=== PATIENT | female | born 1950 | race Caucasian/White ===

== ENCOUNTER → 2017-10-14 | Outpatient (CLI) | payer BC, MEDICARE ==
[~2017-10-14] MED LIST: COPAXONE20 MG SQ; FENTANYL; FLUTICASONE; GADOBENATE DIMEGLUMINE 1 ML IV ONE; LORTAB 10-5001 EACH PO; RAMIPRIL; Z.0.AMBIEN CR12.5 MG PO; Z.0.ARAVA10 MG PO; Z.0.CARVEDILOL6.25 M PO; Z.0.CYMBALTA60 MG PO; Z.0.LEVOTHYROXINE50 PO; Z.0.MELOXICAM7.5 MG PO; Z.0.OMEPRAZOLE40 MG PO; Z.0.ORENCIA 250 MG25 IV; Z.0.PREDNISONE10 M1 PO; Z.0.PREDNISONE10 MG PO; Z.0.ZYRTEC5 MG PO; [UNRECOGNIZED DRUG - OTHER] PO
[2017-10-14 08:15] LABS: CREATININE, SERUM 0.99 mg/dL (0.57-1.11)
--- NOTE | 2017-10-15 07:21 | Diagnostic Imaging Report ---
EXAMINATION: MRI of the cervical spine HISTORY: Multiple sclerosis COMPARISON: Cervical spine MRI and 12/18/2016 TECHNIQUE: Pre-contrast sagittal T1, T2, STIR; axial T1, T2.. Post contrast axial and sagittal T1. Intravenous Contrast: 10 mL Gadavist. FINDINGS: Spinal Cord: Spinal cord size: Normal T1 lesions: None Enhancing lesions: None T2 lesions: None Others: Vertebrae: Again noted status post ACDF with solid interbody fusion from C4 to C7 Discs: Stable mild degenerative changes without significant spinal canal or foraminal stenoses. Craniocervical junction: Normal. Incidental findings: Partially visualized persistent opacification of the tip of the left mastoid air cells. IMPRESSION: 1. No interval change compared to MRI on 12/10/2016. Particularly no cervical spinal cord demyelinating lesions are seen. 2. Stable postoperative and degenerative changes as detailed above. Signed by: Dr. Yulisa Bonilla M.D. on 10/15/2017 7:18 AM
--- NOTE | 2017-10-15 07:31 | Diagnostic Imaging Report ---
EXAMINATION: MRI of the brain with and without contrast . HISTORY:Multiple sclerosis, weakness. COMPARISON:Brain MRI and 12/18/2016 TECHNIQUE: Axial precontrast T1. Postcontrast axial and sagittal FLAIR, axial DWI, T2, and high axial and coronal fat sat T1. Intravenous contrast: 10 mL Gadavist FINDINGS: T2 lesions: Too numerous and too confluent to count callosal, callosal septal interface, periventricular, castellano radiata, centrum semiovale, cortical subcortical and pontine T2 lesions. T1 lesions: None Enhancing lesions: None Corpus callosum volume: Mild volume loss Brain volume: Mild generalized volume loss Other: No mass, hydrocephalus, hemorrhage, acute or chronic infarcts. Unchanged chronic lacunar infarcts in the bilateral basal ganglia. Persistent partial opacification of the left greater than right mastoid air cells, perhaps effusion. IMPRESSION: 1. Unchanged innumerable confluent mostly supratentorial white matter demyelinating T2 lesions. No discrete new MS lesions. 2. Stable mild callosal and brain volume loss. 3. Unchanged small chronic lacunar infarcts. Signed by: Dr. Yulisa Bonilla M.D. on 10/15/2017 7:28 AM
== END ==
LOC: MRI 06:48
PROVIDERS: ATTEND Psychiatry & Neurology Neurology
DX: G35 Multiple sclerosis (principal)
CPT/HCPCS: 36415; 70553; 72156; 82565; 84520

== ENCOUNTER → 2017-11-11 | Outpatient (CLI) | payer BC, MEDICARE ==
[~2017-11-11] MED LIST changes: +GADOBUTROL 10 MMOL/10 ML VIAL IV ONE
[2017-11-11 09:10] LABS: BLOOD UREA NITROGEN 35 mg/dL (7-26); BUN/CREATININE RATIO 43 (6-25); CREATININE, SERUM 0.82 mg/dL (0.57-1.11); EST GLOMERULAR FILTRATION RATE > 60 ML/MIN (60-)
--- NOTE | 2017-11-13 16:10 | Diagnostic Imaging Report ---
Examination: MRI of the lumbar spine without and with contrast History: Low back pain. Paresthesias right upper leg. History of L4-5 laminectomy, L3-4 fusion 2008. Also history of MS. Comparison: MRI lumbar spine reports 07/18/2013 and 01/17/2012 Technique: Sagittal T1 pre- and post-contrast, T2, STIR; axial T1 pre- and post-contrast, T2; axial proton density angled for the discs. Intravenous contrast: 10 cc of MultiHance FINDINGS: It is assumed that there are 5 lumbar vertebrae. Surgical changes: laminectomy at L3-L4. L3-L4 decompression. Posterior fusion procedure with bilateral pedicle screws and intervertebral spacer at L3-L4. Curvature: Grade 1 anterolisthesis of L2 over L3, L3 over L4 and L4 over L5. Grade 1 mild retrolisthesis of L5 over S1. Levoscoliosis centered at L2-L3. Vertebrae: No acute fracture or aggressive lesion stable endplate irregularities from L2 through L5 without Modic type I changes Conus: Normal, terminating at L1. No T2 or enhancing lesions from T10 to S1. Cauda equina: Unremarkable. Lower thoracic:Grossly patent canal and foramina Paraspinal muscles:Bilateral severe atrophy at the sacral level. Degenerative changes: Disc degeneration with loss of T2 signal from L2 through S1. Decreased intervertebral space at L4-L5. Stable mild depression of the L3 and L4 superior endplates. L1-L2: Unremarkable. L2-L3:Diffuse disc bulge with superimposed right foraminal disc protrusion and mild facet hypertrophy results in mild canal stenosis, severe right and mild left foraminal narrowing, mildly progressed L3-L4: Surgical level. Grade 1 anterolisthesis. No canal stenosis. Mild bilateral foraminal narrowing. L4-L5: Mild diffuse disc bulge and mild facet hypertrophy without significant canal stenosis and mild right foraminal narrowing. Nonvisualization of the ligamentum flavum secondary to previous intervention. L5-S1: Mild diffuse disc bulge with superimposed left subarticular disc protrusion results in no significant canal stenosis, narrowing of the left subarticular recess and severe left foraminal narrowing, mildly progressed. Incidentally noted 2 cm cyst at the right internal pole region. IMPRESSION: Surgical changes at L3-4 and L4-5 without evidence of complication. Severe right foraminal narrowing at L2-L3 secondary to degenerative changes. Severe left foraminal narrowing at L5-S1 secondary to degenerative changes. Other degenerative changes as described above. Mild canal stenosis Signed by: DR Collin Vazquez M.D. on 11/13/2017 4:07 PM
== END ==
LOC: MRI 07:25
PROVIDERS: ATTEND Physical Medicine & Rehabilitation
DX: M54.16 Radiculopathy, lumbar region (principal)
CPT/HCPCS: 36415; 72158; 82565; 84520; A9585

== ENCOUNTER → 2020-01-29 | Outpatient (CLI) | payer BC, MEDICARE ==
[~2020-01-29] MED LIST changes: -GADOBENATE DIMEGLUMINE 1 ML IV ONE; -GADOBUTROL 10 MMOL/10 ML VIAL IV ONE
[2020-01-29 11:07] LABS: CREATININE, SERUM 1.29 mg/dL (0.57-1.11)
--- NOTE | 2020-01-29 14:48 | Diagnostic Imaging Report ---
Exam: Brain MRI without IV contrast History: Multiple sclerosis, radiculopathy Comparison studies: Brain MRI with IV contrast on 10/14/2017. Technique: Sagittal and axial T2 FLAIR, axial T2, axial DWI and axial and coronal T1. IV contrast: None. Findings: T2 lesion load: Number: Too numerous and too confluent count or measure white matter lesions Location: Juxtacortical, subcortical, deep supratentorial and periventricular, callosal septal interface and odell. No gross new lesions. Moreover, degree of lesion confluency somewhat limits evaluation for new lesion. T1 hypointense demyelinating lesions. None of CSF signal intensity. Corpus callosum volume: Mild volume loss. Brain volume: Mild generalized volume loss. Other: Chronic cortical/subcortical right parietal insult along the right superior parietal lobule and pars marginalis with encephalomalacia and gliosis is unchanged. Small chronic lacunar infarcts present within the basal ganglia and in the left thalamus. No mass, hemorrhage, acute ischemia, hydrocephalus or extra axial fluid collection. Incidental findings: Unchanged chronic T2 hyperintense inflammatory mucosal thickening or effusions in the bilateral mastoids. IMPRESSION: 1. No changes from the prior brain MRI of 10/14/2017. 2. Too numerous and too confluent to count white matter lesions which can be seen with the clinical diagnosis of multiple sclerosis or severe chronic microvascular ischemic changes are unchanged. No gross new lesion. 3. Unchanged chronic right superior parietal infarct and small chronic lacunar infarcts. 4. Unchanged mild generalized parenchymal volume loss. Exam was performed without IV contrast which does limit evaluation for potential new active demyelinating lesions. Signed by: Dr. Joaquim Lopez M.D. on 01/29/2020 2:45 PM
--- NOTE | 2020-01-29 15:06 | Diagnostic Imaging Report ---
History: Multiple sclerosis, lumbar radiculopathy. Comparison studies: Cervical spine MRI 10/14/2017. Technique: Sagittal T1, T2 and IR, axial T2 and axial gradient echo Intravenous contrast: None Findings: Alignment: Normal lordosis. No scoliosis. Cervicomedullary junction: No abnormalities. Patent foramen magnum. Soft tissues: No T2 hyperintense inflammatory changes. Spinal cord: No gross cord signal abnormality from the foramen magnum through T1. Vertebrae: Changes of prior anterior cervical discectomy and fusion from C4 to C7. Hardware remains in place at C4-C5 and has been removed at C6-C7. Solid interbody fusion present at C4-C5 and at C6-C7. Degenerative changes: C2-C3: Mildly degenerated disc. Small disc osteophyte complex does not result in significant canal stenosis. Patent neural foramina. C3-C4: Mildly degenerated disc. Small asymmetric right disc osteophyte complex does not result significant canal stenosis. No significant foraminal stenosis. C4-C5: Fused level. No significant canal or foraminal stenosis. C5-C6: Small residual disc space seen on the sagittal T2. Mild bilateral foraminal stenosis due to uncovertebral arthrosis. No significant canal stenosis. C6-C7: Fused level. Mild bilateral foraminal stenosis due to uncovertebral arthrosis. No significant canal stenosis C7-T1: Mildly degenerated disc. Small disc bulge and thickened ligamentum flavum result in mild canal stenosis. Patent neural foramina. IMPRESSION: 1. No changes from the prior cervical spine MRI of 10/14/2017. 2. No evidence of demyelinating disease in the cervical spinal cord. 3. Stable postoperative and degenerative changes with multilevel disc degeneration and mild multilevel foraminal stenosis without significant canal stenosis. Signed by: Dr. Joaquim Lopez M.D. on 01/29/2020 3:02 PM
--- NOTE | 2020-01-29 15:21 | Diagnostic Imaging Report ---
Thoracic spine MRI without IV contrast History: MS, lumbar radiculopathy Comparison studies: Thoracic spine MRI of 01/02/2014 Technique: Sagittal T1, T2 and STIR without contrast; axial and coronal T2. Findings: Several pulse sequences are somewhat limited artifacts related to patient motion. Spinal limitations: Curvature: Mild increased kyphosis at T9 secondary to chronic compression fracture. Paraspinal soft tissues: No T2 hyperintense inflammatory changes. Spinal cord: The spinal cord is normal in size and grossly normal in signal intensity through the tip of the conus at L1. Vertebrae: Chronic T9 compression fracture with approximate 70% height loss with minimal retropulsion which results in mild canal stenosis, unchanged. No acute compression fracture, infection, neoplasm or marrow edema. Degenerative changes: Mild multilevel disc degeneration. Small paracentral disc protrusion at T2-T3 and small disc bulges at T5-T6, T6-T7 and T7-T8 do not result significant canal stenosis. Retropulsed T8 vertebral body with disc osteophyte complex results in mild canal stenosis at T7-T8. Mild foraminal stenosis on the left T8-T9 due to disc ossify complex and facet arthrosis. Mild foraminal stenosis bilaterally at T9-T10 and on the left at T10-T11 due to facet arthrosis. IMPRESSION: 1. No significant changes from the prior lumbar spine MRI of 01/02/2014. 2. No gross cord signal abnormalities to indicate demyelinating disease. 3. Unchanged chronic T9 vertebral body compression fracture with 70% height loss and minimal retropulsion which results in mild canal stenosis. No new compression fracture. 4. Mild multilevel degenerative changes as described. Signed by: Dr. Joaquim Lopez M.D. on 01/29/2020 3:18 PM
--- NOTE | 2020-01-29 16:04 | Diagnostic Imaging Report ---
Exam: Lumbar spine MRI without IV contrast History: MS, lumbar radiculopathy Comparison studies: Lumbar spine MRI 11/11/2017. Technique: Sagittal and axial T2, sagittal T1 and sagittal STIR. Intravenous contrast: None Findings: Number of lumbar vertebral bodies: 5. Alignment: Lumbar levocurvature centered at L3-L4, reversal the usual lumbar lordosis at L4-L5. Minimal grade 1 anterolisthesis of L2 on L3 and L4 and L5 are unchanged. Soft tissues: Chronic postsurgical changes in the dorsal lumbar soft tissues. Paraspinal muscles: Symmetric fatty-replaced atrophy atrophic changes near the lumbosacral junction. Lower thoracic cord: Normal in signal and morphology. The tip of the conus is at L1. Cauda equina: No masses. No arachnoiditis. Vertebrae: Postsurgical changes of prior posterior instrumented fusion and discectomy with disc spacer in place at L3-L4 as well as laminectomies at L3-L4 and L4-L5. A chronic superior endplate depression deformity with mild height loss is unchanged. No acute compression fracture. No infection or neoplasm. Degenerative changes: L1-L2: Patent canal and foramina. No disc herniation. L2-L3: Moderately degenerated disc with degenerative endplate changes without endplate edema.. Grade 1 anterolisthesis of L2 on L3 with associated uncovered disc/disc bulge, thickened ligamentum flavum and facet arthrosis with mild to moderate canal stenosis, bilateral subarticular recess stenosis with potential impingement on the bilateral L3 subarticular nerve roots and severe right and mild left foraminal stenosis. L3-L4: Surgical level. No significant canal or foraminal stenosis. L4-L5: Severely degenerated disc with near complete loss of disc height as well as degenerative endplate changes without endplate edema. Minimal anterolisthesis of L4 on L5 with associated disc/disc bulge asymmetric to the right with new superimposed 12 mm x 8 mm x 13 mm (SI x AP x TV) central disc extrusion result in moderate canal stenosis despite prior laminectomies. Disc herniation impinges on the left L5 nerve root and abuts the descending right S1 nerve root. Disc bulge and thickened ligamentum flavum on the right above the right L5 nerve root. Disc bulge and facet arthrosis result in mild right foraminal stenosis. Patent left foramen. L5-S1: Moderately degenerated disc asymmetrically greater on the left where there are degenerative endplate changes without endplate edema. Asymmetric left disc osteophyte complex and facet arthrosis result in severe left foraminal stenosis. Additional findings: A T2 hyperintense right inferior pole renal lesion is most likely a cyst. IMPRESSION: 1. New L4-L5 disc extrusion impinges on the left L5 nerve root and contributes to moderate canal stenosis despite prior laminectomies at this level. Right L4-L5 subarticular recess also narrowed and disc abuts the right L5 and S1 nerve roots. 2. No other significant changes from the prior lumbar spine MRI of 11/11/2017. 3. Prior posterior L3-L4 fusion and discectomy and laminectomies at L3-L4 and at L4-L5. 4. Degenerative changes with unchanged multilevel disc degeneration, mild to moderate canal stenosis and bilateral subarticular recess stenosis at L2-L3 and severe foraminal stenosis on the right at L2-L3 and on the left at L5-S1. Signed by: Dr. Joaquim Lopez M.D. on 01/29/2020 4:01 PM
== END ==
LOC: MRI 10:00
PROVIDERS: ATTEND Physician Assistant
DX: G35 Multiple sclerosis (principal); R41.3 Other amnesia; M54.16 Radiculopathy, lumbar region
CPT/HCPCS: 36415; 70551; 72141; 72146; 72148; 82565; 84520

== ENCOUNTER 2020-08-02 20:48 | Inpatient (IN) | payer BC, MEDICARE ==
[~2020-08-02] VITALS: Ht 162.6 cm; Wt 59.9 kg
--- OUTSIDE RECORDS SUMMARY | 2020-08-02 21:50 | XMS REPORT | Clinical Summary ---
Author Author [facility] Address Unknown Phone Unavailable Care Team Providers Care Operational Communication Chief Name Role Phone Joseph Ornelas MD PCP Allergies Comments Active Allergy Reactions Severity Noted Date Sulfa (Sulfonamide Rash Low 02/21/2017 Antibiotics) Cimetidine Diarrhea 02/21/2017 Medications End Date Status Medication Sig Dispensed Refills Start Date Active mirtazapine (REMERON Take 30 mg by 0 KAREN-TAB) 30 MG mouth disintegrating tablet nightly. Active omeprazole (PriLOSEC) 40 Take 40 mg by 0 MG capsule mouth daily. Active carvedilol (COREG) 12.5 Take 12.5 mg 0 MG tablet by mouth 2 (two) times a day with meals. Active valACYclovir (VALTREX) Take 500 mg 0 500 MG tablet by mouth 2 (two) times a day. Active LORAZepam (ATIVAN) 0.5 MG Take 0.5 mg 0 tablet by mouth every 6 (six) hours as needed for anxiety. Active levothyroxine (SYNTHROID, Take 88 mcg 0 LEVOXYL) 88 mcg tablet by mouth every morning. Active ergocalciferol (VITAMIN Take 50,000 0 D2) 50,000 unit capsule Units by mouth once a week. Active aspirin (ECOTRIN) 81 MG Take 81 mg by 0 enteric coated tablet mouth daily. Active traMADol (ULTRAM) 50 mg Take 50 mg by 0 tablet mouth every 6 (six) hours as needed for moderate pain. Active predniSONE (DELTASONE) 10 Take 10 mg by 0 mg tablet mouth daily. Active fentaNYL (DURAGESIC) 75 Place 1 patch 0 mcg/hr on the skin every third day. Active fluticasone (FLONASE) 50 2 sprays by 0 mcg/actuation nasal spray Each Nare route daily. Active dimethyl fumarate 240 mg 0 capsule,delayed 7 release(DR/EC) Active baclofen (LIORESAL) 10 MG Take 10 mg by 0 tablet mouth 3 (three) times a day. Active temazepam (RESTORIL) 7.5 Take 7.5 mg 0 MG capsule by mouth nightly as needed for sleep. Active metoprolol succinate XL Take 50 mg by 0 (TOPROL-XL) 50 mg 24 hr mouth daily. tablet Active apixaban (ELIQUIS) 2.5 mg Take by mouth 0 tablet 2 (two) times a day. Active furosemide (LASIX) 20 mg Take 20 mg by 0 tablet mouth 2 (two) times a day. Active Problems Problem Noted Date Closed displaced fracture of proximal phalanx of righ t little finger 03/07/2020 Rotator cuff arthropathy of right shoulder 0 Closed fracture of multiple pubic rami 02/21/2017 Encounters Care Team Description Date Type Specialty Stan Spencer MD Right shoulder pain, unspecified chronic ity (Primary Dx); Rotator cuff arthropathy of right shoulder 03/03/2020 Office Visit Orthopedic Surgery Keyana Max MD 03/02/2020 Hospital Radiology Encounter Keyana Max MD 03/02/2020 Hospital Radiology Encounter Keyana Max MD 03/02/2020 Hospital Radiology Encounter Keyana Max MD Closed displaced fracture of proximal ph alanx of right little finger, initial encounter (Primary Dx); Finger pain, right 03/02/2020 Office Visit Orthopedic Surgery 03/02/2020 Travel 02/29/2020 Travel after 08/02/2019 Surgical History Surgery Date Site/Laterality Comments FOOT SURGERY 09/23/1996 - 09/22/1997 KNEE SURGERY 1992, 1997 BACK SURGERY 09/23/2008 - 09/22/2009 LAMINECTOMY 09/23/2008 - 09/22/2009 CARPAL TUNNEL RELEASE 09/23/2000 - 09/22/2001 SHOULDER SURGERY 09/23/2007 - 09/22/2008 SPINAL FUSION KNEE ARTHROSCOPY 09/23/1993 - 09/22/1994 ORTHOPEDIC SURGERY willa knee, right carpal tunn el, willa shoulder, left foot HYSTERECTOMY APPENDECTOMY TONSILLECTOMY Medical History Medical History Date Comments CTS (carpal tunnel syndrome) Arthritis 1993 Hypertension Disease of thyroid gland Depression Stroke (HCC) GERD (gastroesophageal reflux disease) Closed fracture of multiple pubic rami 02/21/2017 (HCC) Family History Medical History Relation Name Comments Diabetes Mother Relation Name Status Comments Mother Social History Date Tobacco Use Types Packs/Day Years Used Never Smoker Smokeless Tobacco: Never Used Drinks/Week oz/Week Comments Alcohol Use No Sex Assigned at Date Recorded Not on file Last Filed Vital Signs Reading Time Taken Comments Vital Sign - - Blood Pressure - - Pulse - - Temperature - - Respiratory Rate - - Oxygen Saturation - - Inhaled Oxygen Concentration 49 kg (108 lb) 03/03/2020 8:47 AM CDT Weight 162.6 cm (5' 4") 03/03/2020 8:47 AM CDT Height 18.54 03/03/2020 8:47 AM CDT Body Mass Index Plan of Treatment Health Maintenance Due Date Last Done Comments COLONOSCOPY SCREENING 1999 SHINGLES VACCINES (#1) 1999 65+ PNEUMOCOCCAL VACCINE 2014 (1 of 1 - PPSV23) INFLUENZA VACCINE 04/23/2020 BREAST CANCER SCREENING 06/06/2021 06/06/2019, 05/28/2018 Procedures Comments Procedure Name Priority Date/Time Associated Diag nosis XR SHOULDER 2+ VW RIGHT Routine 03/03/2020 Right shoulder pain, 9:25 AM CDT unspecified chronicity [place] ARTHROCENTESIS Routine 03/03/2020 Rotator cuff arthropathy ASPIR&/INJ MAJOR JT/BURSA 9:00 AM CDT of right sh oulder W/O US XR FINGER 2+ VW RIGHT Routine 03/02/2020 Finger p ain, right 3:39 PM CDT XR UPPER EXTREMITY Routine 02/27/2020 EXTERNAL STUDY 3:27 PM CDT XR UPPER EXTREMITY Routine 02/27/2020 EXTERNAL STUDY 3:27 PM CDT XR UPPER EXTREMITY Routine 02/27/2020 EXTERNAL STUDY 3:26 PM CDT after 08/02/2019 Results * XR Shoulder 2+ Vw Right (03/03/2020 9:25 AM CDT) Specimen Narrative Performed At [facility] Three-view x-rays of the right shoulder : There is evidence of advanced rotator cuff arthropathy with a pulled posterior glenoid wear pattern. She has severe proximal migration of th e humerus with obviously a chronically deficient rotator cuff Performing Organization Address [facility] Code P lori Number [facility] [id number] [place] [address] * Large Joint Arthrocentesis: shoulder, R glenohumeral (03/03/2020 9:00 AM CDT) Narrative Performed At Stan Spencer MD 03/03/2020 9:46 AM Large Joint Arthrocentesis: shoulder, R glenohumeral Consent given by: patient Supporting Documentation Indications: pain Procedure Details Location: shoulder - R glenohumeral Right side: Approach: posterior Right shoulder medications administered : 80 mg methylPREDNISolone acetate 40 mg/mL; 3 mL lidocaine 10 mg/mL (1 %) * XR Finger 2+ Vw Right (03/02/2020 3:39 PM CDT) Specimen Narrative Performed At [facility] There is a small finger proximal phalan x base fracture with some dorsal angulation. Coronal alignment is good . Performing Organization Address [facility] Code P lori Number [facility] [id number] [place] [address] * XR Upper Extremity External Study (02/27/2020 3:27 PM CDT) Only the most recent of 3 results within the time period is included. Specimen Narrative Performed At This exam was not acquired at a [facility] facility an d has not been [facility] interpreted by a [facility] Provider. The exam was imported into our imaging system. Performing Organization Address [facility] Code P lori Number [facility] [id number] [place] [address] after 08/02/2019 Insurance Type Payer Benefit Subscriber ID Effective Phone Address Plan / Dates Group [facility] [id number] 2017-P [facility] [place] [facility] Medicare MEDICARE MEDICARE [id number] [id number] [place], PART A AND [facility] B [address] [facility] (Home) PATSY SOLORZANO [id number] Advance Directives For more information, please contact: [phone] Patient Residential Living Assistant Explanation Type Date Recorded Advance Directives, Living Will and Medical Power of Club Director
--- OUTSIDE RECORDS SUMMARY | 2020-08-02 21:51 | XMS REPORT | Continuity of Care Document ---
Author Author [email or web address] [employer] Address Unknown Phone Unavailable Care Team Providers Care [place] [employer] Person Name Role Phone [employer] Unavailable Un available Problems Problem Status Onset Date Classification Date Reported Comments Source Rheumatoid arthritis Active Problem 05/20/2018 Sivakumar Gómez Multiple sclerosis Active Problem 05/20/2018 Sivakumar Gómez Left knee pain Active Problem 05/20/2018 Sivakumar Gómez Primary osteoarthritis of left knee Active Problem Sivakumar Gómez senior living (current) use of opiate analgesic Active Problem 05/20/2018 Sivakumar Gómez Chronic pain syndrome Active Problem 05/20/2018 Sivakumar Gómez Insomnia, unspecified type Act abhishek Diagnosis 1 10/07/2016 Sivakumar Gómez Pain in joint involving left lower leg Active Diagnosis 08/07/2017 Sivakumar Gómez Complete tear of right rotator cuff Active Diagnosis 1 10/07/2016 Sivakumar Gómez Muscle spasm Active Diagnosis 08/07/2017 Sivakumar Gómez Lumbar radiculopathy Active Diagnosis 11/01/2017 Sivakumar Gómez Osteoporosis without pathological fracture Active Problem 01/07/2020 Sivakumar Gómez Knee pain, left Active Problem 06/30/2020 Sivakumar Gómez Vitamin D deficiency Active Problem 06/30/2020 Sivakumar Gómez Rheumatoid arthritis with unknown rheuma toid factor status Active Diag nosis 06/30/2020 Sivakumar Gómez Encounter for long-term (current) use of other high-risk medications Active Prob jone 06/30/2020 Sivakumar Gómez Age-related osteoporosis without current pathological fracture Active Prob jone 01/07/2020 Sivakumar Gómez Abnormal CBC Active Diagnosis 07/29/2018 Sivakumar Gómez Long-term (current) use of other medicat ions - High Risk Active Prob jone 06/21/2016 Sivakumar Gómez Rheumatoid arthritis Active Problem 06/21/2016 Sivakumar Gómez Hypertension Active Problem 06/21/2016 Sivakumar Gómez Osteoporosis, postmenopausal A ctive Problem Sivakumar Gómez Unspecified vitamin D deficiency Active Diagnosis 0 01/20/2014 Sivakumar Gómez Unspecified drug dependence Ac tive Diagnosis 0 04/07/2015 Sivakumar Gómez Insomnia Active Problem 06/30/2020 Sivakumar Gómez Osteoporosis Active Diagnosis 06/30/2020 Sivakumar Rico Encounter for screening for other infect ious and parasitic diseases Active Diag nosis 02/05/2020 Sivakumar Gómez Encounter for screening for other viral diseases Active Diagnosis 02/05/2020 Sivakumar Gómez Encounter for screening for other bacterial diseases Active Diagnosis 02/05/2020 Sivakumar Gómez Encounter for screening for infectious a nd parasitic diseases, unspecified Active Diagnosis 02/05/2020 Sivakumar Gómez Encounter for screening for respiratory tuberculosis Active Diagnosis 02/05/2020 Sivakumar Gómez Solitary pulmonary nodule Acti ve Problem [facility] 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 03/05/2020 [facility] Pain in unspecified hip Active Problem 03/05/2020 [facility] Pneumonia due to other specified bacteria Active Problem 03/05/2020 [facility] Rheumatoid arthritis with rheumatoid fac tor of unspecified site without organ or systems involvement Active Problem 03/05/2020 [facility] Immunocompromised Active Problem 06/30/2020 Sivakumar Gómez Olecranon bursitis of left elbow Active Diagnosis 1 Sivakumar Gómez Medications Medication Details Route Status Patient Instructions Ordering Provider Order Date Source Voltaren Gel apply 3grams to a ffected area Transdermal Active 1% Transdermal Four times a day [place] 06/29/2020 Sivakumar Gómez Prolia as directed Subcutaneous Active 60 MG/ML Subcutaneous q 6 months [place] 05/03/2020 Sivakumar Gómez PredniSONE 4 tablets with food or milk Orally Active 1 MG Orally Once a day [place] 03/31/2020 Sivakumar Gómez Orencia 500mg Intravenous Active 250 MG Intravenous at w eyak 0 2 4 and then q4wks [place] 02/04/2020 Sivakumar Gómez PredniSONE 2 tablets Orally Active 5 MG Orally Once a day [place] 10/14/2019 Sivakumar Gómez Hydroxychloroquine Sulfate 1 t ablet with food or milk Orally Active 200 MG Orally Once a day [place] sandhu 10/14/2019 Sivakumar Gómez Ambien 1 tablet at bedtime Orally Active 5 MG Orally Once a day prn [place] 09/30/2019 Sivakumar Gómez Leflunomide 1 tablet Orally Active 10 MG Orally Once a day [place] 09/10/2019 Sivakumar Gómez Ambien 1 tablet at bedtime Orally Active 5 MG Orally Once a day [place] 08/25/2019 Sivakumar óGmez Prolia as directed Subcutaneous Active 60 MG/ML Subcutaneous q 6 months [place] 08/14/2019 Sivakumar Gómez Voltaren Gel apply 3grams to a ffected area Transdermal Active 1% Transdermal Four times a day [place] 07/30/2019 Sivakumar Gómez PredniSONE 1 tablet Orally Active 5 MG Orally Once a day [place] 04/28/2018 Sivakumar Gómez Leflunomide 1 tablet Orally Active 20 MG Orally Once a day [facility] 04/15/2018 Sivakumar Gómez Leflunomide take 1 tablet by m out once daily Orally Active 20 MG Orally Once a day [facility] 01/18/2018 Sivakumar Gómez PredniSONE 2 tablets Orally Active 5 MG Orally Once a day [facility] 01/01/2018 Sivakumar Gómez Leflunomide take 1 tablet by m outh once daily Orally Active 20 MG Orally Once a day [facility] 12/18/2017 Sivakumar Gómez Tramadol HCl as directed Orally Active 50 MG Orally every 6 ho urs [facility] 11/03/2017 Sivakumar Gómez Rituxan 1000 mg Intravenous Active 100 MG/10ML Intravenous [facility] 09/20/2017 Sivakumar Gómez [place] 1 tablet as needed Orally Active 10-325 MG Orally BID [facility] 09/04/2017 Sivakumar Gómez Tramadol HCl as directed Orally Active 50 MG Orally every 6 ho urs [facility] 08/29/2017 Sivakumar Gómez Baclofen 1 tablet with food or milk Orally Active 10 MG Orally daily [facility] 08/05/2017 Sivakumar Gómez Arava 1 tablet Orally Active 20 MG Orally Once a day [facility] 05/02/2017 Sivakumar Gómez Arava 1 tablet Orally Active 20 MG Orally Once a day [facility] 05/02/2017 Sivakumar Gómez [place] 1 tablet as needed Orally Active 10-325 MG Orally daily [facility] 02/22/2017 Sivakumar Gómez Fentanyl 1 patch to skin Transdermal Active 75 MCG/HR Transdermal q72 [facility] 01/25/2017 Sivakumar Gómez Hydroxychloroquine Sulfate 1 t ablet with food or milk Orally Active 200 MG Orally Once a day [facility] 11/30/2016 Sivakumar Gómez Fentanyl 1 patch to skin Transdermal Active 75 MCG/HR Transdermal q72 [place] 11/28/2016 Sivakumar Gómez [place] 1 tablet as needed Orally Active 10-325 MG Orally daily [facility] 11/28/2016 Sivakumar Gómez PredniSONE 1 tablet Orally Active 1 MG Orally Four times a day [place] 09/14/2016 Sivakumar Gómez Ridaura 1 capsule Orally Active 3 MG Orally Once a day [facility] 05/17/2016 Sivakumar Gómez Fentanyl 1 patch to the skin Transdermal Active 75 MCG/HR Transdermal Q72 hrs [place] 02/28/2016 Sivakumar Gómez Gel One 1 injection Intra- articular Active 10 mg/ml Intra- articular Every 6 mths [facility] 10/17/2015 Sivakumar Gómez Cholecalciferol 1 capsule once a week Orally Active [id number] UNIT Orally [place] 03/14/2015 Sivakumar Gómez Cholecalciferol 1 capsule once a week Orally Active [id number] UNIT Orally [place] 03/14/2015 Sivakumar Gómez Leflunomide 1 tablet Orally Active 20 MG Orally Once a day [facility] 12/03/2014 Sivakumar Gómez Leflunomide take 1 tablet by m out once daily Orally Active 20 MG Orally [facility]2014 Sivakumar Gómez Boniva 1 tablet Orally Active 150 MG Orally once a mo [facility] 01/19/2014 Sivakumar Gómez Ambien 1 tablet at bedtime Orally Active 5 MG Orally Bedtime [facility] Sivakumar Gómez Carvedilol as directed Orally Active 6.25 MG Orally [facility] Benson Gómez Omeprazole 2 capsules Orally Active 20 MG Orally Once a day [place] Sivakumar Gómez Tramadol HCl TAKE 1 TABLET BY MOUTH EVERY 4 TO 6 HOURS NEEDED FOR PAIN NA Active 50 MG [place] Sivakumar Gómez Fentanyl 1 patch to skin Transdermal Active 75 MCG/HR Transdermal q72 [facility] Sivakumar Gómez [place] 1 tablet as needed Orally Active 10-325 MG Orally daily [place]isa Sivakumar Gómez PrednisoLONE as directed Orally Active 10 MG Orally [place] Gómez Zolpidem Tartrate TAKE 1 TABLE T BY MOUTH DAILY AT BEDTIME NA Active 5 MG [facility] Sivakumar Gómez Zyrtec Allergy 1 tablet Orally Active 10 MG Orally Once a day [place]isa Sivakumar Gómez Mirtazapine 1 tablet on the to ngue and allow to dissolve before bedtime in the evening Orally Active 15 MG Orally Once a day Denisa Benson Gómez Mirtazapine 1 tablet on the to ngue and allow to dissolve before bedtime in the evening Orally Active 15 MG Orally Once a day Denisa Benson Gómez Fentanyl 1 patch to the skin Transdermal Active 75 MCG/HR Transdermal Q72 hrs [place] Sivakumar Gómez Ambien 1 tablet at bedtime Orally Active 5 MG Orally Bedtime [facility] Sivakumar Gómez [place] 1 tablet as needed Orally Active 10-325 MG Orally daily [facility] Sivakumar Gómez Omeprazole 2 capsules Orally Active 20 MG Orally Once a day [facility] Sivakumar Gómez PrednisoLONE as directed Orally Active 10 MG Orally [facility] Benson Gómez Zyrtec Allergy 1 tablet Orally Active 10 MG Orally Once a day [facility] Sivakumar Gómez Carvedilol 1 tablet with food Orally Active 6.25 MG Orally Twice a day [place] Sivakumar Gómez Tramadol HCl as directed Orally Active 50 MG Orally every 6 ho urs [facility] Sivakumar Gómez Tecfidera 1 capsule Orally Active 240 MG Orally Twice a d ay [facility] Sivakumar Gómez Tramadol HCl as directed Orally Active 50 MG Orally every 6 ho urs [facility] Sivakumar Gómez Baclofen 1 tablet with food or milk Orally Active 10 MG Orally qhs Regino Gómez Reclast 5MG IV Intravenous Active 5 MG/100ML Intravenous Q YEAR Regino Gómez Lorazepam 1 tablet at bedtime as needed Orally Active 0.5 MG Orally Once a day [place] Sivakumar Gómez Zyrtec Allergy not defined NA Active qd [place] Sivakumar Gómez Tylenol 1 tablet as needed Orally Active 325 MG Orally prn [place] Sivakumar Gómez Reclast 5MG IV Intravenous Active 5 MG/100ML Intravenous Q YEAR [place] Sivakumar Gómez Omeprazole 1 capsule Orally Active 40 MG Orally Once a day [place] Benson Gómez Acyclovir 1 capsule orally Active 1000 mg orally once a d ay Regino Gómez Synthroid 1 tablet every morni ng on an empty stomach Orally Active 100 mcg Orally QD [place] Sivakumar Gómez Mirtazapine 1 tablet before be dtime in the evening Orally Active 30 MG Orally Once a day [facility] Sivakumar Gómez Intravenous Immunogobin as dir ected NA Active [place] Benson Gómez PredniSONE TAKE 2 TABLETS BY M OUTH ONCE DAILY NA Active 5 MG [place] Sivakumar Gómez Multivitamins as directed Orally Active Orally QD [place] Benson Gómez Tylenol 1 tablet as needed Orally Active 325 MG Orally prn [place] Sivakumar Gómez Multivitamins as directed Orally Active Orally QD Regino Gómez Synthroid 1 tablet every morni ng on an empty stomach Orally Active 100 mcg Orally QD Regino Gómez Rituxan 1000 mg Intravenous Active 100 MG/10ML Intravenous Fakoya Benson Gómez Omeprazole 1 capsule Orally Active 40 MG Orally Once a day Antwan Gómez Mirtazapine 1 tablet before be dtime in the evening Orally Active 30 MG Orally Once a day [place] Sivakumar Gómez Lorazepam 1 tablet at bedtime as needed Orally Active 0.5 MG Orally Once a day Regino Gómez PredniSONE 1 tablet Four times a day Orally 30 days NA Active 1 MG [place] Sivakumar Gómez Leflunomide 1 tablet Orally Active 20 MG Orally Once a day Regino Gómez Fentanyl 1 patch to the skin Transdermal Active 75 MCG/HR Transdermal Q72 hrs [place] Sivakumar Gómez Altace 1 tablet Orally Active 5 MG Orally once a day [place] Benson Gómez Zolpidem Tartrate TAKE 1 TABLE T BY MOUTH DAILY AT BEDTIME NEEDED Orally Active 12.5 MG Orally prn [place] Sivakumar Gómez Tramadol take 1 tablet by mout h every 4 to 6 hours as needed orally Active 50 mg orally every 4-6 hours prn pain [place] Sivakumar Gómez Meloxicam TAKE 1 TABLET BY AMY TH TWICE DAILY NA Active 7. 5 MG Ambreen Gómez Zolpidem Tartrate ER TAKE 1 TA BLET BY MOUTH DAILY AT BEDTIME NEEDED FOR SLEEP NA Active 12.5 MG Ambreen Gómez Lidocaine APPLY SPARINGLY TO A FFECTED AREA FOUR TIMES DAILY NEEDED NA Active 5 % Ambreen Gómez Copaxone 1 injection Subcutaneous Active 20 MG/ML Subcutaneous Once a day Brian Gómez Vitamin B-12 1 injection NA Active 1cc stopped Guillermo Benson Gómez PredniSONE 2 tablets Orally Active 5 MG Orally Once a day Arvind Gómez Cymbalta 1 capsule Orally Active 60 MG Orally once a day Benson Gómez Leflunomide take 1 tablet by m outh once daily Orally Active 20 MG Orally Once a day Ambreen Gómez Rituxan 1000MG IV QQ4-6MONTHS Intravenous Active 1000MG Intravenous Sivakumar Gómez PredniSONE 1 tablets NA Active 10 mg once a day Benson Gómez PredniSONE TAKE 3 TABLETS BY M OUTH ONCE DAILY NA Active 1 MG Sivakumar Gómez Meloxicam TAKE 1 TABLET BY AMY TH TWICE DAILY NA Active 7. 5 MG Sivakumar Gómez Acyclovir 1 application to aff ected area Externally Active 5 % Externally every 3 hrs Sivakumar Gómez PredniSONE 1 tablet Orally Active 1 MG Orally Once a day Benson Gómez Doxycycline 1 capsule on an em pty stomach in the morning Orally Active 40 MG Orally Once a day Sivakumar Gómez Eliquis 1 tablet Orally Active 2.5 MG Orally twice a d ay Regino Gómez Amlodipine Besylate 1 tablet Orally Active 5 MG Orally Once a day Regino Gómez Metoprolol Succinate 1 capsule Orally Active 50 MG Orally Twice a day Regino Gómez Plaquenil 1 tablet Orally Active 200 MG Orally BID Regino Gómez Amiodarone HCl 1 tablet Orally Active 200 MG Orally Once a da y Regino Gómez Calcium 1 tablet with meals Orally Active 600 MG Orally Twice a day Regino Gómez Vitamin D 1 capsule Orally Active 50 MCG (2000 UT) Orally Once a day Regino Gómez Hydroxychloroquine Sulfate 1 t ablet with food or milk Orally Active 200 MG Orally Once a day [place] s Sivakumar Gómez Hydroxychloroquine Sulfate 1 t ablet with food or milk Orally Active 200 MG Orally Once a day [place] Sivakumar Gómez Allergies, Adverse Reactions, Alerts Substance Category Reaction Severity Reaction type Status Date Reported Comments Source SULFA Adverse Reaction rash Adverse Reaction Active 10/03/2017 Sivakumar Gómez TAGAMET Adverse Reaction diarrhea Adverse Reaction Active 10/03/2017 Sivakumar Gómez Tagamet HB Adverse Reaction diarrhea Adverse Reaction Active 06/28/2020 Sivakumar Góemz Methotrexate Adverse Reaction elevated liver enzymes Adverse Reaction Active 06/28/2020 Sivakumar Gómez Actemra Adverse Reaction Info Not Available Adverse Reaction Active 06/28/2020 Sivakumar Gómez Orencia Adverse Reaction Info Not Available Adverse Reaction Active 06/28/2020 Sivakumar Gómez Xeljanz Adverse Reaction Info Not Available Adverse Reaction Active 06/28/2020 Sivakumar Gómez Remicade Adverse Reaction Multiple sclerosis Adverse Reaction Active 06/28/2020 Sivakumar Gómez Hemocyte Adverse Reaction no longer needed Adverse Reaction Active 06/28/2020 Sivakumar Gómez Sulfa Adverse Reaction Rash Adverse Reaction Active 06/28/2020 Sivakumar Gómez Plaquenil Adverse Reaction dizziness Adverse Reaction Active 06/28/2020 Sivakumar Gómez Rituxan Adverse Reaction Info Not Available Adverse Reaction Active 06/28/2020 Sivakumar Gómez Immunizations No Data Provided for This Section Results No Data Provided for This Section Pathology Reports No Data Provided for This Section Diagnostic Reports No Data Provided for This Section Consultation Notes No Data Provided for This Section Discharge Summaries No Data Provided for This Section History and Physicals No Data Provided for This Section Vital Signs Vital Sign Value Date Comments Source Weight 107.9 06/28/2020 Sivakumar Gómez Height 63 1 Sivakumar Gómez Temperature Oral (F) 98.0 F 06/28/2020 Sivakumar Gómez Heart Rate 67 06/28/2020 Sivakumar Gómez Diastolic (mm Hg) 76 06/28/2020 Sivakumar Gómez Systolic (mm Hg) 142 06/28/2020 Sivakumar Gómez Weight 111.2 05/03/2020 Sivakumar Gómez Height 63 0 05/03/2020 Sivakumar Gómez Temperature Oral (F) 97.9 F 05/03/2020 Sivakumar Gómez Heart Rate 64 05/03/2020 Sivakumar Gómez Diastolic (mm Hg) 71 05/03/2020 Sivakumar Gómez Systolic (mm Hg) 141 05/03/2020 Sivakumar Gómez Weight 110.4 03/31/2020 Sivakumar Gómez Height 63.0 03/31/2020 Sivakumar Gómez Temperature Oral (F) 97.3 F 03/31/2020 Sivkaumar Gómez Heart Rate 73 03/31/2020 Sivakumar Gómez Diastolic (mm Hg) 69 03/31/2020 Sivakumar Gómez Systolic (mm Hg) 134 03/31/2020 Sivakumar Gómez Heart Rate 80 02/03/2020 Sivakumar Gómez Diastolic (mm Hg) 60 02/03/2020 Sivakumar Gómez Systolic (mm Hg) 158 02/03/2020 Sivakumar Gómez Weight 106.7 08/25/2019 Sivakumar Gómez Height 63.5 08/25/2019 Sivakumar Gómez Temperature Oral (F) 97.0 F 08/25/2019 Sivakumar Gómez Heart Rate 64 08/25/2019 Sivakumar Gómez Diastolic (mm Hg) 52 08/25/2019 Sivakumar Gómez Systolic (mm Hg) 106 08/25/2019 Sivakumar Gómez Weight 109 07/28/2019 Sivakumar Gómez Height 64 1 09/27/2018 Sivakumar Gómez Temperature Oral (F) 100.2 F 07/28/2019 Sivakumar Gómez Heart Rate 88 07/28/2019 Sivakumar Gómez Diastolic (mm Hg) 68 07/28/2019 Sivakumar Gómez Systolic (mm Hg) 112 07/28/2019 Sivakumar Gómez Weight 110.4 07/21/2018 Sivakumar Gómez Height 64 1 Sivakumar Gómez Temperature Oral (F) 98.6 F 07/21/2018 Sivakumar Gómez Heart Rate 76 07/21/2018 Sivakumar Gómez Diastolic (mm Hg) 72 07/21/2018 Sivakumar Gómez Systolic (mm Hg) 116 07/21/2018 Sivakumar Gómez Weight 111.6 04/15/2018 Sivakumar Gómez Height 64 0 04/15/2018 Sivakumar Gómez Temperature Oral (F) 98.1 F 04/15/2018 Sivakuamr Gómez Heart Rate 78 04/15/2018 Sivakumar Gómez Diastolic (mm Hg) 72 04/15/2018 Sivakumar Gómez Systolic (mm Hg) 130 04/15/2018 Sivakumar Gómez Weight 112.4 12/18/2017 Sivakumar Gómez Height 64 0 12/18/2017 Sivakumar Gómez Temperature Oral (F) 97.2 F 12/18/2017 Sivakumar Gómez Heart Rate 80 12/18/2017 Sivakumar Gómez Diastolic (mm Hg) 72 12/18/2017 Sivakumar Gómez Systolic (mm Hg) 126 12/18/2017 Sivakumar Gómez Weight 112 10/03/2017 Sivakumar Gómez Height 64 0 10/03/2017 Sivakumar Gómze Temperature Oral (F) 98.7 F 10/03/2017 Sivakumar Gómez Heart Rate 108 10/03/2017 Sivakumar Gómez Diastolic (mm Hg) 80 10/03/2017 Sivakumar Gómez Systolic (mm Hg) 142 10/03/2017 Sivakumra Gómez Weight 111 09/20/2017 Sivakumar Gómez Height 64 1 Sivakumar Gómez Temperature Oral (F) 97.0 F 09/20/2017 Sivakumar Gómez Heart Rate 80 09/20/2017 Sivakumar Gómez Diastolic (mm Hg) 72 09/20/2017 Sivakumar Gómez Systolic (mm Hg) 146 09/20/2017 Sivakumar Gómez Weight 111 08/05/2017 Sivakumar Gómez Height 64 1 10/05/2016 Sivakumar Gómez Temperature Oral (F) 97.2 F 08/05/2017 Sivakumar Gómez Heart Rate 68 08/05/2017 Sivakumar Gómez Diastolic (mm Hg) 64 08/05/2017 Sivakumar Gómez Systolic (mm Hg) 132 08/05/2017 Sivakumar Gómez Weight 107 07/30/2017 Sivakumar Gómez Height 64 1 09/29/2016 Sivakumar Gómez Temperature Oral (F) 96.9 F 07/30/2017 Sivakumar Gómez Heart Rate 84 07/30/2017 Sivakumra Gómez Diastolic (mm Hg) 82 07/30/2017 Sivakumar Gómez Systolic (mm Hg) 135 07/30/2017 Sivakumar Gómez Weight 112.5 05/31/2017 Sivakumar Gómez Height 64 0 05/31/2017 Isvakumar Gómez Temperature Oral (F) 97.9 F 05/31/2017 Sivakumar Gómez Heart Rate 80 05/31/2017 Sivakumar Gómez Diastolic (mm Hg) 62 05/31/2017 Sivakumar Gómez Systolic (mm Hg) 124 05/31/2017 Sivakumar Gómez Weight 112 05/02/2017 Sivakumar Gómez Height 64 0 05/02/2017 Sivakumar Gómez Temperature Oral (F) 98.3 F 05/02/2017 Sivakumar Gómez Heart Rate 96 05/02/2017 Sivakumar Gómez Diastolic (mm Hg) 88 05/02/2017 Sivakumar Gómez Systolic (mm Hg) 130 05/02/2017 Sivakumar Gómez Weight 111.6 02/27/2017 Sivakumar Gómez Height 64 0 02/27/2017 Sivakumar Gómez Temperature Oral (F) 97.8 F 02/27/2017 Sivakumar Gómez Heart Rate 80 02/27/2017 Sivakumar Gómez Diastolic (mm Hg) 62 02/27/2017 Sivakumar Gómez Systolic (mm Hg) 128 02/27/2017 Sivakumar Gómez Weight 113.3 01/23/2017 Sivakumar Gómez Height 64 0 01/23/2017 Sivakumar Gómez Temperature Oral (F) 98.7 F 01/23/2017 Sivakumar Gómez Heart Rate 96 01/23/2017 Sivakumar Gómez Diastolic (mm Hg) 76 01/23/2017 Sivakumar Gómez Systolic (mm Hg) 132 01/23/2017 Sivakumar Gómez Weight 110.8 12/26/2016 Sivakumar Gómez Height 64 0 12/26/2016 Sivakumar Gómez Temperature Oral (F) 99.5 F 12/26/2016 Sivakumar Gómez Diastolic (mm Hg) 62 12/26/2016 Sivakumar Gómez Systolic (mm Hg) 120 12/26/2016 Sivakumar Gómez Weight 111 11/30/2016 Sivakumar Gómez Height 64 0 11/30/2016 Sivakumar Gómez Temperature Oral (F) 97.8 F 11/30/2016 Sivakumar Gómez Heart Rate 86 11/30/2016 Sivakumar Gómez Diastolic (mm Hg) 62 11/30/2016 Sivakumar Gómez Systolic (mm Hg) 98 11/30/2016 Sivakumar Gómez Weight 110.0 11/28/2016 Sivakumar Gómez Height 64 0 11/28/2016 Sivakumar Gómez Temperature Oral (F) 98.6 F 11/28/2016 Sivakumar Gómez Diastolic (mm Hg) 70 11/28/2016 Sivakumar Gómez Systolic (mm Hg) 122 11/28/2016 Sivakumar Gómez Weight 117 05/17/2016 Sivakumar Gómez Height 64 0 05/17/2016 Sivakumar Gómez Temperature Oral (F) 99.3 F 05/17/2016 Sivakumar Gómez Heart Rate 88 05/17/2016 Sivakumar Gómez Diastolic (mm Hg) 70 05/17/2016 Sivakumar Gmóez Systolic (mm Hg) 120 05/17/2016 Sivakumar Gómez Weight 111 02/06/2016 Sivakumar Gómez Height 64 0 02/06/2016 Sivakumar Gómez Temperature Oral (F) 98.6 F 02/06/2016 Sivakumar Gómez Heart Rate 80 02/06/2016 Sivakumar Gómez Diastolic (mm Hg) 72 02/06/2016 Sivakumar Gómez Systolic (mm Hg) 118 02/06/2016 Sivakumar Gómez Weight 114 10/31/2015 Sivakumar Gómez Height 64 0 10/31/2015 Sivakumar Gómez Temperature Oral (F) 98.6 F 10/31/2015 Sivakumar Gómez Heart Rate 96 10/31/2015 Sivakumar Gómez Diastolic (mm Hg) 60 10/31/2015 Sivakumar Gómez Systolic (mm Hg) 122 10/31/2015 Sivakumar Gómez Weight 116 09/26/2015 Sivakumar Gómez Height 64 0 09/26/2015 Sivakumar Gómez Temperature Oral (F) 98.2 F 09/26/2015 Sivakumar Gómez Heart Rate 79 09/26/2015 Sivakumar Gómez Diastolic (mm Hg) 70 09/26/2015 Sivakumar Gómez Systolic (mm Hg) 110 09/26/2015 Sivakumar Gómez Weight 115 07/27/2015 Sivakumar Gómez Height 64 1 09/26/2014 Sivakumar Gómez Temperature Oral (F) 97.9 F 07/27/2015 Sivakumar Gómez Heart Rate 88 07/27/2015 Sivakumar Gómez Diastolic (mm Hg) 60 07/27/2015 Sivakumar Gómez Systolic (mm Hg) 112 07/27/2015 Sivakumar Gómez Weight 120 03/14/2015 Sivakumar Gómez Height 64.5 03/14/2015 Sivakumar Gómez Temperature Oral (F) 97.7 F 03/14/2015 Sivakumar Gómez Heart Rate 95 03/14/2015 Sivakumar Gómez Diastolic (mm Hg) 72 03/14/2015 Sivakumar Gómez Systolic (mm Hg) 127 03/14/2015 Sivakumar Gómez Weight 128 10/08/2014 Sivakumar Gómez Height 64 0 10/08/2014 Sivakumar Gómez Temperature Oral (F) 98.3 F 10/08/2014 Sivakumar Gómez Heart Rate 84 10/08/2014 Sivakumar Gómez Diastolic (mm Hg) 78 10/08/2014 Sivakumar Gómez Systolic (mm Hg) 138 10/08/2014 Sivakumar Gómez Weight 127 09/08/2014 Sivakumar Gómez Height 64.5 09/08/2014 Sivakumar Gómez Temperature Oral (F) 97.4 F 09/08/2014 Sivakumar Gómez Heart Rate 92 09/08/2014 Sivakumar Gómez Diastolic (mm Hg) 90 09/08/2014 Sivakumar Gómez Systolic (mm Hg) 132 09/08/2014 Sivakumar Gómez Weight 129 03/03/2014 Sivakumar Gómez Height 65 0 03/03/2014 Sivakumar Gómez Temperature Oral (F) 97.1 F 03/03/2014 Sivakumar Gómez Heart Rate 84 03/03/2014 Sivakumar Gómez Diastolic (mm Hg) 62 03/03/2014 Sivakumar Gómez Systolic (mm Hg) 114 03/03/2014 Sivakumar Gómez Weight 127 02/02/2014 Sivakumar Gómez Height 65 0 02/02/2014 Sivakumar Gómez Temperature Oral (F) 98.4 F 02/02/2014 Sivakumar Gómez Heart Rate 80 02/02/2014 Sivakumar Gómez Diastolic (mm Hg) 72 02/02/2014 Sviakumar Gómez Systolic (mm Hg) 118 02/02/2014 Sivakumar Gómez Weight 130 01/01/2014 Sivakumar Gómez Height 65 0 01/01/2014 Sivakumar Gómez Temperature Oral (F) 97.5 F 01/01/2014 Sivakumar Gómez Heart Rate 72 01/01/2014 Sivakumar Gómez Diastolic (mm Hg) 82 01/01/2014 Sivakumar Gómez Systolic (mm Hg) 152 01/01/2014 Sivakumar Gómez Weight 130 12/03/2013 Sivakumar Gómez Height 65 0 12/03/2013 Sivakumar Gómez Temperature Oral (F) 97.3 F 12/03/2013 Sivakumar Gómez Heart Rate 84 12/03/2013 Sivakumar Gómez Diastolic (mm Hg) 70 12/03/2013 Sivakumar Gómez Systolic (mm Hg) 124 12/03/2013 Sivakumar Gómez Encounters Location Location Details Encounter Type Encounter Number Reason For Visit Attending Provider ADM Date DC Date Status Source MD Andie Raymondien Clarification [id number] 01/02/20 14 01/01/2014 MD Andie Perezien Clarification [id number] 01/02/20 14 01/01/2014 MD Andie Perezien Clarification [id number] 01/02/20 14 01/01/2014 MD Andie Perezien Clarification [id number] 01/02/20 14 01/01/2014 Sivakumar Gómez MD Ambien Clarification [id number]-[id number] 01/02/20 14 01/01/2014 Sivakumar Gómez MD Ambien Clarification [id number] 01/02/20 14 01/01/2014 MD Andie Perezien Clarification [id number]-h5kfgq36g5j8 01/02/20 14 01/01/2014 Sivakumar Gómez MD Ambien Clarification [id number] 01/02/20 14 01/01/2014 Sivakumar Gómez MD Ambien Clarification [id number] 01/02/20 14 01/01/2014 Sivakumar Gómez MD Ambien Clarification [id number]-a823-93gr203twc9f 01/02/20 14 01/01/2014 Sivakumar Gómez MD Ambien Clarification [id number]-[id number] 01/02/20 14 01/01/2014 Sivakumar Gómez MD Ambien Clarification [id number]-yy13-h85dgjf10656 01/02/20 14 01/01/2014 Sivakumar Gómez MD Ambien Clarification [id number] 01/02/20 14 01/01/2014 Sivakumar Gómez MD Ambien Clarification [id number]-p1t2p579k4y1 01/02/20 14 01/01/2014 MD Andie Perezien Clarification [id number]-5mj3-2ys4-pt4g1b1qyj8o 01/02/20 14 01/01/2014 MD Andie Perezien Clarification [id number]-870p-x3n9-6081c0808767 01/02/20 14 01/01/2014 MD Andie Perezien Clarification [id number]-4180-yr94-94a176780iai 01/02/20 14 01/01/2014 MD Andie Perezien Clarification [id number]-mee6-2vr9-yd77-0l9kx851w33m 01/02/20 14 01/01/2014 MD Andie Perezien Clarification [id number]b6j 01/02/20 14 01/01/2014 MD Andie Perezien Clarification [id number]-963t-m26b-198o887eb9i1 01/02/20 14 01/01/2014 MD Andie Perezien Clarification [id number]-s0j0-63g5hkl07099 01/02/20 14 01/01/2014 MD Andie Perezien Clarification [id number]-7172-s2qi4422b364 01/02/20 14 01/01/2014 MD Andie Perezien Clarification 82m31r40-0fqk-5ea6-p370-f76w2nyy1090 01/02/20 14 01/01/2014 MD Andie Perezien Clarification [id number] 01/02/20 14 01/01/2014 Sivakumar Gómez MD Ambien Clarification 3957s97u-6e3q-8s87-0f99-fz379ghmv5e2 01/02/20 14 01/01/2014 MD Andie Perezien Clarification [id number]-[id number] 01/02/20 14 01/01/2014 MD Andie Perezien Clarification [id number]-ur4u-t4a0617g9009 01/02/20 14 01/01/2014 MD nAdie Perezien Clarification [id number]-hfy6-90w5-9178-82bq76oq4w6p 01/02/20 14 01/01/2014 MD Andie Perezien Clarification q2aj9yr1-8r0c-1ny9-6w6s-y988448ij228 01/02/20 14 01/01/2014 Sivakumar Gómez MD Ambien Clarification [id number]-r66d-[id number] 01/02/20 14 01/01/2014 MD Andie Perezien Clarification 2vf1o963-xy9f-785o-298l-20h1503587k2 01/02/20 14 01/01/2014 Sivakumar Gómez MD Ambien Clarification 4pznngq7-o50g-78f5-5r62-e2fkv7s764k5 01/02/20 14 01/01/2014 Sivakumar Gómez MD Ambien Clarification 54skge99-5wc9-79r5-yy73-824a7883mn0i 01/02/20 14 01/01/2014 MD Andie Perezien Clarification [id number]-628u-2639-154vsh2h3x57 01/02/20 14 01/01/2014 Sivakumar Gómez MD Ambien Clarification [id number]-1eo1-15i8-1r2tyzm49947 01/02/20 14 01/01/2014 MD Andie Perezien Clarification [id number]-s883-0q6q372501x8 01/02/20 14 01/01/2014 MD Andie Perezien Clarification [id number]-2xa3-34ya-4ice-8y6xgin3i187 01/02/20 14 01/01/2014 MD Andie Perezien Clarification 1v67n55y-f23p-6165-6a6v-k66a62l325hq 01/02/20 14 01/01/2014 MD Andie Perezien Clarification [id number]-u8jm-e923qj3789i0 01/02/20 14 01/01/2014 MD Andie Perezien Clarification [id number]-h697-794e-6t3k-761837fwlg41 01/02/20 14 01/01/2014 MD Andie Perezien Clarification 1eu266rb-pz59-8z74-qcrj-017w6w092f8t 01/02/20 14 01/01/2014 MD Andie Perezien Clarification i1608d5f-00iv-5nb7-x054-9ut3s11em86v 01/02/20 14 01/01/2014 MD Andie Perezien Clarification 2490m173-vzhw-08d4-7661-m9ozp8z910ym 01/02/20 14 01/01/2014 Sivakumar Gómez MD discuss treatment [id number]-8076-62fy-tp748902emn9 01/02/20 14 01/01/2014 Sivakumar Gómez MD discuss treatment 0a45y986-4jb4-5862-n8k5-vo598cl90o1m 01/02/20 14 01/01/2014 Sivakumar Gómez MD discuss treatment p7050h43-8m4j-4623-exmn-30mq6p345241 01/02/20 14 01/01/2014 Sivakumar Gómez MD discuss treatment 77j1j0d5-4l1n-5o83-0903-78vn43x02w92 01/02/20 14 01/01/2014 Sivakumar Gómez MD discuss treatment 5332msw9-pr79-647q-r697-3p0x4968bqzp 01/02/20 14 01/01/2014 Sivakumar Gómez MD discuss treatment g90we351-68mp-48q4-82x5-1a4157927g30 01/02/20 14 01/01/2014 Sivakumar Gómez MD discuss treatment a946rwyv-lah8-3j1z-gn86-z44jy5793gqt 01/02/20 14 01/01/2014 Sivakumar Gómez MD discuss treatment 7oke02n0-8wt0-0x1o-qy5w-a1i488y03xk0 01/02/20 14 01/01/2014 Sivakumar Gómez MD discuss treatment yt04j904-3e34-2w46-z74m-64989516o8o5 01/02/20 14 01/01/2014 Sivakumar Gómez MD discuss treatment kq72e834-eu44-5n78-2748-qu286nm17p69 01/02/20 14 01/01/2014 Sivakumar Gómez MD discuss treatment dh15o32j-2d9d-9bc1-t12x-1857yl10g49j 01/02/20 14 01/01/2014 Sivakumar Gómez MD discuss treatment 14n9t640-cyh1-1k03-uc11-wk2ibyx2bs07 01/02/20 14 01/01/2014 Sivakumar Gómez MD discuss treatment 9a500g6d-x6wi-0o6z-ai15-278n5z58p727 01/02/20 14 01/01/2014 Sivakumar Gómez MD discuss treatment 64sp1gv7-5xd9-7370-70jq-v3704a664425 01/02/20 14 01/01/2014 Sivakumar Gómez MD discuss treatment t9s36db8-k715-8515-a8ci-6y3i7q702t83 01/02/20 14 01/01/2014 Sivakumar Gómez MD discuss treatment 9am601y6-2918-3s69-81z4-dcj1243oq07t 01/02/20 14 01/01/2014 Sivakumar Gómez MD discuss treatment 7c32v7g7-6c5n-2z14-u8p5-u8xje93k7823 01/02/20 14 01/01/2014 Sivakumar Gómez MD discuss treatment 59340c70-45pp-76h0-0373-7a509t2v612f 01/02/20 14 01/01/2014 Sivakumar Gómez MD discuss treatment o34q9885-9w20-9580-gv0q-zwx93b50407m 01/02/20 14 01/01/2014 Sivakumar Gómez MD discuss treatment 497097l3-h277-1340-0v45-98td1av3ju32 01/02/20 14 01/01/2014 Sivakumar Gómez MD discuss treatment 91369054-0sg5-945c-8b20-p52z98z6kl3m 01/02/20 14 01/01/2014 Sivakumar Gómez MD discuss treatment 8968fo8b-28he-7237-0184-m1w00326689b 01/02/20 14 01/01/2014 Sivakumar Gómez MD discuss treatment 0x94409m-n312-46p4-pwtt-y796cu5ohj35 01/02/20 14 01/01/2014 Sivakumar Gómez MD discuss treatment md40u257-6223-7c70-0j2p-mx86643w847a 01/02/20 14 01/01/2014 Sivakumar Gómez MD discuss treatment 19efub32-4s5g-7j14-8452-9tc8f43hi626 01/02/20 14 01/01/2014 Sivakumar Gómez MD discuss treatment 86057928-9443-6v2q-022p-813k4r32vefs 01/02/20 14 01/01/2014 Sivakumar Gómez MD discuss treatment l0713as4-ma5p-71x8-j67x-67c79a34pfs1 01/02/20 14 01/01/2014 Sivakumar Gómez MD discuss treatment 28444u4x-i5e4-02u4-87f0-j01r8y3he2p8 01/02/20 14 01/01/2014 Sivakumar Gómez MD discuss treatment c667hxyq-c2d6-39u5-g70o-63ou8hd6669y 01/02/20 14 01/01/2014 Sivakumar Gómez MD discuss treatment e9r9v875-627b-6g95-61b5-lx07f58544f6 01/02/20 14 01/01/2014 Sivakumar Gómez MD discuss treatment 6w0z5097-1s8x-12d2-8c10-ci2237852133 01/02/20 14 01/01/2014 Sivakumar Gómez MD discuss treatment 42d44b19-0790-63n1-m214-14001f502043 01/02/20 14 01/01/2014 Sivakumar Gómez MD discuss treatment 46hn4qw9-ju54-04mx-6c59-41z8056a476i 01/02/20 14 01/01/2014 Sivakumar Gómez MD discuss treatment 95qf07n6-vkf1-0fp3-ak45-4z87j0l94vxl 01/02/20 14 01/01/2014 Sivakumar Gómez MD discuss treatment t772179y-v188-4267-0tx3-79n686169e6r 01/02/20 14 01/01/2014 Sivakumar Gómez MD discuss treatment 11j36g48-7709-225k-w1qi-zw4p5ow42q9n 01/02/20 14 01/01/2014 Sivakumar Gómez MD discuss treatment r3gn9529-311t-161u-lrr3-672v5sbd5rhs 01/02/20 14 01/01/2014 Sivakumar Gómez MD discuss treatment 7tk18133-z13n-14b9-l1z8-538o9q9410z9 01/02/20 14 01/01/2014 Sivakumar Gómez MD discuss treatment 85ud7v54-52og-4241-363l-123wi96oc0wq 01/02/20 14 01/01/2014 Sivakumar Gómez MD rituxan denied 16456vf8-34ho-4992-p0l6-8227800f8452 01/05/20 14 01/04/2014 Sivakumar Gómez MD rituxan denied 8fxma577-419i-0si8-1f2q-92159m5715c7 01/05/20 14 01/04/2014 Sivakumar Gómez MD rituxan denied 5390i269-yp44-1e03-07o8-b6515b677l5a 01/05/20 14 01/04/2014 Sivakumar Gómez MD rituxan denied 6734014b-4hhu-82h1-v90b-74c437guj1nz 01/05/20 14 01/04/2014 Sivakumar Gómez MD rituxan denied z3az91pp-4tu9-91k0-zp93-e77z6s38e935 01/05/20 14 01/04/2014 MD simone ePrezxan denied 0q0042t5-6l78-5f01-z83l-p47s8h105294 01/05/20 14 01/04/2014 MD simone Perezxan denied 055vf97r-z241-7226-4o89-2d959rbf1338 01/05/20 14 01/04/2014 Sivakumar Gómez MD rituxan denied 7y6j6511-t9ri-6655-18xi-gpy07640w5w6 01/05/20 14 01/04/2014 MD simone Perezxan denied 8238897t-12ks-3384-qub2-4t94s50oo009 01/05/20 14 01/04/2014 Sivakumar Gómez MD rituxan denied bv3ye8d5-3m57-11v3-ovr0-w9zf0b6cxf98 01/05/20 14 01/04/2014 Sivakumar Gómez MD rituxan denied 10fr9758-9161-8bi7-v115-9q1k9wc36056 01/05/20 14 01/04/2014 Sivakumar Gómez MD rituxan denied i77y2o2w-6l08-35wm-x526-890js163888c 01/05/20 14 01/04/2014 Sivakumar Gómez MD rituxan denied 73358obn-s95a-04e9-h528-4040j30b834b 01/05/20 14 01/04/2014 MD simone Perezxan denied 87214n63-8502-72f0-uk96-k470rcx97y1h 01/05/20 14 01/04/2014 Sivakumar Gómez MD rituxan denied 88760286-6rfg-647m-68xg-7o5g5ya2k444 01/05/20 14 01/04/2014 Sivakumar Gómez MD rituxan denied p8p3x94s-eh05-7cma-2a78-10psq846461a 01/05/20 14 01/04/2014 MD simone Perezxan denied edh8306d-5154-41a0-4733-1302f134027s 01/05/20 14 01/04/2014 MD simone Perezxan denied pkn9h65u-0480-1568-8r0t-0yi3h289o026 01/05/20 14 01/04/2014 MD simone Perezxan denied 39i53417-4cj1-9ly6-5015-s8t96j28cfhb 01/05/20 14 01/04/2014 MD simone Perezxan denied 53770m72-68q1-6p83-fls4-95qv38s903f5 01/05/20 14 01/04/2014 Sivakumar Gómez MD rituxan denied 9533x4zc-g16r-955z-ax3t-54582533s8ms 01/05/20 14 01/04/2014 MD simone Perezxan denied nbh26rya-ca0e-0409-a5l9-mg3p66562354 01/05/20 14 01/04/2014 Sivakumar Gómez MD rituxan denied t6240608-j6j6-0p73-4gl0-6811z234k575 01/05/20 14 01/04/2014 MD simone Perezxan denied 71m35821-iq4c-94yv-6501-8g3o367fi4if 01/05/20 14 01/04/2014 MD simone Perezxan denied 64f779ra-9v87-708l-2o88-9e2m50419938 01/05/20 14 01/04/2014 Sivakumar Gómez MD rituxaarpan denied m008l36p-1uz3-1257-w606-2wz81m3n729x 01/05/20 14 01/04/2014 MD simone Perezxaarpan denied rzi32jh7-87y6-4wcr-m6ow-371bhe3j2291 01/05/20 14 01/04/2014 MD simone Perzexan denied o0070948-i152-5780-90en-5r76op75c70p 01/05/20 14 01/04/2014 MD simone Perezxan denied r2x0f6y3-vqqj-586c-v185-g1q00ke3f220 01/05/20 14 01/04/2014 MD simone Perezxan denied t961038d-38b2-92z0-45pm-3f48l453612n 01/05/20 14 01/04/2014 MD simone Perezxan denied 1684e2b8-2941-9100-rb85-kp3ts686gx8d 01/05/20 14 01/04/2014 MD simone Perezxaarpan denied 72761dq1-bc7e-812g-55r1-50594012s537 01/05/20 14 01/04/2014 Sivakumar Gómez MD rituxaarpan denied t082h811-n062-7r1h-k1h5-27uikuwwhr85 01/05/20 14 01/04/2014 Sivakumar Gómez MD rituxaarpan denied ay664v89-y318-1g9c-j8ms-0h817wsm7843 01/05/20 14 01/04/2014 MD simone Perezxaarpan denied 347s875v-4159-6d0p-7944-93y4n456m1o8 01/05/20 14 01/04/2014 MD simone Perezxan denied ix126q96-0422-005b-3q2n-a3gv19m89h9f 01/05/20 14 01/04/2014 Sivakumar Gómez MD rituxan denied 2936zw24-sth0-6i96-6t51-46r740z95y5r 01/05/20 14 01/04/2014 Sivakumar Gómez MD rituxan denied 85ym3c40-5i02-77wy-9056-uu36l1h0421v 01/05/20 14 01/04/2014 Sivakumar Gómez MD rituxan denied 2j183m93-331c-7079-045s-7r137fylx497 01/05/20 14 01/04/2014 Sivakumar Gómez MD rituxan denied uw5d7w0l-8c44-04ls-j519-s09179v534e7 01/05/20 14 01/04/2014 Sivakumar Gómez MD rituxan denied fdve1iu1-1n3c-568d-d1o9-8099s126y3l4 01/05/20 14 01/04/2014 Sivakumar Gómez MD rituxan denied 27phi798-4rg0-5k5d-a3il-h99298w4b963 01/05/20 14 01/04/2014 Sivakumar Gómez MD VIt D orders and Boniva 661gn0oy-3x80-1900-321p-e0q8gy969vvq 01/19/2014 01/19/2014 Sivakumar Gómez MD VIt D orders and Boniva 671vj1ow-o10m-47a4-5j35-u8a17aa9uov7 01/19/2014 01/19/2014 Sivakumar Gómez MD VIt D orders and Boniva 769vo174-9387-9a98-49e6-3kq66j2y5c26 01/19/2014 01/19/2014 Sivakumar Gómez MD VIt D orders and Boniva 70pcj15f-fvc3-9g75-7404-1oe68666mo60 01/19/2014 01/19/2014 Sivakumar Gómez MD VIt D orders and Boniva 389679b1-vx07-6029-y816-4q529282e6h5 01/19/2014 01/19/2014 Sivakumar Gómez MD VIt D orders and Boniva z793899a-60c6-5r26-s90e-31p0b442012o 01/19/2014 01/19/2014 Sivakumar Gómez MD VIt D orders and Boniva 456027lc-w5t1-87xd-3z8i-8683uu5d352j 01/19/2014 01/19/2014 Sivakumar Gómez MD VIt D orders and Boniva w0s069ru-e486-9l9v-8p01-85j6521i172v 01/19/2014 01/19/2014 Sivakumar Gómez MD VIt D orders and Boniva 235r5i67-4w30-0y97-52hx-b7m475wx16f0 01/19/2014 01/19/2014 Sivakumar Gómez MD VIt D orders and Boniva 1vy78076-569b-0b38-407k-yp82600311oe 01/19/2014 01/19/2014 Sivakumar Gómez MD VIt D orders and Boniva 2859ce34-ow02-4r40-16r2-37372cd773jq 01/19/2014 01/19/2014 Sivakumar Gómez MD VIt D orders and Boniva 5p04sp4a-0129-623a-9740-910m567c4s61 01/19/2014 01/19/2014 Sivakumar Gómez MD VIt D orders and Boniva 556x9i4j-c596-2799-5icb-6an8w7o1es43 01/19/2014 01/19/2014 Sivakumar Gómez MD VIt D orders and Boniva g8d7jdm0-26gx-8851-hk40-2o3p35hn7064 01/19/2014 01/19/2014 Sivakumar Gómez MD VIt D orders and Boniva hq843sp9-63mm-3vef-82q0-n722z404r881 01/19/2014 01/19/2014 Sivakumar Gómez MD VIt D orders and Boniva 4uo9e5i1-2q20-2788-nm47-xr8jh3b1452t 01/19/2014 01/19/2014 Sivakumar Gómez MD VIt D orders and Boniva 5h1l3o3g-9jex-4z2h-3001-f6d6d92b3s93 01/19/2014 01/19/2014 iSvakumar Gómez MD VIt D orders and Boniva 9a0384ls-66z1-8h1b-f53f-659b2576n5wf 01/19/2014 01/19/2014 Sivakumar Gómez MD VIt D orders and Boniva 4077m335-4221-5675-og65-38q7w1y61z45 01/19/2014 01/19/2014 Sivakumar Gómez MD VIt D orders and Boniva 6n79h176-vb67-8q5g-j27g-0k89h1669443 01/19/2014 01/19/2014 Sivakumar Gómez MD VIt D orders and Boniva no9j1615-9d70-8h44-g054-z277ztswx732 01/19/2014 01/19/2014 Sivakumar Gómez MD VIt D orders and Boniva 0h4p4zu6-zo32-532t-er16-m2fwwdj1022e 01/19/2014 01/19/2014 Sivakumar Gómez MD VIt D orders and Boniva gs9qb984-e5aa-2132-pn21-7351003zp9tr 01/19/2014 01/19/2014 Sivakumar Gómez MD VIt D orders and Boniva bguy87xe-93gh-1u48-h055-f57895063513 01/19/2014 01/19/2014 Sivakumar Gómez MD VIt D orders and Boniva 03ma619s-yq6n-3k53-b038-7726x5rex39w 01/19/2014 01/19/2014 Sivakumar Gómez MD VIt D orders and Boniva 146u57pn-pzw3-0305-3f56-321loq1i9754 01/19/2014 01/19/2014 Sivakumar Gómez MD VIt D orders and Boniva 689s47qg-c8og-945c-78z5-4mk2sucplc8c 01/19/2014 01/19/2014 Sivakumar Gómez MD VIt D orders and Boniva 2sd1r4x2-868x-25n9-24f5-42w2v1w0245b 01/19/2014 01/19/2014 Sivakumar Gómez MD VIt D orders and Boniva hx88pufq-1682-5wx1-632g-3777448360du 01/19/2014 01/19/2014 Sivakumar Gómez MD VIt D orders and Boniva g2lio703-lj7v-7420-1k61-y130888h9528 01/19/2014 01/19/2014 Sivakumar Gómez MD VIt D orders and Boniva 079k1u37-3s6p-36z5-8pap-0740kou2g451 01/19/2014 01/19/2014 Sivakumar Gómez MD VIt D orders and Boniva lyf124f6-h5gv-803z-4p77-k296237lyk26 01/19/2014 01/19/2014 Sivakumar Gómez MD VIt D orders and Boniva xcj26d03-560w-6sc5-85f5-k446r4o9o794 01/19/2014 01/19/2014 Sivakumar Gómez MD VIt D orders and Boniva 3095ikn1-a7x5-9l23-50f3-6xx86ue5n024 01/19/2014 01/19/2014 Sivakumar Gómez MD VIt D orders and Boniva 3v910r6e-5275-1m64-1x4c-9j1i28f15s36 01/19/2014 01/19/2014 Sivakumar Gómez MD VIt D orders and Boniva 9141972p-o717-4xq1-8911-56955944m8nq 01/19/2014 01/19/2014 Sivakumar Gómez MD VIt D orders and Boniva 766z26d5-3714-249t-5092-v6592g9n736b 01/19/2014 01/19/2014 Sivakumar Gómez MD VIt D orders and Boniva o0481419-9ila-56s8-2654-z92842crj45s 01/19/2014 01/19/2014 Sivakumar Gómez MD VIt D orders and Boniva 145w5370-96t6-3u61-m4y7-00892ftu9bb5 01/19/2014 01/19/2014 Sivakumar Gómez MD VIt D orders and Boniva 82l489tj-d607-8f81-d541-[id number] 01/19/2014 01/19/2014 Sivakumar Gómez MD VIt D orders and Boniva [id number] 01/19/2014 01/19/2014 Sivakumar Gmóez MD fentanyl patch/synovial fluid [id number] 01/25/2014 01/25/2014 Sivakumar Gómez MD fentanyl patch/synovial fluid [id number] 01/25/2014 01/25/2014 Sivakmuar Gómez MD fentanyl patch/synovial fluid [id number]-[id number] 01/25/2014 01/25/2014 Sivakumar Gómez MD fentanyl patch/synovial fluid [id number] 01/25/2014 01/25/2014 Sivakumar Gómez MD fentanyl patch/synovial fluid [id number] 01/25/2014 01/25/2014 Sivakumar Gómez MD fentanyl patch/synovial fluid [id number] 01/25/2014 01/25/2014 Sivakumar Gómez MD fentanyl patch/synovial fluid [id number]-[id number]-i3wb0sk9l93m 01/25/2014 01/25/2014 Sivakumar Gómez MD fentanyl patch/synovial fluid [id number]-[id number] 01/25/2014 01/25/2014 Sivakumar Gómez MD fentanyl patch/synovial fluid [id number]-770p-1s21-tg7j-22069xk21bsr 01/25/2014 01/25/2014 Sivakumar Gómez MD fentanyl patch/synovial fluid [id number] 01/25/2014 01/25/2014 Sivakumar Gómez MD fentanyl patch/synovial fluid 63vy924j-m52x-1i59-dw79-0y9k107g9t94 01/25/2014 01/25/2014 Sivakumar Gómez MD fentanyl patch/synovial fluid [id number] 01/25/2014 01/25/2014 Sivakumar Gómez MD fentanyl patch/synovial fluid [id number] 01/25/2014 01/25/2014 Sivakumar Gómez MD fentanyl patch/synovial fluid [id number] 01/25/2014 01/25/2014 Sivakumar Gómez MD fentanyl patch/synovial fluid [id number] 01/25/2014 01/25/2014 Sivakumar Gómez MD fentanyl patch/synovial fluid [id number]-[id number] 01/25/2014 01/25/2014 Sivakumar Gómez MD fentanyl patch/synovial fluid [id number] 01/25/2014 01/25/2014 Sivakumar Gómez MD fentanyl patch/synovial fluid [id number] 01/25/2014 01/25/2014 Sivakumar Gómez MD fentanyl patch/synovial fluid [id number] 01/25/2014 01/25/2014 Sivakumar Gómez MD fentanyl patch/synovial fluid [id number]-lr8cbs33d8xw 01/25/2014 01/25/2014 Sivakumar Gómez MD fentanyl patch/synovial fluid [id number]-h7t3-eb8pb21oqj89 01/25/2014 01/25/2014 Sivakumar Gómez MD fentanyl patch/synovial fluid 243g6964-m2ik-471f-d846-hj5iihbqp39v 01/25/2014 01/25/2014 Sivakumar Gómez MD fentanyl patch/synovial fluid [id number]-[id number] 01/25/2014 01/25/2014 Sivakumar Gómez MD fentanyl patch/synovial fluid [id number] 01/25/2014 01/25/2014 Sivakumar Gómez MD fentanyl patch/synovial fluid [id number] 01/25/2014 01/25/2014 Sivakumar Gómez MD fentanyl patch/synovial fluid [id number] 01/25/2014 01/25/2014 Sivakumar Gómez MD fentanyl patch/synovial fluid [id number]-[id number] 01/25/2014 01/25/2014 Sivakumar Gómez MD fentanyl patch/synovial fluid [id number] 01/25/2014 01/25/2014 Sivakumar Gómez MD fentanyl patch/synovial fluid [id number]-[id number] 01/25/2014 01/25/2014 Sivakumar Gómez MD fentanyl patch/synovial fluid [id number]-[id number] 01/25/2014 01/25/2014 Sivakumar Gómez MD fentanyl patch/synovial fluid [id number]-b00u-[id number]-[id number] 01/25/2014 01/25/2014 Sivakumar Gómez MD fentanyl patch/synovial fluid [id number] 01/25/2014 01/25/2014 Sivakumar Gómez MD fentanyl patch/synovial fluid [id number]-[id number] 01/25/2014 01/25/2014 Sivakumar Gómez MD fentanyl patch/synovial fluid [id number] 01/25/2014 01/25/2014 Sivakumar Gómez MD fentanyl patch/synovial fluid [id number] 01/25/2014 01/25/2014 Sivakumar Gómez MD fentanyl patch/synovial fluid [id number] 01/25/2014 01/25/2014 Sivakumar Gómez MD fentanyl patch/synovial fluid [id number] 01/25/2014 01/25/2014 Sivakumar Gómez MD fentanyl patch/synovial fluid [id number] 01/25/2014 01/25/2014 Sivakumar Gómez MD fentanyl patch/synovial fluid [id number] 01/25/2014 01/25/2014 Sivakumar Gómez MD fentanyl patch/synovial fluid [id number]-[id number] 01/25/2014 01/25/2014 Sivakumar Gómez MD synovial fluid leaking from left elbow [id number] 02/02/2014 02/02/2014 Sivakumar Gómez MD synovial fluid leaking from left elbow [id number] 02/02/2014 02/02/2014 Sivakumar Gómez MD synovial fluid leaking from left elbow 9fp50h7e-w4qn-0e8y-rq3p-1k68d968x0f6 02/02/2014 02/02/2014 Sivakumar Gómez MD synovial fluid leaking from left elbow [id number]-mz2h2ic7tp7t 02/02/2014 02/02/2014 Sivakumar Gómez MD synovial fluid leaking from left elbow [id number] 02/02/2014 02/02/2014 Sivakumar Gómez MD synovial fluid leaking from left elbow [id number] 02/02/2014 02/02/2014 Sivakumar Gómez MD synovial fluid leaking from left elbow 40g0e9te-407i-773g-6971-40ws867oaf8e 02/02/2014 02/02/2014 Sivakumar Gómez MD synovial fluid leaking from left elbow [id number] 02/02/2014 02/02/2014 Sivakumar Gómez MD synovial fluid leaking from left elbow [id number]-r4ux-[id number] 02/02/2014 02/02/2014 Sivakumar Gómez MD synovial fluid leaking from left elbow [id number]-cvz69x04c0cy 02/02/2014 02/02/2014 Sivakumar Gómez MD synovial fluid leaking from left elbow [id number] 02/02/2014 02/02/2014 Sivakumar Gómez MD synovial fluid leaking from left elbow [id number]-9ytn-575w-0j47-84x138sx56f7 02/02/2014 02/02/2014 Sivakumar Gómez MD synovial fluid leaking from left elbow [id number] 02/02/2014 02/02/2014 Sivakumar Gómez MD synovial fluid leaking from left elbow [id number]-hrb6n72625u6 02/02/2014 02/02/2014 Sivakumar Gómez MD synovial fluid leaking from left elbow [id number] 02/02/2014 02/02/2014 Sivakumar Gómez MD synovial fluid leaking from left elbow [id number]-mcng-j22s3d6bwj24 02/02/2014 02/02/2014 Sivakumar Gómez MD synovial fluid leaking from left elbow [id number] 02/02/2014 02/02/2014 Sivakumar Gómez MD synovial fluid leaking from left elbow [id number] 02/02/2014 02/02/2014 Sivakumar Gómez MD synovial fluid leaking from left elbow [id number] 02/02/2014 02/02/2014 Sivakumar Gómez MD synovial fluid leaking from left elbow [id number] 02/02/2014 02/02/2014 Sivakumar Gómez MD synovial fluid leaking from left elbow [id number] 02/02/2014 02/02/2014 Sivakumar Gómez MD synovial fluid leaking from left elbow [id number]-[id number] 02/02/2014 02/02/2014 Sivakumar Gómez MD synovial fluid leaking from left elbow [id number]-[id number] 02/02/2014 02/02/2014 Sivakumar Gómez MD synovial fluid leaking from left elbow [id number] 02/02/2014 02/02/2014 Sivakumar Gómez MD synovial fluid leaking from left elbow [id number]-233y-1v901x69m6k1 02/02/2014 02/02/2014 Sivakumar Gómez MD synovial fluid leaking from left elbow z91642g7-70ex-4978-825c-103770vg00r2 02/02/2014 02/02/2014 Sivakumar Gómez MD synovial fluid leaking from left elbow zml6g93r-jc7t-0i6f-17bx-69o369o70agu 02/02/2014 02/02/2014 Sivakumar Gómez MD synovial fluid leaking from left elbow y2811772-fljf-4o13-4w00-s9856fjp63h7 02/02/2014 02/02/2014 Sivakumar Gómez MD synovial fluid leaking from left elbow kc4ox399-2004-5j04-2w65-pe51485w205d 02/02/2014 02/02/2014 Sivakumar Gómez MD synovial fluid leaking from left elbow ssj81qi4-om1m-1r68-318m-6o04xq9v8nw9 02/02/2014 02/02/2014 Sivakumar Gómez MD synovial fluid leaking from left elbow 33h4ssw7-0vjo-3504-pd92-0334a29b8j62 02/02/2014 02/02/2014 Sivakumar Gómez MD synovial fluid leaking from left elbow w8spo408-2xf5-2u62-32en-ur0nr4048s76 02/02/2014 02/02/2014 Sivakumar Gómez MD synovial fluid leaking from left elbow 340ldepm-549a-1e137o18-p3c6-x87p4m1442gh 02/02/2014 02/02/2014 Sivakumar Gómez MD synovial fluid leaking from left elbow 6ic1m39n-l567-036o-f0c7-128229x540a8 02/02/2014 02/02/2014 Sivakumar Gómez MD synovial fluid leaking from left elbow z1575537-32np-9kg9-z76h-e954317d7930 02/02/2014 02/02/2014 Sivakumar Gómez MD synovial fluid leaking from left elbow usb13720-7b11-7ni0-566y-zh3r80191t95 02/02/2014 02/02/2014 Sivakumar Gómez MD synovial fluid leaking from left elbow alq4m83d-zs17-6sm7-5dn8-3545y02170we 02/02/2014 02/02/2014 Sivakumar Gómez MD synovial fluid leaking from left elbow 0fft4v32-3711-98s7-9722-r017s47624r4 02/02/2014 02/02/2014 Sivakumar Gómez MD synovial fluid leaking from left elbow 22791341-3810-7581-3s22-b4469i72gg38 02/02/2014 02/02/2014 Sivakumar Gómez MD fentanyl patch u8rwpz99-k062-1428-q831-1463482a5148 02/27/20 14 02/26/2014 Sivakumar Gómez MD fentanyl patch nq0v448k-467g-17w1-yyz5-8h39h5580981 02/27/20 14 02/26/2014 Sivakumar Gómez MD fentanyl patch yh1ikc87-08l1-5yf0-n0da-04i380w0yv60 02/27/20 14 02/26/2014 Sivakumar Gómez MD fentanyl patch 8qfw76j8-01g4-499n-81v0-6u3975j4461u 02/27/20 14 02/26/2014 Sivakumar Gómez MD fentanyl patch 8nw7w13o-0c80-9907-g1k1-p627k3a7v885 02/27/20 14 02/26/2014 Sivakumar Gómez MD fentanyl patch 7312453d-8297-8377-r963-kz737h33c210 02/27/20 14 02/26/2014 Sivakumar Gómez MD fentanyl patch o367616m-k946-6l11-j5f9-z9g81v858u44 02/27/20 14 02/26/2014 Sivakumar Gómez MD fentanyl patch 1w1c569e-71r6-93b7-1827-3215l2xk47u5 02/27/20 14 02/26/2014 Sivakumar Gómez MD fentanyl patch 972sv776-0s2a-6sps-624n-16r5w4k8581w 02/27/20 14 02/26/2014 Sivakumar Gómez MD fentanyl patch 265y45mu-0v63-525h-a438-52j41w49x654 02/27/20 14 02/26/2014 Sivakumar Gómez MD fentanyl patch 31697976-02a2-9616-49hh-r416k4xdbr8s 02/27/20 14 02/26/2014 Sivakumar Gómez MD fentanyl patch y449216x-dt58-0e8y-f737-j7s7l7a12wy9 02/27/20 14 02/26/2014 Sivakumar Gómez MD fentanyl patch d77839he-g4x0-42z4-z439-1p493837vw18 02/27/20 14 02/26/2014 Sivakumar Gómez MD fentanyl patch 3sy8ldn7-826s-3451-c998-2992bz1xp43m 02/27/20 14 02/26/2014 Sivakumar Gómez MD fentanyl patch dfjosz2d-fktr-977q-8opj-j4r8g9e1ooy1 02/27/20 14 02/26/2014 Sivakumar Gómez MD fentanyl patch 42ld3n71-y6l8-73sn-m98k-6ukm73s3k963 02/27/20 14 02/26/2014 Sivakumar Gómez MD fentanyl patch 65861y3l-l733-257n-s180-0r475g93n4dd 02/27/20 14 02/26/2014 Sivakumar Gómez MD fentanyl patch 32jg6888-7f77-706j-49e2-74x02186l9z8 02/27/20 14 02/26/2014 Sivakumar Gómez MD fentanyl patch 89zd50az-rbm5-06w0-538f-807x2ra7u72i 02/27/20 14 02/26/2014 Sivakumar Gómez MD fentanyl patch ee011b93-9070-2487-fq13-1394r42a3982 02/27/20 14 02/26/2014 Sivakumar Gómez MD fentanyl patch d46004f4-2f66-15my-v654-287231y9x866 02/27/20 14 02/26/2014 Sivakumar Gómez MD fentanyl patch 33t92194-5k87-52v9-9f7h-of2214c20jl7 02/27/20 14 02/26/2014 Sivakumar Gómez MD fentanyl patch 06142028-o7hc-8234-67jv-966jad412h3l 02/27/20 14 02/26/2014 Sivakumar Gómez MD fentanyl patch v4k0snix-8u43-230d-hv67-5z8t8o3fj21u 02/27/20 14 02/26/2014 Sivakumar Gómez MD fentanyl patch sx3f2716-1fz0-3e25-68ow-unb5ts164273 02/27/20 14 02/26/2014 Sivakumar Gómez MD fentanyl patch v89s43t6-0142-81v4-hq91-65v8l69o1710 02/27/20 14 02/26/2014 Sivakumar Gómez MD fentanyl patch 6747442n-1n76-39pt-4u60-b12n134l5731 02/27/20 14 02/26/2014 Sivakumar Gómez MD fentanyl patch 8pb86g58-3306-8x7w-8av4-27lsu53hm804 02/27/20 14 02/26/2014 Sivakumar Gómez MD fentanyl patch bihk9454-3f95-9942-w52s-25ez5lh73r28 02/27/20 14 02/26/2014 Sivakumar Gómez MD fentanyl patch 3p4m05xk-1mfk-23l6-890o-7s6o8xf79344 02/27/20 14 02/26/2014 Sivakumar Gómez MD fentanyl patch rk29e95j-7fo7-07t8-9ls5-92s0pfo6c20q 02/27/20 14 02/26/2014 Sivakumar Gómez MD fentanyl patch 1187f0xp-e04f-3n1g-201j-1ls2bb6nk706 02/27/20 14 02/26/2014 Sivakumar Gómez MD fentanyl patch 9d37w475-946d-8mrj-b8ry-1060738j928l 02/27/20 14 02/26/2014 Sivakumar Gómez MD fentanyl patch 60s17h14-2436-7662-1237-j5099s4l0x14 02/27/20 14 02/26/2014 Sivakumar Gómez MD fentanyl patch 24893mi5-4q75-8297-06w8-407w2xql73bx 02/27/20 14 02/26/2014 Sivakumar Gómez MD fentanyl patch 925g6988-z84r-2568-m2u5-i5286301n386 02/27/20 14 02/26/2014 Sivakumar Gómez MD fentanyl patch 0zaxgm18-lx01-5zg1-2a58-e7276i534k9s 02/27/20 14 02/26/2014 Sivakumar Gómez MD fentanyl patch g96e1069-08q0-8c49-5850-jouv36505esw 02/27/20 14 02/26/2014 Sivakumar Gómez MD fentanyl patch 26942o12-u7k2-95vx-40g1-nv9pbq992if6 02/27/20 14 02/26/2014 Sivakumar Gómez MD 2 mth f/u 6763j06z-itdq-8n33-zl79-5x60m83j5uz7 03/03/20 14 03/03/2014 Sivakumar Gómez MD 2 mth f/u 870a9514-6u4r-655u-9i32-l2w02c312g81 03/03/20 14 03/03/2014 Sivakumar Gómez MD 2 mth f/u 29g9ksjv-p424-76r5-ka67-r0s097708d87 03/03/20 14 03/03/2014 Sivakumra Gómez MD 2 mth f/u oju033l9-g7cr-8628-kei1-1u30kjcb77hg 03/03/20 14 03/03/2014 Sivakumar Gómez MD 2 mth f/u 9hr61773-39kc-98dw-c423-94xh22235v24 03/03/20 14 03/03/2014 Sivakumar Gómez MD 2 mth f/u i36vl068-oyr6-55w4-rrl4-611xi37yt4x0 03/03/20 14 03/03/2014 Sivakumar Gómez MD 2 mth f/u ipa7nq0h-9m68-60h8-z471-y30w72r54104 03/03/20 14 03/03/2014 Sivakumar Gómez MD 2 mth f/u 1fb196ww-12z3-065f-76ad-936whf6v99ok 03/03/20 14 03/03/2014 Sivakumar Gómez MD 2 mth f/u 38h0io9c-20y5-937w-4hih-97or3l9b370p 03/03/20 14 03/03/2014 Sivakumar Gómez MD 2 mth f/u y62wx23r-6996-06t3-ipj3-m41998a400ju 03/03/20 14 03/03/2014 Sivakumar Gómez MD 2 mth f/u 491e83m5-6455-5496-521z-vag02wp27q4d 03/03/20 14 03/03/2014 Sivakumar Gómez MD 2 mth f/u 279m9z0g-80ma-5w5f-m0c6-a5qy289h6822 03/03/20 14 03/03/2014 Sivakumar Gómez MD 2 mth f/u 3u689v1c-6h61-03lk-0261-ylc882a08j6l 03/03/20 14 03/03/2014 Sivakumar Gómez MD 2 mth f/u sytsn044-n990-33oi-35g5-0x4vq935jedi 03/03/20 14 03/03/2014 Sivakumar Gómez MD 2 mth f/u s650anww-x7fb-0479-ar7t-h388718i95m3 03/03/20 14 03/03/2014 Sivakumar Gómez MD 2 mth f/u 3m23f034-ue8s-9616-612o-3d90h61kt3xe 03/03/20 14 03/03/2014 Sivakumar Gómez MD 2 mth f/u byz24d6h-0x3k-0y1i-9904-3jbz4s72v26x 03/03/20 14 03/03/2014 Sivakumar Gómez MD 2 mth f/u e84640y3-g735-3519-e623-q5x59m520z45 03/03/20 14 03/03/2014 Sivakumar Gómez MD 2 mth f/u 132av93r-4mt0-21a3-6i2c-m408g4f9ml8q 03/03/20 14 03/03/2014 Sivakumar Gómez MD 2 mth f/u 71wu8t74-29s2-8pcp-tp18-3780axo8419w 03/03/20 14 03/03/2014 Sivakumar Gómez MD 2 mth f/u 0aq790t4-j5l5-83f8-3cp0-9dn8lc2s0s89 03/03/20 14 03/03/2014 Sivakumar Gómez MD 2 mth f/u 11337sc2-c236-542p-62q5-5jj58o47qf00 03/03/20 14 03/03/2014 Sivakumar Gómez MD 2 mth f/u 1343ymh9-6983-3271-d7m5-95j07w3jnc20 03/03/20 14 03/03/2014 Sivakumar Gómez MD 2 mth f/u h02o6e17-e0q0-6th1-lan8-92r8799q45q7 03/03/20 14 03/03/2014 Sivakumar Gómez MD 2 mth f/u 5735i3wu-35p6-2657-0g3r-13e1h4i14107 03/03/20 14 03/03/2014 Sivakumar Gómez MD 2 mth f/u 23469xh3-4919-8jm7-cqz3-1551553mft1p 03/03/20 14 03/03/2014 Sivakumar Gómez MD 2 mth f/u 86724s8q-24v0-735i-i903-o060kv710992 03/03/20 14 03/03/2014 Sivakumar Gómez MD 2 mth f/u 2b09da96-get5-0h45-7p13-31skv9e7128s 03/03/20 14 03/03/2014 Sivakumar Gómez MD 2 mth f/u m30vwp24-vsmy-9664-l2e8-55p3lq10y273 03/03/20 14 03/03/2014 Sivakumar Gómez MD 2 mth f/u 431la9z8-b073-6531-01nw-6q17k6205vi1 03/03/20 14 03/03/2014 Sivakumar Gómez MD 2 mth f/u a3g72qry-020v-7o6m-tb33-285z2c73594p 03/03/20 14 03/03/2014 Sivakumar Gómez MD 2 mth f/u xfr97b64-8pt4-7mu5-uzi5-7q5m275kfrg1 03/03/20 14 03/03/2014 Sivakumar Gómez MD 2 mth f/u 085p80zr-s320-7xf5-4d5c-769a631k4840 03/03/20 14 03/03/2014 Sivakumar Gómez MD 2 mth f/u 19do01t1-h1u7-7bdx-ykx7-208rs758p286 03/03/20 14 03/03/2014 Sivakumar Gómez MD 2 mth f/u 2kt53zd4-8n95-489h-t191-63js068an622 03/03/20 14 03/03/2014 Sivakumar Gómez MD 2 mth f/u 62js1ab6-3492-172e-g461-i4095mqh1hb0 03/03/20 14 03/03/2014 Sivakumar Gómez MD 2 mth f/u p5c98e9c-85h1-15d2-ee83-62908557l9we 03/03/20 14 03/03/2014 Sivakumar Gómez MD 2 mth f/u 14427xve-e7xw-03j2-5nsb-fh24r7972q17 03/03/20 14 03/03/2014 Sivakumar Gómez MD 2 mth f/u 7r4m6481-c6n6-04h3-ympx-xe47792pjcu3 03/03/20 14 03/03/2014 Sivakumar Gómez MD REFILL FENTANYL l18o44w9-ofv4-7a4h-714k-p82z06g39x0l 03/30/20 14 03/30/2014 Sivakumar Gómez MD REFILL FENTANYL 3rpp52z7-1h84-1545-2105-t01dl2414e01 03/30/20 14 03/30/2014 Sivakumar Gómez MD REFILL FENTANYL 2nl092lc-9963-477w-s586-196ujq80y27w 03/30/20 14 03/30/2014 Sivakumar Gómez MD REFILL FENTANYL 5h7r45af-736y-50l0-o96z-53xse6o28hl5 03/30/20 14 03/30/2014 Sivakumar Gómez MD REFILL FENTANYL 47hy7042-69x9-25ef-518e-83y8ck1530s2 03/30/20 14 03/30/2014 Sivakumar Gómez MD REFILL FENTANYL 18ci3i45-8lt1-1u2p-4l23-0ti58mj85925 03/30/20 14 03/30/2014 Sivakumar Gómez MD REFILL FENTANYL u3s5j78w-064m-3aa3-b2a9-j8h74bg8r5d8 03/30/20 14 03/30/2014 Sivakumar Gómez MD REFILL FENTANYL v9vq397m-59ew-9z25-6pm4-15opg1259o2a 03/30/20 14 03/30/2014 Sivakumar Gómez MD REFILL FENTANYL bzwel470-118b-2513-5o22-6539865f4o9z 03/30/20 14 03/30/2014 Sivakumar Gómez MD REFILL FENTANYL r7u1z48s-ovcj-9dj4-0912-3n6s6ojjsj5r 03/30/20 14 03/30/2014 Sivakumar Gómez MD REFILL FENTANYL 18082520-1e53-0575-183j-7f1kkjo020oe 03/30/20 14 03/30/2014 Sivakumar Gómez MD REFILL FENTANYL n2tn8cs8-9873-9hk7-jy6z-75nx4n11y39s 03/30/20 14 03/30/2014 Sivakumar Gómez MD REFILL FENTANYL 1b2ser37-bm19-6as7-l23g-ql6w5f58d7uy 03/30/20 14 03/30/2014 Sivakumar Gómez MD REFILL FENTANYL 780p2ah8-r5r9-762l-3587-tj2064999o2r 03/30/20 14 03/30/2014 Sivakumar Gómez MD REFILL FENTANYL 8pd1o540-d887-047w-m844-4j6l16jm4u5n 03/30/20 14 03/30/2014 Sivakumar Gómez MD REFILL FENTANYL j7983175-fj07-74k7-1647-4h925kov2189 03/30/20 14 03/30/2014 Sivakumar Gómez MD REFILL FENTANYL 98930qea-3762-51o6-8ra6-z1kfa66943x1 03/30/20 14 03/30/2014 Sivakumar Gómez MD REFILL FENTANYL 1739z1t0-7088-72b4-lz00-l7958924f894 03/30/20 14 03/30/2014 Sivakumar Gómez MD REFILL FENTANYL 61864bt2-pi7b-6b99-9ma6-2533973y2714 03/30/20 14 03/30/2014 Sivakumar Gómez MD REFILL FENTANYL b993g976-3nov-8q20-912k-fy8ah2b8y01x 03/30/20 14 03/30/2014 Sivakumar Gómez MD REFILL FENTANYL 902yz639-3f47-92xq-rc3s-52m464055b85 03/30/20 14 03/30/2014 Sivakumar Gómez MD REFILL FENTANYL s2v088pq-g885-23l6-n5y4-7zpm62u7i6k7 03/30/20 14 03/30/2014 Sivakumar Gómez MD REFILL FENTANYL 258zv8o2-595k-46g6-mkd8-x560087532gz 03/30/20 14 03/30/2014 Sivakumar Gómez MD REFILL FENTANYL 829170i7-e3cm-6p74-658m-tvd48113yeh0 03/30/20 14 03/30/2014 Sivakumar Gómez MD REFILL FENTANYL 95l002u4-5y0m-3921-32k2-24467t655pv6 03/30/20 14 03/30/2014 Sivakumar Gómez MD REFILL FENTANYL uk0416da-ihzi-3c06-707b-910no9b1z4ro 03/30/20 14 03/30/2014 Sivakumar Gómez MD REFILL FENTANYL h3712e2g-391z-3n21-e2g7-583jt76t1505 03/30/20 14 03/30/2014 Sivakumar Gómez MD REFILL FENTANYL tjt787k7-p803-8q3z-4p00-i3tb0i7h8m01 03/30/20 14 03/30/2014 Sivakumar Gómez MD REFILL FENTANYL u6qe3616-no70-3bih-a2ee-qoh083r97814 03/30/20 14 03/30/2014 Sivakumar Gómez MD REFILL FENTANYL 97784ne0-30th-4d24-77er-78rq064941d9 03/30/20 14 03/30/2014 Sivakumar Gómez MD REFILL FENTANYL 595018wv-9l48-4129-hhrk-kmui03565875 03/30/20 14 03/30/2014 Sivakumar Gómez MD REFILL FENTANYL r234z426-627m-06ry-5v73-km34k95d08v2 03/30/20 14 03/30/2014 Sivakumar Gómez MD REFILL FENTANYL 79ui564q-l5z8-0846-00w2-52g079un042d 03/30/20 14 03/30/2014 Sivakumar Gómez MD REFILL FENTANYL 581i4wd8-696l-1dp4-m0a0-498426hk6079 03/30/20 14 03/30/2014 Sivakumar Gómez MD REFILL FENTANYL 29wkklu1-1aq5-8o5r-a4t8-33x50ab4470z 03/30/20 14 03/30/2014 Sivakumar Gómez MD REFILL FENTANYL 86t2qy4j-k88c-37jo-69v8-zhzx9071t7k5 03/30/20 14 03/30/2014 Sivakumar Gómez MD REFILL FENTANYL 0133on05-059b-3q12-xj35-86290a34zi77 03/30/20 14 03/30/2014 Sivakumar Gómez MD REFILL FENTANYL 9q148p88-3x9l-83w6-sghb-94g0784y7941 03/30/20 14 03/30/2014 Sivakumar Gómez MD REFILL FENTANYL 0338y5if-r048-63nd-58o2-13524782r0iv 03/30/20 14 03/30/2014 Sivakumar Gómez MD Abiluz refill n337wtcs-9yi8-0b4r-8n0f-7fo11q03fthi 04/24/20 14 04/24/2014 MD Leighton Perez refill s8c0f1dd-7bx7-3nws-80vr-p9fdlx9930a6 04/24/20 14 04/24/2014 Sivakumar Gómez MD Abiluz refill 58s57w60-8bc3-680q-p00r-2q2skr56e728 04/24/20 14 04/24/2014 MD Leighton Perez refill i7tz68w7-a58i-1h7t-8v64-6kqj606zy39j 04/24/20 14 04/24/2014 MD Leighton Perez refill xa7ugdfy-7fpo-1464-81o1-71237516120r 04/24/20 14 04/24/2014 MD Leighton Perez refill s402e1k3-061t-94q8-1w5x-23e3176p9470 04/24/20 14 04/24/2014 MD Leighton Perez refill 81aj0x9m-b7s7-2i24-m20x-8l5w8127lugq 04/24/20 14 04/24/2014 MD Leighton Perez refill blt908uu-vr5x-817e-t5r8-9cdq8o160i11 04/24/20 14 04/24/2014 MD Leighton Perez refill z451k815-7634-383d-3m1c-28e01905x80y 04/24/20 14 04/24/2014 MD Leighton Perez refill 603088b3-uc01-3q8f-y547-k8859u95s6lu 04/24/20 14 04/24/2014 Sivakumar Gómez MD Abiluz refill 2ux4680o-29ts-8l50-29dh-80791k374s10 04/24/20 14 04/24/2014 Sivakumar Gómez MD Abiluz refill x7wp7idr-m745-55x0-g7tf-x43822f3vacs 04/24/20 14 04/24/2014 Sivakumar Gómez MD Abiluz refill 463t00qf-7055-8bt1-p0ru-mz81x6614i41 04/24/20 14 04/24/2014 MD Leighton Perez refill m88kaa12-4n1a-78br-3367-a41gz30fw3a8 04/24/20 14 04/24/2014 MD Leighton Perez refill 9480h34b-45v8-6a6z-c2ra-k7f65176iey4 04/24/20 14 04/24/2014 MD Leighton Perez refill yo82wht2-t053-88l6-o917-9o9bw14u015d 04/24/20 14 04/24/2014 MD Leighton Perez refill 8178t065-h13z-66az-dssq-8q60v21238ds 04/24/20 14 04/24/2014 MD Leighton Perez refill 18r13w90-3w8m-1c30-2945-c28r73dg9n32 04/24/20 14 04/24/2014 MD Leighton Perez refill 671u6e0x-869p-7t13-i9vi-64t2g8554110 04/24/20 14 04/24/2014 MD Leighton Perez refill 4258i0rh-an6s-3z67-h93w-3h3hl2yw85t4 04/24/20 14 04/24/2014 MD Leighton Perez refill 9h494832-h3h6-5862-s53m-e823h7t81041 04/24/20 14 04/24/2014 MD Leighton Perez refill aw9276yk-o976-9680-a10b-thyd4q04z968 04/24/20 14 04/24/2014 MD Leighton Perez refill 11153zx2-q722-25st-648l-yvaznbsl9lu4 04/24/20 14 04/24/2014 MD Leighton Perez refill 01916z95-uf29-43e2-yc13-fic3j70fl07z 04/24/20 14 04/24/2014 MD Leighton Perez refill 9508oahy-706v-8q303s67-t78r-mx5ai4bc4r5q 04/24/20 14 04/24/2014 MD Leighton Perez refill 174z8135-tnrm-159w-lg67-a299f2120m4t 04/24/20 14 04/24/2014 MD Leighton Perez refill di93n95t-3a0b-43u5-r07s-9j503f4r9i50 04/24/20 14 04/24/2014 MD Leighton Perez refill 9e648a2y-5thn-7994-77gn-8856avl37958 04/24/20 14 04/24/2014 MD Leighton Perez refill 5u3035e2-l833-0902-x666-a660j44z1ts8 04/24/20 14 04/24/2014 MD Leighton Perez refill 0r81bjr6-pnn0-83n1-a55r-2kb3t6e65852 04/24/20 14 04/24/2014 Sivakumar Gómez MD Abien refill m77j1k99-6456-0d71-p578-i6s57555vm96 04/24/20 14 04/24/2014 Sivakumar Gómez MD Abien refill dp08u967-0p35-0270-549f-7d160b12946j 04/24/20 14 04/24/2014 Sivakumar Gómez MD [facility] refill [id number]-r21q-7340-hxdj-11870t7n8wna 04/24/20 14 04/24/2014 Sivakumar Gómez MD Abien refill [id number]-ev9d-6qr5c7416325 04/24/20 14 04/24/2014 Sivakumar Gómez MD fentanyl refill 28h5l0vw-w560-795q-cy99-b497h781hnh8 04/26/20 14 04/26/2014 Sivakumar Gómez MD fentanyl refill 8n6zq001-00ax-5489-pj0r-0me677o7e4iq 04/26/20 14 04/26/2014 Sivakumar Gómez MD fentanyl refill 4c4kd84v-u363-5y5w-19u4-08rn9ua8033x 04/26/20 14 04/26/2014 Sivakumar Gómez MD fentanyl refill lwp4j5c5-5q96-3v85-2z24-zc22n683kznw 04/26/20 14 04/26/2014 Sivakumar Gómez MD fentanyl refill [id number]-k4c2-6u9r4j537087 04/26/20 14 04/26/2014 Sivakumar Gómez MD fentanyl refill 39y93qdo-w635-1810-2ye2-25374z3u9s36 04/26/20 14 04/26/2014 Sivakumar Gómez MD fentanyl refill 8id147b7-49i3-63ds-z680-68f1uf866496 04/26/20 14 04/26/2014 Sivakumar Gómez MD fentanyl refill 96ez9916-p884-9gwz-y86g-10on0qz6t377 04/26/20 14 04/26/2014 Sivakumar Gómez MD fentanyl refill r7283zj0-843t-896f-s8h4-1d91s3m47534 04/26/20 14 04/26/2014 Sivakumar Gómez MD fentanyl refill 12n42q22-6u65-19h6-2s54-8i12k93f302y 04/26/20 14 04/26/2014 Sivakumar Gómez MD fentanyl refill 4l8656yx-uk9s-97p0-0566-763tz036708i 04/26/20 14 04/26/2014 Sivakumar Gómez MD fentanyl refill lb844vw5-jv27-80w7-ol30-s1a76pd542e6 04/26/20 14 04/26/2014 Sivakumar Gómez MD fentanyl refill bm094jpe-dc99-8552-0486-eq91203ee8f2 04/26/20 14 04/26/2014 Sivakumar Gómez MD fentanyl refill g3ta0o5j-0y2z-09uo-4uuh-707ttvt5etm4 04/26/20 14 04/26/2014 Sivakumar Gómez MD fentanyl refill bde51pl6-2tl3-6838-stf4-l2z0j7300737 04/26/20 14 04/26/2014 Sivakumar Gómez MD fentanyl refill 81wjobl9-2w90-1105-x1o6-13l3i6t22qs8 04/26/20 14 04/26/2014 Sivakumar Góemz MD fentanyl refill 7884l31x-y1v0-8122-76n8-h075348si90i 04/26/20 14 04/26/2014 Sivakumar Gómez MD fentanyl refill 22m67369-4473-52g8-1686-k2718cyjeko4 04/26/20 14 04/26/2014 Sivakumar Gómez MD fentanyl refill [id number]-d0pe-9zma-942r-yw573218u5t3 04/26/20 14 04/26/2014 Sivakumar Gómez MD fentanyl refill w22frd11-la5i-29v5-v77e-q60r0z2946u0 04/26/20 14 04/26/2014 Sivakumar Gómez MD fentanyl refill [id number]-g297-7w23-k266-7z99k7kvt621 04/26/20 14 04/26/2014 Sivakumar Gómez MD fentanyl refill s675c104-ryic-3390-t31f-k005fp2wdw1w 04/26/20 14 04/26/2014 Sivakumar Gómez MD fentanyl refill 8b941t1k-5g10-3t57-5065-s5420s277374 04/26/20 14 04/26/2014 Sivakumar Gómez MD fentanyl refill 1bwhb92i-tst6-2e28-as7d-4o87k89h91b5 04/26/20 14 04/26/2014 Sivakumar Gómez MD fentanyl refill b4y319op-0y18-297i-m9mo-98081b808k74 04/26/20 14 04/26/2014 Sivakumar Gómez MD fentanyl refill a1dzv9v3-1k1s-8x55-l451-a7464rh24t28 04/26/20 14 04/26/2014 Sivakumar Gómez MD fentanyl refill [id number]-k7u8-7753128x8744 04/26/20 14 04/26/2014 Sivakumar Gómez MD fentanyl refill 6883i707-00o0-48e8-95z6-50lho36e1va5 04/26/20 14 04/26/2014 Sivakumar Gómez MD fentanyl refill 2997kg59-91gr-7oh3-n673-c8k8a5g47fhl 04/26/20 14 04/26/2014 Sivakumar Gómez MD fentanyl refill r44w2p5z-6667-23b7-961u-5371mkp1441m 04/26/20 14 04/26/2014 Sivakumar Gómez MD fentanyl refill [id number]-7y32-20k347gy5ud0 04/26/20 14 04/26/2014 Sivakumar Gómez MD fentanyl refill j6ar22m8-v40x-2wz3-266i-u3gh3469j0c4 04/26/20 14 04/26/2014 Sivakumar Gómez MD fentanyl refill 3607hv1h-x0sx-29l8-ty62-u9d53209377b 04/26/20 14 04/26/2014 Sivakumar Gómez MD fentanyl refill [id number]-eitp-9254441y9q38 04/26/20 14 04/26/2014 Sivakumar Gómez MD REFILL 4t6tl855-4kga-3f24-p226-62824s0n7jpz 06/02/20 14 06/02/2014 Sivakumar Gómez MD REFILL 5y105889-b46x-5f5l-ie83-951lh2czt52k 06/02/20 14 06/02/2014 Sivakumar Gómez MD REFILL 25j2j0q3-7042-9w24-u0qn-39549ul1f9vl 06/02/20 14 06/02/2014 Sivakumar Gómez MD REFILL v9md876u-r915-4ywn-hpnd-y6ko7nuu0g0d 06/02/20 14 06/02/2014 Sivakumar Gómez MD REFILL l47ha4fp-9886-288j-o6g2-i4vy96c8v694 06/02/20 14 06/02/2014 Sivakumar Gómez MD REFILL 0q381m2o-q69d-565c-o040-71s8777cm20r 06/02/20 14 06/02/2014 Sivakumar Gómez MD REFILL rsmc89g5-t839-71t6-5ly1-m39g40mi17g2 06/02/20 14 06/02/2014 Sivakumar Gómez MD REFILL 5lz05yf5-4g63-85j2-hd52-92o74oy5b209 06/02/20 14 06/02/2014 Sivakumar Gómez MD REFILL 0g8i99zg-666j-5k54-35xb-075qoxh0s8q6 06/02/20 14 06/02/2014 Sivakumar Gómez MD REFILL j2y4354d-q67s-0528-5pyc-up09njtg20iw 06/02/20 14 06/02/2014 Sivakumar Gómez MD REFILL 8fl41tra-85e0-864y-q8je-j9w9j1gz4135 06/02/20 14 06/02/2014 Sivakumar Gómez MD REFILL 01a9gs6k-5e56-4l12-7296-4uv509c5126v 06/02/20 14 06/02/2014 Sivakumar Gómez MD REFILL 068i59i8-x1e8-884p-xzq6-hy3tyl9bja8q 06/02/20 14 06/02/2014 Sivakumar Gómez MD REFILL a30va2lp-2320-38n7-x9mc-68d50c46465w 06/02/20 14 06/02/2014 Sivakumar Gómez MD REFILL 08w882w5-z512-870e-pua3-kg19074f5995 06/02/20 14 06/02/2014 Sivakumar Gómez MD REFILL u1101czw-ui79-1061-b44b-e33cku72e5lf 06/02/20 14 06/02/2014 Sivakumar Gómez MD REFILL b7p727h5-69y2-1b39-x969-35fsm7g3g907 06/02/20 14 06/02/2014 Sivakumar Gómez MD REFILL 22v4r2b9-9ulf-3ubg-g07q-n616m3c25749 06/02/20 14 06/02/2014 Sivakumar Gómez MD REFILL 2047z702-55ag-95cu-9926-33o36sc76nth 06/02/20 14 06/02/2014 Sivakumar Gómez MD REFILL 92909l90-u347-4a36-35xk-8pc973520511 06/02/20 14 06/02/2014 Sivakumar Gómez MD REFILL kh89s459-370l-76p6-v591-90e873j07g34 06/02/20 14 06/02/2014 Sivakumar Gómez MD REFILL 02994n47-0v6f-9q37-201o-z98m2639yi8g 06/02/20 14 06/02/2014 Sivakumar Gómez MD REFILL 6w3s1t62-1550-110v-120r-7620564608jp 06/02/20 14 06/02/2014 Sivakumar Gómez MD REFILL gt7z41v4-0098-5926-2j31-nf49g754577e 06/02/20 14 06/02/2014 Sivakumar Gómez MD REFILL 7p7b67n9-a1p8-1mp2-c6q8-95fvf0384t6i 06/02/20 14 06/02/2014 Sivakumar Gómez MD REFILL cz3j2gh5-3n9a-81m4-o302-u3y25xg0n23k 06/02/20 14 06/02/2014 Sivakumar Gómez MD REFILL vz0594g4-8b41-9o25-j16m-u00s535g00es 06/02/20 14 06/02/2014 Sivakumar Gómez MD REFILL 8erz66wf-3518-52ex-n7u8-5r794194k3w9 06/02/20 14 06/02/2014 Sivakumar Gómez MD REFILL 8vlb998m-93gl-5t6x-0byr-poo61f05g992 06/02/20 14 06/02/2014 Sivakumar Gómez MD REFILL xa26o075-3og4-2rr6-3pn7-7g15p7v3f2n6 06/02/20 14 06/02/2014 Sivakumar Gómez MD REFILL 98k8bt58-vuao-2930-p827-fm485ei4rsxf 06/02/20 14 06/02/2014 Sivakumar Gómez MD REFILL 1a6qt471-6513-5xax-g56p-11a4a7ll2mxe 06/02/20 14 06/02/2014 Sivakumar Gómez MD patient update 11eg6239-6w0g-9kz6-3s41-k2fy44t676l7 06/09/20 14 06/09/2014 Sivakumar Gómez MD patient update i1i3851s-4361-211s-l87b-576m786o6n9r 06/09/20 14 06/09/2014 Sivakumar Gómez MD patient update 971tn6zx-w6xv-1q0n-3474-235es61jx09x 06/09/20 14 06/09/2014 Sivakumar Gómez MD patient update vv15v5o0-94n3-126y-bqt0-43vp2o8mh73w 06/09/20 14 06/09/2014 Sivakumar Gómez MD patient update 73d068r5-u170-6vv0-7t42-16b6p37gs64z 06/09/20 14 06/09/2014 Sivakumar Gómez MD patient update 8t7bwh25-20k0-7h7y-170h-63tq1x92991h 06/09/20 14 06/09/2014 Sivakumar Gómez MD patient update q6s43qho-im36-8sz1-y905-z979058c91m0 06/09/20 14 06/09/2014 Sivakumar Gómez MD patient update 1w9x0mr0-ycw6-5vp4-c5j7-mo96510x3797 06/09/20 14 06/09/2014 Sivakumar Gómez MD patient update 4u2557ob-j807-1q7y-h38t-78c6lo526994 06/09/20 14 06/09/2014 Sivakumar Gómez MD patient update 99246q4l-h9gg-9vg6-q58c-ze175ns9i66u 06/09/20 14 06/09/2014 Sivakumar Gómez MD patient update 4qa7r21t-q193-6403-ubt1-7x3tlu495m79 06/09/20 14 06/09/2014 Sivakumar Gómez MD patient update c1391bq1-553i-0v65-2m70-q1t4hjc2wk4a 06/09/20 14 06/09/2014 Sivakumar Gómez MD patient update wx72t6n3-93ro-6vu4-n641-0538654um372 06/09/20 14 06/09/2014 Sivakumar Gómez MD patient update 6g4j9a36-63c0-1028-x73l-17962r44375j 06/09/20 14 06/09/2014 Sivakumar Gómez MD patient update p3f89277-o6u0-0638-0gxl-081328r91762 06/09/20 14 06/09/2014 Sivakumar Gómez MD patient update 0j61w4hv-va15-89q7-xf6p-9kx604tv7dxp 06/09/20 14 06/09/2014 Sivakumar Gómez MD patient update [id number]-ut7x-8c65-714h-9o38j2n9wrf5 06/09/20 14 06/09/2014 Sivakumar Gómez MD patient update 5b8f9fu2-5a7t-0abr-5wmo-1773f14283p1 06/09/20 14 06/09/2014 Sivakumar Gómez MD patient update dk629009-6zk0-0933-t456-op7vqly48ll2 06/09/20 14 06/09/2014 Sivakumar Gómez MD patient update aj64p4ek-3677-6q07-imf9-8od2f681g7v3 06/09/20 14 06/09/2014 Sivakumar Gómez MD patient update dp6b7v0g-o2og-69n3-n8bf-503r9370294t 06/09/20 14 06/09/2014 Sivakumar Gómez MD patient update yq84bl84-s2a4-842q-kkmz-9r4r0y068g72 06/09/20 14 06/09/2014 Sivakumar Gómez MD patient update 00v31l34-x05u-0s8k-d90f-696143a9254w 06/09/20 14 06/09/2014 Sivakumar Gómez MD patient update 3aj5m58i-6619-188w-dj80-ded6m4125002 06/09/20 14 06/09/2014 Sivakumar Gómez MD patient update 2txyiud0-08e4-7y3u-kwn0-890hs994328o 06/09/20 14 06/09/2014 Sivakumar Gómez MD patient update 154bo487-0mr0-3m01-162x-8cv320v9031g 06/09/20 14 06/09/2014 Sivakumar Gómez MD patient update [id number]-22mo-128z-5r2px5j39y32 06/09/20 14 06/09/2014 Sivakumar Gómez MD patient update [id number] 06/09/20 14 06/09/2014 Sivakumar Gómez MD patient update [id number] 06/09/20 14 06/09/2014 Sivakumar Gómez MD patient update [id number]-[id number] 06/09/20 14 06/09/2014 Sivakumar Gómez MD patient update [id number]-3pwg-0rvp-3qw9cjv15z75 06/09/20 14 06/09/2014 Sivakumar Gómez MD patient update [id number] 06/09/20 14 06/09/2014 Sivakumar Gómez MD [facility] [id number] 08/17/20 14 08/17/2014 Sivakumar Gómez MD [facility] [id number] 08/17/20 14 08/17/2014 Sivakumar Gómez MD [facility] [id number] 08/17/20 14 08/17/2014 Sivakumar Gómez MD [facility] [id number] 08/17/20 14 08/17/2014 Sivakumar Gómez MD [facility] [id number] 08/17/20 14 08/17/2014 Sivakumar Gómez MD [facility] [id number] 08/17/20 14 08/17/2014 Sivakumar Gómez MD [facility] [id number] 08/17/20 14 08/17/2014 Sivakumar Gómez MD [facility] [id number] 08/17/20 14 08/17/2014 Sivakumar Gómez MD [facility] [id number] 08/17/20 14 08/17/2014 Sivakumar Gómez MD [facility] [id number] 08/17/20 14 08/17/2014 Sivakumar Gómez MD [facility] [id number] 08/17/20 14 08/17/2014 Sivakumar Gómez MD [facility] [id number] 08/17/20 14 08/17/2014 Sivakumar Gómez MD [facility] [id number] 08/17/20 14 08/17/2014 Sivakumar Gómez MD [facility] [id number] 08/17/20 14 08/17/2014 Sivakumar Gómez MD [facility] [id number] 08/17/20 14 08/17/2014 Sivakumar Gómez MD [facility] [id number]-[id number] 08/17/20 14 08/17/2014 Sivakumar Gómez MD [facility] [id number] 08/17/20 14 08/17/2014 Sivakumar Gómez MD [facility] [id number] 08/17/20 14 08/17/2014 Sivakumar Gómez MD [facility] [id number] 08/17/20 14 08/17/2014 Sivakumar Gómez MD [facility] [id number] 08/17/20 14 08/17/2014 Sivakumar Gómez MD [facility] [id number] 08/17/20 14 08/17/2014 Sivakumar Gómez MD [facility] [id number] 08/17/20 14 08/17/2014 Sivakumar Gómez MD [facility] [id number] 08/17/20 14 08/17/2014 Sivakumar Gómez MD [facility] [id number] 08/17/20 14 08/17/2014 Sivakumar Gómez MD [facility] [id number] 08/17/20 14 08/17/2014 Sivakumar Gómez MD [facility] [id number] 08/17/20 14 08/17/2014 Sivakumar Gómez MD [facility] [id number] 08/17/20 14 08/17/2014 Sivakumar Gómez MD [facility] [id number] 08/17/20 14 08/17/2014 Sivakumar Gómez MD [facility] [id number] 08/17/20 14 08/17/2014 Sivakumar Gómez MD [facility] [id number] 08/17/20 14 08/17/2014 Sivakumar Góemz MD Triplicate-- Fentanyl [id number]-n7ky-04tn-t924-27he2927b1n1 08/26/2014 08/26/2014 Sivakumar Gómez MD Triplicate-- Fentanyl 6rj6h7r6-sa25-131n-74gf-2lma4j3nz65z 08/26/2014 08/26/2014 Sivakumar Gómez MD Triplicate-- Fentanyl 8i492069-1914-2u17-smhd-3gd914426514 08/26/2014 08/26/2014 Sivakumar Gómez MD Triplicate-- Fentanyl 8q56r276-k2y4-5ka1-g751-l4jk008393m7 08/26/2014 08/26/2014 Sivakumar Gómez MD Triplicate-- Fentanyl 65lg8q31-593n-446n-44mo-0f9300m5pxg2 08/26/2014 08/26/2014 Sivakumar Gómez MD Triplicate-- Fentanyl 9t3k7j29-e6ag-4vz4-u686-otb5747h1j35 08/26/2014 08/26/2014 Sivakumar Gómez MD Triplicate-- Fentanyl tew3ts28-k080-0m22-7f44-s66d6zk53362 08/26/2014 08/26/2014 Sivakumar Gómez MD Triplicate-- Fentanyl 4s71lx5l-9r6e-07a8-82l2-jqi70b3o3205 08/26/2014 08/26/2014 Sivakumar Gómez MD Triplicate-- Fentanyl 27h0prlm-30x6-608s-ssd5-7ckj4j380nl9 08/26/2014 08/26/2014 Sivakumar Gómez MD Triplicate-- Fentanyl 89116kq5-33v1-2j65-dea5-h21424f598jf 08/26/2014 08/26/2014 Sivakumar Gómez MD Triplicate-- Fentanyl k972b17y-q247-80sd-o52g-0032a320131l 08/26/2014 08/26/2014 Sivakumar Gómez MD Triplicate-- Fentanyl 344x243n-6585-0295-zm93-80b4xpz83m7e 08/26/2014 08/26/2014 Sivakumar Gómez MD Triplicate-- Fentanyl 72fr8050-4088-0012-5lia-28w82h0l58m9 08/26/2014 08/26/2014 Sivakumar Gómez MD Triplicate-- Fentanyl 5y39lr4k-9fj4-0007-j65q-23840r9u8t78 08/26/2014 08/26/2014 Sivakumar Gómez MD Triplicate-- Fentanyl 1p3lz75a-1r55-6j3d-r899-38512w35o104 08/26/2014 08/26/2014 Sivakumar Gómez MD Triplicate-- Fentanyl kz41m41b-5496-7109-mm1l-7c01gh510eg2 08/26/2014 08/26/2014 Sivakumar Gómez MD Triplicate-- Fentanyl wj86j9w6-84jy-2jou-0n30-ii5f4r2q4861 08/26/2014 08/26/2014 Sivakumar Gómez MD Triplicate-- Fentanyl 62ugq14u-4u79-433w-9265-j26571w03q8i 08/26/2014 08/26/2014 Sivakumar Gómez MD Triplicate-- Fentanyl 7u8xth57-9j11-0p30-h550-wg24a6608123 08/26/2014 08/26/2014 Sivakumar Gómez MD Triplicate-- Fentanyl i67co3p9-1g69-4h3d-a636-982v4l2pw046 08/26/2014 08/26/2014 Sivakumar Gómez MD Triplicate-- Fentanyl d8h37j0l-491n-4a90-n9rv-62zrkgrxm352 08/26/2014 08/26/2014 Sivakumar Gómez MD Triplicate-- Fentanyl 8069383e-1wta-5wx2-5g39-81dc194i7n1o 08/26/2014 08/26/2014 Sivakumar Gómez MD Triplicate-- Fentanyl 858f427p-v97h-9ifh-12w0-680efni73vq0 08/26/2014 08/26/2014 Sivakumar Gómez MD Triplicate-- Fentanyl 070v305t-uz68-712t-nr39-t203s1mv5ywr 08/26/2014 08/26/2014 Sivakumar Gómez MD Triplicate-- Fentanyl 67a375iy-22r5-8pa5-1996-23240j1p68r9 08/26/2014 08/26/2014 Sivakumar Gómez MD Triplicate-- Fentanyl j2uhy5i9-a4p9-94h8-gta9-9587ltv928p3 08/26/2014 08/26/2014 Sivakumar Gómez MD Triplicate-- Fentanyl 62s865j2-50s6-66qd-56d7-qk24x80327s6 08/26/2014 08/26/2014 Sivakumar Gómez MD Triplicate-- [facility] [id number]-p3e5-sm3a0094886n 08/26/2014 08/26/2014 Sivakumar Gómez MD Triplicate-- [facility] c095160c-127c-1i4f-z792-026p72290645 08/26/2014 08/26/2014 Sivakumar Gómez MD f/u 2k68wsz1-58vt-9098-1n72-ot3we6xxuke9 09/08/2014 09/08/2014 Sivakumar Gómez MD f/u 429d7805-1744-53cn-4t94-3c9745r15615 09/08/2014 09/08/2014 Sivakumar Gómez MD f/u 2m2dfv29-x019-9m91-4547-15e9j2p11315 09/08/2014 09/08/2014 Sivakumar Gómez MD f/u 59v42iwb-612y-4b17-6440-49240po1r51c 09/08/2014 09/08/2014 Sivakumar Gómez MD f/u 35636701-3748-0g4w-nq31-27ph9q50r772 09/08/2014 09/08/2014 Sivakumar Gómez MD f/u 083e4fss-l922-8791-x051-01244a1198ft 09/08/2014 09/08/2014 Sivakumar Gómez MD f/u n278361y-6685-0724-8w84-02g873hsa5j2 09/08/2014 09/08/2014 Sivakumar Gómez MD f/u k53db183-3pp0-7p2r-9e9k-lf836j075473 09/08/2014 09/08/2014 Sivakumar Gómez MD f/u ou3802r9-34f1-6qn9-s893-xp671rb2f473 09/08/2014 09/08/2014 Sivakumar Gómez MD f/u j7159qte-8br2-9ze7-f206-1341qoj7801m 09/08/2014 09/08/2014 Sivakumar Gómez MD f/u 712035sv-755v-22v2-u75g-1766582941fb 09/08/2014 09/08/2014 Sivakumar Gómez MD f/u 47682lh4-3ur7-2e3j-cg96-795140sjf084 09/08/2014 09/08/2014 Sivakumar Gómez MD f/u 71d5984k-l482-1yg5-6819-33i4bs23j4cw 09/08/2014 09/08/2014 Sivakumar Gómez MD f/u wv1vir0i-4o48-2064-2625-3r756874a5m9 09/08/2014 09/08/2014 Sivakumar Gómez MD f/u j5ek262z-5xyg-6o38-338a-9ic8535x7472 09/08/2014 09/08/2014 Sivakumar Gómez MD f/u vi8095b5-5neg-5784-0693-si6rdi357u63 09/08/2014 09/08/2014 Sivakumar Gómez MD f/u h5745f03-pse0-8126-4c3g-0lf450stdf03 09/08/2014 09/08/2014 Sivakumar Gómez MD f/u n57124u7-ez46-7y52-r329-d3s0r862xvof 09/08/2014 09/08/2014 Sivakumar Gómez MD f/u 3t244d6b-319u-5eyb-xwc2-45bwe0cr8949 09/08/2014 09/08/2014 Sivakumar Gómez MD f/u 3s4s8243-1q34-5gdc-q491-836n2910252z 09/08/2014 09/08/2014 Sivakumar Gómez MD f/u st6ai9iz-g560-05f1-0281-65n5349y9h81 09/08/2014 09/08/2014 Sivkaumar Gómez MD f/u 3on1i511-i195-4j7u-m5du-75d6159e4z1x 09/08/2014 09/08/2014 Sivakumar Gómez MD f/u 2zz08l81-m655-87n7-763u-q86108688v39 09/08/2014 09/08/2014 Sivakumar Gómez MD f/u 092j4y96-283j-1wmp-xr39-xc8xol43dh01 09/08/2014 09/08/2014 Sivakumar Gómez MD f/u f09b4606-55n4-8kv1-6a3o-83j68m35f7m6 09/08/2014 09/08/2014 Sivakumar Gómez MD f/u 4k3qb394-u84g-3y81-rerz-n779aye52636 09/08/2014 09/08/2014 Sivakumar Gómez MD f/u i57m8pwv-3334-004u-0fpo-aby718g9rt68 09/08/2014 09/08/2014 Sivakumar Gómez MD f/u 01ln3h5p-2w84-8538-h0a4-t91z41m1463g 09/08/2014 09/08/2014 Sivakumar Gómez MD Add on v7bnf191-i0ae-7z06-8lii-xj1s26d82473 10/01/19 15 10/01/2014 Sivakumar Gómez MD Add on 45n1jd99-j42p-6da4-b71w-c44qhl60855b 10/01/19 15 10/01/2014 Sivakumar Gómez MD Add on 5bo98jfx-93r0-2s82-0ws0-44069uk23d1m 10/01/19 15 10/01/2014 Sivakumar Gómez MD Add on s5072g95-y751-4537-r6y1-56b5455du8k4 10/01/19 15 10/01/2014 Sivakumar Gómez MD Add on 968x5fy2-lg22-3648-m39u-j4w65785w264 10/01/19 15 10/01/2014 Sivakumar Gómez MD Add on 68242x4i-uj40-22x3-1602-qws911i58367 10/01/19 15 10/01/2014 Sivakumar Gómez MD Add on 873806aj-xol9-178h-m0q7-916v6v680a83 10/01/19 15 10/01/2014 Sivakumar Gómez MD Add on 9d55v3a0-cc75-6831-cs11-ow8424hx83te 10/01/19 15 10/01/2014 Sivakumar Gómez MD Add on 3l7om9q5-27h8-1717-52c5-29fa20024kz3 10/01/19 15 10/01/2014 Sivakumar Gómez MD Add on dc0g3o42-7dxh-664k-f056-96080xoy5ly8 10/01/19 15 10/01/2014 Sivakumar Gómez MD Add on 40u0lv8v-80p8-7w4s-j91j-563785584l73 10/01/19 15 10/01/2014 Sivakumar Gómez MD Add on ly56487g-5xh3-45r0-72a9-ouz66k07415t 10/01/19 15 10/01/2014 Sivakumar Gómez MD Add on 5ediu518-271f-2eo5-1d38-4kxw220m5192 10/01/19 15 10/01/2014 Sivakumar Gómez MD Add on 761184b0-113w-5ao7-a58q-521h1o8xzj4s 10/01/19 15 10/01/2014 Sivakumar Gómez MD Add on 4i1vi2v1-j76i-56h1-t76m-178u77136608 10/01/19 15 10/01/2014 Sivakumar Gómez MD Add on 89911v64-33s1-043h-s912-1fhr1u8d0m61 10/01/19 15 10/01/2014 Sivakumar Gómez MD Add on e1g05118-g89b-679e-7201-r0o6948es75e 10/01/19 15 10/01/2014 Sivakumar Gómez MD Add on 1cpbam65-v694-847j-1s8g-682c7k90j746 10/01/19 15 10/01/2014 Sivakumar Gómez MD Add on 1046lq8z-un82-16cn-3ef2-12a3s233hcu9 10/01/19 15 10/01/2014 Sivakumar Gómez MD Add on e4536bxm-2936-49o2-c728-1sf7q02bw13b 10/01/19 15 10/01/2014 Sivakumar Gómez MD Add on 9629658v-9r99-4167-d4t0-iodm383e8up0 10/01/19 15 10/01/2014 Sivakumar Gómez MD Add on 0xnp34v2-7nx7-5261-5lz1-75bk1h6e3r71 10/01/19 15 10/01/2014 Sivakumar Gómez MD Add on p76h1715-s8m5-4516-5i48-6449855q8735 10/01/19 15 10/01/2014 Sivakumar Gómez MD Add on 11m9ua5m-2t30-8652-k3cr-goj3c81123nd 10/01/19 15 10/01/2014 Sivakumar Gómez MD Add on 52f2476w-907r-89uo-w1tr-78w2c5284sa9 10/01/19 15 10/01/2014 Sivakumar Gómez MD Add on gy9107v0-174f-2196-748q-ycuomq4625o8 10/01/19 15 10/01/2014 Sivakumar Gómez MD Add on 941b2w1y-2jf0-935j-10oc-e7x425z8r5lz 10/01/19 15 10/01/2014 Sivakumar Gómez MD TRIPLICATE F/U 3z7z353u-if02-9au5-4di4-67381235c5am 10/08/19 15 10/08/2014 Sivakumar Gómez MD TRIPLICATE F/U 8jqu14f6-gh7i-2taf-7834-c90w7l740v14 10/08/19 15 10/08/2014 Sivakumar Gómez MD TRIPLICATE F/U 232f5355-5393-3g18-u37f-3yj417kde86n 10/08/19 15 10/08/2014 Sivakumar Gómez MD TRIPLICATE F/U 66n29834-9131-3ly2-03oy-17a5240nt7ov 10/08/19 15 10/08/2014 Sivakumar Gómez MD TRIPLICATE F/U 7d51z8xx-zzv6-7lbe-if71-opoo2k7307lq 10/08/19 15 10/08/2014 Sivakumar Gómez MD TRIPLICATE F/U 4r6i3hc8-99ww-76m0-4231-tg6m8ujn806w 10/08/19 15 10/08/2014 Sivakumar Gómez MD TRIPLICATE F/U i2ncud4s-73a8-224a-epn0-iw6ucwx2b315 10/08/19 15 10/08/2014 Sivakumar Gómez MD TRIPLICATE F/U 6w1etj19-1nh1-7sfm-3j38-8024141x8jom 10/08/19 15 10/08/2014 Sivakumar Gómez MD TRIPLICATE F/U j7jxp345-07hy-584u-5195-5e00u196pd2f 10/08/19 15 10/08/2014 Sivakumar Gómez MD TRIPLICATE F/U 052538h5-358j-5d7u-7272-41q96os360lt 10/08/19 15 10/08/2014 Sivakumar Gómez MD TRIPLICATE F/U s36q7030-x0rg-327x-86p2-y6664k017p57 10/08/19 15 10/08/2014 Sivakumar Gómez MD TRIPLICATE F/U 85y26l35-xlml-94b1-6220-7630lcr35h82 10/08/19 15 10/08/2014 Sivakumar Gómez MD TRIPLICATE F/U 0wj3oj1v-796t-607r-vb05-6w031848467l 10/08/19 15 10/08/2014 Sivakumar Gómez MD TRIPLICATE F/U 181l7j2f-335y-284e-b81e-41w005j455wl 10/08/19 15 10/08/2014 Sivakumar Gómez MD TRIPLICATE F/U 40na01h0-1y14-131s-ui76-6b9159s271a3 10/08/19 15 10/08/2014 Sivakumar Gómez MD TRIPLICATE F/U g4x37n51-0442-4b1r-u72r-41519nw45164 10/08/19 15 10/08/2014 Sivakumar Gómez MD TRIPLICATE F/U 81s0t96g-pg8m-4v89-078r-579n779r5807 10/08/19 15 10/08/2014 Sivakumar Gómez MD TRIPLICATE F/U 709mlp5j-5yux-3961-873z-74q13n5lwuuj 10/08/19 15 10/08/2014 Sivakumar Gómez MD TRIPLICATE F/U yf9j8275-63r9-8t91-9w50-800o1t2f7l91 10/08/19 15 10/08/2014 Sivakumar Gómez MD TRIPLICATE F/U 4u6b443p-e38p-9xz3-y418-38811yz1m5s7 10/08/19 15 10/08/2014 Sivakumar Gómez MD TRIPLICATE F/U 8579w3a2-8h32-1cv9-4133-9pl4acx47578 10/08/19 15 10/08/2014 Sivakumar Gómez MD TRIPLICATE F/U 8u06861u-67j3-73hc-o9tt-0189639b34z0 10/08/19 15 10/08/2014 Sivakumar Gómez MD TRIPLICATE F/U w55w3x31-z38e-1c31-077y-ia7y70yw2d1p 10/08/19 15 10/08/2014 Sivakumar Gómez MD TRIPLICATE F/U 94q44020-s42e-8v51-272o-y507j5047909 10/08/19 15 10/08/2014 Sivakumar Gómez MD tramadol rx t2hgd071-af15-9my5-foki-944ad50i8h27 10/11/19 15 10/11/2014 Sivakumar Gómez MD tramadol rx 703yjlvj-6147-69xs-9r01-2759csuoc4i5 10/11/19 15 10/11/2014 Sivakumar Gómez MD tramadol rx 3509y03y-t80f-81a4-1859-9yae21k5wf95 10/11/19 15 10/11/2014 Sivakumar Gómez MD tramadol rx 413jx509-c189-69a1-447r-i5j7c8dl5x8d 10/11/19 15 10/11/2014 Sivakumar Gómez MD tramadol rx 269o7hrg-a9qs-94y2-x4f4-t2e6u478110n 10/11/19 15 10/11/2014 Sivakumar Gómez MD tramadol rx h9198d72-vwkq-3t18-85ry-l6903h97583a 10/11/19 15 10/11/2014 Sivakumar Gómez MD tramadol rx qg56s653-9721-4244-0891-068wv0230887 10/11/19 15 10/11/2014 Sivakumar Gómez MD tramadol rx 1842u9ql-gy3b-2ctb-bne4-bb7hw08a5270 10/11/19 15 10/11/2014 Sivakumar Gómez MD tramadol rx aun9yy1b-w73d-17rs-08c7-0ye799b19zcy 10/11/19 15 10/11/2014 Sivakumar Gómez MD tramadol rx df1m718s-i1s3-3b4u-703o-kg9c960b8x01 10/11/19 15 10/11/2014 Sivakumar Gómez MD tramadol rx 1ji8y758-9o3u-75p5-vq34-m8ktvu17e703 10/11/19 15 10/11/2014 Sivakumar Gómez MD tramadol rx 155208yo-3058-34x6-umww-10q977k5yo4n 10/11/19 15 10/11/2014 Sivakumar Gómez MD tramadol rx 6mqimr98-75f0-686q-29mg-36lg3am9zj8n 10/11/19 15 10/11/2014 Sivakumar Gómez MD tramadol rx 0d65m98h-eh43-47m2-42x1-1p79070gn5l9 10/11/19 15 10/11/2014 Sivakumar Gómez MD tramadol rx w43r3f9e-6wnk-8xx0-1a82-34rk16xlv437 10/11/19 15 10/11/2014 Sivakumar Gómez MD tramadol rx 6p6755r6-69r7-771w-rp56-95ne5914pw3f 10/11/19 15 10/11/2014 Sivakumar Gómez MD tramadol rx 6x999m8a-189s-9y79-54s7-70nq186e9pn6 10/11/19 15 10/11/2014 Sivakumar Gómez MD tramadol rx l82n54l4-1mn3-3b0v-0ta4-8ilxzi460754 10/11/19 15 10/11/2014 Sivakumar Gómez MD tramadol rx 3h467e88-8o5l-63v8-6185-15b5645v8609 10/11/19 15 10/11/2014 Sivakumar Gómez MD tramadol rx x4z3w285-5563-7282-986b-n5q8de592t6y 10/11/19 15 10/11/2014 Sivakumar Gómez MD tramadol rx 85t51953-4hj5-58s0-a0s0-n95kh3e09ke1 10/11/19 15 10/11/2014 Sivakumar Gómez MD tramadol rx w2au76bb-bc53-53q5-2027-y75073924t1t 10/11/19 15 10/11/2014 Sivakumar Gómez MD tramadol rx 1780n4o1-v5n3-5127-7126-l718jjmk58dq 10/11/19 15 10/11/2014 MD ani Perezadol rx l9av8w38-s895-1vk0-n290-i982s5ui2a9v 10/11/19 15 10/11/2014 Sivakumar Gómez MD tramadol rx 18ty513u-2c2p-811o-6y3p-4orujt4tey8p 10/11/19 15 10/11/2014 Sivakumar Gómez MD tramadol rx 1o5p8k12-9511-842a-h59u-3b5s1688308j 10/11/19 15 10/11/2014 Sivakumar Gómez MD TRIPLICATE F/U 883sbn86-w0mz-862v-d35n-18b6j30c64o5 11/05/19 15 11/05/2014 Sivakumar Gómez MD TRIPLICATE F/U 532ub3f8-mz70-2561-818n-2r1q18np05ii 11/05/19 15 11/05/2014 Sivakumar Gómez MD TRIPLICATE F/U 7b1809j2-9x9y-5d6o-8w8x-6fx9k9s7579k 11/05/19 15 11/05/2014 Sivakumar Gómez MD TRIPLICATE F/U d9779496-28vi-33j7-m8u9-l7mi67635x07 11/05/19 15 11/05/2014 Sivakumar Gómez MD TRIPLICATE F/U 53q03013-nwo0-27v9-11jv-0704555j20s6 11/05/19 15 11/05/2014 Sivakumar Gómez MD TRIPLICATE F/U 7421m15w-2u3j-20v6-x27r-96417x4r5ap8 11/05/19 15 11/05/2014 Sivakumar Gómez MD TRIPLICATE F/U pprevhmk-4b3v-09bt3b9b-21yw-h7m9-v6i544knpv89 11/05/19 15 11/05/2014 Sivakumar Gómez MD TRIPLICATE F/U rxe5s316-ux5u-4x85-d357-420yv368hc0u 11/05/19 15 11/05/2014 Sivakumar Gómez MD TRIPLICATE F/U w201947w-c62i-0d40-d125-53y1qe37109k 11/05/19 15 11/05/2014 Sivakumar Gómez MD TRIPLICATE F/U 78lo9q7s-fi02-5o22-v08w-5n31957282k4 11/05/19 15 11/05/2014 Sivakumar Gómez MD TRIPLICATE F/U f5jagzg9-lu41-5s41-3tgc-86r4570d08ed 11/05/19 15 11/05/2014 Sivakumar Gómez MD TRIPLICATE F/U r38up7n2-d10j-495e-40b7-6i226z128b78 11/05/19 15 11/05/2014 Sivakumar Gómez MD TRIPLICATE F/U 76in4008-84b0-74g5-5042-9s3b1i35q545 11/05/19 15 11/05/2014 Sivakumar Gómez MD TRIPLICATE F/U 5s330ppp-gu49-9923-lj2a-91405524k525 11/05/19 15 11/05/2014 Sivakumar Gómez MD TRIPLICATE F/U 74582nq4-v0u6-34v3-703o-6380642dfu21 11/05/19 15 11/05/2014 Sivakumar Gómez MD TRIPLICATE F/U 7w849er6-91kg-6310-v560-4t60f81021a6 11/05/19 15 11/05/2014 Sivakumar Gómez MD TRIPLICATE F/U 8l9yr4oo-gg0o-3586-15gt-82645e6kmnf3 11/05/19 15 11/05/2014 Sivakumar Gómez MD TRIPLICATE F/U 0f8qgq22-j478-25f2-3s76-f31218033840 11/05/19 15 11/05/2014 Sivakumar Gómez MD TRIPLICATE F/U 4p510p93-p1en-0359-w273-832441c231oo 11/05/19 15 11/05/2014 Sivakumar Gómez MD TRIPLICATE F/U r571697d-9e21-5hg2-6oe7-92n92jvv543m 11/05/19 15 11/05/2014 Sivakumar Gómez MD TRIPLICATE F/U t718r4hd-0l94-0fz5-98h6-1q29g3a7251f 11/05/19 15 11/05/2014 Sivakumar Gómez MD TRIPLICATE F/U s9715yum-556m-339c-sf09-q46602yn842x 11/05/19 15 11/05/2014 Sivakumar Gómez MD 1 mo f/u 223ssc80-n00c-3qtu-j29r-97r298i3dvx5 12/04/19 15 12/03/2014 Sivakumar Gómez MD 1 mo f/u 6u6ffvc5-e893-176c-p243-11074ba595wt 12/04/19 15 12/03/2014 Sivakumar Gómez MD 1 mo f/u 858518d2-856t-86l2-dw28-d78351ta8825 12/04/19 15 12/03/2014 Sivakumar Gómez MD 1 mo f/u h4177s4w-ii3n-8lw8-t7jz-8345uv324g1z 12/04/19 15 12/03/2014 Sivakumar Gómez MD 1 mo f/u 2lo03341-8011-1jlj-oz5o-z68n1l9t2t23 12/04/19 15 12/03/2014 Sivkaumar Gómez MD 1 mo f/u 675a30en-u768-9435-sy35-866dh071l90v 12/04/19 15 12/03/2014 Sivakumar Gómez MD 1 mo f/u z203807w-1sj9-9g51-sal4-s83x1k12545w 12/04/19 15 12/03/2014 Sivakumar Gómez MD 1 mo f/u 4v959r32-552d-9q3t-971n-c4sf2mm9nz20 12/04/19 15 12/03/2014 Sivakumar Gómez MD 1 mo f/u 0k874144-76t7-3691-2p66-3u219194121x 12/04/19 15 12/03/2014 Sivakumar Gómez MD 1 mo f/u 580nt0g8-45q6-54p1-b6r3-f3e21g526i74 12/04/19 15 12/03/2014 Sivakumar Gómez MD 1 mo f/u 6117u7v1-c716-0u38-8589-5r8g26gww1y8 12/04/19 15 12/03/2014 Sivakumar Gómez MD 1 mo f/u 2n527956-7365-3n6a-ds82-q60e22yt78pn 12/04/19 15 12/03/2014 Sivakumar Gómez MD 1 mo f/u 680g34e3-o4w9-3zv7-s8q1-653zt00ft484 12/04/19 15 12/03/2014 Sivakumar Gómez MD 1 mo f/u 4f17xzr4-65ms-22na-a84v-w95x46803gfr 12/04/19 15 12/03/2014 Sivakumar Gómez MD 1 mo f/u p21i2004-x0k1-591a-gt6u-tg26fa3h960g 12/04/19 15 12/03/2014 Sivakumar Gómez MD 1 mo f/u 5n8un46e-4j47-51b4-i82q-e5o7j0g7v7lj 12/04/19 15 12/03/2014 Sivakumar Gómez MD 1 mo f/u 5l953286-3r4u-3413-w84m-3i8x4zvu2152 12/04/19 15 12/03/2014 Sivakumar Gómez MD 1 mo f/u b675r00l-3f54-4m35-a1q2-0814a0u591pe 12/04/19 15 12/03/2014 Sivakumar Gómez MD Reclast refill s8c7t6i0-65dc-8b5z-o5uu-5y518fy0u5ef 12/04/19 15 12/03/2014 Sivakumar Gómez MD Reclast refill tr4999mj-i770-6y08-1bz8-dkf164d742sx 12/04/19 15 12/03/2014 Sivakumar Gómez MD Reclast refill azux4w38-340i-9087-p96k-6p365280976t 12/04/19 15 12/03/2014 Sivakumar Gómez MD Reclast refill 4j86g2tj-n464-56l2-z424-642kwezje5r1 12/04/19 15 12/03/2014 Sivakumar Gómez MD Reclast refill 67c7y9w4-w0r5-9s77-dq25-om88grc86s7z 12/04/19 15 12/03/2014 Sivakumar Gómez MD Reclast refill 10o5179n-366u-4e40-4180-s5wn54t1382o 12/04/19 15 12/03/2014 Sivakumar Gómez MD Reclast refill 2w25je6z-30z2-96k0-y9jy-4391219t3ovq 12/04/19 15 12/03/2014 Sivakumar Gómez MD Reclast refill t1v35ut8-n288-9e05-3n2u-71190bdw47rx 12/04/19 15 12/03/2014 Sivakumar Gómez MD Reclast refill z2q400j6-z635-586b-66v1-6gm261j0e576 12/04/19 15 12/03/2014 Sivakumar Gómez MD Reclast refill 1fx9966v-fs9v-14a5-80tn-73y1d348q672 12/04/19 15 12/03/2014 Sivakumar Gómez MD Reclast refill xp13s13n-j751-049x-907r-t313x2911910 12/04/19 15 12/03/2014 Sivakumar Gómez MD Reclast refill 7s46d4d7-8cq4-40g8-3k16-s5i3w8804909 12/04/19 15 12/03/2014 Sivakumar Gómez MD Reclast refill t9hx5a68-8277-104t-77k2-052dw3654p89 12/04/19 15 12/03/2014 Sivakumar Gómez MD Reclast refill 2awi6635-3183-21jg-44k8-72q75as56249 12/04/19 15 12/03/2014 Sivakumar Gómez MD Reclast refill 9w7185l8-q817-4mcp-110x-q493cgr37r80 12/04/19 15 12/03/2014 Sivakumar Gómez MD Reclast refill 24o6w2t4-0c38-5ep9-k454-57o24505181q 12/04/19 15 12/03/2014 Sivakumar Gómez MD Reclast refill 92x66u34-n309-0f23-utya-g32p3u09avw4 12/04/19 15 12/03/2014 Sivakumar Gómez MD Reclast refill xwq0zr8w-f1u9-56b1-82ce-n57r911hj569 12/04/19 15 12/03/2014 Sivakumar Gómez MD 1 mo f/u m21d6243-1p95-19v3-3242-8e8855904fzx 12/04/19 15 12/03/2014 Sivakumar Gómez MD 1 mo f/u g98c9ftd-24e7-22va-4348-ia78160x0509 12/04/19 15 12/03/2014 Sivakumar Gómez MD 1 mo f/u 45y5f3m8-9184-980c-0419-j5b700604604 12/04/19 15 12/03/2014 Sivakumar Gómez MD 1 mo f/u 5j57d9ax-ev5i-151r-m0j5-741464511i31 12/04/19 15 12/03/2014 Sivakumar Gómez MD 1 mo f/u 359k771j-fd33-6239-s18f-gni3943wj2l8 12/04/19 15 12/03/2014 Sivakumar Gómez MD 1 mo f/u x57e6964-294z-80b0-36ff-nf4h918mz219 12/04/19 15 12/03/2014 Sivakumar Gómez MD 1 mo f/u 224ez091-0gq1-8318-1um1-f98z610x3373 12/04/19 15 12/03/2014 Sivakumar Gómez MD Reclast refill 21n95817-2r38-9x96-5x2s-44552h8vdutq 12/04/19 15 12/03/2014 Sivakumar Gómez MD Reclast refill 4l6g9220-ko4z-83x1-52q2-8771b124y9ob 12/04/19 15 12/03/2014 Sivakumar Gómez MD Reclast refill 21ol8yb9-e64g-9151-7bx8-z8f354x7729q 12/04/19 15 12/03/2014 Sivakumar Gómez MD Reclast refill d4365mw0-86k3-2686-16io-10y0e6kur5qr 12/04/19 15 12/03/2014 Sivakumar Gómez MD Reclast refill 496811p4-0h4j-6250-j070-9074803276xs 12/04/19 15 12/03/2014 Sivakumar Gómez MD Reclast refill 03x98xl5-vh2k-15u0-v219-1490pvqhzm60 12/04/19 15 12/03/2014 Sivakumar Gómez MD Reclast refill fbll05hx-x1y1-306r-5903-w99l2h7190u6 12/04/19 15 12/03/2014 Sivakumar Gómez MD 1 mo f/u 43e763r2-d22l-798j-2838-4x573l753833 01/15/20 15 01/14/2015 Sivakumar Gómez MD 1 mo f/u 41iumy80-82hs-55fb-c2ht-v62121a39x4f 01/15/20 15 01/14/2015 Sivakumar Gómez MD 1 mo f/u n936p408-9w16-3676-is38-3wgg4z50xj3t 01/15/20 15 01/14/2015 Sivakumar Gómez MD 1 mo f/u l2l0pz62-559p-5vfk-4147-3678zu7vw06j 01/15/20 15 01/14/2015 Sivakumar Gómez MD 1 mo f/u ts4ue825-0u52-866d-ch05-28ap90j9g966 01/15/20 15 01/14/2015 Sivakumar Gómez MD 1 mo f/u y5j04v55-492l-0p26-8s4g-2q26951k7fog 01/15/20 15 01/14/2015 Sivakumar Gómez MD 1 mo f/u 0i8103s6-93qp-585a-vd38-09625xr52n25 01/15/20 15 01/14/2015 Sivakumar Gómez MD 1 mo f/u 47i2e2s2-238v-5652-pbq8-c99hzs608444 01/15/20 15 01/14/2015 Sivakumar Gómez MD 1 mo f/u yjl3c173-ra3p-449p-5191-2fh1dz48bhe6 01/15/20 15 01/14/2015 Sivakumar Gómez MD 1 mo f/u xd3h0ni9-72v5-8717-vl7o-44k378nvt9yc 01/15/20 15 01/14/2015 Sivakumar Gómez MD 1 mo f/u 32n6z120-oh53-04o8-tx7h-shbo8s57t8hy 01/15/20 15 01/14/2015 Sivakumar Gómez MD 1 mo f/u o62k5278-qrg1-1ur4-c4az-r93d306k0fp2 01/15/20 15 01/14/2015 Sivakumar Gómez MD 1 mo f/u k15e2186-91p4-1274-ir29-0450626a7022 01/15/20 15 01/14/2015 Sivakumar Gómez MD 1 mo f/u w99p2p32-8663-2002-2978-8274p23a6vn0 01/15/20 15 01/14/2015 Sivakumar Gómez MD 1 mo f/u 3i647367-x087-7lbn-zff8-8z2579w9a403 01/15/20 15 01/14/2015 Sivakumar Gómez MD 1 mo f/u 725805qb-195s-8097-a749-176o4y3i3uoc 01/15/20 15 01/14/2015 Sivakumar Gómez MD 1 mo f/u o6r7on3c-4p6y-62w3-3u1h-3kz4uz0w9740 01/15/20 15 01/14/2015 Sivakumar Gómez MD 1 mo f/u 8u48r0r9-76qe-31xh-7xm4-w3n17x6v2jg5 01/15/20 15 01/14/2015 Sivakumar Gómez MD 1 mo f/u s5moi369-5nj7-9626-1xhv-d8vkk93yc2l6 01/15/20 15 01/14/2015 Sivakumar Gómez MD 1 mo f/u 26wy259r-jja9-3g47-f6am-jm36av9s365b 01/15/20 15 01/14/2015 Sivakumar Gómez MD 1 mo f/u rpa12vj0-p28f-0129-p627-27o98hkykuk8 01/15/20 15 01/14/2015 Sivakumar Gómez MD MRI w4901p79-n890-0jey-z967-8018mxcz0040 01/18/2015 01/18/2015 Sivakumar Gómez MD MRI 8iv13dxb-yh9r-50ru-74xu-7wpe60466grq 01/18/2015 01/18/2015 Sivakumar Gómez MD MRI 822z095l-0709-4yeo-h123-07899l128300 01/18/2015 01/18/2015 Sivakumar Gómez MD MRI a95ajvm7-2dkw-8g0f-4273-gi828815r05j 01/18/2015 01/18/2015 Sivakumar Gómez MD MRI 6i81kvum-u29n-9b74-w1i6-pe301nn757t9 01/18/2015 01/18/2015 Sivakumar Gómez MD MRI n0ccfzuw-q0g9-7b62-wz65-w5167600m5u7 01/18/2015 01/18/2015 Sivakumar Gómez MD MRI j705j2dz-1178-5231-2317-f8e5e74ey4c6 01/18/2015 01/18/2015 Sivakumar Gómez MD MRI a8g878o2-7942-8464-576z-enz29r2u8279 01/18/2015 01/18/2015 Sivakumar Gómez MD MRI 1r5twf81-1o0q-55i4-813q-8j36ki8767v1 01/18/2015 01/18/2015 Sivakumar Gómez MD MRI 127tv69x-1xj2-7u36-axbp-200mwg85c38e 01/18/2015 01/18/2015 Sivakumar Gómez MD MRI 7e78mu68-00n5-9926-kb0r-x8bcaz5l235u 01/18/2015 01/18/2015 Sivakumar Gómez MD MRI 179i00aj-3n6f-877a-98p1-071yu1n7q56b 01/18/2015 01/18/2015 Sivakumar Gómez MD MRI 619546yr-2390-80ks-ki23-75u68i8166oi 01/18/2015 01/18/2015 Sivakumar Gómez MD MRI 85j819s9-4tz7-5hq6-37ai-0911zw92837s 01/18/2015 01/18/2015 Sivakumar Gómez MD MRI 9v104n68-8348-9ph8-363p-59w2h13f6647 01/18/2015 01/18/2015 Sivakumar Gómez MD MRI 03j812h1-1387-92x1-u00p-6z6l58awf1t1 01/18/2015 01/18/2015 Sivakumar Gómez MD [facility] kk2drw98-p756-3s66-5999-sn328w8jn71w 01/18/2015 01/18/2015 Sivakumar Gómez MD DEXA a092s82o-38q1-3qj7-338w-9u330712c70j 01/18/2015 01/18/2015 Sivakumar Gómez MD DEXA 43a56098-b703-9u03-s650-789l15211307 01/18/2015 01/18/2015 Sivakumar Gómez MD DEXA 2wnfjo99-eiv3-518i-aps9-89u003579sg9 01/18/2015 01/18/2015 Sivakumar Gómez MD DEXA u5v1j72z-9521-4974-5h6p-20602j585280 01/18/2015 01/18/2015 Sivakumar Gómez MD DEXA l79x1ztc-9uf3-98n1-mfv3-1b5qwwpa5v47 01/18/2015 01/18/2015 Sivakumar Gómez MD DEXA 16q292uz-65yp-52n1-ukop-90bm6s8gz9v6 01/18/2015 01/18/2015 Sivakumar Gómez MD DEXA -o264-793t-90uy-g3m9g2gjy88r 01/18/2015 01/18/2015 Sivakumar Gómez MD DEXA 606b7dx6-i07c-1s74-p76n-9626d43r2975 01/18/2015 01/18/2015 Sivakumar Gómez MD DEXA e936ch08-6523-7kl1-8if7-41890r0297n6 01/18/2015 01/18/2015 Sivakumar Gómez MD DEXA 7jufn0x4-107j-85vs-405u-702xihg56y09 01/18/2015 01/18/2015 Sivakumar Gómez MD DEXA ea7z8v90-0k0p-6e92-39r3-27dis6215393 01/18/2015 01/18/2015 Sivkaumar Gómez MD DEXA ezni8952-804b-57vt-woy7-1773u98b3zbd 01/18/2015 01/18/2015 Sivakumar Gómez MD DEXA 88t2089h-tt71-4123-swif-439dd74520tl 01/18/2015 01/18/2015 Sivakumar Gómez MD DEXA k3k35t95-8166-62cc-4j36-db8f626w5ef1 01/18/2015 01/18/2015 Sivakumar Gómez MD DEXA tac0616q-c232-70j9-869t-6k419aw62sz3 01/18/2015 01/18/2015 Sivakumar Gómez MD DEXA 966r36nk-4710-8199-74s4-2463c0tah835 01/18/2015 01/18/2015 Sivakumar Gómez MD DEXA 44y7rmj0-39om-288r-j095-9p1x0h26um6g 01/18/2015 01/18/2015 Sivakumar Gómez MD DEXA c04sz49b-3739-8w92-k053-94924w5v6n9k 01/18/2015 01/18/2015 Sivakumar Gómez MD MRI 6rj7z3ba-1173-9945-35x4-953ii2h66mlx 01/18/2015 01/18/2015 Sivakumar Gómez MD MRI 05m1051f-606u-91dn-e286-4l3p3qa23p90 01/18/2015 01/18/2015 Sivakumar Gómez MD MRI 77m32vx2-3g55-18ek-47mz-54wj4d8153l2 01/18/2015 01/18/2015 Sivakumar Gómez MD MRI c48s38j2-3y87-7598-l10o-3u8432i4236r 01/18/2015 01/18/2015 Sivakumar Gómez MD MRI fm92362c-7923-75ig-lx43-9z99243yd1x9 01/18/2015 01/18/2015 Sivakumar Gómez MD MRI c1y8hh2d-874c-0083-3g08-738c5g42m902 01/18/2015 01/18/2015 Sivakumar Gómez MD MRI 7fq487r7-6u27-8220-dt4u-9cqcx3bq2754 01/18/2015 01/18/2015 Sivakumar Gómez MD DEXA xf8avi5f-715s-99h4-pd39-zj19vd533801 01/18/2015 01/18/2015 Sivakumar Gómez MD DEXA 8a72rkx8-7zc1-922o-f4x0-60l6cyde664g 01/18/2015 01/18/2015 Sivakumar Gómez MD DEXA 0c395l6z-171g-2254-ri56-6uf905y60r54 01/18/2015 01/18/2015 Sivakumar Gómez MD DEXA tu9u2210-1932-39e2-q41s-941cttv291o5 01/18/2015 01/18/2015 Sivakumar Gómez MD DEXA 83210m1w-7h75-4dc1-8i28-8677xp5e6b40 01/18/2015 01/18/2015 Sivakumar Gómez MD DEXA o6749i12-i6za-71c4-7rp2-i75c66t4d12a 01/18/2015 01/18/2015 Sivakumar Gómez MD DEXA tl4045ss-6m92-6y72-wqs1-4803k59906vh 01/18/2015 01/18/2015 Sivakumar Gómez MD RECLAST SPP 7b878fvb-91go-2737-7108-8868u55510w0 02/11/20 15 02/10/2015 Sivakumar Gómez MD RECLAST SPP 9i7k4j97-6617-555a-7b74-xc8rt71e4947 02/11/20 15 02/10/2015 Sivakumar Gómez MD RECLAST SPP 7236296p-2n4y-8v73-1ji0-60443g157j64 02/11/20 15 02/10/2015 Sivakumar Gómez MD RECLAST SPP 6czu2170-b915-36c2-k5x6-86u8003c9t8r 02/11/20 15 02/10/2015 Sivakumar Gómez MD RECLAST SPP g0853527-37t6-043p-3sxo-x89098i4n8kd 02/11/20 15 02/10/2015 Sivakumar Gómez MD RECLAST SPP q42sx9v9-449c-3467-4274-3a175tqcw121 02/11/20 15 02/10/2015 Sivakumar Gómez MD RECLAST SPP 700x7851-6h76-0an9-cfex-pn6heh2876hz 02/11/20 15 02/10/2015 Sivakumar Gómez MD RECLAST SPP 2lv3m734-i991-6382-726d-9wvv6e4k4207 02/11/20 15 02/10/2015 Sivakumar Gómez MD RECLAST SPP jy47j201-10z0-5f38-af0d-q1o7w55x9t77 02/11/20 15 02/10/2015 Sivakumar Gómez MD RECLAST SPP u1232qq3-k700-0io1-694d-bvqpztg7801n 02/11/20 15 02/10/2015 Sivakumar Gómez MD RECLAST SPP 3397x8d8-h358-0w40-j085-z4g0x37r69z8 02/11/20 15 02/10/2015 Sivakumar Gómez MD RECLAST SPP 972i45ei-mi93-0568-55zy-ea68720t137h 02/11/20 15 02/10/2015 Sivakumar Gómez MD RECLAST SPP 89r332dl-14y8-88i8-ba1l-dy2s62724183 02/11/20 15 02/10/2015 Sivakumar Gómez MD RECLAST SPP e254ptf7-x3wv-1fe1-n159-n725ko2i45s7 02/11/20 15 02/10/2015 Sivakumar Gómez MD RECLAST SPP 3t97ce5u-o6v8-63j8-9199-wh5vsy735649 02/11/20 15 02/10/2015 Sivakumar Gómez MD RECLAST SPP 655xo456-7w77-1w01-vl63-971t5188s320 02/11/20 15 02/10/2015 Sivakumar Gómez MD RECLAST SPP 8b98119a-9c61-13a6-c914-6303691l6vk6 02/11/20 15 02/10/2015 Sivakumar Gómez MD RECLAST SPP r25m2j6l-70ee-721c-5f10-72788sl71cg4 02/11/20 15 02/10/2015 Sivakumar Gómez MD RECLAST SPP xp915t17-2293-76c6-7251-5d5vv1572ik4 02/11/20 15 02/10/2015 Sivakumar Gómez MD RECLAST SPP as3u2m62-4487-1z94-8a61-013633gm813u 02/11/20 15 02/10/2015 Sivakumar Gómez MD RECLAST SPP 83u6a20g-r78b-8384-3559-b29632379ot7 02/11/20 15 02/10/2015 Sivakumar Gómez MD RECLAST SPP 72c9h049-qx81-67wq-d061-o593672fgtn9 02/11/20 15 02/10/2015 Sivakumar Gómez MD RECLAST SPP 4n436me3-6gge-668h-ixw0-dw078z5lk0fa 02/11/20 15 02/10/2015 Sivakumar Gómez MD RECLAST SPP 7s7179ho-14w4-5mk9-3xlo-r5z3j6k86p74 02/11/20 15 02/10/2015 Sivakumar Gómez MD 1 mo f/u t9jdt3i6-s606-42i2-e700-oys0r6eac726 02/12/20 15 02/11/2015 Sivakumar Gómez MD 1 mo f/u 6of9276m-pb6g-466o-dc6v-p514g47c043w 02/12/20 15 02/11/2015 Sivakumar Gómez MD 1 mo f/u 62o4q820-1q3a-0706-j9d2-1v3du2y3t041 02/12/20 15 02/11/2015 Sivakumar Gómez MD 1 mo f/u az5s751r-9966-2668-d91n-t421o54hlrl6 02/12/20 15 02/11/2015 Sivakumar Gómez MD 1 mo f/u b9qtm3qm-ylx0-2b84-085z-ji25zy446t8d 02/12/20 15 02/11/2015 Sivakumar Gómez MD 1 mo f/u k98jxla7-kc71-4bq5-nbjb-5692d84g2862 02/12/20 15 02/11/2015 Sivakumar Gómez MD 1 mo f/u 66gr3hx4-8595-99ol-chx4-i78twhgpb0j6 02/12/20 15 02/11/2015 Sivakumar Gómez MD 1 mo f/u 92457437-3t54-50au-7787-e136f6gm3p32 02/12/20 15 02/11/2015 Sivakumar Gómez MD 1 mo f/u u596535r-h4h5-1207-p33r-u16nx7ex73my 02/12/20 15 02/11/2015 Sivakumar Gómez MD 1 mo f/u 1ym25he8-555b-487g-7246-q567439l8858 02/12/20 15 02/11/2015 Sivakumar Gómez MD 1 mo f/u dup5ph90-1i56-7963-u87i-40445apxbw5b 02/12/20 15 02/11/2015 Sivakumar Gómez MD 1 mo f/u cc41ns05-76e3-91vi-m330-90917zhs5c36 02/12/20 15 02/11/2015 Sivakumar Gómez MD 1 mo f/u 72pv8234-46ol-7139-t160-wd148i0l250w 02/12/20 15 02/11/2015 Sivakumar Gómez MD 1 mo f/u v0h7179h-s887-85f1-07u2-15043r9a1g2h 02/12/20 15 02/11/2015 Sivakumar Gómez MD 1 mo f/u r8d9uyiv-q832-1chk-jhev-6r107pun46bo 02/12/20 15 02/11/2015 Sivakumar Gómez MD 1 mo f/u 6we40552-1877-2299-48jb-n57k9651i020 02/12/20 15 02/11/2015 Sivakumar Gómez MD 1 mo f/u 4i37g616-6ucj-2of7-9d58-83r696e7279w 02/12/20 15 02/11/2015 Sivakumar Gómez MD 1 mo f/u 5fm55757-v428-287v-2eq6-2q3e53x8g9ys 02/12/20 15 02/11/2015 Sivakumar Gómez MD 1 mo f/u vzmwfyhg-666y-7yx44tp1-mw9k-f89931372bu3 02/12/20 15 02/11/2015 Sivakumar Gómez MD 1 mo f/u e80w5076-5392-57h9-4j07-tlg05sq3637y 02/12/20 15 02/11/2015 Sivakumar Gómez MD 1 mo f/u f04187o8-r9u9-0x93-lth8-u2ic302j797d 02/12/20 15 02/11/2015 Sivakumar Gómez MD Reclast 7e138176-2075-0b74-p28b-8h054e3pnqbw 02/12/20 15 02/11/2015 Sivakumar Gómez MD Reclast 84a3kn53-8539-5h59-638j-t81z5m42a8m9 02/12/20 15 02/11/2015 Sivakumar Gómez MD Reclast 3g299i22-i7hf-3971-b625-eg175m4y919a 02/12/20 15 02/11/2015 Sivakumar Gómez MD Reclast sh82a9f7-259n-7bf7-r193-f759zw767963 02/12/20 15 02/11/2015 Sivakumar Gómez MD Reclast o21j730f-264j-6132-7iip-10y90pxa0g65 02/12/20 15 02/11/2015 Sivakumar Gómez MD Reclast ua51d73j-32tb-3y6e-xdw8-814y22rvm83e 02/12/20 15 02/11/2015 Sivakumar Gómez MD Reclast 97zf7865-ok8l-7cr4-4pb5-spn81586v53w 02/12/20 15 02/11/2015 Sivakumar Gómez MD Reclast 2c6211d2-9u67-39fk-8553-z9cn44jfr1ed 02/12/20 15 02/11/2015 Sivakumar Gómez MD Reclast k23c2710-vv4m-60j0-1d8z-27ou475d021o 02/12/20 15 02/11/2015 Sivakumar Gómez MD Reclast d5rqub55-7649-552z-5b98-z41c0bfks020 02/12/20 15 02/11/2015 Sivakumar Gómez MD Reclast 5w6w9197-1oi4-24b6-l405-l618ps83s2z1 02/12/20 15 02/11/2015 Sivakumar Gómez MD Reclast 82cj99ae-gj4a-1577-hl05-98s22i56ri34 02/12/20 15 02/11/2015 Sivakumar Gómez MD Reclast 78u206s6-vn19-2j1q-i707-7ni7ou2ul3g0 02/12/20 15 02/11/2015 Sivakumar Gómez MD Reclast ws9h220j-73ca-53s0-28f9-8sn4kmqytw91 02/12/20 15 02/11/2015 Sivakumar Gómez MD Reclast 0io29y61-agma-8o46-1475-5ph48f524822 02/12/20 15 02/11/2015 Sivakumar Gómez MD Reclast 17tgl37w-n2s2-2v83-9324-b44v9lltabqt 02/12/20 15 02/11/2015 Sivakumar Gómez MD Reclast vbun533t-1810-132q-4o7x-w8g1sm47pzdo 02/12/20 15 02/11/2015 Sivakumar Gómez MD Reclast 13yd7l54-g2h7-3583-cw6t-6199g2zjv037 02/13/20 15 02/12/2015 Sivakumar Gómez MD Reclast tic2u64d-4014-4480-ai20-5v3a4i4fh331 02/13/20 15 02/12/2015 Sivakumar Gómez MD Reclast 63q3lt12-0etd-1021-4f63-26746al0f61o 02/13/20 15 02/12/2015 Sivakumar Gómez MD Reclast 03ko184f-625v-86oj-5r0l-13hwezp9080t 02/13/20 15 02/12/2015 Sivakumar Gómez MD Reclast 9zrlg52g-gr84-2379-72y7-22383754kx60 02/13/20 15 02/12/2015 Sivakumar Gómez MD Reclast 00bv3kx3-653z-42x2-b61n-oj7b62y21y2g 02/13/20 15 02/12/2015 Sivakumar Gómez MD Reclast s53ww5s7-5744-990r-sufk-5m877b8q1iey 02/13/20 15 02/12/2015 Sivakumar Gómez MD labs a15kj787-527b-36pe-85d1-4714836lh7i8 03/07/2015 03/07/2015 Sivakumra Gómez MD labs v3041gt0-2u23-9i23-4jiw-q7971p3j95yv 03/07/2015 03/07/2015 Sivakumar Gómez MD labs 4m219wgw-8955-6197-195y-017h6m3j8pj0 03/07/2015 03/07/2015 Sivakumar Gómez MD labs nmz514j9-iqf6-1k95-2691-479ycu2h312s 03/07/2015 03/07/2015 Sivakumar Gómez MD labs fu1e0433-0298-1f8z-x789-1n6059d9yz83 03/07/2015 03/07/2015 Sivakumar Gómez MD labs 7f5585vz-f997-2hpd-ep19-f09hp6a46910 03/07/2015 03/07/2015 Sivakumar Gómez MD labs 3y3g3j45-010v-3009-v109-i7lt8j4n55e7 03/07/2015 03/07/2015 Sivakumar Gómez MD labs 6n2v2f0s-50q6-6ld7-h8f9-380312l299a7 03/07/2015 03/07/2015 Sivakumar Gómez MD labs 666oev19-zz65-2cas-s040-0153hymqn885 03/07/2015 03/07/2015 Sivakumar Gómez MD labs 9105772u-k360-3g5q-2z7b-d2396kde304u 03/07/2015 03/07/2015 Sivakumar Gómez MD labs x5qb2438-8681-3i1y-ym47-2814bq3693ek 03/07/2015 03/07/2015 Sivakumar Gómez MD labs ez8uw4t7-5hh2-6001-m3u8-26e037w9ecyl 03/07/2015 03/07/2015 Sivakumar Gómez MD labs 937p6gu0-09at-315s-n930-i69plxdmg21t 03/07/2015 03/07/2015 Sivakumar Gómez MD labs 28x6o08r-14vo-4mo7-1z7n-o1q474mfa389 03/07/2015 03/07/2015 Sivakumar Gómez MD labs 6137b6rg-vodx-2mkw-56x3-28znb6f4bo71 03/07/2015 03/07/2015 Sivakumar Gómez MD labs h056299z-evb3-0v8g-481p-4p690nqwj619 03/07/2015 03/07/2015 Sivakumar Gómez MD labs 39c00t39-5s52-6aqk-02i6-13o530dy0h44 03/07/2015 03/07/2015 Sivakumar Gómez MD labs 16x4c891-8k3q-3k7c-2187-820d295q2126 03/07/2015 03/07/2015 Sivaukmar Gómez MD labs zb08ghq4-7zo6-02f8-2567-jsk5229igl72 03/07/2015 03/07/2015 Sivakumar Gómez MD labs 8qlr8s53-6024-7588-7qq2-35g2np10e264 03/07/2015 03/07/2015 Sivakumar Gómez MD labs 2bz69i12-o577-5242-87ae-m055686370u5 03/07/2015 03/07/2015 Sivakumar Gómez MD labs 27743390-87zl-345c-y282-73a24h249tus 03/07/2015 03/07/2015 Sivakumar Gómez MD labs jeg6o136-24si-17m4-9hb2-0g5x07okr510 03/07/2015 03/07/2015 Sivakumar Gómez MD labs q85d64ew-etp1-10m6-20b4-y2gbt1303g38 03/07/2015 03/07/2015 Sivakumar Gómez MD Labs 7xk4dfrf-3031-53q2-89wv-477d1f674m08 03/08/2015 03/08/2015 Sivakumar Gómez MD Labs x4f8h7dw-0111-88ix-k938-817y224h1smq 03/08/2015 03/08/2015 Sivakumar Gómez MD Labs 0kb837al-3u45-050e-5g06-1l58ov7j04qp 03/08/2015 03/08/2015 Sivakumar Gómez MD Labs b1hyaf47-pc7f-562o-c689-see636v49f81 03/08/2015 03/08/2015 Sivakumar Gómez MD Labs d53p1598-dnqr-4s2a-n5ds-8jae854okqpt 03/08/2015 03/08/2015 Sivakumar Gómez MD Labs e1h5f8g1-x85f-75p7-i40e-7r402t53dt37 03/08/2015 03/08/2015 Sivakumar Gómez MD Labs 120w3708-e2bn-24a3-hu76-5o7n8l20xd27 03/08/2015 03/08/2015 Sivakumar Gómez MD Labs h92d2c37-d232-6ije-985k-kj654imd2w0q 03/08/2015 03/08/2015 Sivakumar Gómez MD Labs 6h6337fa-6l55-2td5-1172-73g41l24jr82 03/08/2015 03/08/2015 Sivakumar Gómez MD Labs 7z0u372p-52u5-93a7-mw19-4l72eqf7094y 03/08/2015 03/08/2015 Sivakumar Gómez MD Labs n365y431-7w5m-7d2n-9471-8q676505e8co 03/08/2015 03/08/2015 Sivakumar Gómez MD Labs 55d592sg-2izo-7559-e11l-424e17z06y9l 03/08/2015 03/08/2015 Sivakumar Gómez MD Labs 683pv071-668k-9785-i0wm-11450xk4yb4d 03/08/2015 03/08/2015 Sivakumar Gómez MD Labs 6w6xc995-5jy5-7ix1-y03q-b216980nj7x7 03/08/2015 03/08/2015 Sivakumar Gómez MD Labs pl2w3x2r-g2k2-1ms1-e559-j288k6483c1l 03/08/2015 03/08/2015 Sivakumar Gómez MD Labs 148fjvue-9a49-986p5j40-532b-0p29-868t97420690 03/08/2015 03/08/2015 Sivakumar Gómez MD Labs xkyw379z-5661-6141-3313-158aiw992rb6 03/08/2015 03/08/2015 Sivakumar Gómez MD Labs z40g37lf-n6i1-5xd3-6zrf-n62x20776b73 03/08/2015 03/08/2015 Sivakumar Gómez MD Labs 6fl19pd4-2366-4c4c-slq0-84cb7x4489mz 03/08/2015 03/08/2015 Sivakumar Gómez MD Labs s629tb40-7402-98u4-68il-09akp05e3jcn 03/08/2015 03/08/2015 Sivakumar Gómez MD Labs l2fen8tt-l894-9e23-i13b-saa8l0g6b4d9 03/08/2015 03/08/2015 Sivakumar Gómez MD Labs 86bs2ae1-sz4d-0437-2rej-o2fxe007ov42 03/08/2015 03/08/2015 Sivakumar Gómez MD Labs [id number]x71 03/08/2015 03/08/2015 Sivakumar Gómez MD Labs 9596n9j6-8933-4757-804v-y40f9462o612 03/08/2015 03/08/2015 Sivakumar Gómez MD 1 mo f/u 58s052i2-59qr-5gd2-o277-9tk56lz2x0bq 03/14/20 15 03/14/2015 Sivakumar Gómez MD 1 mo f/u q46m841f-0p5j-44i8-636r-104v106yc521 03/14/20 15 03/14/2015 Sivakumar Gómez MD 1 mo f/u 116xduk6-c906-176p-y970-832pik119cm7 03/14/20 15 03/14/2015 Sivakumar Gómez MD 1 mo f/u 07k08wna-hary-6tqu-x839-917x582o32mg 03/14/20 15 03/14/2015 Sivakumar Gómez MD 1 mo f/u 88ey6xj8-q44r-4852-9069-gu2102728mv4 03/14/20 15 03/14/2015 Sivakumar Gómez MD 1 mo f/u t2056998-66r9-647z-ntr3-oqr5348f0573 03/14/20 15 03/14/2015 Sivakumar Gómez MD 1 mo f/u iorhmoq5-jnod-9631-k70p-xnfq3r39u056 03/14/20 15 03/14/2015 Sivakumar Gómez MD 1 mo f/u 6ugvbs03-98m1-0303-gj7r-691yp8cib2t1 03/14/20 15 03/14/2015 Sivakumar Gómez MD 1 mo f/u o437p950-k570-502c-7tr1-j25805631v0f 03/14/20 15 03/14/2015 Sivakumar Gómez MD 1 mo f/u oozw2op1-f28i-97qy-bj3s-4246t888u1m1 03/14/20 15 03/14/2015 Sivakumar Gómez MD 1 mo f/u 89lrdl71-nsv9-39qd-8361-63n2x898527e 03/14/20 15 03/14/2015 Sivakumar Gómez MD 1 mo f/u 8055u712-m9op-7q08-imzj-d847229r9085 03/14/20 15 03/14/2015 Sivakumar Gómez MD 1 mo f/u 7nt6le72-834y-7n06-qd84-31z2a6j4c56e 03/14/20 15 03/14/2015 Sivakumar Gómez MD 1 mo f/u 97o71460-mp29-3964-uk0i-5m9mz6ze754f 03/14/20 15 03/14/2015 Sivakumar Gómez MD 1 mo f/u 9c7v7q9k-h12p-3m5m-do52-9960f8pg9276 03/14/20 15 03/14/2015 Sivakumar Gómez MD 1 mo f/u f1889tj9-0n53-2d16-29sv-729484364362 03/14/20 15 03/14/2015 Sivakumar Gómez MD PEER TO PEER 513hw159-s6y4-1d6b-m1z0-455161r60w1t 03/14/20 15 03/14/2015 Sivakumar Gómez MD PEER TO PEER cokg2549-ok25-2724-0qo2-g7841d104f6a 03/14/20 15 03/14/2015 Sivakumar Gómez MD PEER TO PEER q65l39g6-0h4a-8349-e2ae-1asf7zr455ku 03/14/20 15 03/14/2015 Sivakumar Gómez MD PEER TO PEER 77x7ah83-tix7-0ff9-248s-g0u5zbg28dd2 03/14/20 15 03/14/2015 Sivakumar Gómez MD PEER TO PEER xx49p3q6-1596-0e7y-jts7-0v1i0073w0e7 03/14/20 15 03/14/2015 Sivakumar Gómez MD PEER TO PEER 2j0b0bc8-w3v2-1987-k8i8-xx9h58m5v83n 03/14/20 15 03/14/2015 Sivakumar Gómez MD PEER TO PEER r932x826-6y1d-28im-o142-u43tb9ff5qj4 03/14/20 15 03/14/2015 Sivakumar Gómez MD PEER TO PEER 93j6092s-8182-706x-7w62-h17175771440 03/14/20 15 03/14/2015 Sivakumar Gómez MD PEER TO PEER na6s7740-783i-61o3-v920-o49343l95h0g 03/14/20 15 03/14/2015 Sivakumar Gómez MD PEER TO PEER q3s6071p-y521-96ku-jad1-1crra58l25pl 03/14/20 15 03/14/2015 Sivakumar Gómez MD PEER TO PEER 95k60054-38lt-8t5k-7u15-11v9h5rj8690 03/14/20 15 03/14/2015 Sivakumar Gómez MD PEER TO PEER 366cs650-x14n-61nn-pa49-2cf0eu2zs4r3 03/14/20 15 03/14/2015 Sivakumar Gómez MD PEER TO PEER 9933dkae-vwzb-4666-8dda-v00u4ck6f673 03/14/20 15 03/14/2015 Sivakumar Gómez MD PEER TO PEER zw6eiy24-8778-57c1-5rrh-39747685862m 03/14/20 15 03/14/2015 Sivakumar Gómez MD PEER TO PEER 0dm47ysj-y755-8u46-vbf8-12w46x3di433 03/14/20 15 03/14/2015 Sivakumar Gómez MD PEER TO PEER 2cu04566-2616-3e16-4v25-1m8964e7l5y6 03/14/20 15 03/14/2015 Sivakumar Gómez MD PEER TO PEER y41216p9-011f-19ll-xn46-797ou0g94280 03/14/20 15 03/14/2015 Sivakumar Gómez MD 1 mo f/u 5z202tos-85kb-9q49-w5zj-q3d10985t5r7 03/14/20 15 03/14/2015 Sivakumar Gómez MD 1 mo f/u jq1027xa-780a-0r77-7803-8896018d2668 03/14/20 15 03/14/2015 Sivakumar Gómez MD 1 mo f/u taye8897-0ek1-8fe5-1eda-219xc0i58434 03/14/20 15 03/14/2015 Sivakumar Gómez MD 1 mo f/u 074u172o-60h3-54i9-k2xb-199d6sid348w 03/14/20 15 03/14/2015 Sivakumar Gómez MD 1 mo f/u 19b379kt-9be7-659a-lrpq-l5suto25469r 03/14/20 15 03/14/2015 Sivakumar Gómez MD 1 mo f/u f08bo889-j1c1-9079-x06u-w9k6pjz80285 03/14/20 15 03/14/2015 Sivakumar Gómez MD 1 mo f/u c12xjfw1-9918-273r-895l-6kk616368106 03/14/20 15 03/14/2015 Sivakumar Gómez MD PEER TO PEER 136s4515-qf83-72dy-0s42-l7a66w452j77 03/14/20 15 03/14/2015 Sivakumar Gómez MD PEER TO PEER 55668c69-2645-0646-p156-md128m7pk233 03/14/20 15 03/14/2015 Sivakumar Gómez MD PEER TO PEER 03nd2376-e8l6-2e2i-cy30-05777f1650o5 03/14/20 15 03/14/2015 Sivakumar Gómez MD PEER TO PEER vv22019k-y6r3-72l9-y705-4705a422x207 03/14/20 15 03/14/2015 Sivakumar Gómez MD PEER TO PEER 32085133-c374-97ur-9qli-9860134g34x2 03/14/20 15 03/14/2015 Sivakumar Gómez MD PEER TO PEER 9f39g452-0fns-11p3-74b3-93fg63j0o948 03/14/20 15 03/14/2015 Sivakumar Gómez MD PEER TO PEER k81837nx-iqo0-9brg-8u8z-51yde3u924p9 03/14/20 15 03/14/2015 Sivakumar Gómez MD MRI 7648qbj2-2l78-2t68-n3s1-ysh48tt2lo62 04/07/2015 04/07/2015 Sivakumar Gómez MD MRI 9z70w8o8-kcf7-1265-e023-53xlx0924xz1 04/07/2015 04/07/2015 Sivakumar Gómez MD MRI i774d360-1255-1076-e83x-63g4vjec90k4 04/07/2015 04/07/2015 Sivakumar Gómez MD MRI yzwa357n-vr85-7r8a-3i4l-u265e03ek0g4 04/07/2015 04/07/2015 Sivakumar Gómez MD MRI 934709i0-i373-3696-rr2s-8mfw3195o249 04/07/2015 04/07/2015 Sivakumar Gómez MD MRI 4b5n2385-49s4-7j7w-83b5-7z4e832u083v 04/07/2015 04/07/2015 Sivakumar Gómez MD MRI 6k63ve45-v504-2k69-s5hn-zm7ant6319uz 04/07/2015 04/07/2015 Sivakumar Gómez MD MRI 679ru0ie-3xwe-7750-sz5n-5gf078zr28au 04/07/2015 04/07/2015 Sivakumar Gómez MD MRI 836638g1-9x5u-2066-i400-242s07613r41 04/07/2015 04/07/2015 Sivakumar Gómez MD MRI 7r7noyt6-bh4t-44d8-b950-s9t4376l9y70 04/07/2015 04/07/2015 Sivakumar Gómez MD MRI 2x09t423-1w80-3i86-c024-p0e1mv56v8m2 04/07/2015 04/07/2015 Sivakumar Gómez MD MRI c893mn11-jz99-08e1-9c19-j1sx19b69qr3 04/07/2015 04/07/2015 Sivakumar Gómez MD MRI 46i11193-9870-9340-m366-t6c9hn2toc9f 04/07/2015 04/07/2015 Sivakumar Gómez MD MRI d6j1602q-3j12-2ixf-uu43-twu0rl1829wb 04/07/2015 04/07/2015 Sivakumar Gómez MD MRI 0205k351-171p-54cu-32u0-6873vd21ro21 04/07/2015 04/07/2015 Sivakumar Gómez MD MRI jg0630f1-h4a8-973j-xkk3-177463722w8e 04/07/2015 04/07/2015 Sivakumar Gómez MD MRI kfg804x1-g473-0wji-u5yf-5d3st65bu2a1 04/07/2015 04/07/2015 Sivakumar Gómez MD MRI 2972838w-6azr-2vx1-e013-m2h9jhejs085 04/07/2015 04/07/2015 Sivakumar Gómez MD MRI y8p9y0an-8793-9z41-s00f-4567a08m4993 04/07/2015 04/07/2015 Sivakumar Gómez MD MRI 88d2uc46-d122-1684-1779-j92h6x430e12 04/07/2015 04/07/2015 Sivakumar Gómez MD MRI rf12z448-gv4s-48nt-r395-2wi5e4db379g 04/07/2015 04/07/2015 Sivakumar Gómez MD MRI kb5583rf-n561-740m-816c-ua33894n7fi9 04/07/2015 04/07/2015 Sivakumar Gómez MD MRI en048653-aizr-7knt-7y0c-557909v3351x 04/07/2015 04/07/2015 Sivakumar Gómez MD MRI 1780f357-5038-6591-us25-1sqi574cxp65 04/07/2015 04/07/2015 Sivakumar Gómez MD refill 4vz99ek2-hrx4-39g8-05z2-34g1987720co 05/06/20 15 05/06/2015 Sivakumar Gómez MD refill 0sasf2d6-7lp2-4398-9d28-cm78j6bc4cqs 05/06/20 15 05/06/2015 Sivakumar Gómez MD refill t9dfi422-h0y2-1xa6-8r5e-30so00qz86m2 05/06/20 15 05/06/2015 Sivakumar Gómez MD refill 3q88y468-y9j4-4r9t-auo5-1m9o2ek027h8 05/06/20 15 05/06/2015 Sivakumar Gómez MD refill ua3154e4-r8i8-0c6d-8758-9227j006ex92 05/06/20 15 05/06/2015 Sivakumar Gómez MD refill 89qe4441-0ulz-8934-ph7u-7o5z802wtu0g 05/06/20 15 05/06/2015 Sivakumar Gómez MD refill 8xk93u4q-7y0z-336a-k81j-58059z7471c0 05/06/20 15 05/06/2015 Sivakumar Gómez MD refill 7952w7hn-s9bh-3o5h-99f1-67c5kw7ts2us 05/06/20 15 05/06/2015 Sivakumar Gómez MD refill 3juf2z35-7x00-1w68-q297-i719ph5i66wo 05/06/20 15 05/06/2015 Sivakumar Gómez MD refill 3ys0t719-5033-77j3-08h0-96364123t4vx 05/06/20 15 05/06/2015 Sivakumar Gómez MD refill 8a723596-f801-1882-86ve-u3r9r144x176 05/06/20 15 05/06/2015 Sivakumar Gómez MD refill 790f8p9f-ke62-9965-m57q-858k2ch0dwma 05/06/20 15 05/06/2015 Sivakumar Gómez MD refill q1bl1088-4344-853c-ryq4-6g264903c8zb 05/06/20 15 05/06/2015 Sivakumar Gómez MD refill 63220751-e8mb-114n-f844-28211506h4l8 05/06/20 15 05/06/2015 Sivakumar Gómez MD refill 70oojw4f-pd73-4h75-6512-k5b13b8z681d 05/06/20 15 05/06/2015 Sivakumar Gómez MD refill 1m63kar5-1g1l-9nwp-8x22-ws7bjr4iy68x 05/06/20 15 05/06/2015 Sivakumar Gómez MD refill 7a1k1026-t5k3-4979-4024-ms18mqvd5707 05/06/20 15 05/06/2015 Sivakumar Gómez MD refill 3794p42r-g29z-7cak-2975-421k58t5lo52 05/06/20 15 05/06/2015 Sivakumar Gómez MD refill 39xmb910-i75z-4d51-k0k3-8d428c5u3d74 05/06/20 15 05/06/2015 Sivakumar Gómez MD refill 29987047-us8w-7003-h77c-609gr98y78q7 05/06/20 15 05/06/2015 Sivakumar Gómez MD refill 8o6gt2c3-11ka-443h-e0n1-u993567415us 05/06/20 15 05/06/2015 Sivakumar Gómez MD refill j126458w-674a-53qv-ivd9-56sp1j29br0c 05/06/20 15 05/06/2015 Sivakumar Gómez MD MRI 4229r7i1-3957-08aa-v83r-s71w405jp763 05/09/2015 05/09/2015 Sivakumar Gómez MD MRI l79xd7z6-088h-07m1-2304-9qy2o903h7b9 05/09/2015 05/09/2015 Sivakumar Gómez MD MRI 88l4l2y1-r10l-5yu8-58hr-011n0d9xw59a 05/09/2015 05/09/2015 Sivakumar Gómez MD MRI 406d5152-84wa-7j51-n470-z693p1za0824 05/09/2015 05/09/2015 Sivakumar Gómez MD MRI 67000370-1b51-09o5-rf86-y3929xq90985 05/09/2015 05/09/2015 Sivakumar Gómez MD MRI 9q5a0950-v599-32rp-q2s1-668z9mbbs088 05/09/2015 05/09/2015 Sivakumar Gómez MD MRI 98b6vh9e-5k29-76s0-hl25-074n5a232017 05/09/2015 05/09/2015 Sivakumar Gómez MD MRI k1j867hy-f0w2-403o-305k-864c0431a6en 05/09/2015 05/09/2015 Sivakumar Gómez MD MRI k2tjozvp-7p1j-6lm7-u85h-77335rvu469u 05/09/2015 05/09/2015 Sivakumar Gómez MD MRI 94v39420-iunl-06y2-a8xl-8976n440f8hh 05/09/2015 05/09/2015 Sivakumar Gómez MD MRI 7918003b-62cy-9z18-7jd7-1vw0iyum1ua4 05/09/2015 05/09/2015 Sivakumar Gómez MD MRI vzc483r0-fm82-0zax-d89l-1we386x21vi7 05/09/2015 05/09/2015 Sivakumar Gómez MD MRI 33947q54-uxgg-2011-iw98-727934ly7c37 05/09/2015 05/09/2015 Sivakumar Gómez MD MRI 1jk08r2z-4256-4es0-c372-61z7p20w499b 05/09/2015 05/09/2015 Sivakumar Gómez MD MRI tzb36535-j5c8-054v-fh94-243589b58231 05/09/2015 05/09/2015 Sivakumar Gómez MD MRI 94irfy64-4d1g-9v41-h029-78v26rb171x3 05/09/2015 05/09/2015 Sivakumar Gómez MD MRI x366km1y-731e-209u-22k4-863nji1967b2 05/09/2015 05/09/2015 Sivakumar Gómez MD MRI iv842v99-1t4n-6hi6-j667-m2rtr365p8oy 05/09/2015 05/09/2015 Sivakumar Gómez MD MRI d6s165m5-9172-2982-0045-2mji84550005 05/09/2015 05/09/2015 Sivakumar Gómez MD MRI 59u8678u-07sh-3i9b-0z26-193vgre7972j 05/09/2015 05/09/2015 Sivakumar Gómez MD MRI 19i944k7-697z-5594-e42r-4q4791ms6j5c 05/09/2015 05/09/2015 Sivakumar Gómez MD MRI 146ww7i5-4902-915t-ec0u-fv9247i0d933 05/09/2015 05/09/2015 Sivakumar Gómez MD Add on 05/12 e23xd089-phyx-6194-swm9-h9tp53u9f5t0 05/09/2005/09/2015 Sivakumar Gómez MD Add on 05/12 233f4ohl-18z7-6m06-c4d6-96c77md3i7j2 05/09/20 15 05/09/2015 Sivakumar Gómez MD Add on 05/12 gj5ds9m6-6g4n-8165-y2e3-54r17emc0ao7 05/09/20 15 05/09/2015 Sivakumar Gómez MD Add on 05/12 3437r967-p4b9-1cm6-z002-b416v6c1266g 05/09/20 15 05/09/2015 Sivakumar Gómez MD Add on 05/12 96r24ot2-x77s-3z73-j02b-751i0cg29264 05/09/20 15 05/09/2015 Sivakumar Gómez MD Add on 05/12 rj693zr3-qg00-8d38-7c19-k17255he3a7u 05/09/20 15 05/09/2015 Sivakumar Gómez MD Add on 05/12 fz4pb1z9-h6u0-1c3n-o9p9-69i23eh4b5u6 05/09/20 15 05/09/2015 Sivakumar Gómez MD Add on 05/12 0h7f439p-g008-3283-fwr1-mj978p35u3w8 05/09/20 15 05/09/2015 Sivakumar Gómez MD Add on 05/12 q7fe8bz9-t218-1nn9-30ah-4k50nrt43x87 05/09/20 15 05/09/2015 Sivakumar Gómez MD Add on 05/12 b4jl34az-o457-8tyb-x89a-b03m199a525p 05/09/20 15 05/09/2015 Sivakumar Gómez MD Add on 05/12 15be45x8-9l18-7898-lx6r-ks351m66o631 05/09/20 15 05/09/2015 Sivakumar Gómez MD Add on 05/12 21936638-4677-2v50-rs49-3v2h7k30hvi3 05/09/20 15 05/09/2015 Sivakumar Gómez MD Add on 05/12 9u98mvm3-w698-361h-401f-9r67601vsr02 05/09/20 15 05/09/2015 Sivakumar Gómez MD Add on 05/12 2005s267-9y0z-6hl3-k49i-y41g89x72z2w 05/09/20 15 05/09/2015 Sivakumar Gómez MD Add on 05/12 90144o34-j0rz-2066-qg96-itf3873830cc 05/09/20 15 05/09/2015 Sivakumar Gómez MD Add on 05/12 88v052r9-xzq0-036h-v4u4-3x85v2ma5var 05/09/20 15 05/09/2015 Sivakumar Gómez MD Add on 05/12 19q0eel6-2646-16i7-03p1-4ke9m9vzq712 05/09/20 15 05/09/2015 Sivakumar Gómez MD Add on 05/12 y74b2u1l-6ez6-9801-5332-c7y8x8v00mvs 05/09/20 15 05/09/2015 Sivakumar Gómez MD Add on 05/12 v1289276-2obx-7jgd-64c0-011z141aqn9r 05/09/20 15 05/09/2015 Sivakumar Gómez MD Add on 05/12 o4653151-s0t2-2411-lhon-omyaqs5006rm 05/09/20 15 05/09/2015 Sivakumar Gómez MD Add on 05/12 12491827-1716-39ub-kdgj-n8l972097729 05/09/20 15 05/09/2015 Sivakumar Gómez MD Add on 05/12 7z1nsj9a-u361-9c9q-o3u5-83a3b23p9xb9 05/09/20 15 05/09/2015 Sivakumar Gómez MD PEER TO PEER 8ml38969-3o4l-4642-nn70-qzvw60660509 05/11/20 15 05/11/2015 Sivakumar Gómez MD PEER TO PEER 5s8n1m35-7474-0945-x80n-7yi5z03st8dt 05/11/20 15 05/11/2015 Sivakumar Gómez MD PEER TO PEER f2c15120-xp56-23e5-x0m4-s7843j03zi63 05/11/20 15 05/11/2015 Sivakumar Gómez MD PEER TO PEER 892n07b0-11b5-777n-ks0v-7578ru0x8g06 05/11/20 15 05/11/2015 Sivakumar Gómez MD PEER TO PEER to89jpq9-1355-3368-75xn-hnh950168gi9 05/11/20 15 05/11/2015 Sivakumar Gómez MD PEER TO PEER 1ta06s59-00m5-13x2-z022-y227o8k889g7 05/11/20 15 05/11/2015 Sivakumar Gómez MD PEER TO PEER 813813a1-2f0i-1ipq-u949-6390v4554p3g 05/11/20 15 05/11/2015 Sivakumar Gómez MD PEER TO PEER p16zf1sj-1q62-1i61-pz1s-nf1mie10491v 05/11/20 15 05/11/2015 Sivakumar Gómez MD PEER TO PEER 2f533270-j3lm-0529-4784-m82813693i07 05/11/20 15 05/11/2015 Sivakumar Gómez MD PEER TO PEER 0ce9d106-e55u-3w9g-m462-841s91650c8r 05/11/20 15 05/11/2015 Sivakumar Gómez MD PEER TO PEER lg9rs7d0-1952-8khv-7976-287p48c918uh 05/11/20 15 05/11/2015 Sivakumar Gómez MD PEER TO PEER 02ge71o5-o493-9238-96k0-5z174p771963 05/11/20 15 05/11/2015 Sivakumar Gómez MD PEER TO PEER 1274107p-8z1p-2jb4-y2ax-68f0we144do9 05/11/20 15 05/11/2015 Sivakumar Gómez MD PEER TO PEER 1i6n5n8h-r6v3-3696-o57o-507vhfadtar7 05/11/20 15 05/11/2015 Sivakumar Gómez MD PEER TO PEER qhs2sh31-ugg6-1114-cf3k-5o108a2y2h9e 05/11/20 15 05/11/2015 Sivakumar Gómez MD PEER TO PEER 43wv1154-u880-94r6-rbtj-u05wl1et18nd 05/11/20 15 05/11/2015 Sivakumar Gómez MD PEER TO PEER 4812x268-cc4v-14yk-8b63-7l07y474nr38 05/11/20 15 05/11/2015 Sivakumar Gómez MD PEER TO PEER dm7o37i4-589h-094q-4437-q0e16j22r79m 05/11/20 15 05/11/2015 Sivakumar Gómez MD PEER TO PEER 65ld4uz5-qdx9-8m67-s4a4-35svww8899k4 05/11/20 15 05/11/2015 Sivakumar Gómez MD PEER TO PEER t1b04689-4688-7gv3-g2g3-2pg9dep303w1 05/11/20 15 05/11/2015 Sivakumar Gómez MD PEER TO PEER 8899111a-7d39-5y53-d393-57353s252516 05/11/20 15 05/11/2015 Sivakumar Gómez MD PEER TO PEER 8a63mjb3-163k-8u12-ql3t-8827910697h7 05/11/20 15 05/11/2015 Sivakumar Gómez MD RX Request-- Tramadol 03kvn7k2-bf90-21j0-hji9-60b3q1n12955 05/16/2015 05/16/2015 Sivakumar Gómez MD RX Request-- Tramadol 1i27x6q8-zk7f-2y1x-n17v-634mk2rp20vi 05/16/2015 05/16/2015 Sivakumar Gómez MD RX Request-- Tramadol 6240j874-95t2-3vk0-kj41-45hfy04287s4 05/16/2015 05/16/2015 Sivakumar Gómez MD RX Request-- Tramadol 43r39662-8l7t-4h25-5n58-z33665w39145 05/16/2015 05/16/2015 Sivakumar Gómez MD RX Request-- Tramadol ma984n06-3ofk-1fvn-0k70-1c986d8vjec9 05/16/2015 05/16/2015 Sivakumar Gómez MD RX Request-- Tramadol 1lit36u7-v298-9f1h-9h81-6537085w035h 05/16/2015 05/16/2015 Sivakumar Gómez MD RX Request-- Tramadol kt0y97c2-85i0-1871-d805-5613mnd9l78d 05/16/2015 05/16/2015 Sivakumar Gómez MD RX Request-- Tramadol 7t31469f-7y8g-9w0x-59v5-gr0h381b837i 05/16/2015 05/16/2015 Sivakumar Gómez MD RX Request-- Tramadol co092mwy-548u-291a-95up-k83g0p697a98 05/16/2015 05/16/2015 Sivakumar Gómez MD RX Request-- Tramadol 594mghso-6cmw-85x415l7-78m4-628169tu4h8c 05/16/2015 05/16/2015 Sivakumar Gómez MD RX Request-- Tramadol e5yq2042-06f9-36op-ok72-01828h271775 05/16/2015 05/16/2015 Sivakumar Gómez MD RX Request-- Tramadol h2o452ln-9q43-2409-y009-663k4q95r0a1 05/16/2015 05/16/2015 Sivakumar Gómez MD RX Request-- Tramadol 0q6cs335-x895-5o3s-tx14-p017913uzsvr 05/16/2015 05/16/2015 Sivakumar Gómez MD RX Request-- Tramadol 11d85344-z487-0426-44i6-o6nk295h27e7 05/16/2015 05/16/2015 Sivakumar Gómez MD RX Request-- Tramadol 4j68uh8c-7385-67t3-952u-601248i7m889 05/16/2015 05/16/2015 Sivakumar Gómez MD RX Request-- Tramadol 19nb315v-3r2q-51jz-zuwa-2cx5v34758x7 05/16/2015 05/16/2015 Sivakumar Gómez MD RX Request-- Tramadol 00grgn2s-59c3-6902-080s-84q06z21qm29 05/16/2015 05/16/2015 Sivakumar Gómez MD RX Request-- Tramadol 6rb59h90-x6i7-124p-x6yc-29540c7z118q 05/16/2015 05/16/2015 Sivakumar Gómez MD RX Request-- Tramadol x2m71490-97w1-423i-tr3u-8jq3g45u609d 05/16/2015 05/16/2015 Sivakumar Gómez MD RX Request-- Tramadol ae6382x2-4764-0q4h-jlh9-67ghyk6il898 05/16/2015 05/16/2015 Sivakumar Gómez MD RX Request-- Tramadol 83u59u5x-57e0-3u30-9zrb-94p43f6e16w7 05/16/2015 05/16/2015 Sivakumar Gómez MD RX Request-- Tramadol o85j7ueo-t401-10pg-cu57-60p0j6ew2z2u 05/16/2015 05/16/2015 Sivakumar Gómez MD Balance 8728798q-6z94-6tw8-l12z-tlfx54t57rv9 05/18/20 15 05/18/2015 Sivakumar Gómez MD Balance 58iog9xl-350i-0652-050c-p434010q42r0 05/18/20 15 05/18/2015 Sivakumar Gómez MD Balance 1534ty18-65s1-7jmj-97o5-esmw10t75570 05/18/20 15 05/18/2015 Sivakumar Gómez MD Balance 08r64947-8429-83u1-j4qp-4tl4lb08r728 05/18/20 15 05/18/2015 Sivakumar Gómez MD Balance 6a6q9765-da15-5871-63wv-6s68m06sw8o6 05/18/20 15 05/18/2015 Sivakumar Gómez MD Balance 9h01289f-3261-179e-c73q-94gc9ndb22dr 05/18/20 15 05/18/2015 Sivakumar Gómez MD Balance 0hur97s6-3v63-08o3-8i7n-522g08728147 05/18/20 15 05/18/2015 Sivakumar Gómez MD Balance 9hg88mv7-41c1-80x1-z779-x1788b17xn97 05/18/20 15 05/18/2015 Sivakumar Gómez MD Balance 1l86826a-r358-7zzq-aq8s-l0ke44941d1m 05/18/20 15 05/18/2015 Sivakumar Gómez MD Balance u27315pv-512b-2004-0j88-fs73w233mja8 05/18/20 15 05/18/2015 Sivakumar Gómez MD Balance 57n6aj63-3519-4840-rk49-07s03tl896bc 05/18/20 15 05/18/2015 Sivakumar Gómez MD Balance fefo8048-j1hg-32rm-q302-l49r0j618q98 05/18/20 15 05/18/2015 Sivakumar Gómez MD Balance j6kyfa74-zq2a-8r57-t3t6-065d842mi007 05/18/20 15 05/18/2015 Sivakumar Gómez MD Balance s0929re8-0r4h-68vz-yr28-010d992hra9d 05/18/20 15 05/18/2015 Sivakumar Gómez MD 1 mo f/u 75l5569e-6n18-7lj2-0696-569c6u2551vr 05/18/20 15 05/18/2015 Sivakumar Gómez MD 1 mo f/u 3o85829w-9y29-153i-3129-3gly2b672h98 05/18/20 15 05/18/2015 Sivakumar Gómez MD 1 mo f/u x2849q37-12jt-5nz7-26g7-kc684476i2g5 05/18/20 15 05/18/2015 Sivakumar Gómez MD 1 mo f/u 8f4tze7q-z67o-7g38-z28a-bto473308d78 05/18/20 15 05/18/2015 Sivakumar Gómez MD 1 mo f/u 75197617-609m-8205-iw75-13092841919t 05/18/20 15 05/18/2015 Sivakumar Gómez MD 1 mo f/u 6h493s63-7hvu-8s02-x5zu-thkj914019o3 05/18/20 15 05/18/2015 Sivakumar Gómez MD 1 mo f/u b7kb32w3-fs51-820n-2ud3-m24008kyss1u 05/18/20 15 05/18/2015 Sivakumar Gómez MD 1 mo f/u b349747q-0571-2074-fl7z-h0s7iy545c9q 05/18/20 15 05/18/2015 Sivakumar Gómez MD 1 mo f/u 5v401510-k7ea-3jh8-fh2v-f3481o93x508 05/18/20 15 05/18/2015 Sivakumar Gómez MD 1 mo f/u 42c58f29-957u-91t7-5s1n-3082puu636hy 05/18/20 15 05/18/2015 Sivakumar Gómez MD 1 mo f/u 0ev217bu-4j3v-899p-w010-8td59y4n5114 05/18/20 15 05/18/2015 Sivakumar Gómez MD 1 mo f/u 3ptqo591-m3hl-5188-3h7p-0jfbjf699660 05/18/20 15 05/18/2015 Sivakumar Gómez MD Balance 97f5h31e-53i3-09ng-6387-0187pd180f3v 05/18/20 15 05/18/2015 Sivakumar Gómez MD Balance 63145x92-6356-848n-c8aw-j19ay2o05n88 05/18/20 15 05/18/2015 Sivakumar Gómez MD Balance wxu29676-w971-2ug3-7y75-0f486k36c03t 05/18/20 15 05/18/2015 Sivakumar Gómez MD Balance 6397671t-820u-80e6-e7f0-9278636hxv75 05/18/20 15 05/18/2015 Sivakumar Gómez MD Balance 2p8778e8-22h7-7547-0385-i8lx0z57i835 05/18/20 15 05/18/2015 Sivakumar Gómez MD Balance tv722ds6-t0c4-3v50-186y-1kjtt981751n 05/18/20 15 05/18/2015 Sivakumar Gómez MD Balance v2240977-0166-0ivs-8340-05m7318126kv 05/18/20 15 05/18/2015 Sivakumar Gómez MD 1 mo f/u 1095ya1z-2l69-2t2u-m2p0-741zzh45d71y 05/18/20 15 05/18/2015 Sivakumar Gómez MD 1 mo f/u m001747b-5z6y-2u12-a65l-5pq7n1i1689q 05/18/20 15 05/18/2015 Sivakumar Gómez MD 1 mo f/u 6j6dw3s4-7980-60a9-4ly9-d0708672o48p 05/18/20 15 05/18/2015 Sivakumar Gómez MD 1 mo f/u 65356004-4487-829d-7p48-39928tl71x4u 05/18/20 15 05/18/2015 Sivakumar Gómez MD 1 mo f/u dl951jnp-es0y-6sz2-o0n5-g67b62375f97 05/18/20 15 05/18/2015 Sivakumar Gómez MD 1 mo f/u 16b52875-l41c-8g4g-3329-3w19yj600423 05/18/20 15 05/18/2015 Sivakumar Gómez MD 1 mo f/u cdnb4186-j7ti-3135-50g1-l462835776k0 05/18/20 15 05/18/2015 Sivakumar Gómez MD FENTANYL REFILL 4a062lq0-0v81-35o5-dx9o-68l1r9s9gj13 06/17/20 15 06/17/2015 Sivakumar Gómez MD FENTANYL REFILL 7zd20d13-7s59-7t3w-x0r4-sb1m562w06j9 06/17/20 15 06/17/2015 Sivakumar Gómez MD FENTANYL REFILL 2v7whm55-8j37-9932-uakl-61l561e3um4z 06/17/20 15 06/17/2015 Sivakumar Gómez MD FENTANYL REFILL 7j00gux8-v112-477j-x339-146960s48108 06/17/20 15 06/17/2015 Sivakumar Gómez MD FENTANYL REFILL i8ty7g56-7yy0-724v-7292-0c143alg919x 06/17/20 15 06/17/2015 Sivakumar Gómez MD FENTANYL REFILL 12c13w4t-ula2-68ik-8359-3t433f7305hf 06/17/20 15 06/17/2015 Sivakumar Gómez MD FENTANYL REFILL 3k588y66-we5r-0d8j-q476-1ct18q06r590 06/17/20 15 06/17/2015 Sivakumar Gómez MD FENTANYL REFILL 09827i8t-ljk4-007e-wh77-61602o6vbzik 06/17/20 15 06/17/2015 Sivakumar Gómez MD FENTANYL REFILL 9y92348d-r137-89uf-60be-x7xp25t377s4 06/17/20 15 06/17/2015 Sivakumar Gómez MD FENTANYL REFILL 511d68hj-83j8-2i36-g6d5-1v2762mm8698 06/17/20 15 06/17/2015 Sivakumar Gómez MD FENTANYL REFILL 929c51x9-h799-89qv-42v9-2841y2179a43 06/17/20 15 06/17/2015 Sivakumar Gómez MD FENTANYL REFILL 92bax425-4a6k-34s6-0143-46n12k69p5i9 06/17/20 15 06/17/[address]'S # 26z46awl-o17u-7m26-84fd-3979l69312h1 06/17/20 15 06/17/[address]'S # 9el54o3t-a72v-5203-m206-q076q8kwx9ah 06/17/20 15 06/17/[address]'S # 19h4y76w-64d1-0b90-k486-54h14mx8x044 06/17/20 15 06/17/[address]'S # 51k0sh30-d756-1856-9279-98v43843ws32 06/17/20 15 06/17/[address]'S # r22s6e82-z6z3-3602-8028-0spv935p7572 06/17/20 15 06/17/[address]'S # add6g112-a043-85br-0n45-bf538is8teo6 06/17/20 15 06/17/[address]'S # 519a8011-es0s-4864-mf61-l9p438f157ip 06/17/20 15 06/17/[address]'S # 1422c891-280h-61r3-6229-z16c7315je0i 06/17/20 15 06/17/[address]'S # 2m52tnp5-j252-7679-at76-q09j2ds07t20 06/17/20 15 06/17/[address]'S # r3kw2y09-uv74-581s-gsu3-z05p0793l90c 06/17/20 15 06/17/[address]'S # 65342yl1-922o-3490-ne02-gx71g982nt0k 06/17/20 15 06/17/[address]'S # ux514d73-e432-1575-0m5l-k6619kjkn237 06/17/20 15 06/17/2015 Sivakumar Gómez MD FENTANYL REFILL i5q9qp08-992t-9y5g-239g-l46arp9f4326 06/17/20 15 06/17/2015 Sivakumar Gómez MD FENTANYL REFILL 0tj5f88m-7d0h-1592-8k1z-698e3k35po7s 06/17/20 15 06/17/2015 Sivakumar Gómez MD FENTANYL REFILL xr2i5fu4-o100-6c65-a062-442f526z4170 06/17/20 15 06/17/2015 Sivakumar Gómez MD FENTANYL REFILL 8b5hk522-244w-14k6-x4hg-p5797lj66u14 06/17/20 15 06/17/2015 Sivakumar Gómez MD FENTANYL REFILL c568pyx1-h118-0244-7q9q-x5v23kkx7z7h 06/17/20 15 06/17/2015 Sivakumar Gómez MD FENTANYL REFILL b3m84ic9-9h22-9735-2r8a-x54ki14885qv 06/17/20 15 06/17/2015 Sivakumar Gómez MD FENTANYL REFILL 8x822qq5-0v5j-266z-82aw-22id219g0wl2 06/17/20 15 06/17/[address]'S # 828bc95s-xe01-6z2k-8d33-bq370c12qlc8 06/17/20 15 06/17/[address]'S # y4z65483-77d0-705w-wm60-7003k9b01d99 06/17/20 15 06/17/[address]'S # 61i6a4xf-kc72-0u2t-plp0-k9j93q839525 06/17/20 15 06/17/[address]'S # c83gio2r-i1kg-1514-18v8-z9y868904pgm 06/17/20 15 06/17/[address]'S # 84h265fv-o5uu-842d-g0e0-3jss45b3ivs6 06/17/20 15 06/17/[address]'S # 66db536e-ggn3-3e68-w357-z7517r016470 06/17/20 15 06/17/[address]'S # 5xozu0q8-wo1a-89vn-v825-01ed4508l48z 06/17/20 15 06/17/2015 Sivakumar Gómez MD Unknown ln3973ic-857j-4v3r-01er-4928t9785952 07/27/20 15 07/27/2015 Sivakumar Gómez MD Unknown 29ul8468-9242-5121-d056-qow1szbtrh33 07/27/20 15 07/27/2015 Sivakumar Gómez MD Unknown [id number]-y30a-[id number] 07/27/20 15 07/27/2015 Sivakumar Gómez MD Unknown [id number]-45d2-2244-7965-2u2z9u137026 07/27/20 15 07/27/2015 Sivakumar Gómez MD Unknown pa4b93b8-36n3-690b-o0z2-0b9723snjy1p 07/27/20 15 07/27/2015 Sivakumar Gómez MD Unknown 79yj94di-s6a7-7nsg-6t21-q881g73lmq83 07/27/20 15 07/27/2015 Sivakumar Gómez MD Unknown k4yjwng6-43ga-64q6-f4k9-y19545g44lo8 07/27/20 15 07/27/2015 Sivakumar Gómez MD Unknown h0a778h1-gdc5-9zve-alh8-027vta7w3r67 07/27/20 15 07/27/2015 Sivakumar Gómez MD Unknown 6uve40e5-1q56-1677-k5b1-f1a3l99y0u30 07/27/20 15 07/27/2015 Sivakumar Gómez MD Unknown 6n33d1r9-08is-2126-r805-6v7571fy7u30 07/27/20 15 07/27/2015 Sivakumar Gómez MD Unknown tk2d10s8-3522-249t-ge1c-b688286x06l4 07/27/20 15 07/27/2015 Sivakumar Gómez MD Unknown [id number]-mg34-462q-r00w-316482985970 07/27/20 15 07/27/2015 Sivakumar Gómez MD Unknown [id number]-9101-18mk-e583-2pen74d6f4u1 07/27/20 15 07/27/2015 Sivakumar Gómez MD Unknown [id number]-n76k-8w5j-577e-3brx8246nh6i 07/27/20 15 07/27/2015 Sivakumar Gómez MD Unknown [id number]-414o-a76i-93njey77q6w8 07/27/20 15 07/27/2015 Sivakumar Gómez MD Unknown [id number] 07/27/20 15 07/27/2015 Sivakumar Gómez MD Unknown [id number] 07/27/20 15 07/27/2015 Sivakumar Gómez MD Unknown [id number] 07/27/20 15 07/27/2015 Sivakumar Gómez MD Unknown [id number] 07/27/20 15 07/27/2015 Sivakumar Gómez MD Unknown [id number] 07/27/20 15 07/27/2015 Sivakumar Gómez MD Unknown [id number] 07/27/20 15 07/27/2015 Sivakumar Gómez MD Unknown [id number] 07/27/20 15 07/27/2015 Sivakumar Gómez MD Unknown [id number] 07/27/20 15 07/27/2015 Sivakumar Gómez MD Unknown [id number] 07/27/20 15 07/27/2015 Sivakumar Gómez MD Unknown [id number] 07/27/20 15 07/27/2015 Sivakumar Gómez MD Unknown [id number] 07/27/20 15 07/27/2015 Sivakumar Gómez MD Unknown [id number] 07/27/20 15 07/27/2015 Sivakumar Gómez MD Unknown [id number] 07/27/20 15 07/27/2015 Sivakumar Gómez MD Unknown [id number] 07/27/20 15 07/27/2015 Sivakumar Gómez MD Unknown [id number] 07/27/20 15 07/27/2015 Sivakumar Gmóez MD Unknown [id number] 07/27/20 15 07/27/2015 Sivakumar Gómez MD Unknown [id number] 07/27/20 15 07/27/2015 Sivakumar Gómez MD Unknown [id number] 07/27/20 15 07/27/2015 Sivakumar Gómez MD Unknown [id number] 07/27/20 15 07/27/2015 Sivakumar Gómez MD Unknown [id number] 07/27/20 15 07/27/2015 Sivakumar Gómez MD Unknown [id number] 07/27/20 15 07/27/2015 Sivakumar Gómez MD Unknown [id number] 07/27/20 15 07/27/2015 Sivakumar Gómze MD Unknown [id number] 07/27/20 15 07/27/2015 Sivakumar Gómez MD Follow Up [id number] 08/24/20 15 08/24/2015 Sivakumar Gómez MD Follow Up [id number] 08/24/20 15 08/24/2015 Sivakumar Gómez MD Follow Up [id number] 08/24/20 15 08/24/2015 Sivakumar Gómez MD Follow Up [id number] 08/24/20 15 08/24/2015 Sivakumar Gómez MD Follow Up [id number] 08/24/20 15 08/24/2015 Sivakumar Gómez MD Follow Up [id number] 08/24/20 15 08/24/2015 Sivakumar Gómez MD Follow Up [id number] 08/24/20 15 08/24/2015 Sivakumar Gómez MD Follow Up [id number] 08/24/20 15 08/24/2015 Sivakumar Gómez MD Follow Up [id number] 08/24/20 15 08/24/2015 Sivakumar Gómez MD Follow Up [id number] 08/24/20 15 08/24/2015 Sivakumar Gómez MD Follow Up [id number] 08/24/20 15 08/24/2015 Sivakumar Gómez MD Follow Up [id number] 08/24/20 15 08/24/2015 Sivakumar Gómez MD Follow Up [id number] 08/24/20 15 08/24/2015 Sivakumar Gómez MD Follow Up [id number] 08/24/20 15 08/24/2015 Sivakumar Gómez MD Follow Up [id number] 08/24/20 15 08/24/2015 Sivakumar Gómez MD Follow Up [id number]-[id number] 08/24/20 15 08/24/2015 Sivakumar Gómez MD Follow Up [id number] 08/24/20 15 08/24/2015 Sivakumar Gómez MD Unknown [id number] 09/26/19 16 09/26/2015 Sivakumar Gómez MD Unknown [id number] 09/26/19 16 09/26/2015 Sivakumar Gómez MD Unknown [id number] 09/26/19 16 09/26/2015 Sivakumar Gómez MD Unknown [id number] 09/26/19 16 09/26/2015 Sivakumar Gómez MD Unknown [id number] 09/26/19 16 09/26/2015 Sivakumar Gómez MD Unknown [id number] 09/26/19 16 09/26/2015 Sivakumar Gómez MD Unknown [id number] 09/26/19 16 09/26/2015 Sivakumar Gómez MD Unknown [id number] 09/26/19 16 09/26/2015 Sivakumar Gómez MD Unknown [id number] 09/26/19 16 09/26/2015 Sivakumar Gómez MD Unknown [id number] 09/26/19 16 09/26/2015 Sivakumar Gómez MD Unknown [id number] 09/26/19 16 09/26/2015 Sivakumar Gómez MD Unknown [id number] 09/26/19 16 09/26/2015 Sivakumar Gómez MD Unknown [id number] 09/26/19 16 09/26/2015 Sivakumar Gómez MD Unknown [id number] 09/26/19 16 09/26/2015 Sivakumar Gómez MD Unknown [id number] 09/26/19 16 09/26/2015 Sivakumar Gómez MD Unknown [id number]-k7or-63a559a04l0m 09/26/19 16 09/26/2015 Sivakumar Gómez MD gel one [id number]-m9u4-319v81n7g5o2 10/17/19 16 10/17/2015 Sivakumar Gómez MD gel one [id number]-78u7-2657rji5913l 10/17/19 16 10/17/2015 Sivakumar Gómez MD gel one [id number]-[id number] 10/17/19 16 10/17/2015 Sivakumar Gómez MD gel one dn2p99jr-3667-6hdt-07uy-t53xgvnur5n3 10/17/19 16 10/17/2015 Sivakumar Gómez MD gel one smc987nh-6251-0q19-v783-qvtx07kp2n77 10/17/19 16 10/17/2015 Sivakumar Gómez MD gel one [id number]-4uj1-33q9-76816cr935m9 10/17/19 16 10/17/2015 Sivakumar Gómez MD gel one [id number]-7082-xb09-3lw811g71u22 10/17/19 16 10/17/2015 Sivakumar Gómez MD gel one [id number]-510b-2m52-zd05-r423ew5kb534 10/17/19 16 10/17/2015 Sivakumar Gómez MD gel one [id number]-2x88-sn6m-u9n817d2376y 10/17/19 16 10/17/2015 Sivakumar Gómez MD gel one 32yz7r45-04tx-73f9-uen1-wm071d5s98gs 10/17/19 16 10/17/2015 Sivakumar Gómez MD gel one [id number]-3087-44c2-r8ri-089cn3697pru 10/17/19 16 10/17/2015 Sivakumar Gómez MD gel one [id number]-8nw1-6340-5053-0fgw789gv2fn 10/17/19 16 10/17/2015 Sivakumar Gómez MD gel one [id number]-0k79-4286og349787 10/17/19 16 10/17/2015 Sivakumar Gómez MD gel one x64l09t0-t6ba-0910-k3d6-4c0506t86r52 10/17/19 16 10/17/2015 Sivakumar Gómez MD gel one qv066ay2-64l8-45r4-3b52-265ei1b98006 10/17/19 16 10/17/2015 Sivakumar Gómez MD Unknown [id number]-[id number] 10/31/19 16 10/31/2015 Sivakumar Gómez MD Unknown [id number]-dn30-386r-wg21-0c5ya4fy197n 10/31/19 16 10/31/2015 Sivakumar Gómez MD Unknown 05qjxl80-l708-02g1-2k42-45qcurt684q1 10/31/19 16 10/31/2015 Sivakumar Gómez MD Unknown [id number]-[id number] 10/31/19 16 10/31/2015 Sivakumar Gómez MD Unknown [id number]-65r4u33wt94b 10/31/19 16 10/31/2015 Sivakumar Gómez MD Unknown [id number] 10/31/19 16 10/31/2015 Sivakumar Gómez MD Unknown [id number]-dcjj-3fh8-539f-q2u927v7ou6d 10/31/19 16 10/31/2015 Sivakumar Gómez MD Unknown [id number] 10/31/19 16 10/31/2015 Sivakumar Gómez MD Unknown [id number]-[id number] 10/31/19 16 10/31/2015 Sivakumar Gómez MD Unknown [id number]-kaff-l92k48qky5to 10/31/19 16 10/31/2015 Sivakumar Gómez MD Unknown [id number] 10/31/19 16 10/31/2015 Sivakumar Gómez MD Unknown [id number] 10/31/19 16 10/31/2015 Sivakumar Gómez MD Unknown [id number]-l11svz9acv08 10/31/19 16 10/31/2015 Sivakumar Gómez MD Unknown [id number] 10/31/19 16 10/31/2015 Sivakumar Gómez MD 6wk follow up [id number] 02/06/20 16 02/06/2016 Sivakumar Gómez MD 6wk follow up [id number]-353cn76l78u9 02/06/20 16 02/06/2016 Sivakumar Gómez MD 6wk follow up [id number] 02/06/20 16 02/06/2016 Sivakumar Gómez MD 6wk follow up [id number]-0906-l64q0a8ira51 02/06/20 16 02/06/2016 Sivakumar Gómez MD 6wk follow up [id number] 02/06/20 16 02/06/2016 Sivakumar Gómez MD 6wk follow up [id number]-a978h2i20ye1 02/06/20 16 02/06/2016 Sivakumar Gómez MD 6wk follow up [id number] 02/06/20 16 02/06/2016 Sivakumar Gómez MD 6wk follow up [id number]-opk2-v30msy5a258m 02/06/20 16 02/06/2016 Sivakumar Gómez MD 6wk follow up [id number] 02/06/20 16 02/06/2016 Sivakumar Gómez MD 6wk follow up [id number]-w5az-5xe0-9g00-14w3v49m5gg1 02/06/20 16 02/06/2016 Sivakumar Gómez MD 6wk follow up [id number] 02/06/20 16 02/06/2016 Sivakumar Gómez MD 6wk follow up [id number]-[id number] 02/06/20 16 02/06/2016 Sivakumar Gómez MD Follow up [id number]-[id number] 02/06/20 16 02/06/2016 Sivakumar Gómez MD Follow up [id number] 02/06/20 16 02/06/2016 Sivakumar Gómez MD Follow up [id number]-1fyrtl4u3z08 02/06/20 16 02/06/2016 Sivakumar Gómez MD Follow up [id number] 02/06/20 16 02/06/2016 Sivakumar Gómez MD Follow up [id number]-2b96wxt9kg46 02/06/20 16 02/06/2016 Sivakumar Gómez MD Follow up [id number] 02/06/20 16 02/06/2016 Sivakumar Gómez MD Follow up [id number] 02/06/20 16 02/06/2016 Sivakumar Gómez MD Follow up [id number] 02/06/20 16 02/06/2016 Sivakumar Gómez MD Follow up [id number] 02/06/20 16 02/06/2016 Sivakumar Gómez MD Follow up [id number] 02/06/20 16 02/06/2016 Sivakumar Gómez MD Follow up [id number] 02/06/20 16 02/06/2016 Sivakumar Gómez MD Follow up [id number] 02/06/20 16 02/06/2016 Sivakumar Gómez MD Follow up [id number] 02/06/20 16 02/06/2016 Sivakumar Gómez MD Unknown [id number] 03/15/20 16 03/15/2016 Sivakumar Gómez MD Unknown [id number] 03/15/20 16 03/15/2016 Sivakumar Gómez MD Unknown [id number] 03/15/20 16 03/15/2016 Sivakumar Gómez MD Unknown [id number] 03/15/20 16 03/15/2016 Sivakumar Gómez MD Unknown [id number] 03/15/20 16 03/15/2016 Sivakumar Gmóez MD Unknown [id number] 03/15/20 16 03/15/2016 Sivakumar Gómez MD Unknown [id number] 03/15/20 16 03/15/2016 Sivakumar Gómez MD Unknown [id number] 03/15/20 16 03/15/2016 Sivakumar Gómez MD Unknown [id number] 03/15/20 16 03/15/2016 Sivakumar Gómez MD Unknown [id number] 03/15/20 16 03/15/2016 Sivakumar Gómez MD Unknown [id number] 03/15/20 16 03/15/2016 Sivakumar Gómez MD PREDNISONE REFILL [id number] 04/03/20 16 04/03/2016 Sivakumar Gómez MD PREDNISONE REFILL [id number] 04/03/20 16 04/03/2016 Sivakumar Gómez MD PREDNISONE REFILL [id number] 04/03/20 16 04/03/2016 Sivakumar Gómez MD PREDNISONE REFILL [id number] 04/03/20 16 04/03/2016 Sivakumar Gómez MD PREDNISONE REFILL [id number] 04/03/20 16 04/03/2016 Sivakumar Gómez MD PREDNISONE REFILL [id number] 04/03/20 16 04/03/2016 Sivakumar Gómez MD PREDNISONE REFILL [id number] 04/03/20 16 04/03/2016 Sivakumar Gómez MD PREDNISONE REFILL [id number] 04/03/20 16 04/03/2016 Sivakumar Gómez MD PREDNISONE REFILL [id number] 04/03/20 16 04/03/2016 Sivakumar Gómez MD LAB ORDER [id number] 04/03/20 16 04/03/2016 Sivakumar Gómez MD LAB ORDER [id number] 04/03/20 16 04/03/2016 Sivakumar Gómez MD LAB ORDER [id number] 04/03/20 16 04/03/2016 Sivakumar Gómez MD LAB ORDER [id number] 04/03/20 16 04/03/2016 Sivakumar Gómez MD LAB ORDER [id number] 04/03/20 16 04/03/2016 Sivakumar Gómez MD LAB ORDER [id number] 04/03/20 16 04/03/2016 Sivakumar Gómez MD LAB ORDER [id number] 04/03/20 16 04/03/2016 Sivakumar Gómez MD LAB ORDER [id number] 04/03/20 16 04/03/2016 Sivakumar Gómez MD PREDNISONE REFILL [id number] 04/03/20 16 04/03/2016 Sivakumar Gómez MD LAB ORDER [id number] 04/03/20 16 04/03/2016 Sivakumar Gómez MD Lab order [id number] 04/12/20 16 04/12/2016 Sivakumar Gómez MD Lab order [id number] 04/12/20 16 04/12/2016 Sivakumar Gómez MD Lab order [id number] 04/12/20 16 04/12/2016 Sivakumar Gómez MD Lab order [id number] 04/12/20 16 04/12/2016 Sivakumar Gómez MD Lab order [id number] 04/12/20 16 04/12/2016 Sivakumar Gómez MD Lab order [id number] 04/12/20 16 04/12/2016 Sivakumar Gómez MD Lab order [id number] 04/12/20 16 04/12/2016 Sivakumar Gómez MD Lab order [id number] 04/12/20 16 04/12/2016 Sivakumar Gómez MD Peer to Peer [id number] 04/30/20 16 04/30/2016 Sivakumar Gómez MD Peer to Peer [id number] 04/30/20 16 04/30/2016 Sivakumar Gómez MD Peer to Peer [id number] 04/30/20 16 04/30/2016 Sivakumar Gómez MD Peer to Peer [id number] 04/30/20 16 04/30/2016 Sivakumar Gómez MD Peer to Peer [id number] 04/30/20 16 04/30/2016 Sivakumar Gómez MD Peer to Peer [id number] 04/30/20 16 04/30/2016 Sivakumar Gómez MD Peer to Peer [id number] 04/30/20 16 04/30/2016 Sivakumar Gómez MD Unknown [id number] 05/07/20 16 05/07/2016 Sivakumar Gómez MD Unknown [id number] 05/07/20 16 05/07/2016 Sivakumar Gómez MD Unknown [id number] 05/07/20 16 05/07/2016 Sivakumar Gómez MD Unknown [id number] 05/07/20 16 05/07/2016 Sivakumar Gómez MD DEXA [id number] 05/11/2016 05/11/2016 Sivakumar Gómez MD DEXA [id number] 05/11/2016 05/11/2016 Sivakumar Gómez MD DEXA [id number] 05/11/2016 05/11/2016 Sivakumar Gómez MD DEXA [id number] 05/11/2016 05/11/2016 Sivakumar Gómez MD DEXA [id number] 05/11/2016 05/11/2016 Sivakumar Gómez MD DEXA [id number] 05/11/2016 05/11/2016 Sivakumar Gómez MD 3 mo f/u [id number] 05/17/20 16 05/17/2016 Sivakumar Gómez MD 3 mo f/u [id number] 05/17/20 16 05/17/2016 Sivakumar Gómez MD 3 mo f/u [id number] 05/17/20 16 05/17/2016 Sivakumar Gómez MD 3 mo f/u [id number] 05/17/20 16 05/17/2016 Sivakumar Gómez MD 3 mo f/u [id number] 05/17/20 16 05/17/2016 Sivakumar Gómez MD Infusions [id number] 06/20/20 16 06/20/2016 Sivakumar Gómez MD Infusions [id number] 06/20/20 16 06/20/2016 Sivakumar Gómez MD Infusions [id number] 06/20/20 16 06/20/2016 Sivakumar Gómez MD refills [id number] 11/04/19 17 11/04/2016 Sivakumar Gómez MD refills [id number] 11/04/19 17 11/04/2016 Sivakumar Gómez MD LEFT KNEE PAIN [id number] 11/29/19 17 11/28/2016 Sivakumar Gómez MD Unknown [id number] 12/01/19 17 11/30/2016 Sivakumar Gómez Procedures No Data Provided for This Section Assessment and Plan No Data Provided for This Section Plan of Care No Data Provided for This Section Social History Social History Date Source Social History ElementQualifiersDate Rep orted Illicit Drugs . none November 30, 2016 Diet: no. November 30, 2016 Tobacco Use: . Are you a:: never smoker November 30, 2016 Caffeine: yes. 1-5, cups/week November 30, 2016 Exercise: yes. walking November 30, 2016 Alcohol: no. 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
--- OUTSIDE RECORDS SUMMARY | 2020-08-02 21:53 | XMS REPORT | Continuity of Care Document ---
Author Author [facility] t Organization [facility] Address [address] [place] [address] Phone Unavailable Care Team Providers Care Body Engineer Name Role Phone Johnson MOORE, Joseph PCP Marco Antonio MOORE, Santhosh Attphys Tj MOORE, Suhail Pierce Attphys Mansoor MOORE, Ambika Ridley Attphys [phone] Jules ALTAMIRANO Attphys Unavailable AUDREY, FRANCISCA Attphys Unavailable AMBIKA VARGAS Attphys Unavailable Payers Payer Name Policy Type Policy Number Effective Date Expiration Date S karolyn [employer]/HMO BLUE [id number] 2017 00:00:00 Da Barrera MEDICAREMEDICARE PART A AND [id number]/09/2013-PresentISELA DOUGLASS [facility] [id number] 2014 00:00:00 Da Barrera Problems Condition Name Condition Details Condition Category Status Onset Date Resolution Date Last Treatment Date Treating Clinician Comments Source Closed displaced fracture of proximal phalanx of right little finger Closed displaced fracture of proximal phalanx of right little finger Disease Active 2020-03-07 00:00:00 Da Barrera Rotator cuff arthropathy of right shoulder Rotator cuf f arthropathy of right shoulder Disease Active 2020-03-03 00:00:00 Opal Barrera Closed fracture of multiple pubic rami Closed fracture of mu ltiple pubic rami Disease Active 2017-02-21 00:00:00 Da Barrera Allergies, Adverse Reactions, Alerts Allergy Name Allergy Type Status Severity Reaction(s) Onset Date Inacti ve Date Treating Clinician Comments Source Sulfa (Sulfonamide Antibiotics) DA Active MO 2019-10-21 00 :00:00 [facility] cimetidine DA Active SV 2019-10-21 00:00:00 [facility] Sulfa (Sulfonamide Antibiotics) DA Active MO 2019-05-04 00 :00:00 [facility] cimetidine DA Active SV 2019-05-04 00:00:00 [facility] Sulfa (Sulfonamide Antibiotics) Propensity to adverse reactions to drug Active Rash 2017-02-21 00:00:00 Shauna Barrera Cimetidine Propensity to adverse reactions to drug Active Diarrhea 2017-02-21 00:00:00 Da garcia Sulfa (Sulfonamide Antibiotics) DA Active U 2016-08-07 00 :00:00 [facility] cimetidine DA Active U 2016-08-07 00:00:00 [facility] Family History Family Member Diagnosis Comments Start Date Stop Date Source Natural mother Diabetes [facility] Social History Social Habit Start Date Stop Date Quantity Comments Source Sex Assigned At Opal hugginsarpan Barrera Tobacco use and exposure 2020-03-03 00:00:00 2020-03-03 00:00:00 Neal sandhu used Da Barrera Alcohol intake 2020-03-03 00:00:00 2020-03-03 00:00:00 Current non-drinker of alcohol (finding) Da Barrera Smoking Status Start Date Stop Date Source Never smoker Da garcia Medications Ordered Medication Name Filled Medication Name Start Date Stop Da te Current Medication? Ordering Clinician Indication Dosage Frequency Signature (SIG) Comments Components Source mirtazapine (REMERON KAREN-TAB) 30 MG disintegrating tablet 2020-03-03 08:56:02 Yes 30mg QD Take 30 mg by mouth nightly. Da Barrera omeprazole (PriLOSEC) 40 MG capsule 2020-03-03 08:56:02 Yes 40mg QD Take 40 mg by mouth daily. Da Barrera carvedilol (COREG) 12.5 MG tablet 2020-03-03 08:56:02 Yes 12.5mg Q.5D Take 12.5 mg by mouth 2 (two) times a day with meals. Da Barrera valACYclovir (VALTREX) 500 MG tablet 2020-03-03 08:56:02 Ye s 500mg Q.5D Take 500 mg by mouth 2 (two) times a day. Da Barrera LORAZepam (ATIVAN) 0.5 MG tablet 2020-03-03 08:56:02 Yes .5mg Q6H Take 0.5 mg by mouth every 6 (six) hours as needed for anxiety. Da Barrera ergocalciferol (VITAMIN D2) 50,000 unit capsule 2020-03-03 08:56 :02 Yes [id number] Q7D Take 50,000 Units by mouth once a week. Da Barrera aspirin (ECOTRIN) 81 MG enteric coated tablet 2020-03-03 08:56:0 2 Yes 81mg QD Take 81 mg by mouth daily. Shelli Barrera traMADol (ULTRAM) 50 mg tablet 2020-03-03 08:56:02 Yes 50mg Q6H Take 50 mg by mouth every 6 (six) hours as needed for moderate pain. Da Barrera fentaNYL (DURAGESIC) 75 mcg/hr 2020-03-03 08:56:02 Yes 1{patch} Q72H Place 1 patch on the skin every third day. Da Barrera fluticasone (FLONASE) 50 mcg/actuation nasal spray 2020-02 08:56:02 Yes 2{spray} QD 2 sprays by Each Nare route daily. Da Barrera baclofen (LIORESAL) 10 MG tablet 2020-03-03 08:56:02 Yes 10mg Q.[id number] Take 10 mg by mouth 3 (three) times a day. Da Barrera temazepam (RESTORIL) 7.5 MG capsule 2020-03-03 08:56:02 Yes 7.5mg QD Take 7.5 mg by mouth nightly as needed for sleep. Da Barrera metoprolol succinate XL (TOPROL-XL) 50 mg 24 hr tablet 2020-03-03 08:56:02 Yes 50mg QD Take 50 mg by mouth daily. Da Barrera apixaban (ELIQUIS) 2.5 mg tablet 2020-03-03 08:56:02 Yes Q.5D Take by mouth 2 (two) times a day. Da doyle furosemide (LASIX) 20 mg tablet 2020-03-03 08:56:02 Yes 20mg Q.5D Take 20 mg by mouth 2 (two) times a day. Isela Barrera levothyroxine (SYNTHROID, LEVOXYL) 88 mcg tablet 2020-03-03 08:47:21 Yes 88ug QD Take 88 mcg by mouth every morning. Da Barrera predniSONE (DELTASONE) 10 mg tablet 2020-03-03 08:47:21 Yes 10mg QD Take 10 mg by mouth daily. Da Barrera dimethyl fumarate 240 mg capsule,delayed release(/EC) 2017-01-02 00:00:00 Yes Da garcia Vital Signs Vital Name Observation Time Observation Value Comments Source Body height 2020-03-03 08:47:00 162.6 cm Da Barrera Body weight 2020-03-03 08:47:00 48.988 kg Da Barrera BMI 2020-03-03 08:47:00 18.54 kg/m2 Da Barrera Procedures Procedure Date / Time Performed Performing Clinician Sourc e XR SHOULDER 2+ VW RIGHT 2020-03-03 09:25:39 Stan Andrew [place] ARTHROCENTESIS ASPIR&/INJ MAJOR JT/BURSA W/O 2020-02-22 1 09:00:00 Stna Andrew XR FINGER 2+ VW RIGHT 2020-03-02 15:39:16 Keyana Palencia XR UPPER EXTREMITY EXTERNAL STUDY 2020-02-27 15:27:34 Angel Palencia XR UPPER EXTREMITY EXTERNAL STUDY 2020-02-27 15:27:04 Angel Palencia XR UPPER EXTREMITY EXTERNAL STUDY 2020-02-27 15:26:44 Angel Palencia Plan of Care Planned Activity Planned Date Details Comments Source Future Scheduled Test 2021-06-06 00:00:00 BREAST CANCER SCRE ENING [code = BREAST CANCER SCREENING] Da Barrera Future Scheduled Test 2020-04-23 00:00:00 INFLUENZA VACCINE [code = INFLUENZA VACCINE] Da Barrera Future Scheduled Test 2014 00:00:00 65+ PNEUMOCOCCAL V ACCINE (1 of 1 - PPSV23) [code = 65+ PNEUMOCOCCAL VACCINE (1 of - PPSV23)] Da Barrera Future Scheduled Test 1999 00:00:00 COLONOSCOPY SCREEN ING [code = COLONOSCOPY SCREENING] Da Barrera Future Scheduled Test 1999 00:00:00 SHINGLES VACCINES (#1) [code = SHINGLES VACCINES (#1)] Da Barrera Encounters Start Date/Time End Date/Time En[facility] Source 2020-06-02 00:00:00 2020-06-02 00:00:00 Telephone Josephine Bernard [facility] [id number] 2020-04-18 06:58:13 2020-04-18 07:13:13 Telemedicine Visit Santhosh Bernard [facility] [id number] 2020-03-03 00:00:00 2020-03-03 00:00:00 Outpatient BALJIT ANDREW [facility] [id number] [facility] 2020-03-03 00:00:00 2020-03-03 00:00:00 Outpatient BALJIT ANDREW [facility] [id number] [facility] 2020-03-02 00:00:00 2020-03-02 00:00:00 Outpatient SHELLI PALENCIA [facility] [id number] [facility] 2020-03-02 00:00:00 2020-03-02 00:00:00 Outpatient SHELLI PALENCIA [facility] [id number] [facility] 2020-03-02 00:00:00 2020-03-02 00:00:00 Outpatient SHELLI PALENCIA [facility] [id number] [facility] 2020-03-02 00:00:00 2020-03-02 00:00:00 Outpatient SHELLI PALENCIA [facility] [id number] [facility] 2020-03-02 00:00:00 2020-03-02 00:00:00 Outpatient SHELLI PALENCIA [facility] [id number] [facility] Results Test Description Test Time Test Comments Results Result Comments Source Large Joint Arthrocentesis: shoulder, R glenohumeral 2020-03-03 09:00:00 Stan Andrew MD 03/03/2020 9:46 AMLarge Joint Arthrocentesis: shoulder, R glenohumeralConsent given by: patientSupporting DocumentationIndications: pain Procedure DetailsLocation: shoulder - R glenohumeral Right side:Approach: posteriorRight shoulder medications administered: 80 mg methylPREDNISolone acetate 40 mg/mL; 3 mL lidocaine 10 mg/mL (1 %) [place] [facility] XR Upper Extremity External Study 2020-03-02 15:27:46 This exam was not acquired at a [facility] facility and has not been interpreted by a [facility] Provider. The exam was imported into our imaging system. [facility] - CT CHEST W/O CONTRAST 2020-02-12 09:51:00 FAX : Kofi Briones [phone] [place]: St: REG FAX: Joseph Ca MD [phone] Name: LEONOR VELIZ Jules [facility] : 1950 Age/S: 69/F [address] Unit: [id number] Loc: [place] [address] Phys: Kofi Bean MD Acct: [id number] Dis Date: Status: REG CLI PHONE #: [phone] Exam Date: 02/12/2020 1001 FAX #: [phone] Reason: SOLITARY PULMONARY NODULE EXAMS: CPT CODE: [id number] CT CHEST W/O CONTRAST 33938 EXAM: - CT CHEST W/O CONTRAST HISTORY: SOLITARY PULMONARY NODULE Location code:C3 TECHNIQUE: Axial tomograms through the chest were obtained without intravenous contrast. Coronal and sagittal reformatted images are provided. Automated exposure reduction (Auto mA/Smart mA) was utilized in compliance with ACR Image Wisely with DLP of 75 mGy-cm. COMPARISON: 10/22/2019 and 10/21/2019 FINDINGS: LUNGS: Noncalcified pulmonary nodule in the left upper lobe on series 3 image 26 measuring 10 mm in average dimension has not significantly changed. Dependent atelectasis is present without acute consolidation. PLEURA: No pleural effusion or pneumothorax. VASCULATURE: Vascular calcifications involve the aorta and coronary arteries without thoracic aortic aneurysm. TRACHEOBRONCHIAL TREE: The trachea and lobar bronchi are unremarkable. LYMPHATICS: There is no gross adenopathy accounting for lack of intravenous contrast. VISUALIZED ABDOMEN: Cholecystectomy clips are present. BONES: Compression fracture at T9 is unchanged. Sclerosis about the mid sternal body is unchanged since 2019. There are healing left left 3rd through 5th rib fractures. Advanced degenerative features involve the shoulders right greater than left. SOFT TISSUES: Unremarkable. OTHER: No significant additional findings. IMPRESSION: PAGE 1 Signed Report (CONTINUED) FAX: Kofi Briones [phone] [place]: St: REG FAX: Joseph Ca MD [phone] Name: LEONOR VELIZ [facility] : 1950 Age/S: 69/F [address] Unit: [id number] Loc: [place] [address] Phys: Kofi Bean MD Acct: [id number] Dis Date: Status: REG CLI PHONE #: [phone] Exam Date: 02/12/2020 1001 FAX #: [phone] Reason: SOLITARY PULMONARY NODULE EXAMS: CPT CODE: [id number] CT CHEST W/O CONTRAST 16257 <Continued> 1. Unchanged left upper lobe pulmonary nodule with 10 mm average dimension. 2. Healing left-sided rib fractures with other chronic findings as above. at 0951 Reported and signed by: Catrachito Liu MD CC: Kofi Bean MD; Joseph Ornelas MD Technologist: Melvina Rmaos Trnscrd Dt/Tm: 02/12/2020 (0951) [email or web address] Orig Print D/T: S: 02/12/2020 (1001 PAGE 2 Signed Report MRI SPINE LUMBAR WO 2020-01-29 15:18:00 [place] [address] Patient Name: LEONOR VELIZ MR #: [id number] : 1950 Age/Sex: 69/F Req #: [id number] Adm Physician: Ordered by: HELEN ALTAMIRANO Report #: [id number] Location: MRI Room/Bed: Procedure: [id number] MRI/MRI SPINE LUMBAR WO Exam Date: Exam Time: REPORT STATUS: Signed Exam: Lumbar spine MRI without IV contrast History: MS, lumbar radiculopathy Comparison studies: Lumbar spine MRI 11/11/2017. Technique: Sagittal and axial T2, sagittal T1 and sagittal STIR. Intravenous contrast: None Findings: Number of lumbar vertebr al bodies: 5. Alignment: Lumbar levocurvature centered at L3-L4, reversal the usual lumbar lordosis at L4-L5. Minimal grade 1 anterolisthesis of L2 on L3 and L4 and L5 are unchanged. Soft tissues: Chronic postsurgical changes in the dorsal lumbar soft tissues. Paraspinal muscles: Symmetric fatty-replaced atrophy atrophic changes near the lumbosacral junction. Lower thoracic cord: Normal in signal and morphology. The tip of the conus is at L1. Cauda equina: No masses. No arachnoiditis. Vertebrae: Postsurgical changes of prior posterior instrumented fusion and discectomy with disc spacer in place at L3-L4 as well as laminectomies at L3-L4 and L4-L5. A chronic superior endplate depression deformity with mild height loss is unchanged. No acute compression fracture. No infection or neoplasm. Degenerative changes: L1-L2: Patent canal and foramina. No disc herniation. L2-L3: Moderately degenerated disc with degenerative endplate changes without endplate edema.. Grade 1 anterolisthesis of L2 on L3 with associated uncovered disc/disc bulge, thickened ligamentum flavum and facet arthrosis with mild to moderate canal stenosis, bilateral subarticular recess stenosis with potential impingement on the bilateral L3 subarticular nerve roots and severe right and mild left foraminal stenosis. L3-L4: Surgical level. No significant canal or foraminal stenosis. L4-L5: Severely degenerated disc with near complete loss of disc height as well as degenerative endplate changes without endplate edema. Minimal anterolisthesis of L4 on L5 with associated disc/disc bulge asymmetric to the right with new superimposed 12 mm x 8 mm x 13 mm (SI x AP x TV) central disc extrusion result in moderate canal stenosis despite prior laminectomies. Disc herniation impinges on the left L5 nerve root and abuts the descending right S1 nerve root. Disc bulge and thickened ligamentum flavum on the right above the right L5 nerve root. Disc bulge and facet arthrosis result in mild right foraminal stenosis. Patent left foramen. L5-S1: Moderately degenerated disc asymmetrically greater on the left where there are degenerative endplate changes without endplate edema. Asymmetric left disc osteophyte complex and facet arthrosis result in severe left foraminal stenosis. Additional findings: A T2 hyperintense right inferior pole renal lesion is most likely a cyst. IMPRESSION: 1. New L4-L5 disc extrusion impinges on the left L5 nerve root and contributes to moderate canal stenosis despite prior l aminectomies at this level. Right L4-L5 subarticular recess also narrowed and disc abuts the right L5 and S1 nerve roots. 2. No other significant changes from the prior lumbar spine MRI of 11/11/2017. 3. Prior posterior L3-L4 fusion and discectomy and laminectomies at L3-L4 and at L4-L5. 4. Degenerative changes with unchanged multilevel disc degeneration, mild to moderate canal stenosis and bilateral subarticular recess stenosis at L2-L3 and severe foraminal stenosis on the right at L2-L3 and on the left at L5-S1. Signed by: Dr. Grzegorz Oneill M.D. on 01/29/2020 4:01 PM Dictated By: GRZEGORZ ONEILL MD 00 Transcribed By: TERESE on 01/29/201600 COPY TO: HELEN ALTAMIRANO MRI SPINE THORACIC WO 2020-01-29 15:03:00 [place] [address] Patient Name: LEONOR VELIZ MR #: [id number] : 1950 Age/Sex: 69/F Req #: [id number] Adm Physician: Ordered by: HELEN ALTAMIRANO Report #: [id number] Location: MRI Room/Bed: Procedure: [id number] MRI/MRI SPINE THORACIC WO Exam Date: Exam Time: REPORT STATUS: Signed Thoracic spine MRI without IV contrast History: MS, lumbar radiculopathy Comparison studies: Thoracic spine MRI of 01/02/2014 Technique: Sagittal T1, T2 and STIR without contrast; axial and coronal T2. Findings: Several pulse sequences are somewhat limited alfreda facts related to patient motion. Spinal limitations: Curvature: Mild increased kyphosis at T9 secondary to chronic compression fracture. Paraspinal soft tissues: No T2 hyperintense inflammatory changes. Spinal cord: The spinal cord is normal in size and grossly normal in signal intensity through the tip of the conus at L1. Vertebrae: Chronic T9 compression fracture with approximate 70% height loss with minimal retropulsion which results in mild canal stenosis, unchanged. No acute compression fracture, infection, neoplasm or marrow edema. Degenerative changes: Mild multilevel disc degeneration. Small paracentral disc protrusion at T2-T3 and small disc bulges at T5-T6, T6-T7 and T7-T8 do not result significant canal stenosis. Retropulsed T8 vertebral body with disc osteophyte complex results in mild canal stenosis at T7-T8. Mild foraminal stenosis on the left T8-T9 due to disc ossify complex and facet arthrosis. Mild foraminal stenosis bilaterally at T9-T10 and on the left at T10-T11 due to facet arthrosis. IMPRESSION: 1. No significant changes from the prior lumbar spine MRI of 01/02/2014. 2. No gross cord signal abnormalities to indicate demyelinating disease. 3. Unchanged chronic T9 vertebral body compression fracture with 70% height loss and minimal retropulsion which results in mild canal stenosis. No new compression fracture. 4. Mild multilevel degenerative changes as described. Signed by: Dr. Grzegorz Oneill M.D. on 01/29/2020 3:18 PM Dictated By: GRZEGORZ ONEILL MD 17 Transcribed By: TERESE on 01/29/201517 COPY TO: HELEN ALTAMIRANO MRI SPINE CERVICAL WO 2020-01-29 14:45:00 [place] [address] Patient Name: LEONOR VELIZ MR #: [id number] : 1950 Age/Sex: 69/F Req #: [id number] Adm Physician: Ordered by: HELEN ALTAMIRANO Report #: [id number] Location: MRI Room/Bed: Procedure: [id number] MRI/MRI SPINE CERVICAL WO Exam Date: Exam Time: REPORT STATUS: Signed History: Multiple sclerosis, lumbar radiculopathy. Comparison studies: Cervical spine MRI 10/14/2017. Technique: Sagittal T1, T2 and IR, axial T2 and axial gradient echo Intravenous contrast: None Findings: Alignment: Normal lordosis. No scoliosis. Cervicomedullary junction: No abnormalities. Patent foramen magnum. Soft tissues: No T2 hyperintense inflammatory changes. Spinal cord: No gross cord signal abnormality from the foramen magnum through T1. Vertebrae: Changes of prior anterior cervical discectomy and fusion from C4 to C7. Hardware remains in place at C4-C5 and has been removed at C6-C7. Solid interbody fusion present at C4-C5 and at C6-C7. Degenerative changes: C2-C3: Mildly degenerated disc. Small disc osteophyte complex does not result in significant canal stenosis. Patent neural foramina. C3-C4: Mildly degenerated disc. Small asymmetric right disc osteophyte complex does not result significant canal stenosis. No significant foraminal stenosis. C4-C5: Fused level. No significant canal or foraminal stenosis. C5-C6: Small residual disc space seen on the sagittal T2. Mild bilateral foraminal stenosis due to uncovertebral arthrosis. No significant canal stenosis. C6- C7: Fused level. Mild bilateral foraminal stenosis due to uncovertebral arthrosis. No significant canal stenosis C7-T1: Mildly degenerated disc. Small disc bulge and thickened ligamentum flavum result in mild canal stenosis. Patent neural foramina. IMPRESSION: 1. No changes from the prior cervical spine MRI of 10/14/2017. 2. No evidence of demyelinating disease in the cervical spinal cord. 3. Stable postoperative and degenerative changes with multilevel disc degeneration and mild multilevel foraminal stenosis without significant canal stenosis. Signed by: Dr. Grzegorz Oneill M.D. on 01/29/2020 3:02 PM Dictated By: GRZEGORZ ONEILL MD 1501 Transcribed By: TERESE on 01/29/20 1502 COPY TO: HELEN ALTAMIRANO MRI BRAIN WO 2020-01-29 14:29:00 [place] [address] Patient Name: LEONOR VELIZ MR #: [id number] : 1950 Age/Sex: 69/F Req #: [id number] Adm Physician: Ordered by: HELEN ALTAMIRANO Report #: [id number] Location: MRI Room/Bed: Procedure: [id number] MRI/MRI BRAIN WO Exam Date: Exam Time: REPORT STATUS: Signed Exam: Brain MRI without IV contrast History: Multiple sclerosis, radiculopathy Comparison studies: Brain MRI with IV contrast on 10/14/2017. Technique: Sagittal and axial T2 FLAIR, axial T2, axial DWI and axial and coronal T1. IV contrast: None. Findings: T2 lesion load: Number: Too numerous and too confluent count or measure white matter lesions Location: Juxtacortical, subcortical, deep supratentorial and periventricular, callosal septal interface and odell. No gross new lesions. Moreover, degree of lesion confluency somewhat limits evaluation for new lesion. T1 hypointense demyelinating lesions. None of CSF signal intensity. Corpus callosum volume: Mild volume loss. Brain volume: Mild generalized volume loss. Other: Chronic cortical/subcortical right parietal insult along the right superior parietal lobule and pars marginalis with encephalomalacia and gliosis is unchanged. Small chronic lacunar infarcts present within the basal ganglia and in the left thalamus. No mass, hemorrhage, acute ischemia, hydrocephalus or extra axial fluid collection. Incidental findings: Unchanged chronic T2 hyperintense inflammatory mucosal thickening or effusions in the bilateral mastoids. IMPRESSION: 1. No changes from the prior brain MRI of 10/14/2017. 2. Too numerous and too confluent to count white matter lesions which can be seen with the clinical diagnosis of multiple sclerosis or severe chronic microvascular ischemic changes are unchanged. No gross new lesion. 3. Unchanged chronic right superior parietal infarct and small chronic lacunar infarcts. 4. Unchanged mild generalized parenchymal volume loss. Exam was performed without IV contrast which does limit evaluation for potential new active demyelinating lesions. Signed by: Dr. Grzegorz Oneill M.D. on 01/29/2020 2:45 PM Dictated By: GRZEGORZ ONEILL MD 44 Transcribed By: TERESE on 01/29/201444 COPY TO: HELEN ALTAMIRANO CBC W/AUTO DIFF 2019-10-26 08:03:00 Test Item WHITE BLOOD CELL (test code = WBC) 2.70 x10 3/uL 4.5-11.0 L RED BLOOD CELL (test code = RBC) 3.22 x10 6/uL 3.54-5.02 L HEMOGLOBIN (test code = HGB) 10.1 g/dL 11.0-15.0 L HEMATOCRIT (test code = HCT) 32.7 % 33.0-45.0 L MEAN CELL VOLUME (test code = MCV) 101.6 fL 81.0-99.0 H MEAN CELL HGB (test code = MCH) 31.4 pg 27.0-33.0 N MEAN CELL HGB CONCETRATION (test code = MCHC) 30.9 g/dL 33.0-37. 0 L RED CELL DISTRIBUTION WIDTH CV (test code = RDW) 14.6 % 11.5- 14.5 H RED CELL DISTRIBUTION WIDTH SD (test code = RDW-SD) 54.7 fL 37 .0-54.0 H PLATELET COUNT (test code = PLT) 137 x10 3/uL 150-400 L MEAN PLATELET VOLUME (test code = MPV) 10.7 fL 7.0-9.0 H NEUTROPHIL % (test code = NT%) 54.9 % 56.0-77.0 L IMMATURE GRANULOCYTE % (test code = IG%) 0.7 % 0.0-2.0 N LYMPHOCYTE % (test code = LY%) 22.6 % 14.0-32.0 N MONOCYTE % (test code = MO%) 18.5 % 4.8-9.0 H EOSINOPHIL % (test code = EO%) 2.6 % 0.3-3.7 N BASOPHIL % (test code = BA%) 0.7 % 0.0-2.0 N NUCLEATED RBC % (test code = NRBC%) 0.0 % 0-0 N NEUTROPHIL # (test code = NT#) 1.48 x10 3/uL 2.0-7.6 L IMMATURE GRANULOCYTE # (test code = IG#) 0.02 x10 3/uL 0.00-0.03 N LYMPHOCYTE # (test code = LY#) 0.61 x10 3/uL 1.0-3.8 L MONOCYTE # (test code = MO#) 0.50 x10 3/uL 0.1-0.8 N EOSINOPHIL # (test code = EO#) 0.07 x10 3/uL 0.0-0.2 N BASOPHIL # (test code = BA#) 0.02 x10 3/uL 0.0-0.2 N NUCLEATED RBC # (test code = NRBC#) 0.00 x10 3/uL 0.0-0.1 N MANUAL DIFF REQUIRED (test code = MDIFF) NO RENAL FUNCTION [id number] 07:43:00* Test Item Value Reference Range Interpretation Comments SODIUM (test code = NA) 141 mEq/L 134-147 N POTASSIUM (test code = K) 4.2 mEq/L 3.4-5.0 N CHLORIDE (test code = CL) 109 mEq/L 100-108 H CARBON DIOXIDE (test code = CO2) 25 mEq/L 21-33 N ANION GAP (test code = GAP) 11 0-20 N GLUCOSE (test code = GLU) 77 mg/dL 70-110 N BLOOD UREA NITROGEN (test code = BUN) 22 mg/dL 7-18 H GLOMERULAR FILTRATION RATE (test code = GFR) 40.5 70-80 L Units of measure = ml/min/1.73 m2 CREATININE (test code = CREAT) 1.3 mg/dL 0.6-1.3 N ALBUMIN (test code = ALB) 2.60 g/dL 3.4-5.0 L CALCIUM (test code = CA) 8.6 mg/dL 8.0-10.5 N PHOSPHOROUS (test code = PHOS) 4.0 MG/DL 2.5-4.9 N [id number] 07:43:00* Test Item Value Reference Range Interpretation Comments MAGNESIUM (test code = MAG) 2.00 mg/dL 1.8-2.4 N RENAL FUNCTION [id number] 08:28:00* Test Item Value Reference Range Interpretation Comments SODIUM (test code = NA) 142 mEq/L 134-147 N POTASSIUM (test code = K) 4.3 mEq/L 3.4-5.0 N CHLORIDE (test code = CL) 111 mEq/L 100-108 H CARBON DIOXIDE (test code = CO2) 23 mEq/L 21-33 N ANION GAP (test code = GAP) 12 0-20 N GLUCOSE (test code = GLU) 73 mg/dL 70-110 N BLOOD UREA NITROGEN (test code = BUN) 18 mg/dL 7-18 GLOMERULAR FILTRATION RATE (test code = GFR) 44.4 70-80 L Units of measure = ml/min/1.73 m2 CREATININE (test code = CREAT) 1.2 mg/dL 0.6-1.3 N ALBUMIN (test code = ALB) 2.50 g/dL 3.4-5.0 L CALCIUM (test code = CA) 8.5 mg/dL 8.0-10.5 N PHOSPHOROUS (test code = PHOS) 4.1 MG/DL 2.5-4.9 [id number] 08:28:00* Test Item Value Reference Range Interpretation Comments MAGNESIUM (test code = MAG) 1.90 mg/dL 1.8-2.4 N CBC W/AUTO [id number] 07:36:00* Test Item Value Reference Range Interpretation Comments WHITE BLOOD CELL (test code = WBC) 2.73 x10 3/uL 4.5-11.0 L RED BLOOD CELL (test code = RBC) 2.98 x10 6/uL 3.54-5.02 L HEMOGLOBIN (test code = HGB) 10.0 g/dL 11.0-15.0 L HEMATOCRIT (test code = HCT) 30.9 % 33.0-45.0 L MEAN CELL VOLUME (test code = MCV) 103.7 fL 81.0-99.0 H MEAN CELL HGB (test code = MCH) 33.6 pg 27.0-33.0 H MEAN CELL HGB CONCETRATION (test code = MCHC) 32.4 g/dL 33.0-37. 0 L RED CELL DISTRIBUTION WIDTH CV (test code = RDW) 15.1 % 11.5- 14.5 H RED CELL DISTRIBUTION WIDTH SD (test code = RDW-SD) 55.8 fL 37 .0-54.0 H PLATELET COUNT (test code = PLT) 104 x10 3/uL 150-400 L MEAN PLATELET VOLUME (test code = MPV) 10.6 fL 7.0-9.0 H NEUTROPHIL % (test code = NT%) 59.8 % 56.0-77.0 N IMMATURE GRANULOCYTE % (test code = IG%) 1.1 % 0.0-2.0 N LYMPHOCYTE % (test code = LY%) 17.2 % 14.0-32.0 N MONOCYTE % (test code = MO%) 19.0 % 4.8-9.0 H EOSINOPHIL % (test code = EO%) 2.2 % 0.3-3.7 N BASOPHIL % (test code = BA%) 0.7 % 0.0-2.0 N NUCLEATED RBC % (test code = NRBC%) 0.0 % 0-0 N NEUTROPHIL # (test code = NT#) 1.63 x10 3/uL 2.0-7.6 L IMMATURE GRANULOCYTE # (test code = IG#) 0.03 x10 3/uL 0.00-0.03 N LYMPHOCYTE # (test code = LY#) 0.47 x10 3/uL 1.0-3.8 L MONOCYTE # (test code = MO#) 0.52 x10 3/uL 0.1-0.8 N EOSINOPHIL # (test code = EO#) 0.06 x10 3/uL 0.0-0.2 N BASOPHIL # (test code = BA#) 0.02 x10 3/uL 0.0-0.2 N NUCLEATED RBC # (test code = NRBC#) 0.00 x10 3/uL 0.0-0.1 N MANUAL DIFF REQUIRED (test code = MDIFF) NO - XR FOOT 3 + V [id number] 15:25:00 FAX: Yung Monahan MD [phone] [place]: St: ADM FAX: Claude Ruffin MD [phone] FAX: Joseph Ca MD [phone] Name: LEONOR VELIZ [facility] : 1950 Age/S: 69/F [address] [place] [address] Unit #: [id number] Loc: [place] [address] Phys: Yung Peres MD Acct: [id number] Dis Date: Status: ADM IN ONE #: [phone] Exam Date: 10/24/2019 1507 FAX #: [phone] Reason: right foot wound EXAMS: CPT CODE: [id number] XR FOOT 3 + [place] [address] Procedure: Rig ht Foot Radiographs. Clinical Indication: Right foot wound, status post fall. Comparison: MRI of the right foot 10/17/2019. FINDINGS: The 3 views of the right foot show a fracture of the base of the proximal phalanx of the right 3rd toe. Degenerative change involves the tarsal bones, metatarsophalangeal joints and interphalangeal joints including marginal osteophyte formation. Vascular calcifica tions are noted, suggesting diabetes. IMPRESSION: 1. De generative change with age-indeterminate fracture of the base of the pro ximal phalanx of the right 3rd toe. SL: OC O-H at 1525 Reported and signed by: Al Oliva M.D. C C: Yung Peres MD; Claude Chacon MD; Joseph Ornelas MD Technologist: Kristie Mcnally RT(R) Trnscrd Date/Time/By: 10/24/2019 (0245) : By: KatharineO Orig Print D/T: S: 10/24/2019 (7502) PAGE 1 Signed Report RENAL FUNCTION [id number] 04:57:00* Test Item Value Reference Range Interpretation Comments SODIUM (test code = NA) 142 mEq/L 134-147 N POTASSIUM (test code = K) 4.3 mEq/L 3.4-5.0 N CHLORIDE (test code = CL) 112 mEq/L 100-108 H CARBON DIOXIDE (test code = CO2) 22 mEq/L 21-33 N ANION GAP (test code = GAP) 12 0-20 N GLUCOSE (test code = GLU) 79 mg/dL 70-110 N BLOOD UREA NITROGEN (test code = BUN) 14 mg/dL 7-18 N GLOMERULAR FILTRATION RATE (test code = GFR) 49.1 70-80 L Units of measure = ml/min/1.73 m2 CREATININE (test code = CREAT) 1.1 mg/dL 0.6-1.3 N ALBUMIN (test code = ALB) 2.30 g/dL 3.4-5.0 L CALCIUM (test code = CA) 8.4 mg/dL 8.0-10.5 N PHOSPHOROUS (test code = PHOS) 3.1 MG/DL 2.5-4.9 N [id number] 04:57:00* Test Item Value Reference Range Interpretation Comments MAGNESIUM (test code = MAG) 1.80 mg/dL 1.8-2.4 N CBC W/AUTO [id number] 04:52:00* Test Item Value Reference Range Interpretation Comments WHITE BLOOD CELL (test code = WBC) 3.09 x10 3/uL 4.5-11.0 L RED BLOOD CELL (test code = RBC) 2.90 x10 6/uL 3.54-5.02 L HEMOGLOBIN (test code = HGB) 9.2 g/dL 11.0-15.0 L HEMATOCRIT (test code = HCT) 30.4 % 33.0-45.0 L MEAN CELL VOLUME (test code = MCV) 104.8 fL 81.0-99.0 H MEAN CELL HGB (test code = MCH) 31.7 pg 27.0-33.0 N MEAN CELL HGB CONCETRATION (test code = MCHC) 30.3 g/dL 33.0-37. 0 L RED CELL DISTRIBUTION WIDTH CV (test code = RDW) 14.5 % 11.5- 14.5 N RED CELL DISTRIBUTION WIDTH SD (test code = RDW-SD) 56.3 fL 37 .0-54.0 H PLATELET COUNT (test code = PLT) 100 x10 3/uL 150-400 L MEAN PLATELET VOLUME (test code = MPV) 10.2 fL 7.0-9.0 H NEUTROPHIL % (test code = NT%) 63.0 % 56.0-77.0 N IMMATURE GRANULOCYTE % (test code = IG%) 0.6 % 0.0-2.0 N LYMPHOCYTE % (test code = LY%) 15.5 % 14.0-32.0 N MONOCYTE % (test code = MO%) 18.4 % 4.8-9.0 H EOSINOPHIL % (test code = EO%) 1.9 % 0.3-3.7 N BASOPHIL % (test code = BA%) 0.6 % 0.0-2.0 N NUCLEATED RBC % (test code = NRBC%) 0.0 % 0-0 N NEUTROPHIL # (test code = NT#) 1.94 x10 3/uL 2.0-7.6 L IMMATURE GRANULOCYTE # (test code = IG#) 0.02 x10 3/uL 0.00-0.03 N LYMPHOCYTE # (test code = LY#) 0.48 x10 3/uL 1.0-3.8 L MONOCYTE # (test code = MO#) 0.57 x10 3/uL 0.1-0.8 N EOSINOPHIL # (test code = EO#) 0.06 x10 3/uL 0.0-0.2 N BASOPHIL # (test code = BA#) 0.02 x10 3/uL 0.0-0.2 N NUCLEATED RBC # (test code = NRBC#) 0.00 x10 3/uL 0.0-0.1 N MANUAL DIFF REQUIRED (test code = MDIFF) NO BASIC METABOLIC [id number] 09:13:00* Test Item Value Reference Range Interpretation Comments SODIUM (test code = NA) 144 mEq/L 134-147 N POTASSIUM (test code = K) 4.0 mEq/L 3.4-5.0 N CHLORIDE (test code = CL) 114 mEq/L 100-108 H CARBON DIOXIDE (test code = CO2) 24 mEq/L 21-33 N ANION GAP (test code = GAP) 10 0-20 N GLUCOSE (test code = GLU) 75 mg/dL 70-110 N BLOOD UREA NITROGEN (test code = BUN) 13 mg/dL 7-18 GLOMERULAR FILTRATION RATE (test code = GFR) 54.8 70-80 L Units of measure = ml/min/1.73 m2 CREATININE (test code = CREAT) 1.0 mg/dL 0.6-1.3 N CALCIUM (test code = CA) 7.9 mg/dL 8.0-10.5 L [id number] 09:13:00* Test Item Value Reference Range Interpretation Comments PHOSPHOROUS (test code = PHOS) 2.6 MG/DL 2.5-4.9 N [id number] 09:13:00* Test Item Value Reference Range Interpretation Comments MAGNESIUM (test code = MAG) 1.80 mg/dL 1.8-2.4 N CBC W/AUTO [id number] 08:19:00* Test Item Value Reference Range Interpretation Comments WHITE BLOOD CELL (test code = WBC) 3.50 x10 3/uL 4.5-11.0 L RED BLOOD CELL (test code = RBC) 2.80 x10 6/uL 3.54-5.02 L HEMOGLOBIN (test code = HGB) 8.7 g/dL 11.0-15.0 L HEMATOCRIT (test code = HCT) 29.3 % 33.0-45.0 L MEAN CELL VOLUME (test code = MCV) 104.6 fL 81.0-99.0 H MEAN CELL HGB (test code = MCH) 31.1 pg 27.0-33.0 N MEAN CELL HGB CONCETRATION (test code = MCHC) 29.7 g/dL 33.0-37. 0 L RED CELL DISTRIBUTION WIDTH CV (test code = RDW) 14.7 % 11.5- 14.5 H RED CELL DISTRIBUTION WIDTH SD (test code = RDW-SD) 56.3 fL 37 .0-54.0 H PLATELET COUNT (test code = PLT) 104 x10 3/uL 150-400 L MEAN PLATELET VOLUME (test code = MPV) 10.6 fL 7.0-9.0 H NEUTROPHIL % (test code = NT%) 68.2 % 56.0-77.0 N IMMATURE GRANULOCYTE % (test code = IG%) 0.6 % 0.0-2.0 N LYMPHOCYTE % (test code = LY%) 14.3 % 14.0-32.0 N MONOCYTE % (test code = MO%) 14.6 % 4.8-9.0 H EOSINOPHIL % (test code = EO%) 1.7 % 0.3-3.7 N BASOPHIL % (test code = BA%) 0.6 % 0.0-2.0 N NUCLEATED RBC % (test code = NRBC%) 0.0 % 0-0 N NEUTROPHIL # (test code = NT#) 2.39 x10 3/uL 2.0-7.6 N IMMATURE GRANULOCYTE # (test code = IG#) 0.02 x10 3/uL 0.00-0.03 N LYMPHOCYTE # (test code = LY#) 0.50 x10 3/uL 1.0-3.8 L MONOCYTE # (test code = MO#) 0.51 x10 3/uL 0.1-0.8 N EOSINOPHIL # (test code = EO#) 0.06 x10 3/uL 0.0-0.2 N BASOPHIL # (test code = BA#) 0.02 x10 3/uL 0.0-0.2 N NUCLEATED RBC # (test code = NRBC#) 0.00 x10 3/uL 0.0-0.1 N MANUAL DIFF REQUIRED (test code = MDIFF) NO URINALYSIS [id number] 21:42:00* Test Item Value Reference Range Interpretation Comments UA COLOR (test code = COLU) STRAW YEL/STRAW UA APPEARANCE (test code = APPU) CLEAR CLEAR UA GLUCOSE DIPSTICK (test code = DGLUU) NEGATIVE NEGATIVE UA BILIRUBIN DIPSTICK (test code = BILU) NEGATIVE NEGATIVE UA KETONE DIPSTICK (test code = KETU) NEGATIVE NEGATIVE UA SPECIFIC GRAVITY (test code = SGU) 1.004 1.005-1.030 L UA BLOOD DIPSTICK (test code = JULIANE) NEGATIVE NEGATIVE UA PH DIPSTICK (test code = DIGNA) 6.0 5.0-7.0 N UA PROTEIN DIPSTICK (test code = PROU) NEGATIVE NEGATIVE UA UROBILINIOGEN DIPSTICK (test code = URO) 0.2 mg/dL 0.2-1.0 UA NITRITE DIPSTICK (test code = CHILO) NEGATIVE NEGATIVE UA LEUKOCYTE ESTERASE DIPSTICK (test code = LEUU) NEGATIVE NEGA TIVE UA RBC (test code = RBCU) 0-3 RBC/HPF 0-3 UA WBC NO REFLEX (test code = WBCUCL) 0-3 WBC/HPF 0-3 UA BACTERIA (test code = BACU) NONE SEEN /HPF NONE SEEN UA SQUAMOUS CELLS (test code = SQU) 0-5 /HPF NONE SEEN UA MUCUS (test code = MUCU) TRACE /LPF NONE SEEN - XR CHEST 1 [id number] 10:34:00 FAX: Claude Ruffin MD [phone] [place]: St: ADM FAX: Joseph Ca MD [phone] Name: LEONOR VELIZ [facility] : 1950 Age/S: 69/F [address] [place] [address] Unit #: [id number] Loc: G.66[address] [place] [address] Phys: Claude Chacon MD Acct: [id number] Dis Date: Status: ADM IN PHONE #: [phone] Exam Date: 10/22/2019 1012 FAX #: [phone] Reason: TRAUMA EXAMS: CPT CODE: [id number] XR CHEST 1 V [id number] Portable chest performed October 22, 2019 0952 hours. COMPARISON: January 23, 2019 chest x-ray and CT chest October 21, 2019. CLINICAL HISTORY: TRAUMA. DISCUSSION: Single portable chest is submitted. Surgical hardware seen of the lower cervical spine. Partially visualized Uribe rods and IVC filter are present. Surgical clips are seen over the right upper quadrant. Linear atelectasis or scarring is present in the right lung base. Patchy nodular densities are seen in the right upper lobe, similar in appearance to recent CT. Heart size is normal. Degenerative changes are present in the osseous structures. Stable calcified density is present in the right axilla. IMPRESSION: 1. Atelectasis or scarring in the right lung base. 2. Nodular faint opacities are present in the right upper lobe, similar appearance prior CT. at 1034 Reported and signed by: Janie Carranza M.D. CC: Claude Chacon MD; Joseph Ornelas MD Technologist: Marissa Fiore RT(R), RTT Trnscrd Date/Time/By: 10/22/2019 (1034) : By: GeniaNMG Orig Print D/T: S: 10/22/2019 (1037) PAGE 1 Signed Report T4 [id number] 09:59:00* Test Item Value Reference Range Interpretation Comments T4 FREE (test code = T4F) 1.0 ng/dL 0.77-1.61 N THYROID STIMULATING [id number] 09:59:00* Test Item Value Reference Range Interpretation Comments THYROID STIMULATING HORMONE (test code = TSH) 2.27 0.42-5.4 7 N Results in sid- International Units/mL RENAL FUNCTION [id number] 08:23:00* Test Item Value Reference Range Interpretation Comments SODIUM (test code = NA) 145 mEq/L 134-147 N POTASSIUM (test code = K) 4.0 mEq/L 3.4-5.0 N CHLORIDE (test code = CL) 114 mEq/L 100-108 H CARBON DIOXIDE (test code = CO2) 23 mEq/L 21-33 N ANION GAP (test code = GAP) 12 0-20 N GLUCOSE (test code = GLU) 74 mg/dL 70-110 N BLOOD UREA NITROGEN (test code = BUN) 24 mg/dL 7-18 H GLOMERULAR FILTRATION RATE (test code = GFR) 44.4 70-80 L Units of measure = ml/min/1.73 m2 CREATININE (test code = CREAT) 1.2 mg/dL 0.6-1.3 N ALBUMIN (test code = ALB) 2.40 g/dL 3.4-5.0 L CALCIUM (test code = CA) 7.9 mg/dL 8.0-10.5 L PHOSPHOROUS (test code = PHOS) 3.2 MG/DL 2.5-4.9 N [id number] 08:23:00* Test Item Value Reference Range Interpretation Comments MAGNESIUM (test code = MAG) 1.90 mg/dL 1.8-2.4 N CBC W/AUTO [id number] 07:46:00* Test Item Value Reference Range Interpretation Comments WHITE BLOOD CELL (test code = WBC) 5.14 x10 3/uL 4.5-11.0 N RED BLOOD CELL (test code = RBC) 2.94 x10 6/uL 3.54-5.02 L HEMOGLOBIN (test code = HGB) 9.2 g/dL 11.0-15.0 L HEMATOCRIT (test code = HCT) 30.8 % 33.0-45.0 L MEAN CELL VOLUME (test code = MCV) 104.8 fL 81.0-99.0 H MEAN CELL HGB (test code = MCH) 31.3 pg 27.0-33.0 N MEAN CELL HGB CONCETRATION (test code = MCHC) 29.9 g/dL 33.0-37. 0 L RED CELL DISTRIBUTION WIDTH CV (test code = RDW) 14.7 % 11.5- 14.5 H RED CELL DISTRIBUTION WIDTH SD (test code = RDW-SD) 56.9 fL 37 .0-54.0 H PLATELET COUNT (test code = PLT) 101 x10 3/uL 150-400 L MEAN PLATELET VOLUME (test code = MPV) 10.8 fL 7.0-9.0 H NEUTROPHIL % (test code = NT%) 68.8 % 56.0-77.0 N IMMATURE GRANULOCYTE % (test code = IG%) 0.6 % 0.0-2.0 N LYMPHOCYTE % (test code = LY%) 12.5 % 14.0-32.0 L MONOCYTE % (test code = MO%) 15.2 % 4.8-9.0 H EOSINOPHIL % (test code = EO%) 2.3 % 0.3-3.7 N BASOPHIL % (test code = BA%) 0.6 % 0.0-2.0 N NUCLEATED RBC % (test code = NRBC%) 0.0 % 0-0 N NEUTROPHIL # (test code = NT#) 3.54 x10 3/uL 2.0-7.6 N IMMATURE GRANULOCYTE # (test code = IG#) 0.03 x10 3/uL 0.00-0.03 N LYMPHOCYTE # (test code = LY#) 0.64 x10 3/uL 1.0-3.8 L MONOCYTE # (test code = MO#) 0.78 x10 3/uL 0.1-0.8 N EOSINOPHIL # (test code = EO#) 0.12 x10 3/uL 0.0-0.2 N BASOPHIL # (test code = BA#) 0.03 x10 3/uL 0.0-0.2 N NUCLEATED RBC # (test code = NRBC#) 0.00 x10 3/uL 0.0-0.1 N MANUAL DIFF REQUIRED (test code = MDIFF) NO - CT UP EXTREM W/O CONT [id number] 19:59:00 Name: LEONOR VELIZ [facility] Kaya Waller : 1950 Age/S: 69 / F [address] [place] [address] Unit #: [id number] Loc: [place] [address] Phys: Claude Chacon MD Acct: [id number] Dis Date: Status: ADM IN PHONE #: [phone] Exam Date: 10/21/20191926 FAX #: [phone] Reason: ? distal ulnar fx seen on plain film EXAMS: CPT CODE: [id number] [place] UP EXTREM W/[place] [address] LEFT WRIST INDICATION: ? distal ulnar fx seen on plain film. TECHNIQUE: Unenhanced CT left wrist with multiplanar reconstructions. CT imaging performed at this location utilizes radiation dose optimization technique which includes one or more of the followin) Automated exposure control; 2) Adjustment of the mA and/or kV according to patient's size; 3) Use of iterative reconstruction techniques. DLP (mGy-cm): 148 COMPARISONS: Left hand radiographs 10/21/2019 FINDINGS: There are vascular calcifications in the soft tissues. There is no subcutaneous emphysema or retained radiodense foreign body. There is no acute osseous fracture. 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 There is chronic scapholunate separation. There are chronic changes of anterior dislocation of the ulnocarpal joint and anterior subluxation of the radiocarpal joint. There are advanced second domenico osteoarthritic degenerative changes and pseudoarthroses with the carpa ls that have impacted the distal radius and ulna. The triquetrum, pisifor m and lunate bones are 2.5 cm retracted in relation to the distal ulnar ar ticular margin. IMPRESSION: 1. There is no ac rashid osseous fracture. 2. There is chronic mid waist fracture nonunion o f the scaphoid bone. There is chronic scapholunate separation. There a re chronic changes of anterior dislocation of the ulnocarpal joint and a nterior subluxation of the radiocarpal joint. There are advanced second domenico osteoarthritic degenerative changes and pseudoarthroses of the carpa ls that have impacted the distal radius and ulna. The triquetrum, pisiform and lunate bones are 2.5 cm retracted in relation to the dis thee ulnar articular margin. 3. There are severe atherosclerotic vascula r calcifications. at 1958 Reported and signed by: Ty Guillory D.O. PAGE 1 Signed Report (CONTINUED) Name: LEONOR VELIZ [facility] : 1950 Age/S: 69 / F [address] [place] [address] Unit #: [id number] Loc: [place] [address] Phys: Claude Chacon MD Acct: [id number] Dis Date: Status: ADM IN PHONE #: [phone] Exam Date: 10/21/20191926 FAX #: [phone] Reason: ? distal u lnar fx seen on plain film EXAMS: CPT CODE: [id number] [place] UP EXTREM W/[place] [address] <Continued> CC: Alberto Davison MD; Claude Chacon MD; Joseph Ornelas MD Technologist:Bear Machado, RT(R)(CT) CTDI: DLP: Trnscb Date/Time: 10/21/2019 (1958) [id number] Orig Print D/T: S: 10/21/2019 (2001) PAGE 2 Signed Report - XR HAND 3 + V [id number] 15:17:00 FAX: Robert Lara [phone] [place]: B St: REG FAX: Joseph Ca MD [phone] Name: LEONOR VELIZ [facility] : 1950 Age/S: 69/F [address] Unit #: [id number] Loc: [place] [address] Phys: Robert Lara MD Acct: [id number] Dis Date: Status: REG ER PHONE #: [phone] Exam Date: 10/21/2019 1503 FAX #: [phone] Reason: pain s/p fall EXAMS: CPT CODE: [id number] XR HAND 3 + [place] [address] EXAM: Left hand, 3 views; INFORMATION: Status post fall, pain; FINDINGS: There is severe diffuse osteoporosis. Deformity of the distal portion of the ulna formation indicating status post old trauma. There is an irregular thin line which could represent superimposed impacted and nondisplaced acute fracture. There is soft tissue swelling near the ulnar/metacarpal joint. Advanced degenerative changes are seen involving the radiocarpal joint. The craniovertebral of carpal bones appears absent but is probably significantly diminished secondary to osteonecrosis. Individual proximal carpal bones cannot be identified on this plain x-ray series. Metacarpal bones and phalanges are intact. No radiopaque foreign bodies. Arterial calcifications. IMPRESSION: 1. Diffuse osteoporosis. 2. 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 3. Deformity of the distal portion of the ulna consistent with old trauma. Suspicion of additional nondisplaced impacted fracture of the distal ulna. 4. 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 I recommend CT scan of the wrist for further evaluation. Location code: [facility] at 1517 Reported and signed by: Abraham Armstrong M.D. CC: Robert Martinez MD; Joseph Ornelas MD Technologist: CATRACHITO LYN RT(R) Trnscrd Date/Time/By: 10/21/2019 (151 7) : By: Keisha Orig Print D/T: S: 10/21/2019 (1520) PAGE 1 Signed Report - CT CHEST W/O [id number] 14:30:00 Name: LEONOR VELIZ [facility] : 1950 Age/S: 69 / F [address] Unit #: [id number] Loc: [place] [address] Phys: Robert Lara MD Acct: [id number] Dis Date: Status: REG ER PHONE #: [phone] Exam Date: 10/21/2019 1352 FAX #: [phone] Reason: left lower rib pains sp fall EXAMS: CPT CODE: [id number] CT CHEST W/O CONTRAST 94283 REASON FOR EXAM: left lower rib pains sp fall EXAM ORDER DATE: 10/21/2019 1:32 PM Ordering M.D.: Robert Lara MD PROCEDURE: - CT CHEST W/O CONTRAST Comparison:CT chest June 20, [address] images of the chest were obtained without IV contrast. Reconstructed sagittal and coronal images of the chest were provided for interpretation. Dose reduction techniques were applied. FINDINGS: The absence of IV contrast limits the sensitivity of this exam for detecting soft tissue pathology and differentiating atelectasis from c onsolidations. Visualized neck: Thyroid gland is not clearly visua lized and may be severely atrophic or surgically absent Airw ays, Lungs and Pleura: There is a nodule in the left upper lobe (12/17 that measures 1.3 x 0.8 cm in size which is grossly unchanged from the previous exam. There are also a few groundglass opacities in the posterior segment of the right upper lobe and superior segment of the right lower lobe which may represent aspiration versus infection. Mild subsegmental atelectasis is present in the lower lobes. No pneumothorax or pleural effusion or pu lmonary contusion is seen. Heart, great vessels, pulmonary vessels , mediastinum: Mild calcifications are present in the coronary arteries an d thoracic aorta. Thoracic aorta and pulmonary trunk are normal in caliber . Cardiac chambers are grossly unremarkable Lymph nodes: No axillary, internal mammary, or mediastinal adenopathy. Hilar lymph nodes a re suboptimally evaluated due to the absence of IV contrast Musculoskeletal/chest wall: Height loss of the T9 vertebral body is unchan ged from the previous study. There are severe degenerative changes of the bilateral shoulders. Nondisplaced fractures involving the lateral aspects of the left third, fourth, and fifth rib as well PAGE 1 Signed Report (CONTINUED) Name: LEONOR VELIZ [facility] : 1950 Age/S: 69 / F [address] Unit #: [id number] Loc: [place] [address] Phys: Robert Lara MD Acct: [id number] Dis Date: Status: REG ER PHONE #: [phone] Exam Date: 10/21 1352 FAX #: [phone] Reason: left lower rib pains sp fall EXAMS: CPT CODE: [id number] CT CHEST W/O CONTRAST 71 250 <Continued> as the anterior aspect of the left second and fourth ribs. Posttraumatic changes involving the posterior aspect of the right 11th rib are likely chronic. Visualized upper abdomen: Prior cholecystectomy. There are calcified granulomas in the splenic parenchyma. Pancreas is atrophic. IMPRESSION: Nondisplaced left-sided rib fractures involving the second through fifth ribs as described above. There is also a chronic posterior body deformity of the right 11th rib. No contusion or pneumothorax of the underlying lung. Left upper lobe pulmonary nodule is unchanged from the previous examination and also appears stable since December 2018. Follow-up CT scan in approximately 15 months is recommended and if the lesion remains stable in size than it is likely benign. Patchy opacities in the right upper and right lower lobe as described above may represent superimposed aspiration versus infection. Location: [facility] at 1430 Reported and signed by: Martinez Alvarez MD CC: Robert Lara MD; Joseph Ornelas MD Technologist:Estefania Dolan,RT(R),CT CTDI: DLP: Trnscb Date/Time: 10/21/2019 (1430) [id number] Orig Print D/T: S: 10/21/2019 (6824) PAGE 2 Signed Report - CT MAXIFAC W/O [id number] 14:10:00 Name: DK VELIZBIE [facility] : 1950 Age/S: 69 / F [address] Unit #: [id number] Loc: [place] [address] Phys: Robert Lara MD Acct: [id number] Dis Date: Status: REG ER PHONE #: [phone] Exam Date: 10/21/2019 1348 FAX #: [phone] Reason: pain, trauma, fall EXAMS: CPT CODE: [id number] CT MAXIFAC [place] [id number] HISTORY: HEADACHE TECHNIQUE: Noncontrast 2.[address] of the head. Examination acquired within 24 hours of arrival. Automated exposure control for dose reduction. COMPARISON: None FINDINGS: No lacerations or contusions of the scalp or facial soft tissues. Calvarium and skull base are intact. There are acute fractures of the bilateral mandibular condyles. There is also a fracture in the body of the left mandible with gas in the adjacent soft tissues which is likely posttraumatic. Orbital and sinus lane are intact. No acute hemorrhage. No intracranial mass, mass effect, or midline shift. There is diffuse cortical atrophy. 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 Additionally lacunar infarcts are seen in the bilateral basal ganglia. Visualized paranasal sinuses are clear. Left mastoid air cells are opacified. Small amount of fluid is also present in the right mastoid air cells. External auditory canals and m iddle ear cavities are clear. Prior right-sided lens extraction. T he globes are normal in size, contour, and position. The course and calib er of the optic nerve sheath complex is within normal limits. The extraoc ular muscles, intraconal fat, and extraconal fat are within normal limits. The lacrimal glands appear normal. The orbital lane and optic canals a re normal. There has been prior fusion of C4-C5 with placeme nt of interbody bone graft. Diffuse portion of the spine is appropriately aligned. Remainder of the spine is also appropriately aligned. There is he ight loss of the C5-C6 disc space. There appears to been prior fusion of C6-C7 however the hardware appears to have been removed. There is mild left-sided foraminal narrowing at C3-C4. There is moderate bilateral for aminal narrowing at C4-C5. Moderate bilateral PAGE 1 Signed Report (CONTINUED) Name: LEONOR VELIZ [facility] : 1950 Age/S: 69 / F [address] [facility] Unit #: [id number] Loc: [place] [address] Phys: Robert Lara MD Acct: [id number] Dis Date: Status: REG ER PHONE #: [phone] Exam Date: 10/21/2019 1347 FAX #: [phone] Reason: pain, trauma, fall EXAMS: CPT CODE: [id number] [place] MAXIF[place] [address] <Continued> foraminal narrowing at C5-C6. Moderate bilateral foraminal narrowing at C6-C7. No prevertebral or paraspinal soft tissue abnormality. Lung apices are clear. IMPRESSION: Fractures involving the left mandibular body and bilateral mandibular condyles. Orbital lane and sinuses are intact. No evidence of acute intracranial injury. 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 No fracture or malalignment of the cervical spine. Fusion of C4-C5 with appropriate alignment and no hardware loosening. Location: [facility] at 1410 Reported and signed by: Martinez Alvarez MD CC: Robert Lara MD; Joseph Ornelas MD Technologist:Estefania Dolan,RT(R),CT CTDI: DLP: Trnscb Date/Time: 10/21/2019 (1410) [email or web address].RR31 Orig Print D/T: S: 10/21/2019 (1413) PAGE 2 Signed Report - CT C-SPINE W/O [id number] 14:10:00 Name: LEONOR VELIZ Jules [facility] : 1950 Age/S: 69 / F [address] [place] [address] Unit #: [id number] Loc: [place] [address] Phys: Robert Lara MD Acct: [id number] Dis Date: Status: REG ER PHONE #: [phone] Exam Date: 10/21/2019 3283 FAX #: [phone] Reason: Neck Pain EXAMS: CPT CODE: [id number] CT C-SPINE W/O CONTRAST 97693 HISTORY: HEADACHE TECHNIQUE: Noncontrast 2.[address] of the head. Examination acquired within 24 hours of arrival. Automated exposure control for dose reduction. COMPARISON: None FINDINGS: No lacerations or contusions of the scalp or facial soft tissues. Calvarium and skull base are intact. There are acute fractures of the bilateral mandibular condyles. There is also a fracture in the body of the left mandible with gas in the adjacent soft tissues which is likely posttraumatic. Orbital and sinus lane are intact. No acute hemorrhage. No intracranial mass, mass effect, or midline shift. There is diffuse cortical atrophy. 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 Additionally lacunar infarcts are seen in the bilateral basal ganglia. Visualized paranasal sinuses are clear. Left mastoid air cells are opacified. Small amount of fluid is also present in the right mastoid air cells. External auditory canals and middle ear cavities are clear. Prior right-sided lens extraction. The globes are normal in size, contour, and position. The course and caliber of the optic nerve sheath complex is within normal limits. The extraocular muscles, intraconal fat, and extraconal fat are within normal limits. The lacrimal glands appear normal. The orbital lane and optic canals are normal. There has been prior fusion of C4-C5 with placement of interbody bone graft. Diffuse portion of the spine is appropriately aligned. Remainder of the spine is also appropriately aligned. There is height loss of the C5-C6 disc space. There appears to been prior fusion of C6-C7 however the hardware appears to have been removed. There is mild left-sided foraminal narrowing at C3-C4. There is moderate bilateral foraminal narrowing at C4- C5. Moderate bilateral PAGE 1 Signed Report (CONTINUED) Name: LEONOR VELIZ [facility] : 1950 Age/S: 69 / F [address] [facility] Unit #: [id number] Loc: [place] [address] Phys: Robert Lara MD Acct: [id number] Dis Date: Status: REG ER PHONE #: [phone] Exam Date: 10/21/2019 1343 FAX #: [phone] Reason: Neck Pain EXAMS: CPT CODE: [id number] CT C-SPINE W/O CONTRAST 58156 < Continued> foraminal narrowing at C5-C6. Moderate bilateral foraminal narrowing at C6-C7. No prevertebral or paraspinal soft tissue abnormality. Lung apices are clear. IMPRESSION: Fractures involving the left mandibular body and bilateral mandibular condyles. Orbital lane and sinuses are intact. No evidence of acute intracranial injury. 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 No fracture or malalignment of the cervical spine. Fusion of C4-C5 with appropriate alignment and no hardware loosening. Location: [facility] at 1410 Reported and signed by: Martinez Alvarez MD CC: Robert Lara MD; Joseph Ornelas MD Technologist:Estefania Dolan,RT(R),CT CTDI: DLP: Trnscb Date/Time: 10/21/2019 (141) [email or web address] Orig Print D/T: S: 10/21/2019 (6133) PAGE 2 Signed Report - CT HEAD/BRAIN W/O [id number] 14:10:00 Name: LEONOR VELIZ [facility] : 1950 Age/S: 69 / F [address] [facility] Unit #: [id number] Loc: [place] [address] Phys: Robert Lara MD Acct: [id number] Dis Date: Status: REG ER PHONE #: [phone] Exam Date: 10/21/2019 1346 FAX #: [phone] Reason: HEADACHE EXAMS: CPT CODE: [id number] CT HEAD/BRAIN W/O CONT 69885 HISTORY: HEADACHE TECHNIQUE: Noncontrast 2.[address] of the head. Examination acquired within 24 hours of arrival. Automated exposure control for dose reduction. COMPARISON: None FINDINGS: No lacerations or contusions of the scalp or facial soft tissues. Calvarium and skull base are intact. There are acute fractures of the bilateral mandibular condyles. There is also a fracture in the body of the left mandible with gas in the adjacent soft tissues which is likely posttraumatic. Orbital and sinus lane are intact. No acute hemorrhage. No intracranial mass, mass effect, or midline shift. There is diffuse cortical atrophy. 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 Additionally lacunar infarcts are seen in the bilateral basal ganglia. Visualized paranasal sinuses are clear. Left mastoid air cells are opacified. Small amount of fluid is also present in the right mastoid air cells. External auditory canals and middle ear cavities are clear. Prior right-sided lens extraction. The globes are normal in size, contour, and position. The course and caliber of the optic nerve sheath complex is within normal limits. The extraocular muscles, intraconal fat, and extraconal fat are within normal limits. The lacrimal glands appear normal. The orbital lane and optic canals are normal. There has been prior fusion of C4-C5 with placement of interbody bone graft. Diffuse portion of the spine is appropriately aligned. Remainder of the spine is also appropriately aligned. There is height loss of the C5-C6 disc space. There appears to been prior fusion of C6-C7 however the hardware appears to have been removed. There is mild left-sided foraminal narrowing at C3-C4. There is moderate bilateral foraminal narrowing at C4- C5. Moderate bilateral PAGE 1 Signed Report (CONTINUED) Name: LEONOR VELIZ [facility] : 1950 Age/S: 69 / F [address] [facility] Unit #: [id number] Loc: [place] [address] Phys: Robert Lara MD Acct: [id number] Dis Date: Status: REG ER PHONE #: [phone] Exam Date: 10/21/2019 1346 FAX #: [phone] Reason: HEADACHE EXAMS: CPT CODE: [id number] CT HEAD/BRAIN W/O CONT 11487 < Continued> foraminal narrowing at C5-C6. Moderate bilateral foraminal narrowing at C6-C7. No prevertebral or paraspinal soft tissue abnormality. Lung apices are clear. IMPRESSION: Fractures involving the left mandibular body and bilateral mandibular condyles. Orbital lane and sinuses are intact. No evidence of acute intracranial injury. 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 No fracture or malalignment of the cervical spine. Fusion of C4-C5 with appropriate alignment and no hardware loosening. Location: [facility] at 1410 Reported and signed by: Martinez Alvarez MD CC: Robert Lara MD; Joseph Ornelas MD Technologist:Estefania Dolan,RT(R),CT CTDI: DLP: Trnscb Date/Time: 10/21/2019 (1409) [email or web address] Orig Print D/T: S: 10/21/2019 (9032) PAGE 2 Signed Report PROTHROMBIN [id number] 14:09:00* Test Item Value Reference Range Interpretation Comments PROTHROMBIN TIME PATIENT (test code = PTP) 11.4 seconds 9.0-14.0 N INTERNATIONAL NORMAL RATIO (test code = INR) 1.0 0.8-1.2 N The therapeutic range for oral anticoagulant therapy formost indications is an international normalized ratio (INR)of between 2.0 and 3.0. The recommended therapeutic INRrange for various clinical situations is listed below: Clinical Situation INR range Pulmonary e mbolism treatment (2.0-3.0)Venous thrombosis treatmentVenous thrombosis prophylaxis (high risk surgery)Prevention of systemic embolism from: Acute myocardial infarction Valvular heart disease Atrial fibrillation Mechanical prosthetic heart valves (2.5-3.5) IS PATIENT ON ANTICOAGULANTS? NTHROMBOPLASTIN TIME [id number] 14:09:00* Test Item Value Reference Range Interpretation Comments THROMBOPLASTIN TIME PARTIAL (test code = PTT) 29.2 seconds 25.0-36. 5 N IS PATIENT ON ANTICOAGULANTS? NCBC W/O [id number] 14:08:00* Test Item Value Reference Range Interpretation Comments WHITE BLOOD CELL (test code = WBC) 6.0 K/mm3 4.5-12.5 N RED BLOOD CELL (test code = RBC) 3.76 mill/mm3 3.7-5.2 N HEMOGLOBIN (test code = HGB) 11.6 gram/dL 11.5-15.5 N HEMATOCRIT (test code = HCT) 38.0 % 36.0-46.0 N MEAN CELL VOLUME (test code = MCV) 101.1 fL 80-98 H MEAN CELL HGB (test code = MCH) 30.9 picogram 27.0-33.0 N MEAN CELL HGB CONCETRATION (test code = MCHC) 30.5 gram/dL 33.0-36. 0 L RED CELL DISTRIBUTION WIDTH (test code = RDW) 14.8 % 11.6-16. 2 N PLATELET COUNT (test code = PLT) 149 K/mm3 150-450 L MEAN PLATELET VOLUME (test code = MPV) 10.5 fL 6.7-11.0 N BASIC METABOLIC [id number] 14:08:00* Test Item Value Reference Range Interpretation Comments SODIUM (test code = NA) 146 mmol/L 136-145 H POTASSIUM (test code = K) 4.4 mmol/L 3.5-5.1 N CHLORIDE (test code = CL) 116.0 mmol/L 98-107 H CARBON DIOXIDE (test code = CO2) 23.0 mmol/L 21-32 N ANION GAP (test code = GAP) 11.4 10-20 N GLUCOSE (test code = GLU) 138 mg/dL 74-106 H BLOOD UREA NITROGEN (test code = BUN) 35 mg/dL 7-18 H GLOMERULAR FILTRATION RATE (test code = GFR) 32 mL/min >=60 Estimated GFR by using Modified MDRD formula.Chronic kidney disease is defined as either kidney damageor GFR <60 mL/min/1.73 m2 for >3 months. CREATININE (test code = CREAT) 1.60 mg/dL 0.55-1.02 H Note change in reference range due to change in reagent. BUN/CREATININE RATIO (test code = BUN/CREA) 21.9 10-20 H CALCIUM (test code = CA) 8.7 mg/dL 8.5-10.1 N BASIC METABOLIC [id number] 14:01:00* Test Item Value Reference Range Interpretation Comments SODIUM (test code = NA) 146 mmol/L 136-145 H POTASSIUM (test code = K) 4.4 mmol/L 3.5-5.1 N CHLORIDE (test code = CL) 116.0 mmol/L 98-107 H CARBON DIOXIDE (test code = CO2) mmol/L 21-32 ANION GAP (test code = GAP) 10-20 GLUCOSE (test code = GLU) mg/dL 74-106 BLOOD UREA NITROGEN (test code = BUN) mg/dL 7-18 GLOMERULAR FILTRATION RATE (test code = GFR) mL/min >=60 CREATININE (test code = CREAT) mg/dL 0.55-1.02 BUN/CREATININE RATIO (test code = BUN/CREA) 10-20 CALCIUM (test code = CA) mg/dL 8.5-10.1 - MRI LOW EXT W/O CONT [id number] 17:09:00 FAX: Alexus Freire MD [phone] [place]: St: REG FAX: Joseph Ca MD [phone] Name: LEONOR VELIZ Jules [facility] : 1950 Age/S: 69/F [address] Unit #: [id number] Loc: [place] [address] Phys: Alexus Elliott MD Acct: [id number] Dis Date: Status: REG CLI PHONE #: [phone] Exam Date: 10/17/2019 1320 FAX #: [phone] Reason: OSTEOMYELITIS, UNSPEC IFIED EXAMS: CPT CODE: [id number] MRI LOW EXT W/[place] [address] Exam: MRI right foot without contrast Dictation l ocation: B2 INDICATION: Osteomyelitis 5th MTP joint. COMPARISON: None TECHNIQUE: Axial STIR and T1, coronal proton de nsity and T1, and sagittal PD fat-sat and T1-weighted sequences of the rig ht foot were obtained without IV contrast. DISCUSSION: Motio n artifact limits evaluation on the sagittal PD fat-sat and coronal PD seq uences. Muscles and tendons: No tendon tear or obvious tenosynovit is is seen. Ligaments and plantar plates: Lisfranc's ligament is i ntact. Plantar plates appear intact when accounting for motion artifact. Osseous structures: No cortical erosion or T1 marrow replacing abnormality is seen. There is an intermediate signal T1 line in the di stal 3rd of the proximal 5th phalanx on sagittal image 19, associated with adjacent edema. Valgus angulation of the 1st interphalangeal joint and v arus angulation of the 2nd and 3rd interphalangeal joints is noted. Soft tissues: Dorsal foot subcutaneous edema is noted. I MPRESSION: 1. Somewhat limited evaluation due to motion artifact as sukhjinder cribed. There is and intermediate T1 signal line in the distal third of the proximal 5th phalanx with mild adjacent bony edema. No obvious cortical erosion is seen. This could reflect a fracture. X-ray co rrelation may be beneficial. No specific evidence of osteomyelitis is s een. In particular, there is no evidence of osteomyelitis or septic art hritis involving the 5th MTP joint. 2. Dorsal foot subcutaneous edema i s nonspecific and could be seen with cellulitis or due to a vascular/car diogenic etiology. Electronically Signed by Garland Kc MD on 09/24 at 1709 Reported and signed by: Garland Kc MD PAGE 1 Signed Report (CONTINUED) FAX: Alexus Freire MD [phone] [place]: St: REG FAX: Joseph Ca MD [phone] Name: LEONOR VELIZ Jules [facility] : 1950 Age/S: 69/F [address] Unit #: [id number] Loc: [place] [address] Phys: Alexus Elliott MD Acct: [id number] Dis Date: Status: REG CLI PHONE #: [phone] Exam Date: 10/17/2019 1320 FAX #: [phone] Reason: OSTEOMYELITIS, UNSPE CIFIED EXAMS: CPT CODE: [id number] MRI LOW EXT W/[place] [address] <Continued> CC: Alexus Elliott MD; Joseph Ornelas MD Technologist: NATALYA Duarte Date/Time/By: 10/17/2019 (0622) : By: [email or web address] PAGE 2 Signed Report FAX: Alexus Freire MD [phone] [place]: [facility]: REG FAX: Joseph Ca MD [phone] Name: LEONOR VELIZ [facility] : 1950 Age/S: 69/F [address] Unit #: [id number] Loc: [place] [address] Phys: Alexus Elliott MD Acct: [id number] Dis Date: Status: REG CLI PHONE #: [phone] Exam Date: 10/17/2019 1320 FAX #: [phone] Reason: OSTEOMYELITIS, UNSPECIFIED EXAMS: CPT CODE: [id number] MRI LOW EXT W/[place] [address] <Continued> Orig Print D/T: S: 10/17/2019 (0627) PAGE 3 Signed Report - CT CHEST W/O [id number] 09:09:00 FAX: Kofi Briones [phone] [place]: [facility]: REG FAX: Joseph Ca MD [phone] [facility] 1950 Age/S: 69/F [address] Unit: [id number] Loc: [place] [address] Phys: Kofi Bean MD Acct: [id number] Dis Date: Status: REG CLI PHONE #: [phone] Exam Date: 06/20/2019 0806 FAX #: [phone] Reason: SOLITARY PULMONARY NODULE EXAMS: CPT CODE: [id number] CT CHEST W/O CONTRAST 49768 EXAM: - CT CHEST W/O CONTRAST HISTORY: SOLITARY PULMONARY NODULE Location code:C3 TECHNIQUE: Axial tomograms through the chest were obtained without intravenous contrast. Coronal and sagittal reformatted images are provided. Automated exposure reduction (Auto mA/Smart mA) was utilized in compliance with ACR Image Wisely with DLP of 82.57 mGy-cm. COMPARISON: 01/10/2019 and 03/16/2019. FINDINGS: LUNGS: Pulmonary nodule in the left upper lobe with average dimension of 11 mm is unchanged seen on series 3 image 23. Dependent atelectasis is present. There is no acute consolidation. PLEURA: No pleural effusion or pneumothorax. VASCULATURE: Vasc ular calcifications involve the aorta and coronary arteries without thorac ic aortic aneurysm. TRACHEOBRONCHIAL TREE: The trachea and loba r bronchi are unremarkable. LYMPHATICS: There is no gross adenopathy accounting for lack of intravenous contrast. SUALIZED ABDOMEN: Unremarkable. BONES: No acute osseous findings. SOFT TISSUES: Unremarkable. OTHER: No significant additional findings. IMPRESSION: 1. Left upper lobe pulmonary nodule with average dimension of 11 mm is unchanged prior exams dating back to 01/10/2019. PAGE 1 Signed R eport (CONTINUED) FAX: Kofi Briones [phone] [place]: St: REG FAX: Joseph Ca MD [phone] --- Na me: LEONOR VELIZ : Age/S: 69/F [address] Unit: [id number] Loc: [place] [address] Phys: Jj Bean MD Acct: [id number] Dis D ate: Status: REG CLI PHONE #: Exam Date: 06/20/2019 0806 FAX #: [phone] Reason: SOLITARY PULMONARY NODULE EXAMS: CPT CODE: [id number] CT CHEST W/O CO NTRAST 89279 <Continued> at 0909 Reported and signed by: Catrachito Liu MD CC: Kofi Bean MD; Joseph Ornelas MD Technologist: LAVERN CORRAL Trnnyrd Dt/Tm: 06/20/2019 (0909) [email or web address] Orig Print D/T: S: 06/20/2019 (0913 PAGE 2 Signed Report - XR HIP W/PEL UNI 2+V [id number] 15:35:00 FAX: Kofi Briones [phone] [place]: St: REG FAX: Joseph Ca MD [phone] Name: LEONOR VELIZ : 1950 Age/S: 68/F [address] Unit #: [id number] Loc: [place] [address] Phys: Kofi Bean MD Acct: [id number] Dis Date: Status: REG CLI PHONE #: [phone] Exam Date: 05/08/2019 1525 FAX #: [phone] Reason: PAIN IN UNSPCIFIED HIP EXAMS: CPT CODE: [id number] XR HIP W/PEL UNI 2+[place] [address] EXAM: - XR HIP W/PEL UNI 2+V RT HISTORY: PAIN IN UNSPECIFIED HIP Location code:C3 COMPARISON: CT abdo men and pelvis 03/01/2019. FINDINGS: AP view of the pelvis and frog-lateral views of the right hip provided. No acute fracture, di slocation, or other acute osseous abnormality is demonstrated. Chronic co rtical irregularity seen along the posterior inferior right ischium. Mild joint space narrowing of both hips. The femoral head is located in approp riate position within the acetabulum. Severe vascular atherosclerotic lacey cifications. Lower paraspinal rods with pedicle screws and IVC filter vi sualized. IMPRESSION: 1. No fracture or othe r acute osseous abnormality identified. at 1536 Reported and signed by: Kelli Gonzalez MD CC: Kofi Bean MD; Joseph Ornelas MD Technologist: Lori Liu PAGE 1 Signed Report FAX: Kofi Briones [phone] [place]: St: REG FAX: Joseph Ca MD [phone] Name: LEONOR EVLIZ [facility] Jaime trabuco canyon : 1950 Age/S: 68/F [address] Unit #: [id number] Loc: [place] [address] Phys: Kofi Bean MD Acct: [id number] Dis Date: Status: REG CLI PHONE #: [phone] Exam Date: 05/08/2019 1525 FAX #: [phone] Reason: PAIN IN UNSPCIFIED HIP EXAMS: CPT CODE: [id number] XR HIP W/PEL UNI 2+[place] [address] < Continued> [facility] Date/Time/By: 05/08/2019 (153) : By: [email or web address] PAGE 2 Signed Report - US CHST W/[id number] 13:18:00 FAX: Kofi Briones [phone] [place]: St: REG Name: LEONOR JOHNSON [facility] : [birth year] Age/S: 68/F [address] Unit #: [id number] Loc: [place] [address] Phys: Kofi Bean MD Acct: [id number] Dis Date: Status: REG [facility] PHONE #: [phone] Exam Date: 05/06/2019 1142 FAX #: [phone] Reason: LEFT UPPER LOBE MASS EXAMS: CPT CODE: [id number] US CHST W/MEDIASTINUM 17384 EXAM: Ultrasound screen for left lung biopsy INDICATION: LEFT UPPER LOBE MASS , LOCATION: [facility] - C3 COMPARISON: None TECHNIQUE: Sonographic evaluation of the left thorax performed with multiple static i mages obtained. DISCUSSION: Multiple attempt to vi sualize the pleural-based nodule measuring approximately 11 mm was seen on recent CT PET scan was unsuccessful. Therefore, further attempt to perfo rm ultrasound-guided lung biopsy was aborted. IMPRESSION: Left lung pleural-based nodule was not well seen therefore lung biopsy w as not done. This report was generated by using voice-recognition software. at 1318 Reported and signed by: Baljinder smith M.D. CC: Kofi Bean MD Technologist: Darci Ayoub RDMS [facility] Date/Time/By: 05/06/2019 (1677) : By: GeniaHPD PAGE 1 Signed Report FAX: Mansoor Briones [phone] [place]: St: REG Name: LEONOR VELIZ [facility] : 1950 Age/S: 68/F [address] Unit #: [id number] Loc: [place] [address] Phys: Kofi Bean MD Acct: [id number] Dis Date: Status: [facility] PHONE #: [phone] Exam Date: 2018 1142 FAX #: [phone] Reason: LEFT UPPER LOBE MASS EXAMS: CPT CODE: [id number] CHST W/MEDIASTINUM 89119 <Continued> Orig Print D/T: S: 05/06/2019 (2499) PAGE 2 Signed Report - CT CHEST W/O [id number] 13:10:00 FAX: Kofi Briones [phone] [place]: St: REG Name: LEONOR BARONE [facility] : Age/S: 68/F [address] Unit: [id number] Loc: [place] [address] Phys: Kofi Bean MD Acct: [id number] Dis Date: Status: [facility] PHONE #: [phone] Exam Date: 05/06/2019 1155 FAX #: [phone] Reason: LEFT LUNG NODULE EXAMS: CPT CODE: [id number] CT CHEST W/O CONTRAST 35937 EXAM: CT CHEST WITHOUT CON TRAST HISTORY: 68 years -old Female with LEFT LUNG NODULE LOCATION CODE: C3 COMPARISON: None TECH NIQUE: CT evaluation of the thorax performed with contiguous axial images obtained without IV contrast administration per department protocol. Med iastinal and pulmonary windows utilized with coronal reconstructions also reviewed. Study is limited without IV contrast. Automated exposure reduct ion (Auto mA / Smart mA) was utilized in compliance with ACR image wisely. Total Exam DLP : 289 mGy/cm CTDI vol: 7.5 m Gy FINDINGS: Lines and tubes: None. Previously noted 11 mm nodule noted on the recent PET CT scan dated 04/03/2019 is aga in seen. However the nodule appears to have decreased in size. There is less of a pleural-based footprint than prior study. The margin is more sm ooth and less spiculated. Hounsfield measurement is approximately -29 com patible with a groundglass nodule. No pneumothorax or pleural effu neris. No infiltrate. Heart is of normal size. Osseous structures unremarkable. Ascending and descending thoracic aorta reveal mild atherosclerotic calcification. IMPRESSION: Interval decrease in size and density of a left lo wer lobe subpleural PAGE 1 Signed Report (CONTINUED) FAX: Kofi Briones [phone] [place]: St: REG -------- Name: KERENLEONOR [facility] [place] : 1950 Age/S: 68/F [address] Uni t: [id number] Loc: [place] [address] Phys: Kofi Bean MD Acct: [id number] Dis Date: Status: REG [facility] P JOSÉ #: [phone] Exam Date: 05/06/2019 1153 FAX # : [phone] Reason: LEFT LUNG NODULE E XAMS: CPT CODE: [id number] CT CHEST W/O CONTRAST 26343 <Continued> nodule. We were unable to visualize the lesion under ultrasound. At this point we will hold off on performing CT-guided biopsy due to its improvement in characteristic. Recommend follow-up CT scan in 3 months. Finding were discussed with Dr. Bean immediately after the study was done on 05/06/2019. This report was generated with usage of voice recognition software. at 1310 Reported and signed by: Baljinder Pfeiffer M.D. CC: Kofi Bean MD Technologist: CARISSA VELIZ, RT(R,CT) Trnscrd Dt/Tm: 05/06/2019 (1310) t.ALISR.HPD Orig Print D/T: S: 05/06/2019 (2763 PAGE 2 Signed Report PROTHROMBIN [id number] 19:54:00* Test Item Value Reference Range Interpretation Comments PROTHROMBIN TIME PATIENT (test code = PTP) 10.3 SECONDS 9.2-12.1 N INTERNATIONAL NORMAL RATIO (test code = INR) 1.0 The INR is to be used only for monitoring ORAL ANTICOAGULANTTHERAPY. Indication INR Value1. Prophylaxis/treatment of: Venous Thrombosis, Pulmonary Embolism 2.0 - 3.02. Prevention of systemic embolism from: Tissue heart valves 2.0 - 3.0 Acute myocardial infarction (to present systemic embolism)* 2.0 - 3.0 Valvular heart disease 2.0 - 3.0 Atrial fibrillation 2.0 - 3.03. Mechanical prosthetic valves (high risk) 2.5 - 3.5 * If oral anticoagulant therapy is elected to preventrecurrent myocardial infarction, an INR of 2.5-3.5 isrecommended, consistent with Food and Drug Administrationrecommendations. IS PATIENT ON ANTICOAGULANTS ? YESLIST ANTICOAGULANT/ANTI PLT MEDICATION: Ot herTHROMBOPLASTIN TIME [id number] 19:54:00* Test Item Value Reference Range Interpretation Comments THROMBOPLASTIN TIME PARTIAL (test code = PTT) 26.1 SECONDS 23.4-37. 0 N Therapeutic Range for Heparin EFFECTIVE 7/10/13 Heparin IU/mL aPTT Seconds0.3 64.30.7 88.8 IS PATIENT ON ANTICOAGULANTS ? YESLIST ANTICOAGULANT/ANTI PLT MEDICATION: Ot herBASIC METABOLIC [id number] 17:40:00* Test Item Value Reference Range Interpretation Comments SODIUM (test code = NA) 142 mmol/L 137-145 N POTASSIUM (test code = K) 4.6 mmol/L 3.4-5.0 N CHLORIDE (test code = CL) 108 mmol/L 98-107 H CARBON DIOXIDE (test code = CO2) 24 mmol/L 22-30 N GLUCOSE (test code = GLU) 109 mg/dL 74-106 H BLOOD UREA NITROGEN (test code = BUN) 26 mg/dL 7-17 H GLOMERULAR FILTRATION RATE (test code = GFR) 34 >60 L The estimated glomerular filtration rate is computed usingpatient race, age (>18), sex, and serum creatinine. If anyof the needed data elements are missing the Laboratory cannot compute an estimation of the glomerular filtration rate. CREATININE (test code = CREAT) 1.6 mg/dL 0.5-1.0 H CALCIUM (test code = CA) 9.0 mg/dL 8.4-10.2 N CBC W/AUTO [id number] 17:07:00* Test Item Value Reference Range Interpretation Comments WHITE BLOOD CELL (test code = WBC) 6.9 x10 3/uL 5.0-12.0 N RED BLOOD CELL (test code = RBC) 4.17 x10 6/uL 4.20-5.40 L HEMOGLOBIN (test code = HGB) 12.5 g/dL 12.0-16.0 N HEMATOCRIT (test code = HCT) 40.2 % 36.0-46.0 N MEAN CELL VOLUME (test code = MCV) 96 fL 81-99 N MEAN CELL HGB (test code = MCH) 30.0 pg 27-31 N MEAN CELL HGB CONCENTRATION (test code = MCHC) 31.1 g/dL 33-37 L RED CELL DISTRIBUTION WIDTH (test code = RDW) 14.6 % 11.5-15. 5 N PLATELET COUNT (test code = PLT) 162 x10 3/uL 130-400 N MEAN PLATELET VOLUME (test code = MPV) 11.0 fL 9.4-16.4 N NEUTROPHIL % (test code = NT%) 76.9 % 43-65 H IMMATURE GRANULOCYTE % (test code = IG%) 0.6 % 0.0-2.0 N LYMPHOCYTE % (test code = LY%) 13.5 % 20.5-45.5 L MONOCYTE % (test code = MO%) 8.0 % 5.5-11.7 N EOSINOPHIL % (test code = EO%) 0.7 % 0.9-2.9 L BASOPHIL % (test code = BA%) 0.3 % 0.2-1.0 N NUCLEATED RBC % (test code = NRBC%) 0.0 % 0-1.0 N NEUTROPHIL # (test code = NT#) 5.32 x10 3/uL 2.2-4.8 H IMMATURE GRANULOCYTE # (test code = IG#) 0.04 x10 3/uL 0-0.03 H LYMPHOCYTE # (test code = LY#) 0.93 x10 3/uL 1.3-2.9 L MONOCYTE # (test code = MO#) 0.55 x10 3/uL 0.3-0.8 N EOSINOPHIL # (test code = EO#) 0.05 x10 3/uL 0.0-0.2 N BASOPHIL # (test code = BA#) 0.02 x10 3/uL 0.0-0.1 N - CT CHEST W/O [id number] 13:40:00 FAX: Kofi Briones [phone] [place]: St: REG Name: MARTA BARONEE SYLVESTER [facility] : 9 Age/S: 68/F [address] Unit: [id number] Loc: [place] [address] Phys: Kofi Bean MD Acct: [id number] Dis Date: Status: REG CLI PHONE #: [phone] Exam Date: 03/16/2019 1324 FAX #: [phone] Reason: SOLITARY PULMONARY NODULE EXAMS: CPT CODE: [id number] CT CHEST W/O CONTRAST 31991 EXAM: - CT CHEST W/O CONTRAST HISTORY: SOLITARY PULMONARY NODULE Location code:C3 TECHNIQUE: Axial tomograms through the chest were obtained without intravenous contrast. Coronal and sagittal reformatted images are pro vided. Automated exposure reduction (Auto mA/Smart mA) was utilized in co mpliance with ACR Image Wisely with DLP of 65.32 mGy-cm. COMPARISO N: 01/10/2019 FINDINGS: LUNGS: The average dimension 11 mm no dule in the left upper lobe on series 3 image 23 is unchanged. Patchy vimal undglass opacity in the right lower lobe persists but has diminished. The lungs are otherwise clear. PLEURA: No pleural effusion or pneumothorax. VASCULATURE: Vascular calcifications involve the ao rta and coronary arteries without thoracic aortic aneurysm. TRACHEOBRONCHIAL TREE: The trachea and lobar bronchi are unremarkable. LYMPHATICS: There is no gross adenopathy accounting for lack of intravenous contrast. VISUALIZED ABDOMEN: Cholecystectomy clips are seen. BONES: No acute osseous findings. Compression fra cture at T9 is unchanged. SOFT TISSUES: Unremarkable. OTHER: No significant additional findings. IMPRESSION: 1. The 11 mm pulmonary nodule in the left upper lobe is uncha nged with study dated 01/04/2019. Consider follow-up CT at 3 months, and /or PET-CT, and/or biopsy. PAGE 1 Signed Repo rt (CONTINUED) FAX: Kofi Briones [place]: St: REG Name: KERENLEONOR SYLVESTER [facility] : 1950 Age/S: 68/F [address] Unit: [id number] Loc: [place] [address] Phys: Kofi Baen MD Acct: [id number] Dis Date: Status: REG CLI PHONE #: [phone] Exam Date: 03/16/2019 1324 FAX #: [phone] Reason: SOLITARY PULMONARY NODULE EXAMS: CPT CODE: [id number] CT CHEST W/O CONTRAST 50582 < Continued> 2. Right lower lobe infiltrate/pneumonia has nearly resolved. at 1340 Reported and signed by: Catrachito Liu MD CC: Kofi Bean MD Technologist: Melvina Ramos Trnscrd Dt/Tm: 03/16/2019 (2252) t.ALISR.CB5 Orig Print D/T: S: 03/16/2019 (7533 PAGE 2 Signed Report - CT ABD PELVIS [id number] 17:07:00 [place]: St: REG Name: ERIKA NGUYENLEONOR STEEN SYLVESTER [facility] : 9 Age/S: 68/F [address] Unit: [id number] Loc: [place] [address] Phys: Ximena Prather RED CAP Acct: [id number] Dis Date: Status: REG ER PHONE #: [phone] Exam Date: 03/01/2019 1645 FAX #: [phone] Reason: bleeding through stoma, hx of bowel resection EXAMS: CPT CODE: [id number] CT ABD PELVIS W/CONT 84247 EXAM: - CT ABD PELVIS W/CONT Location code:C3 INDICATION: 68 years -old Female with b leeding through stoma, hx of bowel resection TECHNIQUE: Cont rast - IV contrast was given. No oral contrast was given Portal ve nous phase - abdomen and pelvis No delayed phase images were obtained. Reconstructions - coronal and sagittal planes Automated exposure reduction (Auto mA/Smart mA) was utilized in compliance with ACR Image W isely with DLP of 200.68 mGy-cm. COMPARISON: None FI NDINGS: Statements: None. Thoracic: Included images of the l ower chest demonstrate no abnormalities. Hepatobiliary: The liver is normal without focal lesion. Status post cholecystectomy. No bili domenico dilation. Pancreas: Normal. Spleen: Normal. Adrenals: Normal. Genitourinary: There is a 1.9 cm cyst extending off of the lower right kidney. Evaluation of the bladder is li mited, but no obvious bladder abnormality is present. The uterus is not vi sualized and is likely surgically absent. 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 The appendix is likely surgically absent. Vascular: No evidence of aneurysm or dissection. Atherosclerotic calcifications are seen within the aorta and branch vessels. There is P AGE 1 Signed Report (CONTINUED) [place]: St: REG Name: Isabel VELIZ [facility] : 1950 e/S: 68/F [address] Unit: [id number] Loc: [place] [address] Phys: Ximena Prather RED CAP Acct: [id number] Dis Date: Status: REG ER PHONE #: [phone] Exam Date: 03/01/2019 1645 FAX #: [phone] Reason : bleeding through stoma, hx of bowel resection EXAMS: CPT CODE: [id number] CT ABD PELVIS W/CONT 31439 <Continued> an IVC filter present. Lymphatics: No enlarged lymph nodes by CT size criteria. Bones/Soft Tissues: No acute osseous findings. 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 There is been prior posterior fusion with laminectomies within the mid lumbar spine. No ventral hernias. Peritoneum/Other: No extraluminal air. No extraluminal fluid. IMPRESSION: 1. 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 No abnormalities are seen at the ostomy site to explain the patient's symptoms. 2. Right renal cyst. at 1707 Reported and signed by: Zac Copeland M.D. CC: Technologist: TEJINDER MAIN Trnscrd Dt/Tm: 03/01/2019 (8289) [id number] Orig Print D/T: S: 03/01/2019 (8110 PAGE 2 Signed Report BASIC METABOLIC [id number] 16:27:00* Test Item Value Reference Range Interpretation Comments SODIUM (test code = NA) 141 mmol/L 137-145 N POTASSIUM (test code = K) 4.7 mmol/L 3.4-5.0 N CHLORIDE (test code = CL) 113 mmol/L 98-107 H CARBON DIOXIDE (test code = CO2) 24 mmol/L 22-30 N GLUCOSE (test code = GLU) 118 mg/dL 74-106 H BLOOD UREA NITROGEN (test code = BUN) 22 mg/dL 7-17 H GLOMERULAR FILTRATION RATE (test code = GFR) 43 >60 L The estimated glomerular filtration rate is computed usingpatient race, age (>18), sex, and serum creatinine. If anyof the needed data elements are missing the Laboratory cannot compute an estimation of the glomerular filtration rate. CREATININE (test code = CREAT) 1.3 mg/dL 0.5-1.0 H CALCIUM (test code = CA) 9.3 mg/dL 8.4-10.2 N LIVER FUNCTION [id number] 16:27:00* Test Item Value Reference Range Interpretation Comments TOTAL PROTEIN (test code = PROT) 6.1 g/dL 6.3-8.2 L ALBUMIN (test code = ALB) 3.7 g/dL 3.5-5.0 N BILIRUBIN TOTAL (test code = BILT) 0.3 mg/dL 0.2-1.3 N BILIRUBIN CONJUGATED (test code = BILCON) 0 mg/dL 0-0.3 N ~~~~~~~~~~~~~~~~~~~~~~~~~~~~~~~~~~~~~~~~~~~~~~~~~~~~~~~~~~~~CONJUGATED BILIRUBIN IS THE REPLACEMENT ASSAY FOR DIRECTBILIRUBIN.~~~~~~~~~~~~~~~~~~~~~~~~~~~~~~~~~~~~~~~~~~~~~~~~~~~~~~~~~~~~ BILIRUBIN UNCONJUGATED (test code = BILUNC) 0 mg/dL 0-1.1 N SGOT/AST (test code = AST) 40 U/L 15-46 N SGPT/ALT (test code = ALT) 37 U/L 13-69 N ALKALINE PHOSPHATASE (test code = ALKP) 139 U/L 38-126 H [id number] 16:27:00* Test Item Value Reference Range Interpretation Comments LIPASE (test code = LIP) 91 U/L 23-300 N PROTHROMBIN [id number] 16:26:00* Test Item Value Reference Range Interpretation Comments PROTHROMBIN TIME PATIENT (test code = PTP) 13.4 SECONDS 9.2-12.1 H INTERNATIONAL NORMAL RATIO (test code = INR) 1.2 The INR is to be used only for monitoring ORAL ANTICOAGULANTTHERAPY. Indication INR Value1. Prophylaxis/treatment of: Venous Thrombosis, Pulmonary Embolism 2.0 - 3.02. Prevention of systemic embolism from: Tissue heart valves 2.0 - 3.0 Acute myocardial infarction (to present systemic embolism)* 2.0 - 3.0 Valvular heart disease 2.0 - 3.0 Atrial fibrillation 2.0 - 3.03. Mechanical prosthetic valves (high risk) 2.5 - 3.5 * If oral anticoagulant therapy is elected to preventrecurrent myocardial infarction, an INR of 2.5-3.5 isrecommended, consistent with Food and Drug Administrationrecommendations. BASIC METABOLIC [id number] 16:23:00* Test Item Value Reference Range Interpretation Comments SODIUM (test code = NA) 141 mmol/L 137-145 N POTASSIUM (test code = K) 4.7 mmol/L 3.4-5.0 N CHLORIDE (test code = CL) 113 mmol/L 98-107 H CARBON DIOXIDE (test code = CO2) 24 mmol/L 22-30 N GLUCOSE (test code = GLU) 118 mg/dL 74-106 H BLOOD UREA NITROGEN (test code = BUN) 22 mg/dL 7-17 H GLOMERULAR FILTRATION RATE (test code = GFR) 43 >60 L The estimated glomerular filtration rate is computed usingpatient race, age (>18), sex, and serum creatinine. If anyof the needed data elements are missing the Laboratory cannot compute an estimation of the glomerular filtration rate. CREATININE (test code = CREAT) 1.3 mg/dL 0.5-1.0 H CALCIUM (test code = CA) 9.3 mg/dL 8.4-10.2 N LIVER FUNCTION [id number] 16:23:00* Test Item Value Reference Range Interpretation Comments TOTAL PROTEIN (test code = PROT) 6.1 g/dL 6.3-8.2 L ALBUMIN (test code = ALB) 3.7 g/dL 3.5-5.0 N BILIRUBIN TOTAL (test code = BILT) 0.3 mg/dL 0.2-1.3 N BILIRUBIN CONJUGATED (test code = BILCON) 0 mg/dL 0-0.3 N ~~~~~~~~~~~~~~~~~~~~~~~~~~~~~~~~~~~~~~~~~~~~~~~~~~~~~~~~~~~~CONJUGATED BILIRUBIN IS THE REPLACEMENT ASSAY FOR DIRECTBILIRUBIN.~~~~~~~~~~~~~~~~~~~~~~~~~~~~~~~~~~~~~~~~~~~~~~~~~~~~~~~~~~~~ BILIRUBIN UNCONJUGATED (test code = BILUNC) 0 mg/dL 0-1.1 N SGOT/AST (test code = AST) 40 U/L 15-46 N SGPT/ALT (test code = ALT) 37 U/L 13-69 N ALKALINE PHOSPHATASE (test code = ALKP) 139 U/L 38-126 H [id number] 16:23:00* Test Item Value Reference Range Interpretation Comments LIPASE (test code = LIP) U/L 23-300 CBC W/AUTO [id number] 16:16:00* Test Item Value Reference Range Interpretation Comments WHITE BLOOD CELL (test code = WBC) 5.2 x10 3/uL 5.0-12.0 N RED BLOOD CELL (test code = RBC) 3.71 x10 6/uL 4.20-5.40 L HEMOGLOBIN (test code = HGB) 11.5 g/dL 12.0-16.0 L HEMATOCRIT (test code = HCT) 38.1 % 36.0-46.0 N MEAN CELL VOLUME (test code = MCV) 103 fL 81-99 H MEAN CELL HGB (test code = MCH) 31.0 pg 27-31 N MEAN CELL HGB CONCENTRATION (test code = MCHC) 30.2 g/dL 33-37 L RED CELL DISTRIBUTION WIDTH (test code = RDW) 16.0 % 11.5-15. 5 H PLATELET COUNT (test code = PLT) 166 x10 3/uL 130-400 N MEAN PLATELET VOLUME (test code = MPV) 10.9 fL 9.4-16.4 N NEUTROPHIL % (test code = NT%) 75.9 % 43-65 H IMMATURE GRANULOCYTE % (test code = IG%) 0.6 % 0.0-2.0 N LYMPHOCYTE % (test code = LY%) 16.6 % 20.5-45.5 L MONOCYTE % (test code = MO%) 5.5 % 5.5-11.7 N EOSINOPHIL % (test code = EO%) 0.8 % 0.9-2.9 L BASOPHIL % (test code = BA%) 0.6 % 0.2-1.0 N NUCLEATED RBC % (test code = NRBC%) 0.0 % 0-1.0 N NEUTROPHIL # (test code = NT#) 3.98 x10 3/uL 2.2-4.8 N IMMATURE GRANULOCYTE # (test code = IG#) 0.03 x10 3/uL 0-0.03 N LYMPHOCYTE # (test code = LY#) 0.87 x10 3/uL 1.3-2.9 L MONOCYTE # (test code = MO#) 0.29 x10 3/uL 0.3-0.8 L EOSINOPHIL # (test code = EO#) 0.04 x10 3/uL 0.0-0.2 N BASOPHIL # (test code = BA#) 0.03 x10 3/uL 0.0-0.1 N - XR CHEST 2 [id number] 12:45:00 FAX: Alexus Freire MD [phone] [place]: St: ADM FAX: Carlito Foley [phone] Name: LEONOR VELIZ [facility] : 1950 Age/S: 68/F [address] Unit #: [id number] Loc: [address] [place] [address] Phys: Alexus Elliott MD Acct: [id number] Dis Date: Status: ADM IN PHONE #: [phone] Exam Date: 01/23/2019 1225 FAX #: [phone] Reason: RT LL PNA EXAMS: CPT CODE: [id number] XR CHEST 2 V 61509 Chest x-ray 2 views History: RT LL PNA Comparison: January 17, 2019 Location: R16 Number of images: 2 The heart appears unchanged in size. Pulmonary vasculature is unremarkable. There is linear atelectasis in the right lung base. There is a 12 mm nodule in the left lung. The bones appear unchanged. IMPRESSION: There is linear atelectasis in the right lung base. This appears slightly improved compared to the prior exam. There is a 12 mm nodule in the left lung. This was identified on the recent CT scan of the chest per formed January 10, 2019 and please refer to the recent CT scan report for additional information and recommendations. Electronically S igned by Flavio Antonio MD on 01/23/2019 at 7401 Reported and signed by: Flavio Antonio MD CC: Alexus Elliott MD; Carlito Cordero Technologist: SANTY GOFF Trnscrd Date/Time/By: 01/23 (2482) : By: GeniaPMT PAGE 1 Signed Rep ort FAX: Alexus Freire MD [place]: St: ADM FAX: Carlito Foley [phone] ----- Name : LEONOR VELIZ [facility] : Age/S: 68/F [address] Unit #: [id number] Loc: [address] [place] [address] Phys: Alexus Elliott MD Acct: [id number] Dis Date: Status: ADM IN PHONE #: Exam Date: 01/23/2019 1225 FAX #: Reason: RT LL PNA EXAMS: CPT CODE: [id number] XR CHEST 2 V 51356 <Continued> Orig Print D/T: S: 01/23/2019 (7890) PAGE 2 Signed Report BASIC METABOLIC [id number] 06:24:00* Test Item Value Reference Range Interpretation Comments SODIUM (test code = NA) 141 mmol/L 137-145 N POTASSIUM (test code = K) 4.7 mmol/L 3.4-5.0 N CHLORIDE (test code = CL) 109 mmol/L 98-107 H CARBON DIOXIDE (test code = CO2) 22 mmol/L 22-30 N GLUCOSE (test code = GLU) 86 mg/dL 74-106 N BLOOD UREA NITROGEN (test code = BUN) 24 mg/dL 7-17 H GLOMERULAR FILTRATION RATE (test code = GFR) 43 >60 L The estimated glomerular filtration rate is computed usingpatient race, age (>18), sex, and serum creatinine. If anyof the needed data elements are missing the Laboratory cannot compute an estimation of the glomerular filtration rate. CREATININE (test code = CREAT) 1.3 mg/dL 0.5-1.0 H CALCIUM (test code = CA) 9.4 mg/dL 8.4-10.2 N CBC W/AUTO [id number] 06:00:00* Test Item Value Reference Range Interpretation Comments WHITE BLOOD CELL (test code = WBC) 3.6 x10 3/uL 5.0-12.0 L RED BLOOD CELL (test code = RBC) 2.68 x10 6/uL 4.20-5.40 L HEMOGLOBIN (test code = HGB) 8.0 g/dL 12.0-16.0 L HEMATOCRIT (test code = HCT) 26.0 % 36.0-46.0 L MEAN CELL VOLUME (test code = MCV) 97 fL 81-99 N MEAN CELL HGB (test code = MCH) 29.9 pg 27-31 N MEAN CELL HGB CONCENTRATION (test code = MCHC) 30.8 g/dL 33-37 L RED CELL DISTRIBUTION WIDTH (test code = RDW) 17.8 % 11.5-15. 5 H PLATELET COUNT (test code = PLT) 115 x10 3/uL 130-400 L MEAN PLATELET VOLUME (test code = MPV) 10.9 fL 9.4-16.4 N NEUTROPHIL % (test code = NT%) 72.8 % 43-65 H IMMATURE GRANULOCYTE % (test code = IG%) 0.6 % 0.0-2.0 N LYMPHOCYTE % (test code = LY%) 17.9 % 20.5-45.5 L MONOCYTE % (test code = MO%) 7.0 % 5.5-11.7 N EOSINOPHIL % (test code = EO%) 1.4 % 0.9-2.9 N BASOPHIL % (test code = BA%) 0.3 % 0.2-1.0 N NUCLEATED RBC % (test code = NRBC%) 0.6 % 0-1.0 N NEUTROPHIL # (test code = NT#) 2.61 x10 3/uL 2.2-4.8 N IMMATURE GRANULOCYTE # (test code = IG#) 0.02 x10 3/uL 0-0.03 N LYMPHOCYTE # (test code = LY#) 0.64 x10 3/uL 1.3-2.9 L MONOCYTE # (test code = MO#) 0.25 x10 3/uL 0.3-0.8 L EOSINOPHIL # (test code = EO#) 0.05 x10 3/uL 0.0-0.2 N BASOPHIL # (test code = BA#) 0.01 x10 3/uL 0.0-0.1 N - XR CHEST 2 [id number] 11:56:00 FAX: Alexus Freire MD [phone] [place]: St: ADM FAX: Carlito Foley [phone] Name: LEONOR VELIZ [facility] : 1950 Age/S: 68/F [address] Unit #: [id number] Loc: [address] [place] [address] Phys: Alexus Elliott MD Acct: [id number] Dis Date: Status: ADM IN PHONE #: [phone] Exam Date: 01/17/2019 1151 FAX #: [phone] Reason: MRSA PNA. POSSIBLE RT LUNG ABSCESS EXAMS: CPT CODE: [id number] XR CHEST 2 V 36889 Chest Radiograph History: MRSA PNA. POSSIBLE RT LUNG ABSCESS Comparison: January 09, 2019 Location: R16 A single frontal view of the chest is submitted. The heart appears unchanged in size. Pulmonary vasculature is unremarkable. There is a patchy opacity in the right lung base. The bones appear unchanged. IMPRESSION: Patchy opacity right lung base. This could be due to atelectasis or pneumonia. Compared to the prior exam, there has been little change. at 9381 Reported and signed by: Flavio Antonio MD CC: Alexus Elliott MD; Carlito Cordero Technologist: JANET TERRAZAS RT (R); Adenike Andrade Trnscrd Date/Time/By: 01/17/2019 (2128) : By: GeniaPMT PAGE 1 Signed Report FAX: Alexus Freire MD [phone] [place]: St: ADM FAX: Yas Foley [phone] Name: LEONOR VELIZ [facility] : 1950 Age/S: 68/F [address] Unit #: [id number] Loc: [address] [place] [address] Phys: Alexus Elliott MD Acct: [id number] Dis Date: Status: ADM IN PHONE #: [phone] Exam Date: 01/17/2019 1151 FAX #: [phone] Reason: MRSA PNA. POSSIBLE RT LUNG ABSCESS EXAMS: CPT CODE: [id number] XR CHEST 2 V 67472 < Continued> Orig Print D/T: S: 01/17/2019 (8354) PAGE 2 Signed Report - XR ABDOMEN 1 [id number] 13:02:00 FAX: Carlito Foley [phone] [place]: St: ADM Name: LEONOR JOHNSON [facility] : [birth year] Age/S: 68/F [address] Unit #: [id number] Loc: [address] [place] [address] Phys: Carlito Cordero Acct: [id number] Dis Date: Status: ADM IN PHONE #: [phone] Exam Date: 01/15/2019 1240 FAX #: [phone] Reason: no colostomy output X 1 day EXAMS: CPT CODE: [id number] XR ABDOMEN 1 V 22967 EXAM: - XR ABDOMEN 1 V HISTORY: No colostomy output for one day Location code:C3 COMPARISON: 12/24/2018 FINDINGS: One view of the abdomen is provided. Lumbar hardware at L3-4, cholecystectomy clips, and IVC filter are unchanged. There is minimal amount of scattered retained fecal material throughout the colon. The bowel gas pattern is nonobstructive. No suspicious calcifications or acute osseous abnormalities are seen. IMPRESSION: 1. No acute findings. at 4702 Reported and signed by: Catrachito Liu MD CC: Carlito Cordero Technologist: Joselyn Adams Trnscrd Date/Time/By: 01/15/2019 (9791) : By: GeniaCB5 PAGE 1 Signed Report FAX: Carlito Foley [phone] [place]: St: ADM Name: LEONOR JOHNSON [facility] : [birth year] Age/S: 68/F [address] Unit #: [id number] Loc: [address] [place] [address] Phys: Carlito Cordero Acct: [id number] Dis Date: Status: ADM IN PHONE #: [phone] Exam Date: 01/15/2019 1240 FAX #: [phone] Reason: no colostomy output X 1 day EXAMS: CPT CODE: [id number] XR ABDOMEN 1 V 52849 <Continued> Orig Print D/T: S: 01/15/2019 (6414) PAGE 2 Signed Report BASIC METABOLIC [id number] 06:07:00* Test Item Value Reference Range Interpretation Comments SODIUM (test code = NA) 140 mmol/L 137-145 N POTASSIUM (test code = K) 4.3 mmol/L 3.4-5.0 N CHLORIDE (test code = CL) 104 mmol/L 98-107 N CARBON DIOXIDE (test code = CO2) 25 mmol/L 22-30 N GLUCOSE (test code = GLU) 84 mg/dL 74-106 N BLOOD UREA NITROGEN (test code = BUN) 42 mg/dL 7-17 H GLOMERULAR FILTRATION RATE (test code = GFR) 34 >60 L The estimated glomerular filtration rate is computed usingpatient race, age (>18), sex, and serum creatinine. If anyof the needed data elements are missing the Laboratory cannot compute an estimation of the glomerular filtration rate. CREATININE (test code = CREAT) 1.6 mg/dL 0.5-1.0 H CALCIUM (test code = CA) 8.6 mg/dL 8.4-10.2 N [id number] 06:07:00* Test Item Value Reference Range Interpretation Comments MAGNESIUM (test code = MAG) 2.2 mg/dL 1.6-2.3 N BASIC METABOLIC [id number] 06:06:00* Test Item Value Reference Range Interpretation Comments SODIUM (test code = NA) 140 mmol/L 137-145 N POTASSIUM (test code = K) 4.3 mmol/L 3.4-5.0 N CHLORIDE (test code = CL) 104 mmol/L 98-107 N CARBON DIOXIDE (test code = CO2) 25 mmol/L 22-30 N GLUCOSE (test code = GLU) 84 mg/dL 74-106 N BLOOD UREA NITROGEN (test code = BUN) 42 mg/dL 7-17 H GLOMERULAR FILTRATION RATE (test code = GFR) 34 >60 L The estimated glomerular filtration rate is computed usingpatient race, age (>18), sex, and serum creatinine. If anyof the needed data elements are missing the Laboratory cannot compute an estimation of the glomerular filtration rate. CREATININE (test code = CREAT) 1.6 mg/dL 0.5-1.0 H CALCIUM (test code = CA) 8.6 mg/dL 8.4-10.2 N [id number] 06:06:00* Test Item Value Reference Range Interpretation Comments MAGNESIUM (test code = MAG) mg/dL 1.6-2.3 CBC W/AUTO [id number] 05:58:00* Test Item Value Reference Range Interpretation Comments WHITE BLOOD CELL (test code = WBC) 5.0 x10 3/uL 5.0-12.0 N RED BLOOD CELL (test code = RBC) 2.65 x10 6/uL 4.20-5.40 L HEMOGLOBIN (test code = HGB) 8.0 g/dL 12.0-16.0 L HEMATOCRIT (test code = HCT) 25.8 % 36.0-46.0 L MEAN CELL VOLUME (test code = MCV) 97 fL 81-99 N MEAN CELL HGB (test code = MCH) 30.2 pg 27-31 N MEAN CELL HGB CONCENTRATION (test code = MCHC) 31.0 g/dL 33-37 L RED CELL DISTRIBUTION WIDTH (test code = RDW) 18.2 % 11.5-15. 5 H PLATELET COUNT (test code = PLT) 131 x10 3/uL 130-400 N MEAN PLATELET VOLUME (test code = MPV) 11.0 fL 9.4-16.4 N NEUTROPHIL % (test code = NT%) 78.4 % 43-65 H IMMATURE GRANULOCYTE % (test code = IG%) 1.0 % 0.0-2.0 N LYMPHOCYTE % (test code = LY%) 13.4 % 20.5-45.5 L MONOCYTE % (test code = MO%) 5.4 % 5.5-11.7 L EOSINOPHIL % (test code = EO%) 1.4 % 0.9-2.9 N BASOPHIL % (test code = BA%) 0.4 % 0.2-1.0 N NUCLEATED RBC % (test code = NRBC%) 0.8 % 0-1.0 N NEUTROPHIL # (test code = NT#) 3.92 x10 3/uL 2.2-4.8 N IMMATURE GRANULOCYTE # (test code = IG#) 0.05 x10 3/uL 0-0.03 H LYMPHOCYTE # (test code = LY#) 0.67 x10 3/uL 1.3-2.9 L MONOCYTE # (test code = MO#) 0.27 x10 3/uL 0.3-0.8 L EOSINOPHIL # (test code = EO#) 0.07 x10 3/uL 0.0-0.2 N BASOPHIL # (test code = BA#) 0.02 x10 3/uL 0.0-0.1 N COMPREHENSIVE METABOLIC [id number] 07:43:00* Test Item Value Reference Range Interpretation Comments SODIUM (test code = NA) 141 mmol/L 137-145 N POTASSIUM (test code = K) 4.1 mmol/L 3.4-5.0 N CHLORIDE (test code = CL) 102 mmol/L 98-107 N CARBON DIOXIDE (test code = CO2) 27 mmol/L 22-30 N GLUCOSE (test code = GLU) 75 mg/dL 74-106 N BLOOD UREA NITROGEN (test code = BUN) 45 mg/dL 7-17 H GLOMERULAR FILTRATION RATE (test code = GFR) 32 >60 L The estimated glomerular filtration rate is computed usingpatient race, age (>18), sex, and serum creatinine. If anyof the needed data elements are missing the Laboratory cannot compute an estimation of the glomerular filtration rate. CREATININE (test code = CREAT) 1.7 mg/dL 0.5-1.0 H TOTAL PROTEIN (test code = PROT) 6.2 g/dL 6.3-8.2 L ALBUMIN (test code = ALB) 3.4 g/dL 3.5-5.0 L CALCIUM (test code = CA) 8.9 mg/dL 8.4-10.2 N BILIRUBIN TOTAL (test code = BILT) 0.3 mg/dL 0.2-1.3 N BILIRUBIN CONJUGATED (test code = BILCON) 0 mg/dL 0-0.3 N ~~~~~~~~~~~~~~~~~~~~~~~~~~~~~~~~~~~~~~~~~~~~~~~~~~~~~~~~~~~~CONJUGATED BILIRUBIN IS THE REPLACEMENT ASSAY FOR DIRECTBILIRUBIN.~~~~~~~~~~~~~~~~~~~~~~~~~~~~~~~~~~~~~~~~~~~~~~~~~~~~~~~~~~~~ BILIRUBIN UNCONJUGATED (test code = BILUNC) 0 mg/dL 0-1.1 N SGOT/AST (test code = AST) 33 U/L 15-46 N SGPT/ALT (test code = ALT) 22 U/L 13-69 N ALKALINE PHOSPHATASE (test code = ALKP) 137 U/L 38-126 H [id number] 07:43:00* Test Item Value Reference Range Interpretation Comments PREALBUMIN (test code = PREALB) 49.99 mg/dL 17.6-36.0 H COMPREHENSIVE METABOLIC [id number] 07:00:00* Test Item Value Reference Range Interpretation Comments SODIUM (test code = NA) 141 mmol/L 137-145 N POTASSIUM (test code = K) 4.1 mmol/L 3.4-5.0 N CHLORIDE (test code = CL) 102 mmol/L 98-107 N CARBON DIOXIDE (test code = CO2) 27 mmol/L 22-30 N GLUCOSE (test code = GLU) 75 mg/dL 74-106 N BLOOD UREA NITROGEN (test code = BUN) 45 mg/dL 7-17 H GLOMERULAR FILTRATION RATE (test code = GFR) 32 >60 L The estimated glomerular filtration rate is computed usingpatient race, age (>18), sex, and serum creatinine. If anyof the needed data elements are missing the Laboratory cannot compute an estimation of the glomerular filtration rate. CREATININE (test code = CREAT) 1.7 mg/dL 0.5-1.0 H TOTAL PROTEIN (test code = PROT) 6.2 g/dL 6.3-8.2 L ALBUMIN (test code = ALB) 3.4 g/dL 3.5-5.0 L CALCIUM (test code = CA) 8.9 mg/dL 8.4-10.2 N BILIRUBIN TOTAL (test code = BILT) 0.3 mg/dL 0.2-1.3 N BILIRUBIN CONJUGATED (test code = BILCON) 0 mg/dL 0-0.3 N ~~~~~~~~~~~~~~~~~~~~~~~~~~~~~~~~~~~~~~~~~~~~~~~~~~~~~~~~~~~~CONJUGATED BILIRUBIN IS THE REPLACEMENT ASSAY FOR DIRECTBILIRUBIN.~~~~~~~~~~~~~~~~~~~~~~~~~~~~~~~~~~~~~~~~~~~~~~~~~~~~~~~~~~~~ BILIRUBIN UNCONJUGATED (test code = BILUNC) 0 mg/dL 0-1.1 N SGOT/AST (test code = AST) 33 U/L 15-46 N SGPT/ALT (test code = ALT) 22 U/L 13-69 N ALKALINE PHOSPHATASE (test code = ALKP) 137 U/L 38-126 H [id number] 07:00:00* Test Item Value Reference Range Interpretation Comments PREALBUMIN (test code = PREALB) mg/dL 17.6-36.0 PROTHROMBIN [id number] 06:51:00* Test Item Value Reference Range Interpretation Comments PROTHROMBIN TIME PATIENT (test code = PTP) 13.3 SECONDS 9.2-12.1 H INTERNATIONAL NORMAL RATIO (test code = INR) 1.2 The INR is to be used only for monitoring ORAL ANTICOAGULANTTHERAPY. Indication INR Value1. Prophylaxis/treatment of: Venous Thrombosis, Pulmonary Embolism 2.0 - 3.02. Prevention of systemic embolism from: Tissue heart valves 2.0 - 3.0 Acute myocardial infarction (to present systemic embolism)* 2.0 - 3.0 Valvular heart disease 2.0 - 3.0 Atrial fibrillation 2.0 - 3.03. Mechanical prosthetic valves (high risk) 2.5 - 3.5 * If oral anticoagulant therapy is elected to preventrecurrent myocardial infarction, an INR of 2.5-3.5 isrecommended, consistent with Food and Drug Administrationrecommendations. THROMBOPLASTIN TIME [id number] 06:51:00* Test Item Value Reference Range Interpretation Comments THROMBOPLASTIN TIME PARTIAL (test code = PTT) 25.5 SECONDS 23.4-37. 0 N Therapeutic Range for Heparin EFFECTIVE 04/01/13 Heparin IU/mL aPTT Seconds0.3 64.30.7 88.8 CBC W/AUTO [id number] 06:39:00* Test Item Value Reference Range Interpretation Comments WHITE BLOOD CELL (test code = WBC) 5.4 x10 3/uL 5.0-12.0 N RED BLOOD CELL (test code = RBC) 2.71 x10 6/uL 4.20-5.40 L HEMOGLOBIN (test code = HGB) 8.2 g/dL 12.0-16.0 L HEMATOCRIT (test code = HCT) 26.3 % 36.0-46.0 L MEAN CELL VOLUME (test code = MCV) 97 fL 81-99 N MEAN CELL HGB (test code = MCH) 30.3 pg 27-31 N MEAN CELL HGB CONCENTRATION (test code = MCHC) 31.2 g/dL 33-37 L RED CELL DISTRIBUTION WIDTH (test code = RDW) 18.4 % 11.5-15. 5 H PLATELET COUNT (test code = PLT) 139 x10 3/uL 130-400 N MEAN PLATELET VOLUME (test code = MPV) 11.4 fL 9.4-16.4 N NEUTROPHIL % (test code = NT%) 82.2 % 43-65 H IMMATURE GRANULOCYTE % (test code = IG%) 0.9 % 0.0-2.0 N LYMPHOCYTE % (test code = LY%) 10.2 % 20.5-45.5 L MONOCYTE % (test code = MO%) 5.4 % 5.5-11.7 L EOSINOPHIL % (test code = EO%) 0.7 % 0.9-2.9 L BASOPHIL % (test code = BA%) 0.6 % 0.2-1.0 N NUCLEATED RBC % (test code = NRBC%) 0.0 % 0-1.0 N NEUTROPHIL # (test code = NT#) 4.44 x10 3/uL 2.2-4.8 N IMMATURE GRANULOCYTE # (test code = IG#) 0.05 x10 3/uL 0-0.03 H LYMPHOCYTE # (test code = LY#) 0.55 x10 3/uL 1.3-2.9 L MONOCYTE # (test code = MO#) 0.29 x10 3/uL 0.3-0.8 L EOSINOPHIL # (test code = EO#) 0.04 x10 3/uL 0.0-0.2 N BASOPHIL # (test code = BA#) 0.03 x10 3/uL 0.0-0.1 N URINALYSIS [id number] 18:04:00* Test Item Value Reference Range Interpretation Comments UA COLOR (test code = COLU) Straw Yellow UA APPEARANCE (test code = APPU) Clear Clear UA GLUCOSE DIPSTICK (test code = DGLUU) Negative Negative UA BILIRUBIN DIPSTICK (test code = BILU) Negative Negative UA KETONE DIPSTICK (test code = KETU) Negative mg/dL Negative UA SPECIFIC GRAVITY (test code = SGU) 1.005 <1.030 UA BLOOD DIPSTICK (test code = JULIANE) Negative Negative UA PH DIPSTICK (test code = DIGNA) 7.0 5.0-8.0 UA PROTEIN DIPSTICK (test code = PROU) NEGATIVE mg/dL Negative UA UROBILINOGEN DIPSTICK (test code = URO) Negative mg/dL Negative UA NITRITE DIPSTICK (test code = CHILO) Negative Negative UA LEUKOCYTE ESTERASE DIPSTICK (test code = LEUU) NEGATIVE Nega tive UA WBC (test code = WBCU) 0-3 /HPF <4-5 UA RBC (test code = RBCU) 0-3 /HPF <4-5 UA BACTERIA (test code = BACU) Rare /HPF None-Rare UA MUCUS (test code = MUCU) Rare /LPF <Rare A [id number] 10:50:00* Test Item Value Reference Range Interpretation Comments GLUBED (test code = GLUBED) 124 MG/DL 74-106 H [id number] 06:36:00* Test Item Value Reference Range Interpretation Comments GLUBED (test code = GLUBED) 86 MG/DL 74-106 N [id number] 06:36:00* Test Item Value Reference Range Interpretation Comments GLUBED (test code = GLUBED) 116 MG/DL 74-106 H [id number] 16:45:00* Test Item Value Reference Range Interpretation Comments GLUBED (test code = GLUBED) 104 MG/DL 74-106 N [id number] 11:19:00* Test Item Value Reference Range Interpretation Comments GLUBED (test code = GLUBED) 90 MG/DL 74-106 N [id number] 10:47:00* Test Item Value Reference Range Interpretation Comments GLUBED (test code = GLUBED) 112 MG/DL 74-106 H [id number] 07:18:00* Test Item Value Reference Range Interpretation Comments GLUBED (test code = GLUBED) 72 MG/DL 74-106 L BASIC METABOLIC [id number] 05:45:00* Test Item Value Reference Range Interpretation Comments SODIUM (test code = NA) 140 mmol/L 137-145 N POTASSIUM (test code = K) 4.5 mmol/L 3.4-5.0 N CHLORIDE (test code = CL) 101 mmol/L 98-107 N CARBON DIOXIDE (test code = CO2) 26 mmol/L 22-30 N GLUCOSE (test code = GLU) 95 mg/dL 74-106 N BLOOD UREA NITROGEN (test code = BUN) 50 mg/dL 7-17 H GLOMERULAR FILTRATION RATE (test code = GFR) 37 >60 L The estimated glomerular filtration rate is computed usingpatient race, age (>18), sex, and serum creatinine. If anyof the needed data elements are missing the Laboratory cannot compute an estimation of the glomerular filtration rate. CREATININE (test code = CREAT) 1.5 mg/dL 0.5-1.0 H CALCIUM (test code = CA) 9.0 mg/dL 8.4-10.2 N CBC W/AUTO [id number] 05:29:00* Test Item Value Reference Range Interpretation Comments WHITE BLOOD CELL (test code = WBC) 10.6 x10 3/uL 5.0-12.0 N RED BLOOD CELL (test code = RBC) 2.82 x10 6/uL 4.20-5.40 L HEMOGLOBIN (test code = HGB) 8.3 g/dL 12.0-16.0 L HEMATOCRIT (test code = HCT) 27.2 % 36.0-46.0 L MEAN CELL VOLUME (test code = MCV) 97 fL 81-99 N MEAN CELL HGB (test code = MCH) 29.4 pg 27-31 N MEAN CELL HGB CONCENTRATION (test code = MCHC) 30.5 g/dL 33-37 L RED CELL DISTRIBUTION WIDTH (test code = RDW) 18.6 % 11.5-15. 5 H PLATELET COUNT (test code = PLT) 170 x10 3/uL 130-400 N MEAN PLATELET VOLUME (test code = MPV) 11.4 fL 9.4-16.4 N NEUTROPHIL % (test code = NT%) 90.1 % 43-65 H IMMATURE GRANULOCYTE % (test code = IG%) 0.9 % 0.0-2.0 N LYMPHOCYTE % (test code = LY%) 5.9 % 20.5-45.5 L MONOCYTE % (test code = MO%) 2.2 % 5.5-11.7 L EOSINOPHIL % (test code = EO%) 0.6 % 0.9-2.9 L BASOPHIL % (test code = BA%) 0.3 % 0.2-1.0 N NUCLEATED RBC % (test code = NRBC%) 0.0 % 0-1.0 N NEUTROPHIL # (test code = NT#) 9.51 x10 3/uL 2.2-4.8 H IMMATURE GRANULOCYTE # (test code = IG#) 0.10 x10 3/uL 0-0.03 H LYMPHOCYTE # (test code = LY#) 0.62 x10 3/uL 1.3-2.9 L MONOCYTE # (test code = MO#) 0.23 x10 3/uL 0.3-0.8 L EOSINOPHIL # (test code = EO#) 0.06 x10 3/uL 0.0-0.2 N BASOPHIL # (test code = BA#) 0.03 x10 3/uL 0.0-0.1 N - CT CHEST W/O [id number] 20:18:00 FAX: Leanna England [phone] [place]: St: [facility] FAX: Chemo Rivera MD [phone] Name: LEONOR VELIZN [facility] : 1950 Age/S: 68/F [address] Unit: [id number] Loc: [address] [place] [address] Phys: Leanna White MD Acct: [id number] Dis Date: Status: ADM IN PHONE #: [phone] Exam Date: 01/10/20192014 FAX #: [phone] Reason: pna EXAMS: CPT CODE: [id number] CT CHEST W/O CONTRAST 63507 EXAM: CHEST CT WITHOUT INTRAVENOUS CONTRAST CLINICAL INFORMATION: Pneumonia TECHNIQUE: A volumetric CT acquisition of the chest was obtained from the thoracic inlet to the upper abdomen, without the administration of intravenous contrast. One or more of the following dose reduction techniques were used: Automated expo sure control, adjustment of the mA and/or kV according to patient size, an d/or utilization of iterative reconstruction technique. Total DLP: 115.98 mGy-cm. Comparison: 01/03/2019 Location: R 16 FINDINGS: Lines and Tubes: None Mediastinum and Vasculature: There are no intrathoracic lymph nodes meeting CT criteri a for enlargement. The heart is not enlarged. There is no pericardial eff usion.. The thoracic aorta and pulmonary artery are normal in size. There are arterial atherosclerotic calcifications, including coronary artery dis ease as seen previously. Airways/Pleura/Lungs: The central airways are patent and without filling defects. There is no pleural effusion or p neumothorax. There is a stable 12 mm left upper lobe nodule. There is inc reased consolidation at the right lower lobe with air bronchograms and increased foci of air. There is left basilar atelectasis as seen previ ously. Bones: There is no acute osseous abnormality. Again seen i s a chronic compression fracture at T9. There are healed left 3rd and 4th rib fractures. 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 Abdomen: T he gallbladder is surgically absent. A too small to characterize 4 mm hep atic hypodensity is indeterminate, stable.. PAGE 1 Signed Report (CONTINUED) FAX: Leanna Elena [phone] [place]: St: ADM FAX: Chemo Rivera MD [phone] Name: LEONOR VELIZ [facility] : 1950 Age/S: 68/F [address] Unit: [id number] Loc: [address] [place] [address] Phys: Leanna White MD Acct: [id number] Dis Date: Status: ADM IN PHONE #: [phone] Exam Date: 01/10/20192014 FAX #: [phone] Reason: pna EXAMS: CPT CODE: [id number] CT CHEST W/O CONTRAST 83358 <Continued> IMPRESSION: Worsening right lower lobe consolidation with increased internal foci of air, this may reflect a developing abscess. Stable 12 mm left upper lobe nodule. A follow-up CT examination in 3 months is recommended. Chronic T9 vertebral body compression fracture. Healed left 3rd and 4th rib fractures. at 2018 Reported and s igned by: Storm Kaplan MD CC: Leanna Yusuf; Chemo Velazquez MD Technologist: James Unger EZ Trnscrd Dt/Tm: 01/10/2019 (2018) t.[id number] Orig Print D/T: S: 01/10/2019 (2020 PAGE 2 Signed Report GLUBED 2019-01-10 15:38:00* Test Item Value Reference Range Interpretation Comments GLUBED (test code = GLUBED) 87 MG/DL 74-106 N [id number] 11:36:00* Test Item Value Reference Range Interpretation Comments GLUBED (test code = GLUBED) 121 MG/DL 74-106 H [id number] 10:30:00* Test Item Value Reference Range Interpretation Comments GLUBED (test code = GLUBED) 84 MG/DL 74-106 N BASIC METABOLIC [id number] 06:44:00* Test Item Value Reference Range Interpretation Comments SODIUM (test code = NA) 139 mmol/L 137-145 N POTASSIUM (test code = K) 4.5 mmol/L 3.4-5.0 N CHLORIDE (test code = CL) 100 mmol/L 98-107 N CARBON DIOXIDE (test code = CO2) 26 mmol/L 22-30 N GLUCOSE (test code = GLU) 95 mg/dL 74-106 N BLOOD UREA NITROGEN (test code = BUN) 48 mg/dL 7-17 H GLOMERULAR FILTRATION RATE (test code = GFR) 40 >60 L The estimated glomerular filtration rate is computed usingpatient race, age (>18), sex, and serum creatinine. If anyof the needed data elements are missing the Laboratory cannot compute an estimation of the glomerular filtration rate. CREATININE (test code = CREAT) 1.4 mg/dL 0.5-1.0 H CALCIUM (test code = CA) 9.3 mg/dL 8.4-10.2 N [id number] 06:44:00* Test Item Value Reference Range Interpretation Comments MAGNESIUM (test code = MAG) 2.5 mg/dL 1.6-2.3 H CBC W/AUTO [id number] 06:28:00* Test Item Value Reference Range Interpretation Comments WHITE BLOOD CELL (test code = WBC) 9.8 x10 3/uL 5.0-12.0 N RED BLOOD CELL (test code = RBC) 3.00 x10 6/uL 4.20-5.40 L HEMOGLOBIN (test code = HGB) 9.0 g/dL 12.0-16.0 L HEMATOCRIT (test code = HCT) 29.3 % 36.0-46.0 L MEAN CELL VOLUME (test code = MCV) 98 fL 81-99 N MEAN CELL HGB (test code = MCH) 30.0 pg 27-31 N MEAN CELL HGB CONCENTRATION (test code = MCHC) 30.7 g/dL 33-37 L RED CELL DISTRIBUTION WIDTH (test code = RDW) 18.7 % 11.5-15. 5 H PLATELET COUNT (test code = PLT) 191 x10 3/uL 130-400 N MEAN PLATELET VOLUME (test code = MPV) 11.2 fL 9.4-16.4 N NEUTROPHIL % (test code = NT%) 85.9 % 43-65 H IMMATURE GRANULOCYTE % (test code = IG%) 0.7 % 0.0-2.0 N LYMPHOCYTE % (test code = LY%) 6.9 % 20.5-45.5 L MONOCYTE % (test code = MO%) 5.1 % 5.5-11.7 L EOSINOPHIL % (test code = EO%) 0.9 % 0.9-2.9 N BASOPHIL % (test code = BA%) 0.5 % 0.2-1.0 N NUCLEATED RBC % (test code = NRBC%) 0.0 % 0-1.0 N NEUTROPHIL # (test code = NT#) 8.44 x10 3/uL 2.2-4.8 H IMMATURE GRANULOCYTE # (test code = IG#) 0.07 x10 3/uL 0-0.03 H LYMPHOCYTE # (test code = LY#) 0.68 x10 3/uL 1.3-2.9 L MONOCYTE # (test code = MO#) 0.50 x10 3/uL 0.3-0.8 N EOSINOPHIL # (test code = EO#) 0.09 x10 3/uL 0.0-0.2 N BASOPHIL # (test code = BA#) 0.05 x10 3/uL 0.0-0.1 N [id number] 20:37:00* Test Item Value Reference Range Interpretation Comments GLUBED (test code = GLUBED) 109 MG/DL 74-106 H [id number] 19:49:00* Test Item Value Reference Range Interpretation Comments MAGNESIUM (test code = MAG) 2.2 mg/dL 1.6-2.3 N BASIC METABOLIC [id number] 19:05:00* Test Item Value Reference Range Interpretation Comments SODIUM (test code = NA) 136 mmol/L 137-145 L POTASSIUM (test code = K) 3.9 mmol/L 3.4-5.0 N CHLORIDE (test code = CL) 99 mmol/L 98-107 N CARBON DIOXIDE (test code = CO2) 24 mmol/L 22-30 N GLUCOSE (test code = GLU) 115 mg/dL 74-106 H BLOOD UREA NITROGEN (test code = BUN) 45 mg/dL 7-17 H GLOMERULAR FILTRATION RATE (test code = GFR) 37 >60 L The estimated glomerular filtration rate is computed usingpatient race, age (>18), sex, and serum creatinine. If anyof the needed data elements are missing the Laboratory cannot compute an estimation of the glomerular filtration rate. CREATININE (test code = CREAT) 1.5 mg/dL 0.5-1.0 H CALCIUM (test code = CA) 9.1 mg/dL 8.4-10.2 N [id number] 15:32:00* Test Item Value Reference Range Interpretation Comments GLUBED (test code = GLUBED) 118 MG/DL 74-106 H [id number] 10:32:00* Test Item Value Reference Range Interpretation Comments GLUBED (test code = GLUBED) 143 MG/DL 74-106 H - XR CHEST 1 [id number] 07:09:00 FAX: Chemo Rivera MD [phone] [place]: St: ADM FAX: Patricia Cadet [phone] Name: LEONOR VELIZ [facility] : 1950 Age/S: 68/F [address] Unit #: [id number] Loc: [address] [address] Phys: Patricia Bell RED [place] Acct: [id number] Dis Date: Status: ADM IN PHONE #: [phone] Exam Date: 01/09/2019 05 FAX #: [phone] Reason: pneumonia EXAMS: CPT CODE: [id number] XR CHEST 1 V 64553 EXAM: - XR CHEST 1 V LOCATION: C3 HISTORY: pneumonia COMPARISON: 01/07/2019 FINDINGS: Single view of the chest. No indwelling lines or tubes. No pneumothorax. Unchanged mild right basilar infiltrate. No pleural effusions are present. The mediastinal contours are unremarkable. No acute osseous findings are present. IM PRESSION: Unchanged mild right basilar infiltrate. Shaq avila Signed by Ignacio Nieves MD on 01/09/2019 at 0709 R eported and signed by: Ignacio Nieves MD CC: Chemo Yusuf; Patricia Bell RED CAP Technologist: VALENTINA JAQUEZ RT (R); Virgil Alas Trnscrd Date/Time/By: 01/09/2019 (0709) : By: Silvia V2 PAGE 1 Signed Report FAX: Chemo Rivera MD [phone] [place]: St: ADM FAX: aPtricia Cadet [phone] Name: LEONOR VELIZ [facility] : 1950 Age/S: 68/F [address] Unit #: [id number] Loc: [address] [address] Phys: Patricia Bell RED [place] Acct: [id number] Dis Date: Status: ADM IN PHONE #: [phone] Exam Date: 535 FAX #: [phone] Reason: pneumonia EXAMS: CPT CODE: [id number] XR CHEST 1 V 28448 <Continued> Orig Print D/T: S: 01/09/2019 (0712) PAGE 2 Signed Report [id number] 06:39:00* Test Item Value Reference Range Interpretation Comments GLUBED (test code = GLUBED) 100 MG/DL 74-106 N COMPREHENSIVE METABOLIC [id number] 05:17:00* Test Item Value Reference Range Interpretation Comments SODIUM (test code = NA) 138 mmol/L 137-145 N POTASSIUM (test code = K) 4.5 mmol/L 3.4-5.0 N CHLORIDE (test code = CL) 101 mmol/L 98-107 N CARBON DIOXIDE (test code = CO2) 21 mmol/L 22-30 L GLUCOSE (test code = GLU) 105 mg/dL 74-106 N BLOOD UREA NITROGEN (test code = BUN) 44 mg/dL 7-17 H GLOMERULAR FILTRATION RATE (test code = GFR) 40 >60 L The estimated glomerular filtration rate is computed usingpatient race, age (>18), sex, and serum creatinine. If anyof the needed data elements are missing the Laboratory cannot compute an estimation of the glomerular filtration rate. CREATININE (test code = CREAT) 1.4 mg/dL 0.5-1.0 H TOTAL PROTEIN (test code = PROT) 6.3 g/dL 6.3-8.2 N ALBUMIN (test code = ALB) 3.4 g/dL 3.5-5.0 L CALCIUM (test code = CA) 9.2 mg/dL 8.4-10.2 N BILIRUBIN TOTAL (test code = BILT) 0.2 mg/dL 0.2-1.3 N BILIRUBIN CONJUGATED (test code = BILCON) 0 mg/dL 0-0.3 N ~~~~~~~~~~~~~~~~~~~~~~~~~~~~~~~~~~~~~~~~~~~~~~~~~~~~~~~~~~~~CONJUGATED BILIRUBIN IS THE REPLACEMENT ASSAY FOR DIRECTBILIRUBIN.~~~~~~~~~~~~~~~~~~~~~~~~~~~~~~~~~~~~~~~~~~~~~~~~~~~~~~~~~~~~ BILIRUBIN UNCONJUGATED (test code = BILUNC) 0 mg/dL 0-1.1 N SGOT/AST (test code = AST) 18 U/L 15-46 N SGPT/ALT (test code = ALT) 21 U/L 13-69 N ALKALINE PHOSPHATASE (test code = ALKP) 156 U/L 38-126 H Last PROBNP result: 68815 g/dL on 01/05/19 - [id number] 05:17:00* Test Item Value Reference Range Interpretation Comments MAGNESIUM (test code = MAG) 1.8 mg/dL 1.6-2.3 N Last PROBNP result: 64175 g/dL on 01/05/19 - 0541NT PRO-BRAIN NATRIURETIC PEPTI 2019-01-09 05:17:00* Test Item Value Reference Range Interpretation Comments NT PRO-BRAIN NATRIURETIC PEPTI (test code = PROBNP) 918 pg/mL 0- 299 H ~~~~~~~~~~~~~~~~~~~~~~~~~~~~~~~~~~~~~~~~~~~~~~~~~~~~~~~~~~~~NT PRO-BNP IS THE REPLACEMENT ASSAY FOR BNP.~~~~~~~~~~~~~~~~~~~~~~~~~~~~~~~~~~~~~~~~~~~~~~~~~~~~~~~~~~~~RULE-IN CUT POINTS FOR PATIENTS WITH SUSPECTED ACUTECONGESTIVE HEART FAILURE:<50 yrs old: >450 pg/mL50-75 yrs old: >900 pg/mL>75 yrs old: >1800 pg/mLA positive bias may occur on patients taking BIOTINsupplements. Last PROBNP result: 90532 g/dL on 01/05/19 - 0541COMPREHENSIVE METABOLIC PANEL 2019-01-09 05:14:00* Test Item Value Reference Range Interpretation Comments SODIUM (test code = NA) 138 mmol/L 137-145 N POTASSIUM (test code = K) 4.5 mmol/L 3.4-5.0 N CHLORIDE (test code = CL) 101 mmol/L 98-107 N CARBON DIOXIDE (test code = CO2) 21 mmol/L 22-30 L GLUCOSE (test code = GLU) 105 mg/dL 74-106 N BLOOD UREA NITROGEN (test code = BUN) 44 mg/dL 7-17 H GLOMERULAR FILTRATION RATE (test code = GFR) 40 >60 L The estimated glomerular filtration rate is computed usingpatient race, age (>18), sex, and serum creatinine. If anyof the needed data elements are missing the Laboratory cannot compute an estimation of the glomerular filtration rate. CREATININE (test code = CREAT) 1.4 mg/dL 0.5-1.0 H TOTAL PROTEIN (test code = PROT) 6.3 g/dL 6.3-8.2 N ALBUMIN (test code = ALB) 3.4 g/dL 3.5-5.0 L CALCIUM (test code = CA) 9.2 mg/dL 8.4-10.2 N BILIRUBIN TOTAL (test code = BILT) 0.2 mg/dL 0.2-1.3 N BILIRUBIN CONJUGATED (test code = BILCON) 0 mg/dL 0-0.3 N ~~~~~~~~~~~~~~~~~~~~~~~~~~~~~~~~~~~~~~~~~~~~~~~~~~~~~~~~~~~~CONJUGATED BILIRUBIN IS THE REPLACEMENT ASSAY FOR DIRECTBILIRUBIN.~~~~~~~~~~~~~~~~~~~~~~~~~~~~~~~~~~~~~~~~~~~~~~~~~~~~~~~~~~~~ BILIRUBIN UNCONJUGATED (test code = BILUNC) 0 mg/dL 0-1.1 N SGOT/AST (test code = AST) 18 U/L 15-46 N SGPT/ALT (test code = ALT) 21 U/L 13-69 N ALKALINE PHOSPHATASE (test code = ALKP) 156 U/L 38-126 H Last PROBNP result: 19334 g/dL on 01/05/[id number] 05:14:00* Test Item Value Reference Range Interpretation Comments MAGNESIUM (test code = MAG) 1.8 mg/dL 1.6-2.3 N Last PROBNP result: 85708 g/dL on 01/05/19540NT PRO-BRAIN NATRIURETIC PEPTI 2019-01-09 05:14:00* Test Item Value Reference Range Interpretation Comments NT PRO-BRAIN NATRIURETIC PEPTI (test code = PROBNP) pg/mL 0- 299 Last PROBNP result: 51173 g/dL on 01/05/19540COMPREHENSIVE METABOLIC PANEL 2019-01-09 05:13:00* Test Item Value Reference Range Interpretation Comments SODIUM (test code = NA) 138 mmol/L 137-145 N POTASSIUM (test code = K) 4.5 mmol/L 3.4-5.0 N CHLORIDE (test code = CL) 101 mmol/L 98-107 N CARBON DIOXIDE (test code = CO2) 21 mmol/L 22-30 L GLUCOSE (test code = GLU) 105 mg/dL 74-106 N BLOOD UREA NITROGEN (test code = BUN) 44 mg/dL 7-17 H GLOMERULAR FILTRATION RATE (test code = GFR) 40 >60 L The estimated glomerular filtration rate is computed usingpatient race, age (>18), sex, and serum creatinine. If anyof the needed data elements are missing the Laboratory cannot compute an estimation of the glomerular filtration rate. CREATININE (test code = CREAT) 1.4 mg/dL 0.5-1.0 H TOTAL PROTEIN (test code = PROT) 6.3 g/dL 6.3-8.2 N ALBUMIN (test code = ALB) 3.4 g/dL 3.5-5.0 L CALCIUM (test code = CA) 9.2 mg/dL 8.4-10.2 N BILIRUBIN TOTAL (test code = BILT) 0.2 mg/dL 0.2-1.3 N BILIRUBIN CONJUGATED (test code = BILCON) 0 mg/dL 0-0.3 N ~~~~~~~~~~~~~~~~~~~~~~~~~~~~~~~~~~~~~~~~~~~~~~~~~~~~~~~~~~~~CONJUGATED BILIRUBIN IS THE REPLACEMENT ASSAY FOR DIRECTBILIRUBIN.~~~~~~~~~~~~~~~~~~~~~~~~~~~~~~~~~~~~~~~~~~~~~~~~~~~~~~~~~~~~ BILIRUBIN UNCONJUGATED (test code = BILUNC) 0 mg/dL 0-1.1 N SGOT/AST (test code = AST) 18 U/L 15-46 N SGPT/ALT (test code = ALT) 21 U/L 13-69 N ALKALINE PHOSPHATASE (test code = ALKP) 156 U/L 38-126 H Last PROBNP result: 72400 g/dL on 01/05/19 - [id number] 05:13:00* Test Item Value Reference Range Interpretation Comments MAGNESIUM (test code = MAG) mg/dL 1.6-2.3 Last PROBNP result: 37307 g/dL on 01/05/19 - 0541NT PRO-BRAIN NATRIURETIC PEPTI 2019-01-09 05:13:00* Test Item Value Reference Range Interpretation Comments NT PRO-BRAIN NATRIURETIC PEPTI (test code = PROBNP) pg/mL 0- 299 Last PROBNP result: 97915 g/dL on 01/05/19 - 0541CBC W/AUTO [id number] 04:49:00* Test Item Value Reference Range Interpretation Comments WHITE BLOOD CELL (test code = WBC) 10.9 x10 3/uL 5.0-12.0 N RED BLOOD CELL (test code = RBC) 2.87 x10 6/uL 4.20-5.40 L HEMOGLOBIN (test code = HGB) 8.6 g/dL 12.0-16.0 L HEMATOCRIT (test code = HCT) 27.7 % 36.0-46.0 L MEAN CELL VOLUME (test code = MCV) 97 fL 81-99 N MEAN CELL HGB (test code = MCH) 30.0 pg 27-31 N MEAN CELL HGB CONCENTRATION (test code = MCHC) 31.0 g/dL 33-37 L RED CELL DISTRIBUTION WIDTH (test code = RDW) 18.7 % 11.5-15. 5 H PLATELET COUNT (test code = PLT) 181 x10 3/uL 130-400 N MEAN PLATELET VOLUME (test code = MPV) 11.1 fL 9.4-16.4 N NEUTROPHIL % (test code = NT%) 86.8 % 43-65 H IMMATURE GRANULOCYTE % (test code = IG%) 1.4 % 0.0-2.0 N LYMPHOCYTE % (test code = LY%) 5.0 % 20.5-45.5 L MONOCYTE % (test code = MO%) 5.8 % 5.5-11.7 N EOSINOPHIL % (test code = EO%) 0.7 % 0.9-2.9 L BASOPHIL % (test code = BA%) 0.3 % 0.2-1.0 N NUCLEATED RBC % (test code = NRBC%) 0.0 % 0-1.0 N NEUTROPHIL # (test code = NT#) 9.44 x10 3/uL 2.2-4.8 H IMMATURE GRANULOCYTE # (test code = IG#) 0.15 x10 3/uL 0-0.03 H LYMPHOCYTE # (test code = LY#) 0.54 x10 3/uL 1.3-2.9 L MONOCYTE # (test code = MO#) 0.63 x10 3/uL 0.3-0.8 N EOSINOPHIL # (test code = EO#) 0.08 x10 3/uL 0.0-0.2 N BASOPHIL # (test code = BA#) 0.03 x10 3/uL 0.0-0.1 N [id number] 20:04:00* Test Item Value Reference Range Interpretation Comments GLUBED (test code = GLUBED) 85 MG/DL 74-106 N [id number] 17:01:00* Test Item Value Reference Range Interpretation Comments GLUBED (test code = GLUBED) 97 MG/DL 74-106 N [id number] 11:39:00* Test Item Value Reference Range Interpretation Comments GLUBED (test code = GLUBED) 113 MG/DL 74-106 H [id number] 07:14:00* Test Item Value Reference Range Interpretation Comments HAPTOGLOBIN (test code = HAPT) 461 mg/dL 34-200 A Performed At: [facility] [id number] Sanjai MD Ph:[phone] SENT 2 MLS SERUM REFRIGERTAED TO [facility] [id number] 06:10:00* Test Item Value Reference Range Interpretation Comments GLUBED (test code = GLUBED) 83 MG/DL 74-106 N BASIC METABOLIC [id number] 06:02:00* Test Item Value Reference Range Interpretation Comments SODIUM (test code = NA) 138 mmol/L 137-145 N POTASSIUM (test code = K) 4.0 mmol/L 3.4-5.0 N CHLORIDE (test code = CL) 104 mmol/L 98-107 N CARBON DIOXIDE (test code = CO2) 21 mmol/L 22-30 L GLUCOSE (test code = GLU) 132 mg/dL 74-106 H BLOOD UREA NITROGEN (test code = BUN) 29 mg/dL 7-17 H GLOMERULAR FILTRATION RATE (test code = GFR) 43 >60 L The estimated glomerular filtration rate is computed usingpatient race, age (>18), sex, and serum creatinine. If anyof the needed data elements are missing the Laboratory cannot compute an estimation of the glomerular filtration rate. CREATININE (test code = CREAT) 1.3 mg/dL 0.5-1.0 H CALCIUM (test code = CA) 9.0 mg/dL 8.4-10.2 N [id number] 06:02:00* Test Item Value Reference Range Interpretation Comments MAGNESIUM (test code = MAG) 2.0 mg/dL 1.6-2.3 N CBC W/MANUAL [id number] 05:06:00* Test Item Value Reference Range Interpretation Comments WHITE BLOOD CELL (test code = WBC) 11.9 x10 3/uL 5.0-12.0 N RED BLOOD CELL (test code = RBC) 2.41 x10 6/uL 4.20-5.40 L HEMOGLOBIN (test code = HGB) 7.4 g/dL 12.0-16.0 L HEMATOCRIT (test code = HCT) 23.7 % 36.0-46.0 L MEAN CELL VOLUME (test code = MCV) 98 fL 81-99 N MEAN CELL HGB (test code = MCH) 30.7 pg 27-31 N MEAN CELL HGB CONCENTRATION (test code = MCHC) 31.2 g/dL 33-37 L RED CELL DISTRIBUTION WIDTH (test code = RDW) 18.6 % 11.5-15. 5 H PLATELET COUNT (test code = PLT) 152 x10 3/uL 130-400 N MEAN PLATELET VOLUME (test code = MPV) 10.7 fL 9.4-16.4 N TOTAL CELLS COUNTED (test code = TCC) 100 #CELLS SEGMENTED NEUTROPHILS (test code = SEG) 93 % 43-65 H LYMPHOCYTE (test code = LYMPH) 2 % 20.5-45.5 L ATYPICAL LYMPH (test code = ALYMPH) 1 % 0-1 N MONOCYTE (test code = MON) 3 % 5.5-11.7 L EOSINOPHIL (test code = EOS) 1 % 0.9-2.9 N MYELOCYTE (test code = MYELO) 1 % 0-0 H HYPOCHROMIA (test code = HYPO) 1+ NONE SEEN A ANISOCYTOSIS (test code = ANISO) 1+ NONE SEEN A MICROCYTOSIS (test code = MICR) 1+ NONE SEEN A PLATELET ESTIMATE (test code = PLTEST) ADEQUATE ADEQUATE PLATELET MORPHOLOGY (test code = PLTMORPH) NORMAL NORMAL - XR CHEST 1 [id number] 04:42:00 FAX: Kofi Briones [phone] [place]: [facility]: ADM FAX: Patricia Moreno MD [phone] Name: LEONOR VELIZ [facility] : 1950 Age/S: 68/F [address] Unit #: [id number] Loc: C.ICU[address] [place] [address] Phys: Kofi Bean MD Acct: [id number] Dis Date: Status: ADM IN PHONE #: [phone] Exam Date: 01/07/2019416 FAX #: [phone] Reason: chf EXAMS: CPT CODE: [id number] XR CHEST 1 V 96805 Exam: Chest portable erect Location: F6 History: chf Comparison: 01/05/2019 Findings: No change has occurred in the aeration of the lungs. The heart size is unchanged. The mediastinal silhouette is unremarkable. The bony thorax is intact. Impression: Stable chest/no change. at 0442 Reported and signed by: Ismael Contreras CC: Kofi Bean MD; Patricia Hendrix MD Technologist: MONIQUE MCCLURE RT (R) Trnscrd Date/Time/By: 01/07/2019 (0442) : By: Genia PAGE 1 Signed Report FAX: Kofi Briones [phone] [place]: St: ADM FAX: Patricia Moreno MD [phone] Name: LEONOR BARONE [facility] : [birth year] Age/S: 68/F [address] Unit #: [id number] Loc: C.ICU0 [place] [address] Phys: Kofi Bean MD Acct: [id number] Dis Date: Status: ADM IN PHONE #: [phone] Exam Date: 01/07/2019416 FAX #: [phone] Reason: chf EXAMS: CPT CODE: [id number] XR CHEST 1 V 00576 <Continued> Orig Print D/T: S: 01/07/2019 (0445) PAGE 2 Signed Report CBC W/MANUAL [id number] 04:31:00* Test Item Value Reference Range Interpretation Comments WHITE BLOOD CELL (test code = WBC) 11.9 x10 3/uL 5.0-12.0 N RED BLOOD CELL (test code = RBC) 2.41 x10 6/uL 4.20-5.40 L HEMOGLOBIN (test code = HGB) 7.4 g/dL 12.0-16.0 L HEMATOCRIT (test code = HCT) 23.7 % 36.0-46.0 L MEAN CELL VOLUME (test code = MCV) 98 fL 81-99 N MEAN CELL HGB (test code = MCH) 30.7 pg 27-31 N MEAN CELL HGB CONCENTRATION (test code = MCHC) 31.2 g/dL 33-37 L RED CELL DISTRIBUTION WIDTH (test code = RDW) 18.6 % 11.5-15. 5 H PLATELET COUNT (test code = PLT) 152 x10 3/uL 130-400 N MEAN PLATELET VOLUME (test code = MPV) 10.7 fL 9.4-16.4 N TOTAL CELLS COUNTED (test code = TCC) #CELLS SEGMENTED NEUTROPHILS (test code = SEG) % 43-65 LYMPHOCYTE (test code = LYMPH) % 20.5-45.5 CBC W/MANUAL [id number] 04:31:00* Test Item Value Reference Range Interpretation Comments WHITE BLOOD CELL (test code = WBC) 11.9 x10 3/uL 5.0-12.0 N RED BLOOD CELL (test code = RBC) 2.41 x10 6/uL 4.20-5.40 L HEMOGLOBIN (test code = HGB) 7.4 g/dL 12.0-16.0 L HEMATOCRIT (test code = HCT) 23.7 % 36.0-46.0 L MEAN CELL VOLUME (test code = MCV) 98 fL 81-99 N MEAN CELL HGB (test code = MCH) 30.7 pg 27-31 N MEAN CELL HGB CONCENTRATION (test code = MCHC) 31.2 g/dL 33-37 L RED CELL DISTRIBUTION WIDTH (test code = RDW) 18.6 % 11.5-15. 5 H PLATELET COUNT (test code = PLT) 152 x10 3/uL 130-400 N MEAN PLATELET VOLUME (test code = MPV) 10.7 fL 9.4-16.4 N TOTAL CELLS COUNTED (test code = TCC) #CELLS SEGMENTED NEUTROPHILS (test code = SEG) % 43-65 LYMPHOCYTE (test code = LYMPH) % 20.5-45.5 BASIC METABOLIC [id number] 04:07:00* Test Item Value Reference Range Interpretation Comments SODIUM (test code = NA) 140 mmol/L 137-145 N POTASSIUM (test code = K) 4.1 mmol/L 3.4-5.0 N CHLORIDE (test code = CL) 110 mmol/L 98-107 H CARBON DIOXIDE (test code = CO2) 20 mmol/L 22-30 L GLUCOSE (test code = GLU) 87 mg/dL 74-106 N BLOOD UREA NITROGEN (test code = BUN) 26 mg/dL 7-17 H GLOMERULAR FILTRATION RATE (test code = GFR) 40 >60 L The estimated glomerular filtration rate is computed usingpatient race, age (>18), sex, and serum creatinine. If anyof the needed data elements are missing the Laboratory cannot compute an estimation of the glomerular filtration rate. CREATININE (test code = CREAT) 1.4 mg/dL 0.5-1.0 H CALCIUM (test code = CA) 9.0 mg/dL 8.4-10.2 N [id number] 04:07:00* Test Item Value Reference Range Interpretation Comments MAGNESIUM (test code = MAG) 1.7 mg/dL 1.6-2.3 N [id number] 22:51:00* Test Item Value Reference Range Interpretation Comments GLUBED (test code = GLUBED) 113 MG/DL 74-106 H [id number] 22:51:00* Test Item Value Reference Range Interpretation Comments GLUBED (test code = GLUBED) 101 MG/DL 74-106 N [id number] 22:51:00* Test Item Value Reference Range Interpretation Comments GLUBED (test code = GLUBED) 68 MG/DL 74-106 L [id number] 19:43:00* Test Item Value Reference Range Interpretation Comments GLUBED (test code = GLUBED) 81 MG/DL 74-106 N - XR SWLW FUNC W/C [id number] 12:31:00 FAX: Alfred Martinez [phone] [place]: St: ADM FAX: Patricia Moreno MD [phone] Name: LEONOR VELIZ [facility] : 1950 Age/S: 68/F [address] Unit #: [id number] Loc: C.ICU0 [place] [address] Phys: Alfred Ragsdale RED CAP Acct: [id number] Dis Date: Status: ADM IN PHONE #: [phone] Exam Date: 01/06/2019 1152 FAX #: [phone] Reason: SYMPTOMATIC AT BEDSIDE EXAMS: CPT CODE: [id number] XR SWLW FUNC W/C V 52647 EXAM: Modified barium swallow INDICATION: SYMPTOMATIC AT BEDSIDE LOCATION: [facility] - C3 COMPARISON: None TECHNIQUE: Triphasic barium was given to the patient orally in the upright position. Multiple images were obtained and submitted for evaluation. Study was evaluated at real-time. The study was performed with the presence of speech pathologist adm inistering the oral contrast. FLUOROSCOPIC TIME: 48 seconds NUMBER OF IMAGES OBTAINED, 1 FINDINGS: Anterior cervical spine fusion of C4-C5. The liquid barium phase demonstrate no pene tration. No evidence of aspiration seen. [place] barium phas e were administered via teaspoon and cup. No evidence of aspiration or pe netration. The pur?e and cracker laced with barium phase demonstra gilbert no evidence of penetration or aspiration. 13 mm barium p ill was able to traverse the pharynx without any difficulty. IMPRESSION: 1. No evidence of aspiration or penetration. at 1231 Reported and signed by: Baljinder Pfeiffer M.D. PAGE 1 Signed Report (CONTINUED) FAX: Alfred Martinez [phone] [place]: St: ADM FAX: Patricia Moreno MD [phone] Name: LEONOR VELIZ [facility] : 1950 Age/S: 68/F [address] Unit #: [id number] Loc: C.ICU0 [place] [address] Phys: Alfred Ragsdale NP Acct: [id number] Dis Date: Status: ADM IN PHONE #: [phone] Exam Date: 01/06/2019 1152 FAX #: [phone] Reason: SYMPTOMATIC AT BEDSIDE EXAMS: CPT CODE: [id number] XR SWLW FUNC W/C V 03792 <Continued> CC: Alfred Ragsdale RED CAP; Patricia Hendrix MD Technologist: Bennett Lopez [facility] Date/Time/By: 01/06/2019 (2642) : By: Vinny PAGE 2 Signed Report FAX: Alfred Martinez [phone] [place]: St: ADM FAX: Patricia Moreno MD [phone] Name: LEONOR VELIZ [facility] : 1950 Age/S: 68/F [address] Unit #: [id number] Loc: C.ICU0 [place] [address] Phys: Alfred Ragsdale RED CAP Acct: [id number] Dis Date: Status: ADM IN PHONE #: [phone] Exam Date: 01/06/2019 1152 FAX #: [phone] Reason: SYMPTOMATIC AT BEDSIDE EXAMS: CPT CODE: [id number] XR SWLW FUNC W/C V 16964 < Continued> Orig Print D/T: S: 01/06/2019 (7474) PAGE 3 Signed Report [id number] 09:23:00* Test Item Value Reference Range Interpretation Comments GLUBED (test code = GLUBED) 108 MG/DL 74-106 H [id number] 09:23:00* Test Item Value Reference Range Interpretation Comments GLUBED (test code = GLUBED) 84 MG/DL 74-106 N POC ARTERIAL BLOOD [id number] 09:07:00* Test Item Value Reference Range Interpretation Comments POC ARTERIAL BLOOD GAS PH (test code = POCPHA) 7.369 7.35-7. 45 N POC ARTERIAL BLOOD GAS PCO2 (test code = QKDLQF4W) 20.3 mmHg 35- 45 LL POC ARTERIAL BLOOD GAS PO2 (test code = PNJSS2U) 87 mmHg 80-90 N POC HCO3 ARTERIAL (test code = MWWAGJ9R) 11.7 mmol/L 22.0-24.0 L POC BASE EXCESS (test code = POCBEA) -14 mmol/L -2.0-2.0 L POC O2 SATURATION (test code = POCO2S) 97 % 95-98 N ABG DELIVERY (test code = KEVAN) Cannula DR NOTIFIED ABG SITE (test code = SITEA) L Miguel IBANEZ TEST (test code = ALLENS) Pass CBC W/MANUAL [id number] 23:53:00* Test Item Value Reference Range Interpretation Comments WHITE BLOOD CELL (test code = WBC) 14.0 x10 3/uL 5.0-12.0 H RED BLOOD CELL (test code = RBC) 2.37 x10 6/uL 4.20-5.40 L HEMOGLOBIN (test code = HGB) 7.3 g/dL 12.0-16.0 L HEMATOCRIT (test code = HCT) 23.7 % 36.0-46.0 L MEAN CELL VOLUME (test code = MCV) 100 fL 81-99 H MEAN CELL HGB (test code = MCH) 30.8 pg 27-31 N MEAN CELL HGB CONCENTRATION (test code = MCHC) 30.8 g/dL 33-37 L RED CELL DISTRIBUTION WIDTH (test code = RDW) 18.7 % 11.5-15. 5 H PLATELET COUNT (test code = PLT) 163 x10 3/uL 130-400 N MEAN PLATELET VOLUME (test code = MPV) 10.6 fL 9.4-16.4 N TOTAL CELLS COUNTED (test code = TCC) 100 #CELLS SEGMENTED NEUTROPHILS (test code = SEG) 92 % 43-65 H LYMPHOCYTE (test code = LYMPH) 2 % 20.5-45.5 L ATYPICAL LYMPH (test code = ALYMPH) 2 % 0-1 H MONOCYTE (test code = MON) 2 % 5.5-11.7 L EOSINOPHIL (test code = EOS) 2 % 0.9-2.9 N HYPOCHROMIA (test code = HYPO) 1+ NONE SEEN A ANISOCYTOSIS (test code = ANISO) 1+ NONE SEEN A MICROCYTOSIS (test code = MICR) 1+ NONE SEEN A MACROCYTOSIS (test code = MACR) 1+ NONE SEEN A PLATELET ESTIMATE (test code = PLTEST) ADEQUATE ADEQUATE PLATELET MORPHOLOGY (test code = PLTMORPH) LARGE PLATELETS SEEN NOR MAL LACTIC [id number] 23:45:00* Test Item Value Reference Range Interpretation Comments LACTIC ACID (test code = LACT) 1.5 mmol/L 0.7-2.0 N BASIC METABOLIC [id number] 23:45:00* Test Item Value Reference Range Interpretation Comments SODIUM (test code = NA) 140 mmol/L 137-145 N POTASSIUM (test code = K) 4.1 mmol/L 3.4-5.0 N CHLORIDE (test code = CL) 115 mmol/L 98-107 H CARBON DIOXIDE (test code = CO2) 16 mmol/L 22-30 L GLUCOSE (test code = GLU) 109 mg/dL 74-106 H BLOOD UREA NITROGEN (test code = BUN) 31 mg/dL 7-17 H GLOMERULAR FILTRATION RATE (test code = GFR) 30 >60 L The estimated glomerular filtration rate is computed usingpatient race, age (>18), sex, and serum creatinine. If anyof the needed data elements are missing the Laboratory cannot compute an estimation of the glomerular filtration rate. CREATININE (test code = CREAT) 1.8 mg/dL 0.5-1.0 H CALCIUM (test code = CA) 8.3 mg/dL 8.4-10.2 L LACTIC DEHYDROGENASE(LDH)2019-01-05 23:45:00* Test Item Value Reference Range Interpretation Comments LACTIC DEHYDROGENASE(LDH) (test code = LDH) 425 U/L 313-618 N Please be advised of the updated reference ranges for the new Chemistry instrumentation. [id number] 23:45:00* Test Item Value Reference Range Interpretation Comments MAGNESIUM (test code = MAG) 1.6 mg/dL 1.6-2.3 N BASIC METABOLIC [id number] 23:44:00* Test Item Value Reference Range Interpretation Comments SODIUM (test code = NA) 140 mmol/L 137-145 N POTASSIUM (test code = K) 4.1 mmol/L 3.4-5.0 N CHLORIDE (test code = CL) 115 mmol/L 98-107 H CARBON DIOXIDE (test code = CO2) 16 mmol/L 22-30 L GLUCOSE (test code = GLU) 109 mg/dL 74-106 H BLOOD UREA NITROGEN (test code = BUN) 31 mg/dL 7-17 H GLOMERULAR FILTRATION RATE (test code = GFR) 30 >60 L The estimated glomerular filtration rate is computed usingpatient race, age (>18), sex, and serum creatinine. If anyof the needed data elements are missing the Laboratory cannot compute an estimation of the glomerular filtration rate. CREATININE (test code = CREAT) 1.8 mg/dL 0.5-1.0 H CALCIUM (test code = CA) 8.3 mg/dL 8.4-10.2 L LACTIC DEHYDROGENASE(LDH)2019-01-05 23:44:00* Test Item Value Reference Range Interpretation Comments LACTIC DEHYDROGENASE(LDH) (test code = LDH) U/L 313-618 [id number] 23:44:00* Test Item Value Reference Range Interpretation Comments MAGNESIUM (test code = MAG) mg/dL 1.6-2.3 CBC W/MANUAL [id number] 23:35:00* Test Item Value Reference Range Interpretation Comments WHITE BLOOD CELL (test code = WBC) 14.0 x10 3/uL 5.0-12.0 H RED BLOOD CELL (test code = RBC) 2.37 x10 6/uL 4.20-5.40 L HEMOGLOBIN (test code = HGB) 7.3 g/dL 12.0-16.0 L HEMATOCRIT (test code = HCT) 23.7 % 36.0-46.0 L MEAN CELL VOLUME (test code = MCV) 100 fL 81-99 H MEAN CELL HGB (test code = MCH) 30.8 pg 27-31 N MEAN CELL HGB CONCENTRATION (test code = MCHC) 30.8 g/dL 33-37 L RED CELL DISTRIBUTION WIDTH (test code = RDW) 18.7 % 11.5-15. 5 H PLATELET COUNT (test code = PLT) 163 x10 3/uL 130-400 N MEAN PLATELET VOLUME (test code = MPV) 10.6 fL 9.4-16.4 N TOTAL CELLS COUNTED (test code = TCC) #CELLS SEGMENTED NEUTROPHILS (test code = SEG) % 43-65 LYMPHOCYTE (test code = LYMPH) % 20.5-45.5 CBC W/MANUAL [id number] 23:35:00* Test Item Value Reference Range Interpretation Comments WHITE BLOOD CELL (test code = WBC) 14.0 x10 3/uL 5.0-12.0 H RED BLOOD CELL (test code = RBC) 2.37 x10 6/uL 4.20-5.40 L HEMOGLOBIN (test code = HGB) 7.3 g/dL 12.0-16.0 L HEMATOCRIT (test code = HCT) 23.7 % 36.0-46.0 L MEAN CELL VOLUME (test code = MCV) 100 fL 81-99 H MEAN CELL HGB (test code = MCH) 30.8 pg 27-31 N MEAN CELL HGB CONCENTRATION (test code = MCHC) 30.8 g/dL 33-37 L RED CELL DISTRIBUTION WIDTH (test code = RDW) 18.7 % 11.5-15. 5 H PLATELET COUNT (test code = PLT) 163 x10 3/uL 130-400 N MEAN PLATELET VOLUME (test code = MPV) 10.6 fL 9.4-16.4 N TOTAL CELLS COUNTED (test code = TCC) #CELLS SEGMENTED NEUTROPHILS (test code = SEG) % 43-65 LYMPHOCYTE (test code = LYMPH) % 20.5-45.5 RETICULOCYTE [id number] 23:27:00* Test Item Value Reference Range Interpretation Comments RETICULOCYTE COUNT (test code = RETICA) 2.7 % 0.5-1.5 H - XR CHEST 1 [id number] 22:33:00 FAX: Carlito Foley [phone] [place]: St: DIS FAX: Michelle Oseguera NP [phone] FAX: Kofi Briones [phone] Name: LEONOR VELIZ [facility] : 1950 Age/S: 68/F [address] Unit #: [id number] Loc: C.ICU0 [place] [address] Phys: Michelle Bloom NP Acct: [id number] Dis Date: 20190105 Status: DIS IN PH ONE #: [phone] Exam Date: 01/05/2019 2220 FAX #: [phone] Reason: sob EXAMS: CPT CODE: [id number] XR CHEST 1 V 21238 HISTOR Y: Shortness of breath Location: C3 COMPARISON:01/03/2019 FINDINGS: Heart size and vascularity are within normal limits. Patchy right basilar opacity is demonstrated. There is no pneumothorax. No other changes. IMPRESSION: 1. Patchy right basilar opacity most compatible with pneumonia. Fo llow-up to resolution recommended. at 2233 Reported and signed by: Dk Galindo MD CC: Carlito Cordero; Michelle Bloom NP; Isabel Bean MD Technologist: RT Portillo (R) Trnscrd Date/Time/By: 01/05/2019 (7565) : By: [email or web address] PAGE 1 Signed Report FAX: Carlito Estrella [phone] [place]: St: DIS FAX: Criselda Oseguera NP [phone] FAX: Kofi Briones [phone] ------ Name: LEONOR VELIZ [facility] : [birth year] Age/S: 68/F [address] Unit #: [id number] Loc: C.ICU0 [place] [address] Phys: Michelle Bloom NP Acct: [id number] Dis Date: 20190105 Status: DIS IN PHONE #: [phone] Exam Date: 01/05/2019 2220 FAX #: [phone] Reason: sob EXAMS: CPT CODE: [id number] XR CHEST 1 V 62388 <Continued> Orig Print D/T: S: 01/05/2019 (0040) PAGE 2 Signed Report NT PRO-BRAIN NATRIURETIC [id number] 11:50:00* Test Item Value Reference Range Interpretation Comments NT PRO-BRAIN NATRIURETIC PEPTI (test code = PROBNP) 03878 pg/mL 0- 299 H ~~~~~~~~~~~~~~~~~~~~~~~~~~~~~~~~~~~~~~~~~~~~~~~~~~~~~~~~~~~~NT PRO-BNP IS THE REPLACEMENT ASSAY FOR BNP.~~~~~~~~~~~~~~~~~~~~~~~~~~~~~~~~~~~~~~~~~~~~~~~~~~~~~~~~~~~~RULE-IN CUT POINTS FOR PATIENTS WITH SUSPECTED ACUTECONGESTIVE HEART FAILURE:<50 yrs old: >450 pg/mL50-75 yrs old: >900 pg/mL>75 yrs old: >1800 pg/mLA positive bias may occur on patients taking BIOTINsupplements. Last PROBNP result: 95406 g/dL on 12/09/18 - 0543CBC W/MANUAL [id number] 07:11:00* Test Item Value Reference Range Interpretation Comments WHITE BLOOD CELL (test code = WBC) 15.0 x10 3/uL 5.0-12.0 H RED BLOOD CELL (test code = RBC) 2.42 x10 6/uL 4.20-5.40 L HEMOGLOBIN (test code = HGB) 7.5 g/dL 12.0-16.0 L HEMATOCRIT (test code = HCT) 24.1 % 36.0-46.0 L MEAN CELL VOLUME (test code = MCV) 100 fL 81-99 H MEAN CELL HGB (test code = MCH) 31.0 pg 27-31 N MEAN CELL HGB CONCENTRATION (test code = MCHC) 31.1 g/dL 33-37 L RED CELL DISTRIBUTION WIDTH (test code = RDW) 19.2 % 11.5-15. 5 H PLATELET COUNT (test code = PLT) 147 x10 3/uL 130-400 N MEAN PLATELET VOLUME (test code = MPV) 10.3 fL 9.4-16.4 N TOTAL CELLS COUNTED (test code = TCC) 100 #CELLS SEGMENTED NEUTROPHILS (test code = SEG) 76 % 43-65 H BAND NEUTROPHIL (test code = BAND) 16 % 0-1 H LYMPHOCYTE (test code = LYMPH) 3 % 20.5-45.5 L ATYPICAL LYMPH (test code = ALYMPH) 3 % 0-1 H MONOCYTE (test code = MON) 2 % 5.5-11.7 L NUCLEATED RED BLOOD CELL (test code = NRBC) 0.8 /100WBC 0-0 H POLYCHROMASIA (test code = POLC) 1+ NONE SEEN A ANISOCYTOSIS (test code = ANISO) 1+ NONE SEEN A MICROCYTOSIS (test code = MICR) 1+ NONE SEEN A OVALOCYTES (test code = OVAL) 1+ NONE SEEN A PLATELET ESTIMATE (test code = PLTEST) ADEQUATE ADEQUATE PLATELET MORPHOLOGY (test code = PLTMORPH) NORMAL NORMAL BASIC METABOLIC [id number] 06:19:00* Test Item Value Reference Range Interpretation Comments SODIUM (test code = NA) 143 mmol/L 137-145 N POTASSIUM (test code = K) 4.2 mmol/L 3.4-5.0 N CHLORIDE (test code = CL) 119 mmol/L 98-107 H CARBON DIOXIDE (test code = CO2) 14 mmol/L 22-30 L GLUCOSE (test code = GLU) 89 mg/dL 74-106 N BLOOD UREA NITROGEN (test code = BUN) 31 mg/dL 7-17 H GLOMERULAR FILTRATION RATE (test code = GFR) 32 >60 L The estimated glomerular filtration rate is computed usingpatient race, age (>18), sex, and serum creatinine. If anyof the needed data elements are missing the Laboratory cannot compute an estimation of the glomerular filtration rate. CREATININE (test code = CREAT) 1.7 mg/dL 0.5-1.0 H CALCIUM (test code = CA) 7.7 mg/dL 8.4-10.2 L CBC W/MANUAL [id number] 05:57:00* Test Item Value Reference Range Interpretation Comments WHITE BLOOD CELL (test code = WBC) 15.0 x10 3/uL 5.0-12.0 H RED BLOOD CELL (test code = RBC) 2.42 x10 6/uL 4.20-5.40 L HEMOGLOBIN (test code = HGB) 7.5 g/dL 12.0-16.0 L HEMATOCRIT (test code = HCT) 24.1 % 36.0-46.0 L MEAN CELL VOLUME (test code = MCV) 100 fL 81-99 H MEAN CELL HGB (test code = MCH) 31.0 pg 27-31 N MEAN CELL HGB CONCENTRATION (test code = MCHC) 31.1 g/dL 33-37 L RED CELL DISTRIBUTION WIDTH (test code = RDW) 19.2 % 11.5-15. 5 H PLATELET COUNT (test code = PLT) 147 x10 3/uL 130-400 N MEAN PLATELET VOLUME (test code = MPV) 10.3 fL 9.4-16.4 N TOTAL CELLS COUNTED (test code = TCC) #CELLS SEGMENTED NEUTROPHILS (test code = SEG) % 43-65 LYMPHOCYTE (test code = LYMPH) % 20.5-45.5 CBC W/MANUAL [id number] 05:57:00* Test Item Value Reference Range Interpretation Comments WHITE BLOOD CELL (test code = WBC) 15.0 x10 3/uL 5.0-12.0 H RED BLOOD CELL (test code = RBC) 2.42 x10 6/uL 4.20-5.40 L HEMOGLOBIN (test code = HGB) 7.5 g/dL 12.0-16.0 L HEMATOCRIT (test code = HCT) 24.1 % 36.0-46.0 L MEAN CELL VOLUME (test code = MCV) 100 fL 81-99 H MEAN CELL HGB (test code = MCH) 31.0 pg 27-31 N MEAN CELL HGB CONCENTRATION (test code = MCHC) 31.1 g/dL 33-37 L RED CELL DISTRIBUTION WIDTH (test code = RDW) 19.2 % 11.5-15. 5 H PLATELET COUNT (test code = PLT) 147 x10 3/uL 130-400 N MEAN PLATELET VOLUME (test code = MPV) 10.3 fL 9.4-16.4 N TOTAL CELLS COUNTED (test code = TCC) #CELLS SEGMENTED NEUTROPHILS (test code = SEG) % 43-65 LYMPHOCYTE (test code = LYMPH) % 20.5-45.5 - [place] ABDOMEN [id number] 20:09:00 FAX: Carlito Foley [phone] [place]: St: ADM FAX: Kofi Briones [phone] FAX: Marcie Kitchen [phone] Name: LEONOR VELIZ [facility] : 1950 Age/S: 68/F [id number] Unit #: [id number] Loc: [id number] [place] [address] Phys: Marcie Lentz RED CAP Acct: [id number] Dis Date: Status: ADM IN ONE #: [phone] Exam Date: 01/04/20191931 FAX #: [phone] Reason: distal incision site w/ redness and swelling r/ EXAMS: CPT CODE: [id number] US ABDOMEN LTD 12982 EXAM: - US AB DOMEN LTD INDICATION: 68 years -old Female with distal incision si te w/ redness and swelling r/o abscess COMPARISON: CT abdome n and pelvis 12/24/2018. TECHNIQUE: Focused sonogram of the midline abdomen at the surgical site. FINDINGS: No rupal inable fluid collection is identified. Mild edema does appear within the site. IMPRESSION: As above. Electronically S igned by Ignacio Nieves MD on 01/04/2019 at 2008 Reported and signed by: Ignacio Nieves MD CC: Carlito Cordero; Kofi Bean MD; Marcie Lentz NP Technologist: Neftaly Lott [facility] Trnscrd Date/Time/By: 01/04/2019 (2008) : By: [email or web address].[email or web address] PAGE 1 Signed Report FAX: Carlito Foley [phone] [place]: St: ADM FAX: Kofi Briones [phone] FAX: Marcie Kitchen [phone] Name: LEONOR VELIZ [facility] : 1950 Age/S: 68/F [address] Unit #: [id number] Loc: C.6609 [place] [address] Phys: Marcie Lentz NP Acct: [id number] Dis Date: Status: ADM IN PHONE #: [phone] Exam Date: 01/04/2019 193 FAX #: [phone] Reason: distal incision site w/ redness and swelling r/ EXAMS: CPT CODE: [id number] US ABDOMEN LTD 54406 <Continued> Orig Print D/T: S: 01/04/2019 (2011) PAGE 2 Signed Report BASIC METABOLIC [id number] 06:18:00* Test Item Value Reference Range Interpretation Comments SODIUM (test code = NA) 141 mmol/L 137-145 N POTASSIUM (test code = K) 3.6 mmol/L 3.4-5.0 N CHLORIDE (test code = CL) 112 mmol/L 98-107 H CARBON DIOXIDE (test code = CO2) 15 mmol/L 22-30 L GLUCOSE (test code = GLU) 83 mg/dL 74-106 N BLOOD UREA NITROGEN (test code = BUN) 26 mg/dL 7-17 H GLOMERULAR FILTRATION RATE (test code = GFR) 34 >60 L The estimated glomerular filtration rate is computed usingpatient race, age (>18), sex, and serum creatinine. If anyof the needed data elements are missing the Laboratory cannot compute an estimation of the glomerular filtration rate. CREATININE (test code = CREAT) 1.6 mg/dL 0.5-1.0 H CALCIUM (test code = CA) 8.6 mg/dL 8.4-10.2 N CBC W/AUTO [id number] 06:01:00* Test Item Value Reference Range Interpretation Comments WHITE BLOOD CELL (test code = WBC) 14.2 x10 3/uL 5.0-12.0 H RED BLOOD CELL (test code = RBC) 3.23 x10 6/uL 4.20-5.40 L HEMOGLOBIN (test code = HGB) 9.9 g/dL 12.0-16.0 L HEMATOCRIT (test code = HCT) 32.5 % 36.0-46.0 L MEAN CELL VOLUME (test code = MCV) 101 fL 81-99 H MEAN CELL HGB (test code = MCH) 30.7 pg 27-31 N MEAN CELL HGB CONCENTRATION (test code = MCHC) 30.5 g/dL 33-37 L RED CELL DISTRIBUTION WIDTH (test code = RDW) 19.3 % 11.5-15. 5 H PLATELET COUNT (test code = PLT) 205 x10 3/uL 130-400 N MEAN PLATELET VOLUME (test code = MPV) 10.4 fL 9.4-16.4 N NEUTROPHIL % (test code = NT%) 87.6 % 43-65 H IMMATURE GRANULOCYTE % (test code = IG%) 0.9 % 0.0-2.0 N LYMPHOCYTE % (test code = LY%) 6.6 % 20.5-45.5 L MONOCYTE % (test code = MO%) 4.5 % 5.5-11.7 L EOSINOPHIL % (test code = EO%) 0.1 % 0.9-2.9 L BASOPHIL % (test code = BA%) 0.3 % 0.2-1.0 N NUCLEATED RBC % (test code = NRBC%) 0.5 % 0-1.0 N NEUTROPHIL # (test code = NT#) 12.38 x10 3/uL 2.2-4.8 H IMMATURE GRANULOCYTE # (test code = IG#) 0.13 x10 3/uL 0-0.03 H LYMPHOCYTE # (test code = LY#) 0.94 x10 3/uL 1.3-2.9 L MONOCYTE # (test code = MO#) 0.64 x10 3/uL 0.3-0.8 N EOSINOPHIL # (test code = EO#) 0.02 x10 3/uL 0.0-0.2 N BASOPHIL # (test code = BA#) 0.04 x10 3/uL 0.0-0.1 N COMPREHENSIVE METABOLIC [id number] 01:22:00* Test Item Value Reference Range Interpretation Comments SODIUM (test code = NA) 141 mmol/L 137-145 N POTASSIUM (test code = K) 4.3 mmol/L 3.4-5.0 N CHLORIDE (test code = CL) 112 mmol/L 98-107 H CARBON DIOXIDE (test code = CO2) 16 mmol/L 22-30 L GLUCOSE (test code = GLU) 100 mg/dL 74-106 N BLOOD UREA NITROGEN (test code = BUN) 27 mg/dL 7-17 H GLOMERULAR FILTRATION RATE (test code = GFR) 30 >60 L The estimated glomerular filtration rate is computed usingpatient race, age (>18), sex, and serum creatinine. If anyof the needed data elements are missing the Laboratory cannot compute an estimation of the glomerular filtration rate. CREATININE (test code = CREAT) 1.8 mg/dL 0.5-1.0 H TOTAL PROTEIN (test code = PROT) 6.4 g/dL 6.3-8.2 N ALBUMIN (test code = ALB) 3.6 g/dL 3.5-5.0 N CALCIUM (test code = CA) 9.0 mg/dL 8.4-10.2 N BILIRUBIN TOTAL (test code = BILT) 0.3 mg/dL 0.2-1.3 N BILIRUBIN CONJUGATED (test code = BILCON) 0 mg/dL 0-0.3 N ~~~~~~~~~~~~~~~~~~~~~~~~~~~~~~~~~~~~~~~~~~~~~~~~~~~~~~~~~~~~CONJUGATED BILIRUBIN IS THE REPLACEMENT ASSAY FOR DIRECTBILIRUBIN.~~~~~~~~~~~~~~~~~~~~~~~~~~~~~~~~~~~~~~~~~~~~~~~~~~~~~~~~~~~~ BILIRUBIN UNCONJUGATED (test code = BILUNC) 0 mg/dL 0-1.1 N SGOT/AST (test code = AST) 28 U/L 15-46 N SGPT/ALT (test code = ALT) 22 U/L 13-69 N ALKALINE PHOSPHATASE (test code = ALKP) 171 U/L 38-126 H UA RFLX MICR CULT IF [id number] 00:49:00* Test Item Value Reference Range Interpretation Comments UA COLOR (test code = COLU) Straw Yellow UA APPEARANCE (test code = APPU) Clear Clear UA GLUCOSE DIPSTICK (test code = DGLUU) Negative Negative UA BILIRUBIN DIPSTICK (test code = BILU) Negative Negative UA KETONE DIPSTICK (test code = KETU) Negative mg/dL Negative UA SPECIFIC GRAVITY (test code = SGU) 1.010 <1.030 UA BLOOD DIPSTICK (test code = JULIANE) 1+ Negative A UA PH DIPSTICK (test code = DIGNA) 6.0 5.0-8.0 UA PROTEIN DIPSTICK (test code = PROU) 30 (1+) mg/dL Negative A UA UROBILINOGEN DIPSTICK (test code = URO) Negative mg/dL Negative UA NITRITE DIPSTICK (test code = CHILO) Negative Negative UA LEUKOCYTE ESTERASE DIPSTICK (test code = LEUU) NEGATIVE Nega tive UA WBC (test code = WBCUR) 0-3 /HPF <4-5 < 10 WBC/HPF = PYURIA ABSENT URINE CULTURE NOT INDICATED UA RBC (test code = RBCU) 0-3 /HPF <4-5 SOURCE OF URINE: CLEAN CATCHless than 18 yrs old, neutropenic, or urological humble malik? NOPrimary Indication for Culture: Temperature > 100.4F- CT CHEST W/O [id number] 00:43:00 FAX: Carlito Foley [phone] [place]: St: ADM FAX: Michael Kofi Bean [phone] FAX: Marcie Kitchen [phone] Name: LEONOR VELIZ [facility] : 1950 Age/S: 68/F [address] Unit: [id number] Loc: C.6609 [place] [address] Phys: Marcie Lentz RED CAP Acct: [id number] Dis Date: Status: ADM IN PHONE #: [phone] Exam Date: 01/03/2019 0015 FAX #: [phone] Reason: cough, febrile, leukocytosis EXAMS: CPT CODE: [id number] CT CHEST W/O CONTRAST 30288 HISTORY: Fem cristi, 68 years of age with cough, febrile, leukocytosis Location c ode: R16 EXAM: CT CHEST WITHOUT CONTRAST (ROUTINE). COMPARISON: Chest x-ray performed 9 hours prior; CT abdomen and pelvis per formed 12/24/2018 TECHNIQUE: 5.0 mm Helical axial images were obtain ed through the chest without IV contrast using the routine chest CT protoc ol. Coronal and sagittal reformats were performed. One or more of the foll owing dose reduction techniques were used: Automated exposure control; adj ustment of the mA and/or kV according to the patient size; and/or use of iterative reconstruction technique. FINDINGS: AORTA: C alcified plaque seen in the aorta. No focal aortic aneurysm. Dissection ca nnot be excluded without IV contrast. PULMONARY ARTERIES: Normal size. HEART: Coronary artery calcifications are noted. Heart size within n ormal limits. No significant pericardial effusion. LYMPH NODES: No enla rged lymph nodes by CT criteria. PLEURA: No pleural effusions. MEREDITH GS: Since CT abdomen 2 weeks ago the patient has developed patchy areas of alveolar interstitial opacity in both lower lobes (right greater than l eft) most consistent with pneumonia. There is an oval mildly lobulated 1.1 x 0.8 x 0.6 cm soft tissue density nodule in the lateral left upper lobe. No other discrete lung masses are seen. Right upper lobe and right middle lobe are clear. No significant emphysema. No tracheobronchial filling def ects. OTHER: Images through the upper abdomen are unremarkable. Old compression deformity again seen in one of the lower thoracic vertebrae. No acute osseous abnormalities. IMPRESSION: 1. New al veolar interstitial opacities in both lower lobes most likely representi ng pneumonia. 2. 1.1 x 0.8 x 0.6 cm soft tissue density nodule in the le ft upper lobe. The possibility of primary lung cancer or metastatic neop lasm should be considered. Short-term follow-up CT scan after treatment recommended. PAGE 1 Signed Report (CONTINUED) FAX: Carlito Foley [phone] [place]: St: ADM FAX: Kofi Briones [phone] FAX: Marcie Sanchez [phone] Name: LEONOR VELIZ [facility] [place]omas [place] : 1950 Age/S: 68/F [address] Unit: [id number] Loc: C.6[address] [place] [address] Phys: Marcie Lentz RED CAP Acct: [id number] Dis Date: Status: ADM IN PHONE #: [phone] Exam Date: 01/03/2019 0015 FAX #: [phone] Reason: cough, febrile, leukocytosis EXAMS: CPT CODE: [id number] CT CHEST W/O CONTRAST 08786 < Continued> at 0043 Reported and signed by: Karolyn Alicia MD CC: Carlito Cordero; Kofi Bean MD; Marcie Lentz NP Technologist: James Johnson; HELEN EHSS Trnnyrd Dt/Tm: 01/04/2019 (0043) [email or web address] Orig Print D/T: S: 01/04/2019 (0046 PAGE 2 Signed Report - CT CHEST W/O [id number] 00:43:00 FAX: Carlito Foley [phone] [place]: St: DIS FAX: Kofi Briones [phone] FAX: Marcie Kitchen [phone] Name: LEONOR VELIZ [facility] : 1950 Age/S: 68/F [address] Unit: [id number] Loc: C.ICU[address] [place] [address] Phys: Marcie Lentz RED CAP Acct: [id number] Dis Date: 01/05/2019 Status: DIS IN PHONE #: [phone] Exam Date: 01/03/2019 0015 FAX #: [phone] Reason: cough, febrile, leukocytosis EXAMS: CPT CODE: [id number] CT CHEST W/O CONTRAST 32020 HISTORY: Toy colin, 68 years of age with cough, febrile, leukocytosis Location c ode: R16 EXAM: CT CHEST WITHOUT CONTRAST (ROUTINE). COMPARISON: Chest x-ray performed 9 hours prior; CT abdomen and pelvis per formed 12/24/2018 TECHNIQUE: 5.0 mm Helical axial images were obtain ed through the chest without IV contrast using the routine chest CT protoc ol. Coronal and sagittal reformats were performed. One or more of the foll owing dose reduction techniques were used: Automated exposure control; adj ustment of the mA and/or kV according to the patient size; and/or use of iterative reconstruction technique. FINDINGS: AORTA: C alcified plaque seen in the aorta. No focal aortic aneurysm. Dissection ca nnot be excluded without IV contrast. PULMONARY ARTERIES: Normal size. HEART: Coronary artery calcifications are noted. Heart size within n ormal limits. No significant pericardial effusion. LYMPH NODES: No enla rged lymph nodes by CT criteria. PLEURA: No pleural effusions. MEREDITH GS: Since CT abdomen 2 weeks ago the patient has developed patchy areas of alveolar interstitial opacity in both lower lobes (right greater than l eft) most consistent with pneumonia. There is an oval mildly lobulated 1.1 x 0.8 x 0.6 cm soft tissue density nodule in the lateral left upper lobe. No other discrete lung masses are seen. Right upper lobe and right middle lobe are clear. No significant emphysema. No tracheobronchial filling def ects. OTHER: Images through the upper abdomen are unremarkable. Old compression deformity again seen in one of the lower thoracic vertebrae. No acute osseous abnormalities. IMPRESSION: 1. New al veolar interstitial opacities in both lower lobes most likely representi ng pneumonia. 2. 1.1 x 0.8 x 0.6 cm soft tissue density nodule in the le ft upper lobe. The possibility of primary lung cancer or metastatic neop lasm should be considered. Short-term follow-up CT scan after treatment recommended. PAGE 1 Signed Report (CONTINUED) FAX: Carlito Foley [phone] [place]: St: DIS FAX: Kofi Briones [phone] FAX: Marcie Sanchez [phone] Name: LEONOR VELIZ [facility] [place]omas [place] : 1950 Age/S: 68/F [address] Unit: [id number] Loc: [place] [address] Phys: Marcie Lentz NP Acct: [id number] Dis Date: 01/05/2019 Status: DIS IN PHONE #: [phone] Exam Date: 01/03/2019 0015 FAX #: [phone] Reason: cough, febrile, leukocytosis EXAMS: CPT CODE: [id number] CT CHEST W/O CONTRAST 74066 < Continued> at 0043 Reported and signed by: Karolyn Alicia MD CC: Carlito Cordero; Kofi Bean MD; Marcie Lentz NP Technologist: James Johnson; HELEN HESS Trnnyrd Dt/Tm: 01/04/2019 (0043) [email or web address] Orig Print D/T: S: 01/04/2019 (0046 PAGE 2 Signed Report LACTIC [id number] 23:14:00* Test Item Value Reference Range Interpretation Comments LACTIC ACID (test code = LACT) 2.0 mmol/L 0.7-2.0 N REPORTED TO [id number] 23:11:00* Test Item Value Reference Range Interpretation Comments CREATININE (test code = CREAT) 1.7 mg/dL 0.5-1.0 H BILIRUBIN [id number] 23:11:00* Test Item Value Reference Range Interpretation Comments BILIRUBIN TOTAL (test code = BILT) 0.2 mg/dL 0.2-1.3 N CBC W/AUTO [id number] 22:59:00* Test Item Value Reference Range Interpretation Comments WHITE BLOOD CELL (test code = WBC) 21.4 x10 3/uL 5.0-12.0 H RED BLOOD CELL (test code = RBC) 3.28 x10 6/uL 4.20-5.40 L HEMOGLOBIN (test code = HGB) 10.1 g/dL 12.0-16.0 L HEMATOCRIT (test code = HCT) 33.0 % 36.0-46.0 L MEAN CELL VOLUME (test code = MCV) 101 fL 81-99 H MEAN CELL HGB (test code = MCH) 30.8 pg 27-31 N MEAN CELL HGB CONCENTRATION (test code = MCHC) 30.6 g/dL 33-37 L RED CELL DISTRIBUTION WIDTH (test code = RDW) 18.7 % 11.5-15. 5 H PLATELET COUNT (test code = PLT) 231 x10 3/uL 130-400 N MEAN PLATELET VOLUME (test code = MPV) 9.9 fL 9.4-16.4 N NEUTROPHIL % (test code = NT%) 88.9 % 43-65 H IMMATURE GRANULOCYTE % (test code = IG%) 2.1 % 0.0-2.0 H LYMPHOCYTE % (test code = LY%) 2.9 % 20.5-45.5 L MONOCYTE % (test code = MO%) 5.7 % 5.5-11.7 N EOSINOPHIL % (test code = EO%) 0.1 % 0.9-2.9 L BASOPHIL % (test code = BA%) 0.3 % 0.2-1.0 N NUCLEATED RBC % (test code = NRBC%) 0.2 % 0-1.0 N NEUTROPHIL # (test code = NT#) 19.03 x10 3/uL 2.2-4.8 H IMMATURE GRANULOCYTE # (test code = IG#) 0.44 x10 3/uL 0-0.03 H LYMPHOCYTE # (test code = LY#) 0.63 x10 3/uL 1.3-2.9 L MONOCYTE # (test code = MO#) 1.21 x10 3/uL 0.3-0.8 H EOSINOPHIL # (test code = EO#) 0.03 x10 3/uL 0.0-0.2 N BASOPHIL # (test code = BA#) 0.07 x10 3/uL 0.0-0.1 N - XR CHEST 1 [id number] 15:36:00 FAX: Carlito Foley [phone] [place]: St: ADM FAX: Kofi Briones [phone] FAX: Marcie Kitchen [phone] Name: LEONOR VELIZ [facility] : 1950 Age/S: 68/F [address] Unit #: [id number] Loc: C.6[address] [place] [address] Phys: Marcie Lentz RED CAP Acct: [id number] Dis Date: Status: ADM IN ONE #: [phone] Exam Date: 01/03/2019 1455 FAX #: [phone] Reason: continuous cough EXAMS: CPT CODE: [id number] XR CHEST 1 V 94821 EXAM: CHEST ONE VIEW INDICATION: Cough COMPARISON: December 24, 2018 TECHNIQUE: AP view of the chest FINDINGS: The heart size is normal. The lungs are clear bilaterally. The pulmonary vas culature is normal. No pneumothorax or pleural effusion is identified. T he osseous structures are normal. IMPRESSION: No acute c ardiopulmonary process. [facility]: [facility] Signed by Barbi Guadarrama MD on 01/03/2019 at 1536 Repor gilbert and signed by: Barbi Guadarrama MD CC: Carlito jaramillo; Kofi Bean MD; Marcie Lentz NP Technologist: Alyce Huff [facility] Date/Time/By: 01/03/2019 (1536) : By: Cecy D16 PAGE 1 Signed Report FAX: Carlito Foley [phone] [place]: St: ADM FAX: Kofi Briones [phone] FAX: Paul Kitchen [phone] Name: LEONOR VELIZ [facility] [place] : 1950 Age/S: 68/F [address] Unit #: [id number] Loc: C.6[address] [place] [address] Phys: Marcie Lentz NP Acct: [id number] Dis Date: Status: ADM IN PHONE #: [phone] Exam Date: 01/03/2019 3887 FAX #: [phone] Reason: continuous cough EXAMS: CPT CODE: [id number] XR CHEST 1 V 46308 <Continued> Orig Print D/T: S: 01/03/2019 (7222) PAGE 2 Signed Report CBC W/MANUAL [id number] 06:58:00* Test Item Value Reference Range Interpretation Comments WHITE BLOOD CELL (test code = WBC) 7.7 x10 3/uL 5.0-12.0 N RED BLOOD CELL (test code = RBC) 2.94 x10 6/uL 4.20-5.40 L HEMOGLOBIN (test code = HGB) 8.8 g/dL 12.0-16.0 L HEMATOCRIT (test code = HCT) 29.0 % 36.0-46.0 L MEAN CELL VOLUME (test code = MCV) 99 fL 81-99 N MEAN CELL HGB (test code = MCH) 29.9 pg 27-31 N MEAN CELL HGB CONCENTRATION (test code = MCHC) 30.3 g/dL 33-37 L RED CELL DISTRIBUTION WIDTH (test code = RDW) 17.3 % 11.5-15. 5 H PLATELET COUNT (test code = PLT) 292 x10 3/uL 130-400 N MEAN PLATELET VOLUME (test code = MPV) 10.0 fL 9.4-16.4 N TOTAL CELLS COUNTED (test code = TCC) 100 #CELLS SEGMENTED NEUTROPHILS (test code = SEG) 80 % 43-65 H BAND NEUTROPHIL (test code = BAND) 4 % 0-1 H LYMPHOCYTE (test code = LYMPH) 6 % 20.5-45.5 L ATYPICAL LYMPH (test code = ALYMPH) 6 % 0-1 H MONOCYTE (test code = MON) 3 % 5.5-11.7 L BASOPHIL (test code = BASO) 1 % 0.2-1.0 N NUCLEATED RED BLOOD CELL (test code = NRBC) 1.5 /100WBC 0-0 H POLYCHROMASIA (test code = POLC) 1+ NONE SEEN A ANISOCYTOSIS (test code = ANISO) 1+ NONE SEEN A MICROCYTOSIS (test code = MICR) 1+ NONE SEEN A MACROCYTOSIS (test code = MACR) 1+ NONE SEEN A PLATELET ESTIMATE (test code = PLTEST) ADEQUATE ADEQUATE PLATELET MORPHOLOGY (test code = PLTMORPH) NORMAL NORMAL BASIC METABOLIC [id number] 06:44:00* Test Item Value Reference Range Interpretation Comments SODIUM (test code = NA) 144 mmol/L 137-145 N POTASSIUM (test code = K) 4.4 mmol/L 3.4-5.0 N CHLORIDE (test code = CL) 115 mmol/L 98-107 H CARBON DIOXIDE (test code = CO2) 20 mmol/L 22-30 L GLUCOSE (test code = GLU) 87 mg/dL 74-106 N BLOOD UREA NITROGEN (test code = BUN) 23 mg/dL 7-17 H GLOMERULAR FILTRATION RATE (test code = GFR) 40 >60 L The estimated glomerular filtration rate is computed usingpatient race, age (>18), sex, and serum creatinine. If anyof the needed data elements are missing the Laboratory cannot compute an estimation of the glomerular filtration rate. CREATININE (test code = CREAT) 1.4 mg/dL 0.5-1.0 H CALCIUM (test code = CA) 8.8 mg/dL 8.4-10.2 N CBC W/MANUAL [id number] 06:33:00* Test Item Value Reference Range Interpretation Comments WHITE BLOOD CELL (test code = WBC) 7.7 x10 3/uL 5.0-12.0 N RED BLOOD CELL (test code = RBC) 2.94 x10 6/uL 4.20-5.40 L HEMOGLOBIN (test code = HGB) 8.8 g/dL 12.0-16.0 L HEMATOCRIT (test code = HCT) 29.0 % 36.0-46.0 L MEAN CELL VOLUME (test code = MCV) 99 fL 81-99 N MEAN CELL HGB (test code = MCH) 29.9 pg 27-31 N MEAN CELL HGB CONCENTRATION (test code = MCHC) 30.3 g/dL 33-37 L RED CELL DISTRIBUTION WIDTH (test code = RDW) 17.3 % 11.5-15. 5 H PLATELET COUNT (test code = PLT) 292 x10 3/uL 130-400 N MEAN PLATELET VOLUME (test code = MPV) 10.0 fL 9.4-16.4 N TOTAL CELLS COUNTED (test code = TCC) #CELLS SEGMENTED NEUTROPHILS (test code = SEG) % 43-65 LYMPHOCYTE (test code = LYMPH) % 20.5-45.5 CBC W/MANUAL [id number] 06:33:00* Test Item Value Reference Range Interpretation Comments WHITE BLOOD CELL (test code = WBC) 7.7 x10 3/uL 5.0-12.0 N RED BLOOD CELL (test code = RBC) 2.94 x10 6/uL 4.20-5.40 L HEMOGLOBIN (test code = HGB) 8.8 g/dL 12.0-16.0 L HEMATOCRIT (test code = HCT) 29.0 % 36.0-46.0 L MEAN CELL VOLUME (test code = MCV) 99 fL 81-99 N MEAN CELL HGB (test code = MCH) 29.9 pg 27-31 N MEAN CELL HGB CONCENTRATION (test code = MCHC) 30.3 g/dL 33-37 L RED CELL DISTRIBUTION WIDTH (test code = RDW) 17.3 % 11.5-15. 5 H PLATELET COUNT (test code = PLT) 292 x10 3/uL 130-400 N MEAN PLATELET VOLUME (test code = MPV) 10.0 fL 9.4-16.4 N TOTAL CELLS COUNTED (test code = TCC) #CELLS SEGMENTED NEUTROPHILS (test code = SEG) % 43-65 LYMPHOCYTE (test code = LYMPH) % 20.5-45.5 HGB [id number] 04:41:00* Test Item Value Reference Range Interpretation Comments HEMOGLOBIN (test code = HGB) 8.1 g/dL 12.0-16.0 L HEMATOCRIT (test code = HCT) 26.3 % 36.0-46.0 L HGB [id number] 06:18:00* Test Item Value Reference Range Interpretation Comments HEMOGLOBIN (test code = HGB) 8.1 g/dL 12.0-16.0 L HEMATOCRIT (test code = HCT) 26.5 % 36.0-46.0 L [id number] 13:01:00* Test Item Value Reference Range Interpretation Comments GLOBULIN (test code = GLOB) 2.7 g/dL 2.2-3.9 ALBUMIN/GLOBULIN RATIO (test code = A/G) 1.0 0.7-1.7 TOTAL PROTEIN (test code = PROTE) 5.3 g/dL 6.0-8.5 L ALBUMIN (test code = ALBE) 2.6 g/dL 2.9-4.4 L [id number] (test code = A1G) 0.4 g/dL 0.0-0.4 UPRIW-4-FUYCYNTX (test code = A2G) 1.1 g/dL 0.4-1.0 A BETA GLOBULIN (test code = BG) 1.0 g/dL 0.7-1.3 GAMMA GLOBULIN (test code = GG) 0.2 g/dL 0.4-1.8 A M-SPIKE,SERUM (test code = MSPIKES) NOT OBSERVED PROT.ELECTROPH.INTERPRETATION (test code = ELEINT) Protein electrophoresis scan will follow via computer,mail, or animal nutrition consultant delivery.Performed At: [facility] [address] [id number] Gene Vicente MD Ph:[phone] At: DA [facility] [id number] [facility] [address] [place], [place] [id number] CN MD Ph:[phone] IMMUNOGLOBULIN A (test code = IMTIAZ) 24 mg/dL 87-352 A Result confirmed on concentration. IMMUNOGLOBULIN G (test code = IMMG) 87 mg/dL 700-1600 A Result confirmed on concentration. IMMUNOGLOBULIN M (test code = IMMM) 11 mg/dL 26-217 A Result confirmed on concentration. IEP INTERPRETATION (test code = IEPINT) All immunoglobulins appear decreased. Pattern suggestive ofhypogammaglobulinemia. VITAMIN [id number] 13:01:00* Test Item Value Reference Range Interpretation Comments VITAMIN B12 (test code = VITB12) 980 pg/mL 239-931 H FOLIC [id number] 13:01:00* Test Item Value Reference Range Interpretation Comments FOLIC ACID (test code = FOL) > 20.0 ng/mL REFERENCE RANGE:2.76 - >20 ng/mL A positive bias may occur on patients taking BIOTINsupplements. [id number] 13:01:00* Test Item Value Reference Range Interpretation Comments FERRITIN (test code = ERWIN) 359 ng/mL 11.1-264 H HGB [id number] 06:24:00* Test Item Value Reference Range Interpretation Comments HEMOGLOBIN (test code = HGB) 9.6 g/dL 12.0-16.0 L HEMATOCRIT (test code = HCT) 30.6 % 36.0-46.0 L [id number] 21:34:00* Test Item Value Reference Range Interpretation Comments GLOBULIN (test code = GLOB) 2.7 g/dL 2.2-3.9 ALBUMIN/GLOBULIN RATIO (test code = A/G) 1.0 0.7-1.7 TOTAL PROTEIN (test code = PROTE) 5.3 g/dL 6.0-8.5 L ALBUMIN (test code = ALBE) 2.6 g/dL 2.9-4.4 L [id number] (test code = A1G) 0.4 g/dL 0.0-0.4 [id number]-7-[id number] (test code = A2G) 1.1 g/dL 0.4-1.0 A BETA GLOBULIN (test code = BG) 1.0 g/dL 0.7-1.3 GAMMA GLOBULIN (test code = GG) 0.2 g/dL 0.4-1.8 A M-SPIKE,SERUM (test code = MSPIKES) PROT.ELECTROPH.INTERPRETATION (test code = ELEINT) Protein electrophoresis scan will follow via computer,mail, or animal nutrition consultant delivery.Performed At: [facility] [address] [id number] Gene Vicente MD Ph:[phone] At: [facility] [address] [place], [place] [id number] CN MD Ph:[phone] IMMUNOGLOBULIN A (test code = IMTIAZ) 24 mg/dL 87-352 A Result confirmed on concentration. IMMUNOGLOBULIN G (test code = IMMG) 87 mg/dL 700-1600 A Result confirmed on concentration. IMMUNOGLOBULIN M (test code = IMMM) 11 mg/dL 26-217 A Result confirmed on concentration. IEP INTERPRETATION (test code = IEPINT) All immunoglobulins appear decreased. Pattern suggestive ofhypogammaglobulinemia. VITAMIN [id number] 21:34:00* Test Item Value Reference Range Interpretation Comments VITAMIN B12 (test code = VITB12) 980 pg/mL 239-931 H FOLIC [id number] 21:34:00* Test Item Value Reference Range Interpretation Comments FOLIC ACID (test code = FOL) > 20.0 ng/mL REFERENCE RANGE:2.76 - >20 ng/mL A positive bias may occur on patients taking BIOTINsupplements. [id number] 21:34:00* Test Item Value Reference Range Interpretation Comments FERRITIN (test code = ERWIN) 359 ng/mL 11.1-264 H CBC W/MANUAL [id number] 06:31:00* Test Item Value Reference Range Interpretation Comments WHITE BLOOD CELL (test code = WBC) 8.8 x10 3/uL 5.0-12.0 N RED BLOOD CELL (test code = RBC) 3.20 x10 6/uL 4.20-5.40 L HEMOGLOBIN (test code = HGB) 9.6 g/dL 12.0-16.0 L HEMATOCRIT (test code = HCT) 31.0 % 36.0-46.0 L MEAN CELL VOLUME (test code = MCV) 97 fL 81-99 N MEAN CELL HGB (test code = MCH) 30.0 pg 27-31 N MEAN CELL HGB CONCENTRATION (test code = MCHC) 31.0 g/dL 33-37 L RED CELL DISTRIBUTION WIDTH (test code = RDW) 18.5 % 11.5-15. 5 H PLATELET COUNT (test code = PLT) 292 x10 3/uL 130-400 N MEAN PLATELET VOLUME (test code = MPV) 11.1 fL 9.4-16.4 N TOTAL CELLS COUNTED (test code = TCC) 100 #CELLS SEGMENTED NEUTROPHILS (test code = SEG) 77 % 43-65 H LYMPHOCYTE (test code = LYMPH) 11 % 20.5-45.5 L ATYPICAL LYMPH (test code = ALYMPH) 2 % 0-1 H MONOCYTE (test code = MON) 7 % 5.5-11.7 N EOSINOPHIL (test code = EOS) 1 % 0.9-2.9 N BASOPHIL (test code = BASO) 1 % 0.2-1.0 N MYELOCYTE (test code = MYELO) 1 % 0-0 H NUCLEATED RED BLOOD CELL (test code = NRBC) 3.1 /100WBC 0-0 H PLASMA CELL (test code = ANNETTE) 1 % <1 POLYCHROMASIA (test code = POLC) 1+ NONE SEEN A ANISOCYTOSIS (test code = ANISO) 1+ NONE SEEN A MICROCYTOSIS (test code = MICR) 1+ NONE SEEN A PLATELET ESTIMATE (test code = PLTEST) ADEQUATE ADEQUATE PLATELET MORPHOLOGY (test code = PLTMORPH) LARGE PLATELETS SEEN NOR MAL BASIC METABOLIC [id number] 06:21:00* Test Item Value Reference Range Interpretation Comments SODIUM (test code = NA) 139 mmol/L 137-145 N POTASSIUM (test code = K) 4.4 mmol/L 3.4-5.0 N CHLORIDE (test code = CL) 103 mmol/L 98-107 N CARBON DIOXIDE (test code = CO2) 25 mmol/L 22-30 N GLUCOSE (test code = GLU) 80 mg/dL 74-106 N BLOOD UREA NITROGEN (test code = BUN) 37 mg/dL 7-17 H GLOMERULAR FILTRATION RATE (test code = GFR) 40 >60 L The estimated glomerular filtration rate is computed usingpatient race, age (>18), sex, and serum creatinine. If anyof the needed data elements are missing the Laboratory cannot compute an estimation of the glomerular filtration rate. CREATININE (test code = CREAT) 1.4 mg/dL 0.5-1.0 H CALCIUM (test code = CA) 8.9 mg/dL 8.4-10.2 N CBC W/MANUAL [id number] 06:15:00* Test Item Value Reference Range Interpretation Comments WHITE BLOOD CELL (test code = WBC) 8.8 x10 3/uL 5.0-12.0 N RED BLOOD CELL (test code = RBC) 3.20 x10 6/uL 4.20-5.40 L HEMOGLOBIN (test code = HGB) 9.6 g/dL 12.0-16.0 L HEMATOCRIT (test code = HCT) 31.0 % 36.0-46.0 L MEAN CELL VOLUME (test code = MCV) 97 fL 81-99 N MEAN CELL HGB (test code = MCH) 30.0 pg 27-31 N MEAN CELL HGB CONCENTRATION (test code = MCHC) 31.0 g/dL 33-37 L RED CELL DISTRIBUTION WIDTH (test code = RDW) 18.5 % 11.5-15. 5 H PLATELET COUNT (test code = PLT) 292 x10 3/uL 130-400 N MEAN PLATELET VOLUME (test code = MPV) 11.1 fL 9.4-16.4 N TOTAL CELLS COUNTED (test code = TCC) #CELLS SEGMENTED NEUTROPHILS (test code = SEG) % 43-65 LYMPHOCYTE (test code = LYMPH) % 20.5-45.5 CBC W/MANUAL [id number] 06:15:00* Test Item Value Reference Range Interpretation Comments WHITE BLOOD CELL (test code = WBC) 8.8 x10 3/uL 5.0-12.0 N RED BLOOD CELL (test code = RBC) 3.20 x10 6/uL 4.20-5.40 L HEMOGLOBIN (test code = HGB) 9.6 g/dL 12.0-16.0 L HEMATOCRIT (test code = HCT) 31.0 % 36.0-46.0 L MEAN CELL VOLUME (test code = MCV) 97 fL 81-99 N MEAN CELL HGB (test code = MCH) 30.0 pg 27-31 N MEAN CELL HGB CONCENTRATION (test code = MCHC) 31.0 g/dL 33-37 L RED CELL DISTRIBUTION WIDTH (test code = RDW) 18.5 % 11.5-15. 5 H PLATELET COUNT (test code = PLT) 292 x10 3/uL 130-400 N MEAN PLATELET VOLUME (test code = MPV) 11.1 fL 9.4-16.4 N TOTAL CELLS COUNTED (test code = TCC) #CELLS SEGMENTED NEUTROPHILS (test code = SEG) % 43-65 LYMPHOCYTE (test code = LYMPH) % 20.5-45.5 [id number] 05:36:00* Test Item Value Reference Range Interpretation Comments GLUBED (test code = GLUBED) 81 MG/DL 74-106 N [id number] 20:59:00* Test Item Value Reference Range Interpretation Comments GLUBED (test code = GLUBED) 112 MG/DL 74-106 H - XR CHEST 1 [id number] 17:15:00 FAX: Carlito Foley [phone] [place]: St: ADM FAX: Michael JohnsonKofi pulliamleana [phone] FAX: Patricia Cadet [phone] Name: LEONOR VELIZ [facility] : 1950 Age/S: 68/F [address] Unit #: [id number] Loc: [address] [place] [address] Phys: Patricia Bell RED CAP Acct: [id number] Dis Date: Status: ADM IN ONE #: [phone] Exam Date: 12/24/2018 1636 FAX #: [phone] Reason: cough, r/o infection EXAMS: CPT CODE: [id number] XR CHEST 1 V 30443 EXAM: Portable chest x-ray, one view INDICATION: cough, r/o infection LOCATION CODE: C3 COMPARISON: 12/17/2018 TECHNIQUE: Single Portable AP upright view of the chest DISCUS NERIS: Previously noted right IJ central line have been removed. The lungs are clear. Heart is within normal limits. No pneumothorax or pleural effusion. Osseous structures are within normal limits. Degenerative changes of the shoulder bilaterally compatible with rotator cuff arthropathy. Metall ic plates and screw fixating the mid cervical spine. IMPRESSION: 1. Degenerative changes of shoulder, bilaterally. 2. No infiltrative process Electronically Signed by Bita Pfeiffer on 0 12/24/2018 at 1715 Reported and signed by: Baljinder Pfeiffer M.D. CC: Carlito Cordero; Kofi Bean MD; Patricia Bell NP Technologist: JOSUE PEREZ Date/Time/By: 11/2018 (5597) : By: Vinny PAGE 1 Signed R eport FAX: Carlito Foley [place]: St: ADM FAX: Kofi Briones [phone] FA X: Patricia Cadet [phone] Name: LEONOR VELIZ [facility] : 1950 Age/S: 68/F [address] Unit #: [id number] Loc: C.[address] [place] [address] Phys: Patricia Bell RED CAP Acct: [id number] Dis Date: Status: ADM IN PHONE #: [phone] Exam Date: 11/2018 1636 FAX #: [phone] Reason: cough, r/o inf ection EXAMS: CPT CODE: [id number] XR CHEST 1 V 71 045 <Continued> Orig Print D/T: S: 12/24/2018 (5395) PAGE 2 Signed Report - CT ABD PELVIS W/O [id number] 17:05:00 FAX: Alxeus Freire MD [phone] [place]: St: ADM FAX: Carlito Foley [phone] FAX: Kofi Briones [phone] Name: LEONOR VELIZ [facility] [place] : 1950 Age/S: 68/F [address] Unit: [id number] Loc: C.[address] [place] [address] Phys: Alexus Elliott MD Acct: [id number] Dis Date: Status: ADM IN PHONE #: [phone] Exam Date: 12/24/2018 1555 FAX #: [phone] Reason: BLOOD LOSS ANEMIA/RETROPERITONEAL BLEEDING EXAMS: CPT CODE: [id number] CT ABD PELVIS W/O CONT 73814 EXAM: CT pelvis without contrast HISTORY: 68 years -old Female with BLOOD LOSS A NEMIA/RETROPERITONEAL BLEEDING LOCATION CODE: C3 TECHNIQUE: Contrast - No IV contrast was given . Noncontrast phase - abdomen and pelvis Reconstructions - coronal and sagittal planes One or more of the following dose reduction techniques were used: Au tomated exposure control, adjustment of the mA and/or kV according to beverly ent size, and/or utilization of iterative reconstruction technique. Total Exam DLP : 325 mGy/cm CTDI vol: 6.32 mGy COMPARISON: 12/15/2018 FINDINGS: Statements: Lack of int ravenous contrast compromises evaluation of solid organs and vasculature. Thoracic: Previous study demonstrate mild to moderate bilateral pleural effusion with adjacent compressive atelectasis and or infiltr ate has demonstrate virtually complete resolution. Heart is of normal siz e. No pericardial effusion. Hepatobiliary: The liver is unremark able without focal lesion. The gallbladder surgically absent. Pancreas: No abnormality identified in the pancreas. Spleen: No abnormality identified in the spleen. Adrenals: No abnormality id entified in either adrenal gland. Genitourinary: Right kidney : P osterior cortex of the right kidney demonstrate presence of a 2.6 cm cyst reside at mid to lower pole. No PAGE 1 Signed Report (CONTINUED) FAX: Alexus Freire MD [phone] [place]: St: ADM FAX: Carlito Foley [phone] FAX: Kofi Briones [phone] Name: LEONOR VELIZ [facility] : 1950 Age/S: 68/F [address] Unit: [id number] Loc: C.[address] [place] [address] Phys: Alexus Elliott MD Acct: [id number] Dis Date: Status: ADM IN PHONE #: [phone] Exam Date: 12/24/2018 1555 FAX #: [phone] Reason: BLOOD LOSS ANEMIA/RE TROPERITONEAL BLEEDING EXAMS: CPT CODE: [id number] CT ABD PELVIS W/O CONT 13194 <Continued> hydronephrosis. no nephrolithiasis Left kidney: The kidneys are normal. No hydronephrosis no nephrolithiasis . Evaluation of the bladder is limited, but no obvious bladder abnormality is present. Organs of Reproduction: Not well assessed due to the lack of IV contrast, though no gross abnormalities are identified. Gastrointestinal: Small bowel is unremarkable. Large bowel reveal mild fecal retention within the ascending colon. There is presence of a right lower quadrant colostomy mild fatty stranding surrounding the colostomy is seen suggest edema and/or cellulitis. No abscess seen. The appendix is normal. Vascular: Abdominal aorta reveal severe atherosclerotic calcification at the origin of the celiac artery and superior mesenteric artery as well as the renal arteries. Stenosis cannot be excluded. There is presence of IVC filter in the infrarenal position. Lymph nodes: No enlarged lymph nodes by CT size criteria. Bones/Soft Tissues: Thoracolumbar spine reveal presence of status post posterior fusion involving L3-L4. Multilevel degenerative disc disease of the adjacent levels are seen. There is mild compression fracture involving T9. It appears to be chronic. No ventral hernias. Peritoneum/Other: No extraluminal air. No extraluminal fluid. Skin laura overlying the midline abdominal incision. Adjacent fatty stranding suggest postoperative changes. No a bscess is seen. No fluid collection. No evidence of retrope ritoneal hematoma. IMPRESSION: 1. No evidence of retroperitoneal hemorrhage. 2. Status post laparotomy with colosto my placement. 3. Status post cholecystectomy. PAGE 2 Signed Report (CONTINUED) FAX: Alexus Freire MD [phone] [place]: St: ADM FAX: Carlito Foley FAX: Kofi Briones [phone] Name: Isabel VELIZ [facility] : 1950 e/S: 68/F [address] Unit: [id number] Loc: C.[address] [place] [address] Phys: Alexus Elliott MD Acct: [id number] Dis Date: Status: ADM IN PHONE #: [phone] Exam Date: 12/24/2018 1555 FAX #: [phone] Reason : BLOOD LOSS ANEMIA/RETROPERITONEAL BLEEDING EXAMS: CPT CODE: [id number] CT ABD PELVIS W/O CONT 22807 <Continued> 4. Status post IVC filter placement. 5. Status post posterior spine fusion of the mid-lumbar spine. 6. Chronic T9 compression fx RECOMMENDATIONS: None. Internal Coding only:B3 at 3280 Reported and signed by: Baljinder Pfeiffer M.D. CC: Alexus Elliott MD; Carlito Cordero; Kofi Bean MD Technologist: Mirella Campos Trnscrd Dt/Tm: 12/24/2018 (6403) Vinny Orig Print D/T: S: 12/24/2018 (1708 PAGE 3 Signed Report COMPREHENSIVE METABOLIC [id number] 05:57:00* Test Item Value Reference Range Interpretation Comments SODIUM (test code = NA) 139 mmol/L 137-145 N POTASSIUM (test code = K) 4.3 mmol/L 3.4-5.0 N CHLORIDE (test code = CL) 100 mmol/L 98-107 N CARBON DIOXIDE (test code = CO2) 27 mmol/L 22-30 N GLUCOSE (test code = GLU) 97 mg/dL 74-106 N BLOOD UREA NITROGEN (test code = BUN) 47 mg/dL 7-17 H GLOMERULAR FILTRATION RATE (test code = GFR) 37 >60 L The estimated glomerular filtration rate is computed usingpatient race, age (>18), sex, and serum creatinine. If anyof the needed data elements are missing the Laboratory cannot compute an estimation of the glomerular filtration rate. CREATININE (test code = CREAT) 1.5 mg/dL 0.5-1.0 H TOTAL PROTEIN (test code = PROT) 5.8 g/dL 6.3-8.2 L ALBUMIN (test code = ALB) 3.2 g/dL 3.5-5.0 L CALCIUM (test code = CA) 9.3 mg/dL 8.4-10.2 N BILIRUBIN TOTAL (test code = BILT) 0.3 mg/dL 0.2-1.3 N BILIRUBIN CONJUGATED (test code = BILCON) 0 mg/dL 0-0.3 N ~~~~~~~~~~~~~~~~~~~~~~~~~~~~~~~~~~~~~~~~~~~~~~~~~~~~~~~~~~~~CONJUGATED BILIRUBIN IS THE REPLACEMENT ASSAY FOR DIRECTBILIRUBIN.~~~~~~~~~~~~~~~~~~~~~~~~~~~~~~~~~~~~~~~~~~~~~~~~~~~~~~~~~~~~ BILIRUBIN UNCONJUGATED (test code = BILUNC) 0 mg/dL 0-1.1 N SGOT/AST (test code = AST) 65 U/L 15-46 H SGPT/ALT (test code = ALT) 42 U/L 13-69 N ALKALINE PHOSPHATASE (test code = ALKP) 205 U/L 38-126 H [id number] 05:57:00* Test Item Value Reference Range Interpretation Comments PREALBUMIN (test code = PREALB) 32.29 mg/dL 17.6-36.0 N COMPREHENSIVE METABOLIC [id number] 05:49:00* Test Item Value Reference Range Interpretation Comments SODIUM (test code = NA) 139 mmol/L 137-145 N POTASSIUM (test code = K) 4.3 mmol/L 3.4-5.0 N CHLORIDE (test code = CL) 100 mmol/L 98-107 N CARBON DIOXIDE (test code = CO2) 27 mmol/L 22-30 N GLUCOSE (test code = GLU) 97 mg/dL 74-106 N BLOOD UREA NITROGEN (test code = BUN) 47 mg/dL 7-17 H GLOMERULAR FILTRATION RATE (test code = GFR) 37 >60 L The estimated glomerular filtration rate is computed usingpatient race, age (>18), sex, and serum creatinine. If anyof the needed data elements are missing the Laboratory cannot compute an estimation of the glomerular filtration rate. CREATININE (test code = CREAT) 1.5 mg/dL 0.5-1.0 H TOTAL PROTEIN (test code = PROT) 5.8 g/dL 6.3-8.2 L ALBUMIN (test code = ALB) 3.2 g/dL 3.5-5.0 L CALCIUM (test code = CA) 9.3 mg/dL 8.4-10.2 N BILIRUBIN TOTAL (test code = BILT) 0.3 mg/dL 0.2-1.3 N BILIRUBIN CONJUGATED (test code = BILCON) 0 mg/dL 0-0.3 N ~~~~~~~~~~~~~~~~~~~~~~~~~~~~~~~~~~~~~~~~~~~~~~~~~~~~~~~~~~~~CONJUGATED BILIRUBIN IS THE REPLACEMENT ASSAY FOR DIRECTBILIRUBIN.~~~~~~~~~~~~~~~~~~~~~~~~~~~~~~~~~~~~~~~~~~~~~~~~~~~~~~~~~~~~ BILIRUBIN UNCONJUGATED (test code = BILUNC) 0 mg/dL 0-1.1 N SGOT/AST (test code = AST) 65 U/L 15-46 H SGPT/ALT (test code = ALT) 42 U/L 13-69 N ALKALINE PHOSPHATASE (test code = ALKP) 205 U/L 38-126 H [id number] 05:49:00* Test Item Value Reference Range Interpretation Comments PREALBUMIN (test code = PREALB) mg/dL 17.6-36.0 PROTHROMBIN [id number] 05:43:00* Test Item Value Reference Range Interpretation Comments PROTHROMBIN TIME PATIENT (test code = PTP) 13.4 SECONDS 9.2-12.1 H INTERNATIONAL NORMAL RATIO (test code = INR) 1.2 The INR is to be used only for monitoring ORAL ANTICOAGULANTTHERAPY. Indication INR Value1. Prophylaxis/treatment of: Venous Thrombosis, Pulmonary Embolism 2.0 - 3.02. Prevention of systemic embolism from: Tissue heart valves 2.0 - 3.0 Acute myocardial infarction (to present systemic embolism)* 2.0 - 3.0 Valvular heart disease 2.0 - 3.0 Atrial fibrillation 2.0 - 3.03. Mechanical prosthetic valves (high risk) 2.5 - 3.5 * If oral anticoagulant therapy is elected to preventrecurrent myocardial infarction, an INR of 2.5-3.5 isrecommended, consistent with Food and Drug Administrationrecommendations. THROMBOPLASTIN TIME [id number] 05:43:00* Test Item Value Reference Range Interpretation Comments THROMBOPLASTIN TIME PARTIAL (test code = PTT) 26.4 SECONDS 23.4-37. 0 N Therapeutic Range for Heparin EFFECTIVE 04/01/13 Heparin IU/mL aPTT Seconds0.3 64.30.7 88.8 URINALYSIS [id number] 05:40:00* Test Item Value Reference Range Interpretation Comments UA COLOR (test code = COLU) Straw Yellow UA APPEARANCE (test code = APPU) Clear Clear UA GLUCOSE DIPSTICK (test code = DGLUU) Negative Negative UA BILIRUBIN DIPSTICK (test code = BILU) Negative Negative UA KETONE DIPSTICK (test code = KETU) Negative mg/dL Negative UA SPECIFIC GRAVITY (test code = SGU) 1.008 <1.030 UA BLOOD DIPSTICK (test code = JULIANE) 3+ Negative A UA PH DIPSTICK (test code = DIGNA) 8.0 5.0-8.0 UA PROTEIN DIPSTICK (test code = PROU) NEGATIVE mg/dL Negative UA UROBILINOGEN DIPSTICK (test code = URO) Negative mg/dL Negative UA NITRITE DIPSTICK (test code = CHILO) Negative Negative UA LEUKOCYTE ESTERASE DIPSTICK (test code = LEUU) TRACE Nega tive A UA WBC (test code = WBCU) 6-10 /HPF <4-5 A UA RBC (test code = RBCU) 11-20 /HPF <4-5 A UA SQUAMOUS CELLS (test code = SQU) 0-5 (RARE) /HPF 0-5 (RARE) CBC W/AUTO [id number] 05:38:00* Test Item Value Reference Range Interpretation Comments WHITE BLOOD CELL (test code = WBC) 9.1 x10 3/uL 5.0-12.0 N RED BLOOD CELL (test code = RBC) 2.17 x10 6/uL 4.20-5.40 L HEMOGLOBIN (test code = HGB) 6.8 g/dL 12.0-16.0 L HEMATOCRIT (test code = HCT) 21.8 % 36.0-46.0 L MEAN CELL VOLUME (test code = MCV) 101 fL 81-99 H MEAN CELL HGB (test code = MCH) 31.3 pg 27-31 H MEAN CELL HGB CONCENTRATION (test code = MCHC) 31.2 g/dL 33-37 L RED CELL DISTRIBUTION WIDTH (test code = RDW) 16.8 % 11.5-15. 5 H PLATELET COUNT (test code = PLT) 290 x10 3/uL 130-400 N MEAN PLATELET VOLUME (test code = MPV) 11.6 fL 9.4-16.4 N NEUTROPHIL % (test code = NT%) 79.3 % 43-65 H IMMATURE GRANULOCYTE % (test code = IG%) 4.3 % 0.0-2.0 H LYMPHOCYTE % (test code = LY%) 6.7 % 20.5-45.5 L MONOCYTE % (test code = MO%) 8.1 % 5.5-11.7 N EOSINOPHIL % (test code = EO%) 1.4 % 0.9-2.9 N BASOPHIL % (test code = BA%) 0.2 % 0.2-1.0 N NUCLEATED RBC % (test code = NRBC%) 1.0 % 0-1.0 N NEUTROPHIL # (test code = NT#) 7.24 x10 3/uL 2.2-4.8 H IMMATURE GRANULOCYTE # (test code = IG#) 0.39 x10 3/uL 0-0.03 H LYMPHOCYTE # (test code = LY#) 0.61 x10 3/uL 1.3-2.9 L MONOCYTE # (test code = MO#) 0.74 x10 3/uL 0.3-0.8 N EOSINOPHIL # (test code = EO#) 0.13 x10 3/uL 0.0-0.2 N BASOPHIL # (test code = BA#) 0.02 x10 3/uL 0.0-0.1 N URINALYSIS [id number] 05:35:00* Test Item Value Reference Range Interpretation Comments UA COLOR (test code = COLU) YELLOW UA APPEARANCE (test code = APPU) CLEAR UA GLUCOSE DIPSTICK (test code = DGLUU) MG/DL NEGATIVE UA BILIRUBIN DIPSTICK (test code = BILU) NEGATIVE UA KETONE DIPSTICK (test code = KETU) MG/DL NEGATIVE UA SPECIFIC GRAVITY (test code = SGU) 1.000-1.030 UA BLOOD DIPSTICK (test code = JULIANE) NEGATIVE UA PH DIPSTICK (test code = DIGNA) 4.5-8.5 UA PROTEIN DIPSTICK (test code = PROU) MG/DL NEGATIVE UA UROBILINOGEN DIPSTICK (test code = URO) EU/dL <=1.0 UA NITRITE DIPSTICK (test code = CHILO) NEGATIVE UA LEUKOCYTE ESTERASE DIPSTICK (test code = LEUU) NEGA TIVE UA WBC (test code = WBCU) 6-10 /HPF <4-5 A UA RBC (test code = RBCU) 11-20 /HPF <4-5 A UA SQUAMOUS CELLS (test code = SQU) 0-5 (RARE) /HPF 0-5 (RARE) [id number] 20:13:00* Test Item Value Reference Range Interpretation Comments GLUBED (test code = GLUBED) 124 MG/DL 74-106 H PROTEIN ELECTROPHORESIS [id number] 06:09:00* Test Item Value Reference Range Interpretation Comments TOTAL PROTEIN (test code = PROTE) gm/dl 6.0-8.5 ALBUMIN (test code = ALBE) g/dl 3.2-5.6 [id number]-0-[id number] (test code = A1G) g/dL [id number]-[id number] (test code = A2G) g/dL BETA GLOBULIN (test code = BG) g/dL GAMMA GLOBULIN (test code = GG) g/dL M-SPIKE,SERUM (test code = MSPIKES) GLOBULIN ELECT (test code = GLOBE) ALBUMIN/GLOBULIN RATIO (test code = AGE) PROT.ELECTROPH.INTERPRETATION (test code = ELEINT) [id number] 06:09:00* Test Item Value Reference Range Interpretation Comments GLOBULIN (test code = GLOB) g/dL ALBUMIN/GLOBULIN RATIO (test code = A/G) IMMUNOGLOBULIN A (test code = IMTIAZ) mg/dL IMMUNOGLOBULIN G (test code = IMMG) mg/dL IMMUNOGLOBULIN M (test code = IMMM) mg/dL IEP INTERPRETATION (test code = IEPINT) VITAMIN [id number] 06:09:00* Test Item Value Reference Range Interpretation Comments VITAMIN B12 (test code = VITB12) 980 pg/mL 239-931 H FOLIC [id number] 06:09:00* Test Item Value Reference Range Interpretation Comments FOLIC ACID (test code = FOL) > 20.0 ng/mL REFERENCE RANGE:2.76 - >20 ng/mL A positive bias may occur on patients taking BIOTINsupplements. [id number] 06:09:00* Test Item Value Reference Range Interpretation Comments FERRITIN (test code = ERWIN) 359 ng/mL 11.1-264 H PROTEIN ELECTROPHORESIS [id number] 05:37:00* Test Item Value Reference Range Interpretation Comments TOTAL PROTEIN (test code = PROTE) gm/dl 6.0-8.5 ALBUMIN (test code = ALBE) g/dl 3.2-5.6 [id number] (test code = A1G) g/dL HYWTZ-5-AOTDVNAW (test code = A2G) g/dL BETA GLOBULIN (test code = BG) g/dL GAMMA GLOBULIN (test code = GG) g/dL M-SPIKE,SERUM (test code = MSPIKES) GLOBULIN ELECT (test code = GLOBE) ALBUMIN/GLOBULIN RATIO (test code = AGE) PROT.ELECTROPH.INTERPRETATION (test code = ELEINT) [id number] 05:37:00* Test Item Value Reference Range Interpretation Comments GLOBULIN (test code = GLOB) g/dL ALBUMIN/GLOBULIN RATIO (test code = A/G) IMMUNOGLOBULIN A (test code = IMTIAZ) mg/dL IMMUNOGLOBULIN G (test code = IMMG) mg/dL IMMUNOGLOBULIN M (test code = IMMM) mg/dL IEP INTERPRETATION (test code = IEPINT) VITAMIN [id number] 05:37:00* Test Item Value Reference Range Interpretation Comments VITAMIN B12 (test code = VITB12) pg/mL 239-931 FOLIC [id number] 05:37:00* Test Item Value Reference Range Interpretation Comments FOLIC ACID (test code = FOL) ng/mL [id number] 05:37:00* Test Item Value Reference Range Interpretation Comments FERRITIN (test code = ERWIN) 359 ng/mL 11.1-264 H FE W/TOTAL IRON BINDING CAP.2018-12-23 05:18:00* Test Item Value Reference Range Interpretation Comments IRON (test code = IRON) 36 ug/dL 37-170 L TOTAL IRON BINDING CAPACITY (test code = TIBC) 291 ug/dL 265-497 N IRON SATURATION (test code = FESAT) 12 % 20-55 L BASIC METABOLIC [id number] 05:11:00* Test Item Value Reference Range Interpretation Comments SODIUM (test code = NA) 137 mmol/L 137-145 N POTASSIUM (test code = K) 5.1 mmol/L 3.4-5.0 H IS THE SAMPLE HEMOLYZED?:NOHEMOLYSIS GRADE:0 CHLORIDE (test code = CL) 98 mmol/L 98-107 N CARBON DIOXIDE (test code = CO2) 26 mmol/L 22-30 N GLUCOSE (test code = GLU) 98 mg/dL 74-106 N BLOOD UREA NITROGEN (test code = BUN) 44 mg/dL 7-17 H GLOMERULAR FILTRATION RATE (test code = GFR) 34 >60 L The estimated glomerular filtration rate is computed usingpatient race, age (>18), sex, and serum creatinine. If anyof the needed data elements are missing the Laboratory cannot compute an estimation of the glomerular filtration rate. CREATININE (test code = CREAT) 1.6 mg/dL 0.5-1.0 H CALCIUM (test code = CA) 10.0 mg/dL 8.4-10.2 N FE W/TOTAL IRON BINDING CAP.2018-12-23 05:08:00* Test Item Value Reference Range Interpretation Comments IRON (test code = IRON) 36 ug/dL 37-170 L TOTAL IRON BINDING CAPACITY (test code = TIBC) ug/dL 265-497 IRON SATURATION (test code = FESAT) % 20-55 RETICULOCYTE [id number] 05:02:00* Test Item Value Reference Range Interpretation Comments RETICULOCYTE COUNT (test code = RETICA) 7.1 % 0.5-1.5 H CBC W/AUTO [id number] 04:48:00* Test Item Value Reference Range Interpretation Comments WHITE BLOOD CELL (test code = WBC) 11.1 x10 3/uL 5.0-12.0 N RED BLOOD CELL (test code = RBC) 2.52 x10 6/uL 4.20-5.40 L HEMOGLOBIN (test code = HGB) 7.7 g/dL 12.0-16.0 L HEMATOCRIT (test code = HCT) 25.5 % 36.0-46.0 L MEAN CELL VOLUME (test code = MCV) 101 fL 81-99 H MEAN CELL HGB (test code = MCH) 30.6 pg 27-31 N MEAN CELL HGB CONCENTRATION (test code = MCHC) 30.2 g/dL 33-37 L RED CELL DISTRIBUTION WIDTH (test code = RDW) 16.7 % 11.5-15. 5 H PLATELET COUNT (test code = PLT) 326 x10 3/uL 130-400 N MEAN PLATELET VOLUME (test code = MPV) 11.9 fL 9.4-16.4 N NEUTROPHIL % (test code = NT%) 85.2 % 43-65 H IMMATURE GRANULOCYTE % (test code = IG%) 4.6 % 0.0-2.0 H LYMPHOCYTE % (test code = LY%) 4.3 % 20.5-45.5 L MONOCYTE % (test code = MO%) 4.9 % 5.5-11.7 L EOSINOPHIL % (test code = EO%) 0.5 % 0.9-2.9 L BASOPHIL % (test code = BA%) 0.5 % 0.2-1.0 N NUCLEATED RBC % (test code = NRBC%) 0.6 % 0-1.0 N NEUTROPHIL # (test code = NT#) 9.43 x10 3/uL 2.2-4.8 H IMMATURE GRANULOCYTE # (test code = IG#) 0.51 x10 3/uL 0-0.03 H LYMPHOCYTE # (test code = LY#) 0.48 x10 3/uL 1.3-2.9 L MONOCYTE # (test code = MO#) 0.54 x10 3/uL 0.3-0.8 N EOSINOPHIL # (test code = EO#) 0.06 x10 3/uL 0.0-0.2 N BASOPHIL # (test code = BA#) 0.05 x10 3/uL 0.0-0.1 N [id number] 04:36:00* Test Item Value Reference Range Interpretation Comments GLUBED (test code = GLUBED) 97 MG/DL 74-106 N [id number] 21:06:00* Test Item Value Reference Range Interpretation Comments GLUBED (test code = GLUBED) 137 MG/DL 74-106 H BASIC METABOLIC [id number] 05:34:00* Test Item Value Reference Range Interpretation Comments SODIUM (test code = NA) 138 mmol/L 137-145 N POTASSIUM (test code = K) 4.6 mmol/L 3.4-5.0 N CHLORIDE (test code = CL) 103 mmol/L 98-107 N CARBON DIOXIDE (test code = CO2) 22 mmol/L 22-30 N GLUCOSE (test code = GLU) 90 mg/dL 74-106 N BLOOD UREA NITROGEN (test code = BUN) 39 mg/dL 7-17 H GLOMERULAR FILTRATION RATE (test code = GFR) 40 >60 L The estimated glomerular filtration rate is computed usingpatient race, age (>18), sex, and serum creatinine. If anyof the needed data elements are missing the Laboratory cannot compute an estimation of the glomerular filtration rate. CREATININE (test code = CREAT) 1.4 mg/dL 0.5-1.0 H CALCIUM (test code = CA) 9.2 mg/dL 8.4-10.2 N [id number] 05:34:00* Test Item Value Reference Range Interpretation Comments MAGNESIUM (test code = MAG) 1.9 mg/dL 1.6-2.3 N BASIC METABOLIC [id number] 05:33:00* Test Item Value Reference Range Interpretation Comments SODIUM (test code = NA) 138 mmol/L 137-145 N POTASSIUM (test code = K) 4.6 mmol/L 3.4-5.0 N CHLORIDE (test code = CL) 103 mmol/L 98-107 N CARBON DIOXIDE (test code = CO2) 22 mmol/L 22-30 N GLUCOSE (test code = GLU) 90 mg/dL 74-106 N BLOOD UREA NITROGEN (test code = BUN) 39 mg/dL 7-17 H GLOMERULAR FILTRATION RATE (test code = GFR) 40 >60 L The estimated glomerular filtration rate is computed usingpatient race, age (>18), sex, and serum creatinine. If anyof the needed data elements are missing the Laboratory cannot compute an estimation of the glomerular filtration rate. CREATININE (test code = CREAT) 1.4 mg/dL 0.5-1.0 H CALCIUM (test code = CA) 9.2 mg/dL 8.4-10.2 N [id number] 05:33:00* Test Item Value Reference Range Interpretation Comments MAGNESIUM (test code = MAG) mg/dL 1.6-2.3 CBC W/AUTO [id number] 05:20:00* Test Item Value Reference Range Interpretation Comments WHITE BLOOD CELL (test code = WBC) 9.9 x10 3/uL 5.0-12.0 N RED BLOOD CELL (test code = RBC) 2.35 x10 6/uL 4.20-5.40 L HEMOGLOBIN (test code = HGB) 7.4 g/dL 12.0-16.0 L HEMATOCRIT (test code = HCT) 23.8 % 36.0-46.0 L MEAN CELL VOLUME (test code = MCV) 101 fL 81-99 H MEAN CELL HGB (test code = MCH) 31.5 pg 27-31 H MEAN CELL HGB CONCENTRATION (test code = MCHC) 31.1 g/dL 33-37 L RED CELL DISTRIBUTION WIDTH (test code = RDW) 17.3 % 11.5-15. 5 H PLATELET COUNT (test code = PLT) 233 x10 3/uL 130-400 N MEAN PLATELET VOLUME (test code = MPV) 12.1 fL 9.4-16.4 N NEUTROPHIL % (test code = NT%) 80.5 % 43-65 H IMMATURE GRANULOCYTE % (test code = IG%) 4.7 % 0.0-2.0 H LYMPHOCYTE % (test code = LY%) 5.2 % 20.5-45.5 L MONOCYTE % (test code = MO%) 8.3 % 5.5-11.7 N EOSINOPHIL % (test code = EO%) 0.9 % 0.9-2.9 N BASOPHIL % (test code = BA%) 0.4 % 0.2-1.0 N NUCLEATED RBC % (test code = NRBC%) 1.1 % 0-1.0 H NEUTROPHIL # (test code = NT#) 7.94 x10 3/uL 2.2-4.8 H IMMATURE GRANULOCYTE # (test code = IG#) 0.46 x10 3/uL 0-0.03 H LYMPHOCYTE # (test code = LY#) 0.51 x10 3/uL 1.3-2.9 L MONOCYTE # (test code = MO#) 0.82 x10 3/uL 0.3-0.8 H EOSINOPHIL # (test code = EO#) 0.09 x10 3/uL 0.0-0.2 N BASOPHIL # (test code = BA#) 0.04 x10 3/uL 0.0-0.1 N DIFFERENTIAL [id number] 05:20:00* Test Item Value Reference Range Interpretation Comments DIFFERENTIAL COMMENT (test code = DC) CBC W/AUTO [id number] 05:20:00* Test Item Value Reference Range Interpretation Comments WHITE BLOOD CELL (test code = WBC) 9.9 x10 3/uL 5.0-12.0 N RED BLOOD CELL (test code = RBC) 2.35 x10 6/uL 4.20-5.40 L HEMOGLOBIN (test code = HGB) 7.4 g/dL 12.0-16.0 L HEMATOCRIT (test code = HCT) 23.8 % 36.0-46.0 L MEAN CELL VOLUME (test code = MCV) 101 fL 81-99 H MEAN CELL HGB (test code = MCH) 31.5 pg 27-31 H MEAN CELL HGB CONCENTRATION (test code = MCHC) 31.1 g/dL 33-37 L RED CELL DISTRIBUTION WIDTH (test code = RDW) 17.3 % 11.5-15. 5 H PLATELET COUNT (test code = PLT) 233 x10 3/uL 130-400 N MEAN PLATELET VOLUME (test code = MPV) 12.1 fL 9.4-16.4 N NEUTROPHIL % (test code = NT%) 80.5 % 43-65 H IMMATURE GRANULOCYTE % (test code = IG%) 4.7 % 0.0-2.0 H LYMPHOCYTE % (test code = LY%) 5.2 % 20.5-45.5 L MONOCYTE % (test code = MO%) 8.3 % 5.5-11.7 N EOSINOPHIL % (test code = EO%) 0.9 % 0.9-2.9 N BASOPHIL % (test code = BA%) 0.4 % 0.2-1.0 N NUCLEATED RBC % (test code = NRBC%) 1.1 % 0-1.0 H NEUTROPHIL # (test code = NT#) 7.94 x10 3/uL 2.2-4.8 H IMMATURE GRANULOCYTE # (test code = IG#) 0.46 x10 3/uL 0-0.03 H LYMPHOCYTE # (test code = LY#) 0.51 x10 3/uL 1.3-2.9 L MONOCYTE # (test code = MO#) 0.82 x10 3/uL 0.3-0.8 H EOSINOPHIL # (test code = EO#) 0.09 x10 3/uL 0.0-0.2 N BASOPHIL # (test code = BA#) 0.04 x10 3/uL 0.0-0.1 N [id number] 21:18:00* Test Item Value Reference Range Interpretation Comments GLUBED (test code = GLUBED) 143 MG/DL 74-106 H BASIC METABOLIC [id number] 05:00:00* Test Item Value Reference Range Interpretation Comments SODIUM (test code = NA) 137 mmol/L 137-145 N POTASSIUM (test code = K) 4.9 mmol/L 3.4-5.0 N CHLORIDE (test code = CL) 105 mmol/L 98-107 N CARBON DIOXIDE (test code = CO2) 26 mmol/L 22-30 N GLUCOSE (test code = GLU) 92 mg/dL 74-106 N BLOOD UREA NITROGEN (test code = BUN) 41 mg/dL 7-17 H GLOMERULAR FILTRATION RATE (test code = GFR) 43 >60 L The estimated glomerular filtration rate is computed usingpatient race, age (>18), sex, and serum creatinine. If anyof the needed data elements are missing the Laboratory cannot compute an estimation of the glomerular filtration rate. CREATININE (test code = CREAT) 1.3 mg/dL 0.5-1.0 H CALCIUM (test code = CA) 9.2 mg/dL 8.4-10.2 N [id number] 05:00:00* Test Item Value Reference Range Interpretation Comments MAGNESIUM (test code = MAG) 2.1 mg/dL 1.6-2.3 N HGB [id number] 15:30:00* Test Item Value Reference Range Interpretation Comments HEMOGLOBIN (test code = HGB) 8.0 g/dL 12.0-16.0 L HEMATOCRIT (test code = HCT) 25.4 % 36.0-46.0 L CBC W/MANUAL [id number] 04:07:00* Test Item Value Reference Range Interpretation Comments WHITE BLOOD CELL (test code = WBC) 12.4 x10 3/uL 5.0-12.0 H RED BLOOD CELL (test code = RBC) 2.38 x10 6/uL 4.20-5.40 L HEMOGLOBIN (test code = HGB) 7.5 g/dL 12.0-16.0 L HEMATOCRIT (test code = HCT) 24.3 % 36.0-46.0 L MEAN CELL VOLUME (test code = MCV) 102 fL 81-99 H MEAN CELL HGB (test code = MCH) 31.5 pg 27-31 H MEAN CELL HGB CONCENTRATION (test code = MCHC) 30.9 g/dL 33-37 L RED CELL DISTRIBUTION WIDTH (test code = RDW) 18.2 % 11.5-15. 5 H PLATELET COUNT (test code = PLT) 227 x10 3/uL 130-400 N MEAN PLATELET VOLUME (test code = MPV) 12.5 fL 9.4-16.4 N TOTAL CELLS COUNTED (test code = TCC) 100 #CELLS SEGMENTED NEUTROPHILS (test code = SEG) 63 % 43-65 N BAND NEUTROPHIL (test code = BAND) 23 % 0-1 H LYMPHOCYTE (test code = LYMPH) 5 % 20.5-45.5 L ATYPICAL LYMPH (test code = ALYMPH) 1 % 0-1 N MONOCYTE (test code = MON) 6 % 5.5-11.7 N METAMYELOCYTE (test code = META) 1 % 0-0 H MYELOCYTE (test code = MYELO) 2 % 0-0 H POLYCHROMASIA (test code = POLC) 1+ NONE SEEN A ANISOCYTOSIS (test code = ANISO) 1+ NONE SEEN A MICROCYTOSIS (test code = MICR) 1+ NONE SEEN A TARGET CELLS (test code = TGT) 1+ NONE SEEN A TEAR DROP CELLS (test code = TEAR) 1+ NONE SEEN A SCHISTOCYTES (test code = DEDRA) 1+ NONE SEEN A STOMATOCYTES (test code = STO) 1+ NONE SEEN A PLATELET ESTIMATE (test code = PLTEST) ADEQUATE ADEQUATE PLATELET MORPHOLOGY (test code = PLTMORPH) NORMAL NORMAL Spec Comments: Order to be discontinued when PN is stoppedComments to Phleb: IF not already drawn todayBASI METABOLIC [id number] 03:53:00* Test Item Value Reference Range Interpretation Comments SODIUM (test code = NA) 139 mmol/L 137-145 N POTASSIUM (test code = K) 5.4 mmol/L 3.4-5.0 H IS THE SAMPLE HEMOLYZED?:NHEMOLYSIS GRADE:1 CHLORIDE (test code = CL) 108 mmol/L 98-107 H CARBON DIOXIDE (test code = CO2) 19 mmol/L 22-30 L GLUCOSE (test code = GLU) 102 mg/dL 74-106 N BLOOD UREA NITROGEN (test code = BUN) 40 mg/dL 7-17 H GLOMERULAR FILTRATION RATE (test code = GFR) 43 >60 L The estimated glomerular filtration rate is computed usingpatient race, age (>18), sex, and serum creatinine. If anyof the needed data elements are missing the Laboratory cannot compute an estimation of the glomerular filtration rate. CREATININE (test code = CREAT) 1.3 mg/dL 0.5-1.0 H CALCIUM (test code = CA) 9.2 mg/dL 8.4-10.2 N Spec Comments: Order to be discontinued when PN is stoppedComments to Phleb: IF not already drawn [id number] 03:53:00* Test Item Value Reference Range Interpretation Comments PHOSPHOROUS (test code = PHOS) 5.0 mg/dL 2.5-4.5 H Spec Comments: Order to be discontinued when PN is stoppedComments to Phleb: IF not already drawn [id number] 03:53:00* Test Item Value Reference Range Interpretation Comments MAGNESIUM (test code = MAG) 2.2 mg/dL 1.6-2.3 N Spec Comments: Order to be discontinued when PN is stoppedComments to Phleb: IF not already drawn todayCBC W/MANUAL [id number] 03:37:00* Test Item Value Reference Range Interpretation Comments WHITE BLOOD CELL (test code = WBC) 12.4 x10 3/uL 5.0-12.0 H RED BLOOD CELL (test code = RBC) 2.38 x10 6/uL 4.20-5.40 L HEMOGLOBIN (test code = HGB) 7.5 g/dL 12.0-16.0 L HEMATOCRIT (test code = HCT) 24.3 % 36.0-46.0 L MEAN CELL VOLUME (test code = MCV) 102 fL 81-99 H MEAN CELL HGB (test code = MCH) 31.5 pg 27-31 H MEAN CELL HGB CONCENTRATION (test code = MCHC) 30.9 g/dL 33-37 L RED CELL DISTRIBUTION WIDTH (test code = RDW) 18.2 % 11.5-15. 5 H PLATELET COUNT (test code = PLT) 227 x10 3/uL 130-400 N MEAN PLATELET VOLUME (test code = MPV) 12.5 fL 9.4-16.4 N TOTAL CELLS COUNTED (test code = TCC) #CELLS SEGMENTED NEUTROPHILS (test code = SEG) % 43-65 LYMPHOCYTE (test code = LYMPH) % 20.5-45.5 Spec Comments: Order to be discontinued when PN is stoppedComments to Phleb: IF not already drawn todayCBC W/MANUAL [id number] 03:37:00* Test Item Value Reference Range Interpretation Comments WHITE BLOOD CELL (test code = WBC) 12.4 x10 3/uL 5.0-12.0 H RED BLOOD CELL (test code = RBC) 2.38 x10 6/uL 4.20-5.40 L HEMOGLOBIN (test code = HGB) 7.5 g/dL 12.0-16.0 L HEMATOCRIT (test code = HCT) 24.3 % 36.0-46.0 L MEAN CELL VOLUME (test code = MCV) 102 fL 81-99 H MEAN CELL HGB (test code = MCH) 31.5 pg 27-31 H MEAN CELL HGB CONCENTRATION (test code = MCHC) 30.9 g/dL 33-37 L RED CELL DISTRIBUTION WIDTH (test code = RDW) 18.2 % 11.5-15. 5 H PLATELET COUNT (test code = PLT) 227 x10 3/uL 130-400 N MEAN PLATELET VOLUME (test code = MPV) 12.5 fL 9.4-16.4 N TOTAL CELLS COUNTED (test code = TCC) #CELLS SEGMENTED NEUTROPHILS (test code = SEG) % 43-65 LYMPHOCYTE (test code = LYMPH) % 20.5-45.5 Spec Comments: Order to be discontinued when PN is stoppedComments to Phleb: IF not already drawn [id number] 17:06:00* Test Item Value Reference Range Interpretation Comments GLUBED (test code = GLUBED) 93 MG/DL 74-106 N [id number] 05:51:00* Test Item Value Reference Range Interpretation Comments GLUBED (test code = GLUBED) 72 MG/DL 74-106 L CBC W/MANUAL [id number] 04:36:00* Test Item Value Reference Range Interpretation Comments WHITE BLOOD CELL (test code = WBC) 17.8 x10 3/uL 5.0-12.0 H RED BLOOD CELL (test code = RBC) 2.58 x10 6/uL 4.20-5.40 L HEMOGLOBIN (test code = HGB) 8.1 g/dL 12.0-16.0 L HEMATOCRIT (test code = HCT) 26.4 % 36.0-46.0 L MEAN CELL VOLUME (test code = MCV) 102 fL 81-99 H MEAN CELL HGB (test code = MCH) 31.4 pg 27-31 H MEAN CELL HGB CONCENTRATION (test code = MCHC) 30.7 g/dL 33-37 L RED CELL DISTRIBUTION WIDTH (test code = RDW) 18.6 % 11.5-15. 5 H PLATELET COUNT (test code = PLT) 220 x10 3/uL 130-400 N MEAN PLATELET VOLUME (test code = MPV) 12.9 fL 9.4-16.4 N TOTAL CELLS COUNTED (test code = TCC) 100 #CELLS SEGMENTED NEUTROPHILS (test code = SEG) 89 % 43-65 H LYMPHOCYTE (test code = LYMPH) 3 % 20.5-45.5 L ATYPICAL LYMPH (test code = ALYMPH) 1 % 0-1 N MONOCYTE (test code = MON) 1 % 5.5-11.7 L EOSINOPHIL (test code = EOS) 1 % 0.9-2.9 N METAMYELOCYTE (test code = META) 5 % 0-0 H NUCLEATED RED BLOOD CELL (test code = NRBC) 4.6 /100WBC 0-0 H POLYCHROMASIA (test code = POLC) 1+ NONE SEEN A ANISOCYTOSIS (test code = ANISO) 1+ NONE SEEN A MICROCYTOSIS (test code = MICR) 1+ NONE SEEN A PLATELET ESTIMATE (test code = PLTEST) ADEQUATE ADEQUATE PLATELET MORPHOLOGY (test code = PLTMORPH) LARGE PLATELETS SEEN NOR MAL Spec Comments: Order to be discontinued when PN is stoppedComments to Phleb: IF not already drawn todayBASI METABOLIC [id number] 04:29:00* Test Item Value Reference Range Interpretation Comments SODIUM (test code = NA) 138 mmol/L 137-145 N POTASSIUM (test code = K) 5.1 mmol/L 3.4-5.0 H IS THE SAMPLE HEMOLYZED?:NOHEMOLYSIS GRADE:0 CHLORIDE (test code = CL) 109 mmol/L 98-107 H CARBON DIOXIDE (test code = CO2) 19 mmol/L 22-30 L GLUCOSE (test code = GLU) 76 mg/dL 74-106 N BLOOD UREA NITROGEN (test code = BUN) 40 mg/dL 7-17 H GLOMERULAR FILTRATION RATE (test code = GFR) 52 >60 L The estimated glomerular filtration rate is computed usingpatient race, age (>18), sex, and serum creatinine. If anyof the needed data elements are missing the Laboratory cannot compute an estimation of the glomerular filtration rate. CREATININE (test code = CREAT) 1.1 mg/dL 0.5-1.0 H CALCIUM (test code = CA) 8.9 mg/dL 8.4-10.2 N Spec Comments: Order to be discontinued when PN is stoppedComments to Phleb: IF not already drawn todaySpec Comments: weeklyComments to Phleb: to be discontinue d when PN is [id number] 04:29:00* Test Item Value Reference Range Interpretation Comments PHOSPHOROUS (test code = PHOS) 4.1 mg/dL 2.5-4.5 N Spec Comments: Order to be discontinued when PN is stoppedComments to Phleb: IF not already drawn todaySpec Comments: weeklyComments to Phleb: to be discontinue d when PN is [id number] 04:29:00* Test Item Value Reference Range Interpretation Comments TRIGLYCERIDES (test code = TRIG) 285 mg/dL TRIGLYCERIDES REFERENCE RANGE:Normal: <150 mg/dLBorderline High: 150-199 mg/dLHigh: 200-499 mg/dLVery High: >=500 mg/dL Spec Comments: Order to be discontinued when PN is stoppedComments to Phleb: IF not already drawn todaySpec Comments: weeklyComments to Phleb: to be discontinue d when PN is [id number] 04:29:00* Test Item Value Reference Range Interpretation Comments MAGNESIUM (test code = MAG) 2.3 mg/dL 1.6-2.3 N Spec Comments: Order to be discontinued when PN is stoppedComments to Phleb: IF not already drawn todaySpec Comments: weeklyComments to Phleb: to be discontinue d when PN is [id number] 04:29:00* Test Item Value Reference Range Interpretation Comments PREALBUMIN (test code = PREALB) 43.14 mg/dL 17.6-36.0 H Spec Comments: Order to be discontinued when PN is stoppedComments to Phleb: IF not already drawn todaySpec Comments: weeklyComments to Phleb: to be discontinue d when PN is stoppedBASIC METABOLIC [id number] 04:20:00* Test Item Value Reference Range Interpretation Comments SODIUM (test code = NA) 138 mmol/L 137-145 N POTASSIUM (test code = K) 5.1 mmol/L 3.4-5.0 H IS THE SAMPLE HEMOLYZED?:NOHEMOLYSIS GRADE:0 CHLORIDE (test code = CL) 109 mmol/L 98-107 H CARBON DIOXIDE (test code = CO2) 19 mmol/L 22-30 L GLUCOSE (test code = GLU) 76 mg/dL 74-106 N BLOOD UREA NITROGEN (test code = BUN) 40 mg/dL 7-17 H GLOMERULAR FILTRATION RATE (test code = GFR) 52 >60 L The estimated glomerular filtration rate is computed usingpatient race, age (>18), sex, and serum creatinine. If anyof the needed data elements are missing the Laboratory cannot compute an estimation of the glomerular filtration rate. CREATININE (test code = CREAT) 1.1 mg/dL 0.5-1.0 H CALCIUM (test code = CA) 8.9 mg/dL 8.4-10.2 N Spec Comments: Order to be discontinued when PN is stoppedComments to Phleb: IF not already drawn todaySpec Comments: weeklyComments to Phleb: to be discontinue d when PN is [id number] 04:20:00* Test Item Value Reference Range Interpretation Comments PHOSPHOROUS (test code = PHOS) 4.1 mg/dL 2.5-4.5 N Spec Comments: Order to be discontinued when PN is stoppedComments to Phleb: IF not already drawn todaySpec Comments: weeklyComments to Phleb: to be discontinue d when PN is [id number] 04:20:00* Test Item Value Reference Range Interpretation Comments TRIGLYCERIDES (test code = TRIG) 285 mg/dL TRIGLYCERIDES REFERENCE RANGE:Normal: <150 mg/dLBorderline High: 150-199 mg/dLHigh: 200-499 mg/dLVery High: >=500 mg/dL Spec Comments: Order to be discontinued when PN is stoppedComments to Phleb: IF not already drawn todaySpec Comments: weeklyComments to Phleb: to be discontinue d when PN is [id number] 04:20:00* Test Item Value Reference Range Interpretation Comments MAGNESIUM (test code = MAG) 2.3 mg/dL 1.6-2.3 N Spec Comments: Order to be discontinued when PN is stoppedComments to Phleb: IF not already drawn todaySpec Comments: weeklyComments to Phleb: to be discontinue d when PN is [id number] 04:20:00* Test Item Value Reference Range Interpretation Comments PREALBUMIN (test code = PREALB) mg/dL 17.6-36.0 Spec Comments: Order to be discontinued when PN is stoppedComments to Phleb: IF not already drawn todaySpec Comments: weeklyComments to Phleb: to be discontinue d when PN is stoppedPROTHROMBIN [id number] 04:09:00* Test Item Value Reference Range Interpretation Comments PROTHROMBIN TIME PATIENT (test code = PTP) 13.2 SECONDS 9.2-12.1 H INTERNATIONAL NORMAL RATIO (test code = INR) 1.2 The INR is to be used only for monitoring ORAL ANTICOAGULANTTHERAPY. Indication INR Value1. Prophylaxis/treatment of: Venous Thrombosis, Pulmonary Embolism 2.0 - 3.02. Prevention of systemic embolism from: Tissue heart valves 2.0 - 3.0 Acute myocardial infarction (to present systemic embolism)* 2.0 - 3.0 Valvular heart disease 2.0 - 3.0 Atrial fibrillation 2.0 - 3.03. Mechanical prosthetic valves (high risk) 2.5 - 3.5 * If oral anticoagulant therapy is elected to preventrecurrent myocardial infarction, an INR of 2.5-3.5 isrecommended, consistent with Food and Drug Administrationrecommendations. IS PATIENT ON ANTICOAGULANTS ? NOSpec Comments: weeklyComments to Phleb: to be d iscontinued when PN is stoppedCBC W/MANUAL [id number] 04:03:00* Test Item Value Reference Range Interpretation Comments WHITE BLOOD CELL (test code = WBC) 17.8 x10 3/uL 5.0-12.0 H RED BLOOD CELL (test code = RBC) 2.58 x10 6/uL 4.20-5.40 L HEMOGLOBIN (test code = HGB) 8.1 g/dL 12.0-16.0 L HEMATOCRIT (test code = HCT) 26.4 % 36.0-46.0 L MEAN CELL VOLUME (test code = MCV) 102 fL 81-99 H MEAN CELL HGB (test code = MCH) 31.4 pg 27-31 H MEAN CELL HGB CONCENTRATION (test code = MCHC) 30.7 g/dL 33-37 L RED CELL DISTRIBUTION WIDTH (test code = RDW) 18.6 % 11.5-15. 5 H PLATELET COUNT (test code = PLT) 220 x10 3/uL 130-400 N MEAN PLATELET VOLUME (test code = MPV) 12.9 fL 9.4-16.4 N TOTAL CELLS COUNTED (test code = TCC) #CELLS SEGMENTED NEUTROPHILS (test code = SEG) % 43-65 LYMPHOCYTE (test code = LYMPH) % 20.5-45.5 Spec Comments: Order to be discontinued when PN is stoppedComments to Phleb: IF not already drawn todayCBC W/MANUAL [id number] 04:03:00* Test Item Value Reference Range Interpretation Comments WHITE BLOOD CELL (test code = WBC) 17.8 x10 3/uL 5.0-12.0 H RED BLOOD CELL (test code = RBC) 2.58 x10 6/uL 4.20-5.40 L HEMOGLOBIN (test code = HGB) 8.1 g/dL 12.0-16.0 L HEMATOCRIT (test code = HCT) 26.4 % 36.0-46.0 L MEAN CELL VOLUME (test code = MCV) 102 fL 81-99 H MEAN CELL HGB (test code = MCH) 31.4 pg 27-31 H MEAN CELL HGB CONCENTRATION (test code = MCHC) 30.7 g/dL 33-37 L RED CELL DISTRIBUTION WIDTH (test code = RDW) 18.6 % 11.5-15. 5 H PLATELET COUNT (test code = PLT) 220 x10 3/uL 130-400 N MEAN PLATELET VOLUME (test code = MPV) 12.9 fL 9.4-16.4 N TOTAL CELLS COUNTED (test code = TCC) #CELLS SEGMENTED NEUTROPHILS (test code = SEG) % 43-65 LYMPHOCYTE (test code = LYMPH) % 20.5-45.5 Spec Comments: Order to be discontinued when PN is stoppedComments to Phleb: IF not already drawn [id number] 02:06:00* Test Item Value Reference Range Interpretation Comments GLUBED (test code = GLUBED) 91 MG/DL 74-106 N [id number] 16:55:00* Test Item Value Reference Range Interpretation Comments GLUBED (test code = GLUBED) 91 MG/DL 74-106 N [id number] 12:42:00* Test Item Value Reference Range Interpretation Comments MAGNESIUM (test code = MAG) 2.7 mg/dL 1.6-2.3 H [id number] 11:58:00* Test Item Value Reference Range Interpretation Comments GLUBED (test code = GLUBED) 139 MG/DL 74-106 H [id number] 05:30:00* Test Item Value Reference Range Interpretation Comments GLUBED (test code = GLUBED) 116 MG/DL 74-106 H COMPREHENSIVE METABOLIC [id number] 03:56:00* Test Item Value Reference Range Interpretation Comments SODIUM (test code = NA) 135 mmol/L 137-145 L POTASSIUM (test code = K) 3.8 mmol/L 3.4-5.0 N CHLORIDE (test code = CL) 108 mmol/L 98-107 H CARBON DIOXIDE (test code = CO2) 18 mmol/L 22-30 L GLUCOSE (test code = GLU) 100 mg/dL 74-106 N BLOOD UREA NITROGEN (test code = BUN) 35 mg/dL 7-17 H GLOMERULAR FILTRATION RATE (test code = GFR) 58 >60 L The estimated glomerular filtration rate is computed usingpatient race, age (>18), sex, and serum creatinine. If anyof the needed data elements are missing the Laboratory cannot compute an estimation of the glomerular filtration rate. CREATININE (test code = CREAT) 1.0 mg/dL 0.5-1.0 N TOTAL PROTEIN (test code = PROT) 5.4 g/dL 6.3-8.2 L ALBUMIN (test code = ALB) 2.8 g/dL 3.5-5.0 L CALCIUM (test code = CA) 8.4 mg/dL 8.4-10.2 N BILIRUBIN TOTAL (test code = BILT) 0.2 mg/dL 0.2-1.3 N BILIRUBIN CONJUGATED (test code = BILCON) 0 mg/dL 0-0.3 N ~~~~~~~~~~~~~~~~~~~~~~~~~~~~~~~~~~~~~~~~~~~~~~~~~~~~~~~~~~~~CONJUGATED BILIRUBIN IS THE REPLACEMENT ASSAY FOR DIRECTBILIRUBIN.~~~~~~~~~~~~~~~~~~~~~~~~~~~~~~~~~~~~~~~~~~~~~~~~~~~~~~~~~~~~ BILIRUBIN UNCONJUGATED (test code = BILUNC) 0 mg/dL 0-1.1 N SGOT/AST (test code = AST) 97 U/L 15-46 H SGPT/ALT (test code = ALT) 68 U/L 13-69 N ALKALINE PHOSPHATASE (test code = ALKP) 231 U/L 38-126 H [id number] 03:56:00* Test Item Value Reference Range Interpretation Comments PHOSPHOROUS (test code = PHOS) 3.3 mg/dL 2.5-4.5 N [id number] 03:56:00* Test Item Value Reference Range Interpretation Comments LIPASE (test code = LIP) 2835 U/L 23-300 H [id number] 03:56:00* Test Item Value Reference Range Interpretation Comments MAGNESIUM (test code = MAG) 1.5 mg/dL 1.6-2.3 L CBC W/MANUAL [id number] 03:55:00* Test Item Value Reference Range Interpretation Comments WHITE BLOOD CELL (test code = WBC) 20.9 x10 3/uL 5.0-12.0 H RED BLOOD CELL (test code = RBC) 2.48 x10 6/uL 4.20-5.40 L HEMOGLOBIN (test code = HGB) 8.5 g/dL 12.0-16.0 L HEMATOCRIT (test code = HCT) 25.5 % 36.0-46.0 L MEAN CELL VOLUME (test code = MCV) 103 fL 81-99 H MEAN CELL HGB (test code = MCH) 34.3 pg 27-31 H MEAN CELL HGB CONCENTRATION (test code = MCHC) 33.3 g/dL 33-37 N RED CELL DISTRIBUTION WIDTH (test code = RDW) 18.3 % 11.5-15. 5 H PLATELET COUNT (test code = PLT) 195 x10 3/uL 130-400 N MEAN PLATELET VOLUME (test code = MPV) 13.0 fL 9.4-16.4 N TOTAL CELLS COUNTED (test code = TCC) 100 #CELLS SEGMENTED NEUTROPHILS (test code = SEG) 84 % 43-65 H BAND NEUTROPHIL (test code = BAND) 3 % 0-1 H LYMPHOCYTE (test code = LYMPH) 4 % 20.5-45.5 L MONOCYTE (test code = MON) 9 % 5.5-11.7 N EOSINOPHIL (test code = EOS) 1 % 0.9-2.9 N NUCLEATED RED BLOOD CELL (test code = NRBC) 4.4 /100WBC 0-0 H POLYCHROMASIA (test code = POLC) 1+ NONE SEEN A ANISOCYTOSIS (test code = ANISO) 1+ NONE SEEN A MICROCYTOSIS (test code = MICR) 2+ NONE SEEN A MACROCYTOSIS (test code = MACR) 1+ NONE SEEN A TARGET CELLS (test code = TGT) 1+ NONE SEEN A STOMATOCYTES (test code = STO) 1+ NONE SEEN A PLATELET ESTIMATE (test code = PLTEST) ADEQUATE ADEQUATE PLATELET MORPHOLOGY (test code = PLTMORPH) NORMAL NORMAL Spec Comments: Order to be discontinued when PN is stoppedComments to Phleb: IF not already drawn todayCOMPREHENSIVE METABOLIC [id number] 03:49:00* Test Item Value Reference Range Interpretation Comments SODIUM (test code = NA) 135 mmol/L 137-145 L POTASSIUM (test code = K) 3.8 mmol/L 3.4-5.0 N CHLORIDE (test code = CL) 108 mmol/L 98-107 H CARBON DIOXIDE (test code = CO2) 18 mmol/L 22-30 L GLUCOSE (test code = GLU) 100 mg/dL 74-106 N BLOOD UREA NITROGEN (test code = BUN) 35 mg/dL 7-17 H GLOMERULAR FILTRATION RATE (test code = GFR) 58 >60 L The estimated glomerular filtration rate is computed usingpatient race, age (>18), sex, and serum creatinine. If anyof the needed data elements are missing the Laboratory cannot compute an estimation of the glomerular filtration rate. CREATININE (test code = CREAT) 1.0 mg/dL 0.5-1.0 N TOTAL PROTEIN (test code = PROT) 5.4 g/dL 6.3-8.2 L ALBUMIN (test code = ALB) 2.8 g/dL 3.5-5.0 L CALCIUM (test code = CA) 8.4 mg/dL 8.4-10.2 N BILIRUBIN TOTAL (test code = BILT) 0.2 mg/dL 0.2-1.3 N BILIRUBIN CONJUGATED (test code = BILCON) 0 mg/dL 0-0.3 N ~~~~~~~~~~~~~~~~~~~~~~~~~~~~~~~~~~~~~~~~~~~~~~~~~~~~~~~~~~~~CONJUGATED BILIRUBIN IS THE REPLACEMENT ASSAY FOR DIRECTBILIRUBIN.~~~~~~~~~~~~~~~~~~~~~~~~~~~~~~~~~~~~~~~~~~~~~~~~~~~~~~~~~~~~ BILIRUBIN UNCONJUGATED (test code = BILUNC) 0 mg/dL 0-1.1 N SGOT/AST (test code = AST) 97 U/L 15-46 H SGPT/ALT (test code = ALT) 68 U/L 13-69 N ALKALINE PHOSPHATASE (test code = ALKP) 231 U/L 38-126 H [id number] 03:49:00* Test Item Value Reference Range Interpretation Comments PHOSPHOROUS (test code = PHOS) 3.3 mg/dL 2.5-4.5 N [id number] 03:49:00* Test Item Value Reference Range Interpretation Comments LIPASE (test code = LIP) U/L 23-300 [id number] 03:49:00* Test Item Value Reference Range Interpretation Comments MAGNESIUM (test code = MAG) 1.5 mg/dL 1.6-2.3 L THROMBOPLASTIN TIME [id number] 03:39:00* Test Item Value Reference Range Interpretation Comments THROMBOPLASTIN TIME PARTIAL (test code = PTT) 63.0 SECONDS 23.4-37. 0 H Therapeutic Range for Heparin EFFECTIVE 04/01/13 Heparin IU/mL aPTT Seconds0.3 64.30.7 88.8 IS PATIENT ON ANTICOAGULANTS ? YESLIST ANTICOAGULANT/ANTI PLT MEDICATION: Sukumar flood ProtocolCB W/MANUAL [id number] 03:29:00* Test Item Value Reference Range Interpretation Comments WHITE BLOOD CELL (test code = WBC) 20.9 x10 3/uL 5.0-12.0 H RED BLOOD CELL (test code = RBC) 2.48 x10 6/uL 4.20-5.40 L HEMOGLOBIN (test code = HGB) 8.5 g/dL 12.0-16.0 L HEMATOCRIT (test code = HCT) 25.5 % 36.0-46.0 L MEAN CELL VOLUME (test code = MCV) 103 fL 81-99 H MEAN CELL HGB (test code = MCH) 34.3 pg 27-31 H MEAN CELL HGB CONCENTRATION (test code = MCHC) 33.3 g/dL 33-37 N RED CELL DISTRIBUTION WIDTH (test code = RDW) 18.3 % 11.5-15. 5 H PLATELET COUNT (test code = PLT) 195 x10 3/uL 130-400 N MEAN PLATELET VOLUME (test code = MPV) 13.0 fL 9.4-16.4 N TOTAL CELLS COUNTED (test code = TCC) #CELLS SEGMENTED NEUTROPHILS (test code = SEG) % 43-65 LYMPHOCYTE (test code = LYMPH) % 20.5-45.5 Spec Comments: Order to be discontinued when PN is stoppedComments to Phleb: IF not already drawn todayROBERTS [place] W/MANUAL [id number] 03:29:00* Test Item Value Reference Range Interpretation Comments WHITE BLOOD CELL (test code = WBC) 20.9 x10 3/uL 5.0-12.0 H RED BLOOD CELL (test code = RBC) 2.48 x10 6/uL 4.20-5.40 L HEMOGLOBIN (test code = HGB) 8.5 g/dL 12.0-16.0 L HEMATOCRIT (test code = HCT) 25.5 % 36.0-46.0 L MEAN CELL VOLUME (test code = MCV) 103 fL 81-99 H MEAN CELL HGB (test code = MCH) 34.3 pg 27-31 H MEAN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 11:44:00* Test Item Value Reference Range Interpretation Comments THROMBOPLASTIN TIME PARTIAL (test code = PTT) 66.6 SECONDS 23.4-37. 0 H Therapeutic Range for Heparin EFFECTIVE 04/01/13 Heparin IU/mL aPTT Seconds0.3 64.30.7 88.8 IS PATIENT ON ANTICOAGULANTS ? YESLIST ANTICOAGULANT/ANTI PLT MEDICATION: Sukumar flood ProtocolComments to Phleb: THANK YOU!- XR CHEST 1 [id number] 11:42:00 FAX: Kofi Briones [phone] [place]: St: ADM Name: LEONOR JOHNSON [facility] : [birth year] Age/S: 68/F [address] Unit #: [id number] Loc: C.ICU0 [place] [address] Phys: Kofi Bean MD Acct: [id number] Dis Date: Status: ADM IN PHONE #: [phone] Exam Date: 12/14/2018 1126 FAX #: [phone] Reason: PNA EXAMS: CPT CODE: [id number] XR CHEST 1 V [id number] EXAM: - XR CHEST 1 V LOCATION: C3 HISTORY: PNA COMPARISON: 12/11/2018 FINDINGS: Single view of the chest. The nasogastric tube courses in the appropriate direction, but the distal aspe ct is outside the field of view. The right IJ CVC tip overlies the lower S VC. No pneumothorax. There is retrocardiac opacifica tion. Small left effusion is noted. Mediastinal contour is unremarkable. IMPRESSION: Small left effusion and retrocardiac opacit ies may represent singly or in combination atelectasis, effusion, or pne umonia. at 1 142 Reported and signed by: Ignacio Nieves MD CC: Kofi Bean MD Technologist: MISBAH TAPIA; Keyana Hancock [facility] Date/Time/By: ([id number]) : By: [email or web address] PAGE 1 Signed R eport FAX: Kofi Briones [place]: St: ADM Name: LEONOR VELIZ [facility] : 1950 Age/S: 68/F [address] Unit #: [id number] Loc: [address] [address] Phys: Kofi Bean MD Acct: [id number] Dis Date: Status: ADM IN PHONE #: [phone] Exam Date: 12/14/2018 1126 FAX #: [phone] Reason: PNA EXAMS: CPT CODE: [id number] XR CHEST 1 V [id number] < Continued> Orig Print D/T: S: 12/14/2018 (6681) PAGE 2 Signed Report [id number] 11:34:00* Test Item Value Reference Range Interpretation Comments GLUBED (test code = GLUBED) 105 MG/DL 74-106 N [id number] 11:34:00* Test Item Value Reference Range Interpretation Comments GLUBED (test code = GLUBED) 112 MG/DL 74-106 H THROMBOPLASTIN TIME [id number] 05:42:00* Test Item Value Reference Range Interpretation Comments THROMBOPLASTIN TIME PARTIAL (test code = PTT) 70.1 SECONDS 23.4-37. 0 H Therapeutic Range for Heparin EFFECTIVE 04/01/13 Heparin IU/mL aPTT Seconds0.3 64.30.7 88.8 IS PATIENT ON ANTICOAGULANTS ? YESLIST ANTICOAGULANT/ANTI PLT MEDICATION: Sukumar flood ProtocolBASIC METABOLIC [id number] 02:38:00* Test Item Value Reference Range Interpretation Comments SODIUM (test code = NA) 136 mmol/L 137-145 L POTASSIUM (test code = K) 4.7 mmol/L 3.4-5.0 N CHLORIDE (test code = CL) 112 mmol/L 98-107 H CARBON DIOXIDE (test code = CO2) 18 mmol/L 22-30 L GLUCOSE (test code = GLU) 133 mg/dL 74-106 H BLOOD UREA NITROGEN (test code = BUN) 31 mg/dL 7-17 H GLOMERULAR FILTRATION RATE (test code = GFR) >=60 max estimate >60 The estimated glomerular filtration rate is computed usingpatient race, age (>18), sex, and serum creatinine. If anyof the needed data elements are missing the Laboratory cannot compute an estimation of the glomerular filtration rate. CREATININE (test code = CREAT) 0.9 mg/dL 0.5-1.0 N CALCIUM (test code = CA) 7.2 mg/dL 8.4-10.2 L Spec Comments: Order to be discontinued when PN is stoppedComments to Phleb: IF not already drawn [id number] 02:38:00* Test Item Value Reference Range Interpretation Comments PHOSPHOROUS (test code = PHOS) 3.2 mg/dL 2.5-4.5 N Spec Comments: Order to be discontinued when PN is stoppedComments to Phleb: IF not already drawn [id number] 02:38:00* Test Item Value Reference Range Interpretation Comments MAGNESIUM (test code = MAG) 1.8 mg/dL 1.6-2.3 N Spec Comments: Order to be discontinued when PN is stoppedComments to Phleb: IF not already drawn todayCBC W/AUTO [id number] 02:26:00* Test Item Value Reference Range Interpretation Comments WHITE BLOOD CELL (test code = WBC) 16.6 x10 3/uL 5.0-12.0 H RED BLOOD CELL (test code = RBC) 2.74 x10 6/uL 4.20-5.40 L HEMOGLOBIN (test code = HGB) 9.1 g/dL 12.0-16.0 L HEMATOCRIT (test code = HCT) 28.3 % 36.0-46.0 L MEAN CELL VOLUME (test code = MCV) 103 fL 81-99 H MEAN CELL HGB (test code = MCH) 33.2 pg 27-31 H MEAN CELL HGB CONCENTRATION (test code = MCHC) 32.2 g/dL 33-37 L RED CELL DISTRIBUTION WIDTH (test code = RDW) 17.3 % 11.5-15. 5 H PLATELET COUNT (test code = PLT) 51 x10 3/uL 130-400 L MEAN PLATELET VOLUME (test code = MPV) 14.1 fL 9.4-16.4 N NEUTROPHIL % (test code = NT%) 90.4 % 43-65 H IMMATURE GRANULOCYTE % (test code = IG%) 4.9 % 0.0-2.0 H LYMPHOCYTE % (test code = LY%) 2.0 % 20.5-45.5 L MONOCYTE % (test code = MO%) 2.5 % 5.5-11.7 L EOSINOPHIL % (test code = EO%) 0.0 % 0.9-2.9 L BASOPHIL % (test code = BA%) 0.2 % 0.2-1.0 N NUCLEATED RBC % (test code = NRBC%) 0.3 % 0-1.0 N NEUTROPHIL # (test code = NT#) 14.97 x10 3/uL 2.2-4.8 H IMMATURE GRANULOCYTE # (test code = IG#) 0.81 x10 3/uL 0-0.03 H LYMPHOCYTE # (test code = LY#) 0.33 x10 3/uL 1.3-2.9 L MONOCYTE # (test code = MO#) 0.42 x10 3/uL 0.3-0.8 N EOSINOPHIL # (test code = EO#) 0.00 x10 3/uL 0.0-0.2 N BASOPHIL # (test code = BA#) 0.04 x10 3/uL 0.0-0.1 N Spec Comments: Order to be discontinued when PN is stoppedComments to Phleb: IF not already drawn [id number] 01:10:00* Test Item Value Reference Range Interpretation Comments GLUBED (test code = GLUBED) 140 MG/DL 74-106 H [id number] 00:05:00* Test Item Value Reference Range Interpretation Comments GLUBED (test code = GLUBED) 130 MG/DL 74-106 H PROTHROMBIN [id number] 23:34:00* Test Item Value Reference Range Interpretation Comments PROTHROMBIN TIME PATIENT (test code = PTP) 12.5 SECONDS 9.2-12.1 H INTERNATIONAL NORMAL RATIO (test code = INR) 1.1 The INR is to be used only for monitoring ORAL ANTICOAGULANTTHERAPY. Indication INR Value1. Prophylaxis/treatment of: Venous Thrombosis, Pulmonary Embolism 2.0 - 3.02. Prevention of systemic embolism from: Tissue heart valves 2.0 - 3.0 Acute myocardial infarction (to present systemic embolism)* 2.0 - 3.0 Valvular heart disease 2.0 - 3.0 Atrial fibrillation 2.0 - 3.03. Mechanical prosthetic valves (high risk) 2.5 - 3.5 * If oral anticoagulant therapy is elected to preventrecurrent myocardial infarction, an INR of 2.5-3.5 isrecommended, consistent with Food and Drug Administrationrecommendations. IS PATIENT ON ANTICOAGULANTS ? YESLIST ANTICOAGULANT/ANTI PLT MEDICATION: Sukumar remigio ProtocolTHROMBOPLASTIN TIME [id number] 23:34:00* Test Item Value Reference Range Interpretation Comments THROMBOPLASTIN TIME PARTIAL (test code = PTT) 73.5 SECONDS 23.4-37. 0 H Therapeutic Range for Heparin EFFECTIVE 04/01/13 Heparin IU/mL aPTT Seconds0.3 64.30.7 88.8 IS PATIENT ON ANTICOAGULANTS ? YESLIST ANTICOAGULANT/ANTI PLT MEDICATION: Sukumar remigio [id number] 21:34:00* Test Item Value Reference Range Interpretation Comments POTASSIUM (test code = K) 4.5 mmol/L 3.4-5.0 N THROMBOPLASTIN TIME [id number] 18:08:00* Test Item Value Reference Range Interpretation Comments THROMBOPLASTIN TIME PARTIAL (test code = PTT) 50.9 SECONDS 23.4-37. 0 H Therapeutic Range for Heparin EFFECTIVE 04/01/13 Heparin IU/mL aPTT Seconds0.3 64.30.7 88.8 IS PATIENT ON ANTICOAGULANTS ? YESLIST ANTICOAGULANT/ANTI PLT MEDICATION: Sukumar flood [id number] 12:02:00* Test Item Value Reference Range Interpretation Comments POTASSIUM (test code = K) 3.2 mmol/L 3.4-5.0 L [id number] 12:02:00* Test Item Value Reference Range Interpretation Comments MAGNESIUM (test code = MAG) 2.7 mg/dL 1.6-2.3 H [id number] 11:59:00* Test Item Value Reference Range Interpretation Comments POTASSIUM (test code = K) 3.2 mmol/L 3.4-5.0 L [id number] 11:59:00* Test Item Value Reference Range Interpretation Comments MAGNESIUM (test code = MAG) mg/dL 1.6-2.3 THROMBOPLASTIN TIME [id number] 11:54:00* Test Item Value Reference Range Interpretation Comments THROMBOPLASTIN TIME PARTIAL (test code = PTT) 56.5 SECONDS 23.4-37. 0 H Therapeutic Range for Heparin EFFECTIVE 04/01/13 Heparin IU/mL aPTT Seconds0.3 64.30.7 88.8 IS PATIENT ON ANTICOAGULANTS ? YESLIST ANTICOAGULANT/ANTI PLT MEDICATION: remigio [id number] 09:01:00* Test Item Value Reference Range Interpretation Comments GLUBED (test code = GLUBED) 129 MG/DL 74-106 H THROMBOPLASTIN TIME [id number] 05:20:00* Test Item Value Reference Range Interpretation Comments THROMBOPLASTIN TIME PARTIAL (test code = PTT) 45.3 SECONDS 23.4-37. 0 H Therapeutic Range for Heparin EFFECTIVE 04/01/13 Heparin IU/mL aPTT Seconds0.3 64.30.7 88.8 IS PATIENT ON ANTICOAGULANTS ? YESLIST ANTICOAGULANT/ANTI PLT MEDICATION: Sukumar cortezn ProtocolCBC W/MANUAL [id number] 04:22:00* Test Item Value Reference Range Interpretation Comments WHITE BLOOD CELL (test code = WBC) 12.6 x10 3/uL 5.0-12.0 H RED BLOOD CELL (test code = RBC) 3.35 x10 6/uL 4.20-5.40 L HEMOGLOBIN (test code = HGB) 10.9 g/dL 12.0-16.0 L HEMATOCRIT (test code = HCT) 34.0 % 36.0-46.0 L MEAN CELL VOLUME (test code = MCV) 102 fL 81-99 H MEAN CELL HGB (test code = MCH) 32.5 pg 27-31 H MEAN CELL HGB CONCENTRATION (test code = MCHC) 32.1 g/dL 33-37 L RED CELL DISTRIBUTION WIDTH (test code = RDW) 17.8 % 11.5-15. 5 H PLATELET COUNT (test code = PLT) 49 x10 3/uL 130-400 L MEAN PLATELET VOLUME (test code = MPV) 13.2 fL 9.4-16.4 N TOTAL CELLS COUNTED (test code = TCC) 100 #CELLS SEGMENTED NEUTROPHILS (test code = SEG) 80 % 43-65 H BAND NEUTROPHIL (test code = BAND) 5 % 0-1 H LYMPHOCYTE (test code = LYMPH) 4 % 20.5-45.5 L ATYPICAL LYMPH (test code = ALYMPH) 1 % 0-1 N MONOCYTE (test code = MON) 10 % 5.5-11.7 N EOSINOPHIL (test code = EOS) 1 % 0.9-2.9 N NUCLEATED RED BLOOD CELL (test code = NRBC) 0.8 /100WBC 0-0 H ANISOCYTOSIS (test code = ANISO) 1+ NONE SEEN A MACROCYTOSIS (test code = MACR) 1+ NONE SEEN A ACANTHOCYTES (test code = ACAN) 1+ NONE SEEN A PLATELET ESTIMATE (test code = PLTEST) SIGNIF DECREASED ADEQUATE PLATELET MORPHOLOGY (test code = PLTMORPH) LARGE PLATELETS SEEN NOR MAL Spec Comments: Order to be discontinued when PN is stoppedComments to Phleb: IF not [facility] [id number] 04:18:00* Test Item Value Reference Range Interpretation Comments SODIUM (test code = NA) 138 mmol/L 137-145 N POTASSIUM (test code = K) 3.3 mmol/L 3.4-5.0 L CHLORIDE (test code = CL) 114 mmol/L 98-107 H CARBON DIOXIDE (test code = CO2) 22 mmol/L 22-30 N GLUCOSE (test code = GLU) 106 mg/dL 74-106 N BLOOD UREA NITROGEN (test code = BUN) 30 mg/dL 7-17 H GLOMERULAR FILTRATION RATE (test code = GFR) >=60 max estimate >60 The estimated glomerular filtration rate is computed usingpatient race, age (>18), sex, and serum creatinine. If anyof the needed data elements are missing the Laboratory cannot compute an estimation of the glomerular filtration rate. CREATININE (test code = CREAT) 0.9 mg/dL 0.5-1.0 N CALCIUM (test code = CA) 7.5 mg/dL 8.4-10.2 L Spec Comments: Order to be discontinued when PN is stoppedComments to Phleb: IF not already drawn [id number] 04:18:00* Test Item Value Reference Range Interpretation Comments PHOSPHOROUS (test code = PHOS) 1.9 mg/dL 2.5-4.5 L Spec Comments: Order to be discontinued when PN is stoppedComments to Phleb: IF not already drawn [id number] 04:18:00* Test Item Value Reference Range Interpretation Comments MAGNESIUM (test code = MAG) 1.4 mg/dL 1.6-2.3 L Spec Comments: Order to be discontinued when PN is stoppedComments to Phleb: IF not already drawn todayBASIC METABOLIC [id number] 04:14:00* Test Item Value Reference Range Interpretation Comments SODIUM (test code = NA) mmol/L 137-145 POTASSIUM (test code = K) mmol/L 3.4-5.0 CHLORIDE (test code = CL) 114 mmol/L 98-107 H CARBON DIOXIDE (test code = CO2) mmol/L 22-30 GLUCOSE (test code = GLU) mg/dL 74-106 BLOOD UREA NITROGEN (test code = BUN) mg/dL 7-17 GLOMERULAR FILTRATION RATE (test code = GFR) >60 CREATININE (test code = CREAT) mg/dL 0.5-1.0 CALCIUM (test code = CA) mg/dL 8.4-10.2 Spec Comments: Order to be discontinued when PN is stoppedComments to Phleb: IF not already drawn [id number] 04:14:00* Test Item Value Reference Range Interpretation Comments PHOSPHOROUS (test code = PHOS) mg/dL 2.5-4.5 Spec Comments: Order to be discontinued when PN is stoppedComments to Phleb: IF not already drawn [id number] 04:14:00* Test Item Value Reference Range Interpretation Comments MAGNESIUM (test code = MAG) mg/dL 1.6-2.3 Spec Comments: Order to be discontinued when PN is stoppedComments to Phleb: IF not already drawn todayCB W/MANUAL [id number] 03:57:00* Test Item Value Reference Range Interpretation Comments WHITE BLOOD CELL (test code = WBC) 12.6 x10 3/uL 5.0-12.0 H RED BLOOD CELL (test code = RBC) 3.35 x10 6/uL 4.20-5.40 L HEMOGLOBIN (test code = HGB) 10.9 g/dL 12.0-16.0 L HEMATOCRIT (test code = HCT) 34.0 % 36.0-46.0 L MEAN CELL VOLUME (test code = MCV) 102 fL 81-99 H MEAN CELL HGB (test code = MCH) 32.5 pg 27-31 H MEAN CELL HGB CONCENTRATION (test code = MCHC) 32.1 g/dL 33-37 L RED CELL DISTRIBUTION WIDTH (test code = RDW) 17.8 % 11.5-15. 5 H PLATELET COUNT (test code = PLT) 49 x10 3/uL 130-400 L MEAN PLATELET VOLUME (test code = MPV) 13.2 fL 9.4-16.4 N TOTAL CELLS COUNTED (test code = TCC) #CELLS SEGMENTED NEUTROPHILS (test code = SEG) % 43-65 LYMPHOCYTE (test code = LYMPH) % 20.5-45.5 Spec Comments: Order to be discontinued when PN is stoppedComments to Phleb: IF not already drawn todayROBERTS CHAPEL W/MANUAL [id number] 03:57:00* Test Item Value Reference Range Interpretation Comments WHITE BLOOD CELL (test code = WBC) 12.6 x10 3/uL 5.0-12.0 H RED BLOOD CELL (test code = RBC) 3.35 x10 6/uL 4.20-5.40 L HEMOGLOBIN (test code = HGB) 10.9 g/dL 12.0-16.0 L HEMATOCRIT (test code = HCT) 34.0 % 36.0-46.0 L MEAN CELL VOLUME (test code = MCV) 102 fL 81-99 H MEAN CELL HGB (test code = MCH) 32.5 pg 27-31 H MEAN CELL HGB CONCENTRATION (test code = MCHC) 32.1 g/dL 33-37 L RED CELL DISTRIBUTION WIDTH (test code = RDW) 17.8 % 11.5-15. 5 H PLATELET COUNT (test code = PLT) 49 x10 3/uL 130-400 L MEAN PLATELET VOLUME (test code = MPV) 13.2 fL 9.4-16.4 N TOTAL CELLS COUNTED (test code = TCC) #CELLS SEGMENTED NEUTROPHILS (test code = SEG) % 43-65 LYMPHOCYTE (test code = LYMPH) % 20.5-45.5 Spec Comments: Order to be discontinued when PN is stoppedComments to Phleb: IF not already drawn todayCBC W/MANUAL [id number] 23:31:00* Test Item Value Reference Range Interpretation Comments WHITE BLOOD CELL (test code = WBC) 10.9 x10 3/uL 5.0-12.0 N RED BLOOD CELL (test code = RBC) 3.32 x10 6/uL 4.20-5.40 L HEMOGLOBIN (test code = HGB) 10.7 g/dL 12.0-16.0 L HEMATOCRIT (test code = HCT) 33.8 % 36.0-46.0 L MEAN CELL VOLUME (test code = MCV) 102 fL 81-99 H MEAN CELL HGB (test code = MCH) 32.2 pg 27-31 H MEAN CELL HGB CONCENTRATION (test code = MCHC) 31.7 g/dL 33-37 L RED CELL DISTRIBUTION WIDTH (test code = RDW) 17.6 % 11.5-15. 5 H PLATELET COUNT (test code = PLT) 47 x10 3/uL 130-400 L MEAN PLATELET VOLUME (test code = MPV) 12.9 fL 9.4-16.4 N TOTAL CELLS COUNTED (test code = TCC) 100 #CELLS SEGMENTED NEUTROPHILS (test code = SEG) 81 % 43-65 H BAND NEUTROPHIL (test code = BAND) 2 % 0-1 H LYMPHOCYTE (test code = LYMPH) 3 % 20.5-45.5 L ATYPICAL LYMPH (test code = ALYMPH) 4 % 0-1 H MONOCYTE (test code = MON) 6 % 5.5-11.7 N EOSINOPHIL (test code = EOS) 3 % 0.9-2.9 H METAMYELOCYTE (test code = META) 1 % 0-0 H MYELOCYTE (test code = MYELO) 1 % 0-0 H POLYCHROMASIA (test code = POLC) 1+ NONE SEEN A ANISOCYTOSIS (test code = ANISO) 1+ NONE SEEN A PLATELET ESTIMATE (test code = PLTEST) SIGNIF DECREASED ADEQUATE PLATELET MORPHOLOGY (test code = PLTMORPH) LARGE PLATELETS SEEN NOR MAL THROMBOPLASTIN TIME [id number] 23:16:00* Test Item Value Reference Range Interpretation Comments THROMBOPLASTIN TIME PARTIAL (test code = PTT) 47.4 SECONDS 23.4-37. 0 H Therapeutic Range for Heparin EFFECTIVE 04/01/13 Heparin IU/mL aPTT Seconds0.3 64.30.7 88.8 IS PATIENT ON ANTICOAGULANTS ? YESLIST ANTICOAGULANT/ANTI PLT MEDICATION: Sukumar flood ProtocolCBC W/MANUAL [id number] 23:10:00* Test Item Value Reference Range Interpretation Comments WHITE BLOOD CELL (test code = WBC) 10.9 x10 3/uL 5.0-12.0 N RED BLOOD CELL (test code = RBC) 3.32 x10 6/uL 4.20-5.40 L HEMOGLOBIN (test code = HGB) 10.7 g/dL 12.0-16.0 L HEMATOCRIT (test code = HCT) 33.8 % 36.0-46.0 L MEAN CELL VOLUME (test code = MCV) 102 fL 81-99 H MEAN CELL HGB (test code = MCH) 32.2 pg 27-31 H MEAN CELL HGB CONCENTRATION (test code = MCHC) 31.7 g/dL 33-37 L RED CELL DISTRIBUTION WIDTH (test code = RDW) 17.6 % 11.5-15. 5 H PLATELET COUNT (test code = PLT) 47 x10 3/uL 130-400 L MEAN PLATELET VOLUME (test code = MPV) 12.9 fL 9.4-16.4 N TOTAL CELLS COUNTED (test code = TCC) #CELLS SEGMENTED NEUTROPHILS (test code = SEG) % 43-65 LYMPHOCYTE (test code = LYMPH) % 20.5-45.5 CBC W/MANUAL [id number] 23:10:00* Test Item Value Reference Range Interpretation Comments WHITE BLOOD CELL (test code = WBC) 10.9 x10 3/uL 5.0-12.0 N RED BLOOD CELL (test code = RBC) 3.32 x10 6/uL 4.20-5.40 L HEMOGLOBIN (test code = HGB) 10.7 g/dL 12.0-16.0 L HEMATOCRIT (test code = HCT) 33.8 % 36.0-46.0 L MEAN CELL VOLUME (test code = MCV) 102 fL 81-99 H MEAN CELL HGB (test code = MCH) 32.2 pg 27-31 H MEAN CELL HGB CONCENTRATION (test code = MCHC) 31.7 g/dL 33-37 L RED CELL DISTRIBUTION WIDTH (test code = RDW) 17.6 % 11.5-15. 5 H PLATELET COUNT (test code = PLT) 47 x10 3/uL 130-400 L MEAN PLATELET VOLUME (test code = MPV) 12.9 fL 9.4-16.4 N TOTAL CELLS COUNTED (test code = TCC) #CELLS SEGMENTED NEUTROPHILS (test code = SEG) % 43-65 LYMPHOCYTE (test code = LYMPH) % 20.5-45.5 [id number] 20:19:00* Test Item Value Reference Range Interpretation Comments GLUBED (test code = GLUBED) 146 MG/DL 74-106 H THROMBOPLASTIN TIME [id number] 17:23:00* Test Item Value Reference Range Interpretation Comments THROMBOPLASTIN TIME PARTIAL (test code = PTT) 25.1 SECONDS 23.4-37. 0 N Therapeutic Range for Heparin EFFECTIVE 04/01/13 Heparin IU/mL aPTT Seconds0.3 64.30.7 88.8 IS PATIENT ON ANTICOAGULANTS ? YESLIST ANTICOAGULANT/ANTI PLT MEDICATION: Sukumar remigio ProtocolHEPARIN INDUCED [id number] 17:23:00* Test Item Value Reference Range Interpretation Comments HEPARIN INDUCED THROMBOCYTOPEN (test code = HIT (PF4 JAQUELINE)) NEGATIVE IS PATIENT ON ANTICOAGULANTS ? YESLIST ANTICOAGULANT/ANTI PLT MEDICATION: Sukumar remigio [id number] 17:14:00* Test Item Value Reference Range Interpretation Comments GLUBED (test code = GLUBED) 113 MG/DL 74-106 H COLON SEGMENT RESEC. NOT [id number] 17:10:00 RUN DATE: 12/12/18 [facility] PAGE 1 RUN TIME: 1710 Specimen Inqui ry RUN USER: INTERFACE PATIENT: LEONOR VELIZ ACCT #: C [id number] LOC: [facility] U #: [id number] AGE/SX: 68/F ROOM: [place] [id number] RE12/09/18REG DR: Kofi Bean Ba, MD : 49 BED: A DIS: STATUS: ADM IN TLOC: SPEC #: [id number] RECD: 12/10/18 STATUS: [facility] #: [id number] DOREEN: 12/09/18 [facility] DR: Don Molina MD ENTERED: 12/10/18 SP TYPE: COLON RES OTHR DR: Vani Reese Hai Phuc MD Garay, Alian Garay MDORDERED: PATHGM5, # OF BLOCKS/8, # OF SLIDES/8 TISSUES: A. COLON, NOS - LEFT COLON AND SPLENIC FLEXURE CLINICAL HISTORY Acute ischemic gangrenous colit is, severe sepsis, generalized peritonitis; open left hemicolectomy with skin- level transverse colostomy FINAL MICROSCOPIC DIAGNOSIS LEFT COLON, LEFT HEM ICOLECTOMY: MULTIFOCAL MUCOSAL INFARCT AND PSEUDOMEMBRANE CONSISTENT WITH ISCHEMIC COLITIS. FOCAL FULL THICKNESS GANGRENE OF THE INTESTINAL WALL. DISTAL RESECTION MARGIN INVOLVED BY MUCOSAL INFARCT. CPT 21867 GROSS DESCRIPTION Received fresh labeled with the patient's name, medical record number, and "left colon and splenic flexure" is a 38.0 cm in length seg ment of colon ranging in circumference from 4.0 cm to 8.0 cm. The serosal surf joaquin is purple-arboleda to yellow-green, dusky, focally ragged, exhibits fibrous adh esions and attached pericolonic adipose tissue measuring 5.5 cm in maximum thi ckness which is partially covered by yellow-green exudate. The colon is opened to reveal pink-arboleda to yellow-green, dusky, edematous mucosa throughout which is covered by yellow-green exudate. No discrete masses or perforations are el ntified. The wall is markedly thinned in some areas, measuring 0.2 cm in maxim um thickness. Also received in the specimen container is a 2.2 x 1.5 cm pa le arboleda, wrinkled circular portion of skin excised to a depth of 1.0 cm. Sectio neptali reveals no discrete masses. Section code: A1, parallel proximal re section margin; A2, parallel distal resection margin; A3-A7, financial foundations representative se ctions of colon; A8, financial foundations representative sections of skin. VT/DB/jv CONTINUED ON NEXT PAGE RUN DATE: [facility] PAGE 2 RUN TIME: 1710 Specimen Inquiry RUN US ER: INTERFACE -------- ----SPEC #: [id number] PATIENT: LEONOR VELIZ #[id number] (Continued) Signed SIGNATURE ON Rodolfo Ellison MD 12/12/18 1710 END OF REPORT [id number] 16:01:00* Test Item Value Reference Range Interpretation Comments POTASSIUM (test code = K) 3.8 mmol/L 3.4-5.0 N [id number] 12:14:00* Test Item Value Reference Range Interpretation Comments GLUBED (test code = GLUBED) 106 MG/DL 74-106 N [id number] 12:05:00* Test Item Value Reference Range Interpretation Comments PHOSPHOROUS (test code = PHOS) 3.2 mg/dL 2.5-4.5 N [id number] 10:15:00* Test Item Value Reference Range Interpretation Comments POTASSIUM (test code = K) 3.2 mmol/L 3.4-5.0 L [id number] 10:15:00* Test Item Value Reference Range Interpretation Comments MAGNESIUM (test code = MAG) mg/dL 1.6-2.3 [id number] 10:15:00* Test Item Value Reference Range Interpretation Comments POTASSIUM (test code = K) 3.2 mmol/L 3.4-5.0 L [id number] 10:15:00* Test Item Value Reference Range Interpretation Comments MAGNESIUM (test code = MAG) 2.1 mg/dL 1.6-2.3 N [id number] 09:29:00* Test Item Value Reference Range Interpretation Comments GLUBED (test code = GLUBED) 122 MG/DL 74-106 H CBC W/MANUAL [id number] 04:27:00* Test Item Value Reference Range Interpretation Comments WHITE BLOOD CELL (test code = WBC) 11.0 x10 3/uL 5.0-12.0 N RED BLOOD CELL (test code = RBC) 3.40 x10 6/uL 4.20-5.40 L HEMOGLOBIN (test code = HGB) 11.1 g/dL 12.0-16.0 L HEMATOCRIT (test code = HCT) 34.0 % 36.0-46.0 L MEAN CELL VOLUME (test code = MCV) 100 fL 81-99 H MEAN CELL HGB (test code = MCH) 32.6 pg 27-31 H MEAN CELL HGB CONCENTRATION (test code = MCHC) 32.6 g/dL 33-37 L RED CELL DISTRIBUTION WIDTH (test code = RDW) 17.5 % 11.5-15. 5 H PLATELET COUNT (test code = PLT) 48 x10 3/uL 130-400 L MEAN PLATELET VOLUME (test code = MPV) 10.2 fL 9.4-16.4 N TOTAL CELLS COUNTED (test code = TCC) 100 #CELLS SEGMENTED NEUTROPHILS (test code = SEG) 85 % 43-65 H BAND NEUTROPHIL (test code = BAND) 6 % 0-1 H LYMPHOCYTE (test code = LYMPH) 2 % 20.5-45.5 L ATYPICAL LYMPH (test code = ALYMPH) 2 % 0-1 H MONOCYTE (test code = MON) 5 % 5.5-11.7 L EOSINOPHIL (test code = EOS) 1 % 0.9-2.9 N NUCLEATED RED BLOOD CELL (test code = NRBC) 0.8 /100WBC 0-0 H ANISOCYTOSIS (test code = ANISO) 1+ NONE SEEN A TEAR DROP CELLS (test code = TEAR) 1+ NONE SEEN A PLATELET ESTIMATE (test code = PLTEST) SIGNIF DECREASED ADEQUATE PLATELET MORPHOLOGY (test code = PLTMORPH) NORMAL NORMAL Spec Comments: Order to be discontinued when PN is stoppedComments to Phleb: IF not already drawn todayBASE[facility] [id number] 04:23:00* Test Item Value Reference Range Interpretation Comments SODIUM (test code = NA) 140 mmol/L 137-145 N POTASSIUM (test code = K) 3.4 mmol/L 3.4-5.0 N CHLORIDE (test code = CL) 113 mmol/L 98-107 H CARBON DIOXIDE (test code = CO2) 23 mmol/L 22-30 N GLUCOSE (test code = GLU) 163 mg/dL 74-106 H BLOOD UREA NITROGEN (test code = BUN) 31 mg/dL 7-17 H GLOMERULAR FILTRATION RATE (test code = GFR) 58 >60 L The estimated glomerular filtration rate is computed usingpatient race, age (>18), sex, and serum creatinine. If anyof the needed data elements are missing the Laboratory cannot compute an estimation of the glomerular filtration rate. CREATININE (test code = CREAT) 1.0 mg/dL 0.5-1.0 N CALCIUM (test code = CA) 7.9 mg/dL 8.4-10.2 L Spec Comments: Order to be discontinued when PN is stoppedComments to Phleb: IF not already drawn todaySpec Comments: [id number] Comments: DAY 3PHOSPHOROUS 2018-12-12 04:23:00* Test Item Value Reference Range Interpretation Comments PHOSPHOROUS (test code = PHOS) <1.0 mg/dL 2.5-4.5 LL Critical Value reported [id number] READ BACK AND VERIFIEDby C.LAB.MI, on 12/12/18, @ 4775. Spec Comments: Order to be discontinued when PN is stoppedComments to Phleb: IF not already drawn todaySpec Comments: [id number] Comments: DAY 3TRIGLYCERIDES 2018-12-12 04:23:00* Test Item Value Reference Range Interpretation Comments TRIGLYCERIDES (test code = TRIG) 183 mg/dL TRIGLYCERIDES REFERENCE RANGE:Normal: <150 mg/dLBorderline High: 150-199 mg/dLHigh: 200-499 mg/dLVery High: >=500 mg/dL Spec Comments: Order to be discontinued when PN is stoppedComments to Phleb: IF not already drawn todaySpec Comments: [id number] Comments: DAY 3MAGNESIUM 2018-12-12 04:23:00* Test Item Value Reference Range Interpretation Comments MAGNESIUM (test code = MAG) 1.5 mg/dL 1.6-2.3 L Spec Comments: Order to be discontinued when PN is stoppedComments to Phleb: IF not already drawn todaySpec Comments: [id number] Comments: DAY 3PREALBUMIN 2018-12-12 04:23:00* Test Item Value Reference Range Interpretation Comments PREALBUMIN (test code = PREALB) 19.30 mg/dL 17.6-36.0 N Spec Comments: Order to be discontinued when PN is stoppedComments to Phleb: IF not already drawn todaySpec Comments: [id number] Comments: DAY 3PROTHROMBIN TIME 2018-12-12 04:19:00* Test Item Value Reference Range Interpretation Comments PROTHROMBIN TIME PATIENT (test code = PTP) 11.2 SECONDS 9.2-12.1 N INTERNATIONAL NORMAL RATIO (test code = INR) 1.0 The INR is to be used only for monitoring ORAL ANTICOAGULANTTHERAPY. Indication INR Value1. Prophylaxis/treatment of: Venous Thrombosis, Pulmonary Embolism 2.0 - 3.02. Prevention of systemic embolism from: Tissue heart valves 2.0 - 3.0 Acute myocardial infarction (to present systemic embolism)* 2.0 - 3.0 Valvular heart disease 2.0 - 3.0 Atrial fibrillation 2.0 - 3.03. Mechanical prosthetic valves (high risk) 2.5 - 3.5 * If oral anticoagulant therapy is elected to preventrecurrent myocardial infarction, an INR of 2.5-3.5 isrecommended, consistent with Food and Drug Administrationrecommendations. IS PATIENT ON ANTICOAGULANTS ? YESLIST ANTICOAGULANT/ANTI PLT MEDICATION: Sukumar flood ProtocolTHROMBOPLASTIN TIME [id number] 04:19:00* Test Item Value Reference Range Interpretation Comments THROMBOPLASTIN TIME PARTIAL (test code = PTT) 56.7 SECONDS 23.4-37. 0 H Therapeutic Range for Heparin EFFECTIVE 04/01/13 Heparin IU/mL aPTT Seconds0.3 64.30.7 88.8 IS PATIENT ON ANTICOAGULANTS ? YESLIST ANTICOAGULANT/ANTI PLT MEDICATION: Sukumar flood ProtocolBASIC METABOLIC [id number] 04:16:00* Test Item Value Reference Range Interpretation Comments SODIUM (test code = NA) 140 mmol/L 137-145 N POTASSIUM (test code = K) 3.4 mmol/L 3.4-5.0 N CHLORIDE (test code = CL) 113 mmol/L 98-107 H CARBON DIOXIDE (test code = CO2) 23 mmol/L 22-30 N GLUCOSE (test code = GLU) 163 mg/dL 74-106 H BLOOD UREA NITROGEN (test code = BUN) 31 mg/dL 7-17 H GLOMERULAR FILTRATION RATE (test code = GFR) 58 >60 L The estimated glomerular filtration rate is computed usingpatient race, age (>18), sex, and serum creatinine. If anyof the needed data elements are missing the Laboratory cannot compute an estimation of the glomerular filtration rate. CREATININE (test code = CREAT) 1.0 mg/dL 0.5-1.0 N CALCIUM (test code = CA) 7.9 mg/dL 8.4-10.2 L Spec Comments: Order to be discontinued when PN is stoppedComments to Phleb: IF not already drawn todaySpec Comments: [id number] Comments: DAY 3PHOSPHOROUS 2018-12-12 04:16:00* Test Item Value Reference Range Interpretation Comments PHOSPHOROUS (test code = PHOS) <1.0 mg/dL 2.5-4.5 LL Critical Value reported [id number] READ BACK AND VERIFIEDby [email or web address].MI, on 12/12/18, @ 8704. Spec Comments: Order to be discontinued when PN is stoppedComments to Phleb: IF not already drawn todaySpec Comments: [id number] Comments: DAY 3TRIGLYCERIDES 2018-12-12 04:16:00* Test Item Value Reference Range Interpretation Comments TRIGLYCERIDES (test code = TRIG) 183 mg/dL TRIGLYCERIDES REFERENCE RANGE:Normal: <150 mg/dLBorderline High: 150-199 mg/dLHigh: 200-499 mg/dLVery High: >=500 mg/dL Spec Comments: Order to be discontinued when PN is stoppedComments to Phleb: IF not already drawn todaySpec Comments: [id number] Comments: DAY 3MAGNESIUM 2018-12-12 04:16:00* Test Item Value Reference Range Interpretation Comments MAGNESIUM (test code = MAG) 1.5 mg/dL 1.6-2.3 L Spec Comments: Order to be discontinued when PN is stoppedComments to Phleb: IF not already drawn todaySpec Comments: [id number] Comments: DAY 3PREALBUMIN 2018-12-12 04:16:00* Test Item Value Reference Range Interpretation Comments PREALBUMIN (test code = PREALB) mg/dL 17.6-36.0 Spec Comments: Order to be discontinued when PN is stoppedComments to Phleb: IF not already drawn todaySpec Comments: [id number] Comments: DAY 3CBC W/MANUAL DIFF 2018-12-12 04:05:00* Test Item Value Reference Range Interpretation Comments WHITE BLOOD CELL (test code = WBC) 11.0 x10 3/uL 5.0-12.0 N RED BLOOD CELL (test code = RBC) 3.40 x10 6/uL 4.20-5.40 L HEMOGLOBIN (test code = HGB) 11.1 g/dL 12.0-16.0 L HEMATOCRIT (test code = HCT) 34.0 % 36.0-46.0 L MEAN CELL VOLUME (test code = MCV) 100 fL 81-99 H MEAN CELL HGB (test code = MCH) 32.6 pg 27-31 H MEAN CELL HGB CONCENTRATION (test code = MCHC) 32.6 g/dL 33-37 L RED CELL DISTRIBUTION WIDTH (test code = RDW) 17.5 % 11.5-15. 5 H PLATELET COUNT (test code = PLT) 48 x10 3/uL 130-400 L MEAN PLATELET VOLUME (test code = MPV) 10.2 fL 9.4-16.4 N TOTAL CELLS COUNTED (test code = TCC) #CELLS SEGMENTED NEUTROPHILS (test code = SEG) % 43-65 LYMPHOCYTE (test code = LYMPH) % 20.5-45.5 Spec Comments: Order to be discontinued when PN is stoppedComments to Phleb: IF not already drawn todayCBC W/MANUAL [id number] 04:05:00* Test Item Value Reference Range Interpretation Comments WHITE BLOOD CELL (test code = WBC) 11.0 x10 3/uL 5.0-12.0 N RED BLOOD CELL (test code = RBC) 3.40 x10 6/uL 4.20-5.40 L HEMOGLOBIN (test code = HGB) 11.1 g/dL 12.0-16.0 L HEMATOCRIT (test code = HCT) 34.0 % 36.0-46.0 L MEAN CELL VOLUME (test code = MCV) 100 fL 81-99 H MEAN CELL HGB (test code = MCH) 32.6 pg 27-31 H MEAN CELL HGB CONCENTRATION (test code = MCHC) 32.6 g/dL 33-37 L RED CELL DISTRIBUTION WIDTH (test code = RDW) 17.5 % 11.5-15. 5 H PLATELET COUNT (test code = PLT) 48 x10 3/uL 130-400 L MEAN PLATELET VOLUME (test code = MPV) 10.2 fL 9.4-16.4 N TOTAL CELLS COUNTED (test code = TCC) #CELLS SEGMENTED NEUTROPHILS (test code = SEG) % 43-65 LYMPHOCYTE (test code = LYMPH) % 20.5-45.5 Spec Comments: Order to be discontinued when PN is stoppedComments to Phleb: IF not already drawn todayTHROMBOPLASTIN TIME [id number] 23:49:00* Test Item Value Reference Range Interpretation Comments THROMBOPLASTIN TIME PARTIAL (test code = PTT) 55.9 SECONDS 23.4-37. 0 H Therapeutic Range for Heparin EFFECTIVE 04/01/13 Heparin IU/mL aPTT Seconds0.3 64.30.7 88.8 IS PATIENT ON ANTICOAGULANTS ? YESLIST ANTICOAGULANT/ANTI PLT MEDICATION: Sukumar cortezn [id number] 23:40:00* Test Item Value Reference Range Interpretation Comments GLUBED (test code = GLUBED) 138 MG/DL 74-106 H [id number] 21:37:00* Test Item Value Reference Range Interpretation Comments POTASSIUM (test code = K) 3.3 mmol/L 3.4-5.0 L THROMBOPLASTIN TIME [id number] 17:55:00* Test Item Value Reference Range Interpretation Comments THROMBOPLASTIN TIME PARTIAL (test code = PTT) 47.2 SECONDS 23.4-37. 0 H Therapeutic Range for Heparin EFFECTIVE 04/01/13 Heparin IU/mL aPTT Seconds0.3 64.30.7 88.8 IS PATIENT ON ANTICOAGULANTS ? YESLIST ANTICOAGULANT/ANTI PLT MEDICATION: Sukumar cortezn ProtocolUR SODIUM [id number] 16:16:00* Test Item Value Reference Range Interpretation Comments UR SODIUM RANDOM (test code = KEELY) 122 mmol/L 30-90 H 24hr: 40-220 mmol/dayRandom: 30-90 mmol/L SEND TO [facility] POTASSIUM [id number] 16:16:00* Test Item Value Reference Range Interpretation Comments UR POTASSIUM RANDOM (test code = KU) 7 mmol/L 24hr: 25.0-125 mmol/day SEND TO [facility] CHLORIDE [id number] 16:16:00* Test Item Value Reference Range Interpretation Comments UR CHLORIDE RANDOM (test code = CLU) 102 MMOL/L ~~~~~~~~~~~~~~~~~~~~~~~~~~~~~~~~~~~~~~~~~~~~~~~~~~~~~~~~~~~This test has been performed on a fluid type that has nopublished normal reference ranges. Please evaluate theseresults on an individual basis. ~~~~~~~~~~~~~~~~~~~~~~~~~~~~~~~~~~~~~~~~~~~~~~~~~~~~~~~~~~~ SEND TO [facility] MICROALBUMIN/CREAT [id number] 16:16:00* Test Item Value Reference Range Interpretation Comments MICROALBUMIN QUANT (test code = ALBU) 4.5 mg/dL 0-1.6 H UR CREATININE RANDOM (test code = CREATU) 12.2 mg/dL ~~~~~~~~~~~~~~~~~~~~~~~~~~~~~~~~~~~~~~~~~~~~~~~~~~~~~~~~~~~This test has been performed on a fluid type that has nopublished normal reference ranges. Please evaluate theseresults on an individual basis. ~~~~~~~~~~~~~~~~~~~~~~~~~~~~~~~~~~~~~~~~~~~~~~~~~~~~~~~~~~~ UR MICROALB/CREAT RATIO (test code = MICALB:CRE) 368.0 mg/g cre 0.0 -30.0 H [facility] OSMOLALITY [id number] 16:16:00* Test Item Value Reference Range Interpretation Comments UR OSMOLALITY RANDOM (test code = OSMOU) 320 mOsm/kg 300-1200 N SEND TO [id number] 14:33:00* Test Item Value Reference Range Interpretation Comments POTASSIUM (test code = K) 3.1 mmol/L 3.4-5.0 L [id number] 14:33:00* Test Item Value Reference Range Interpretation Comments MAGNESIUM (test code = MAG) mg/dL 1.6-2.3 [id number] 14:33:00* Test Item Value Reference Range Interpretation Comments POTASSIUM (test code = K) 3.1 mmol/L 3.4-5.0 L [id number] 14:33:00* Test Item Value Reference Range Interpretation Comments MAGNESIUM (test code = MAG) 2.0 mg/dL 1.6-2.3 N PROTHROMBIN [id number] 12:07:00* Test Item Value Reference Range Interpretation Comments PROTHROMBIN TIME PATIENT (test code = PTP) 9.9 SECONDS 9.2-12.1 N INTERNATIONAL NORMAL RATIO (test code = INR) 0.9 The INR is to be used only for monitoring ORAL ANTICOAGULANTTHERAPY. Indication INR Value1. Prophylaxis/treatment of: Venous Thrombosis, Pulmonary Embolism 2.0 - 3.02. Prevention of systemic embolism from: Tissue heart valves 2.0 - 3.0 Acute myocardial infarction (to present systemic embolism)* 2.0 - 3.0 Valvular heart disease 2.0 - 3.0 Atrial fibrillation 2.0 - 3.03. Mechanical prosthetic valves (high risk) 2.5 - 3.5 * If oral anticoagulant therapy is elected to preventrecurrent myocardial infarction, an INR of 2.5-3.5 isrecommended, consistent with Food and Drug Administrationrecommendations. IS PATIENT ON ANTICOAGULANTS ? YESLIST ANTICOAGULANT/ANTI PLT MEDICATION: ST ARTING HEPARIN PROTOCOLTHROMBOPLASTIN TIME [id number] 12:07:00* Test Item Value Reference Range Interpretation Comments THROMBOPLASTIN TIME PARTIAL (test code = PTT) 23.8 SECONDS 23.4-37. 0 N Therapeutic Range for Heparin EFFECTIVE 04/01/13 Heparin IU/mL aPTT Seconds0.3 64.30.7 88.8 IS PATIENT ON ANTICOAGULANTS ? YESLIST ANTICOAGULANT/ANTI PLT MEDICATION: THAOING HEPARIN [id number] 10:38:00* Test Item Value Reference Range Interpretation Comments GLUBED (test code = GLUBED) 152 MG/DL 74-106 H [id number] 10:38:00* Test Item Value Reference Range Interpretation Comments GLUBED (test code = GLUBED) 171 MG/DL 74-106 H POC ARTERIAL BLOOD [id number] 10:28:00* Test Item Value Reference Range Interpretation Comments POC ARTERIAL BLOOD GAS PH (test code = POCPHA) 7.482 7.35-7. 45 H POC ARTERIAL BLOOD GAS PCO2 (test code = FVGPGI1Q) 27.0 mmHg 35- 45 LL POC ARTERIAL BLOOD GAS PO2 (test code = JISJJ8P) 168 mmHg 80-90 H POC HCO3 ARTERIAL (test code = REOFRX7O) 20.2 mmol/L 22.0-24.0 L POC BASE EXCESS (test code = POCBEA) -3 mmol/L -2.0-2.0 L POC O2 SATURATION (test code = POCO2S) 100 % 95-98 H ARTERIAL FIO2 (test code = FIO2A) 40 % ABG DELIVERY (test code = KEVAN) Vent ABG VENT MODE (test code = MODEA) Cpap, ps ABG PATIENT RESP RATE (test code = RRPATA) 14 /MIN 12-20 N ABG PEEP (test code = PEEP) 5 cmH2O ABG PRESSURE SUPPORT (test code = PSABG) [address] NOTIFIED ABG SITE (test code = SITEA) Isabel IBANEZ TEST (test code = ALLENDonna) Pass - SP FLUORO [id number] 09:05:00 FAX: Kofi Briones [phone] [place]: ADAN St: ADM Name: LEONOR JOHNSON [facility] : [birth year] Age/S: 68/F [address] Unit #: [id number] Loc: C.ICU0 [place] [address] Phys: Baljinder Pfeiffer MD Acct: [id number] Dis Date: Status: ADM IN PHONE #: Exam Date: 12/10/2018 1259 FAX #: Reason: EXAMS: CPT CODE: [id number] SP FLUORO NDL [id number] PROCEDURE: - SP FLUORO NDL 1. Ultrasound guidance cannulation of the common femoral vein. Performance and interpretation. 2. Right ilio-cavogram. 3. IVC filter placement, Bard S[place], Retrieval time up to 67 days CPT code: 93582 INDICATION: DVT LOCATION CO DE: C3 COMPARISON: None TECHNIQUE: Risk, benefit s, procedure were thoroughly discussed with the patient and family. phone consent were obtained. Patient was transferred from room to the angiography suite where patient was placed in a supine positi on. Timeout for patient's safety was performed. The overlying skin of th e AV graft was prepped and draped with maximal sterile barrier technique. Under ultrasound guidance the common femoral vein was cannulated without placement of a 0.018 inch guidewire. The tract was further dilated follow ed by placement of a 0.035 guidewire. A 6-Syriac sheath was placed over t he guidewire and extending to the level of L4. Initial ileal cavogram was performed via hand injection using approximately 20 mL of full stre ngth contrast. The sheath was advanced to the infrarenal level. I VC filter was deployed uneventfully. The sheath was then advanced to the level of L4 and repeated inferior venacavogram was done. Vas cular sheath was removed and point pressure was applied to achieve hemosta sis. Fluoroscopic time: One minutes Total number im ages obtain, 4 Findings: PAGE 1 Signed Report (CONTINUED) FAX: Kofi Briones [phone] [place]: St: ADM Name: LEONOR VELIZ [facility] [place] : 1950 Age/S: 68/F [address] Unit #: [id number] Loc: C.ICU0 [place] [address] Phys: Baljinder Pfeiffer MD Acct: [id number] Dis Date: Status: ADM IN PHONE #: Exam Date: 12/10/2018 1253 FAX #: Reason: EXAMS: CPT CODE: [id number] SP FLUORO NDL [id number] <Continued> No evidence of filling defect within the confluence of the common iliac vein and inferior vena cava. Satisfactory placement of IVC filter. Impression: 1. Status post IVC filter placement. at 0905 Reported and signed by: Baljinder Pfeiffer M.D. CC: Kofi Bean MD Technologist: JANI HAWK Date/Time/By: 12/11/2018 (0905) : By: Vinny PAGE 2 Signed Report FAX: Kofi Briones [phone] [place]: St: ADM Name: LEONOR VELIZ Shelli [facility] [place] : 1950 Age/S: 68/F [address] Unit #: [id number] Loc: C.ICU0 [place] [address] Phys: Baljinder Pfeiffer MD Acct: [id number] Dis Date: Status: ADM IN PHONE #: Exam Date: 12/10/2018 1253 FAX #: Reason: EXAMS: CPT CODE: [id number] SP FLUORO NDL 98860 <Continued> Orig Print D/T: S: 12/11/2018 (0908) PAGE 3 Signed Report UR SODIUM [id number] 05:36:00* Test Item Value Reference Range Interpretation Comments UR SODIUM RANDOM (test code = KEELY) 122 mmol/L 30-90 H 24hr: 40-220 mmol/dayRandom: 30-90 mmol/L UR POTASSIUM [id number] 05:36:00* Test Item Value Reference Range Interpretation Comments UR POTASSIUM RANDOM (test code = KU) 7 mmol/L 24hr: 25.0-125 mmol/day UR CHLORIDE [id number] 05:36:00* Test Item Value Reference Range Interpretation Comments UR CHLORIDE RANDOM (test code = CLU) MMOL/L UR MICROALBUMIN/CREAT [id number] 05:36:00* Test Item Value Reference Range Interpretation Comments MICROALBUMIN QUANT (test code = ALBU) 4.5 mg/dL 0-1.6 H UR CREATININE RANDOM (test code = CREATU) 12.2 mg/dL ~~~~~~~~~~~~~~~~~~~~~~~~~~~~~~~~~~~~~~~~~~~~~~~~~~~~~~~~~~~This test has been performed on a fluid type that has nopublished normal reference ranges. Please evaluate theseresults on an individual basis. ~~~~~~~~~~~~~~~~~~~~~~~~~~~~~~~~~~~~~~~~~~~~~~~~~~~~~~~~~~~ UR MICROALB/CREAT RATIO (test code = MICALB:CRE) 368.0 mg/g cre 0.0 -30.0 H UR OSMOLALITY [id number] 05:36:00* Test Item Value Reference Range Interpretation Comments UR OSMOLALITY RANDOM (test code = OSMOU) 320 mOsm/kg 300-1200 N POC ARTERIAL BLOOD [id number] 05:08:00* Test Item Value Reference Range Interpretation Comments POC ARTERIAL BLOOD GAS PH (test code = POCPHA) 7.451 7.35-7. 45 H POC ARTERIAL BLOOD GAS PCO2 (test code = TVDRDX9L) 29.0 mmHg 35- 45 LL POC ARTERIAL BLOOD GAS PO2 (test code = WSTWE1X) 54 mmHg 80-90 L POC HCO3 ARTERIAL (test code = GTXYIF0C) 20.2 mmol/L 22.0-24.0 L POC BASE EXCESS (test code = POCBEA) -4 mmol/L -2.0-2.0 L POC O2 SATURATION (test code = POCO2S) 90 % 95-98 L ARTERIAL FIO2 (test code = FIO2A) 60 % ABG DELIVERY (test code = KEVAN) Vent ABG VENT MODE (test code = MODEA) AC Volume ABG PATIENT RESP RATE (test code = RRPATA) 22 /MIN 12-20 H ABG PEEP (test code = PEEP) 5 cmH2O ABG SITE (test code = SITEA) R Rad ALLENS TEST (test code = ALLENS) N/A UR SODIUM [id number] 04:54:00* Test Item Value Reference Range Interpretation Comments UR SODIUM RANDOM (test code = KEELY) 122 mmol/L 30-90 H 24hr: 40-220 mmol/dayRandom: 30-90 mmol/L UR POTASSIUM [id number] 04:54:00* Test Item Value Reference Range Interpretation Comments UR POTASSIUM RANDOM (test code = KU) 7 mmol/L 24hr: 25.0-125 mmol/day UR CHLORIDE [id number] 04:54:00* Test Item Value Reference Range Interpretation Comments UR CHLORIDE RANDOM (test code = CLU) MMOL/L UR MICROALBUMIN/CREAT [id number] 04:54:00* Test Item Value Reference Range Interpretation Comments MICROALBUMIN QUANT (test code = ALBU) 4.5 mg/dL 0-1.6 H UR CREATININE RANDOM (test code = CREATU) 12.2 mg/dL ~~~~~~~~~~~~~~~~~~~~~~~~~~~~~~~~~~~~~~~~~~~~~~~~~~~~~~~~~~~This test has been performed on a fluid type that has nopublished normal reference ranges. Please evaluate theseresults on an individual basis. ~~~~~~~~~~~~~~~~~~~~~~~~~~~~~~~~~~~~~~~~~~~~~~~~~~~~~~~~~~~ UR MICROALB/CREAT RATIO (test code = MICALB:CRE) 368.0 mg/g cre 0.0 -30.0 H UR OSMOLALITY [id number] 04:54:00* Test Item Value Reference Range Interpretation Comments UR OSMOLALITY RANDOM (test code = OSMOU) mOsm/kg 300-1200 - XR CHEST 1 [id number] 04:14:00 FAX: Alfred Martinez [phone] [place]: St: ADM FAX: Kofi Briones [phone] Name: LEONOR VELIZ [facility] : 1950 Age/S: 68/F [address] Unit #: [id number] Loc: C.ICU0 [place] [address] Phys: Alfred Ragsdale RED CAP Acct: [id number] Dis Date: Status: ADM IN PHONE #: [phone] Exam Date: 12/11/2018 0409 FAX #: [phone] Reason: vent EXAMS: CPT CODE: [id number] XR CHEST 1 V 68922 Exam: Chest portable erect Location: F6 History: vent Comparison: 12/10/2018 Findings: No change has occurred in the aeration of the lungs. The heart size is unchanged. The mediastinal silhouette is unremarkable. The bony thorax is intact. Lines and tubes remain in place. Impression: Stable chest/no change. at 0194 Reported and signed by: Ismael Contreras CC: Alfred Ragsdale RED CAP; Kofi Bean MD Technologist: RT Portillo (Isabel) Trnscrd Date/Time/By: 12/11/2018 (8483) : By: Genia PAGE 1 Signed Report FAX: Alfred Martinez [phone] [place]: St: ADM FAX: Kofi Briones [phone] Name: DK VELIZBIJosephine [facility] [place] : 1950 Age/S: 68/F [address] Unit #: [id number] Loc: C.ICU0 [place] [address] Phys: Alfred Ragsdale RED CAP Acct: [id number] Dis Date: Status: ADM IN PHONE #: [phone] Exam Date: 12/11/2018 0409 FAX #: [phone] Reason: vent EXAMS: CPT CODE: [id number] XR CHEST 1 V 52968 < Continued> Orig Print D/T: S: 12/11/2018 (0418) PAGE 2 Signed Report BASIC METABOLIC [id number] 04:02:00* Test Item Value Reference Range Interpretation Comments SODIUM (test code = NA) 143 mmol/L 137-145 N POTASSIUM (test code = K) 3.2 mmol/L 3.4-5.0 L CHLORIDE (test code = CL) 114 mmol/L 98-107 H CARBON DIOXIDE (test code = CO2) 23 mmol/L 22-30 N GLUCOSE (test code = GLU) 167 mg/dL 74-106 H BLOOD UREA NITROGEN (test code = BUN) 33 mg/dL 7-17 H GLOMERULAR FILTRATION RATE (test code = GFR) 40 >60 L The estimated glomerular filtration rate is computed usingpatient race, age (>18), sex, and serum creatinine. If anyof the needed data elements are missing the Laboratory cannot compute an estimation of the glomerular filtration rate. CREATININE (test code = CREAT) 1.4 mg/dL 0.5-1.0 H CALCIUM (test code = CA) 6.8 mg/dL 8.4-10.2 L Spec Comments: Order to be discontinued when PN is stoppedComments to Phleb: IF not already drawn [id number] 04:02:00* Test Item Value Reference Range Interpretation Comments PHOSPHOROUS (test code = PHOS) 3.4 mg/dL 2.5-4.5 N Spec Comments: Order to be discontinued when PN is stoppedComments to Phleb: IF not already drawn [id number] 04:02:00* Test Item Value Reference Range Interpretation Comments MAGNESIUM (test code = MAG) 1.8 mg/dL 1.6-2.3 N Spec Comments: Order to be discontinued when PN is stoppedComments to Phleb: IF not already drawn todayCBC W/AUTO [id number] 03:55:00* Test Item Value Reference Range Interpretation Comments WHITE BLOOD CELL (test code = WBC) 16.4 x10 3/uL 5.0-12.0 H RED BLOOD CELL (test code = RBC) 3.31 x10 6/uL 4.20-5.40 L HEMOGLOBIN (test code = HGB) 10.9 g/dL 12.0-16.0 L HEMATOCRIT (test code = HCT) 32.9 % 36.0-46.0 L MEAN CELL VOLUME (test code = MCV) 99 fL 81-99 N MEAN CELL HGB (test code = MCH) 32.9 pg 27-31 H MEAN CELL HGB CONCENTRATION (test code = MCHC) 33.1 g/dL 33-37 N RED CELL DISTRIBUTION WIDTH (test code = RDW) 17.8 % 11.5-15. 5 H PLATELET COUNT (test code = PLT) 84 x10 3/uL 130-400 L MEAN PLATELET VOLUME (test code = MPV) 10.4 fL 9.4-16.4 N NEUTROPHIL % (test code = NT%) 93.5 % 43-65 H IMMATURE GRANULOCYTE % (test code = IG%) 1.0 % 0.0-2.0 N LYMPHOCYTE % (test code = LY%) 1.6 % 20.5-45.5 L MONOCYTE % (test code = MO%) 3.5 % 5.5-11.7 L EOSINOPHIL % (test code = EO%) 0.0 % 0.9-2.9 L BASOPHIL % (test code = BA%) 0.4 % 0.2-1.0 N NUCLEATED RBC % (test code = NRBC%) 0.4 % 0-1.0 N NEUTROPHIL # (test code = NT#) 15.35 x10 3/uL 2.2-4.8 H IMMATURE GRANULOCYTE # (test code = IG#) 0.16 x10 3/uL 0-0.03 H LYMPHOCYTE # (test code = LY#) 0.26 x10 3/uL 1.3-2.9 L MONOCYTE # (test code = MO#) 0.57 x10 3/uL 0.3-0.8 N EOSINOPHIL # (test code = EO#) 0.00 x10 3/uL 0.0-0.2 N BASOPHIL # (test code = BA#) 0.06 x10 3/uL 0.0-0.1 N Spec Comments: Order to be discontinued when PN is stoppedComments to Phleb: IF not already drawn [id number] 00:15:00* Test Item Value Reference Range Interpretation Comments GLUBED (test code = GLUBED) 157 MG/DL 74-106 H [id number] 20:23:00* Test Item Value Reference Range Interpretation Comments GLUBED (test code = GLUBED) 106 MG/DL 74-106 N POC ARTERIAL BLOOD [id number] 16:14:00* Test Item Value Reference Range Interpretation Comments POC ARTERIAL BLOOD GAS PH (test code = POCPHA) 7.504 7.35-7. 45 HH POC ARTERIAL BLOOD GAS PCO2 (test code = FIOSIM6C) 25.8 mmHg 35- 45 LL POC ARTERIAL BLOOD GAS PO2 (test code = XQSGX2V) 74 mmHg 80-90 L POC HCO3 ARTERIAL (test code = ZCSLBH5X) 20.3 mmol/L 22.0-24.0 L POC BASE EXCESS (test code = POCBEA) -3 mmol/L -2.0-2.0 L POC O2 SATURATION (test code = POCO2S) 96 % 95-98 N ARTERIAL FIO2 (test code = FIO2A) 40 % ABG DELIVERY (test code = KEVAN) Vent ABG VENT MODE (test code = MODEA) Cpap, ps ABG PATIENT RESP RATE (test code = RRPATA) 16 /MIN 12-20 N ABG PEEP (test code = PEEP) 5 cmH2O ABG PRESSURE SUPPORT (test code = PSABG) 10 cmH2O ABG SITE (test code = SITEA) R Rad ALLENS TEST (test code = ALLENS) Pass [id number] 15:49:00* Test Item Value Reference Range Interpretation Comments GLUBED (test code = GLUBED) 110 MG/DL 74-106 H POC ARTERIAL BLOOD [id number] 15:34:00* Test Item Value Reference Range Interpretation Comments POC ARTERIAL BLOOD GAS PH (test code = POCPHA) 7.497 7.35-7. 45 H POC ARTERIAL BLOOD GAS PCO2 (test code = RZXKVN4F) 25.5 mmHg 35- 45 LL POC ARTERIAL BLOOD GAS PO2 (test code = ARZBK9J) 61 mmHg 80-90 L POC HCO3 ARTERIAL (test code = TTYLTK3N) 19.8 mmol/L 22.0-24.0 L POC BASE EXCESS (test code = POCBEA) -3 mmol/L -2.0-2.0 L POC O2 SATURATION (test code = POCO2S) 94 % 95-98 L ARTERIAL FIO2 (test code = FIO2A) 40 % ABG DELIVERY (test code = KEVAN) Vent ABG VENT MODE (test code = MODEA) AC Volume ABG PATIENT RESP RATE (test code = RRPATA) 16 /MIN 12-20 N ABG PEEP (test code = PEEP) 5 cmH2O ABG SITE (test code = SITEA) R Miguel ALLENS TEST (test code = ALLENS) Pass [id number] 07:56:00* Test Item Value Reference Range Interpretation Comments GLUBED (test code = GLUBED) 129 MG/DL 74-106 H POC ARTERIAL BLOOD [id number] 06:51:00* Test Item Value Reference Range Interpretation Comments POC ARTERIAL BLOOD GAS PH (test code = POCPHA) 7.488 7.35-7. 45 H POC ARTERIAL BLOOD GAS PCO2 (test code = JXJUAZ8X) 22.6 mmHg 35- 45 LL POC ARTERIAL BLOOD GAS PO2 (test code = WPAFY0K) 95 mmHg 80-90 H POC HCO3 ARTERIAL (test code = BOFRTS0N) 17.1 mmol/L 22.0-24.0 L POC BASE EXCESS (test code = POCBEA) -6 mmol/L -2.0-2.0 L POC O2 SATURATION (test code = POCO2S) 98 % 95-98 N ARTERIAL FIO2 (test code = FIO2A) 40 % ABG DELIVERY (test code = KEVAN) Vent ABG VENT MODE (test code = MODEA) AC Volume ABG PATIENT RESP RATE (test code = RRPATA) 20 /MIN 12-20 N ABG PEEP (test code = PEEP) 5 cmH2O ABG PRESSURE SUPPORT (test code = PSABG) 10 cmH2O ABG SITE (test code = SITEA) Art Line ALLENS TEST (test code = ALLENS) N/A CBC W/MANUAL [id number] 06:03:00* Test Item Value Reference Range Interpretation Comments WHITE BLOOD CELL (test code = WBC) 11.2 x10 3/uL 5.0-12.0 N RED BLOOD CELL (test code = RBC) 3.54 x10 6/uL 4.20-5.40 L HEMOGLOBIN (test code = HGB) 12.0 g/dL 12.0-16.0 HEMATOCRIT (test code = HCT) 37.2 % 36.0-46.0 MEAN CELL VOLUME (test code = MCV) 105 fL 81-99 H MEAN CELL HGB (test code = MCH) 33.9 pg 27-31 H MEAN CELL HGB CONCENTRATION (test code = MCHC) 32.3 g/dL 33-37 L RED CELL DISTRIBUTION WIDTH (test code = RDW) 18.0 % 11.5-15. 5 H PLATELET COUNT (test code = PLT) 122 x10 3/uL 130-400 L MEAN PLATELET VOLUME (test code = MPV) 10.9 fL 9.4-16.4 N TOTAL CELLS COUNTED (test code = TCC) 100 #CELLS SEGMENTED NEUTROPHILS (test code = SEG) 96 % 43-65 H LYMPHOCYTE (test code = LYMPH) 1 % 20.5-45.5 L MONOCYTE (test code = MON) 3 % 5.5-11.7 L POLYCHROMASIA (test code = POLC) 1+ NONE SEEN A POIKILOCYTOSIS (test code = POIK) 1+ NONE SEEN A ANISOCYTOSIS (test code = ANISO) 1+ NONE SEEN A MACROCYTOSIS (test code = MACR) 1+ NONE SEEN A CRENATED CELLS (test code = CREN) 1+ NONE SEEN A PLATELET ESTIMATE (test code = PLTEST) ADEQUATE ADEQUATE PLATELET MORPHOLOGY (test code = PLTMORPH) NORMAL NORMAL - XR CHEST 1 [id number] 04:39:00 FAX: Michael JnAlfred Vásquez N [phone] [place]: [facility]: ADM FAX: Michael BeanKofi Schwab [phone] Name: LEONOR VELIZ [facility] [place] : 1950 Age/S: 68/F [address] Unit #: [id number] Loc: C.ICU0 [place] [address] Phys: Alfred Ragsdale NP Acct: [id number] Dis Date: Status: ADM IN PHONE #: [phone] Exam Date: 12/10/2018 0432 FAX #: [phone] Reason: ventilator EXAMS: CPT CODE: [id number] XR CHEST 1 V [id number] EXAM: - XR CHEST 1 V HISTORY: Follow-up. COMPARISON: December 09, 2018. FINDINGS: Single AP view of the chest is provided. Support tubes and lines are unchanged. Bibasilar opacities may represent small pleural effusions and atelectasis. No evidence of pneumothorax. Shoulder degenerative changes are present. IMPRESSION: Stable support tubes and lines. Small bilateral pleural effusions and basilar atelectasis. at 0439 Reported and signed by: Marcelo Li MD CC: Alfred Ragsdale RED CAP; Kofi Bean MD Technologist: MONIQUE MCCLURE RT (R) Trnscrd Date/Time/By: 12/10/2018 (0439) : By: [email or web address] PAGE 1 Signed Report FAX: Michael Alfred Ragsdale [phone] [place]: [facility]: ADM FAX: Kofi Briones [phone] Name: LEONOR JOHNSON [facility] : [birth year] Age/S: 68/F [address] Unit #: [id number] Loc: C.ICU0 [place] [address] Phys: Alfred Ragsdale RED CAP Acct: [id number] Dis Date: Status: ADM IN PHONE #: [phone] Exam Date: 12/10/2018 0432 FAX #: [phone] Reason: ventilator EXAMS: CPT CODE: [id number] XR CHEST 1 V 20182 <Continued> Orig Print D/T: S: 12/10/2018 (0442) PAGE 2 Signed Report VANCOMYCIN 2018-12-10 04:28:00* Test Item Value Reference Range Interpretation Comments VANCOMYCIN (test code = VANCO) 12.72 ug/mL ~~~~~~~~~~~~~~~~~~~~~~~~~~~~~~~~~~~~~~~~~~~THERAPEUTIC REFERENCE RANGE NOT ESTABLISHEDWHEN NOT DRAWN PEAK OR TROUGH LEVEL.~~~~~~~~~~~~~~~~~~~~~~~~~~~~~~~~~~~~~~~~~~~ POC ARTERIAL BLOOD [id number] 04:25:00* Test Item Value Reference Range Interpretation Comments POC ARTERIAL BLOOD GAS PH (test code = POCPHA) 7.480 7.35-7. 45 H POC ARTERIAL BLOOD GAS PCO2 (test code = NXUDUT3E) 23.6 mmHg 35- 45 LL POC ARTERIAL BLOOD GAS PO2 (test code = QMWCF1T) 203 mmHg 80-90 H POC HCO3 ARTERIAL (test code = ZVFZFL9R) 17.6 mmol/L 22.0-24.0 L POC BASE EXCESS (test code = POCBEA) -6 mmol/L -2.0-2.0 L POC O2 SATURATION (test code = POCO2S) 100 % 95-98 H ARTERIAL FIO2 (test code = FIO2A) 60 % DR NOTIFIED ABG DELIVERY (test code = KEVAN) Vent ABG VENT MODE (test code = MODEA) AC Volume ABG PATIENT RESP RATE (test code = RRPATA) 18 /MIN 12-20 N ABG PEEP (test code = PEEP) 5 cmH2O ABG SITE (test code = SITEA) Art Line ALLENS TEST (test code = ALLENS) N/A BASIC METABOLIC [id number] 04:24:00* Test Item Value Reference Range Interpretation Comments SODIUM (test code = NA) 143 mmol/L 137-145 N POTASSIUM (test code = K) 3.8 mmol/L 3.4-5.0 N CHLORIDE (test code = CL) 117 mmol/L 98-107 H CARBON DIOXIDE (test code = CO2) 20 mmol/L 22-30 L GLUCOSE (test code = GLU) 114 mg/dL 74-106 H BLOOD UREA NITROGEN (test code = BUN) 40 mg/dL 7-17 H GLOMERULAR FILTRATION RATE (test code = GFR) 40 >60 L The estimated glomerular filtration rate is computed usingpatient race, age (>18), sex, and serum creatinine. If anyof the needed data elements are missing the Laboratory cannot compute an estimation of the glomerular filtration rate. CREATININE (test code = CREAT) 1.4 mg/dL 0.5-1.0 H CALCIUM (test code = CA) 7.6 mg/dL 8.4-10.2 L CBC W/MANUAL [id number] 04:08:00* Test Item Value Reference Range Interpretation Comments WHITE BLOOD CELL (test code = WBC) 11.2 x10 3/uL 5.0-12.0 N RED BLOOD CELL (test code = RBC) 3.54 x10 6/uL 4.20-5.40 L HEMOGLOBIN (test code = HGB) 12.0 g/dL 12.0-16.0 HEMATOCRIT (test code = HCT) 37.2 % 36.0-46.0 MEAN CELL VOLUME (test code = MCV) 105 fL 81-99 H MEAN CELL HGB (test code = MCH) 33.9 pg 27-31 H MEAN CELL HGB CONCENTRATION (test code = MCHC) 32.3 g/dL 33-37 L RED CELL DISTRIBUTION WIDTH (test code = RDW) 18.0 % 11.5-15. 5 H PLATELET COUNT (test code = PLT) 122 x10 3/uL 130-400 L MEAN PLATELET VOLUME (test code = MPV) 10.9 fL 9.4-16.4 N TOTAL CELLS COUNTED (test code = TCC) #CELLS SEGMENTED NEUTROPHILS (test code = SEG) % 43-65 LYMPHOCYTE (test code = LYMPH) % 20.5-45.5 CBC W/MANUAL [id number] 04:08:00* Test Item Value Reference Range Interpretation Comments WHITE BLOOD CELL (test code = WBC) 11.2 x10 3/uL 5.0-12.0 N RED BLOOD CELL (test code = RBC) 3.54 x10 6/uL 4.20-5.40 L HEMOGLOBIN (test code = HGB) 12.0 g/dL 12.0-16.0 HEMATOCRIT (test code = HCT) 37.2 % 36.0-46.0 MEAN CELL VOLUME (test code = MCV) 105 fL 81-99 H MEAN CELL HGB (test code = MCH) 33.9 pg 27-31 H MEAN CELL HGB CONCENTRATION (test code = MCHC) 32.3 g/dL 33-37 L RED CELL DISTRIBUTION WIDTH (test code = RDW) 18.0 % 11.5-15. 5 H PLATELET COUNT (test code = PLT) 122 x10 3/uL 130-400 L MEAN PLATELET VOLUME (test code = MPV) 10.9 fL 9.4-16.4 N TOTAL CELLS COUNTED (test code = TCC) #CELLS SEGMENTED NEUTROPHILS (test code = SEG) % 43-65 LYMPHOCYTE (test code = LYMPH) % 20.5-45.5 POC ARTERIAL BLOOD [id number] 22:41:00* Test Item Value Reference Range Interpretation Comments POC ARTERIAL BLOOD GAS PH (test code = POCPHA) 7.321 7.35-7. 45 L POC ARTERIAL BLOOD GAS PCO2 (test code = GHGMIJ7R) 20.7 mmHg 35- 45 LL POC ARTERIAL BLOOD GAS PO2 (test code = PAFLC3F) 96 mmHg 80-90 H POC HCO3 ARTERIAL (test code = OSSBPE8Q) 10.7 mmol/L 22.0-24.0 L POC BASE EXCESS (test code = POCBEA) -15 mmol/L -2.0-2.0 L POC O2 SATURATION (test code = POCO2S) 97 % 95-98 N ARTERIAL FIO2 (test code = FIO2A) 60 % ABG DELIVERY (test code = KEVAN) Vent ABG VENT MODE (test code = MODEA) AC Volume ABG PATIENT RESP RATE (test code = RRPATA) 21 /MIN 12-20 H ABG PEEP (test code = PEEP) 5 cmH2O ABG SITE (test code = SITEA) Art Line ALLENS TEST (test code = ALLENS) N/A [id number] 21:46:00* Test Item Value Reference Range Interpretation Comments GLUBED (test code = GLUBED) 240 MG/DL 74-106 H POC VENOUS BLOOD [id number] 20:45:00* Test Item Value Reference Range Interpretation Comments SODIUM (POC) (test code = NA/ABG) 141 mmol/L 137-145 N POTASSIUM (POC) (test code = K/ABG) 3.5 MMOL/L 3.4-5.0 N IONIZED CALCIUM (test code = CAIABG) 0.78 mmol/L 1.12-1.32 L POC VENOUS BLOOD GAS PH (test code = POCPHV) 7.137 7.35-7.45 LL POC VENOUS BLOOD GAS PCO2 (test code = PTPZII1B) 41.2 mmHg 35-45 N POC VENOUS BLOOD GAS PO2 (test code = KCWBZ7N) 258 mmHg 80-90 H POC TCO2 VENOUS (test code = KFUTDR7F) 15 MMOL/L 22-30 L POC HCO3 VENOUS (test code = NUZRVK7A) 13.9 mmol/L 22-24 L POC BASE EXCESS VENOUS (test code = POCBEV) -15 mmol/L -2-2 L POC O2 SATURATION VENOUS (test code = YINF1DB) 100 % 95-98 H [id number] 17:34:00* Test Item Value Reference Range Interpretation Comments GLUBED (test code = GLUBED) 80 MG/DL 74-106 N [id number] 17:26:00* Test Item Value Reference Range Interpretation Comments GLUBED (test code = GLUBED) 82 MG/DL 74-106 N [id number] 17:26:00* Test Item Value Reference Range Interpretation Comments GLUBED (test code = GLUBED) 61 MG/DL 74-106 L - CT ABD PELVIS [id number] 16:13:00 FAX: Don Burt [phone] [place]: St: ADM FAX: Kofi Briones [phone] Name: LEONOR VELIZ [facility] : 1950 Age/S: 68/F [address] Unit: [id number] Loc: C.ICU0 [place] [address] Phys: Don Molina MD Acct: [id number] Dis Date: Status: ADM IN PHONE #: [phone] Exam Date: 12/09/2018 1550 FAX #: [phone] Reason: colitis EXAMS: CPT CODE: [id number] CT ABD PELVIS W/CONT 42706 C3 TIME OF STUDY: 12/09/2018 1:04 PM REASON FOR EXAM: colitis COMPARISON: 12/09/2018. TECHNIQUE: Helical post contrast enhanced images were obtained through the abdomen and pelvis. Sagittal and coronal reformats were obtained and rev iewed. One or more of the following radiation dose reduction techn iques was used: automated exposure control, adjustment of mA and/or KV acc ording to patient size, and/or utilization of iterative reconstruction technique. FINDINGS: CT Abdomen: The included l diogo bases demonstrate small bilateral pleural effusions and associated ate lectasis. Incidentally noted there is a right lower lobe pulmonary emboli sm (image 4, series 2). There is small amount of perihepatic and p erisplenic ascites. There is circumferential thickening of small a nd large bowel with intraluminal fluid present throughout. There is a ying rt segment of circumferential nonenhancement in the stable transverse colo n with significant wall thickening and early pneumatosis. Remaining loops of small and large bowel demonstrate normal enhancement. Calcified and soft plaque at the origin of the celiac and SMA are present, but the degree of stenosis is difficult to evaluate due to the artifact from calci fied plaque. There is normal enhancement of the mesenteric arterial and v enous structures. There is a 2.8 cm right renal cortical cyst pres ent. The liver, pancreas, kidneys, adrenal glands and spleen all h ave normal appearance. There is no mesenteric or retroperitoneal ad enopathy. There is no free air. Osseous structures demonstrate postopera tive changes of posterior fusion at L3-L4. Advanced degenerative changes at L2-L3 and L4-L5. PAGE 1 Signed Report (CONTINUED) FAX: Don Burt [phone] [place]: St: ADM FAX: Kofi Briones [phone] Name: LEONOR LANCASTER [facility] : 1950 Age/S: 68/F [address] Unit: [id number] c: C.ICU[address] [place] [address] Phys: Don Molina MD Acct: [id number] Dis Date: Status: ADM IN PHONE #: [phone] Exam Date: 12/09/2018 1550 FAX #: [phone] Aditi son: colitis EXAMS: CPT CODE: [id number] CT ABD PELVIS W/CONT 33446 <Continued> CT Pelvis: The ureters and bladder are grossly normal. There is no free air, free fluid, loculated collection or adenopathy in the pelvis. A left superficial femoral vein filling defect representing thrombus is partially visualized. IMPRESSION: 1. Focal ischemic colitis involving the distal transverse colon likely representing a watershed infarct. 2. Incidentally noted and partially visualized right lower lobe pulmonary embolism, and left superficial femoral vein DVT. Findings were discussed with Don Molina MD and Dr. Andrzej Hendrix on 12/09/2018 4 PM approximately. FOR INTERNAL CODING PURPOSES ONLY RESULT CODE : CVR at 1613 * * Reported and signed by: Savage Rodriguez MD CC: Don Molina MD; Kofi Bean MD Technologist: Mirella Campos; MONIQUE CASTELLANOS Trnscrd Dt/Tm: 12/09/2018 (1613) [email or web address] Orig Print D/T: S: 12/09/2018 (1616 PAGE 2 Signed Report UA RFLX MICR CULT IF [id number] 14:58:00* Test Item Value Reference Range Interpretation Comments UA COLOR (test code = COLU) Yellow Yellow UA APPEARANCE (test code = APPU) Clear Clear UA GLUCOSE DIPSTICK (test code = DGLUU) Negative Negative UA BILIRUBIN DIPSTICK (test code = BILU) Negative Negative UA KETONE DIPSTICK (test code = KETU) Negative mg/dL Negative UA SPECIFIC GRAVITY (test code = SGU) 1.013 <1.030 UA BLOOD DIPSTICK (test code = JULIANE) 2+ Negative A UA PH DIPSTICK (test code = DIGNA) 5.0 5.0-8.0 UA PROTEIN DIPSTICK (test code = PROU) 30 (1+) mg/dL Negative A UA UROBILINOGEN DIPSTICK (test code = URO) Negative mg/dL Negative UA NITRITE DIPSTICK (test code = CHILO) Negative Negative UA LEUKOCYTE ESTERASE DIPSTICK (test code = LEUU) NEGATIVE Nega tive UA WBC (test code = WBCUR) 4-5 /HPF <4-5 A < 10 WBC/HPF = PYURIA ABSENT URINE CULTURE NOT INDICATED UA RBC (test code = RBCU) 4-5 /HPF <4-5 A UA BACTERIA (test code = BACU) Rare /HPF None-Rare UA SQUAMOUS CELLS (test code = SQU) 0-5 (RARE) /HPF 0-5 (RARE) UA MUCUS (test code = MUCU) Rare /LPF <Rare A less than 18 yrs old, neutropenic, or urological surgery? NOPrimary Indication f or Culture: Sev Sepsis No Oth SourceCBC W/MANUAL [id number] 14:07:00* Test Item Value Reference Range Interpretation Comments WHITE BLOOD CELL (test code = WBC) 10.5 x10 3/uL 5.0-12.0 N RED BLOOD CELL (test code = RBC) 2.42 x10 6/uL 4.20-5.40 L HEMOGLOBIN (test code = HGB) 8.3 g/dL 12.0-16.0 L HEMATOCRIT (test code = HCT) 26.4 % 36.0-46.0 L MEAN CELL VOLUME (test code = MCV) 109 fL 81-99 H MEAN CELL HGB (test code = MCH) 34.3 pg 27-31 H MEAN CELL HGB CONCENTRATION (test code = MCHC) 31.4 g/dL 33-37 L RED CELL DISTRIBUTION WIDTH (test code = RDW) 15.5 % 11.5-15. 5 N PLATELET COUNT (test code = PLT) 136 x10 3/uL 130-400 N MEAN PLATELET VOLUME (test code = MPV) 11.2 fL 9.4-16.4 N TOTAL CELLS COUNTED (test code = TCC) 100 #CELLS SEGMENTED NEUTROPHILS (test code = SEG) 57 % 43-65 N BAND NEUTROPHIL (test code = BAND) 19 % 0-1 H LYMPHOCYTE (test code = LYMPH) 4 % 20.5-45.5 L ATYPICAL LYMPH (test code = ALYMPH) 1 % 0-1 N MONOCYTE (test code = MON) 18 % 5.5-11.7 H METAMYELOCYTE (test code = META) 1 % 0-0 H NUCLEATED RED BLOOD CELL (test code = NRBC) 0.8 /100WBC 0-0 H POIKILOCYTOSIS (test code = POIK) 2+ NONE SEEN A ANISOCYTOSIS (test code = ANISO) 1+ NONE SEEN A ECHINOCYTES (test code = ECH) 1+ NONE SEEN A PLATELET ESTIMATE (test code = PLTEST) ADEQUATE ADEQUATE PLATELET MORPHOLOGY (test code = PLTMORPH) NORMAL NORMAL BASIC METABOLIC [id number] 13:25:00* Test Item Value Reference Range Interpretation Comments SODIUM (test code = NA) 142 mmol/L 137-145 N POTASSIUM (test code = K) 3.9 mmol/L 3.4-5.0 N CHLORIDE (test code = CL) 120 mmol/L 98-107 H CARBON DIOXIDE (test code = CO2) 13 mmol/L 22-30 L GLUCOSE (test code = GLU) 85 mg/dL 74-106 N BLOOD UREA NITROGEN (test code = BUN) 50 mg/dL 7-17 H GLOMERULAR FILTRATION RATE (test code = GFR) 28 >60 L The estimated glomerular filtration rate is computed usingpatient race, age (>18), sex, and serum creatinine. If anyof the needed data elements are missing the Laboratory cannot compute an estimation of the glomerular filtration rate. CREATININE (test code = CREAT) 1.9 mg/dL 0.5-1.0 H CALCIUM (test code = CA) 6.3 mg/dL 8.4-10.2 L CBC W/MANUAL [id number] 13:17:00* Test Item Value Reference Range Interpretation Comments WHITE BLOOD CELL (test code = WBC) 10.5 x10 3/uL 5.0-12.0 N RED BLOOD CELL (test code = RBC) 2.42 x10 6/uL 4.20-5.40 L HEMOGLOBIN (test code = HGB) 8.3 g/dL 12.0-16.0 L HEMATOCRIT (test code = HCT) 26.4 % 36.0-46.0 L MEAN CELL VOLUME (test code = MCV) 109 fL 81-99 H MEAN CELL HGB (test code = MCH) 34.3 pg 27-31 H MEAN CELL HGB CONCENTRATION (test code = MCHC) 31.4 g/dL 33-37 L RED CELL DISTRIBUTION WIDTH (test code = RDW) 15.5 % 11.5-15. 5 N PLATELET COUNT (test code = PLT) 136 x10 3/uL 130-400 N MEAN PLATELET VOLUME (test code = MPV) 11.2 fL 9.4-16.4 N TOTAL CELLS COUNTED (test code = TCC) #CELLS SEGMENTED NEUTROPHILS (test code = SEG) % 43-65 LYMPHOCYTE (test code = LYMPH) % 20.5-45.5 CBC W/MANUAL [id number] 13:17:00* Test Item Value Reference Range Interpretation Comments WHITE BLOOD CELL (test code = WBC) 10.5 x10 3/uL 5.0-12.0 N RED BLOOD CELL (test code = RBC) 2.42 x10 6/uL 4.20-5.40 L HEMOGLOBIN (test code = HGB) 8.3 g/dL 12.0-16.0 L HEMATOCRIT (test code = HCT) 26.4 % 36.0-46.0 L MEAN CELL VOLUME (test code = MCV) 109 fL 81-99 H MEAN CELL HGB (test code = MCH) 34.3 pg 27-31 H MEAN CELL HGB CONCENTRATION (test code = MCHC) 31.4 g/dL 33-37 L RED CELL DISTRIBUTION WIDTH (test code = RDW) 15.5 % 11.5-15. 5 N PLATELET COUNT (test code = PLT) 136 x10 3/uL 130-400 N MEAN PLATELET VOLUME (test code = MPV) 11.2 fL 9.4-16.4 N TOTAL CELLS COUNTED (test code = TCC) #CELLS SEGMENTED NEUTROPHILS (test code = SEG) % 43-65 LYMPHOCYTE (test code = LYMPH) % 20.5-45.5 [id number] 10:18:00* Test Item Value Reference Range Interpretation Comments GLUBED (test code = GLUBED) 116 MG/DL 74-106 H [id number] 10:18:00* Test Item Value Reference Range Interpretation Comments GLUBED (test code = GLUBED) 59 MG/DL 74-106 L - XR CHEST 1 [id number] 10:10:00 FAX: Kofi Briones [phone] [place]: St: ADM FAX: Mary Monsalve NP [phone] Name: LEONOR VELIZ [facility] : 1950 Age/S: 68/F [address] Unit #: [id number] Loc: C.ICU0 [place] [address] Phys: Mary Beltran NP Acct: [id number] Dis Date: Status: ADM IN PHONE #: [phone] Exam Date: 12/09/2018 0955 FAX #: [phone] Reason: right IJ central line placement confirmation EXAMS: CPT CODE: [id number] XR CHEST 1 V 54653 LOCATION: T18 EXAM: CHEST 1 VIEW INDICATION: right IJ central line placement confirmation COMPARISON: Chest x-ray December 09, 2018 TECHNIQUE: AP chest radiograph. FINDINGS: Right IJ catheter placed with tip at the cavoatrial junction. No pneumothorax is seen. Bilateral perihilar airspace opacity, left greater than right. Interval improvement from the previous exam. Heart and mediastinum are normal in size and contour. Bones and peripheral soft tissues are unchanged. IMPRESSION: Right IJ central venous catheter in satisfactory position. No pneumothorax. Bilateral perihilar opacity with interval improvement. at 1010 Reported and signed by: Gilmar Jim MD CC: Kofi Bean MD; Mary Beltran NP Technologist: SANTY Duarte Date/Time/By: 12/09/2018 (1010) : By: [email or web address] PAGE 1 Signed Report FAX: Kofi Briones [phone] [place]: St: ADM FAX: Mary Monsalve NP [phone] Name: LEONOR VELIZ [facility] [place] : 1950 Age/S: 68/F [address] Unit #: [id number] Loc: C.ICU0 [place] [address] Phys: Mary Beltran NP Acct: [id number] Dis Date: Status: ADM IN PHONE #: [phone] Exam Date: 12/09/2018954 FAX #: [phone] Reason: right IJ central line placement confirmation EXAMS: CPT COD E: [id number] XR CHEST 1 V 09653 <Continued> Orig Print D/T: S: 12/09/2018 (1013) PAGE 2 Signed Report LACTIC [id number] 09:24:00* Test Item Value Reference Range Interpretation Comments LACTIC ACID (test code = LACT) 1.4 mmol/L 0.7-2.0 N CBC W/MANUAL [id number] 07:59:00* Test Item Value Reference Range Interpretation Comments WHITE BLOOD CELL (test code = WBC) 10.1 x10 3/uL 5.0-12.0 N RED BLOOD CELL (test code = RBC) 2.49 x10 6/uL 4.20-5.40 L HEMOGLOBIN (test code = HGB) 8.6 g/dL 12.0-16.0 L HEMATOCRIT (test code = HCT) 27.3 % 36.0-46.0 L MEAN CELL VOLUME (test code = MCV) 110 fL 81-99 H MEAN CELL HGB (test code = MCH) 34.5 pg 27-31 H MEAN CELL HGB CONCENTRATION (test code = MCHC) 31.5 g/dL 33-37 L RED CELL DISTRIBUTION WIDTH (test code = RDW) 15.6 % 11.5-15. 5 H PLATELET COUNT (test code = PLT) 172 x10 3/uL 130-400 N MEAN PLATELET VOLUME (test code = MPV) 10.6 fL 9.4-16.4 N TOTAL CELLS COUNTED (test code = TCC) 100 #CELLS SEGMENTED NEUTROPHILS (test code = SEG) 73 % 43-65 H BAND NEUTROPHIL (test code = BAND) 19 % 0-1 H LYMPHOCYTE (test code = LYMPH) 4 % 20.5-45.5 L MONOCYTE (test code = MON) 3 % 5.5-11.7 L BASOPHIL (test code = BASO) 1 % 0.2-1.0 N POLYCHROMASIA (test code = POLC) 1+ NONE SEEN A ANISOCYTOSIS (test code = ANISO) 1+ NONE SEEN A MACROCYTOSIS (test code = MACR) 1+ NONE SEEN A ECHINOCYTES (test code = ECH) 1+ NONE SEEN A PLATELET ESTIMATE (test code = PLTEST) ADEQUATE ADEQUATE PLATELET MORPHOLOGY (test code = PLTMORPH) PLATELET CLUMPS SEEN NOR MAL - CT ABD PELVIS W/O [id number] 07:02:00 FAX: Alfred Martinez [phone] [place]: St: ADM FAX: Kofi Briones [phone] Name: LEONOR VELIZ [facility] : 1950 Age/S: 68/F [address] Unit: [id number] Loc: C.ICU0 [place] [address] Phys: Alfred Ragsdale RED CAP Acct: [id number] Dis Date: Status: ADM IN PHONE #: [phone] Exam Date: 12/09/2018 0645 FAX #: [phone] Reason: ABD PAIN, R/O PANCREATITIS EXAMS: CPT CODE: [id number] CT ABD PELVIS W/O CONT 14689 EXAM: - CT ABD PELVIS W/O CONT HISTORY: 68 years -old Female with abdominal pain Location code:C3 MAR HNIQUE: Contrast - No IV contrast was given. No oral contrast was given Noncontrast phase - abdomen and pelvis including all of kidneys Recon structions - coronal and sagittal planes Automated exposure reduct ion (Auto mA/Smart mA) was utilized in compliance with ACR Image Wisely wi th DLP of 593.93 mGy-cm. COMPARISON: None FINDINGS: Statements: Lack of intravenous contrast compromises evaluation of a bdominopelvic organs and vasculature. Lack of oral contrast compromises ev aluation of bowel. Thoracic: Coarse lower lobe opacities are seen with trace effusions. Hepatobiliary: The liver is normal without focal lesion. Status post cholecystectomy. No biliary dilation. Pancreas: Normal. Spleen: Normal. Adrenals: Nor mal. Genitourinary: Low-density right renal cyst is present. No u reteral calculi or obstructive uropathy is seen. Nicole catheter is present within the urinary bladder. Gastrointestinal: The colon is markedly distended with fluid which extends in the distal small bowel loop s. There is wall thickening and inflammatory change of the descending col on with fluid in the left paracolic gutter. This dilated loops of bowel e xtends to anastomosis site of the colon in the left lower quadrant. Small bowel loops are distended up to 3.5 cm. The appendix is not seen. PAGE 1 Signed Report (CONTINUED) FAX: Alfred Martinez [phone] [place]: St: ADM FAX: Kofi Briones [phone] Name: LEONOR VELIZ [facility] : 1950 Age/S: 68/F [address] Unit: [id number] Loc: C.ICU0 [place] [address] Phys: Alfred Ragsdale RED CAP Acct: [id number] Dis Date: Status: ADM IN PHONE #: [phone] Exam Date: 12/09/2018 06 FAX #: [phone] Reason: ABD PAIN, R/O PANCREA TITIS EXAMS: CPT CODE: [id number] CT ABD PELVIS W/O CONT 38465 <Continued> Vascular: Atherosclerotic calcifications are seen within the aorta and branch vessels. Lymphatics: No enlarged lymph nodes by CT size criteria. Bones/Soft Tissues: Posterior fixation at L3-4 is present with laminectomy defect at L3. Compression deformity at T9 remote nature is present. There is no acute osseous abnormality. IMPRESSION: 1. Diffuse distention of loops of large and small bowel with fluid may be secondary to colitis given inflammatory change and wall thickening in the descending colon. Obstruction at anastomotic site about the left lower abdomen and the colon is an additional consideration. 2. Coarse lower lobe opacities with trace effusions concerning for pneumonia. at 0702 Reported and signed by: Catrachito Liu MD CC: Alfred Ragsdale RED CAP; Kofi Bean MD Technologist: MISBAH TAPIA Dt/Tm: 12/09/2018 (0702) [email or web address] Orig Print D/T: S: 12/09/2018 (1516 PAGE 2 Signed Report - CT HEAD/BRAIN W/O [id number] 06:58:00 FAX: Alfred Martinez [phone] [place]: St: ADM FAX: Michael Kofi Bean [phone] Name: LEONOR VELIZ [facility] : 1950 Age/S: 68/F [address] Unit: [id number] Loc: C.ICU[address] [place] [address] Phys: Alfred Ragsdale RED CAP Acct: [id number] Dis Date: Status: ADM IN PHONE #: [phone] Exam Date: 12/09/2018 0645 FAX #: [phone] Reason: AMS EXAMS: CPT CODE: [id number] CT HEAD/BRAIN W/O CONT 62987 EXAM: - CT HEAD/BRAIN W/O CONT Location code:C3 HISTORY: 68 years -old Female with altered level of consciousness TECHNIQUE: Axial CT images from the skull base to the vertex without intravenous contrast. Coronal and sagittal reformatted images were created from the data set. One or more of the following dose reduction techniques were used: Automated exposure control, adjustment of the mA and/or kV according to patient size, and/or utilization of iterative reconstruction technique. DLP: 957.78 mGy-cm. COMPARISON: None FINDINGS: Intracranial: Diminished attenuation in the right parietal lobe indicative of remote infarction is seen. No evidence of acute infarction, intracranial hemorrhage, mass or mass effect, or a bnormal extra-axial fluid collection. The ventricular syst em and sulci are age appropriate. There is patchy diminished attenuation i nvolving the periventricular and subcortical white matter compatible with moderate microvascular chronic ischemic changes. The densit y in the larger dural sinuses is grossly normal. Bones: There is no evidence of acute displaced calvarial fracture. Sinuses: The vi sualized portions of the paranasal sinuses of significant opacification.Le ft mastoid effusion is seen. The right mastoid air cells are unremarkable . Orbits/Soft Tissues: The visualized orbits show no significant abnormalities. The visualized soft tissues are unremarkable. IMPRESSION: 1. No CT evidence of acute intracranial abnor mality. PAGE 1 Signed Report (CONT INUED) FAX: Alfred Martinez [phone] [place]: St: ADM FA X: Kofi Briones [phone] Name: LEONOR VELIZ [facility] : 1950 Age/S: 68/F [address] Unit: [id number] Loc: C.ICU0 [place] [address] Phys: Alfred Ragsdale NP Acct: [id number] Dis Date: Status: ADM IN PHONE #: [phone] Exam Date: 2018 0645 FAX #: [phone] Reason: AMS EXAMS: CPT CODE: [id number] CT HEAD/BRAIN W/O CONT 70 450 <Continued> 2. 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 3. Left mastoid effusion. at 0658 Reported and signed by: Catrachito Liu MD CC: Alfred Ragsdale RED CAP; Kofi Bean MD Technologist: MISBAH TAPIArd Dt/Tm: 12/09/2018 (0658) [email or web address] Orig Print D/T: S: 12/09/2018 (0701 PAGE 2 Signed Report COMPREHENSIVE METABOLIC [id number] 06:49:00* Test Item Value Reference Range Interpretation Comments SODIUM (test code = NA) 141 mmol/L 137-145 N POTASSIUM (test code = K) 4.2 mmol/L 3.4-5.0 N CHLORIDE (test code = CL) 116 mmol/L 98-107 H CARBON DIOXIDE (test code = CO2) 14 mmol/L 22-30 L GLUCOSE (test code = GLU) 76 mg/dL 74-106 N BLOOD UREA NITROGEN (test code = BUN) 55 mg/dL 7-17 H GLOMERULAR FILTRATION RATE (test code = GFR) 22 >60 L The estimated glomerular filtration rate is computed usingpatient race, age (>18), sex, and serum creatinine. If anyof the needed data elements are missing the Laboratory cannot compute an estimation of the glomerular filtration rate. CREATININE (test code = CREAT) 2.3 mg/dL 0.5-1.0 H TOTAL PROTEIN (test code = PROT) 4.8 g/dL 6.3-8.2 L ALBUMIN (test code = ALB) 2.5 g/dL 3.5-5.0 L CALCIUM (test code = CA) 7.3 mg/dL 8.4-10.2 L BILIRUBIN TOTAL (test code = BILT) 0.3 mg/dL 0.2-1.3 N BILIRUBIN CONJUGATED (test code = BILCON) 0 mg/dL 0-0.3 N ~~~~~~~~~~~~~~~~~~~~~~~~~~~~~~~~~~~~~~~~~~~~~~~~~~~~~~~~~~~~CONJUGATED BILIRUBIN IS THE REPLACEMENT ASSAY FOR DIRECTBILIRUBIN.~~~~~~~~~~~~~~~~~~~~~~~~~~~~~~~~~~~~~~~~~~~~~~~~~~~~~~~~~~~~ BILIRUBIN UNCONJUGATED (test code = BILUNC) 0 mg/dL 0-1.1 N SGOT/AST (test code = AST) 54 U/L 15-46 H SGPT/ALT (test code = ALT) 33 U/L 13-69 N ALKALINE PHOSPHATASE (test code = ALKP) 506 U/L 38-126 H LIPID PROFILE (CORONARY RISK)2018-12-09 06:49:00* Test Item Value Reference Range Interpretation Comments TRIGLYCERIDES (test code = TRIG) 247 mg/dL TRIGLYCERIDES REFERENCE RANGE:Normal: <150 mg/dLBorderline High: 150-199 mg/dLHigh: 200-499 mg/dLVery High: >=500 mg/dL CHOLESTEROL (test code = CHOL) 87 mg/dL CHOLESTEROL REFERENCE RANGE:DESIRABLE: < 200 mg/dLBORDERLINE: 200-239 mg/dLHIGH: >=240 mg/dL HDL CHOLESTEROL (test code = HDL) 27 mg/dL 40-59 L LIPOPROTEIN LDL (test code = LDLC) < 30.00 mg/dL 32-99 L CORONARY RISK FACTOR (test code = RISK) 3.22 CHOL/HDL RISK MALE: 1/2 AVG 3.43 FEMALE: 1/2 AVG 3.27 AVG 4.97 AVG 4.44 2X AVG 9.55 2X AVG 7.05 3X AVG 23.39 3X AVG 11.04~~~~~~~~~~~~~~~~~~~~~~~~~~~~~~~~~~~~~~~~~~~~~~~~~~~~~~~~~~~~National Cholesterol Education (NCEP) Guidelines:~~~~~~~~~~~~~~~~~~~~~~~~~~~~~~~~~~~~~~~~~~~~~~~~~~~~~~~~~~~~ HDL Cholesterol<40mg/dL: HDL Cholesterol (Major risk factor for CHD)>60mg/dL: HDL Cholesterol (Negative risk factor for CHD)40-59mg/dL: Borderline Risk LDL Cholesterol<100mg/dL: Desirable LDL-C qjnohtrecbibn592-374uj/dL: Borderline High Risk LDL-C rtqxmyifxaoof369-299md/dL: High risk LDL-C concentration HDL-LDL Cholesterol is affected by a number of factors suchas smoking, age and sex.~~~~~~~~~~~~~~~~~~~~~~~~~~~~~~~~~~~~~~~~~~~~~~~~~~~~~~~~~~~~ [id number] 06:49:00* Test Item Value Reference Range Interpretation Comments PHOSPHOROUS (test code = PHOS) 6.1 mg/dL 2.5-4.5 H LACTIC DEHYDROGENASE(LDH)2018-12-09 06:49:00* Test Item Value Reference Range Interpretation Comments LACTIC DEHYDROGENASE(LDH) (test code = LDH) 586 U/L 313-618 N Please be advised of the updated reference ranges for the new Chemistry instrumentation. [id number] 06:49:00* Test Item Value Reference Range Interpretation Comments AMYLASE (test code = MELVINA) 437 U/L 30-110 H [id number] 06:49:00* Test Item Value Reference Range Interpretation Comments LIPASE (test code = LIP) 35 U/L 23-300 N [id number] 06:49:00* Test Item Value Reference Range Interpretation Comments MAGNESIUM (test code = MAG) 2.3 mg/dL 1.6-2.3 N THYROID STIMULATING [id number] 06:49:00* Test Item Value Reference Range Interpretation Comments THYROID STIMULATING HORMONE (test code = TSH) 11.800 mIU/L 0.465-4. 68 H A positive bias may occur for patients taking BIOTINsupplements. NT PRO-BRAIN NATRIURETIC [id number] 06:49:00* Test Item Value Reference Range Interpretation Comments NT PRO-BRAIN NATRIURETIC PEPTI (test code = PROBNP) 43226 pg/mL 0- 299 H ~~~~~~~~~~~~~~~~~~~~~~~~~~~~~~~~~~~~~~~~~~~~~~~~~~~~~~~~~~~~NT PRO-BNP IS THE REPLACEMENT ASSAY FOR BNP.~~~~~~~~~~~~~~~~~~~~~~~~~~~~~~~~~~~~~~~~~~~~~~~~~~~~~~~~~~~~RULE-IN CUT POINTS FOR PATIENTS WITH SUSPECTED ACUTECONGESTIVE HEART FAILURE:<50 yrs old: >450 pg/mL50-75 yrs old: >900 pg/mL>75 yrs old: >1800 pg/mLA positive bias may occur on patients taking BIOTINsupplements. CARDIAC ENZYMES [id number] 06:49:00* Test Item Value Reference Range Interpretation Comments CREATINE KINASE (CK) (test code = CK) 182 U/L 30-135 H CKMB (test code = CKMBT) 3.17 ng/mL 0.5-5.0 N TROPONIN-I (test code = TROPI) 0.030 ng/mL 0.012-0.033 N Please be advised of the updated reference ranges for the new Chemistry instrumentation. VITROS TROPONIN I CRITERIANORMAL PATIENT W/O CIRCULATING TNI: 0.012-0.033 ng/mLCIRCULATING TNI PRESENT: 0.034-0.119 ng/mL(MAY BE AT RISK OF AMI)AMI DIAGNOSTIC CUTOFF: >/= 0.120 ng/mL~~~~~~~~~~~~~~~~~~~~~~~~~~~~~~~~~~~~~~~~~~~~~~~~~~~~~~~~~~~The use of serial sampling and testing protocol is arecommended practice.An elevated troponin level alone is often not sufficient fordiagnosis of myocardial infarction. Troponin results obtained by different assays may vary.Evaluation of the extent of myocardial damage based onincrease of troponin would be valid only if similarmethodology is used.~~~~~~~~~~~~~~~~~~~~~~~~~~~~~~~~~~~~~~~~~~~~~~~~~~~~~~~~~~~ PROCALCITONIN (PCT)2018-12-09 06:46:00* Test Item Value Reference Range Interpretation Comments PROCALCITONIN (PCT) (test code = PROCAL) 99.87 NG/ML HH Critical Value reported [facility] Name:[id number] Last Name:RESULTS READ BACK AND VERIFIEDby ROSI, on 12/09/18, @ 0646. Procalcitonin (PCT) Normal Value: <0.05 NG/ML <0.5 NG/ML - low risk of severe sepsis and/or septic shock>2.0 NG/ML - high risk of severe sepsis and/or septic shock PCT concentrations between 0.5 and 2.0 NG/ML should beinterpreted taking into account the patient's history.It is recommended to retest PCT within 6-24 hours if anyconcentrations between 0.5-2.0 NG/ML are obtained. COMPREHENSIVE METABOLIC [id number] 06:35:00* Test Item Value Reference Range Interpretation Comments SODIUM (test code = NA) 141 mmol/L 137-145 N POTASSIUM (test code = K) 4.2 mmol/L 3.4-5.0 N CHLORIDE (test code = CL) 116 mmol/L 98-107 H CARBON DIOXIDE (test code = CO2) 14 mmol/L 22-30 L GLUCOSE (test code = GLU) 76 mg/dL 74-106 N BLOOD UREA NITROGEN (test code = BUN) 55 mg/dL 7-17 H GLOMERULAR FILTRATION RATE (test code = GFR) 22 >60 L The estimated glomerular filtration rate is computed usingpatient race, age (>18), sex, and serum creatinine. If anyof the needed data elements are missing the Laboratory cannot compute an estimation of the glomerular filtration rate. CREATININE (test code = CREAT) 2.3 mg/dL 0.5-1.0 H TOTAL PROTEIN (test code = PROT) 4.8 g/dL 6.3-8.2 L ALBUMIN (test code = ALB) 2.5 g/dL 3.5-5.0 L CALCIUM (test code = CA) 7.3 mg/dL 8.4-10.2 L BILIRUBIN TOTAL (test code = BILT) 0.3 mg/dL 0.2-1.3 N BILIRUBIN CONJUGATED (test code = BILCON) 0 mg/dL 0-0.3 N ~~~~~~~~~~~~~~~~~~~~~~~~~~~~~~~~~~~~~~~~~~~~~~~~~~~~~~~~~~~~CONJUGATED BILIRUBIN IS THE REPLACEMENT ASSAY FOR DIRECTBILIRUBIN.~~~~~~~~~~~~~~~~~~~~~~~~~~~~~~~~~~~~~~~~~~~~~~~~~~~~~~~~~~~~ BILIRUBIN UNCONJUGATED (test code = BILUNC) 0 mg/dL 0-1.1 N SGOT/AST (test code = AST) 54 U/L 15-46 H SGPT/ALT (test code = ALT) 33 U/L 13-69 N ALKALINE PHOSPHATASE (test code = ALKP) 506 U/L 38-126 H LIPID PROFILE (CORONARY RISK)2018-12-09 06:35:00* Test Item Value Reference Range Interpretation Comments TRIGLYCERIDES (test code = TRIG) 247 mg/dL TRIGLYCERIDES REFERENCE RANGE:Normal: <150 mg/dLBorderline High: 150-199 mg/dLHigh: 200-499 mg/dLVery High: >=500 mg/dL CHOLESTEROL (test code = CHOL) 87 mg/dL CHOLESTEROL REFERENCE RANGE:DESIRABLE: < 200 mg/dLBORDERLINE: 200-239 mg/dLHIGH: >=240 mg/dL HDL CHOLESTEROL (test code = HDL) 27 mg/dL 40-59 L LIPOPROTEIN LDL (test code = LDLC) < 30.00 mg/dL 32-99 L CORONARY RISK FACTOR (test code = RISK) 3.22 CHOL/HDL RISK MALE: 1/2 AVG 3.43 FEMALE: 1/2 AVG 3.27 AVG 4.97 AVG 4.44 2X AVG 9.55 2X AVG 7.05 3X AVG 23.39 3X AVG 11.04~~~~~~~~~~~~~~~~~~~~~~~~~~~~~~~~~~~~~~~~~~~~~~~~~~~~~~~~~~~~National Cholesterol Education (NCEP) Guidelines:~~~~~~~~~~~~~~~~~~~~~~~~~~~~~~~~~~~~~~~~~~~~~~~~~~~~~~~~~~~~ HDL Cholesterol<40mg/dL: HDL Cholesterol (Major risk factor for CHD)>60mg/dL: HDL Cholesterol (Negative risk factor for CHD)40-59mg/dL: Borderline Risk LDL Cholesterol<100mg/dL: Desirable LDL-C uhmzqbhuajrgo019-622br/dL: Borderline High Risk LDL-C svwmupmxgdzwz791-025mt/dL: High risk LDL-C concentration HDL-LDL Cholesterol is affected by a number of factors suchas smoking, age and sex.~~~~~~~~~~~~~~~~~~~~~~~~~~~~~~~~~~~~~~~~~~~~~~~~~~~~~~~~~~~~ [id number] 06:35:00* Test Item Value Reference Range Interpretation Comments PHOSPHOROUS (test code = PHOS) 6.1 mg/dL 2.5-4.5 H LACTIC DEHYDROGENASE(LDH)2018-12-09 06:35:00* Test Item Value Reference Range Interpretation Comments LACTIC DEHYDROGENASE(LDH) (test code = LDH) 586 U/L 313-618 N Please be advised of the updated reference ranges for the new Chemistry instrumentation. [id number] 06:35:00* Test Item Value Reference Range Interpretation Comments AMYLASE (test code = MELVINA) 437 U/L 30-110 H [id number] 06:35:00* Test Item Value Reference Range Interpretation Comments LIPASE (test code = LIP) 35 U/L 23-300 N [id number]:35:00* Test Item Value Reference Range Interpretation Comments MAGNESIUM (test code = MAG) 2.3 mg/dL 1.6-2.3 N THYROID STIMULATING [id number]:35:00* Test Item Value Reference Range Interpretation Comments THYROID STIMULATING HORMONE (test code = TSH) mIU/L 0.465-4. 68 NT PRO-BRAIN NATRIURETIC [id number] 06:35:00* Test Item Value Reference Range Interpretation Comments NT PRO-BRAIN NATRIURETIC PEPTI (test code = PROBNP) 03942 pg/mL 0- 299 H ~~~~~~~~~~~~~~~~~~~~~~~~~~~~~~~~~~~~~~~~~~~~~~~~~~~~~~~~~~~~NT PRO-BNP IS THE REPLACEMENT ASSAY FOR BNP.~~~~~~~~~~~~~~~~~~~~~~~~~~~~~~~~~~~~~~~~~~~~~~~~~~~~~~~~~~~~RULE-IN CUT POINTS FOR PATIENTS WITH SUSPECTED ACUTECONGESTIVE HEART FAILURE:<50 yrs old: >450 pg/mL50-75 yrs old: >900 pg/mL>75 yrs old: >1800 pg/mLA positive bias may occur on patients taking BIOTINsupplements. CARDIAC ENZYMES [id number] 06:35:00* Test Item Value Reference Range Interpretation Comments CREATINE KINASE (CK) (test code = CK) 182 U/L 30-135 H CKMB (test code = CKMBT) 3.17 ng/mL 0.5-5.0 N TROPONIN-I (test code = TROPI) 0.030 ng/mL 0.012-0.033 N Please be advised of the updated reference ranges for the new Chemistry instrumentation. VITROS TROPONIN I CRITERIANORMAL PATIENT W/O CIRCULATING TNI: 0.012-0.033 ng/mLCIRCULATING TNI PRESENT: 0.034-0.119 ng/mL(MAY BE AT RISK OF AMI)AMI DIAGNOSTIC CUTOFF: >/= 0.120 ng/mL~~~~~~~~~~~~~~~~~~~~~~~~~~~~~~~~~~~~~~~~~~~~~~~~~~~~~~~~~~~The use of serial sampling and testing protocol is arecommended practice.An elevated troponin level alone is often not sufficient fordiagnosis of myocardial infarction. Troponin results obtained by different assays may vary.Evaluation of the extent of myocardial damage based onincrease of troponin would be valid only if similarmethodology is used.~~~~~~~~~~~~~~~~~~~~~~~~~~~~~~~~~~~~~~~~~~~~~~~~~~~~~~~~~~~ LACTIC [id number] 06:23:00* Test Item Value Reference Range Interpretation Comments LACTIC ACID (test code = LACT) 2.5 mmol/L 0.7-2.0 HH Critical Value reported toFirst Name:[id number] Last Name:RESULTS READ BACK AND VERIFIEDby ROSI, on 12/09/18, @ 0622. Spec Comments: Must be collected witin 3hrs of time zeroCOMPREHENSIVE METABOLIC [id number] 06:21:00* Test Item Value Reference Range Interpretation Comments SODIUM (test code = NA) 141 mmol/L 137-145 N POTASSIUM (test code = K) 4.2 mmol/L 3.4-5.0 N CHLORIDE (test code = CL) 116 mmol/L 98-107 H CARBON DIOXIDE (test code = CO2) 14 mmol/L 22-30 L GLUCOSE (test code = GLU) 76 mg/dL 74-106 N BLOOD UREA NITROGEN (test code = BUN) 55 mg/dL 7-17 H GLOMERULAR FILTRATION RATE (test code = GFR) 22 >60 L The estimated glomerular filtration rate is computed usingpatient race, age (>18), sex, and serum creatinine. If anyof the needed data elements are missing the Laboratory cannot compute an estimation of the glomerular filtration rate. CREATININE (test code = CREAT) 2.3 mg/dL 0.5-1.0 H TOTAL PROTEIN (test code = PROT) 4.8 g/dL 6.3-8.2 L ALBUMIN (test code = ALB) 2.5 g/dL 3.5-5.0 L CALCIUM (test code = CA) 7.3 mg/dL 8.4-10.2 L BILIRUBIN TOTAL (test code = BILT) 0.3 mg/dL 0.2-1.3 N BILIRUBIN CONJUGATED (test code = BILCON) 0 mg/dL 0-0.3 N ~~~~~~~~~~~~~~~~~~~~~~~~~~~~~~~~~~~~~~~~~~~~~~~~~~~~~~~~~~~~CONJUGATED BILIRUBIN IS THE REPLACEMENT ASSAY FOR DIRECTBILIRUBIN.~~~~~~~~~~~~~~~~~~~~~~~~~~~~~~~~~~~~~~~~~~~~~~~~~~~~~~~~~~~~ BILIRUBIN UNCONJUGATED (test code = BILUNC) 0 mg/dL 0-1.1 N SGOT/AST (test code = AST) 54 U/L 15-46 H SGPT/ALT (test code = ALT) 33 U/L 13-69 N ALKALINE PHOSPHATASE (test code = ALKP) 506 U/L 38-126 H LIPID PROFILE (CORONARY RISK)2018-12-09 06:21:00* Test Item Value Reference Range Interpretation Comments TRIGLYCERIDES (test code = TRIG) 247 mg/dL TRIGLYCERIDES REFERENCE RANGE:Normal: <150 mg/dLBorderline High: 150-199 mg/dLHigh: 200-499 mg/dLVery High: >=500 mg/dL CHOLESTEROL (test code = CHOL) 87 mg/dL CHOLESTEROL REFERENCE RANGE:DESIRABLE: < 200 mg/dLBORDERLINE: 200-239 mg/dLHIGH: >=240 mg/dL HDL CHOLESTEROL (test code = HDL) 27 mg/dL 40-59 L LIPOPROTEIN LDL (test code = LDLC) mg/dL 32-99 CORONARY RISK FACTOR (test code = RISK) 3.22 CHOL/HDL RISK MALE: 1/2 AVG 3.43 FEMALE: 1/2 AVG 3.27 AVG 4.97 AVG 4.44 2X AVG 9.55 2X AVG 7.05 3X AVG 23.39 3X AVG 11.04~~~~~~~~~~~~~~~~~~~~~~~~~~~~~~~~~~~~~~~~~~~~~~~~~~~~~~~~~~~~National Cholesterol Education (NCEP) Guidelines:~~~~~~~~~~~~~~~~~~~~~~~~~~~~~~~~~~~~~~~~~~~~~~~~~~~~~~~~~~~~ HDL Cholesterol<40mg/dL: HDL Cholesterol (Major risk factor for CHD)>60mg/dL: HDL Cholesterol (Negative risk factor for CHD)40-59mg/dL: Borderline Risk LDL Cholesterol<100mg/dL: Desirable LDL-C kkhinkoyeftgm489-188gg/dL: Borderline High Risk LDL-C cmneosvahnxjk019-894gw/dL: High risk LDL-C concentration HDL-LDL Cholesterol is affected by a number of factors suchas smoking, age and sex.~~~~~~~~~~~~~~~~~~~~~~~~~~~~~~~~~~~~~~~~~~~~~~~~~~~~~~~~~~~~ [id number] 06:21:00* Test Item Value Reference Range Interpretation Comments PHOSPHOROUS (test code = PHOS) 6.1 mg/dL 2.5-4.5 H LACTIC DEHYDROGENASE(LDH)2018-12-09 06:21:00* Test Item Value Reference Range Interpretation Comments LACTIC DEHYDROGENASE(LDH) (test code = LDH) 586 U/L 313-618 N Please be advised of the updated reference ranges for the new Chemistry instrumentation. [id number] 06:21:00* Test Item Value Reference Range Interpretation Comments AMYLASE (test code = MELVINA) 437 U/L 30-110 H [id number] 06:21:00* Test Item Value Reference Range Interpretation Comments LIPASE (test code = LIP) 35 U/L 23-300 N [id number] 06:21:00* Test Item Value Reference Range Interpretation Comments MAGNESIUM (test code = MAG) 2.3 mg/dL 1.6-2.3 N THYROID STIMULATING [id number] 06:21:00* Test Item Value Reference Range Interpretation Comments THYROID STIMULATING HORMONE (test code = TSH) mIU/L 0.465-4. 68 NT PRO-BRAIN NATRIURETIC [id number] 06:21:00* Test Item Value Reference Range Interpretation Comments NT PRO-BRAIN NATRIURETIC PEPTI (test code = PROBNP) pg/mL 0- 299 CARDIAC ENZYMES [id number] 06:21:00* Test Item Value Reference Range Interpretation Comments CREATINE KINASE (CK) (test code = CK) 182 U/L 30-135 H CKMB (test code = CKMBT) ng/mL 0.5-5.0 TROPONIN-I (test code = TROPI) ng/mL 0.012-0.033 [id number] 06:21:00* Test Item Value Reference Range Interpretation Comments AMMONIA (test code = AMM) 31 umol/L 9-30 H PROTHROMBIN [id number] 06:14:00* Test Item Value Reference Range Interpretation Comments PROTHROMBIN TIME PATIENT (test code = PTP) 13.0 SECONDS 9.2-12.1 H INTERNATIONAL NORMAL RATIO (test code = INR) 1.2 The INR is to be used only for monitoring ORAL ANTICOAGULANTTHERAPY. Indication INR Value1. Prophylaxis/treatment of: Venous Thrombosis, Pulmonary Embolism 2.0 - 3.02. Prevention of systemic embolism from: Tissue heart valves 2.0 - 3.0 Acute myocardial infarction (to present systemic embolism)* 2.0 - 3.0 Valvular heart disease 2.0 - 3.0 Atrial fibrillation 2.0 - 3.03. Mechanical prosthetic valves (high risk) 2.5 - 3.5 * If oral anticoagulant therapy is elected to preventrecurrent myocardial infarction, an INR of 2.5-3.5 isrecommended, consistent with Food and Drug Administrationrecommendations. THROMBOPLASTIN TIME [id number] 06:14:00* Test Item Value Reference Range Interpretation Comments THROMBOPLASTIN TIME PARTIAL (test code = PTT) 27.3 SECONDS 23.4-37. 0 N Therapeutic Range for Heparin EFFECTIVE 04/01/13 Heparin IU/mL aPTT Seconds0.3 64.30.7 88.8 POC ARTERIAL BLOOD [id number] 06:08:00* Test Item Value Reference Range Interpretation Comments POC ARTERIAL BLOOD GAS PH (test code = POCPHA) 7.365 7.35-7. 45 N POC ARTERIAL BLOOD GAS PCO2 (test code = [id number]) 18.8 mmHg 35- 45 LL POC ARTERIAL BLOOD GAS PO2 (test code = DYDLQ7L) 98 mmHg 80-90 H POC HCO3 ARTERIAL (test code = [id number]) 10.8 mmol/L 22.0-24.0 L POC BASE EXCESS (test code = POCBEA) -15 mmol/L -2.0-2.0 L POC O2 SATURATION (test code = POCO2S) 98 % 95-98 N ABG DELIVERY (test code = KEVAN) Cannula DR NOTIFIED ABG SITE (test code = SITEA) R Reggie IBANEZ TEST (test code = ALLENS) N/A CBC W/MANUAL [id number] 06:06:00* Test Item Value Reference Range Interpretation Comments WHITE BLOOD CELL (test code = WBC) 10.1 x10 3/uL 5.0-12.0 N RED BLOOD CELL (test code = RBC) 2.49 x10 6/uL 4.20-5.40 L HEMOGLOBIN (test code = HGB) 8.6 g/dL 12.0-16.0 L HEMATOCRIT (test code = HCT) 27.3 % 36.0-46.0 L MEAN CELL VOLUME (test code = MCV) 110 fL 81-99 H MEAN CELL HGB (test code = MCH) 34.5 pg 27-31 H MEAN CELL HGB CONCENTRATION (test code = MCHC) 31.5 g/dL 33-37 L RED CELL DISTRIBUTION WIDTH (test code = RDW) 15.6 % 11.5-15. 5 H PLATELET COUNT (test code = PLT) 172 x10 3/uL 130-400 N MEAN PLATELET VOLUME (test code = MPV) 10.6 fL 9.4-16.4 N TOTAL CELLS COUNTED (test code = TCC) #CELLS SEGMENTED NEUTROPHILS (test code = SEG) % 43-65 LYMPHOCYTE (test code = LYMPH) % 20.5-45.5 - XR CHEST 1 [id number] 05:38:00 FAX: Alfred Martinez [phone] [place]: St: [facility] FAX: Kofi Briones [phone] Name: VELIZLEONOR SYLVESTER [facility] : 1950 Age/S: 68/F [address] Unit #: [id number] Loc: [facility] [place] [address] Phys: Alfred Ragsdale RED CAP Acct: [id number] Dis Date: Status: ADM IN PHONE #: [phone] Exam Date: 12/09/2018529 FAX #: [phone] Reason: baseline, sepsis EXAMS: CPT CODE: [id number] XR CHEST 1 V 83596 EXAM: - XR CHEST 1 V HISTORY: Sepsis. COMPARISON: September 28, 2008. FINDINGS: Single AP view of the chest is provided. Heart size and vascularity are within normal limits. Hypoinflation of the lungs. Minimal dependent changes or trace atelectasis at lung bases. No effusion, pneumothorax, or acute osseous abnormality. Previous fusion metallic plate in lower cervical spine. Severe degenerative changes in both shoulder joints. IMPRESSION: Minimal basilar atelectasis. Hypoinflation of lungs. Bilateral shoulder degenerative changes. at 6781 Reported and signed by: Marcelo Li MD CC: Alfred Ragsdale RED CAP; Kofi Bean MD Technologist: RT Millie Nath) Trnscrd Date/Time/By: 12/09/2018 (0538) : By: [email or web address] PAGE 1 Signed Report FAX: Alfred Martinez [phone] [place]: St: ADM FAX: Kofi Urena [phone] Name: LEONOR VELIZ [facility] [place] [place] : 1950 Age/S: 68/F [address] Unit #: [id number] Loc: C.ICU0 [place] [address] Phys: Alfred Ragsdale RED CAP Acct: [id number] Dis Date: Status: ADM IN PHONE #: [phone] Exam Date: 12/09/2018529 FAX #: [phone] Reason: baseline, sepsis EXAMS: CPT CODE: [id number] XR CHEST 1 V 00162 < Continued> Orig Print D/T: S: 12/09/2018 (2915) PAGE 2 Signed Report MRI SPINE LUMBAR WOW [facility] [address] [address] Patient Name: LEONOR VELIZ MR #: [id number] : 1950 Age/Sex: 67/F Req #: [id number] Adm Physician: Ordered by: FRANCISCA VENTURA M.D. Report #: [id number] Location: MRI Room/Bed: Procedure: [id number] MRI/MRI SPINE LUMBAR WOW Exa m Date: Exam Time: REPORT STATUS: Signed E xamination: MRI of the lumbar spine without and with contrast History: Low back pain. Paresthesias right upper leg. History of L4-5 laminectomy, L 3-4 fusion 2008. Also history of MS. Comparison: MRI lumbar spine reports and 01/17/2012 Technique: Sagittal T1 pre- and post-contrast, T2, STIR ; axial T1 pre- and post-contrast, T2; axial proton density angled for the dis cs. Intravenous contrast: 10 cc of MultiHance FINDINGS: It is ass umed that there are 5 lumbar vertebrae. Surgical changes: laminectomy at L3-L4. L3-L4 decompression. Posterior fusion procedure with bilateral pedicle screws and intervertebral spacer at L3-L4. Curvature: Grade 1 lou listhesis of L2 over L3, L3 over L4 and L4 over L5. Grade 1 mild retrolisthesi s of L5 over S1. Levoscoliosis centered at L2-L3. Vertebrae: No acute fra cture or aggressive lesion stable endplate irregularities from L2 through L5 w ithout Modic type I changes Conus: Normal, terminating at L1. No T2 or e nhancing lesions from T10 to S1. Cauda equina: Unremarkable. Low er thoracic:Grossly patent canal and foramina Paraspinal muscles:Bilatera l severe atrophy at the sacral level. Degenerative changes: Disc deg eneration with loss of T2 signal from L2 through S1. Decreased intervertebral space at L4-L5. Stable mild depression of the L3 and L4 superior endplates. L1-L2: Unremarkable. L2-L3:Diffuse disc bulge with superimposed rig ht foraminal disc protrusion and mild facet hypertrophy results in mild canal stenosis, severe right and mild left foraminal narrowing, mildly progressed L3-L4: Surgical level. Grade 1 anterolisthesis. No canal stenosis. Mild bilateral foraminal narrowing. L4-L5: Mild diffuse disc bulge and mild f acet hypertrophy without significant canal stenosis and mild right foraminal n arrowing. Nonvisualization of the ligamentum flavum secondary to previous inte rvention. L5-S1: Mild diffuse disc bulge with superimposed left subarticu lar disc protrusion results in no significant canal stenosis, narrowing of the left subarticular recess and severe left foraminal narrowing, mildly progress ed. Incidentally noted 2 cm cyst at the right internal pole region. IMPRESSION: Surgical changes at L3-4 and L4-5 without evidence of compl ication. Severe right foraminal narrowing at L2-L3 secondary to degenerativ e changes. Severe left foraminal narrowing at L5-S1 secondary to degenerati ve changes. Other degenerative changes as described above. Mild canal noris nosis Signed by: DR Collin Vazquez M.D. on 11/13/2017 4:07 PM Dictated By: COLLIN STRICKLAND MD [id number] Transcribed By: TERESE on 11/13/17 160 COPY TO: FRANCISCA VENTURA M.D. MRI SPINE CERVICAL WOW [address] [address] Patient Name: LEONOR VELIZ MR #: [id number] : 1950 Age/Sex: 67/F Req #: [id number] Adm Physician: Ordered by: AMBIKA VARGAS MD Report #: [id number] Location: MRI Room/Bed: Procedure: [id number] MRI/MRI SPINE CERVICAL WOW Exam Date: Exam Time: REPORT STATUS: Signed EXAMINATION: MRI of the cervical spine HISTORY: Multiple sclerosis C OMPARISON: Cervical spine MRI and 12/18/2016 TECHNIQUE: Pre-contrast sagittal T 1, T2, STIR; axial T1, T2.. Post contrast axial and sagittal T1. Intraveno us Contrast: 10 mL Gadavist. FINDINGS: Spinal Cord: Spinal cor d size: Normal T1 lesions: None Enhancing lesions: None T2 lesions: None Others: Vertebrae: Again noted status post ACDF with s olid interbody fusion from C4 to C7 Discs: Stable mild degenerative jacoby nges without significant spinal canal or foraminal stenoses. Craniocerv ical junction: Normal. Incidental findings: Partially visualized persiste nt opacification of the tip of the left mastoid air cells. IMPRESSION: 1. No interval change compared to MRI on 12/10/2016. Particularly no cervical spinal cord demyelinating lesions are seen. 2. Stable postoperative and degenerative changes as detailed above. Signed by: Dr. Lucas Garcia M.D. on 10/15/2017 7:18 AM Dictated By: LUCAS GARCIA MD 7 Transcribed By: TERESE on 10/15/17717 COPY TO: AMBIKA VARGAS MD MRI BRAIN WOW [address] [address] Patient Name: LEONOR VELIZ MR #: [id number] : 1950 Age/Sex: 67/F Req #: [id number] Adm Physician: Ordered by: AMBIKA VARGAS MD Report #: [id number] Location: MRI Room/Bed: Procedure: [id number] MRI/MRI BRAIN WOW Exam Leighton e: Exam Time: REPORT STATUS: Signed EXAMIN ATION: MRI of the brain with and without contrast . HISTORY:Multiple sclero sis, weakness. COMPARISON:Brain MRI and 12/18/2016 TECHNIQUE: Axial precont rast T1. Postcontrast axial and sagittal FLAIR, axial DWI, T2, and high axial and coronal fat sat T1. Intravenous contrast: 10 mL Gadavist FINDING S: T2 lesions: Too numerous and too confluent to count callosal, callosal septal interface, periventricular, castellano radiata, centrum semiovale, cortical subcortical and pontine T2 lesions. T1 lesions: None Enh ancing lesions: None Corpus callosum volume: Mild volume loss Brain volume: Mild generalized volume loss Other: No mass, hydroceph alus, hemorrhage, acute or chronic infarcts. Unchanged chronic lacunar infarct s in the bilateral basal ganglia. Persistent partial opacification of the left greater than right mastoid air cells, perhaps effusion. IMPRESSION: 1. Unchanged innumerable confluent mostly supratentorial white matter dem yelinating T2 lesions. No discrete new MS lesions. 2. Stable mild callosal and brain volume loss. 3. Unchanged small chronic lacunar infarcts. Signed by: Dr. Lucas Garcia M.D. on 10/15/2017 7:28 AM Dictated By: LUCAS GARCIA MD 7 Trans cribed By: TERESE on 10/15/17727 COPY TO: AMBIKA VARGAS MD
--- NOTE | 2020-08-02 23:05 | Diagnostic Imaging Report ---
EXAMINATION: Head CT HISTORY: 70 year old female status post fall, eye laceration COMPARISON: Brain MRI 01/29/2020 TECHNIQUE: Helical axial images of the head were obtained. Reformatted coronal and sagittal images from the axial data. Dose modulation, iterative reconstruction, and/or weight based adjustment of the mA/kV was utilized to reduce the radiation dose to as low as reasonably achievable. FINDINGS: Parenchyma: 1. Chronic cortical/subcortical right parietal infarct along the right superior parietal lobule and pars marginalis with encephalomalacia and gliosis is unchanged. 2. Small chronic lacunar infarcts present within the basal ganglia and in the left thalamus. 3. Also unchanged severe confluent supratentorial white matter hypodensities, perhaps a combination of demyelinating disease and chronic microvascular ischemic changes.. 4. No mass or hemorrhage. No CT evidence of acute territorial vascular insult. Extra-axial spaces:No abnormal density. No extra-axial fluid collections Brain volume: Mild generalized parenchymal volume loss. Ventricles: No hydrocephalus or displacement. Arteries: No density suggestive of thrombus. Dural sinuses: No abnormal density. Foramen magnum: No mass, Chiari malformation, or basilar invagination. Sella: No obvious mass. Paranasal/mastoid sinuses: Imaged portions unremarkable. Skull/Scalp: No lytic or blastic lesions. No fractures. Incidental findings: Intramuscular calcifications in the partially visualized temporalis muscle bilaterally. IMPRESSION: 1. No acute post traumatic intracranial abnormalities, particularly no hemorrhage. 2. Chronic cortical infarct in the right superior parietal lobule and small chronic lacunar infarcts in the deep adams nuclei, unchanged compared to MRI of 01/29/2020. 3. Confluent white matter hypodensities as detailed above are unchanged compared to MRI of 01/29/2020. Signed by: Dr. Yulisa Bonilla M.D. on 08/02/2020 11:02 PM
--- NOTE | 2020-08-02 23:30 | Diagnostic Imaging Report ---
EXAMINATION: CT of the cervical spine without contrast HISTORY: 70 year old female status post fall, eye laceration, head and neck pain. COMPARISON: None available TECHNIQUE: Multidetector helical axial images were obtained without contrast from the foramen magnum to T1. Dose modulation, iterative reconstruction, and/or weight based adjustment of the mA/kV was utilized to reduce the radiation dose to as low as reasonably achievable. FINDINGS: Alignment: Straightening of the cervical lordosis. Soft tissues: The thyroid gland is notable visualize, correlate with possible prior surgical resection. Vertebrae: Status post ACDF with solid interbody fusion at C4-C5, bone density interbody graft is integrated. No hardware failure. Partial fusion of the posterior elements is also noted. Solid postsurgical interbody fusion at the C6-C7. Degenerative changes: C1-C2: Normal C2-C3: Mild facet arthrosis without stenosis. C3-C4: Minimal disc bulge, no canal or foraminal stenosis. C4-C5: Solid interbody and posterior fusion. No stenoses C5-C6: Disc osteophyte complex formation and uncovertebral arthrosis. Widening of the dorsal interspinous distance and minimal widening of the left C5-C6 facet joint, associated mild kyphotic malalignment. Mild bilateral foraminal stenoses. C6-C7: Solid interbody fusion, no stenoses C7-T1: Normal IMPRESSION: 1. No acute cervical spine postraumatic abnormalities. 2. Solid surgical interbody fusion at C4-C5 and C6-C7 as described. 3. Degenerative changes at C5-C6 with mild kyphotic malalignment as above. Note: Acute postraumatic spinal cord, vascular or ligamentous injuries cannot adequately be assessed by CT. Signed by: Dr. Yulisa Bonilla M.D. on 08/02/2020 11:27 PM
--- NOTE | 2020-08-02 23:54 | Diagnostic Imaging Report ---
X-ray pelvis 1 view HISTORY: Pain. COMPARISON: None available. FINDINGS: Some osseous structures are partially secured by bowel contents. Sutures in the left pelvis. Bones: Suspect a nondisplaced right ischial tuberosity fracture versus enthesopathic changes. Joints: The joint spaces are well-maintained. Fixation hardware in the lumbar spine. Degenerative changes in the lumbar spine, hips, and pelvis. Soft tissues: Vascular calcifications. IMPRESSION: Suspect a nondisplaced right ischial tuberosity fracture versus enthesopathic changes. Signed by: Ty Collazo DO on 08/02/2020 11:51 PM
--- NOTE | 2020-08-02 23:58 | Diagnostic Imaging Report ---
EXAMINATION: CHEST SINGLE (PORTABLE) INDICATION: ^Y ^FALL ^[id number] ^2229 COMPARISON: None FINDINGS: TUBES and LINES: None. LUNGS: Hyperexpanded lungs. Lungs are clear. No consolidations. PLEURA: No pleural effusion or pneumothorax. HEART AND MEDIASTINUM: The cardiomediastinal silhouette is unremarkable. Aortic calcifications. BONES AND SOFT TISSUES: Cervical and lumbar fixation hardware. [place] in the right humeral head. Superior translation of both shoulders. Bilateral acromial and humeral head remodeling. Degenerative changes. Suspect loose ossific body in the right subacromial recess. UPPER ABDOMEN: No free air under the diaphragm. Cholecystectomy clips. IMPRESSION: No acute radiographic traumatic thoracic abnormality. Bilateral shoulder deformities are likely chronic in light of acromial and humeral remodeling. Signed by: Ty Collazo DO on 08/02/2020 11:55 PM
--- NOTE | 2020-08-03 00:04 | Emergency Department Note ---
History of Present Illnes History of Present Illness Chief Complaint: Laceration History of Present Illness This is a 70 year old female arrived to the ED after sustai. Chief Complaint Comment 70 Y/O FEMALE PT AAOX3 PRESENTS TO ED WITH REPORT OF WEAKNESS TODAY, WAS UNABLE TO STAND WITHOUT ASSISTANCE FOR 2 HRS; PT HAD FALL YESTERDAY, WAS SEEN AT URGENT CARE OUT OF TOWN, SUTURES WERE PLACED TO RIGHT ADVENT, PT HAD CT BRAIN WITH XRAYS; PT ALSO REPORTS PAIN TO RIGHT KNEE; ER MD TO TRIAGE FOR INITIAL EVAL Historian: Patient, Family Member Arrival Mode: Car Onset (how long ago): week(s) Progression: worsening Past Medical/Family History Physician Review I have reviewed the patient's past medical and family history. Any updates have been documented here. Past Medical History Recent Fever: No Clinical Suspicion of Infectio: No New/Unexplained Change in Ment: No Other Medical History: LUPUS, M.S., RHEUMATOID ARTHRITIS Other Surgery: SPINAL FUSION L5-6, C SPINE LAMINECTOMY. Social History Smoking Cessation: Never Smoker Other Last Tetanus: 6 YRS AGO Review of Systems Review of Systems Constitutional: Reports no symptoms, Reports malaise EENTM: Reports no symptoms Cardiovascular: Reports no symptoms Respiratory: Reports no symptoms Gastrointestinal: Reports no symptoms Genitourinary: Reports no symptoms Musculoskeletal: Reports no symptoms Integumentary: Reports no symptoms Neurological: Reports no symptoms Psychological: Reports no symptoms Endocrine: Reports no symptoms Hematological/Lymphatic: Reports no symptoms Physical Exam Related Data Allergies: Coded Allergies: cimetidine (Verified Allergy, Mild, DIARRHEA, 02/13/12) cimetidine HCl (Verified Allergy, Mild, DIARRHEA, 02/13/12) Uncoded Allergies: SULFA (Allergy, Mild, RASH, 02/13/12) Triage Vital Signs Vital Signs Date Time Temp Pulse Resp B/P (MAP) Pulse Ox O2 Delivery O2 Flow Rate FiO2 08/02/20 21:00 98.1 92 18 114/78 98 Room Air Vital signs reviewed: Yes Physical Exam CONSTITUTIONAL Constitutional: Present well-developed, Present cachectic HENT HENT: Present normocephalic, Present atraumatic, Present oropharynx clear/moist, Present nose normal HENT L/R: Present left ext ear normal, Present right ext ear normal EYES Eyes: Reports PERRL, Reports conjunctivae normal NECK Neck: Present ROM normal PULMONARY Pulmonary: Present effort normal, Present breath sounds normal CARDIOVASCULAR Cardiovascular: Present regular rhythm, Present heart sounds normal, Present capillary refill normal, Present normal rate GASTROINTESTINAL Abdominal: Present soft, Present nontender, Present bowel sounds normal GENITOURINARY Genitourinary: Present exam deferred SKIN Skin: Present warm, Present dry MUSCULOSKELETAL Musculoskeletal: Present ROM normal NEUROLOGICAL Neurological: Present alert, Present no gross motor or sensory deficits, Present weakness PSYCHOLOGICAL Psychological: Present mood/affect normal, Present judgement normal Results Laboratory Lab results reviewed: Yes Laboratory comments Laboratory Tests Test 08/03/20 03:20 08/03/20 02:10 White Blood Count 8.21 x10e3/uL (4.8-10.8) Red Blood Count 3.10 x10e6/uL (3.6-5.1) Hemoglobin 9.2 g/dL (12.0-16.0) Hematocrit 30.3 % (34.2-44.1) Mean Corpuscular Volume 97.7 fL (81-99) Mean Corpuscular Hemoglobin 29.7 pg (28-32) Mean Corpuscular Hemoglobin Concent 30.4 g/dL (31-35) Red Cell Distribution Width 15.0 % (11.7-14.4) Platelet Count 201 x10e3/uL (140-360) Neutrophils (%) (Auto) 68.7 % (38.7-80.0) Lymphocytes (%) (Auto) 13.3 % (18.0-39.1) Monocytes (%) (Auto) 13.9 % (4.4-11.3) Eosinophils (%) (Auto) 3.0 % (0.0-6.0) Basophils (%) (Auto) 0.6 % (0.0-1.0) Neutrophils # (Auto) 5.6 (2.1-6.9) Lymphocytes # (Auto) 1.1 (1.0-3.2) Monocytes # (Auto) 1.1 (0.2-0.8) Eosinophils # (Auto) 0.3 (0.0-0.4) Basophils # (Auto) 0.1 (0.0-0.1) Absolute Immature Granulocyte (auto 0.04 x10e3/uL (0-0.1) Sodium Level 140 mmol/L (136-145) Potassium Level 4.7 mmol/L (3.5-5.1) Chloride Level 108 mmol/L (98-107) Carbon Dioxide Level 16 mmol/L (22-29) Anion Gap 20.7 mmol/L (8-16) Blood Urea Nitrogen 33 mg/dL (7-26) Creatinine 1.74 mg/dL (0.57-1.11) Estimat Glomerular Filtration Rate 29 ML/MIN (60-) BUN/Creatinine Ratio 19 (6-25) Glucose Level 59 mg/dL (74-118) Calcium Level 9.0 mg/dL (8.4-10.2) Total Bilirubin 0.2 mg/dL (0.2-1.2) Aspartate Amino Transf (AST/SGOT) 53 IU/L (5-34) Alanine Aminotransferase (ALT/SGPT) 30 IU/L (0-55) Alkaline Phosphatase 141 IU/L (40-150) Creatine Kinase 938 IU/L (29-168) Creatine Kinase MB 9.60 ng/mL (0-5.0) Troponin I 0.012 ng/mL (0-0.300) Total Protein 5.6 g/dL (6.5-8.1) Albumin 3.1 g/dL (3.5-5.0) Globulin 2.5 g/dL (2.3-3.5) Albumin/Globulin Ratio 1.2 (0.8-2.0) Imaging Imaging results reviewed: Yes Assessment & Plan Medical Decision Making MDM This 70 yo F patient presents with symptoms consistent with syncope, most likely due to UNSTEADY GAIT/ATAXOA. Differential diagnosis includes reflex syncope (i.e. vasovagal syncope). Low suspicion for orthostatic syncope given lack of dehydration, no evidence of acute life threatening hemorrhage. Presentation not consistent with seizures given short time course, no postictal state, no seizure activity. Low suspicion for acute neurologic catastrophes to include ICH given lack of trauma, risk factors for bleeding diatheses. Low suspicion for vascular catastrophes to include PE, thoracic aortic dissection, AAA rupture. Presentation not consistent with acute life threatening arrhythmia, structural heart disease, electrical conduction abnormalities, or ACS (HEART score: HIGH). However, given age, cardiovascular risk factors, history & physical, will workup and admit to telemetry. Assessment & Plan Final Impression: (1) Syncope Depart Disposition: ADMITTED Last Vital Signs Date Time Temp Pulse Resp B/P (MAP) Pulse Ox O2 Delivery O2 Flow Rate FiO2 08/02/20 21:00 98.1 92 18 114/78 98 Room Air Home Meds Reported Medications Hydrocodone Bit/Acetaminophen (LORTAB 10-500 TABLET) 1 Each Tablet, 10 - 500 MG PO Q6 PRN 06/12/13 [Xeljenz] No Conflict Check, PO DAILY 06/09/13 Fentanyl (DURAGESIC 75MCG/HR) 1 Ea Patch, Q 3 DAYS 02/13/12 [Fluticasone Qd] No Conflict Check 02/13/12 Cetirizine Hcl (Zyrtec) 5 Mg Tablet, 5 MG PO PRN 02/13/12 [Ramipril Qd] No Conflict Check 02/13/12 Meloxicam (Meloxicam) 7.5 Mg Tablet, 7.5 MG PO BID 02/13/12 Omeprazole (Omeprazole) 40 Mg Capsule.dr, 40 MG PO DAILY 02/13/12 Carvedilol (Carvedilol) 6.25 Mg Tablet, 6.25 MG PO BID 02/13/12 Levothyroxine Sodium (Levothyroxine Sodium) 50 Mcg Tablet, 50 MCG PO DAILY 02/13/12 Zolpidem Tartrate (Ambien Cr) 12.5 Mg Tab.mphase, 12.5 MG PO PRN 02/13/12 Leflunomide (Arava) 10 Mg Tablet, 10 MG PO DAILY 02/13/12 Prednisone (Prednisone) 10 Mg Tab.ds.pk, 10 MG PO 02/13/12 Duloxetine Hcl (Cymbalta) 60 Mg Capsule.dr, 60 MG PO DAILY 02/13/12 Glatiramer (Copolymer-1) (Copaxone) 20 Mg Kit, 20 MG SQ DAILY 02/13/12 TESSA SALAZAR DO Aug 03, 2020 00:03
[2020-08-03] MEDS ORDERED: ASPIRIN 81 MG CHEW TAB PO ONE (01:45)
--- OUTSIDE RECORDS SUMMARY | 2020-08-03 01:58 | XMS REPORT | Clinical Summary ---
Author Author [facility] Organization [facility] Address Unknown Phone Unavailable Care Team Providers Care Electrical/Instrument Technician Name Role Phone Joseph Ornelas MD PCP [...] Orthopedic Surgery 03/02/2020 Travel 02/29/2020 Travel after 08/03/2019 Surgical History Surgery Date Site/Laterality Comments FOOT [...] shoulder pain, 9:25 AM CDT unspecified chronicity [place] ARTHROCENTESIS Routine 03/03/2020 Rotator cuff arthropathy ASPIR&/INJ MAJOR JT/BURSA 9:00 AM CDT of right sh oulder W/O US XR FINGER 2+ VW RIGHT Routine 03/02/2020 Finger p ain, right 3:39 PM CDT XR UPPER EXTREMITY Routine 02/27/2020 EXTERNAL STUDY 3:27 PM CDT XR UPPER EXTREMITY Routine 02/27/2020 EXTERNAL STUDY 3:27 PM CDT XR UPPER EXTREMITY Routine 02/27/2020 EXTERNAL STUDY 3:26 PM CDT after 08/03/2019 Results * XR Shoulder 2+ Vw Right (03/03/2020 9:25 AM CDT) Specimen Narrative Performed At [facility] Three-view x-rays of the right shoulder : There is evidence of advanced rotator cuff arthropathy with a pulled posterior glenoid wear pattern. She has severe proximal migration of th e humerus with obviously a chronically deficient rotator cuff Performing Organization Address [facility] Code P lori Number [facility] [address] [place] [address] * Large Joint Arthrocentesis: shoulder, R glenohumeral [...] alignment is good . Performing Organization Address [facility] Code P lori Number [facility] [address] [place] [address] * XR Upper Extremity External Study (02/27/2020 3:27 PM CDT) Only the most recent of 3 results within the time period is included. Specimen Narrative Performed At This exam was not acquired at a [facility] facility an d has not been [facility] interpreted by a [facility] Provider. The exam was imported into our imaging system. Performing Organization Address [facility] Code P lori Number [facility] [address] [place] [address] after 08/03/2019 Insurance Type Payer Benefit Subscriber ID Effective Phone Address Plan / Dates Group O [facility] [id number] 2017-P [facility] [place] [facility] Medicare MEDICARE MEDICARE [id number] [id number] [place], PART A AND 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
--- OUTSIDE RECORDS SUMMARY | 2020-08-03 01:59 | XMS REPORT | Continuity of Care Document ---
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 Name Role Phone [employer] Unavailable Un available Problems Problem Status Onset Date Classification Date Reported Comments Source Rheumatoid arthritis Active Problem 05/20/2018 Sivakumar Gómez Multiple sclerosis Active Problem 05/20/2018 Sivakumar Gómez Left knee pain Active Problem 05/20/2018 Sivakumar Gómez Primary osteoarthritis of left knee Active Problem Sivakumar Gómez USP (current) use of opiate analgesic Active Problem 05/20/2018 Sivakumar Gómez Chronic pain syndrome Active Problem 05/20/2018 Sivakumar Gómez Insomnia, unspecified type Act abhisehk Diagnosis 1 10/07/2016 Sivakumar Gómez Pain in [...] Active 1% Transdermal Four times a day Louise 06/29/2020 Sivakumar Gómez Prolia as directed Subcutaneous Active 60 MG/ML Subcutaneous q 6 months Louise 05/03/2020 Sivakumar Gómez PredniSONE 4 tablets with food or milk Orally Active 1 MG Orally Once a day Louise 03/31/2020 Sivakumar Gómez Orencia 500mg Intravenous Active 250 MG Intravenous at w paimiut 0 2 4 and then q4wks Louise 02/04/2020 Sivakumar Gómez PredniSONE 2 tablets Orally Active 5 MG Orally Once a day Louise 10/14/2019 Sivakumar Gómez Hydroxychloroquine Sulfate 1 t ablet with food or milk Orally Active 200 MG Orally Once a day [place] sandhu 10/14/2019 Sivakumar Gómez Ambien 1 tablet at bedtime Orally Active 5 MG Orally Once a day prn Louise 09/30/2019 Sivakumar Gómez Leflunomide 1 tablet Orally Active 10 MG Orally Once a day Louise 09/10/2019 Sivakumar Gómez Ambien 1 tablet at bedtime Orally Active 5 MG Orally Once a day Louise 08/25/2019 Sivakumar Gómez Prolia as directed Subcutaneous Active 60 MG/ML Subcutaneous q 6 months [place] 08/14/2019 Sivakumar Gómez Voltaren Gel apply 3grams to a ffected area Transdermal Active 1% Transdermal Four times a day Louise 07/30/2019 Sivakumar Gómez PredniSONE 1 tablet Orally Active 5 MG Orally Once a day [place] 04/28/2018 Sivakumar Gómez Leflunomide 1 tablet Orally Active 20 MG Orally Once a day [facility] 04/15/2018 Sivakumar Gómez Leflunomide take 1 tablet by m out once daily Orally Active 20 MG Orally Once a day [facility] 01/18/2018 Sivakumar Gómez PredniSONE 2 tablets Orally Active 5 MG Orally Once a day [facility] 01/01/2018 Sivakumar Gómez Leflunomide take 1 tablet by m outh once daily Orally Active 20 MG Orally Once a day [facility] 12/18/2017 Sivakumar Gómez Tramadol HCl as directed Orally Active 50 MG Orally every 6 ho urs [facility] 11/03/2017 Sivakumar Gómez Rituxan 1000 mg Intravenous Active 100 MG/10ML Intravenous [facility] 09/20/2017 Sivakumar Gómez Chardon 1 tablet as needed Orally Active 10-325 MG Orally BID [facility] 09/04/2017 Sivakumar Gómez Tramadol HCl as directed Orally Active 50 MG Orally every 6 ho urs [facility] 08/29/2017 Sivakumar Gómez Baclofen 1 tablet with food or milk Orally Active 10 MG Orally daily [facility] 08/05/2017 Sivakumar Gómez Arava 1 tablet Orally Active 20 MG Orally Once a day [facility] 05/02/2017 Sivakumar Gómez Arava 1 tablet Orally Active 20 MG Orally Once a day [facility] 05/02/2017 Sivakumar Gómez Chardon 1 tablet as needed Orally Active 10-325 MG Orally daily [facility] 02/22/2017 Sivakumar Gómez Fentanyl 1 patch to skin Transdermal Active 75 MCG/HR Transdermal q72 [facility] 01/25/2017 Sivakumar Gómez Hydroxychloroquine Sulfate 1 t ablet with food or milk Orally Active 200 MG Orally Once a day [facility] 11/30/2016 Sivakumar Gómez Fentanyl 1 patch to skin Transdermal Active 75 MCG/HR Transdermal q72 [facility] 11/28/2016 Sivakumar Gómez Chardon 1 tablet as needed Orally Active 10-325 MG Orally daily [facility] 11/28/2016 Sivakumar Gómez PredniSONE 1 tablet Orally Active 1 MG Orally Four times a day [facility] 09/14/2016 Sivakumar Gómez Ridaura 1 capsule Orally Active 3 MG Orally Once a day [facility] 05/17/2016 Sivakumar Gómez Fentanyl 1 patch to the skin Transdermal Active 75 MCG/HR Transdermal Q72 hrs [place] 02/28/2016 Sivakumar Gómez Gel One 1 injection Intra- articular Active 10 mg/ml Intra- articular Every 6 mths [facility] 10/17/2015 Sivakumar Gómez Cholecalciferol 1 capsule once a week Orally Active 75013 UNIT Orally [place] 03/14/2015 Sivakumar Gómez Cholecalciferol 1 capsule once a week Orally Active 77236 UNIT Orally [place] 03/14/2015 Sivakumar Gómez Leflunomide 1 tablet Orally Active 20 MG Orally Once a day [facility] 12/03/2014 Sivakumar Gómez Leflunomide take 1 tablet by m out once daily Orally Active 20 MG Orally [facility] a day [facility] 05/03/2014 Sivakumar Gómez Boniva 1 tablet Orally Active 150 MG Orally once a mo [facility] 01/19/2014 Sivakumar Gómez Ambien 1 tablet at bedtime Orally Active 5 MG Orally Bedtime [facility] Sivakumar Gómez Carvedilol as directed Orally Active 6.25 MG Orally [facility] Benson Gómez Omeprazole 2 capsules Orally Active 20 MG Orally Once a day [place] Sivakumar Gómez Tramadol HCl TAKE 1 TABLET BY MOUTH EVERY 4 TO 6 HOURS NEEDED FOR PAIN NA Active 50 MG [place] Sivakumar Gómez Fentanyl 1 patch to skin Transdermal Active 75 MCG/HR Transdermal q72 [facility] Sivakumar Gómez Chardon 1 tablet as needed Orally Active 10-325 MG Orally daily [place] Sivakumar Gómez PrednisoLONE as directed Orally Active 10 MG Orally [place] Gómez Zolpidem Tartrate TAKE 1 TABLE T BY MOUTH DAILY AT BEDTIME NA Active 5 MG [facility] Sivakumar Gómez Zyrtec Allergy 1 tablet Orally [...] bedtime Orally Active 5 MG Orally Bedtime [facility] Sivakumar Gómez Chardon 1 tablet as needed Orally Active 10-325 MG Orally daily [facility] Sivakumar Gómez Omeprazole 2 capsules Orally Active 20 MG Orally Once a day [facility] Sivakumar Gómez PrednisoLONE as directed Orally Active 10 MG Orally [facility] [place] Gómez Zyrtec Allergy 1 tablet Orally Active 10 MG Orally Once a day [facility] Sivakumar Gómez Carvedilol 1 tablet with food Orally Active 6.25 MG Orally Twice a day [place] Sivakumar Gómez Tramadol HCl as directed Orally Active 50 MG Orally every 6 ho urs [facility] Sivakumar Gómez Tecfidera 1 capsule Orally Active 240 MG Orally Twice a d ay [facility] Sivakumar Gómez Tramadol HCl as directed Orally Active 50 MG Orally every 6 ho urs [facility] Sivakumar Gómez Baclofen 1 tablet with food [...] Active 30 MG Orally Once a day [facility] Sivakumar Gómez Intravenous Immunogobin as dir ected [...] Reaction diarrhea Adverse Reaction Active 06/28/2020 Sivakumar Gómez Methotrexate Adverse Reaction elevated liver enzymes Adverse [...] Gómez Temperature Oral (F) 97.3 F 03/31/2020 Sivakumar Gómez Heart Rate 73 03/31/2020 Sivakumar Gómez [...] Gómez Temperature Oral (F) 98.1 F 04/15/2018 Sivakumar Gómez Heart Rate 78 04/15/2018 Sivakumar Gómez [...] Sivakumar Gómez Height 64 0 10/03/2017 Sivakumar Gómez Temperature Oral (F) 98.7 F 10/03/2017 Sivakumar Gómez Heart Rate 108 10/03/2017 Sivakumar Gómez Diastolic (mm Hg) 80 10/03/2017 Sivakumar Gómez Systolic (mm Hg) 142 10/03/2017 Sivakumar Gómez Weight 111 09/20/2017 Sivakumar Gómez Height [...] 07/30/2017 Sivakumar Gómez Heart Rate 84 07/30/2017 Sivakumar Gómez Diastolic (mm Hg) 82 07/30/2017 Sivakumar Gómez Systolic (mm Hg) 135 07/30/2017 Sivakumar Gómez Weight 112.5 05/31/2017 Sivakumar Gómez Height 64 0 05/31/2017 Sivakumar Gómez Temperature Oral (F) 97.9 F 05/31/2017 [...] Gómez Temperature Oral (F) 97.8 F 02/27/2017 Sivkaumar Gómez Heart Rate 80 02/27/2017 Sivakumar Gómez [...] Gómez Diastolic (mm Hg) 70 05/17/2016 Sivakumar Gómez Systolic (mm Hg) 120 05/17/2016 Sivakumar Gómez [...] Sivakumar Gómez Heart Rate 84 10/08/2014 Sivakumar Gmóez Diastolic (mm Hg) 78 10/08/2014 Sivakumar Gómez [...] Sivakumar Gómez Diastolic (mm Hg) 72 02/02/2014 Sivakumar Gómez Systolic (mm Hg) 118 02/02/2014 Sivakumar [...] Date Status Source MD Andie Raymondien Clarification [id number] 01/02/20 14 01/01/2014 MD Andie Perezien Clarification [id number] 01/02/20 14 01/01/2014 MD Andie Perezien Clarification [id number] 01/02/20 14 01/01/2014 MD Andie Perezien Clarification [id number] 01/02/20 14 01/01/2014 Sivakumar Gómez MD Ambien Clarification [id number] 01/02/20 14 01/01/2014 Sivakumar Gómez MD Ambien Clarification [id number] 01/02/20 14 01/01/2014 MD Andie Perezien Clarification [id number] 01/02/20 14 01/01/2014 Sivakumar Gómez MD Ambien Clarification [id number] 01/02/20 14 01/01/2014 Sivakumar Gómez MD Ambien Clarification [id number] 01/02/20 14 01/01/2014 Sivakumar Gómez MD Ambien Clarification [id number] 01/02/20 14 01/01/2014 Sivakumar Gómez MD Ambien Clarification [id number] 01/02/20 14 01/01/2014 Sivakumar Gómez MD Ambien Clarification [id number] 01/02/20 14 01/01/2014 Sivakumar Gómez MD Ambien Clarification [id number] 01/02/20 14 01/01/2014 Sivakumar Gómez MD Ambien Clarification [id number] 01/02/20 14 01/01/2014 MD Andie Perezien Clarification [id number] 01/02/20 14 01/01/2014 MD Andie Perezien Clarification [id number] 01/02/20 14 01/01/2014 MD Andie Perezien Clarification [id number] 01/02/20 14 01/01/2014 MD Andie Perezien Clarification [id number] 01/02/20 14 01/01/2014 MD Andie Perezien Clarification [id number] 01/02/20 14 01/01/2014 MD Andie Perezien Clarification [id number] 01/02/20 14 01/01/2014 MD Andie Perezien Clarification [id number] 01/02/20 14 01/01/2014 MD Andie Perezien Clarification [id number] 01/02/20 14 01/01/2014 MD Andie Perezien Clarification [id number] 01/02/20 14 01/01/2014 MD Andie Perezien Clarification [id number] 01/02/20 14 01/01/2014 Sivakumar Gómez MD Ambien Clarification [id number] 01/02/20 14 01/01/2014 MD Andie Perezien Clarification [id number] 01/02/20 14 01/01/2014 MD Andie Perezien Clarification [id number] 01/02/20 14 01/01/2014 MD Andie Perezien Clarification [id number] 01/02/20 14 01/01/2014 MD Andie Perezien Clarification [id number] 01/02/20 14 01/01/2014 Sivakumar Gómez MD Ambien Clarification [id number] 01/02/20 14 01/01/2014 MD Andie Perezien Clarification [id number] 01/02/20 14 01/01/2014 Sivakumar Gómez MD Ambien Clarification [id number] 01/02/20 14 01/01/2014 Sivakumar Gómez MD Ambien Clarification [id number] 01/02/20 14 01/01/2014 MD Andie Perezien Clarification [id number] 01/02/20 14 01/01/2014 Sivakumar Gómez MD Ambien Clarification [id number] 01/02/20 14 01/01/2014 MD Andie Perezien Clarification [id number] 01/02/20 14 01/01/2014 MD Andie Perezien Clarification [id number] 01/02/20 14 01/01/2014 MD Andie Perezien Clarification [id number] 01/02/20 14 01/01/2014 MD Andie Perezien Clarification [id number] 01/02/20 14 01/01/2014 MD Andie Perezien Clarification [id number] 01/02/20 14 01/01/2014 MD Andie Perezien Clarification [id number] 01/02/20 14 01/01/2014 MD Andie Perezien Clarification [id number] 01/02/20 14 01/01/2014 MD Andie Perezien Clarification [id number] 01/02/20 14 01/01/2014 Sivakumar Gómez MD discuss treatment [id number] 01/02/20 14 01/01/2014 Sivakumar Gómez MD discuss treatment [id number] 01/02/20 14 01/01/2014 Sivakumar Gómez MD discuss treatment [id number] 01/02/20 14 01/01/2014 Sivakumar Gómez MD discuss treatment [id number] 01/02/20 14 01/01/2014 Sivakumar Gómez MD discuss treatment [id number] 01/02/20 14 01/01/2014 Sivakumar Gómez MD discuss treatment [id number] 01/02/20 14 01/01/2014 Sivakumar Gómez MD discuss treatment [id number] 01/02/20 14 01/01/2014 Sivakumar Gómez MD discuss treatment [id number] 01/02/20 14 01/01/2014 Sivakumar Gómez MD discuss treatment [id number] 01/02/20 14 01/01/2014 Sivakumar Gómez MD discuss treatment [id number] 01/02/20 14 01/01/2014 Sivakumar Gómez MD discuss treatment [id number] 01/02/20 14 01/01/2014 Sivakumar Gómez MD discuss treatment [id number] 01/02/20 14 01/01/2014 Sivakumar Gómez MD discuss treatment [id number] 01/02/20 14 01/01/2014 Sivakumar Gómez MD discuss treatment [id number] 01/02/20 14 01/01/2014 Sivakumar Gómez MD discuss treatment [id number] 01/02/20 14 01/01/2014 Sivakumar Gómez MD discuss treatment [id number] 01/02/20 14 01/01/2014 Sivakumar Gómez MD discuss treatment [id number] 01/02/20 14 01/01/2014 Sivakumar Gómez MD discuss treatment [id number] 01/02/20 14 01/01/2014 Sivakumar Gómez MD discuss treatment [id number] 01/02/20 14 01/01/2014 Sivakumar Gómez MD discuss treatment [id number] 01/02/20 14 01/01/2014 Sivakumar Gómez MD discuss treatment [id number] 01/02/20 14 01/01/2014 Sivakumar Gómez MD discuss treatment [id number] 01/02/20 14 01/01/2014 Sivakumar Gómez MD discuss treatment [id number] 01/02/20 14 01/01/2014 Sivakumar Gómez MD discuss treatment [id number] 01/02/20 14 01/01/2014 Sivakumar Gómez MD discuss treatment [id number] 01/02/20 14 01/01/2014 Sivakumar Gómez MD discuss treatment [id number] 01/02/20 14 01/01/2014 Sivakumar Gómez MD discuss treatment [id number] 01/02/20 14 01/01/2014 Sivakumar Gómez MD discuss treatment [id number] 01/02/20 14 01/01/2014 Sivakumar Gómez MD discuss treatment [id number] 01/02/20 14 01/01/2014 Sivakumar Gómez MD discuss treatment [id number] 01/02/20 14 01/01/2014 Sivakumar Gómez MD discuss treatment [id number] 01/02/20 14 01/01/2014 Sivakumar Gómez MD discuss treatment [id number] 01/02/20 14 01/01/2014 Sivakumar Gómez MD discuss treatment [id number] 01/02/20 14 01/01/2014 Sivakumar Gómez MD discuss treatment [id number] 01/02/20 14 01/01/2014 Sivakumar Gómez MD discuss treatment [id number] 01/02/20 14 01/01/2014 Sivakumar Gómez MD discuss treatment [id number] 01/02/20 14 01/01/2014 Sivakumar Gómez MD discuss treatment [id number] 01/02/20 14 01/01/2014 Sivakumar Gómez MD discuss treatment [id number] 01/02/20 14 01/01/2014 Sivakumar Gómez MD discuss treatment [id number] 01/02/20 14 01/01/2014 Sivakumar Gómez MD rituxan denied [id number] 01/05/20 14 01/04/2014 Sivakumar Gómez MD rituxan denied [id number] 01/05/20 14 01/04/2014 Sivakumar Gómez MD rituxan denied [id number] 01/05/20 14 01/04/2014 Sivakumar Gómez MD rituxan denied [id number] 01/05/20 14 01/04/2014 Sivakumar Gómez MD rituxan denied [id number] 01/05/20 14 01/04/2014 MD simone Perezxan denied [id number] 01/05/20 14 01/04/2014 MD simone Perezxan denied [id number] 01/05/20 14 01/04/2014 Sivakumar Gómez MD rituxan denied [id number] 01/05/20 14 01/04/2014 MD simone Perezxan denied [id number] 01/05/20 14 01/04/2014 Sivakumar Gómez MD rituxan denied [id number] 01/05/20 14 01/04/2014 Sivakumar Gómez MD rituxan denied [id number] 01/05/20 14 01/04/2014 Sivakumar Gómez MD rituxan denied [id number] 01/05/20 14 01/04/2014 Sivakumar Gómez MD rituxan denied [id number] 01/05/20 14 01/04/2014 MD simone Perezxan denied [id number] 01/05/20 14 01/04/2014 Sivakumar Gómez MD rituxan denied [id number] 01/05/20 14 01/04/2014 Sivakumar Gómez MD rituxan denied [id number] 01/05/20 14 01/04/2014 MD simone Perezxan denied [id number] 01/05/20 14 01/04/2014 MD simone Perezxan denied [id number] 01/05/20 14 01/04/2014 MD simone Perezxan denied [id number] 01/05/20 14 01/04/2014 MD simone Perezxan denied [id number] 01/05/20 14 01/04/2014 Sivakumar Gómez MD rituxan denied [id number] 01/05/20 14 01/04/2014 MD simone Perezxan denied [id number] 01/05/20 14 01/04/2014 Sivakumar Gómez MD rituxan denied [id number] 01/05/20 14 01/04/2014 MD simone Perezxan denied [id number] 01/05/20 14 01/04/2014 MD simone Perezxan denied [id number] 01/05/20 14 01/04/2014 Sivakumar Gómez MD rituxaarpan denied [id number] 01/05/20 14 01/04/2014 MD simone Perezxaarpan denied [id number] 01/05/20 14 01/04/2014 MD simone Perezxan denied [id number] 01/05/20 14 01/04/2014 MD simone Perezxan denied [id number] 01/05/20 14 01/04/2014 MD simone Perezxan denied [id number] 01/05/20 14 01/04/2014 MD simone Perezxan denied [id number] 01/05/20 14 01/04/2014 MD simone Perezxaarpan denied [id number] 01/05/20 14 01/04/2014 Sivakumar Gómez MD rituxaarpan denied [id number] 01/05/20 14 01/04/2014 Sivakumar Gómez MD rituxaarpan denied [id number] 01/05/20 14 01/04/2014 MD simone Perezxaarpan denied [id number] 01/05/20 14 01/04/2014 MD simone Perezxan denied [id number] 01/05/20 14 01/04/2014 Sivakumar Gómez MD rituxan denied [id number] 01/05/20 14 01/04/2014 Sivakumar Gómez MD rituxan denied [id number] 01/05/20 14 01/04/2014 Sivakumar Gómez MD rituxan denied [id number] 01/05/20 14 01/04/2014 Sivakumar Gómez MD rituxan denied [id number] 01/05/20 14 01/04/2014 Sivakumar Gómez MD rituxan denied [id number] 01/05/20 14 01/04/2014 Sivakumar Gómez MD rituxan denied [id number]-[id number] 01/05/20 14 01/04/2014 Sivakumar Gómez MD VIt D orders and [facility] [id number] 01/19/2014 01/19/2014 Sivakumar Gómez MD VIt D orders and [facility] [id number] 01/19/2014 01/19/2014 Sivakumar Gómez MD VIt D orders and [facility] [id number] 01/19/2014 01/19/2014 Sivakumar Gómez MD VIt D orders and [facility] [id number] 01/19/2014 01/19/2014 Sivakumar Gómez MD VIt D orders and [facility] [id number] 01/19/2014 01/19/2014 Sivakumar Gómez MD VIt D orders and [facility] [id number] 01/19/2014 01/19/2014 Sivakumar Gómez MD VIt D orders and [facility] [id number]-4181ub1v116s 01/19/2014 01/19/2014 Sivakumar Gómez MD VIt [facility] orders and [facility] [id number] 01/19/2014 01/19/2014 Sivakumar Gómez MD VIt D orders and [facility] [id number]-[id number] 01/19/2014 01/19/2014 Sivakumar Gómez MD VIt D orders and [facility] [id number] 01/19/2014 01/19/2014 Sivakumar Gómez MD VIt D orders and [facility] [id number] 01/19/2014 01/19/2014 Sivakumar Gómez MD VIt D orders and [facility] [id number] 01/19/2014 01/19/2014 Sivakumar Gómez MD VIt D orders and [facility] [id number] 01/19/2014 01/19/2014 Sivakumar Gómez MD VIt D orders and [facility] [id number] 01/19/2014 01/19/2014 Sivakumar Gómez MD VIt D orders and [facility] [id number] 01/19/2014 01/19/2014 Sivakumar Gómez MD VIt D orders and [facility] [id number]-[id number] 01/19/2014 01/19/2014 Sivakumar Gómez MD VIt D orders and [facility] [id number] 01/19/2014 01/19/2014 Sivakumar Gómez MD VIt D orders and [facility] [id number] 01/19/2014 01/19/2014 Sivkaumar Gómez MD VIt D orders and [facility] [id number] 01/19/2014 01/19/2014 Sivakumar Gómez MD VIt [facility] orders and [facility] [id number] 01/19/2014 01/19/2014 Sivakumar Gómez MD VIt D orders and [facility] [id number] 01/19/2014 01/19/2014 Sivakumar Gómez MD VIt [facility] orders and [facility] 3m2m6vz6-qw77-079t-bf30-z0jpngp0657g 01/19/2014 01/19/2014 Sivakumar Gómez MD VIt D orders and [facility] [id number] 01/19/2014 01/19/2014 Sivakumar Gómez MD VIt D orders and [facility] [id number] 01/19/2014 01/19/2014 Sivakumar Gómez MD VIt D orders and [facility] 50bo387u-uy9q-5c43-d807-2065w4mmb18z 01/19/2014 01/19/2014 Sivakumar Gómez MD VIt D orders and [facility] [id number] 01/19/2014 01/19/2014 Sivakumar Gómez MD VIt D orders and [facility] [id number] 01/19/2014 01/19/2014 Sivakumar Gómez MD VIt D orders and [facility] [id number] 01/19/2014 01/19/2014 Sivakumar Gómez MD VIt D orders and [facility] [id number] 01/19/2014 01/19/2014 Sivakumar Gómez MD VIt D orders and [facility] [id number] 01/19/2014 01/19/2014 Sivakumar Gómez MD VIt D orders and [facility] [id number] 01/19/2014 01/19/2014 Sivakumar Gómez MD VIt D orders and [facility] [id number] 01/19/2014 01/19/2014 Sivakumar Gómez MD VIt D orders and [facility] [id number] 01/19/2014 01/19/2014 Sivakumar Gómez MD VIt D orders and [facility] [id number] 01/19/2014 01/19/2014 Sivakumar Gómez MD VIt D orders and [facility] [id number] 01/19/2014 01/19/2014 Sivakumar Gómez MD VIt D orders and [facility] [id number] 01/19/2014 01/19/2014 Sivakumar Gómez MD VIt D orders and [facility] [id number]-5072-z0546d5a542a 01/19/2014 01/19/2014 Sivakumar Gómez MD [facility] orders and [facility] [id number]-59b4-9066-k12735hft59d 01/19/2014 01/19/2014 Sivakumar Gómez MD VIt [facility] orders and [facility] [id number]-n9b6-54623zmk0kr7 01/19/2014 01/19/2014 Sivakumar Gómez MD VIt D orders and [facility] 37e104ei-h722-3b92-d657-hx9r8u8j97u7 01/19/2014 01/19/2014 Sivakumar Gómez MD VIt [facility] orders and [facility] [id number]-6d4o-5vl5-vu10033yx177 01/19/2014 01/19/2014 Sivakumar Gómez MD fentanyl patch/synovial fluid 8m44z63m-4824-35uo-7h99-6560q63324s8 01/25/2014 01/25/2014 Sivakumar Gómez MD fentanyl patch/synovial fluid roo18iz2-v8c4-96ln-3787-1zn0226t105v 01/25/2014 01/25/2014 Sivakumar Gómez MD fentanyl patch/synovial fluid 583wz561-l5hc-0y0h-dm6b-ox37551i1i7q 01/25/2014 01/25/2014 Sivakumar Gómez MD fentanyl patch/synovial fluid 8370i8m2-923b-6t8d-9168-2cof0mb96470 01/25/2014 01/25/2014 Sivakumar Gómez MD fentanyl patch/synovial fluid 6r00wyl8-0311-93o0-28i2-817lli6751f1 01/25/2014 01/25/2014 Sivakumar Gómez MD fentanyl patch/synovial fluid 888c0g24-9709-53py-9zvf-67x67i16c613 01/25/2014 01/25/2014 Sivakumar Gmóez MD fentanyl patch/synovial fluid aji15yd8-yton-9rq9-637z-u8vu9id7n21v 01/25/2014 01/25/2014 Sivakumar Gómez MD fentanyl patch/synovial fluid 42us6424-5q24-688p-md76-72mh0890c0u9 01/25/2014 01/25/2014 Sivakumar Gómez MD fentanyl patch/synovial fluid 61kjgn6c-975a-3u29-tp4m-59462lp60yvb 01/25/2014 01/25/2014 Sivakumar Gómez MD fentanyl patch/synovial fluid 6cs49au7-9456-02b3-c323-4m318uxpyhu3 01/25/2014 01/25/2014 Sivakumar Gómez MD fentanyl patch/synovial fluid 91pf516o-b80e-8k97-eq32-9f3p024b6f84 01/25/2014 01/25/2014 Sivakumar Gómez MD fentanyl patch/synovial fluid 92574he9-4i22-7728-t896-c14k60959dw1 01/25/2014 01/25/2014 Sivakumar Gómez MD fentanyl patch/synovial fluid o78107q7-e6g1-6htv-15t3-c24325b6b520 01/25/2014 01/25/2014 Sivakumar Gómez MD fentanyl patch/synovial fluid p4fj07l2-8p61-1lx8-219t-r59nbf76y881 01/25/2014 01/25/2014 Sivakumar Gómez MD fentanyl patch/synovial fluid 48f14hc2-9zy0-8eye-0367-037l23nrl93s 01/25/2014 01/25/2014 Sivakumar Gómez MD fentanyl patch/synovial fluid r75i3o18-99pt-0mt3-wl16-0t3893x1p63j 01/25/2014 01/25/2014 Sivakumar Gómez MD fentanyl patch/synovial fluid 83te8g19-8352-5v91-y480-1276cmdm94jl 01/25/2014 01/25/2014 Sivakumar Gómez MD fentanyl patch/synovial fluid e228ps62-4376-76ak-o034-86ba948b5432 01/25/2014 01/25/2014 Sivakumar Gómez MD fentanyl patch/synovial fluid 5a4w428s-7t90-181z-2673-6k3r9d8v48wi 01/25/2014 01/25/2014 Sivakumar Gómez MD fentanyl patch/synovial fluid 7408k201-g7f5-12b8-un8g-if4dcp59l7my 01/25/2014 01/25/2014 Sivakumar Gómez MD fentanyl patch/synovial fluid 11e651w4-0503-872h-s8t2-ne2aw78muz22 01/25/2014 01/25/2014 Sivakumar Gómez MD fentanyl patch/synovial fluid 661x2460-v5hx-265p-z342-zv7uqleor68k 01/25/2014 01/25/2014 Sivakumar Gómez MD fentanyl patch/synovial fluid 13qe7d62-9260-5033-p05e-c404b12l085x 01/25/2014 01/25/2014 Sivakumar Gómez MD fentanyl patch/synovial fluid 264k0f0r-8364-6lxl-8no7-wr1352400075 01/25/2014 01/25/2014 Sivakumar Gómez MD fentanyl patch/synovial fluid 8bu07v26-k0od-32w0-940y-w8969080a5p8 01/25/2014 01/25/2014 Sivakumar Gómez MD fentanyl patch/synovial fluid l22jf92i-12n0-1299-j34m-pc4l52n4165d 01/25/2014 01/25/2014 Sivakumar Gómez MD fentanyl patch/synovial fluid 8751e046-90za-97z7-6i83-p2lc042ad688 01/25/2014 01/25/2014 Sivakumar Gómez MD fentanyl patch/synovial fluid 64633766-a154-3fh6-y460-3ag0fcx2353k 01/25/2014 01/25/2014 Sivakumar Gómez MD fentanyl patch/synovial fluid 74l8uhu5-921p-47c6-o706-vom12u747265 01/25/2014 01/25/2014 Sivakumar Gómez MD fentanyl patch/synovial fluid yk908g7b-5r6v-6715-639q-v2x448b82l18 01/25/2014 01/25/2014 Sivakumar Gómez MD fentanyl patch/synovial fluid 18jc97c6-b11f-26j7-9n25-q88e76n98r4z 01/25/2014 01/25/2014 Sivakumar Gómez MD fentanyl patch/synovial fluid 48j0836p-c293-3745-1ok8-4821z9i358y3 01/25/2014 01/25/2014 Sivakumar Gómez MD fentanyl patch/synovial fluid 96e73mtt-1o8p-3fj9-h865-600pg156504u 01/25/2014 01/25/2014 Sivakumar Gómez MD fentanyl patch/synovial fluid r2l20hlr-728t-1qd5-k290-2mces4t2f0b4 01/25/2014 01/25/2014 Sivakumar Gómez MD fentanyl patch/synovial fluid w44s3f24-9pyj-7r42-wr40-21n4myz3wni1 01/25/2014 01/25/2014 Sivakumar Gómez MD fentanyl patch/synovial fluid xk118383-kam6-73sm-0o1p-i29800wh08g3 01/25/2014 01/25/2014 Sivakumar Gómez MD fentanyl patch/synovial fluid d07447rf-2587-3rb5-na4s-3p39tq4l0113 01/25/2014 01/25/2014 Sivakumar Gómez MD fentanyl patch/synovial fluid 6t22d2sv-6919-8217-66ze-88508n2339up 01/25/2014 01/25/2014 Sivakumar Gómez MD fentanyl patch/synovial fluid 84le7446-020b-8834-n3u8-5tus6g73903g 01/25/2014 01/25/2014 Sivakumar Gómez MD fentanyl patch/synovial fluid 2y570n8i-75o1-8bt2-b58d-fsf05564u9p1 01/25/2014 01/25/2014 Sivakumar Gómez MD synovial fluid leaking from left elbow j8ido2w9-y197-3n14-k847-9h2061739859 02/02/2014 02/02/2014 Sivakumar Gómez MD synovial fluid leaking from left elbow 7e321239-p1lt-590q-r623-78yue717715n 02/02/2014 02/02/2014 Sivakumar Gómez MD synovial fluid leaking from left elbow 6pf24h9a-z1io-3x2z-en0c-2k37z097v5m5 02/02/2014 02/02/2014 Sivakumar Gómez MD synovial fluid leaking from left elbow 9558sdd7-u735-7e17-c6f0-qh5l9wn7um2r 02/02/2014 02/02/2014 Sivakumar Gómez MD synovial fluid leaking from left elbow j34c8ff1-83v2-4696-4j05-7228085a960c 02/02/2014 02/02/2014 Sivakumar Gómez MD synovial fluid leaking from left elbow 40031411-a226-3868-530o-f184c9b15163 02/02/2014 02/02/2014 Sivakumar Gómez MD synovial fluid leaking from left elbow 46d5r0wg-834v-496b-4183-01nq997gna0w 02/02/2014 02/02/2014 Sivakumar Gómez MD synovial fluid leaking from left elbow mwshn8g4-of15-8173-kb2p-0z716l562755 02/02/2014 02/02/2014 Sivakumar Gómez MD synovial fluid leaking from left elbow c9x39kf2-6w41-07d7-q7kc-q71262451s11 02/02/2014 02/02/2014 Sivakumar Gómez MD synovial fluid leaking from left elbow 0w4v565c-4z57-5f48-2v92-yhx26s08q3tw 02/02/2014 02/02/2014 Sivakumar Gómez MD synovial fluid leaking from left elbow 7n5289t4-j649-2474-z785-x28114r4663k 02/02/2014 02/02/2014 Sivakumar Gómez MD synovial fluid leaking from left elbow 86pxz92e-0hbh-534z-7v23-38p929ts87y6 02/02/2014 02/02/2014 Sivakumar Gómez MD synovial fluid leaking from left elbow kxfzqey3-84bs-0225-9371-4u1x10x370d3 02/02/2014 02/02/2014 Sivakumar Gómez MD synovial fluid leaking from left elbow 625602fp-p56y-31b7-816v-qsk1y75675r4 02/02/2014 02/02/2014 Sivakumar Gómez MD synovial fluid leaking from left elbow wgb85j8i-to7x-5b55-8194-5v9v6tz8716x 02/02/2014 02/02/2014 Sivakumar Gómez MD synovial fluid leaking from left elbow 67f10414-jv7d-33l1-qbad-i63p7o7sdt80 02/02/2014 02/02/2014 Sivakumar Gómez MD synovial fluid leaking from left elbow e634ou6t-lt5l-1h1f-0u20-o153287e3h7e 02/02/2014 02/02/2014 Sivakumar Gómez MD synovial fluid leaking from left elbow n5z3419q-i87x-190w-5m96-c3u12p7l4115 02/02/2014 02/02/2014 Sivakumar Gómez MD synovial fluid leaking from left elbow p19n94z1-xx21-08gc-2u72-m6sr57l1l985 02/02/2014 02/02/2014 Sivakumar Gómez MD synovial fluid leaking from left elbow z7u272jx-7s5y-9m3t-0800-7j3ro8n76796 02/02/2014 02/02/2014 Sivakumar Gómez MD synovial fluid leaking from left elbow se7b1c7a-98g4-0677-ri1r-940d07d5t157 02/02/2014 02/02/2014 Sivakumar Gómez MD synovial fluid leaking from left elbow 7kohen1k-0267-1q4z-m704-42kh9w92rt48 02/02/2014 02/02/2014 Sivakumar Gómez MD synovial fluid leaking from left elbow o194t7a9-w2k8-5qe2-860u-1385w08yo2gg 02/02/2014 02/02/2014 Sivakumar Gómez MD synovial fluid leaking from left elbow dv953quq-0y52-6qe5-2ch7-2p990w41g786 02/02/2014 02/02/2014 Sivakumar Gómez MD synovial fluid leaking from left elbow 66110u16-0m0h-79kj-040r-3o417j44j3f2 02/02/2014 02/02/2014 Sivakumar Gómez MD synovial fluid leaking from left elbow w47541n7-74hj-9629-017p-482129gk90f6 02/02/2014 02/02/2014 Sivakumar Gómez MD synovial fluid leaking from left elbow npr0n93s-oa6p-0r5d-60xp-67q788n54rze 02/02/2014 02/02/2014 Sivakumar Gómez MD synovial fluid leaking from left elbow y3900492-xfon-1t21-8x79-s4478bvy30x1 02/02/2014 02/02/2014 Sivakumar Gómez MD synovial fluid leaking from left elbow lo7fp744-7113-6y19-4s71-ud24165a821i 02/02/2014 02/02/2014 Sivakumar Gómez MD synovial fluid leaking from left elbow jlq07ea5-tg2j-3x60-871e-8i01of7w0hf1 02/02/2014 02/02/2014 Sivakumar Gómez MD synovial fluid leaking from left elbow 10i0eux2-3mst-3142-az45-6177d50n3i17 02/02/2014 02/02/2014 Sivakumar Gómez MD synovial fluid leaking from left elbow u5vrg609-9ad7-5d47-77sc-hs1if0724l30 02/02/2014 02/02/2014 Sivakumar Gómez MD synovial fluid leaking from left elbow 434gcepd-767f-3b258l53-n1u9-p04v2l4296sz 02/02/2014 02/02/2014 Sivakumar Gómez MD synovial fluid leaking from left elbow 3ip5h21y-j123-942d-h5l2-450878l611s7 02/02/2014 02/02/2014 Sivakumar Gómez MD synovial fluid leaking from left elbow t7603177-06jk-4eo4-x86n-u958064h2502 02/02/2014 02/02/2014 Sivakumar Gómez MD synovial fluid leaking from left elbow nis53004-1b41-4re9-328m-tj5n59281o48 02/02/2014 02/02/2014 Sivakumar Gómez MD synovial fluid leaking from left elbow lbg2y66h-pk53-6ca1-3ec2-3882f23044bo 02/02/2014 02/02/2014 Sivakumar Gómez MD synovial fluid leaking from left elbow 8kog6b69-1825-26x3-0982-x965x15869s0 02/02/2014 02/02/2014 Sivakumar Gómez MD synovial fluid leaking from left elbow 44484409-7655-8539-5i43-s9717c84eg03 02/02/2014 02/02/2014 Sivakumar Gómez MD fentanyl patch e0wesd43-n696-4331-s808-9746140t4362 02/27/20 14 02/26/2014 Sivakumar Gómez MD fentanyl patch jx6e318g-357f-45d1-yel1-0r02z6205622 02/27/20 14 02/26/2014 Sivakumar Gómez MD fentanyl patch ue7mez38-30d6-6sg9-d9et-58g990q3gq61 02/27/20 14 02/26/2014 Sivakumar Gómez MD fentanyl patch 0rfg68y9-38l6-043b-33l1-8c8438t4228z 02/27/20 14 02/26/2014 Sivakumar Gómez MD fentanyl patch 7bh0i82w-6d17-5922-n3g5-y167q8x5a166 02/27/20 14 02/26/2014 Sivakumar Gómez MD fentanyl patch 7040464h-5088-6211-t316-ll493n07o855 02/27/20 14 02/26/2014 Sivakumar Gómez MD fentanyl patch t484619j-j162-4c44-c1l9-b3j86q016c09 02/27/20 14 02/26/2014 Sivakumar Gómez MD fentanyl patch 2h9v134g-55j6-29z2-2779-1988h3pi91d3 02/27/20 14 02/26/2014 Sivakumar Gómez MD fentanyl patch 038he388-3v6k-5dvt-078h-93s5y4v7792m 02/27/20 14 02/26/2014 Sivakumar Gómez MD fentanyl patch 972x21uj-0e37-747c-w289-00p47n03k782 02/27/20 14 02/26/2014 Sivakumar Gómez MD fentanyl patch 89574831-91z0-1012-17id-c706x6igir8i 02/27/20 14 02/26/2014 Sivakumar Gómez MD fentanyl patch n024794q-eq85-0u9w-b678-b8x9a7d79us2 02/27/20 14 02/26/2014 Sivakumar Gómez MD fentanyl patch b59717wu-h4i3-94p4-u975-7d761869on00 02/27/20 14 02/26/2014 Sivakumar Gómez MD fentanyl patch 9kw5fye2-405m-7430-f934-7952hv9sh47h 02/27/20 14 02/26/2014 Sivakumar Gómez MD fentanyl patch cffsll5q-yptt-365p-0cqv-l8o3t0w9lzj1 02/27/20 14 02/26/2014 Sivakumar Gómez MD fentanyl patch 16wu0x03-y6n9-58us-n66a-0uzq95x7k624 02/27/20 14 02/26/2014 Sivakumar Gómez MD fentanyl patch 84320n8s-e899-187o-x248-1d898z64g2ek 02/27/20 14 02/26/2014 Sivakumar Gómez MD fentanyl patch 88fw4941-8e14-764w-89m3-61p08846s1d3 02/27/20 14 02/26/2014 Sivakumar Gómez MD fentanyl patch 25an12er-ndi7-23t8-006n-253n3pa4f82t 02/27/20 14 02/26/2014 Sivakumar Gómez MD fentanyl patch cs280c14-6650-1867-rx19-2561p10a2302 02/27/20 14 02/26/2014 Sivakumar Gómez MD fentanyl patch o19887o3-8a84-92kq-r731-183924p4g439 02/27/20 14 02/26/2014 Sivakumar Gómez MD fentanyl patch 13l11687-6p56-90d0-3n3i-tc7728r91pt4 02/27/20 14 02/26/2014 Sivakumar Gómez MD fentanyl patch 38183646-c8zv-8887-59tr-861mqe590p0k 02/27/20 14 02/26/2014 Sivakumar Gómez MD fentanyl patch r5m3jvwy-7u74-640v-yx46-0w6c1w1vk42n 02/27/20 14 02/26/2014 Sivakumar Gómez MD fentanyl patch ha0u7179-7sf1-3l83-66mn-fyw5am009685 02/27/20 14 02/26/2014 Sivakumar Gómez MD fentanyl patch v78d95a2-5396-32c1-ml13-32k1j19u6316 02/27/20 14 02/26/2014 Sivakumar Gómez MD fentanyl patch 4425088g-4d79-27zu-9n79-v56w864q9326 02/27/20 14 02/26/2014 Sivakumar Gómez MD fentanyl patch 5se88p72-1572-8g6z-3sp9-05jvf80io510 02/27/20 14 02/26/2014 Sivakumar Gómez MD fentanyl patch ujwd3627-9t44-8642-a02q-37nc6jm45u24 02/27/20 14 02/26/2014 Sivakumar Gómez MD fentanyl patch 8g7q48cb-6plp-00d7-710s-4m6a0ny02909 02/27/20 14 02/26/2014 Sivakumar Gómez MD fentanyl patch og27q22l-9us7-04r8-2gm2-77h5gip9z97a 02/27/20 14 02/26/2014 Sivakumar Gómez MD fentanyl patch 2196b0fc-r77j-8p2z-822e-9fe4fm0rk420 02/27/20 14 02/26/2014 Sivakumar Gómez MD fentanyl patch 7t26b700-166b-1zgn-p4uf-4854627o471e 02/27/20 14 02/26/2014 Sivakumar Gómez MD fentanyl patch 64y67j33-0679-7922-9581-j3175d1m0t39 02/27/20 14 02/26/2014 Sivakumar Gómez MD fentanyl patch 13793qv8-3k48-8167-82i2-389p7xyl41uh 02/27/20 14 02/26/2014 Sivakumar Gómez MD fentanyl patch 190v2143-c68g-9043-e3b9-k5154063l639 02/27/20 14 02/26/2014 Sivakumar Gómez MD fentanyl patch 8piyfl97-ys70-6ju0-8e28-s1697f584r0e 02/27/20 14 02/26/2014 Sivakumar Gómez MD fentanyl patch u48b7861-79l2-9s99-5686-nwpg59229amo 02/27/20 14 02/26/2014 Sivakumar Gómez MD fentanyl patch 49193g77-c7h8-21fh-14i3-jn2pzt686en6 02/27/20 14 02/26/2014 Sivakumar Gómez MD 2 mth f/u 1442k42p-fwun-3r51-rm03-3z55r42v8hm1 03/03/20 14 03/03/2014 Sivakumar Gómez MD 2 mth f/u 920d7698-1s8x-443k-8s82-s4a24j859v17 03/03/20 14 03/03/2014 Sivakumar Gómez MD 2 mth f/u 89e3iahu-c388-47h5-kv34-m6m755564y39 03/03/20 14 03/03/2014 Sivakumar Gómez MD 2 mth f/u iiz429j4-l7of-9049-xiv1-5k96qeeo22ao 03/03/20 14 03/03/2014 Sivakumar Gómez MD 2 mth f/u 8pp29600-12gf-36wr-g517-96da43300z28 03/03/20 14 03/03/2014 Sivakumar Gómez MD 2 mth f/u x86dq170-zxi4-40j5-edn1-011vn02si8e4 03/03/20 14 03/03/2014 Sivakumar Gómez MD 2 mth f/u eld3yz4s-2b79-75o4-p558-h57n13l88647 03/03/20 14 03/03/2014 Sivakumar Gómez MD 2 mth f/u 4kl672ai-68w9-865e-85wk-561kna9d04jh 03/03/20 14 03/03/2014 Sivakumar Gómez MD 2 mth f/u 99h4zm7p-49e3-780n-7stu-75li5j0d981z 03/03/20 14 03/03/2014 Sivakumar Gómez MD 2 mth f/u p17yn91p-8016-33r6-jls4-u35889e811cq 03/03/20 14 03/03/2014 Sivakumar Gómez MD 2 mth f/u 478o82x2-4423-8035-406w-aja58yr54s8p 03/03/20 14 03/03/2014 Sivakumar Gómez MD 2 mth f/u 698o7p3w-56nm-4d6q-a7w3-v2ze262d7473 03/03/20 14 03/03/2014 Sivakumar Gómez MD 2 mth f/u 4u234v5t-1y04-79lb-7743-mch344e53r6e 03/03/20 14 03/03/2014 Sivakumar Gómez MD 2 mth f/u mlocx876-u571-88wq-71s6-6m2cq928swcm 03/03/20 14 03/03/2014 Sivakumar Gómez MD 2 mth f/u t684nkrr-c3dc-1956-ot5x-q335501f04q7 03/03/20 14 03/03/2014 Sivakumar Gómez MD 2 mth f/u 6v32x227-zn3p-1924-295i-3e64e02cm4go 03/03/20 14 03/03/2014 Sivakumar Gómez MD 2 mth f/u anp39q4w-6i1b-5x4d-0802-4hkh5s12k44h 03/03/20 14 03/03/2014 Sivkaumar Gómez MD 2 mth f/u d59306g5-p890-4855-s288-t8a16b067p80 03/03/20 14 03/03/2014 Sivakumar Gómez MD 2 mth f/u 668rh10t-1ki4-54h4-8d2q-i399g1q2pp3m 03/03/20 14 03/03/2014 Sivakumar Gómez MD 2 mth f/u 48kq0d32-56w9-4wmt-mi95-3169dvc7328n 03/03/20 14 03/03/2014 Sivakumar Gómez MD 2 mth f/u 8rp038v4-n4y8-35j2-6fv4-1dd2rk0h7y05 03/03/20 14 03/03/2014 Sivakumar Gómez MD 2 mth f/u 62387kr4-c126-961h-36c0-4bl77h45pa34 03/03/20 14 03/03/2014 Sivakumar Gómez MD 2 mth f/u 9436cic5-1015-9783-x2u7-68d25q0kip12 03/03/20 14 03/03/2014 Sivakumar Gómez MD 2 mth f/u k51x5g98-b4y5-9am5-bpq2-17c2411r70t5 03/03/20 14 03/03/2014 Sivakumar Gómez MD 2 mth f/u 3100d3xo-44s9-5964-5x2d-19l0o5a15115 03/03/20 14 03/03/2014 Sivakumar Gómez MD 2 mth f/u 61777xm8-3499-7ri0-mcg4-4264997gka0y 03/03/20 14 03/03/2014 Sivakumar Gómez MD 2 mth f/u 05140h5l-25c1-534s-c388-v950ri875236 03/03/20 14 03/03/2014 Sivakumar Gómez MD 2 mth f/u 3q96ts64-xjt1-9l72-4b69-23awn2m3640b 03/03/20 14 03/03/2014 Sivakumar Gómez MD 2 mth f/u v48fnp98-dfer-3617-v4c3-41t9ph41g564 03/03/20 14 03/03/2014 Sivakumar Gómez MD 2 mth f/u 661kk9h1-e909-6503-36tp-3d90d3795mh8 03/03/20 14 03/03/2014 Sivakumar Gómez MD 2 mth f/u l4e37iec-673b-7n6a-pl51-380v5b75284n 03/03/20 14 03/03/2014 Sivakumar Gómez MD 2 mth f/u zfw82g48-0sc8-6gb9-dek1-4v8m416aazw2 03/03/20 14 03/03/2014 Sivakumar Gómez MD 2 mth f/u 239c38vg-w426-5yv8-4i4e-321u498f5793 03/03/20 14 03/03/2014 Sivakumar Gómez MD 2 mth f/u 71td10d7-z7r8-0dob-gpz9-040gw014w322 03/03/20 14 03/03/2014 Sivakumar Gómez MD 2 mth f/u 4kg52ou1-7f03-753d-t473-23yj900sx862 03/03/20 14 03/03/2014 Sivakumar Gómez MD 2 mth f/u 63va8ba5-3661-537l-g535-b6157ann7fq1 03/03/20 14 03/03/2014 Sivakumar Gómez MD 2 mth f/u k4s28c4z-54p6-93w3-lz09-57306929g1ls 03/03/20 14 03/03/2014 Sivakumar Gómez MD 2 mth f/u 66066ijr-o3wu-74b8-9bir-cc62h5214i40 03/03/20 14 03/03/2014 Sivakumar Gómez MD 2 mth f/u 9j7g0284-c7g3-66e4-eeim-qi76733mtie7 03/03/20 14 03/03/2014 Sivakumar Gómez MD REFILL FENTANYL t88a15n8-pmp0-5j3d-027a-e63d73x33d5z 03/30/20 14 03/30/2014 Sivakumar Gómez MD REFILL FENTANYL 6abs30j1-0c81-9499-2126-o08gc7744c45 03/30/20 14 03/30/2014 Sivakumar Gómez MD REFILL FENTANYL 2yn433uy-5258-933e-k907-729wlp45z87y 03/30/20 14 03/30/2014 Sivakumar Gómez MD REFILL FENTANYL 3s7b42mf-392x-12v0-f27u-16frc6j99wl5 03/30/20 14 03/30/2014 Sivakumar Gómez MD REFILL FENTANYL 80oi2332-95k3-05do-647u-37c7zo1100w7 03/30/20 14 03/30/2014 Sivakumar Gómez MD REFILL FENTANYL 39uw2s93-5bt5-2c2r-7l96-7jc68do87273 03/30/20 14 03/30/2014 Sivakumar Gómez MD REFILL FENTANYL d9d9t54r-317v-7ut6-p4c8-a6h07te2m4b4 03/30/20 14 03/30/2014 Sivakumar Gómez MD REFILL FENTANYL d4lz809p-10mw-7s25-8dz0-27zzs1469j3y 03/30/20 14 03/30/2014 Sivakumar Gómez MD REFILL FENTANYL -924c-4518-3i56-2253743j4w6f 03/30/20 14 03/30/2014 Sivakumar Gómez MD REFILL FENTANYL i0t1z35j-ymud-6te5-4276-3o5n8qqana3e 03/30/20 14 03/30/2014 Sivakumar Gómez MD REFILL FENTANYL [id number]-6t6vslp824zj 03/30/20 14 03/30/2014 iSvakumar Gómez MD REFILL FENTANYL w8hs2je8-5460-5fr8-ko4t-56bj5e83j04t 03/30/20 14 03/30/2014 Sivakumar Gómez MD REFILL FENTANYL 1i4rol57-oq21-9gu6-x95n-dz9p1f18q2fy 03/30/20 14 03/30/2014 Sivakumar Gómez MD REFILL FENTANYL 594p1ix7-d8b2-113u-7305-fa3798271a4q 03/30/20 14 03/30/2014 Sivakumar Gómez MD REFILL FENTANYL 1un7r813-p213-415e-h394-8e6a22kh6d0w 03/30/20 14 03/30/2014 Sivakumar Gómez MD REFILL FENTANYL [id number]697 03/30/20 14 03/30/2014 Sivakumar Gómez MD REFILL FENTANYL 16423hdj-5232-43w5-9qd2-w0vqb01185i2 03/30/20 14 03/30/2014 Sivakumar Gómez MD REFILL FENTANYL 4829r1k6-6126-17h5-oa68-s5776865i654 03/30/20 14 03/30/2014 Sivakumar Gómez MD REFILL FENTANYL 82955cg1-wu3l-2r73-8cq4-4600889z6901 03/30/20 14 03/30/2014 Sivakumar Gómez MD REFILL FENTANYL m844g448-0wrr-3o51-340g-nm4nd7w4k83d 03/30/20 14 03/30/2014 Sivakumar Gómez MD REFILL FENTANYL 207by765-7k59-06lx-ef7n-91a302923h46 03/30/20 14 03/30/2014 Sivakumar Gómez MD REFILL FENTANYL d2t238rx-s793-35h3-o3d2-4ecr39y2x0x5 03/30/20 14 03/30/2014 Sivakumar Gómez MD REFILL FENTANYL 723er6f8-222p-47q1-akt3-y000172759cd 03/30/20 14 03/30/2014 Sivakumar Gmóez MD REFILL FENTANYL 310128u5-e0nl-2k44-915j-hlz99877vyw4 03/30/20 14 03/30/2014 Sivakumar Gómez MD REFILL FENTANYL 68x817n3-2j5q-1029-63w0-02609t092au5 03/30/20 14 03/30/2014 Sivakumar Gómez MD REFILL FENTANYL dj4595ni-onez-0h07-874j-286jl5q5r1er 03/30/20 14 03/30/2014 Sivakumar Gómez MD REFILL FENTANYL c2069k9w-280v-8e59-q2j1-319vp65m1343 03/30/20 14 03/30/2014 Sivakumar Gómez MD REFILL FENTANYL wvb209y2-n024-3d5q-0h24-q1oq5t4w0f83 03/30/20 14 03/30/2014 Sivakumar Gómez MD REFILL FENTANYL l7ht7124-qe17-3lbj-k2ay-gvh031f48739 03/30/20 14 03/30/2014 Sivakumar Gómez MD REFILL FENTANYL 08040bv4-59vu-7n91-98xd-90qt438333m3 03/30/20 14 03/30/2014 Sivakumar Gómez MD REFILL FENTANYL [id number]-1a15-2596-lupi-luxt22125844 03/30/20 14 03/30/2014 Sivakumar Gómez MD REFILL FENTANYL s934o684-870k-89yi-6j51-hb98o57x72k5 03/30/20 14 03/30/2014 Sivakumar Gómez MD REFILL FENTANYL 31vi434b-n1b6-5609-41t5-65u982tx168d 03/30/20 14 03/30/2014 Sivakumar Gómez MD REFILL FENTANYL 574a9oj4-698q-7ab1-b2a8-713222vj0577 03/30/20 14 03/30/2014 Sivakumar Gómez MD REFILL FENTANYL 06tbalm6-5gp3-7f2k-x1d0-17y94qj0370k 03/30/20 14 03/30/2014 Sivakumar Gómez MD REFILL FENTANYL 40b3wy5i-z35j-93vy-61w5-ucel8774j7b7 03/30/20 14 03/30/2014 Sivakumar Gómez MD REFILL FENTANYL 8668wv13-450d-8z49-le58-89954f81dj94 03/30/20 14 03/30/2014 Sivakumar Gómez MD REFILL FENTANYL 2b425g40-7y3e-83w5-pish-79a2997t5521 03/30/20 14 03/30/2014 Sivakumar Gómez MD REFILL FENTANYL 6305k6kq-a534-41fu-90f8-21608903c7nv 03/30/20 14 03/30/2014 Sivakumar Gómez MD Abiluz refill g501hrel-5nq5-4d4y-5a1w-7db63i17azjh 04/24/20 14 04/24/2014 MD Leighton Perez refill a2d4r5yk-4by4-1csd-28yw-n6xpli5893g7 04/24/20 14 04/24/2014 Sivakumar Gómez MD Abiluz refill 21k83t31-7rf6-879q-h47i-4r7ilv71d077 04/24/20 14 04/24/2014 MD Leighton Perez refill [id number]-k86p-6i3c-9l89-9xqe110uk17f 04/24/20 14 04/24/2014 MD Leighton Perez refill bv5tuqmf-1ois-6779-45t7-34668159487l 04/24/20 14 04/24/2014 MD Leighton Perez refill q536w9k4-392n-49i5-6c4d-75t9273h5889 04/24/20 14 04/24/2014 MD Leighton Perez refill 56vm0m1z-a6z4-2p45-t82v-9q1q3926qllr 04/24/20 14 04/24/2014 MD Leighton Perez refill lfu336sy-ck5y-545e-m7b3-7lnq2b698h05 04/24/20 14 04/24/2014 MD Leighton Perez refill g137r572-1244-879w-2p0a-64y84774e85t 04/24/20 14 04/24/2014 MD Leighton Perez refill [id number]-df56-5h2w-q706-x6674d72e5kx 04/24/20 14 04/24/2014 Sivakumar Gómez MD Abiluz refill 0kk8390y-11py-3u26-46ok-08107x103i65 04/24/20 14 04/24/2014 Sivakumar Gómez MD Abiluz refill w2bi9nvp-d209-64a9-g9wg-e27638z0vwrh 04/24/20 14 04/24/2014 Sivakumar Gómez MD Abiluz refill [id number]-0053-1ps6-k5ht-dd52t8709g19 04/24/20 14 04/24/2014 MD Leighton Perez refill j04kfj16-4q0d-80bf-4374-a13dz89ad5o5 04/24/20 14 04/24/2014 MD Leighton Perez refill 5941i02g-10a1-3t8n-p3ei-s5l18910zka5 04/24/20 14 04/24/2014 MD Leighton Perez refill cq33lpk7-a485-81f0-q253-5i4hl07f901y 04/24/20 14 04/24/2014 MD Leighton Perez refill 5738f528-s60p-27sj-lxjj-0m65g12078qz 04/24/20 14 04/24/2014 MD Leighton Perez refill 90q38s63-9d0l-3i35-9023-y79y93ts1k98 04/24/20 14 04/24/2014 MD Leighton Perez refill 314o8o1z-400q-4w07-q8rc-73g6b8720245 04/24/20 14 04/24/2014 MD Leighton Perez refill 7013v8dy-wi9t-6d99-d16k-3m0ed4wt72t2 04/24/20 14 04/24/2014 MD Leighton Perez refill [id number]-a6o1-6384-n44l-n659p0t88657 04/24/20 14 04/24/2014 MD Leighton Perez refill nz2912id-g152-1161-t35m-idmi5d35c604 04/24/20 14 04/24/2014 MD Leighton Perez refill 93630zm1-e313-48zu-934u-jsofcssf9va5 04/24/20 14 04/24/2014 MD Leighton Perez refill [id number]-fo56-13q9-yv20-akc6d71bb93h 04/24/20 14 04/24/2014 MD Leighton Perez refill 7038fdif-019v-3q321s51-e76c-wm0ea5mg5e0i 04/24/20 14 04/24/2014 MD Leighton Perez refill 468n2438-cecl-513b-pj81-m617a3029w5x 04/24/20 14 04/24/2014 MD Leighton Perez refill ei22n32i-8f2c-69k9-a61h-6w474x5h2a67 04/24/20 14 04/24/2014 MD Leighton Perez refill 2z881i8a-3tfr-1151-61kg-1544qbl59908 04/24/20 14 04/24/2014 MD Leighton Perez refill 4r4125x7-g884-2474-i159-u157c52r0zc4 04/24/20 14 04/24/2014 MD Leighton Perez refill 1u00xrf9-obb9-32q8-a51j-4wv4o7r16733 04/24/20 14 04/24/2014 Sivakumar Gómez MD Abien refill [id number]-k416-r3p76104ob73 04/24/20 14 04/24/2014 Sivakumar Gómez MD Abien refill [id number]-4b626i20541f 04/24/20 14 04/24/2014 Sivakumar Gómez MD Abien refill [id number]-q84c-6513-kkzb-05654r9p4owe 04/24/20 14 04/24/2014 Sivakumar Gómez MD Abien refill [id number]-iz7a-[id number] 04/24/20 14 04/24/2014 Sivakumar Gómez MD fentanyl refill 17s8g8lp-y158-598y-hz07-u195e446dgf2 04/26/20 14 04/26/2014 Sivakumar Gómez MD fentanyl refill 4q9es645-92es-3624-xt7t-2bo308u8l7in 04/26/20 14 04/26/2014 Sivakumar Gómez MD fentanyl refill 5x5ws04p-m868-8g6w-82r2-44zl8zr2016r 04/26/20 14 04/26/2014 Sivakumar Gómez MD fentanyl refill ukd5t1q7-2y16-4z07-9a36-nf22s432rldq 04/26/20 14 04/26/2014 Sivakumar Gómez MD fentanyl refill [id number]-[id number] 04/26/20 14 04/26/2014 Sivakumar Gómez MD fentanyl refill 76s99yyc-o166-3258-4bo7-97716l0j6p14 04/26/20 14 04/26/2014 Sivakumar Gómez MD fentanyl refill 9um191x1-59j0-62iz-m536-55h3jv983834 04/26/20 14 04/26/2014 Sivakumar Gómez MD fentanyl refill 33ve7652-f537-2mqf-v46z-10cj9ih6r239 04/26/20 14 04/26/2014 Sivakumar Gómez MD fentanyl refill w6496ei4-549e-873w-x9u5-0e18p2r57231 04/26/20 14 04/26/2014 Sivakumar Gómez MD fentanyl refill 98h82m47-3g13-64y0-7p24-8l61u96p191u 04/26/20 14 04/26/2014 Sivakumar Gómez MD fentanyl refill 4t6405ln-bn7a-96d1-1431-632qu598704p 04/26/20 14 04/26/2014 Sivakumar Gómez MD fentanyl refill kp399hg5-mk62-62s8-op05-m5y13jq375d1 04/26/20 14 04/26/2014 Sivakumar Gómez MD fentanyl refill dv947lte-qx56-4476-9451-pv78604nl3m5 04/26/20 14 04/26/2014 Sivakumar Gómez MD fentanyl refill t3gm6h4y-8i4w-96sd-3gec-028esuc0fqa5 04/26/20 14 04/26/2014 Sivakumar Gómez MD fentanyl refill onz40qk0-7sj7-0423-hzt9-a2r0z3510503 04/26/20 14 04/26/2014 Sivakumar Gómez MD fentanyl refill 85ujqwc2-1h32-1409-t1x4-00f6w1q82zo6 04/26/20 14 04/26/2014 Sivakumar Gómez MD fentanyl refill 8433u24t-t3q5-0657-39i3-a854334ph27d 04/26/20 14 04/26/2014 Sivakumar Gómez MD fentanyl refill 20q69972-5248-12y7-2923-x2592vxkise0 04/26/20 14 04/26/2014 Sivakumar Gómez MD fentanyl refill 47227761-b7nw-5zyd-385o-mh433331c7z6 04/26/20 14 04/26/2014 Sivakumar Gómez MD fentanyl refill m17teo92-ns9f-72l6-p07l-j91n6s1564j2 04/26/20 14 04/26/2014 Sivakumar Gómez MD fentanyl refill 6h469084-y339-7n26-t494-2m06l7lzd484 04/26/20 14 04/26/2014 Sivakumar Gómez MD fentanyl refill x743i615-igfh-0358-b58g-r454pk0oli7f 04/26/20 14 04/26/2014 Sivakumar Gómez MD fentanyl refill 4b857f0o-7x13-7l81-0504-w6663e147738 04/26/20 14 04/26/2014 Sivakumar Gómez MD fentanyl refill 0chnu51w-jqe2-3d73-ez8f-4a43q22e91r2 04/26/20 14 04/26/2014 Sivakumar Gómez MD fentanyl refill n5n926hn-6l39-323i-f4xd-60328y786k26 04/26/20 14 04/26/2014 Sivakumar Gómez MD fentanyl refill s0kjk7m7-4v8u-8f72-o207-d9030vj27f08 04/26/20 14 04/26/2014 Sivakumar Gómez MD fentanyl refill mr655l13-5576-4agx-i4w3-9531796i4433 04/26/20 14 04/26/2014 Sivakumar Gómez MD fentanyl refill 6176d615-36q0-48m5-10w7-76nqz92j4sy7 04/26/20 14 04/26/2014 Sivakumar Gómez MD fentanyl refill 5204fm76-97sg-9ic6-z432-v3l9s3q99trr 04/26/20 14 04/26/2014 Sivakumar Gómez MD fentanyl refill q38w0c0k-8506-23h5-388b-6942bah5655v 04/26/20 14 04/26/2014 Sivakumar Gómez MD fentanyl refill l707427m-8u69-049o-9m96-98f919jx2jk6 04/26/20 14 04/26/2014 Sivakumar Gómez MD fentanyl refill h0mp87a9-e80k-6ug9-389g-m2tg8852h7j0 04/26/20 14 04/26/2014 Sivakumar Gómez MD fentanyl refill 9070vz6e-x4ww-23o6-aj70-d4y46540075g 04/26/20 14 04/26/2014 Sivakumar Gómez MD fentanyl refill 51129043-3s51-4u83-vtok-0794457f4z74 04/26/20 14 04/26/2014 Sivakumar Gómez MD REFILL 8q8vf832-2yjr-8q68-a621-30731h1n8uzu 06/02/20 14 06/02/2014 Sivakumar Gómez MD REFILL 1o399418-x77b-8o9i-ra91-733yn8yws59s 06/02/20 14 06/02/2014 Sivakumar Gómez MD REFILL 20v2a0e7-8294-9y80-i6qt-86740rf8q5vt 06/02/20 14 06/02/2014 Sivakumar Gómez MD REFILL q0ao101j-g076-6tnr-jpne-q7kb7vpo8s9s 06/02/20 14 06/02/2014 Sivakumar Gómez MD REFILL c11sv2al-4072-254l-h0v2-h4dq43y0r361 06/02/20 14 06/02/2014 Sivakumar Gómez MD REFILL 5j725x5d-w12b-638r-x728-15k9432kn08x 06/02/20 14 06/02/2014 Sivakumar Gómez MD REFILL ggtf61y6-u560-80u0-6cp0-w73i09jc31b2 06/02/20 14 06/02/2014 Sivakumar Gómez MD REFILL 2tq29qc3-3q43-57q5-qh78-63c43mg7c807 06/02/20 14 06/02/2014 Sivakumar Gómez MD REFILL 4g1o21oa-525i-0i94-43ve-791hecl7q5a2 06/02/20 14 06/02/2014 Sivakumar Gómez MD REFILL l5v4725x-z36f-8629-5evg-ry35sozp12nf 06/02/20 14 06/02/2014 Sivakumar Gómez MD REFILL 5de57bdc-58u1-891u-j0nf-e3b6p6xx9291 06/02/20 14 06/02/2014 Sivakumar Gómez MD REFILL 91r4nd3q-0x58-7s91-3895-4ux227x8118h 06/02/20 14 06/02/2014 Sivakumar Gómez MD REFILL 005q71a2-q6w3-983j-cfb4-nj2cly4vwd1b 06/02/20 14 06/02/2014 Sivakumar Gómez MD REFILL o30bp6uz-8775-46d3-x9yp-51f20u28765o 06/02/20 14 06/02/2014 Sivakumar Gómez MD REFILL 36p755g4-k245-398r-djp1-jz90674t9435 06/02/20 14 06/02/2014 Sivakumar Gómez MD REFILL j7164qvw-uz18-1551-m94z-a05rxh36s4ua 06/02/20 14 06/02/2014 Sivakumar Gómez MD REFILL n0y653y6-38j5-7v60-l547-09zsi8d8r371 06/02/20 14 06/02/2014 Sivakumar Gómez MD REFILL 66o8z6i1-4ebi-3dqv-s16x-s832k2s06432 06/02/20 14 06/02/2014 Sivakumar Gómez MD REFILL 1819k205-17jz-51tu-3638-08s86lw32ijj 06/02/20 14 06/02/2014 Sivakumar Gómez MD REFILL 49329m10-k923-2t42-99un-1wx136521405 06/02/20 14 06/02/2014 Sivakumar Gómez MD REFILL bd97n067-698j-71e7-m591-19n442t57j98 06/02/20 14 06/02/2014 Sivakumar Gómez MD REFILL 17249l48-5n8c-6z58-058i-d74o4822go6j 06/02/20 14 06/02/2014 Sivakumar Gómez MD REFILL 1k2p2v76-9000-039a-279i-3707517327fj 06/02/20 14 06/02/2014 Sivakumar Gómez MD REFILL mp5x78d9-7861-2550-3x96-rr34m608618e 06/02/20 14 06/02/2014 Sivakumar Gómez MD REFILL 5v2c37w1-l8o1-2cy1-o1j9-81jlx5070k8o 06/02/20 14 06/02/2014 Sivakumar Gómez MD REFILL yc7g1mr3-3r7t-70o3-u252-u6w98lg6e81y 06/02/20 14 06/02/2014 Sivakumar Gómez MD REFILL ty9326p4-0u44-0t51-b31s-b22h797n31gs 06/02/20 14 06/02/2014 Sivakumar Gómez MD REFILL 1mwm61wf-7557-20lz-i2q5-1p886478j9t4 06/02/20 14 06/02/2014 Sivakumar Gómez MD REFILL 7ndd254j-39et-9k5h-0nkh-ftg74t61w744 06/02/20 14 06/02/2014 Sivakumar Gómez MD REFILL na22m340-2xa8-8np3-8qb9-0i04w8c4a4v9 06/02/20 14 06/02/2014 Sivakumar Gómez MD REFILL 64r8ye21-ynau-6308-p299-qn874rm2khay 06/02/20 14 06/02/2014 Sivakumar Gómez MD REFILL 9s4ni431-1592-5zpk-h31b-35u1v8ze6ayy 06/02/20 14 06/02/2014 Sivakumar Gómez MD patient update 55zm2846-5m3s-6li1-0y35-b7ua06f073e9 06/09/20 14 06/09/2014 Sivakumar Gómez MD patient update z4t9629u-1732-171f-d02j-304h104b1u8n 06/09/20 14 06/09/2014 Sivakumar Gómez MD patient update 904ox5ro-m4mc-8e4i-5890-520wh85ur80j 06/09/20 14 06/09/2014 Sivakumar Gómez MD patient update qn21d3f7-82m4-334v-bof5-07ul2z7ws21h 06/09/20 14 06/09/2014 Sivakumar Gómez MD patient update 24a508k7-z050-0rf5-7x14-35p7g19vd03o 06/09/20 14 06/09/2014 Sivakumar Gómez MD patient update 3d3sdu51-29i9-6w5t-781r-00jj0d21165a 06/09/20 14 06/09/2014 Sivakumar Gómez MD patient update z3a55klr-ba99-0wi2-i173-d134501o40n2 06/09/20 14 06/09/2014 Sivakumar Gómez MD patient update 0h0n5ud9-spo8-7zt9-i7w8-ca40292n8182 06/09/20 14 06/09/2014 Sivakumar Gómez MD patient update 8n5366xe-k363-9f4w-b66u-75w2bx518497 06/09/20 14 06/09/2014 Sivakumar Gómez MD patient update 64772q7i-k7to-8nv7-k89h-af257qc3r68o 06/09/20 14 06/09/2014 Sivakumar Gómez MD patient update 5un2u72p-b885-1217-qfx0-3f9egn916m34 06/09/20 14 06/09/2014 Sivakumar Gómez MD patient update t0387dx9-156j-2e68-5d78-s0y8ecg5wl7q 06/09/20 14 06/09/2014 Sivakumar Gómez MD patient update cb75w5t3-57bq-4ry6-g393-2963426lm786 06/09/20 14 06/09/2014 Sivakumar Gómez MD patient update 8j1o7j92-74g4-2238-t63u-88817b04705y 06/09/20 14 06/09/2014 Sivakumar Gómez MD patient update p0g86273-v7a1-4297-5dxy-076807c76736 06/09/20 14 06/09/2014 Sivakumar Gómez MD patient update 3c35k4vz-ey58-04w1-ng9v-3zu705ke8eji 06/09/20 14 06/09/2014 Sivakumar Gómez MD patient update v522166i-jk7b-3d46-571q-2c06b9d4rjs7 06/09/20 14 06/09/2014 Sivakumar Gómez MD patient update 5k3n1bc9-5l9z-2xjv-0ype-2989s20905g9 06/09/20 14 06/09/2014 Sivakumar Gómez MD patient update rl957313-4ld1-9165-u138-ic8pdzd66op8 06/09/20 14 06/09/2014 Sivakumar Gómez MD patient update bv80r0wp-1716-8a51-jsu9-7zo8d351o1g1 06/09/20 14 06/09/2014 Sivakumar Gómez MD patient update se0i1p9g-u9yd-71f6-f5iq-818i8901472e 06/09/20 14 06/09/2014 Sivakumar Gómez MD patient update kf24oi36-y1s3-265m-adwt-8c7l4m186n57 06/09/20 14 06/09/2014 Sivakumar Gómez MD patient update 17h89z70-e30l-1c4s-f58m-514570i6773r 06/09/20 14 06/09/2014 Sivakumar Gómez MD patient update 9yh6t28v-4465-564g-cy33-sin1k7942672 06/09/20 14 06/09/2014 Sivakumar Gómez MD patient update 1lyghhf3-36w2-5v2s-sjy5-781yy750113o 06/09/20 14 06/09/2014 Sivakumar Gómez MD patient update 923qo972-3vm2-8v02-353n-0io200y7543b 06/09/20 14 06/09/2014 Sivakumar Gómez MD patient update 66e84634-085b-55qf-238k-5s5kf1j24k69 06/09/20 14 06/09/2014 Sivakumar Gómez MD patient update 015p6i12-268x-3se8-zr4v-t23ynr3r0s1n 06/09/20 14 06/09/2014 Sivakumar Gómez MD patient update 98i72431-5j54-5h2l-g063-op01za76760p 06/09/20 14 06/09/2014 Sivakumar Gómez MD patient update 1kg942c0-32s0-68k3-7389-z5ldyj55130f 06/09/20 14 06/09/2014 Sivakumar Gómez MD patient update u25a6k1c-zc6a-2hup-0cdh-5wn7bln93g79 06/09/20 14 06/09/2014 Sivakumar Gómez MD patient update 1c4127ma-lhj8-2778-1b47-s0gdqlz6062f 06/09/20 14 06/09/2014 Sivakumar Gómez MD [facility] 9mz8dlb9-3y10-9219-an06-77vj38kc0tzz 08/17/20 14 08/17/2014 Sivakumar Gómez MD [facility] vn8t9719-22u5-57a6-97i4-q9o68n7awj3g 08/17/20 14 08/17/2014 Sivakumar Gómez MD [facility] 4k929w6t-19nf-6010-e3f3-0czp75121400 08/17/20 14 08/17/2014 Sivakumar Gómez MD [facility] 6r1kn62j-4218-2jun-58x0-3m145139772j 08/17/20 14 08/17/2014 Sivakumar Gómez MD [facility] 6bqh5ac0-79t3-2wv8-9j09-bmqf51v78xf4 08/17/20 14 08/17/2014 Sivakumar Gómez MD [facility] 84092e67-66p3-8c4e-53p1-n83pz45zk793 08/17/20 14 08/17/2014 Sivakumar Gómez MD [facility] 897p1603-582b-0f8q-nkr0-86tlyo903b5z 08/17/20 14 08/17/2014 Sivakumar Gómez MD [facility] 4446kt04-4x43-815e-28q7-255p7635921z 08/17/20 14 08/17/2014 Sivakumar Gómez MD [facility] un0zy88f-pzt0-6c25-s18t-2u0w3307wf78 08/17/20 14 08/17/2014 Sivakumar Gómez MD [facility] 2811cc57-11v6-731s-305v-2087l6841tk9 08/17/20 14 08/17/2014 Sivakumar Gómez MD [facility] 17463ext-82p7-4u9b-s441-d71xkfk92691 08/17/20 14 08/17/2014 Sivakumar Gómez MD [facility] 30luu7o2-swb3-46x2-t865-9zc2919p6985 08/17/20 14 08/17/2014 Sivakumar Gómez MD [facility] o1xo0155-776e-332b-x16z-47870p793864 08/17/20 14 08/17/2014 Sivakumar Gómez MD [facility] 59o0n97x-vs8t-3800-6jh1-0v37p1da69ka 08/17/20 14 08/17/2014 Sivakumar Gómez MD [facility] 46o8tb83-4917-2679-33vq-63323a1te5bb 08/17/20 14 08/17/2014 Sivakumar Gómez MD [facility] 0k35v0lk-4t96-3p8e-6una-37h42i7jh20r 08/17/20 14 08/17/2014 Sivakumar Gómez MD [facility] o11mb88f-3753-445u-n771-z93916529w77 08/17/20 14 08/17/2014 Sivakumar Gómez MD [facility] 79041mp9-4f7s-5f10-n464-9fw9q6038h4g 08/17/20 14 08/17/2014 Sivakumar Gómez MD [facility] 1g7e69s7-po2z-3076-7o73-4azj9q43072m 08/17/20 14 08/17/2014 Sivakumar Gómez MD [facility] 3368b792-9g28-85n9-6019-8shb597970at 08/17/20 14 08/17/2014 Sivakumar Gómez MD [facility] yk4c0vpw-9em8-315w-3u1c-65820dmwhle7 08/17/20 14 08/17/2014 Sivakumar Gómez MD [facility] x260244r-oe2n-1l89-3s0e-5a33zd8z6e7x 08/17/20 14 08/17/2014 Sivakumar Gómez MD [facility] 26k2f288-1420-439s-8d92-o12o03h961ev 08/17/20 14 08/17/2014 Sivakumar Gómez MD [facility] 559f7914-7411-7pnm-m1f6-x6264111ef55 08/17/20 14 08/17/2014 Sivakumar Gómez MD [facility] 76l77d01-o202-7942-gy98-3831t52sb667 08/17/20 14 08/17/2014 Sivakumar Gómez MD [facility] 915v645s-9r38-2z4w-77g6-k3097c305846 08/17/20 14 08/17/2014 Sivakumar Gómez MD [facility] 36i98719-v7ma-240m-4596-90f3l3at33zs 08/17/20 14 08/17/2014 Sivakumar Gómez MD [facility] 22t68438-n704-4b96-j539-y87847966133 08/17/20 14 08/17/2014 Sivakumar Gómez MD [facility] 20m46oxu-805z-2461-9q98-v3zx02csop00 08/17/20 14 08/17/2014 Sivakumar Gómez MD [facility] ian5z4wg-2444-42if-4y30-2n6326093s49 08/17/20 14 08/17/2014 Sivakumar Gómez MD Triplicate-- Fentanyl r6mq7090-c0tl-09kk-q341-02ts9923j8a3 08/26/2014 08/26/2014 Sivakumar Gómez MD Triplicate-- Fentanyl 7rj9u7z4-ut36-103a-83ht-4fwb5e7at39t 08/26/2014 08/26/2014 Sivakumar Gómez MD Triplicate-- Fentanyl 3e524392-3619-3x12-eevm-7ib424832952 08/26/2014 08/26/2014 Sivakumar Gómez MD Triplicate-- Fentanyl 1y77q652-q7s7-1wt2-w605-l6nb279129v1 08/26/2014 08/26/2014 Sivakumar Gómez MD Triplicate-- Fentanyl 72ul2t76-766u-417i-56ax-8w9250f7pfx8 08/26/2014 08/26/2014 Sivakumar Gómez MD Triplicate-- Fentanyl 6r6t1k62-t5qh-9bs6-g698-rhy7227z4y32 08/26/2014 08/26/2014 Sivakumar Gómez MD Triplicate-- Fentanyl pki8oe31-w822-6o80-7z79-d62x3xp83681 08/26/2014 08/26/2014 Sivakumar Gómez MD Triplicate-- Fentanyl 7w69wu6u-2a8b-98z9-36s7-gaf80x4i6827 08/26/2014 08/26/2014 Sivakumar Gómez MD Triplicate-- Fentanyl 89p2ivbz-10e5-894l-hpp8-7kns9r922ku1 08/26/2014 08/26/2014 Sivakumar Gómez MD Triplicate-- Fentanyl 36557qs4-00a0-7w85-ukr2-u33265g874ah 08/26/2014 08/26/2014 Sivakumar Gómez MD Triplicate-- Fentanyl t906a00u-l369-27mc-h79y-3358d914814o 08/26/2014 08/26/2014 Sivakumar Gómez MD Triplicate-- Fentanyl 128r290i-5005-9739-du05-00k3jgz34f0m 08/26/2014 08/26/2014 Sivakumar Gómez MD Triplicate-- Fentanyl 28ki3705-7467-4893-6sdf-84x32i1l53o9 08/26/2014 08/26/2014 Sivakumar Gómez MD Triplicate-- Fentanyl 3k74ke0a-1am1-9581-e17b-00216b1y8e05 08/26/2014 08/26/2014 Sivakumar Gómez MD Triplicate-- Fentanyl 8z5ep93t-8k70-4e2u-e339-00878p61v410 08/26/2014 08/26/2014 Sivakumar Gómez MD Triplicate-- Fentanyl dz70j70p-7464-4519-rp3m-0j59zb101os4 08/26/2014 08/26/2014 Sivakumar Góemz MD Triplicate-- Fentanyl rf57g6p6-30zq-5tyq-5o93-rl0z6i1g2377 08/26/2014 08/26/2014 Sivakumar Gómez MD Triplicate-- Fentanyl 23vxs21s-0y74-304a-2470-x23421t09n3g 08/26/2014 08/26/2014 Sivakumar Gómez MD Triplicate-- Fentanyl 3q7kwv22-0z76-5m45-n980-uc11h8644431 08/26/2014 08/26/2014 Sivakumar Gómez MD Triplicate-- Fentanyl q41fs9l2-8x37-8t7v-h106-501u7u2ul835 08/26/2014 08/26/2014 Sivakumar Gómez MD Triplicate-- Fentanyl g8q01o6y-100s-9m95-u5ui-26kixcmsj320 08/26/2014 08/26/2014 Sivakumar Gómez MD Triplicate-- Fentanyl 1350230y-6yjf-4ms3-1y07-90jk324f8w8w 08/26/2014 08/26/2014 Sivakumar Gómez MD Triplicate-- Fentanyl 933b545w-x23x-1aql-30w8-760tqun43bj4 08/26/2014 08/26/2014 Sivakumar Gómez MD Triplicate-- Fentanyl 073x294u-eh36-420u-kf81-k641l1lk4kxj 08/26/2014 08/26/2014 Sivakumar Gómez MD Triplicate-- Fentanyl 86f287gj-57w2-2pm5-9424-44736a1m79b7 08/26/2014 08/26/2014 Sivakumar Gómez MD Triplicate-- Fentanyl e3mxm0q8-y3u6-82i7-zmm2-4667ldb023b8 08/26/2014 08/26/2014 Sivakumar Gómez MD Triplicate-- Fentanyl 46w812g4-63m4-46um-27x8-hu74s06620y1 08/26/2014 08/26/2014 Sivakumar Gómez MD Triplicate-- [facility] 1e785202-6m76-4466-q2f5-cl0e0612519f 08/26/2014 08/26/2014 Sivakumar Gómez MD Triplicate-- [facility] x706109b-554l-9n8w-e545-715t68989691 08/26/2014 08/26/2014 Sivakumar Gómez MD f/u 4g03mkd6-49rp-2369-9i26-zs3pv3tywhq1 09/08/2014 09/08/2014 Sivakumar Gómez MD f/u 734z2150-1073-17qq-0b77-8f5619m57595 09/08/2014 09/08/2014 Sivakumar Gómez MD f/u 7t8neu13-s163-2h34-6226-31c2o0p66234 09/08/2014 09/08/2014 Sivakumar Gómez MD f/u 98t68qzp-068u-2c65-2862-03254ey9t74p 09/08/2014 09/08/2014 Sivakumar Gómez MD f/u 42809589-4108-9s7s-hx41-93sz9o07q608 09/08/2014 09/08/2014 Sivakumar Gómez MD f/u 175t5qhl-a052-8706-b323-81361u2688mj 09/08/2014 09/08/2014 Sivakumar Gómez MD f/u n849629a-6147-2253-5l10-89z473qgc6j5 09/08/2014 09/08/2014 Sivakumar Gómez MD f/u d62hf627-9kz3-2h8i-8t7f-lq639z696614 09/08/2014 09/08/2014 Sivakumar Gómez MD f/u rd5120o9-67t9-7pm5-e639-gl351ob5p875 09/08/2014 09/08/2014 Sivakumar Gómez MD f/u o6426sdv-3oi0-9yo9-k074-4234jyw6188y 09/08/2014 09/08/2014 Sivakumar Gómez MD f/u 271148kf-645b-86p5-t66b-6620204301uv 09/08/2014 09/08/2014 Sivakumar Gómez MD f/u 99613pj1-4in5-1e9s-es41-118749grc777 09/08/2014 09/08/2014 Sivakumar Gómez MD f/u 07b0975e-n506-6nl1-8033-44n1mg39d5pn 09/08/2014 09/08/2014 Sivakumar Gómez MD f/u xb8wgi6d-4w83-9581-6448-7z969523h7n5 09/08/2014 09/08/2014 Sivakumar Gómez MD f/u s6ph801p-4qbu-6h23-272i-0bw7609g9768 09/08/2014 09/08/2014 Sivakumar Gómez MD f/u qw3411t3-8uln-5927-7408-sr7eed587p21 09/08/2014 09/08/2014 Sivakumar Gómez MD f/u w8266i35-uth0-1823-4c8s-9bd044iorb92 09/08/2014 09/08/2014 Sivakumar Gómez MD f/u l07673u9-re46-1k13-m532-n8k5q825jtmi 09/08/2014 09/08/2014 Sivakumar Gómez MD f/u 7b948h6t-279l-9bov-pyw8-02dnw1hm3635 09/08/2014 09/08/2014 Sivakumar Gómez MD f/u 9b4l3367-9t46-6xvq-o559-564n7438576u 09/08/2014 09/08/2014 Sivakumar Gómez MD f/u to7ef8oe-p335-52f4-5098-86h5335e1j16 09/08/2014 09/08/2014 Sivakumar Gómez MD f/u 0zw7j635-a146-0n1h-b3is-84e9573i8t3r 09/08/2014 09/08/2014 Sivakumar Gómez MD f/u 0vs31q30-p168-19m9-595z-o06085470r93 09/08/2014 09/08/2014 Sivakumar Gómez MD f/u 112t7e91-255a-5wqv-hp56-lt1nqw61cn96 09/08/2014 09/08/2014 Sivakumar Gómez MD f/u l85g3535-30o1-9zg8-7y1g-19a33l96y7z6 09/08/2014 09/08/2014 Sivakumar Gómez MD f/u 6i4fl074-v16d-8g59-adjo-l633stp00284 09/08/2014 09/08/2014 Sivakumar Gómez MD f/u b10v1fmh-7317-137f-4akx-xth820f3mr64 09/08/2014 09/08/2014 Sivakumar Gómez MD f/u 52st7j5r-6q80-3442-r0g6-k52t88z6537v 09/08/2014 09/08/2014 Sivakumar Gómez MD Add on o4sgn338-m5gq-5t24-0eqm-ol2u78l98307 10/01/19 15 10/01/2014 Sivakumar Gómez MD Add on 54f4sb04-m79m-2ad1-s27d-l89ths52165c 10/01/19 15 10/01/2014 Sivakumar Gómez MD Add on 0hi90deg-23o1-1r71-4cc1-37025qb08q0v 10/01/19 15 10/01/2014 Sivakumar Gómez MD Add on n8666h68-t843-4741-k0y2-77y9155rl9f9 10/01/19 15 10/01/2014 Sivakumar Gómez MD Add on 203b3tz6-lc39-4276-q05w-r5l87669t329 10/01/19 15 10/01/2014 Sivakumar Gómez MD Add on 37725n8j-ln52-25o6-7890-duz952g24268 10/01/19 15 10/01/2014 Sivakumar Gómez MD Add on 296519ux-lyt2-187b-x1t0-823l1b568u57 10/01/19 15 10/01/2014 Sivakumar Gómez MD Add on 2f11j0k9-ub30-0232-al67-bq6995oh68ul 10/01/19 15 10/01/2014 Sivakumar Gómez MD Add on 0r3jv2b3-60e6-6012-65a7-66kj86204qu1 10/01/19 15 10/01/2014 Sivakumar Gómez MD Add on bt7g0p94-7iid-938g-x663-63385zjg0qe4 10/01/19 15 10/01/2014 Sivakumar Gómez MD Add on 58q1ul8w-19c7-3h4c-e73a-047637076c47 10/01/19 15 10/01/2014 Sivakumar Gómez MD Add on hx45743p-9pn4-72a7-17o9-jyw77p73818g 10/01/19 15 10/01/2014 Sivakumar Gómez MD Add on 7hmte327-569n-1gy4-4r34-2ddu387u5179 10/01/19 15 10/01/2014 Sivakumar Gómez MD Add on 038056u0-098j-4rb9-b22u-521p3y4mvt6s 10/01/19 15 10/01/2014 Sivakumar Gómez MD Add on 6y5ee5l4-e64f-70i6-o63o-649v82772123 10/01/19 15 10/01/2014 Sivakumar Gómez MD Add on 37524k84-93g7-182y-w904-2ovm0b7m0m45 10/01/19 15 10/01/2014 Sivakumar Gómez MD Add on z0w03017-a45p-018n-5428-w9q4247mt64h 10/01/19 15 10/01/2014 Sivakumar Gómez MD Add on 9lwblf10-d694-485a-2a2q-484g5h35g633 10/01/19 15 10/01/2014 Sivakumar Gómez MD Add on 3976ds4e-yk79-70dy-5tj4-94g8z522wwm9 10/01/19 15 10/01/2014 Sivakumar Gómez MD Add on p7039oqu-4581-89r6-k722-3lo7p36mz61x 10/01/19 15 10/01/2014 Sivakumar Gómez MD Add on 4039348u-4p84-4073-r2z5-wmav412x2tw6 10/01/19 15 10/01/2014 Sivakumar Gómez MD Add on 1acy29p7-0rk1-5832-1oq4-29hu9u1a8u83 10/01/19 15 10/01/2014 Sivakumar Gómez MD Add on f18t5860-w7h2-6623-0c42-7905514d4167 10/01/19 15 10/01/2014 Sivakumar Gómez MD Add on 07j3nn4y-7f91-2698-l0pt-dtb0s58949ih 10/01/19 15 10/01/2014 Sivakumar Gómez MD Add on 43c7686h-753d-54sn-w7ua-74f1f9178hq4 10/01/19 15 10/01/2014 Sivakumar Gómez MD Add on pi3363e1-804a-6790-622z-tviqob4768h6 10/01/19 15 10/01/2014 Sivakumar Gómez MD Add on 056a2a0e-1pi5-266k-67qf-r8i020d5n7ia 10/01/19 15 10/01/2014 Sivakumar Gómez MD TRIPLICATE F/U 9f7y890i-eu87-8gn0-2lh5-93171687m9ug 10/08/19 15 10/08/2014 Sivakumar Gómez MD TRIPLICATE F/U 2fnk91f6-ex4b-6gtn-4074-f05w8p398h98 10/08/19 15 10/08/2014 Sivakumar Gómez MD TRIPLICATE F/U 537b9427-6853-9o89-q06f-0ek475foe02j 10/08/19 15 10/08/2014 Sivakumar Gómez MD TRIPLICATE F/U 02z77566-7518-7sb7-48pc-98a4883qf1ei 10/08/19 15 10/08/2014 Sivakumar Gómez MD TRIPLICATE F/U 5o78b9xk-sff4-2rfp-fo81-thiu1g4001ba 10/08/19 15 10/08/2014 Sivakumar Gómez MD TRIPLICATE F/U 5m7j1ie0-65oi-48p0-7792-ek8w3crs195r 10/08/19 15 10/08/2014 Sivakumar Gómez MD TRIPLICATE F/U a5ksds9j-82w2-580b-ykc2-mo8kmnh2y512 10/08/19 15 10/08/2014 Sivakumar Gómez MD TRIPLICATE F/U 2m3zhi34-6nc3-3pux-0h24-4049136t4yxw 10/08/19 15 10/08/2014 Sivakumar Gómez MD TRIPLICATE F/U d6avx243-44ld-808r-9696-2a91u929wu7j 10/08/19 15 10/08/2014 Sivakumar Gómez MD TRIPLICATE F/U 872594e3-931x-1k4w-8990-73b94ht960tr 10/08/19 15 10/08/2014 Sivakumar Gómez MD TRIPLICATE F/U r84o1213-z5nt-005z-75p9-f3144b023r66 10/08/19 15 10/08/2014 Sivakumar Gómez MD TRIPLICATE F/U 72t40e69-klpc-28z4-4011-6092wcw02h46 10/08/19 15 10/08/2014 Sivakumar Gómez MD TRIPLICATE F/U 9yc0rn9u-289b-942r-ap46-8y451692874k 10/08/19 15 10/08/2014 Sivakumar Gómez MD TRIPLICATE F/U 411h4c6h-529i-155e-p16f-66a195g483hj 10/08/19 15 10/08/2014 Sivakumar Gómez MD TRIPLICATE F/U 13ej74x0-5q66-104f-io45-6r4016n459k5 10/08/19 15 10/08/2014 Sivakumar Gómez MD TRIPLICATE F/U w6t84r48-3318-8n8m-x89f-54101lg07103 10/08/19 15 10/08/2014 Sivakumar Gómez MD TRIPLICATE F/U 97m8v75e-hn8l-7k92-337l-733h525q7410 10/08/19 15 10/08/2014 Sivakumar Gómez MD TRIPLICATE F/U 612xkv2y-9jfr-8901-277y-57p04z8dxwsa 10/08/19 15 10/08/2014 Sivakumar Gómez MD TRIPLICATE F/U gj8r6683-43b3-0o72-2s22-956z6k6v0u56 10/08/19 15 10/08/2014 Sivakumar Gómez MD TRIPLICATE F/U 5d8r944e-r03t-6mj6-d620-99282zt6k0l4 10/08/19 15 10/08/2014 Sivakumar Gómez MD TRIPLICATE F/U 7252a1v1-3q85-9uz8-7466-1ev4hoi85043 10/08/19 15 10/08/2014 Sivakumar Gómez MD TRIPLICATE F/U 3k34969t-96o2-73uf-l4nh-3609472z74q6 10/08/19 15 10/08/2014 Sivakumar Gómez MD TRIPLICATE F/U w31f8r41-s99l-7x19-983w-hy2l13ox7v4h 10/08/19 15 10/08/2014 Sivakumar Gómez MD TRIPLICATE F/U 24n87618-k43z-5h73-730p-x442i9451191 10/08/19 15 10/08/2014 Sivakuamr Gómez MD tramadol rx x7lbk967-zf77-3ox0-osqt-630cx63i8t58 10/11/19 15 10/11/2014 Sivakumar Gómez MD tramadol rx 072itslp-6614-35ut-8n53-3093avagp6f8 10/11/19 15 10/11/2014 Sivakumar Gómez MD tramadol rx 5156d20m-g68e-77a7-5369-7fvt78r8fi48 10/11/19 15 10/11/2014 Sivakumar Gómez MD tramadol rx 795pi979-f048-21s7-642i-a8f4e4vt6s8z 10/11/19 15 10/11/2014 Sivakumar Gómez MD tramadol rx 623v9npk-g4pu-37v7-q5o4-l8f3x041294b 10/11/19 15 10/11/2014 Sivakumar Gómez MD tramadol rx f4718v48-fpzu-6s91-31tn-f1311y23135k 10/11/19 15 10/11/2014 Sivakumar Gómez MD tramadol rx xf70y402-4577-2282-9304-126cz5850263 10/11/19 15 10/11/2014 Sivakumar Gómez MD tramadol rx 0532j3xa-ax3g-0ccd-igj7-kh1et65d6453 10/11/19 15 10/11/2014 Sivakumar Gómez MD tramadol rx qif4bt5u-a27b-45nd-91i3-9ae726f23zww 10/11/19 15 10/11/2014 Sivakumar Gómez MD tramadol rx hn3o182w-b6y2-4e3m-162a-wx9z658b2i33 10/11/19 15 10/11/2014 Sivakumar Gómez MD tramadol rx 4tm4x662-6d9j-03m6-jt96-q0getl74w419 10/11/19 15 10/11/2014 Sivakumar Gómez MD tramadol rx 409622ab-2539-83w6-olno-41o508h3zt4b 10/11/19 15 10/11/2014 Sivakumar Gómez MD tramadol rx 2egdcr37-57w0-453k-58hu-84tu8eh4za6m 10/11/19 15 10/11/2014 Sivakumar Gómez MD tramadol rx 6b90l61f-cx58-35r9-57v3-0p71313lk0h6 10/11/19 15 10/11/2014 Sivakumar Gómez MD tramadol rx h45l9i4q-7jxg-9kz7-7w70-40nn97jsc261 10/11/19 15 10/11/2014 Sivakumar Gómez MD tramadol rx 9y7820g8-88p2-438w-aa00-65ie7734gu3a 10/11/19 15 10/11/2014 Sivakumar Gómez MD tramadol rx 4y473d3c-909k-8u83-59q3-28nt558d2bc0 10/11/19 15 10/11/2014 Sviakumar Gómez MD tramadol rx c01u27f1-5kz9-2y7o-2uc9-5zrlxv969981 10/11/19 15 10/11/2014 Sivakumar Gómez MD tramadol rx 5n905c57-5l4e-45y6-3972-77z8837k3231 10/11/19 15 10/11/2014 Sivakumar Gómez MD tramadol rx h6g1k890-7173-3218-742x-d0h2bx267p7o 10/11/19 15 10/11/2014 Sivakumar Gómez MD tramadol rx 05f74238-8hd4-07y5-l8q0-n83rj9f51yv3 10/11/19 15 10/11/2014 Sivakumar Gómez MD tramadol rx i3jc21ej-kw37-70v7-7735-l58371116i1v 10/11/19 15 10/11/2014 Sivakumar Gómez MD tramadol rx 0203j4i1-j5x6-5790-7842-c189silq69gb 10/11/19 15 10/11/2014 MD ani Perezadol rx s5dm5h70-z630-5nq9-o505-y847e3en8d9o 10/11/19 15 10/11/2014 Sivakumar Gómez MD tramadol rx 91dw820k-7x9g-646e-4q7n-3rubgm7vmq5a 10/11/19 15 10/11/2014 Sivakumar Gómez MD tramadol rx 9d1s1o95-3094-937a-x63k-9c2j5595563p 10/11/19 15 10/11/2014 Sivakumar Gómez MD TRIPLICATE F/U 179jxl67-t5nt-911y-g44d-72l7w33n24r0 11/05/19 15 11/05/2014 Sivakumar Gómez MD TRIPLICATE F/U 894ct0y8-yw35-1730-709e-2b3y61an49bi 11/05/19 15 11/05/2014 Sivakumar Gómez MD TRIPLICATE F/U 1m7603z2-3c7d-3b2j-3q4e-6qq5m5l7079g 11/05/19 15 11/05/2014 Sivakumar Gómez MD TRIPLICATE F/U w3579973-94wk-48o5-h1g9-q1af91182d39 11/05/19 15 11/05/2014 Sivakumar Gómez MD TRIPLICATE F/U 76n85647-zdk1-52v1-43si-4848819v11f6 11/05/19 15 11/05/2014 Sivakumar Gómez MD TRIPLICATE F/U 2731h33g-7m5n-66o7-h34f-79834x4t3fb3 11/05/19 15 11/05/2014 Sivakumar Gómez MD TRIPLICATE F/U dcnqvwrx-3o3l-80bg9w3x-49wy-m5u1-b5t503jgij44 11/05/19 15 11/05/2014 Sivakumar Gómez MD TRIPLICATE F/U jtz9y170-pu8h-9y63-k409-082ad470pp7r 11/05/19 15 11/05/2014 Sivakumar Gómez MD TRIPLICATE F/U i302791z-o14v-7i47-g097-66e9of70938i 11/05/19 15 11/05/2014 Sivakumar Gómez MD TRIPLICATE F/U 45pu5i2y-hy41-7j91-u22e-0a37926786c5 11/05/19 15 11/05/2014 Sivakumar Gómez MD TRIPLICATE F/U f2mqdaz1-do13-9q39-5xxp-00l0750h10cp 11/05/19 15 11/05/2014 Sivakumar Gómez MD TRIPLICATE F/U r82fs6v4-h07x-851d-32o2-8n684c635u19 11/05/19 15 11/05/2014 Sivakumar Gómez MD TRIPLICATE F/U 75xq5546-35f8-42r0-1336-9g2t1a67b773 11/05/19 15 11/05/2014 Sivakumar Gómez MD TRIPLICATE F/U 5c280bdv-ep70-0489-jn9g-54953377g834 11/05/19 15 11/05/2014 Sivakumar Gómze MD TRIPLICATE F/U 72983ux0-o5q4-96p2-522t-6593862pii90 11/05/19 15 11/05/2014 Sivakumar Gómez MD TRIPLICATE F/U 7w095sl9-09fo-6433-w463-2r38t03953v4 11/05/19 15 11/05/2014 Sivakumar Gómez MD TRIPLICATE F/U 5v5zf4nb-rb6b-5341-40db-06795p8savo9 11/05/19 15 11/05/2014 Sivakumar Gómez MD TRIPLICATE F/U 2f2tok34-i502-46b2-2z65-g58465977095 11/05/19 15 11/05/2014 Sivakumar Gómez MD TRIPLICATE F/U 1x144u35-g9sg-4336-c453-654543x629ii 11/05/19 15 11/05/2014 Sivakumar Gómez MD TRIPLICATE F/U o078256h-8g46-6ua4-3hy9-80y80rte959g 11/05/19 15 11/05/2014 Sivakumar Gómez MD TRIPLICATE F/U z476f2dg-6p77-1ol3-63h2-2y73u3p5091a 11/05/19 15 11/05/2014 Sivakumar Gómez MD TRIPLICATE F/U c2437prm-866d-778w-my90-f98331oo871a 11/05/19 15 11/05/2014 Sivakumar Gómez MD 1 mo f/u 389xqe42-g29z-0uga-q24q-13g282s3fsv5 12/04/19 15 12/03/2014 Sivakumar Gómez MD 1 mo f/u 1u5yxtz4-j132-202r-a444-11566et425af 12/04/19 15 12/03/2014 Sivakumar Gómez MD 1 mo f/u 959033k1-284b-90t9-ws42-s03378xz4912 12/04/19 15 12/03/2014 Sivakumar Gómez MD 1 mo f/u a5433d5a-yy5l-1aj5-y7ht-9794uy300a7q 12/04/19 15 12/03/2014 Sivakumar Gómez MD 1 mo f/u 3qn94480-0666-3zgt-ha6y-b33d8h5t2y40 12/04/19 15 12/03/2014 Sivakumar Gómez MD 1 mo f/u 398b28rq-z929-0994-qu19-872ht494r77k 12/04/19 15 12/03/2014 Sivakumar Gómez MD 1 mo f/u u520469d-2fu8-3b51-ijn0-x47r3j93085y 12/04/19 15 12/03/2014 Sivakumar Gómez MD 1 mo f/u 6e539v63-582t-8l7j-731i-c1vy9cj4dz46 12/04/19 15 12/03/2014 Sivakumar Gómez MD 1 mo f/u 0c945092-87z7-2322-2r61-2q354357243y 12/04/19 15 12/03/2014 Sivakumar Gómez MD 1 mo f/u 109xm2x1-74m3-40f9-a9u7-t4l80k839k77 12/04/19 15 12/03/2014 Sivakumar Gómez MD 1 mo f/u 8718r7y7-a503-0p67-0121-6u5v93iji5y4 12/04/19 15 12/03/2014 Sivakumar Gómez MD 1 mo f/u 1a820223-7817-8e3t-ra64-b68l37ma55te 12/04/19 15 12/03/2014 Sivakumar Gómez MD 1 mo f/u 335o00x9-r9l2-1eb7-w3x6-192wg89bq603 12/04/19 15 12/03/2014 Sivakumar Gómez MD 1 mo f/u 7t50dre6-19rg-26mx-k68p-f22c23152gkm 12/04/19 15 12/03/2014 Sivakumar Gómez MD 1 mo f/u t48j3615-e5g1-128t-wr5s-iu47tc6w238u 12/04/19 15 12/03/2014 Sivakumar Gómez MD 1 mo f/u 4c1ih35o-3b96-16x8-c66k-e4n4l1b3r4wt 12/04/19 15 12/03/2014 Sivakumar Gómez MD 1 mo f/u 8x569090-2t9w-5051-c69t-4x8z2uyc8657 12/04/19 15 12/03/2014 Sivakumar Gómez MD 1 mo f/u j278k49s-5a62-4l67-i3n3-6653n1a555uc 12/04/19 15 12/03/2014 Sivakumar Gómez MD Reclast refill z1q4c4z3-85zv-7n7h-k9xt-4z449rd7o3rr 12/04/19 15 12/03/2014 Sivakumar Gómez MD Reclast refill vu2388dj-o890-1h48-7vk0-gqx197v017rj 12/04/19 15 12/03/2014 Sivakumar Gómez MD Reclast refill unja7i54-584f-4209-q00t-3q330764011d 12/04/19 15 12/03/2014 Sivakumar Gómez MD Reclast refill 5m66g9hu-i505-64g9-f730-464gpnlvn8b8 12/04/19 15 12/03/2014 Sivakumar Gómez MD Reclast refill 01u7a2h3-m5n3-7c37-kp72-ew54smy07p4j 12/04/19 15 12/03/2014 Sivakumar Gómez MD Reclast refill 36k2331y-846r-2f39-7909-z5fb22z7498z 12/04/19 15 12/03/2014 Sivakumar Gómez MD Reclast refill 6x39tt7l-05v9-35h6-w5ej-0440778h7ajf 12/04/19 15 12/03/2014 Sivakumar Gómez MD Reclast refill m2b69tx0-s648-0x92-5n5m-79437pjz78vm 12/04/19 15 12/03/2014 Sivakumar Gómez MD Reclast refill d2h717h0-g654-292s-42x4-2vi128h1n632 12/04/19 15 12/03/2014 Sivakumar Gómez MD Reclast refill 6xy7551w-mr4d-52n0-42mb-44c1p586m653 12/04/19 15 12/03/2014 Sivakumar Gómez MD Reclast refill qy76f72r-o164-814w-634z-t465t1929941 12/04/19 15 12/03/2014 Sivakumar Gómez MD Reclast refill 2d01g1v0-2ci4-37d5-8d14-t9o1u7138072 12/04/19 15 12/03/2014 Sivakumar Gómez MD Reclast refill z6vp0m68-5715-767q-52i8-975ch0813n35 12/04/19 15 12/03/2014 Sivakumar Gómez MD Reclast refill 3wdu7408-9181-59wk-95o5-16i84qs30482 12/04/19 15 12/03/2014 Sivakumar Gómez MD Reclast refill 5p5679h5-d976-1cnu-233w-b640zxd11t04 12/04/19 15 12/03/2014 Sivakumar Gómez MD Reclast refill 08n8w9c4-9m56-1na3-u002-75z12044640r 12/04/19 15 12/03/2014 Sivakumar Gómez MD Reclast refill 60l16o67-a061-3e50-bjbg-n08m0t55ggs5 12/04/19 15 12/03/2014 Sivakumar Gómez MD Reclast refill uwr3gz5k-t1i4-52a4-09ol-e75i438mm407 12/04/19 15 12/03/2014 Sivakumar Gómez MD 1 mo f/u k67s4118-2d88-55k5-1717-9b6036387ihp 12/04/19 15 12/03/2014 Sivakumar Gómez MD 1 mo f/u h94n4fdi-55m8-66fw-4582-tx48045d9415 12/04/19 15 12/03/2014 Sivakumar Gómez MD 1 mo f/u 79s3m5z3-0344-803q-2346-k2p492462550 12/04/19 15 12/03/2014 Sivakumar Gómez MD 1 mo f/u 4n20e4rh-jy0v-701q-o0x8-553298170n59 12/04/19 15 12/03/2014 Sivakumar Gómez MD 1 mo f/u 115o815u-ya33-0072-w64c-mgr9459hd7s9 12/04/19 15 12/03/2014 Sivakumar Gómez MD 1 mo f/u k18f8200-128w-89x4-55af-iu3w841nd561 12/04/19 15 12/03/2014 Sivakumar Gómez MD 1 mo f/u 839db694-0mk5-9724-0ws7-o13n644j6515 12/04/19 15 12/03/2014 Sivakumar Gómez MD Reclast refill 35t01432-5i28-6n69-7z8g-64191q0zcxtk 12/04/19 15 12/03/2014 Sivakumar Gómez MD Reclast refill 0d8o8994-jz2g-93z4-29m4-9370b460k9ok 12/04/19 15 12/03/2014 Sivakumar Gómez MD Reclast refill 25tc2ug5-d25x-5771-5fx3-q0x387d5597s 12/04/19 15 12/03/2014 Sivakumar Gómez MD Reclast refill p2843zd5-18k5-0147-59pp-27s1h4vch4fl 12/04/19 15 12/03/2014 Sivakumar Gómez MD Reclast refill 946457c2-4l7y-1833-j971-5810457575jm 12/04/19 15 12/03/2014 Sivakumar Gómez MD Reclast refill 16b29yl2-ow5c-12d2-b224-0411xqhdsn12 12/04/19 15 12/03/2014 Sivakumar Gómez MD Reclast refill jkux39uz-o6y2-074c-6445-u10y8t8931t7 12/04/19 15 12/03/2014 Sivakumar Gómez MD 1 mo f/u 45b718a6-t15d-543g-5957-6c415m246800 01/15/20 15 01/14/2015 Sivakumar Gómze MD 1 mo f/u 78slcm15-17zx-14kt-b8vk-p02227r58z6m 01/15/20 15 01/14/2015 Sivakumar Gómez MD 1 mo f/u j664l040-2s07-6719-ll88-7zjq7l82qf7a 01/15/20 15 01/14/2015 Sivakumar Gómez MD 1 mo f/u x0t6xq06-970q-9ifj-8811-0837ll1kr47v 01/15/20 15 01/14/2015 Sivakumar Gómez MD 1 mo f/u ar4wl174-3v81-367e-fd68-68aa11c0e831 01/15/20 15 01/14/2015 Sivakumar Gómez MD 1 mo f/u w5e60f66-663q-9r12-7i0y-8s38554u1gmm 01/15/20 15 01/14/2015 Sivakumar Gómez MD 1 mo f/u 5u7270q7-63xl-772w-br57-01582iw14o29 01/15/20 15 01/14/2015 Sivakumar Gómez MD 1 mo f/u 88t6l6f7-780o-8551-qgr5-z97wqs242918 01/15/20 15 01/14/2015 Sivakumar Gómez MD 1 mo f/u zzt6a388-hk7x-164c-9596-7ot1ne97qdu2 01/15/20 15 01/14/2015 Sivakumar Gómez MD 1 mo f/u ex8l5kx7-32l2-8397-gn3e-37x812qes1ty 01/15/20 15 01/14/2015 Sivakumar Gómez MD 1 mo f/u 27k6n627-ml25-96l2-vp5s-pfls0m14w4kd 01/15/20 15 01/14/2015 Sivakumar Gómez MD 1 mo f/u w99i9887-grz0-6ae4-s1kx-e94y358a4uc5 01/15/20 15 01/14/2015 Sivakumar Gómez MD 1 mo f/u h11z3630-67q0-1289-gv79-2537357o6913 01/15/20 15 01/14/2015 Sivakumar Gómez MD 1 mo f/u b88a4m41-6790-0117-2818-0299s04e8ro4 01/15/20 15 01/14/2015 Sivakumar Gómez MD 1 mo f/u 4e945366-t023-7upu-xzs3-0z4276l7s899 01/15/20 15 01/14/2015 Sivakumar Gómez MD 1 mo f/u 081635nm-468v-8093-u905-044t8n6s5uig 01/15/20 15 01/14/2015 Sivakumar Gómez MD 1 mo f/u j2a1fg3f-8v1j-34s5-9z8t-7ks3ue9l7642 01/15/20 15 01/14/2015 Sivakumar Gómez MD 1 mo f/u 9v90i0i6-81zd-71ms-9un8-h0v41a0j3qr6 01/15/20 15 01/14/2015 Sivakumar Gómez MD 1 mo f/u s5ppv319-6ne4-9803-9szt-z4ojv09ux0q3 01/15/20 15 01/14/2015 Sivakumar Gómez MD 1 mo f/u 78hi607g-msc5-9o03-u5ax-pa32wq2l464d 01/15/20 15 01/14/2015 Sivakumar Gómez MD 1 mo f/u rwd70yj8-r88u-0333-d975-99m81hyjgti8 01/15/20 15 01/14/2015 Sivakumar Gómez MD MRI a2086r21-p983-3mno-g910-3514zgpi1551 01/18/2015 01/18/2015 Sivakumar Gómez MD MRI 7wl22dfu-ps7c-50bo-24dc-4xgk91023bdt 01/18/2015 01/18/2015 Sivakumar Gómez MD MRI 094w856m-7411-4ute-w344-38485c144036 01/18/2015 01/18/2015 Sivakumar Gómez MD MRI n19gxul5-9zub-8l7r-5781-ge474247t29h 01/18/2015 01/18/2015 Sivakumar Gómez MD MRI 0x18yzxr-l16y-0a97-i2u5-db078yx371v5 01/18/2015 01/18/2015 Sivakumar Gómez MD MRI h9eqvhoq-v8f5-1q16-sz34-x7470398i9y7 01/18/2015 01/18/2015 Sivakumar Gómez MD MRI g786x2ux-3053-2597-2288-v9e4w19qx2t7 01/18/2015 01/18/2015 Sivakumar Gómez MD MRI d0e530f1-4397-7895-622d-hkv77m7v8715 01/18/2015 01/18/2015 Sivakumar Gómez MD MRI 3k0hgf79-4o3b-33a8-028s-7p26ku6503q6 01/18/2015 01/18/2015 Sivakumar Gómez MD MRI 983nz64l-6tg6-9b03-iqbb-461imu79t97y 01/18/2015 01/18/2015 Sivakumar Gómez MD MRI 0h26mf98-83o8-8175-at1i-g2cntu3t372f 01/18/2015 01/18/2015 Sivakumar Gómez MD MRI 631d58fv-2v3x-402n-36k3-225df2x0g57h 01/18/2015 01/18/2015 Sivakumar Gómez MD MRI 134427ca-5348-77zs-hc44-20x73y4929pz 01/18/2015 01/18/2015 Sivakumar Gómez MD MRI 70a501n2-2el5-3tr4-77df-9433eo28238k 01/18/2015 01/18/2015 Sivakumar Gómez MD MRI 4r539g53-2444-2jz9-424l-76m5d35j2840 01/18/2015 01/18/2015 Sivakumar Gómez MD MRI 30u007a6-8390-31s1-k05e-1j2e15tqk1k5 01/18/2015 01/18/2015 Sivakumar Gómez MD [facility] ns5zja90-w836-7l43-8082-fq378k6ff87n 01/18/2015 01/18/2015 Sivakumar Gómez MD DEXA e591i65s-56o3-5qo5-731q-4i958301l20w 01/18/2015 01/18/2015 Sivakumar Gómez MD DEXA 52w19963-n788-4h61-f167-352i13527222 01/18/2015 01/18/2015 Sivakumar Gómez MD DEXA 8ifzam28-kmf9-461h-fmh4-90v514344we8 01/18/2015 01/18/2015 Sivakumar Gómez MD DEXA i2m5v92g-1354-3910-6p1s-69549c182884 01/18/2015 01/18/2015 Sivakumar Gómez MD DEXA e28e4iuv-6pw7-80i4-acn5-0j4fybrz4h90 01/18/2015 01/18/2015 Sivakumar Gómez MD DEXA 39c099uv-44by-76s6-rown-18jv2f8nw0r8 01/18/2015 01/18/2015 Sivakumar Gómez MD DEXA pzeql970-w296-854n-74pd-e4r8z7euz11k 01/18/2015 01/18/2015 Sivakumar Gómez MD DEXA 187f8uf0-z69f-2i62-a26h-4028r94u1792 01/18/2015 01/18/2015 Sivakumar Gómez MD DEXA b474bo52-6791-3ag2-5uq8-21535d8395y8 01/18/2015 01/18/2015 Sivakumar Gómez MD DEXA 5wrpp5m4-475n-52ql-941t-283jqbs37j30 01/18/2015 01/18/2015 Sivakumar Gómez MD DEXA ye9x9w77-2a8m-0c53-49g5-69xxc3745144 01/18/2015 01/18/2015 Sivakumar Gómez MD DEXA ddoi2180-370p-48tn-hjc4-9513q02j5keg 01/18/2015 01/18/2015 Sivakumar Gómez MD DEXA 46g5828p-uo09-0843-joct-882jz49164gs 01/18/2015 01/18/2015 Sivakumar Gómez MD DEXA p3y93j23-6366-80gq-9n32-dp9v153i9lu0 01/18/2015 01/18/2015 Sivakumar Gómez MD DEXA qqe3789r-u558-96r8-423p-7y582kn77qs5 01/18/2015 01/18/2015 Sivakumar Gómez MD DEXA 038d34cd-8145-1886-05c5-9690d6wsy285 01/18/2015 01/18/2015 Sivakumar Gómez MD DEXA 46u0hop5-65rb-836f-b901-7w5z6c86dx6g 01/18/2015 01/18/2015 Sivakumar Gómez MD DEXA n37kr08f-6405-2c54-z811-23209v4a6w0y 01/18/2015 01/18/2015 Sivakumar Gómez MD MRI 8ab7v2ap-0079-2806-58j5-655oa6a52upj 01/18/2015 01/18/2015 Sivakumar Gómez MD MRI 88u9103r-817p-89sl-e537-7p4j3kv62q44 01/18/2015 01/18/2015 Sivakumar Gómez MD MRI 74d04jv9-2g74-08lq-54xt-35ny1a4059v2 01/18/2015 01/18/2015 Sivakumar Gómez MD MRI l72i51l2-2a15-4813-m10r-2g1520j5008d 01/18/2015 01/18/2015 Sivakumar Gómez MD MRI co69678g-6499-78uz-aj31-6j83086cj7c1 01/18/2015 01/18/2015 Sivakumar Gómez MD MRI j1k0dd5e-819x-4590-4a27-652j8z18k389 01/18/2015 01/18/2015 Sivakumar Gómez MD MRI 4wd988i2-2z52-0482-ii1g-0sabt6cz6853 01/18/2015 01/18/2015 Sivakumar Gómez MD DEXA lk8lew5d-341v-94a3-iy47-xw70my695546 01/18/2015 01/18/2015 Sivakumar Gómez MD DEXA 3y25lwj0-5as8-132w-v1e7-66y3zhyc126d 01/18/2015 01/18/2015 Sivakumar Gómez MD DEXA 2z870j8g-326b-1307-nu76-0uy893g21f14 01/18/2015 01/18/2015 Sivakumar Gómez MD DEXA nr1u5209-4452-18w9-j24m-519owxk421x1 01/18/2015 01/18/2015 Sivakumar Gómez MD DEXA 72746l2j-5j55-9vq5-4m80-5739nq5y5b95 01/18/2015 01/18/2015 Sivakumar Gómez MD DEXA l6932t56-p2hi-53j7-7bo6-q58p72u6j11c 01/18/2015 01/18/2015 Sivakumar Gómez MD DEXA wg3604ii-2w74-4i78-ige3-4106h11868mo 01/18/2015 01/18/2015 Sivakumar Gómez MD RECLAST SPP 2p722lxu-19iq-6629-4213-6748p03226t8 02/11/20 15 02/10/2015 Sivakumar Gómez MD RECLAST SPP 2y9l4u73-8265-805t-1w48-ol4bc35x5159 02/11/20 15 02/10/2015 Sivakumar Gómez MD RECLAST SPP 1558452b-1k2p-5z71-1oj2-67662g315v48 02/11/20 15 02/10/2015 Sivakumar Gómez MD RECLAST SPP 9xnd0070-o221-69x4-t6e0-80p7919b9g7o 02/11/20 15 02/10/2015 Sivakumar Gómez MD RECLAST SPP c1331296-74n7-156a-8syf-b05664w3t7dx 02/11/20 15 02/10/2015 Sivakumar Gómez MD RECLAST SPP w39un8v9-486a-7226-3150-9z447puyu816 02/11/20 15 02/10/2015 Sivakumar Gómez MD RECLAST SPP 692b3637-8f18-1wm8-yutp-or0ict8603ef 02/11/20 15 02/10/2015 Sivakumar Gómez MD RECLAST SPP 8cb3a254-y126-9316-706k-8vwx8v1w9159 02/11/20 15 02/10/2015 Sivakumar Gómez MD RECLAST SPP pa59h988-59t7-5j59-ob4f-c0a7w60j8n03 02/11/20 15 02/10/2015 Sivakumar Gómez MD RECLAST SPP s3837eu1-w149-9gp7-017b-cgdvjub8792j 02/11/20 15 02/10/2015 Sivakumar Gómez MD RECLAST SPP 3403g9a9-q054-8r87-m913-l1u1q29w42r2 02/11/20 15 02/10/2015 Sivakumar Gómez MD RECLAST SPP 496k54gk-hk07-1296-45ay-ye51008u385i 02/11/20 15 02/10/2015 Sivakumar Gómez MD RECLAST SPP 45b673cs-45e1-22z8-fd8u-nj4c94370671 02/11/20 15 02/10/2015 Sivakumar Gómez MD RECLAST SPP b488qiz3-u6gk-5ab5-o697-w905bi0r01d4 02/11/20 15 02/10/2015 Sivakumar Gómez MD RECLAST SPP 3q70zr3s-m6v7-77y2-2456-mn2udf219003 02/11/20 15 02/10/2015 Sivakumar Gómez MD RECLAST SPP 010tb267-8d50-2t76-iy47-063z6467z046 02/11/20 15 02/10/2015 Sivakumar Gómez MD RECLAST SPP 6s29327z-4t32-66c6-g877-8863623b7sc0 02/11/20 15 02/10/2015 Sivakumar Gómez MD RECLAST SPP p95h7s6a-70rg-003x-6c35-28185om19cm4 02/11/20 15 02/10/2015 Sivakumar Gómez MD RECLAST SPP zv828r58-1888-81i0-4144-6b5ot9127fy1 02/11/20 15 02/10/2015 Sivakumar Gómez MD RECLAST SPP dg6d3o75-6988-5d25-3c45-325180yb588a 02/11/20 15 02/10/2015 Sivakumar Gómez MD RECLAST SPP 64u3a54j-z44g-3958-3954-s32587262if1 02/11/20 15 02/10/2015 Sivakumar Gómez MD RECLAST SPP 73m3n617-fr20-04zo-u730-p581537ijnc2 02/11/20 15 02/10/2015 Sivakumar Gómez MD RECLAST SPP 7q290sv4-3elz-626r-svx0-sj742g1ax0pf 02/11/20 15 02/10/2015 Sivakumar Gómez MD RECLAST SPP 6j1945tm-46q0-8xd2-4yyz-j2r7e4s53h35 02/11/20 15 02/10/2015 Sivakumar Gómez MD 1 mo f/u w2ucb5q9-w673-61t4-p228-ent5o3mog045 02/12/20 15 02/11/2015 Sivakumar Gómez MD 1 mo f/u 0lx7508r-mz1z-899s-so8n-n485j59o647w 02/12/20 15 02/11/2015 Sivakumar Gómez MD 1 mo f/u 52o4f478-0n0q-7957-w7b7-9l7by0n0t044 02/12/20 15 02/11/2015 Sivakumar Gómez MD 1 mo f/u qg8q686z-9775-8073-t23g-t448d22tldn8 02/12/20 15 02/11/2015 Sivakumar Gómez MD 1 mo f/u z8zod3fm-mqh3-2h27-560b-am97fw054l8z 02/12/20 15 02/11/2015 Sivakumar Gómez MD 1 mo f/u r24oyfc1-hr99-8ew5-zysr-6465k73t5304 02/12/20 15 02/11/2015 Sivakumar Gómez MD 1 mo f/u 90rl0zc6-4390-39us-fte5-q44poiphe0l6 02/12/20 15 02/11/2015 Sivakumar Gómez MD 1 mo f/u 68591154-0t90-51aq-4912-u240m4vr8z85 02/12/20 15 02/11/2015 Sivakumar Gómez MD 1 mo f/u q097227l-b9x1-2841-t01p-x62vk3jm79xg 02/12/20 15 02/11/2015 Sivakumar Gómez MD 1 mo f/u 2bm15tr0-841t-904y-7942-j696843x2908 02/12/20 15 02/11/2015 Sivakumar Gómez MD 1 mo f/u vcs4hb53-1j88-4028-r92i-79999kmylj0z 02/12/20 15 02/11/2015 Sivakumar Gómez MD 1 mo f/u jf62jc46-56x8-89jx-i543-39042pfv1c55 02/12/20 15 02/11/2015 Sivakumar Gómez MD 1 mo f/u 40iw3708-66wu-9364-w588-gu188v8b382o 02/12/20 15 02/11/2015 Sivakumar Gómez MD 1 mo f/u v8n8235b-q291-60c8-74q1-81145f9h0t2s 02/12/20 15 02/11/2015 Sivakumar Gómez MD 1 mo f/u b8s8pqur-j513-1xys-dkwq-8t318drx50re 02/12/20 15 02/11/2015 Sivakumar Gómez MD 1 mo f/u 5jz67107-9749-4953-01aw-z45z7002v350 02/12/20 15 02/11/2015 Sivakumar Gómez MD 1 mo f/u 1w40e214-4pxb-9uj0-2d70-87n745v4278n 02/12/20 15 02/11/2015 Sivakumar Gómez MD 1 mo f/u 6af44929-a196-728x-5ra6-8m1c04x7h8wc 02/12/20 15 02/11/2015 Sivakumar Gómez MD 1 mo f/u tyfpyydy-528u-1xd81sw2-va4b-x23584750es5 02/12/20 15 02/11/2015 Sivakumar Gómez MD 1 mo f/u c04h9163-7738-83u7-7h34-wfx17bz8551y 02/12/20 15 02/11/2015 Sivakumar Gómez MD 1 mo f/u l84452j6-v3r2-8d39-zfc1-e4oe320p332w 02/12/20 15 02/11/2015 Sivakumar Gómez MD Reclast 1u881588-6426-6o34-l81i-6z322e0hpxiv 02/12/20 15 02/11/2015 Sivakumar Gómez MD Reclast 44t9oy13-0112-1z33-361p-v87c9s24v7u7 02/12/20 15 02/11/2015 Sivakumar Gómez MD Reclast 0o923q23-r6ex-0149-v677-nb957x2g642l 02/12/20 15 02/11/2015 Sivakumar Gómez MD Reclast wr73y1i9-799k-4oz9-a539-z979bn625028 02/12/20 15 02/11/2015 Sivakumar Gómez MD Reclast m15b572v-117n-9011-7ore-93c36phf9i93 02/12/20 15 02/11/2015 Sivakumar Gómez MD Reclast qn29j58m-64vi-6q7d-ssd3-120i82kty71r 02/12/20 15 02/11/2015 Sivakumar Gómez MD Reclast 29ab5096-nl6i-2om8-8bc6-ndo98494f01b 02/12/20 15 02/11/2015 Sivakumar Gómez MD Reclast 3a4160c5-1b28-18gh-4100-i0yk29pqj2ms 02/12/20 15 02/11/2015 Sivakumar Gómez MD Reclast d14m0789-lz6y-39p4-7n4z-52fm836h830y 02/12/20 15 02/11/2015 Sivakumar Gómez MD Reclast e5qmgy24-9919-446h-8k40-u94i9egrw469 02/12/20 15 02/11/2015 Sivakumar Gómez MD Reclast 7c6k8471-1ak2-93k3-g940-r505tk77j1w6 02/12/20 15 02/11/2015 Sivakumar Gómez MD Reclast 34cr95rf-uf8s-6110-ko96-50h45z48tt10 02/12/20 15 02/11/2015 Sivakumar Gómez MD Reclast 48y642r0-kf51-7l2n-p939-9aa6vb1cu3h8 02/12/20 15 02/11/2015 Sivakumar Gómez MD Reclast fp1r511b-37sk-24r3-23g3-8wn9gspael31 02/12/20 15 02/11/2015 Sivakumar Gómez MD Reclast 1ny76m07-dtzm-7f81-7544-9ki91p702132 02/12/20 15 02/11/2015 Sivakumar Gómez MD Reclast 24ifi45n-t3e5-3x15-9763-g28f9pizlbha 02/12/20 15 02/11/2015 Sivakumar Gómez MD Reclast oktg207m-9845-043e-2a0o-s3r3uj68mwlu 02/12/20 15 02/11/2015 Sivakumar Gómez MD Reclast 64hm6d88-z4m8-4416-ba0m-7088r6zac587 02/13/20 15 02/12/2015 Sivakumar Gómez MD Reclast npg3s78o-8515-6136-tm29-9l7n2k8le588 02/13/20 15 02/12/2015 Sivakumar Gómez MD Reclast 03u8zp68-6gal-2798-3i01-83048re1h92m 02/13/20 15 02/12/2015 Sivakumar Gómez MD Reclast 13ze854b-876k-50by-2m2k-83hgvne3079g 02/13/20 15 02/12/2015 Sivakumar Gómez MD Reclast 6asba71y-di41-6514-14z5-75674148fq45 02/13/20 15 02/12/2015 Sivakumar Gómez MD Reclast 33vj6xd1-525p-72g3-o78m-yu9d90s59i1r 02/13/20 15 02/12/2015 Sivakumar Gómez MD Reclast t68zv1p4-9164-785x-owtx-5x554y3o7hcu 02/13/20 15 02/12/2015 Sivakumar Gómez MD labs z22ok807-741a-75js-19c3-4229565mc2w5 03/07/2015 03/07/2015 Sivakumar Gómez MD labs q0406ta7-4g28-6v89-8vds-x6804c3f08am 03/07/2015 03/07/2015 Sivakumar Gómez MD labs 3q656djj-1802-5931-542x-352n5c0m7rq0 03/07/2015 03/07/2015 Sivakumar Gómez MD labs qiq452l2-ogc5-2s02-5668-871tqr8u582l 03/07/2015 03/07/2015 Sivakumar Gómez MD labs jk9b7099-2849-8h8e-z408-1l3316e6yy55 03/07/2015 03/07/2015 Sivakumar Gómez MD labs 6q0817xp-t187-8cwk-le06-e25qi1a44877 03/07/2015 03/07/2015 Sivakumar Gómez MD labs 0e8e0n26-265a-2994-q900-b3di5v1r19v3 03/07/2015 03/07/2015 Sivakumar Gómez MD labs 3h7a9v0s-85a4-3td1-o5v1-974722b478c5 03/07/2015 03/07/2015 Sivakumar Gómez MD labs 434scf52-jg74-5fmk-n509-4601gcpgh638 03/07/2015 03/07/2015 Sivakumar Gómez MD labs 2039722g-u929-0e1v-3h3v-l5817zpm631v 03/07/2015 03/07/2015 Sivakumar Gómez MD labs h3he6561-1504-2z4g-xo11-1020vn2731fh 03/07/2015 03/07/2015 Sivakumar Gómez MD labs ci0gn8q0-4cp9-9934-y9a5-53v124j4lnst 03/07/2015 03/07/2015 Sivakumar Gómez MD labs 675x6hy8-43tj-965m-b752-e66xyxbqa62g 03/07/2015 03/07/2015 Sivakumar Gómez MD labs 06c7x78y-37uk-7dv2-9f0r-n3l601qqr821 03/07/2015 03/07/2015 Sivakumar Gómez MD labs 5450j2cy-afuh-7cmr-65u0-04vlc4u6xj43 03/07/2015 03/07/2015 Sivakumar Gómez MD labs b636435j-uer3-5d9k-356l-4e621lezl738 03/07/2015 03/07/2015 Sivakumar Gómez MD labs 05u07j23-9n73-3ono-45u2-31j585yj8j09 03/07/2015 03/07/2015 Sivakumar Gómez MD labs 00o5y523-7z5x-1s8f-6108-893b924t3545 03/07/2015 03/07/2015 Sivakumar Gómez MD labs jr75oph6-2il0-47x3-7704-kht8911afe70 03/07/2015 03/07/2015 Sivakumar Gómez MD labs 3sfh7y14-5036-3167-0sk7-76a8td02w756 03/07/2015 03/07/2015 Sivakumar Gómez MD labs 8ld03a51-x233-4027-20yk-w707510437w3 03/07/2015 03/07/2015 Sivakumar Gómez MD labs 97167375-07ue-383c-y427-15i22x789oww 03/07/2015 03/07/2015 Sivakumar Gómez MD labs xji9z682-06mr-41c0-6dv2-8q2y20cyh640 03/07/2015 03/07/2015 Sivakumar Gómez MD labs s63p19ok-lml6-90t6-88x7-n4map8407f22 03/07/2015 03/07/2015 Sivakumar Gómez MD Labs 8iq6vlkr-7004-14b5-93ep-326h4a532t60 03/08/2015 03/08/2015 Sivakumar Gómez MD Labs k8o1m4ny-3398-91br-i532-843i151i5ypv 03/08/2015 03/08/2015 Sivakumar Gómez MD Labs 1um854sv-7w01-277h-8v03-9t84sk3u59kf 03/08/2015 03/08/2015 Sivakumar Gómez MD Labs n0xnzp29-rb5j-395x-j762-qyt526n14s10 03/08/2015 03/08/2015 Sivakumar Gómez MD Labs o80b7378-jqmg-5a3b-f7qo-5ipj519mmaen 03/08/2015 03/08/2015 Sivakumar Gómez MD Labs a5t5i1c2-i42d-43z3-m83r-7l140q81uc02 03/08/2015 03/08/2015 Sivakumar Gómez MD Labs 974l9281-g1pp-74w7-pg87-2o9b9x41ef64 03/08/2015 03/08/2015 Sivakumar Gómez MD Labs w24v7m98-u515-0hcz-095d-iy300eox4s6w 03/08/2015 03/08/2015 Sivakumar Gómez MD Labs 3l2169kw-0p01-5bb1-2675-25b09m81an66 03/08/2015 03/08/2015 Sivakumar Gómez MD Labs 4k6o538i-53y1-95h6-lc87-5r50pqy7054k 03/08/2015 03/08/2015 Sivakumar Gómez MD Labs y579z988-8p7e-3d2y-8824-4x458447d0wd 03/08/2015 03/08/2015 Sivakumar Gómez MD Labs 12y245iw-9ves-5448-h01n-075g70n45m2n 03/08/2015 03/08/2015 Sivakumar Gómez MD Labs 254oq948-506y-1644-c0td-90450nk2wm3w 03/08/2015 03/08/2015 Sivakumar Gómez MD Labs 7k6kq124-4sg5-4sk2-d30t-k500877qm2l8 03/08/2015 03/08/2015 Sivakumar Gómez MD Labs kz4n4g6p-f4w1-9ec3-q176-i612h3534u6n 03/08/2015 03/08/2015 Sivakumar Gómez MD Labs 013kjmau-3j20-066i3x22-002x-2f83-515c87926303 03/08/2015 03/08/2015 Sivakumar Gómez MD Labs jhbf049b-2949-4144-6767-221sea752ko1 03/08/2015 03/08/2015 Sivakumar Gómez MD Labs o78j41tm-j9y5-0sf5-6hty-x02j60488y89 03/08/2015 03/08/2015 Sivakumar Gómez MD Labs 6tu40ly8-4389-2j6r-okp8-10gd0u1066jt 03/08/2015 03/08/2015 Sivakumar Gómez MD Labs f875gw43-8429-88i4-97fx-40ete16p0bln 03/08/2015 03/08/2015 Sivakumar Gómez MD Labs h9udq5dk-m612-0r12-d24j-hcz9w6g9x6w8 03/08/2015 03/08/2015 Sivakumar Gómez MD Labs 87yi4bn0-fg8w-1421-4ajj-r1qky677fi55 03/08/2015 03/08/2015 Sivakumar Gómez MD Labs [id number]n13 03/08/2015 03/08/2015 Sivakumar Gómez MD Labs 9850p4b2-7699-7689-101p-e51m9968n418 03/08/2015 03/08/2015 Sivakumar Gómez MD 1 mo f/u 42w214x1-46mg-0fj5-h760-6nw23dl9q1vy 03/14/20 15 03/14/2015 Sivakumar Gómez MD 1 mo f/u v42d507g-6i0b-29s3-424o-896y303mm698 03/14/20 15 03/14/2015 Sivakumar Gómez MD 1 mo f/u 989eoop3-p720-127t-t871-090obc462ud7 03/14/20 15 03/14/2015 Sivakumar Gómez MD 1 mo f/u 26c13vwi-undu-6pfb-o899-521a522a32dl 03/14/20 15 03/14/2015 Sivakumar Gómez MD 1 mo f/u 11dy2tp3-v55f-7563-1543-ek8179929xi7 03/14/20 15 03/14/2015 Sivakumar Gómez MD 1 mo f/u j2611190-47c0-198g-ajk9-lvr2663c4300 03/14/20 15 03/14/2015 Sivakumar Gómez MD 1 mo f/u hjfntzu1-xpnw-9608-y47a-cjtz5c05b253 03/14/20 15 03/14/2015 Sivakumar Gómez MD 1 mo f/u 3efxzs19-71m6-3288-rn2o-584bx6nbr9j4 03/14/20 15 03/14/2015 Sivakumar Gómez MD 1 mo f/u v829l798-i885-514p-8jp0-t40477441h6q 03/14/20 15 03/14/2015 Sivakumar Gómez MD 1 mo f/u ygrk5vl7-o54q-84hc-wd3e-5907v649s0q7 03/14/20 15 03/14/2015 Sivakumar Gómez MD 1 mo f/u 00ucvf17-jhk6-67bc-8124-83a9c125486q 03/14/20 15 03/14/2015 Sivakumar Gómez MD 1 mo f/u 5512k887-w2dv-8x08-fwyd-r302770m6545 03/14/20 15 03/14/2015 Sivakumar Gómez MD 1 mo f/u 4yf8zg89-353i-1i16-zy19-20v9t0j9j70s 03/14/20 15 03/14/2015 Sivakumar Gómez MD 1 mo f/u 32y36187-dj36-7743-rx2v-6u8jz4nj475h 03/14/20 15 03/14/2015 Sivakumar Gómez MD 1 mo f/u 6b5i4u7x-x09p-1b7q-ux07-0991s1hb6322 03/14/20 15 03/14/2015 Sivakumar Gómez MD 1 mo f/u m5175yr3-2e56-6j15-58rh-640530262826 03/14/20 15 03/14/2015 Sivakumar Gómez MD PEER TO PEER 318tg902-b7d9-4b6b-h0p4-768876x33j7q 03/14/20 15 03/14/2015 Sivakumar Gómez MD PEER TO PEER pavc6978-vc35-2002-8yv7-o1310s452j5d 03/14/20 15 03/14/2015 Sivakumar Gómez MD PEER TO PEER o06e34y8-3v6q-0221-w5kz-4shn9mu121dh 03/14/20 15 03/14/2015 Sivakumar Gómez MD PEER TO PEER 33k1de47-tph9-3dx9-433s-y7x5bsh40wu7 03/14/20 15 03/14/2015 Sivakumar Gómez MD PEER TO PEER zu12a3x0-6447-8h3c-afo2-5p5m3213k5t8 03/14/20 15 03/14/2015 Sivakumar Gómez MD PEER TO PEER 6v6u4at7-n7c6-5417-q2f8-zd4y93n5d58u 03/14/20 15 03/14/2015 Sivakumar Gómez MD PEER TO PEER c464e962-5o9t-70up-w407-z51ts2th1yw1 03/14/20 15 03/14/2015 Sivakumar Gómez MD PEER TO PEER 45u8476k-6393-671a-5s36-s47058828743 03/14/20 15 03/14/2015 Sivakumar Gómez MD PEER TO PEER vl3j0143-844g-73p8-v677-x32097y59c7z 03/14/20 15 03/14/2015 Sivakumar Gómez MD PEER TO PEER y9i5623a-d220-79js-psl0-5jzps12y11xe 03/14/20 15 03/14/2015 Sivakumar Gómez MD PEER TO PEER 27k19705-74nj-9l4n-8c77-12o7h5wk0830 03/14/20 15 03/14/2015 Sivakumar Gómez MD PEER TO PEER 571xe448-k60l-35ce-ib23-9xk1pi0li3m1 03/14/20 15 03/14/2015 Sivakumar Gómez MD PEER TO PEER 7584fmli-qvnj-2722-8dda-f46a5yw1x229 03/14/20 15 03/14/2015 Sivakumar Gómez MD PEER TO PEER hr3tlq18-3165-66q3-3oij-51171506315h 03/14/20 15 03/14/2015 Sivakumar Gómez MD PEER TO PEER 5fy91gsz-d587-7k49-pmv3-90y79l8xq418 03/14/20 15 03/14/2015 Sivakumar Gómez MD PEER TO PEER 0uv76972-2068-9e05-0b45-5s6912y4z7m8 03/14/20 15 03/14/2015 Sivakumar Gómez MD PEER TO PEER i91204e8-287s-19he-wm53-043sx1r32608 03/14/20 15 03/14/2015 Sivakumar Gómez MD 1 mo f/u 3f877iul-14hw-9c25-n2po-v9s27555t4u3 03/14/20 15 03/14/2015 Sivakumar Gómez MD 1 mo f/u ha0042vn-191u-9c34-6789-7405955q5087 03/14/20 15 03/14/2015 Sivakumar Gómez MD 1 mo f/u nvha0221-4hd6-1tv5-2cws-235wo0f90121 03/14/20 15 03/14/2015 Sivakumar Gómez MD 1 mo f/u 398f195p-49h7-11p7-d0mr-047h5awa080u 03/14/20 15 03/14/2015 Sivakumar Gómez MD 1 mo f/u 81g340oo-6cw7-049h-auli-a6ascw88526u 03/14/20 15 03/14/2015 Sivakumar Gómez MD 1 mo f/u t65qj414-m5k4-6458-q88z-q3o8irf10091 03/14/20 15 03/14/2015 Sivakumar Gómez MD 1 mo f/u c39zmhb9-1948-829r-651o-3vc279305718 03/14/20 15 03/14/2015 Sivakumar Gómez MD PEER TO PEER 672t3894-yv22-71ng-9y07-u4h28p752p90 03/14/20 15 03/14/2015 Sivakumar Gómez MD PEER TO PEER 42940z29-5950-7602-t070-jc277s6aq600 03/14/20 15 03/14/2015 Sivakumar Gómez MD PEER TO PEER 74lf7575-j9n5-8b4t-ti71-69466j6716k0 03/14/20 15 03/14/2015 Sivakumar Gómez MD PEER TO PEER ez86874r-b9f6-95w3-a712-9549z476l401 03/14/20 15 03/14/2015 Sivakumar Gómez MD PEER TO PEER 87189992-t931-39hv-2tef-3723401u59e9 03/14/20 15 03/14/2015 Sivakumar Gómez MD PEER TO PEER 0x36x954-1fnf-79p2-05e7-73rr31w5f150 03/14/20 15 03/14/2015 Sivakumar Gómez MD PEER TO PEER p24333zw-wzg2-2bgd-3z4g-01ump1v394k1 03/14/20 15 03/14/2015 Sivakumar Gómez MD MRI 2330ygf3-8u69-6t03-m7t3-mvg92xq6nz41 04/07/2015 04/07/2015 Sivakumar Gómez MD MRI 0p46a7g9-akw2-7212-z242-09qwh9527ys2 04/07/2015 04/07/2015 Sivakumar Gómez MD MRI c561o352-7945-2950-d52c-94s2zwmy84h4 04/07/2015 04/07/2015 Sivakumar Gómez MD MRI pdbq260n-dg93-5j8e-7c4c-s603i57xu1s0 04/07/2015 04/07/2015 Sivakumar Gómez MD MRI 849878r7-w258-1497-pl5q-7dnh0736k873 04/07/2015 04/07/2015 Sivakumar Gómez MD MRI 2n9q5226-13r5-0i1z-50g2-3y8e139u357l 04/07/2015 04/07/2015 Sivakumar Gómez MD MRI 8z37ae50-j389-9k28-l8ey-mf7mxg0006ib 04/07/2015 04/07/2015 Sivakumar Gómez MD MRI 131jy4sa-4ezj-7276-ru4f-5rv569jz82om 04/07/2015 04/07/2015 Sivakumar Gómez MD MRI 837744x5-3q4c-7704-u501-312r87944j79 04/07/2015 04/07/2015 Sivakumar Gómez MD MRI 4s4rvsw7-qx3s-31v0-u844-f4u9504l9d12 04/07/2015 04/07/2015 Sivakumar Gómez MD MRI 4b17p963-6v81-8u63-b299-y3x5tx06a5x3 04/07/2015 04/07/2015 Sivakumar Gómez MD MRI n701xm45-hu04-22z0-9g16-s5zj56p81ju8 04/07/2015 04/07/2015 Sivakumar Gómez MD MRI 73q31726-0956-9131-f198-u3y8rx0yfz1q 04/07/2015 04/07/2015 Sivakumar Gómez MD MRI b9r4575a-9t98-5nvu-fg18-mhj0np4122pc 04/07/2015 04/07/2015 Sivakumar Gómez MD MRI 9290j636-774x-13hw-20h7-5943kl20fu20 04/07/2015 04/07/2015 Sivakumar Gómez MD MRI sm7007w6-y4y7-241m-coq9-785015057z0c 04/07/2015 04/07/2015 Sivakumar Gómez MD MRI bqh646s1-j369-6phe-z0ok-3z0cc05do0i6 04/07/2015 04/07/2015 Sivakumar Gómez MD MRI 8087439q-6oxc-9qg6-j500-g4s2mkvyh656 04/07/2015 04/07/2015 Sivakumar Gómez MD MRI y8f7s3bd-6738-7x47-w33a-3374n11o3448 04/07/2015 04/07/2015 Sivakumar Gómez MD MRI 82q0ug63-f264-0359-5843-g08c3f730p60 04/07/2015 04/07/2015 Sivakumar Gómez MD MRI kx62t459-kd6o-68zy-e769-0go6e8jx994g 04/07/2015 04/07/2015 Sivakumar Gómez MD MRI jw1810sw-y933-526j-258w-wt78131p0ch6 04/07/2015 04/07/2015 Sivakumar Gómez MD MRI sw012996-igdt-7dtn-8x9x-675408o7136h 04/07/2015 04/07/2015 Sivakumar Gómez MD MRI 6899a546-8856-5670-sn61-2nbc736xyh45 04/07/2015 04/07/2015 Sivakumar Gómez MD refill 0ki31jl2-gbl6-05y8-97w4-17h8198283sn 05/06/20 15 05/06/2015 Sivakumar Gómez MD refill 5bkdk6v6-6oc9-6273-1r78-cp12x2bw2uly 05/06/20 15 05/06/2015 Sivakumar Gómez MD refill f6tcg068-y6x2-6ro6-2s3y-91px58vz06o4 05/06/20 15 05/06/2015 Sivakumar Gómez MD refill 0i69q723-k2l5-4k5g-dtr9-0a3u8iz154p7 05/06/20 15 05/06/2015 Sivakumar Gómez MD refill rd4714a7-j9n7-1d3j-4273-8076c805lp75 05/06/20 15 05/06/2015 Sivakumar Gómez MD refill 87mk7509-4fkn-5904-ci7q-5d4x770lvf2w 05/06/20 15 05/06/2015 Sivakumar Gómez MD refill 1hi63j8r-3o2c-867h-p78p-44209s7166x6 05/06/20 15 05/06/2015 Sivakumar Gómez MD refill 9147m0wo-b7ae-7l3y-18b3-61f1er9ot1nh 05/06/20 15 05/06/2015 Sivakumar Gómez MD refill 7tpp4g01-4r99-6f57-e769-m822oi3u42oo 05/06/20 15 05/06/2015 Sivakumar Gómez MD refill 5nz1f983-5670-09h0-82l7-64097660s6de 05/06/20 15 05/06/2015 Sivakumar Gómez MD refill 6d712767-z848-0754-04nh-v9b0g248r642 05/06/20 15 05/06/2015 Sivakumar Gómez MD refill 230z4f7w-zv91-2334-v04j-481d8yv7ecit 05/06/20 15 05/06/2015 Sivakumar Gómez MD refill x7vb4177-6422-694b-wkr4-1n517612v3ti 05/06/20 15 05/06/2015 Sivakumar Gómez MD refill 88191632-h2ln-580a-m884-72660452o7z6 05/06/20 15 05/06/2015 Sivakumar Gómez MD refill 68kgit6a-ax76-7c25-0100-n0f27b8f402v 05/06/20 15 05/06/2015 Sivakumar Gómez MD refill 7z91puc7-3i5l-0bpx-0t83-zb5jxn3dq93c 05/06/20 15 05/06/2015 Sivakumar Gómez MD refill 9k0o1824-e6z4-4771-9667-gs32arwd9416 05/06/20 15 05/06/2015 Sivakumar Gómez MD refill 3567s79r-q24d-5roa-8696-432j58n3mc58 05/06/20 15 05/06/2015 Sivakumar Gómez MD refill 90eoj570-g74z-1p09-g6m3-0c636b3i3b57 05/06/20 15 05/06/2015 Sivakumar Gómez MD refill 67987302-kv2n-8201-x50w-330bl56l64j1 05/06/20 15 05/06/2015 Sivakumar Gómez MD refill 3a3bj1v2-87wa-883u-v2a3-v076170118tn 05/06/20 15 05/06/2015 Sivakumar Gómez MD refill w741525l-103k-19px-mzc7-10sc7i10ux5r 05/06/20 15 05/06/2015 Sivakumar Gómez MD MRI 4076n5j6-4344-09hr-i26q-p62k910de009 05/09/2015 05/09/2015 Sivakumar Gómez MD MRI j68hq9y1-396n-35a8-7605-2oh7a113r3s1 05/09/2015 05/09/2015 Sivakumar Gómez MD MRI 64w1e2d6-b82p-6fe5-15yj-210y0o6ha52r 05/09/2015 05/09/2015 Sivakumar Gómez MD MRI 519j6199-17ht-7f41-e631-z942w8jn6310 05/09/2015 05/09/2015 Sivakumar Gómez MD MRI 75545128-4x87-71w8-ut07-t0336pz22490 05/09/2015 05/09/2015 Sivakumar Gómez MD MRI 6q2i1993-d705-50xy-c8o9-202o4anzy903 05/09/2015 05/09/2015 Sivakumar Gómez MD MRI 84k8fv7l-5r71-27y0-gu04-983e1n998234 05/09/2015 05/09/2015 Sivakumar Gómez MD MRI o5n494js-e8u4-733w-313d-959c3912h9vx 05/09/2015 05/09/2015 Sivakumar Gómez MD MRI w7xrppic-6y4q-7id3-a29y-63011cvw480v 05/09/2015 05/09/2015 Sivakumar Gómez MD MRI 30u33832-wkkt-63g6-t8iv-5930i739s2eh 05/09/2015 05/09/2015 Sivakumar Gómez MD MRI 6450485y-07vm-1w31-0ls4-7ib7rhso5vf7 05/09/2015 05/09/2015 Sivakumar Gómez MD MRI msl428n8-qy59-7ueq-v67c-6hk726u59te0 05/09/2015 05/09/2015 Sivakumar Gómez MD MRI 19760s22-yzdh-5190-gj85-861992fy3o66 05/09/2015 05/09/2015 Sivakumar Gómez MD MRI 3du44g9d-5784-5de2-c569-53z8p89p199f 05/09/2015 05/09/2015 Sivakumar Gómez MD MRI mti76534-s4i5-087c-qp18-441315v85905 05/09/2015 05/09/2015 Sivakumar Gómez MD MRI 84rlbe11-8j4k-7m27-f056-11w58op804f9 05/09/2015 05/09/2015 Sivakumar Gómez MD MRI i576qw7o-339k-119p-02p1-994zhf3244x2 05/09/2015 05/09/2015 Sivakumar Gómez MD MRI ps691w66-0y5o-8vt0-r323-i4rsz317f8os 05/09/2015 05/09/2015 Sivakumar Gómez MD MRI r5u080w7-2213-8148-5885-0sfh83743801 05/09/2015 05/09/2015 Sivakumar Gómez MD MRI 32o1987d-02ry-9r0i-9o16-951wcbh6245v 05/09/2015 05/09/2015 Sivakumar Gómez MD MRI 47o042q2-916t-0902-m94a-1o1067uy4h4e 05/09/2015 05/09/2015 Sivakumar Gómez MD MRI 409pv6h3-5256-046x-gz1z-yd5624y4p771 05/09/2015 05/09/2015 Sivakumar Gómez MD Add on 05/12 c29zt712-qjjf-7449-hlf8-u0ka32a4n9b5 05/09/2005/09/2015 Sivakumar Gómez MD Add on 05/12 168a9xqv-27r9-1x77-s9x9-99b17fc8t9i3 05/09/20 15 05/09/2015 Sivakumar Gómez MD Add on 05/12 eg6cf9d8-6a7h-6008-s2w7-43v19syw5fx2 05/09/20 15 05/09/2015 Sivakumar Gómez MD Add on 05/12 0715u699-m9p8-1aw2-i000-h813e9r5756s 05/09/20 15 05/09/2015 Sivakumar Gómez MD Add on 05/12 16s30ta1-t00b-3m31-j98r-314u8mq25903 05/09/20 15 05/09/2015 Sivakumar Gómez MD Add on 05/12 mp464ad4-lr97-8g75-5b64-l78069ek6l5d 05/09/20 15 05/09/2015 Sivakumar Gómez MD Add on 05/12 ne6hm3y7-q3r6-2r2a-d3n1-58p38gf0q3t6 05/09/20 15 05/09/2015 Sivakumar Gómez MD Add on 05/12 9c9t406o-n698-4739-pos8-ix842i74n9v6 05/09/20 15 05/09/2015 Sivakumar Gómez MD Add on 05/12 g0es7hw2-p293-5jx6-30wj-0f47efq93j38 05/09/20 15 05/09/2015 Sivakumar Gómez MD Add on 05/12 x6ui05yk-g760-4cpz-n57x-p05d904d448d 05/09/20 15 05/09/2015 Sivakumar Gómez MD Add on 05/12 40ha07l8-5p00-4262-os9s-rd830z45m933 05/09/20 15 05/09/2015 Sivakumar Gómez MD Add on 05/12 74909591-7005-3q55-if62-9w2q6y21ggq7 05/09/20 15 05/09/2015 Sivakumar Gómez MD Add on 05/12 4s41fcw8-q931-204b-412d-5x63806ovy38 05/09/20 15 05/09/2015 Sivakumar Gómez MD Add on 05/12 7622m441-6d6x-8in4-u00m-z36j67a95b6c 05/09/20 15 05/09/2015 Sivakumar Gómez MD Add on 05/12 89070y33-w2sm-9272-gu33-fyx8902104ke 05/09/20 15 05/09/2015 Sivakumar Gómez MD Add on 05/12 99l288b4-tnn2-141f-k7e7-2n74p8zh2ehm 05/09/20 15 05/09/2015 Sivakumar Gómez MD Add on 05/12 68k1wkg8-1529-15d9-33b0-3vz8m8ror842 05/09/20 15 05/09/2015 Sivakumar Gómez MD Add on 05/12 g94x5k4a-4yo5-1561-4626-m8u2m4a06cjj 05/09/20 15 05/09/2015 Sivakumar Gómez MD Add on 05/12 m6639943-9xvc-8rfp-82u8-343n420cyv9o 05/09/20 15 05/09/2015 Sivakumar Gómez MD Add on 05/12 k5902690-y4k2-9708-lcgj-egizra6728cy 05/09/20 15 05/09/2015 Sivakumar Gómez MD Add on 05/12 84118725-9401-02kl-bpwe-r8u687843049 05/09/20 15 05/09/2015 Sivakumar Gómez MD Add on 05/12 4g3cep8f-b881-7p2c-g6k4-30s6g95e5kf1 05/09/20 15 05/09/2015 Sivakumar Gómez MD PEER TO PEER 4ic66565-4d6r-1325-fm27-pyyh84609211 05/11/20 15 05/11/2015 Sivakumar Gómez MD PEER TO PEER 4x0d2j10-2712-6646-l37z-5lp7f20xz8ru 05/11/20 15 05/11/2015 Sivakumar Gómez MD PEER TO PEER w4w29461-ia96-48f1-b7j5-p5724t13vm38 05/11/20 15 05/11/2015 Sivakumar Gómez MD PEER TO PEER 728n10a7-53c8-865x-hj2m-5028hv3w8c22 05/11/20 15 05/11/2015 Sivakumar Gómez MD PEER TO PEER xf63pxh0-1656-2488-59wv-ood133928iu0 05/11/20 15 05/11/2015 Sivakumar Gómez MD PEER TO PEER 2xj91o58-87t5-36c0-q791-l932p9w249z2 05/11/20 15 05/11/2015 Sivakumar Gómez MD PEER TO PEER 302599v1-3j1x-7rel-c123-8860n4923e5k 05/11/20 15 05/11/2015 Sivakumar Gómez MD PEER TO PEER l90pc1lj-0r67-0m61-wp3n-pe4iry32401i 05/11/20 15 05/11/2015 Sivakumar Gómez MD PEER TO PEER 3g923044-h2tc-8489-2893-o03018375o37 05/11/20 15 05/11/2015 Sivakumar Gómez MD PEER TO PEER 5yk8w823-g14g-0s4p-e525-040n73625s2r 05/11/20 15 05/11/2015 Sivakumar Gómez MD PEER TO PEER mf3tv9l3-2005-9hnj-0337-209l18h249tx 05/11/20 15 05/11/2015 Sivakumar Gómez MD PEER TO PEER 22we89s0-y544-0715-00w7-0q263w069022 05/11/20 15 05/11/2015 Sivakumar Gómez MD PEER TO PEER 3686249p-8j2p-7kf2-l1xu-93i8ei667rj3 05/11/20 15 05/11/2015 Sivakumar Gómez MD PEER TO PEER 6v4o1b2k-r8f8-3320-v95p-555yvawdtnu2 05/11/20 15 05/11/2015 Sivakumar Gómez MD PEER TO PEER nrl0xq83-aka1-6899-ar6g-7k885k6s1s1x 05/11/20 15 05/11/2015 Sivakumar Gómez MD PEER TO PEER 73lb4205-a325-72x3-timt-d86xh7vs09zn 05/11/20 15 05/11/2015 Sivakumar Gómez MD PEER TO PEER 9728f193-od1y-53dk-3e06-2m90k651il41 05/11/20 15 05/11/2015 Sivakumar Gómez MD PEER TO PEER gj3b74w2-262r-539c-2323-g2u06r23m98f 05/11/20 15 05/11/2015 Sivakumar Gómez MD PEER TO PEER 72br8fu3-gba5-0k22-o4d3-45qrbv3529w6 05/11/20 15 05/11/2015 Sivakumar Gómez MD PEER TO PEER t2a54685-3975-0to7-w5h6-2cg1mhe587g4 05/11/20 15 05/11/2015 Sivakumar Gómez MD PEER TO PEER 2420586e-2l18-5m18-j053-92543y479996 05/11/20 15 05/11/2015 Sivakumar Gómez MD PEER TO PEER 8r40ebd1-329k-9f19-za0s-3261561177l4 05/11/20 15 05/11/2015 Sivakumar Gómez MD RX Request-- Tramadol 11mvm3a7-dx96-27b0-tth1-51n5l3s52994 05/16/2015 05/16/2015 Sivakumar Gómez MD RX Request-- Tramadol 5i39a0a9-wx3b-1i9c-e36b-686ca0oq98wb 05/16/2015 05/16/2015 Sivakumar Gómez MD RX Request-- Tramadol 1733w886-73f7-6qw8-sm76-95ayj56412l8 05/16/2015 05/16/2015 Sivakumar Gómez MD RX Request-- Tramadol 52f63320-2r3l-3x04-9a96-y13573q64089 05/16/2015 05/16/2015 Sivakumar Gómez MD RX Request-- Tramadol yd672a51-4njr-8gbq-8m02-3m758c1fxym3 05/16/2015 05/16/2015 Sivakumar Gómez MD RX Request-- Tramadol 0wjz50z3-y393-9e7u-6f24-3844858p909c 05/16/2015 05/16/2015 Sivakumar Gómez MD RX Request-- Tramadol tc0i89x7-44r0-6560-o741-6125srd2k01v 05/16/2015 05/16/2015 Sivakumar Gómez MD RX Request-- Tramadol 7r33547u-9x5k-1o5d-99p5-ev2y051t052n 05/16/2015 05/16/2015 Sivakumar Gómez MD RX Request-- Tramadol iz157uzv-987r-710q-60ei-t36x7m491s16 05/16/2015 05/16/2015 Sivakumar Gómez MD RX Request-- Tramadol 052xvgmi-7hkr-63b595y4-71p0-072983lu6n3p 05/16/2015 05/16/2015 Sivakumar Gómez MD RX Request-- Tramadol x9an6434-83p5-35wu-in49-57998e993805 05/16/2015 05/16/2015 Sivakumar Gómez MD RX Request-- Tramadol y0k395jk-9y79-5303-a312-195o9h20u7r9 05/16/2015 05/16/2015 Sivakumar Gómez MD RX Request-- Tramadol 9u6ta591-g635-6d9z-df86-w262580fjmig 05/16/2015 05/16/2015 Sivakumar Gómez MD RX Request-- Tramadol 27z02083-t098-9890-99k8-p4ci457i09u4 05/16/2015 05/16/2015 Sivakumar Gómez MD RX Request-- Tramadol 9q00mg9d-1852-99b3-532v-828177r9t596 05/16/2015 05/16/2015 Sivakumar Gómez MD RX Request-- Tramadol 08ha144i-6z4x-98ye-sgra-8zo2r76817t7 05/16/2015 05/16/2015 Sivakumar Gómez MD RX Request-- Tramadol 39oroc3g-53q5-0052-812r-42x36g19ih61 05/16/2015 05/16/2015 Sivakumar Gómez MD RX Request-- Tramadol 1lw12z51-d0w5-795c-t2vf-31325k4e596o 05/16/2015 05/16/2015 Sivakumar Gómez MD RX Request-- Tramadol x1o83421-59e7-823n-tx6v-3fv6v04p062f 05/16/2015 05/16/2015 Sivakumar Gómez MD RX Request-- Tramadol pr4986f9-2410-6c5c-mji3-46uegd6ug351 05/16/2015 05/16/2015 Sivakumar Gómez MD RX Request-- Tramadol 06d79b8d-28c1-6a66-2bbd-31w11a4a55o4 05/16/2015 05/16/2015 Sivakumar Gómez MD RX Request-- Tramadol q54i8dmm-i716-63sy-xi28-08a3z4gr5t5t 05/16/2015 05/16/2015 Sivakumar Gómez MD Balance 3337889b-8m09-3ah7-z06r-icmx48f88ar3 05/18/20 15 05/18/2015 Sivakumar Gómez MD Balance 07sgg2jm-133i-0785-735t-u040693x56t3 05/18/20 15 05/18/2015 Sivakumar Gómez MD Balance 1413sf28-17s4-2zna-27k9-iyfz17k73028 05/18/20 15 05/18/2015 Sivakumar Gómez MD Balance 51s93782-3035-34c7-t6iw-6qm9fp62y631 05/18/20 15 05/18/2015 Sivakumar Gómez MD Balance 6b9y0444-oo55-0709-06jk-5g63d24mu0l8 05/18/20 15 05/18/2015 Sivakumar Gómez MD Balance 9p45463f-0472-750w-y54p-89lm6typ44gv 05/18/20 15 05/18/2015 Sivakumar Gómez MD Balance 2hir76g6-5o50-98o4-7d3u-671e60917290 05/18/20 15 05/18/2015 Sivakumar Gómez MD Balance 5qs12iw2-20n3-87k5-h505-k4849y02mv48 05/18/20 15 05/18/2015 Sivakumar Gómez MD Balance 7p76184i-t394-8bmc-gq8j-j4oa57949p7b 05/18/20 15 05/18/2015 Sivakumar Gómez MD Balance i10054fd-853f-2305-2i77-ol31f163lgi1 05/18/20 15 05/18/2015 Sivakumar Gómez MD Balance 85i2ga71-5799-6371-zy25-18f34de884ro 05/18/20 15 05/18/2015 Sivakumar Gómez MD Balance bicq2578-q6he-24bw-w026-b44m6q076m83 05/18/20 15 05/18/2015 Sivakumar Gómez MD Balance r3vgdg24-ht4p-8n03-s0u3-167i149zv822 05/18/20 15 05/18/2015 Sivakumar Gómez MD Balance g9262ro2-2h4j-86kc-pz63-299a055qhg1x 05/18/20 15 05/18/2015 Sivakumar Gómez MD 1 mo f/u 22y2338e-3o05-9hr7-6921-117j0j8189ih 05/18/20 15 05/18/2015 Sivakumar Gómez MD 1 mo f/u 5n19104g-2m97-481p-0812-7nnh4h851d54 05/18/20 15 05/18/2015 Sivakumar Gómez MD 1 mo f/u a3588d48-33eq-0xg5-86o0-is475797f5c1 05/18/20 15 05/18/2015 Sivakumar Gómez MD 1 mo f/u 7g5doj5x-i85v-4g88-d26i-ycl711237t87 05/18/20 15 05/18/2015 Sivakumar Gómez MD 1 mo f/u 39570966-955r-1572-ku84-41346325982g 05/18/20 15 05/18/2015 Sivakumar Gómez MD 1 mo f/u 8r176q66-7uxp-2m23-n7uk-zvep192623u2 05/18/20 15 05/18/2015 Sivakumar Gómez MD 1 mo f/u j7yb65g0-gf94-171i-1uq4-v12946igdg7z 05/18/20 15 05/18/2015 Sivakumar Gómez MD 1 mo f/u p968997g-6732-8444-kd6c-p6d7uh247b5u 05/18/20 15 05/18/2015 Sivakumar Gómez MD 1 mo f/u 7s129460-h5tw-1es8-nr5m-p4470h61m611 05/18/20 15 05/18/2015 Sivakumar Gómez MD 1 mo f/u 14j34y89-326e-55u5-6t0o-9266ret686za 05/18/20 15 05/18/2015 Sivakumar Gómez MD 1 mo f/u 6fy192lc-3y4s-655i-w749-1ai07e2o3048 05/18/20 15 05/18/2015 Sivakumar Gómez MD 1 mo f/u 7adzf964-o7na-4679-2k1u-1dtebk488453 05/18/20 15 05/18/2015 Sivakumar Gómez MD Balance 24i9d78w-77r5-45ly-3249-5180vb797o8v 05/18/20 15 05/18/2015 Sivakumar Gómez MD Balance 35391m32-8303-106e-h7to-d20pe0n69b74 05/18/20 15 05/18/2015 Sivakumar Gómez MD Balance yli03467-e671-5ff0-8s71-0v371v29c58u 05/18/20 15 05/18/2015 Sivakumar Gómez MD Balance 6064791p-282p-09y3-y1g3-6646219rni52 05/18/20 15 05/18/2015 Sivakumar Gómez MD Balance 4v1118c9-42e2-5495-7429-o2tw4l02w492 05/18/20 15 05/18/2015 Sivakumar Gómez MD Balance qy172ys4-f1s0-1j49-912a-8pxce433244w 05/18/20 15 05/18/2015 Sivakumar Gómez MD Balance x2105582-5411-2fbr-5942-28g4232055fr 05/18/20 15 05/18/2015 Sivakumar Gómez MD 1 mo f/u 0762hq2m-8v66-6o8s-c8d0-910glz32n61j 05/18/20 15 05/18/2015 Sivakumar Gómez MD 1 mo f/u n062343h-3p3u-3j45-t44j-4bo5p7s3340c 05/18/20 15 05/18/2015 Sivakumar Gómez MD 1 mo f/u 6q6mj6z1-3591-29r3-7kq9-a8253392t42x 05/18/20 15 05/18/2015 Sivakumar Gómez MD 1 mo f/u 40682816-6964-423x-7k71-08181vp40o9y 05/18/20 15 05/18/2015 Sivakumar Gómez MD 1 mo f/u oh979yzo-yw6x-9gz6-k8d6-q83u68085i45 05/18/20 15 05/18/2015 Sivakumar Gómez MD 1 mo f/u 79h53984-f47c-0q8h-0570-2q49sk691186 05/18/20 15 05/18/2015 Sivakumar Gómez MD 1 mo f/u pqqj6422-w2aw-5383-19g4-s799362052e8 05/18/20 15 05/18/2015 Sivakumar Gómez MD [employer] 6p705rm3-2s37-19z0-yh9o-82g0z3u4od61 06/17/20 15 06/17/2015 Sivakumar Gómez MD [employer] 3de22e11-5z04-8w9s-f8m5-wc4r194d45n1 06/17/20 15 06/17/2015 Sivakumar Gómez MD [employer] 0b3crp66-2o34-9377-ikgl-83j661t3un4f 06/17/20 15 06/17/2015 Sivakumar Gómez MD [employer] 9j62che8-d293-726r-m755-989995l61612 06/17/20 15 06/17/2015 Sivakumar Gómez MD [employer] m9sy6g76-4ju6-823h-3519-8k692bzf382r 06/17/20 15 06/17/2015 Sivakumar Gómez MD [employer] 30h11x9a-jtb0-94fs-8289-1m443v9634ru 06/17/20 15 06/17/2015 Sivakumar Gómez MD [employer] 0j106f91-iq0k-9o0o-u954-7nu11z65k006 06/17/20 15 06/17/2015 Sivakumar Gómez MD [employer] 77180x2e-fzv3-632p-nu68-88179o5psipl 06/17/20 15 06/17/2015 Sivakumar Gómez MD [employer] 0d13972i-b635-93lw-45nb-s7zv62k795b5 06/17/20 15 06/17/2015 Sivakumar Gómez MD [employer] 383d07ua-28z8-1y23-z6o0-7m8017sp5645 06/17/20 15 06/17/2015 Sivakumar Gómez MD [employer] 673p18n1-y515-94hi-96y3-2025k1162i37 06/17/20 15 06/17/2015 Sivakumar Gómez MD [employer] 68zlv845-9m9u-66m1-9145-64l27a41l8q3 06/17/20 15 06/17/[address]'S # 25j92ioy-l19y-6j67-54pi-2123f80845y6 06/17/20 15 06/17/[address]'S # 6jm39r1b-o35e-2735-b900-o390d6hko0ot 06/17/20 15 06/17/[address]'S # 29a1q96n-66y9-5q56-o533-43s91ep1c183 06/17/20 15 06/17/[address]'S # 36j7wp03-y956-9570-7298-10t91573sg56 06/17/20 15 06/17/[address]'S # e92z8t34-q5a7-7304-2878-9acu928f9865 06/17/20 15 06/17/[address]'S # qmv9o567-x131-08jx-1i31-yv829ke7fwr9 06/17/20 15 06/17/[address]'S # 261v2242-gf6s-8604-sb77-s6s628j980gd 06/17/20 15 06/17/[address]'S # 7677k622-010a-09g0-9024-t14g8235ev6b 06/17/20 15 06/17/[address]'S # 8m70kqx7-g068-9764-pa58-x75d4gq55d50 06/17/20 15 06/17/[address]'S # w6vu6b01-qv15-608i-jkm9-z51u7920e81i 06/17/20 15 06/17/[address]'S # 81753pk4-736i-6381-jo92-xj97b357sm6l 06/17/20 15 06/17/[address]'S # de650p44-w893-3580-2a9v-g4912ontv182 06/17/20 15 06/17/2015 Sivakumar Gómez MD [employer] v4o4mz13-407k-1s7u-053y-t72zhf4y5573 06/17/20 15 06/17/2015 iSvakumar Gómez MD [employer] 9hn8a82w-8k6v-8553-8k1d-853a0r80bc7y 06/17/20 15 06/17/2015 Sivakumar Gómez MD [employer] iv8r9fh1-f970-5f92-o154-646p521m1044 06/17/20 15 06/17/2015 Sivakumar Gómez MD [employer] 0p5ga866-087u-22w9-s9yi-x2593zs03q02 06/17/20 15 06/17/2015 Sivakumar Gómez MD [employer] y323gzr2-q294-3817-7j7v-p6z24kgd7f6n 06/17/20 15 06/17/2015 Sivakumar Gómez MD [employer] f4l43gu1-9n39-7649-6b2l-d92xr88637kd 06/17/20 15 06/17/2015 Sivakumar Gómez MD [employer] 0m634gr1-9i5t-005a-85rr-91bj846k7zf0 06/17/20 15 06/17/[address]'S # 484zm47m-mc93-9w0g-4q62-jx491d11xpf9 06/17/20 15 06/17/[address]'S # y5d82241-28h5-346s-mb70-9196x1q15h14 06/17/20 15 06/17/[address]'S # 80s7j2gu-qy57-8r6h-jxo6-r6d00w161731 06/17/20 15 06/17/[address]'S # y66bic8q-t5da-0792-97v8-w6y083715sgo 06/17/20 15 06/17/[address]'S # 12m228xr-p2mc-986x-s3s2-9uws27f7pck8 06/17/20 15 06/17/[address]'S # 10am315m-inv1-2c42-h282-c8013d529406 06/17/20 15 06/17/[address]'S # 0tqjm9p8-xb3f-46hu-n570-27af8562c87x 06/17/20 15 06/17/2015 Sivakumar Gómez MD Unknown hu1151fa-267z-3d1o-59lt-3758y9966160 07/27/20 15 07/27/2015 Sivakumar Gómez MD Unknown 97ug7931-8641-8577-y708-ryh5wipzbn95 07/27/20 15 07/27/2015 Sivakumar Gómez MD Unknown [id number]-p79y-q859321857a5 07/27/20 15 07/27/2015 Sivakumar Gómez MD Unknown 4282k6pi-63a3-0846-4573-1o1c4c668580 07/27/20 15 07/27/2015 Sivakumar Gómez MD Unknown un9r44g0-34j4-546w-u8e3-5v3684uine2m 07/27/20 15 07/27/2015 Sivakumar Gómez MD Unknown 63iy43no-r0t8-8gxf-2l14-t566c84caf06 07/27/20 15 07/27/2015 Sivakumar Gómez MD Unknown b6ljkvk3-44ue-66l5-d2t8-b73961y20rb0 07/27/20 15 07/27/2015 Sivakumar Gómez MD Unknown g5n358z4-mto0-3plb-kov4-253avc1l4z10 07/27/20 15 07/27/2015 Sivakumar Gómez MD Unknown 2mad16m1-8q92-9058-p6q2-m3i7x79y6w28 07/27/20 15 07/27/2015 Sivakumar Gómez MD Unknown 1t77q6d4-90mz-3053-i958-2f2775dx7b16 07/27/20 15 07/27/2015 Sivakumar Gómez MD Unknown qc3u47y3-7277-000m-lb0e-n674568v80s6 07/27/20 15 07/27/2015 Sivakumar Gómez MD Unknown 6haz962y-tc60-567f-k89k-673290867516 07/27/20 15 07/27/2015 Sivakumar Gómez MD Unknown 585d8zkj-7823-75yq-v332-4nlh74y4g4b0 07/27/20 15 07/27/2015 Sivakumar Gómez MD Unknown 3363kf4n-w80r-2d8a-510d-3plr4519mr3t 07/27/20 15 07/27/2015 Sivakumar Gómez MD Unknown [id number]-506r-d41k-15vcnt47s1n3 07/27/20 15 07/27/2015 Sivakumar Gómez MD Unknown [id number]-57m0-1764-0e0yyv9798s8 07/27/20 15 07/27/2015 Sivakumar Gómez MD Unknown c69u890k-2771-274g-cab0-6tj94f64w180 07/27/20 15 07/27/2015 Sivakumar Gómez MD Unknown m1522o52-z7n4-0231-gkvs-uv3r1u75oj30 07/27/20 15 07/27/2015 Sivakumar Gómez MD Unknown 0c04d13e-1h21-8143-h622-7545879gq0yd 07/27/20 15 07/27/2015 Sivakumar Gómez MD Unknown 3299nz0l-0627-4197-u0h1-s519p7b7521r 07/27/20 15 07/27/2015 Sivakumar Gómez MD Unknown 462s61y7-k8ji-6x0u-npby-uu3l66h8icod 07/27/20 15 07/27/2015 Sivakumar Gómez MD Unknown [id number]-k32n-5pf8-1i78-40d0gtg01618 07/27/20 15 07/27/2015 Sivakumar Gómez MD Unknown qkd3v615-f891-5ra4-e03t-565m210a7db8 07/27/20 15 07/27/2015 Sivakumar Gómez MD Unknown 127jvs88-2zpz-847x-d1ec-i239o79lf3iq 07/27/20 15 07/27/2015 Sivakumar Gómez MD Unknown [id number]-6t34nc4zu720 07/27/20 15 07/27/2015 Sivakumar Gómez MD Unknown [id number]-u56xzul33027 07/27/20 15 07/27/2015 Sivakumar Gómez MD Unknown c61giz28-y0yb-476a-3z90-4839j228z5q7 07/27/20 15 07/27/2015 Sivakumar Gómez MD Unknown ll41eoo5-9n2k-0t40-x116-7862g05t7988 07/27/20 15 07/27/2015 Sivakumar Gómez MD Unknown [id number]-3477-uo81-a953658w4pi3 07/27/20 15 07/27/2015 Sivakumar Gómez MD Unknown [id number]-d0c5-4v82-ina3-364b4dr85b40 07/27/20 15 07/27/2015 Sivakumar Gómez MD Unknown [id number] 07/27/20 15 07/27/2015 Sivakumar Gómez MD Unknown [id number] 07/27/20 15 07/27/2015 Sivakumar Gómez MD Unknown [id number] 07/27/20 15 07/27/2015 Sivakumar Gómez MD Unknown [id number] 07/27/20 15 07/27/2015 Sivakumar Gómez MD Unknown [id number] 07/27/20 15 07/27/2015 Sivakumar Gómez MD Unknown [id number] 07/27/20 15 07/27/2015 Sivakumar Gómez MD Unknown [id number] 07/27/20 15 07/27/2015 Sivakumar Gómez MD Unknown [id number] 07/27/20 15 07/27/2015 Sivakumar Gómez MD Follow Up [id number] 08/24/20 15 08/24/2015 Sivakumar Gómez MD Follow Up [id number] 08/24/20 15 08/24/2015 Sivakumar Gómez MD Follow Up [id number] 08/24/20 15 08/24/2015 Sivakumar Gómez MD Follow Up [id number] 08/24/20 15 08/24/2015 Sivakumar Gómez MD Follow Up [id number] 08/24/20 15 08/24/2015 Sivakumar Gómez MD Follow Up [id number] 08/24/20 15 08/24/2015 Sivakumar Gómez MD Follow Up [id number] 08/24/20 15 08/24/2015 Sivakumar Gómez MD Follow Up [id number]-h32s-g5h5u7x3806z 08/24/20 15 08/24/2015 Sivakumar Gómez MD Follow Up [id number] 08/24/20 15 08/24/2015 Sivakumar Gómez MD Follow Up [id number] 08/24/20 15 08/24/2015 Sivakumar Gómez MD Follow Up [id number]-p7tg459t6g02 08/24/20 15 08/24/2015 Sivakumar Gómez MD Follow Up [id number] 08/24/20 15 08/24/2015 Sivakumar Gómez MD Follow Up [id number] 08/24/20 15 08/24/2015 Sivakumar Gómez MD Follow Up [id number]-[id number] 08/24/20 15 08/24/2015 Sivakumar Gómez MD Follow Up [id number]-[id number] 08/24/20 15 08/24/2015 Sivakumar Gómez MD Follow Up [id number]-[id number] 08/24/20 15 08/24/2015 Sivakumar Gómez MD Follow Up [id number] 08/24/20 15 08/24/2015 Sivakumar Gómez MD Unknown [id number] 09/26/19 16 09/26/2015 Sivakumar Gómez MD Unknown [id number] 09/26/19 16 09/26/2015 Sivakumar Gómez MD Unknown [id number] 09/26/19 16 09/26/2015 Sivakumar Gómez MD Unknown [id number] 09/26/19 16 09/26/2015 Sivakumar Gómez MD Unknown [id number] 09/26/19 16 09/26/2015 Sivakumar Gómez MD Unknown [id number] 09/26/19 16 09/26/2015 Sivakumar Gómez MD Unknown [id number] 09/26/19 16 09/26/2015 Sivakumar Gómez MD Unknown [id number] 09/26/19 16 09/26/2015 Sivakumar Gómez MD Unknown [id number] 09/26/19 16 09/26/2015 Sivakumar Gómez MD Unknown [id number] 09/26/19 16 09/26/2015 Sivakumar Gómez MD Unknown [id number] 09/26/19 16 09/26/2015 Sivakumar Gómez MD Unknown [id number] 09/26/19 16 09/26/2015 Sivakumar Gómez MD Unknown [id number]-[id number] 09/26/19 16 09/26/2015 Sivakumar Gómez MD Unknown [id number]-[id number] 09/26/19 16 09/26/2015 Sivakumar Gómez MD Unknown [id number]-7554-[id number] 09/26/19 16 09/26/2015 Sivakumar Gómez MD Unknown [id number] 09/26/19 16 09/26/2015 Sivakumar Gómez MD gel one [id number]-28cw-p8u5-569c97i5z2o4 10/17/19 16 10/17/2015 Sivakumar Gómez MD gel one [id number]-27p9-9350wdk5584i 10/17/19 16 10/17/2015 Sivakumar Gómez MD gel one dn6cw035-no6j-2c95-q7m8-43u386528260 10/17/19 16 10/17/2015 Sivakumar Gómez MD gel one fn3i14qm-7430-0ioq-30wp-k67jddaku1q0 10/17/19 16 10/17/2015 Sivakumar Gómez MD gel one kvt915ek-2944-8a38-b128-yxba10my0c57 10/17/19 16 10/17/2015 Sivakumar Gómez MD gel one nd1x981b-a78d-1gd6-66z2-07863vr110x0 10/17/19 16 10/17/2015 Sivakumar Gómez MD gel one 96426cr0-553n-4144-gh40-7gj759g19n60 10/17/19 16 10/17/2015 Sivakumar Gómez MD gel one 7q98v2zq-962m-4g03-zc92-s167fi7iz842 10/17/19 16 10/17/2015 Sivakumar Gómez MD gel one 6p8830o2-960t-9d49-di6f-g4j201l8917m 10/17/19 16 10/17/2015 Sivakumar Gómez MD gel one 28bo0o55-27ta-75v1-lhj8-hb909d0e15ox 10/17/19 16 10/17/2015 Sivakumar Gómez MD gel one 53153mhc-3849-26c9-y9ko-773uy0638noq 10/17/19 16 10/17/2015 Sivakumar Gómez MD gel one [id number]-8gf7-3045-0560-0lga888so1cz 10/17/19 16 10/17/2015 Sivakumar Gómez MD gel one 2190z05d-io32-717j-3o80-6967bw279421 10/17/19 16 10/17/2015 Sivakumar Gómez MD gel one u18h54y6-s5oy-6582-u7a1-7n9279g67u62 10/17/19 16 10/17/2015 Sivakumar Gómez MD gel one bv471fx5-27a3-60m1-8o83-790vk3e83679 10/17/19 16 10/17/2015 Sivakumar Gómez MD Unknown [id number]-[id number] 10/31/19 16 10/31/2015 Sivakumar Gómez MD Unknown [id number]-tq96-503n-ih31-0f8vl0mb148a 10/31/19 16 10/31/2015 Sivakumar Gómez MD Unknown [id number]-i869-03w2-7a32-56jomcr611q3 10/31/19 16 10/31/2015 Sivakumar Gómez MD Unknown [id number]-471a-[id number] 10/31/19 16 10/31/2015 Sivakumar Gómez MD Unknown [id number]-86y6n25ab81s 10/31/19 16 10/31/2015 Sivakumar Gómez MD Unknown [id number] 10/31/19 16 10/31/2015 Sivakumar Gómez MD Unknown [id number]-pyyn-1hv5-140h-q6u969r9cz9u 10/31/19 16 10/31/2015 Sivakumar Gómez MD Unknown [id number] 10/31/19 16 10/31/2015 Sivakumar Gómez MD Unknown [id number]-w849-70e4-0xm8-z509y6o9809r 10/31/19 16 10/31/2015 Sivakumar Gómez MD Unknown [id number]-etxp-o59t22jyl2al 10/31/19 16 10/31/2015 Sivakumar Gómez MD Unknown [id number] 10/31/19 16 10/31/2015 Sivakumar Gómez MD Unknown [id number]-[id number] 10/31/19 16 10/31/2015 Sivakumar Gómez MD Unknown [id number]-576l-b9cs-r75ujt4xuo11 10/31/19 16 10/31/2015 Sivakumar Gómez MD Unknown [id number] 10/31/19 16 10/31/2015 Sivakumar Gómez MD 6wk follow up [id number]-[id number] 02/06/20 16 02/06/2016 Sivakumar Gómez MD 6wk follow up [id number]-e8jd-203ka80m90x1 02/06/20 16 02/06/2016 Sivaukmar Gómez MD 6wk follow up [id number]-mb9009om0gup 02/06/20 16 02/06/2016 Sivakumar Gómez MD 6wk follow up 37vw097g-0ry6-977r-5784-v40i1f4yjc71 02/06/20 16 02/06/2016 Sivakumar Gómez MD 6wk follow up [id number]-[id number] 02/06/20 16 02/06/2016 Sivakumar Gómez MD 6wk follow up [id number]-zbg3-7k3z-9r24-v450k9c82fn2 02/06/20 16 02/06/2016 Sivakumar Gómez MD 6wk follow up [id number]-[id number] 02/06/20 16 02/06/2016 Sivakumar Gómez MD 6wk follow up [id number]-5l2h-pes2-q14dlj5i813s 02/06/20 16 02/06/2016 Sivakumar Gómez MD 6wk follow up [id number]-s65s0y3d0880 02/06/20 16 02/06/2016 Sivakumar Gómez MD 6wk follow up 40v43j4j-v1qx-0rf9-6q59-74y0x59d2fl5 02/06/20 16 02/06/2016 Sivakumar Gómez MD 6wk follow up [id number]-88rj028d838e 02/06/20 16 02/06/2016 Sivakumar Gómez MD 6wk follow up [id number]-6rnc-bg62-6p85k4080c4i 02/06/20 16 02/06/2016 Sivakumar Gómez MD Follow up [id number] 02/06/20 16 02/06/2016 Sivakumar Gómez MD Follow up [id number]-[id number] 02/06/20 16 02/06/2016 Sivakumar Gómez MD Follow up [id number]-5o5w-8cwxgd8r8m50 02/06/20 16 02/06/2016 Sivakumar Gómez MD Follow up [id number]-sf92-y17wg0gclkm9 02/06/20 16 02/06/2016 Sivakumar Gómez MD Follow up [id number]-2m39-3vne-1m83kdm8lw93 02/06/20 16 02/06/2016 Sivakumar Gómez MD Follow up [id number]-8p2x-vf73b1902a87 02/06/20 16 02/06/2016 Sivakumar Gómez MD Follow up [id number]-e1z1-96i9-496q-478115x5b020 02/06/20 16 02/06/2016 Sivakumar Gómez MD Follow up [id number]-k36u-[id number] 02/06/20 16 02/06/2016 Sivakumar Gómez MD Follow up [id number] 02/06/20 16 02/06/2016 Sivakumar Gómez MD Follow up [id number]-6k0w-3518-540z591a15si 02/06/20 16 02/06/2016 Sivakumar Gómez MD Follow up [id number]-v1q1-3224-n630-1714u9v0q4vn 02/06/20 16 02/06/2016 Sivakumar Gómez MD Follow up [id number] 02/06/20 16 02/06/2016 Sivakumar Gómez MD Follow up 81ys9h8t-92s3-155v-z4rd-i4q460o3f618 02/06/20 16 02/06/2016 Sivakumar Gómez MD Unknown [id number]-twq1-6v4wk1seci13 03/15/20 16 03/15/2016 Sivakumar Gómez MD Unknown [id number]-o5jo-7r37235dpl6f 03/15/20 16 03/15/2016 Sivakumar Gómez MD Unknown [id number] 03/15/20 16 03/15/2016 Sivakumar Gómez MD Unknown [id number]-9gqj-7285-[id number] 03/15/20 16 03/15/2016 Sivakumar Gómez MD Unknown [id number]-063c-47qv-38r8-2c4yu0g2d19q 03/15/20 16 03/15/2016 Sivakumar Gómez MD Unknown [id number] 03/15/20 16 03/15/2016 Sivakumar Gómez MD Unknown [id number]-j443-k1f0768gy389 03/15/20 16 03/15/2016 Sivakumar Gómez MD Unknown [id number]-49q8-s6gg-v128466fm577 03/15/20 16 03/15/2016 Sivakumar Gómez MD Unknown [id number]-a4vl-[id number] 03/15/20 16 03/15/2016 Sivakumar Gómez MD Unknown [id number]-[id number] 03/15/20 16 03/15/2016 Sivakumar Gómez MD Unknown [id number]-tx0l-ty2if6ol5199 03/15/20 16 03/15/2016 Sivakumar Gómez MD PREDNISONE REFILL [id number]-3f84-e022925l0hva 04/03/20 16 04/03/2016 Sivakumar Gómez MD PREDNISONE REFILL 219sa7f1-5ml0-78w1-x892-28970f8589y3 04/03/20 16 04/03/2016 Sivakumar Gómez MD PREDNISONE REFILL [id number]-2538883l0zw2 04/03/20 16 04/03/2016 Sivakumar Gómez MD PREDNISONE REFILL [id number]-f8lk-9835n2zk0733 04/03/20 16 04/03/2016 Sivakumar Gómez MD PREDNISONE REFILL 113015k2-7839-929d-o30q-213w6b0qam87 04/03/20 16 04/03/2016 Sivakumar Gómez MD PREDNISONE REFILL 52641xm5-98z2-947i-fsm2-55n5927ff300 04/03/20 16 04/03/2016 Sivakumar Gómez MD PREDNISONE REFILL [id number]-p0tg-24a0-9ie7-96lkma88t162 04/03/20 16 04/03/2016 Sivakumar Gómez MD PREDNISONE REFILL [id number] 04/03/20 16 04/03/2016 Sivakumar Gómez MD PREDNISONE REFILL 2l1e3mx2-ggtd-078j-a392-s1k362483sz4 04/03/20 16 04/03/2016 Sivakumar Gómez MD LAB ORDER [id number] 04/03/20 16 04/03/2016 Sivakumar Gómez MD LAB ORDER [id number] 04/03/20 16 04/03/2016 Sivakumar Gómez MD LAB ORDER [id number]-s0gx2iy901sk 04/03/20 16 04/03/2016 Sivakumar Gómez MD LAB ORDER [id number]-3z3m-s0gl1752v4me 04/03/20 16 04/03/2016 Sivakumar Gómez MD LAB ORDER [id number]-s6fr4g4oc1o6 04/03/20 16 04/03/2016 Sivakumar Gómez MD LAB ORDER [id number] 04/03/20 16 04/03/2016 Sivakumar Gómez MD LAB ORDER [id number]-t77bt4enis41 04/03/20 16 04/03/2016 Sivakumar Gómez MD LAB ORDER [id number]-10x0-ln00-1lf4904fvg74 04/03/20 16 04/03/2016 Sivakumar Gómez MD PREDNISONE REFILL [id number]-hh20n23w050d 04/03/20 16 04/03/2016 Sivakumar Gómez MD LAB ORDER [id number] 04/03/20 16 04/03/2016 Sivakumar Gómez MD Lab order [id number] 04/12/20 16 04/12/2016 Sivakumar Gómez MD Lab order [id number] 04/12/20 16 04/12/2016 Sivakumar Gómez MD Lab order [id number] 04/12/20 16 04/12/2016 Sivakumar Gómez MD Lab order [id number] 04/12/20 16 04/12/2016 Sivakumar Gómez MD Lab order [id number] 04/12/20 16 04/12/2016 Sivakumar Gómez MD Lab order [id number] 04/12/20 16 04/12/2016 Sivakumar Gómez MD Lab order [id number] 04/12/20 16 04/12/2016 Sivakumar Gómez MD Lab order [id number] 04/12/20 16 04/12/2016 Sivakumar Gómez MD Peer to Peer [id number] 04/30/20 16 04/30/2016 Sivakumar Gómez MD Peer to Peer [id number] 04/30/20 16 04/30/2016 Sivakumar Gómez MD Peer to Peer [id number] 04/30/20 16 04/30/2016 Sivakumar Gómez MD Peer to Peer [id number] 04/30/20 16 04/30/2016 Sivakumar Gómez MD Peer to Peer [id number] 04/30/20 16 04/30/2016 Sivakumar Gómez MD Peer to Peer [id number] 04/30/20 16 04/30/2016 Sivakumar Gómez MD Peer to Peer [id number] 04/30/20 16 04/30/2016 Sivakumar Gómez MD Unknown [id number]-mn1kwa29x0f7 05/07/20 16 05/07/2016 Sivakumar Gómez MD Unknown [id number]-rys2-o07220i64216 05/07/20 16 05/07/2016 Sivakumar Gómez MD Unknown 7l47jtjc-27ue-3m6k-f705-9nsb892l9u52 05/07/20 16 05/07/2016 Sivakumar Gómez MD Unknown [id number] 05/07/20 16 05/07/2016 Sivakumar Gómez MD DEXA [id number] 05/11/2016 05/11/2016 Sivakumar Gómez MD DEXA [id number] 05/11/2016 05/11/2016 Sivakumar Gómez MD DEXA [id number] 05/11/2016 05/11/2016 Sivakumar Gómez MD DEXA [id number] 05/11/2016 05/11/2016 Sivakumar Gómez MD DEXA [id number]-d20g6fqq5xv2 05/11/2016 05/11/2016 Sivakumar Gómez MD DEXA [id number] 05/11/2016 05/11/2016 Sivakumar Gómez MD 3 mo f/u 4pg033k6-b66u-7v5n-1824-gh7urm1a58a6 05/17/20 16 05/17/2016 Sivakumar Gómez MD 3 mo f/u 76hs7c43-2xnv-88ge-vo5z-4a4t46361867 05/17/20 16 05/17/2016 Sivakumar Gómez MD 3 mo f/u 74dd276c-tde9-2352-s204-691605438do1 05/17/20 16 05/17/2016 Sivakumar Gómez MD 3 mo f/u d910p785-32h7-55e0-j531-6981n2rbs6c9 05/17/20 16 05/17/2016 Sivakumar Gómez MD 3 mo f/u od2t9y15-n9m4-8253-m52l-2l986z3l4d0k 05/17/20 16 05/17/2016 Sivakumar Gómez MD Infusions 6k96272c-8rl5-1717-6531-9521104555tv 06/20/20 16 06/20/2016 Sivakumar Gómez MD Infusions [id number]-f457-4h668r05a2hz 06/20/20 16 06/20/2016 Sivakumar Gómez MD Infusions [id number]-tm1s256r7e64 06/20/20 16 06/20/2016 Sivakumar Gómez MD refills ix0h0fm5-g568-6ryx-41k9-i45wo8t81819 11/04/19 17 11/04/2016 Sivakumar Gómez MD refills [id number]-c66r-060d623l5a7z 11/04/19 17 11/04/2016 Sivakumar Gómez MD LEFT KNEE PAIN 9r7p1r3x-o56r-8k9s-70e7-425y14n59e71 11/29/19 17 11/28/2016 Sivakumar Gómez MD Unknown [id number]-[id number] 12/01/19 17 11/30/2016 Sivakumar Gómez Procedures No [...] no. 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
--- OUTSIDE RECORDS SUMMARY | 2020-08-03 02:01 | XMS REPORT | Continuity of Care Document ---
Author Author [facility] t Organization [facility] Address [address] [place] [address] Phone Unavailable Care Team Providers Care Clinical Rn Liaison Name Role Phone Johnson MOORE, Joseph PCP Donna SALAZAR Attphys Unavailable Marco Antonio MOORE, Santhosh Attphys Tj MOORE, Suhail Pierce Attphys Mansoor MOORE, Ambika Ridley Attphys [phone] Jules ALTAMIRANO Attphys Unavailable FRANCISCA VENTURA Attphys Unavailable AMBIKA VARGAS Attphys Unavailable Payers Payer Name Policy Type Policy Number Effective Date Expiration Date S karolyn BCBSHEALTHSELECT IN AREA/HMO BLUE [id number]/2016-[facility] [place] [id number] 2017 00:00:00 Da Barrera MEDICAREMEDICARE PART A AND [id number] 2013-Present[facility] CTMedicare [id number] 2014 00:00:00 Da Barrera Problems Condition Name [...] Antibiotics) DA Active MO 2019-10-21 00 :00:00 [facility] cimetidine DA Active SV 2019-10-21 00:00:00 [facility] Sulfa (Sulfonamide Antibiotics) DA Active MO 2019-05-04 00 :00:00 [facility] cimetidine DA Active SV 2019-05-04 00:00:00 [facility] Sulfa (Sulfonamide Antibiotics) Propensity to adverse reactions to drug Active Rash 2017-02-21 00:00:00 Shauna Barrera Cimetidine Propensity to adverse reactions to drug Active Diarrhea 2017-02-21 00:00:00 Da garcia Sulfa (Sulfonamide Antibiotics) DA Active U 2016-08-07 00 :00:00 [facility] cimetidine DA Active U 2016-08-07 00:00:00 [facility] Family History Family Member Diagnosis Comments Start Date Stop Date Source Natural mother Diabetes Da Nm thodist Social History Social Habit Start Date Stop Date Quantity Comments Source Sex Assigned At Opal nii Barrera Tobacco use and exposure 2020-03-03 00:00:00 [...] 50,000 unit capsule 2020-03-03 08:56 :02 Yes [id number] Take 50,000 Units by mouth once [...] 10 MG tablet 2020-03-03 08:56:02 Yes 10mg [id number] Take 10 mg by mouth 3 (three) [...] by mouth 2 (two) times a day. Deloris Barrera levothyroxine (SYNTHROID, LEVOXYL) 88 mcg tablet [...] Da Barrera BMI 2020-03-03 08:47:00 18.54 kg/m2 aD Barrera Procedures Procedure Date / Time Performed Performing Clinician Sourelio e XR SHOULDER 2+ VW RIGHT 2020-03-03 09:25:39 Stan Andrew DC ARTHROCENTESIS ASPIR&/INJ MAJOR JT/BURSA W/O US 2020-02-22 1 09:00:00 Stan Andrew XR FINGER 2+ VW RIGHT 2020-03-02 [...] COLONOSCOPY SCREEN ING [code = COLONOSCOPY SCREENING] [facility] Future Scheduled Test 1999 00:00:00 SHINGLES VACCINES (#1) [code = SHINGLES VACCINES (#1)] Da Xieist Encounters Start Date/Time End Date/Time En[facility] ID Source 2020-06-02 00:00:00 2020-06-02 00:00:00 Telephone Josephine Bernard [facility] [id number] 2020-04-18 06:58:13 2020-04-18 07:13:13 Telemedicine Visit Santhosh Bernard [facility] [id number] 2020-03-03 00:00:00 2020-03-03 00:00:00 Outpatient [facility] [id number] [facility] 2020-03-03 00:00:00 2020-03-03 00:00:00 Outpatient [facility] [id number] [facility] 2020-03-02 00:00:00 2020-03-02 00:00:00 Outpatient SHELLI [facility] [id number] [facility] 2020-03-02 00:00:00 2020-03-02 00:00:00 Outpatient [facility]I [facility] [id number] [facility] 2020-03-02 00:00:00 2020-03-02 00:00:00 Outpatient SHELLI [facility] [id number] [facility] 2020-03-02 00:00:00 2020-03-02 00:00:00 Outpatient SHELLI [facility] [id number] [facility] 2020-03-02 00:00:00 2020-03-02 00:00:00 Outpatient SHELLI [facility] [id number] [facility] Results Test Description Test Time Test Comments Results Result Comments Source CHEST SINGLE (PORTABLE) 2020-08-02 23:51:00 [facility] : 1950 Sex: F [place] [address] Patient Name: LEONOR VELIZ MR #: [id number] : 1950 Age/Sex: 70/F Req #: [id number] Adm Physician: Ordered by: TESSA SALAZAR DO Report #: [id number] Location: ER Room/Bed: Procedure: [id number] DX/CHEST SINGLE (PORTABLE) Exam Date: 08/02/20 Exam Time: 2229 REPORT STATUS: Signed EXAMINATION: CHEST SINGLE (PORTABLE) INDICATION: Y FALL [id number] COMPARISON: None FINDINGS: TUBES and LINES: None. LUNGS: Hyperexpanded lungs. Lungs are clear. No consolidations. PLEURA: No pleural effusion or pneumothorax. HEART AND MEDIASTINUM: The cardiomediastinal silhouette is unremarkable. Aortic calcifications. BONES AND SOFT TISSUES: Cervical and lumbar fixation hardware. [place] in the right humeral head. Superior translation of both shoulders. Bilateral acromial and humeral head remodeling. Degenerative changes. Suspect loose ossi fic body in the right subacromial recess. UPPER ABDOMEN: No free air under the diaphragm. Cholecystectomy clips. IMPRESSION: No acute radiographic traumatic thoracic abnormality. Bilateral shoulder deformities are likely chronic in light of acromial and humeral remodeling. Signed by: Ty Weaver DO on 08/02/2020 11:55 PM Dictated By: TY WEAVER DO 54 Transcribed By: TERESE on 08/02/202354 COPY TO: TESSA SALAZAR DO PELVIS AP 1-2 VIEWS 2020-08-02 23:48:00 [facility] : 1950 Sex: F [facility] [address] [place] [address] Patient Name: LEONOR VELIZ MR #: [id number] : 1950 Age/Sex: 70/F Req #: [id number] Adm Physician: Ordered by: TESSA SALAZAR DO Report #: [id number] Location: ER Room/Bed: Procedure: [id number] DX/PELVIS AP 1-2 VIEWS Exam Date: 08/02/20 Exam Time: 2230 REPORT STATUS: Signed X-ray pelvis 1 view HISTORY: Pain. COMPARISON: None available. FINDINGS: Some osseous structures are partially secured by bowel contents. Sutures in the left pelvis. Bones: Suspect a nondisplaced right ischial tuberosity fracture versus enthesopathic changes. Joints: The joint spaces are well- maintained. Fixation hardware in the lumbar spine. Degenerative changes in the lumbar spine, hips, and pelvis. Soft tissues: Vascular calcifications. IMPRESSION: Suspect a nondisplaced right ischial tuberosity fracture versus enthesopathic changes. Signed by: Ty Weaver DO on 08/02/2020 11:51 PM Dictated By: TY WEAVER DO 50 Transcribed By: TERESE on 08/02/202350 COPY TO: TESSA SALAZAR DO CT CERVICAL SPINE WO 2020-08-02 23:03:00 [facility] : 1950 Sex: F [place] [address] Patient Name: LEONOR VELIZ MR #: [id number] : 1950 Age/Sex: 70/F Req #: [id number] Adm Physician: Ordered by: TESSA SALAZAR DO Report #: [id number] Location: ER Room/Bed: Procedure: [id number] CT/CT CERVICAL SPINE WO Exam Date: 08/02/20 Exam Time: 0 REPORT STATUS: Signed EXAMINATION: CT of the cervical spine without contrast HISTORY: 70 year old female status post fall, eye laceration, head and neck pain. COMPARISON: None available TECHNIQUE: Multidetector helical axial images were obtained without contrast from the foramen magnum to T1. Dose modulation, iterative reconstruction, and/or weight based adjustment of the mA/kV was utilized to reduce the radiation dose to as low as reasonably achievable. FINDINGS: Alignment: Straightening of the cervical lordosis. Soft tissues: The thyroid gland is notable visualize, correlate with possible prior surgical resection. Vertebrae: Status post ACDF with solid interbody fusion at C4-C5, bone density interbody graft is integrated. No hardware failure. Partial fusion of the posterior elements is also noted. Solid postsurgical interbody fusion at the C6-C7. Degenerative changes: C1-C2: Normal C2-C3: Mild facet arthrosis without stenosis. C3-C4: Minimal disc bulge, no canal or foraminal stenosis. C4-C5: Solid interbody and posterior fusion. No stenoses C5-C6: Disc osteophyte complex formation and uncovertebral arthrosis. Widening of the dorsal interspinous distance and minimal widening of the left C5-C6 facet joint, associated mild kyphotic malalignment. Mild bilateral foraminal stenoses. C6-C7: Solid interbody fusion, no stenoses C7-T1: Normal IMPRESSION: 1. No acute cervical spine postraumatic abnormalities. 2. Solid surgical interbody fusion at C4-C5 and C6-C7 as described. 3. Degenerative changes at C5-C6 with mild kyphotic malalignment as above. Note: Acute postraumatic spinal cord, vascular or ligamentous injuries cannot adequately be assessed by CT. Signed by: Dr. Lucas Garcia M.D. on 08/02/2020 11:27 PM Dictated By: LUCAS GARCIA MD 26 Transcribed By: TERESE on 08/02/202326 COPY TO: TESSA SALAZAR DO CT BRAIN WO 2020-08-02 22:52:00 [facility] : 1950 Sex: F [place] [address] Patient Name: LEONOR VELIZ MR #: [id number] : 1950 Age/Sex: 70/F Req #: [id number] [facility] Physician: Ordered by: TESSA SALAZAR DO Report #: [id number] Location: Room/Bed: Procedure: [id number] CT/CT BRAIN WO Exam Date: 08/02/20 Exam Time: 2229 REPORT STATUS: Signed EXAMINATION: Head CT HISTORY: 70 year old female status post fall, eye laceration COMPARISON: Brain MRI 01/29/2020 TECHNIQUE: Helical axial images of the head were obtained. Reformatted coronal and sagittal images from the axial data. Dose modulation, iterative reconstruction, and/or weight based adjustment of the mA/kV was utilized to reduce the radiation dose to as low as reasonably achievable. FINDINGS: Parenchyma: 1. Chronic cortical/subcortical right parietal infarct along the right superior parietal lobule and pars marginalis with encephalomalacia and gliosis is unchanged. 2. Small chronic lacunar infarcts present within the basal ganglia and in the left thalamus. 3. Also unchanged severe confluent supratentorial white matter hypodensities, perhaps a combination of demyelinating disease and chronic microvascular ischemic changes.. 4. No mass or hemorrhage. No CT evidence of acute territorial vascular insult. Extra-axial spaces:No abnormal density. No extra-axial fluid collections Brain volume: Mild generalized parenchymal volume loss. Ventricles: No hydrocephalus or displacement. Arteries: No density suggestive of thrombus. Dural sinuses: No abnormal density. Foramen magnum: No mass, Chiari malformation, or basilar invagination. Sella: No obvious mass. Paranasal/mastoid sinuses: Imaged portions unremarkable. Skull/Scalp: No lytic or blastic lesions. No fractures. Incidental findings: Intramuscular calcifications in the partially visualized temporalis muscle bilaterally. IMPRESSION: 1. No acute post traumatic intracranial abnormalities, particularly no hemorrhage. 2. Chronic cortical infarct in the right superior parietal lobule and small chronic lacunar infarcts in the deep adams nuclei, unchanged compared to MRI of 01/29/2020. 3. Confluent white matter hypodensities as detailed above are unchanged compared to MRI of 01/29/2020. Signed by: Dr. Lucas Garcia M.D. on 08/02/2020 11:02 PM Dictated By: LUCAS GARCIA MD 01 Transcribed By: TERESE on 08/02/202301 COPY TO: TESSA SALAZAR DO Large Joint Arthrocentesis: shoulder, R glenohumeral 2020-03-03 09:00:00 Stan Andrew MD 03/03/2020 9:46 AMLarge Joint Arthrocentesis: shoulder, R glenohumeralConsent given by: patientSupporting DocumentationIndications: pain Procedure DetailsLocation: shoulder - R glenohumeral Right side:Approach: posteriorRight shoulder medications administered: 80 mg methylPREDNISolone acetate 40 mg/mL; 3 mL lidocaine 10 mg/mL (1 %) Da Barrera XR Upper Extremity External Study 2020-03-02 15:27:46 This exam was not acquired at a [facility] facility and has not been interpreted by a [facility] Provider. The exam was imported into our imaging system. [facility] - CT CHEST W/O CONTRAST 2020-02-12 09:51:00 FAX : Kofi Briones [phone] [place]: St: REG FAX: Joseph Ca MD [phone] Name: LEONOR VELIZ Jules [facility] : 1950 Age/S: 69/F [address] Unit: [id number] Loc: [place] [address] Phys: Kofi Bean MD Acct: [id number] Dis Date: Status: REG CLI PHONE #: [phone] Exam Date: 02/12/2020 1001 FAX #: [phone] Reason: SOLITARY PULMONARY NODULE EXAMS: CPT CODE: [id number] CT CHEST W/O CONTRAST 49449 EXAM: - CT CHEST W/O CONTRAST HISTORY: [...] 1 Signed Report (CONTINUED) FAX: Kofi Briones [phone] [place]: St: REG FAX: Joseph Ca MD [phone] Name: LEONOR VELIZ [facility] : 1950 Age/S: 69/F [address] Unit: [id number] Loc: [place] [address] Phys: Kofi Bean MD Acct: [id number] Dis Date: Status: REG CLI PHONE #: [phone] Exam Date: 02/12/2020 1001 FAX #: [phone] Reason: SOLITARY PULMONARY NODULE EXAMS: CPT CODE: [id number] CT CHEST W/O CONTRAST 28739 <Continued> 1. Unchanged left upper lobe pulmonary nodule with 10 mm average dimension. 2. Healing left-sided rib fractures with other chronic findings as above. at 0951 Reported and signed by: Catrachito Liu MD CC: Kofi Bean MD; Joseph Ornelas MD Technologist: Melvina Ramos Trnscrd Dt/Tm: 02/12/2020 (0951) [email or web address] Orig Print D/T: S: 02/12/2020 (1001 PAGE 2 Signed Report MRI SPINE LUMBAR WO 2020-01-29 15:18:00 [place] [address] Patient Name: LEONOR VELIZ MR #: [id number] : 1950 Age/Sex: 69/F Req #: [id number] [facility] Physician: Ordered by: HELEN ALTAMIRANO Report #: [id number] Location: MRI Room/Bed: Procedure: [id number] MRI/MRI SPINE LUMBAR WO Exam Date: Exam [...] 4:01 PM Dictated By: GRZEGORZ ONEILL MD 1601 Transcribed By: TERESE on 01/29/20 1601 COPY TO: HELEN ALTAMIRANO MRI SPINE THORACIC WO 2020-01-29 15:03:00 [place] [address] Patient Name: LEONOR VELIZ MR #: [id number] : 1950 Age/Sex: 69/F [facility] #: [id number] [facility] Physician: Ordered by: HELEN ALTAMIRANO Report #: [id number] Location: MRI Room/Bed: Procedure: [id number] MRI/MRI SPINE THORACIC WO Exam Date: Exam [...] ALTAMIRANO MRI SPINE CERVICAL WO 2020-01-29 14:45:00 [place] [address] Patient Name: LEONOR VELIZ MR #: [id number] : 1950 Age/Sex: 69/F Req #: [id number] Adm Physician: Ordered by: HELEN ALTAMIRANO Report #: [id number] Location: MRI Room/Bed: Procedure: [id number] MRI/MRI SPINE CERVICAL WO Exam Date: Exam [...] M.D. on 01/29/2020 3:02 PM Dictated By: GRZEGROZ ONEILL MD 1502 Transcribed By: TERESE on 01/29/20 1502 COPY TO: HELEN ALTAMIRANO MRI BRAIN WO 2020-01-29 14:29:00 [place] [address] Patient Name: LEONOR VELIZ MR #: [id number] : 1950 Age/Sex: 69/F Req #: [id number] Adm Physician: Ordered by: HELEN ALTAMIRANO Report #: [id number] Location: MRI Room/Bed: Procedure: [id number] MRI/MRI BRAIN WO Exam Date: Exam Time: [...] 2:45 PM Dictated By: GRZEGORZ ONEILL MD 1442 Transcribed By: TERESE on 01/29/20 1440 COPY TO: HELEN ALTAMIRANO CBC W/AUTO DIFF [...] (test code = MDIFF) NO RENAL FUNCTION [id number] 07:43:00* Test Item Value Reference Range Interpretation [...] code = PHOS) 4.0 MG/DL 2.5-4.9 N [id number] 07:43:00* Test Item Value Reference Range Interpretation Comments MAGNESIUM (test code = MAG) 2.00 mg/dL 1.8-2.4 N RENAL FUNCTION [id number] 08:28:00* Test Item Value Reference Range Interpretation [...] (test code = PHOS) 4.1 MG/DL 2.5-4.9 [id number] 08:28:00* Test Item Value Reference Range Interpretation Comments MAGNESIUM (test code = MAG) 1.90 mg/dL 1.8-2.4 N CBC W/AUTO [id number] 07:36:00* Test Item Value Reference Range Interpretation [...] NO - XR FOOT 3 + V [id number] 15:25:00 FAX: Yung Monahan MD [phone] [place]: St: ADM FAX: Claude Ruffin MD [phone] FAX: Joseph Ca MD [phone] Name: LEONOR VELIZ [facility] : 1950 Age/S: 69/F [address] [place] [address] Unit #: [id number] Loc: [address] [address] Phys: Yung Peres MD Acct: [id number] Dis Date: Status: ADM IN PH ONE #: [phone] Exam Date: 10/24/2019 9943 FAX #: [phone] Reason: right foot wound EXAMS: CPT CODE: [id number] XR FOOT 3 + V RT [address]209 Procedure: Rig ht Foot Radiographs. Clinical Indication: [...] Technologist: Kristie Mcnally RT(R) Trnscrd Date/Time/By: 10/24/2019 (1525) : By: GeniaTDO Orig Print D/T: S: 10/24/2019 (1528) PAGE 1 Signed Report RENAL FUNCTION [id number] 04:57:00* Test Item Value Reference Range Interpretation [...] code = PHOS) 3.1 MG/DL 2.5-4.9 N [id number] 04:57:00* Test Item Value Reference Range Interpretation Comments MAGNESIUM (test code = MAG) 1.80 mg/dL 1.8-2.4 N CBC W/AUTO [id number] 04:52:00* Test Item Value Reference Range Interpretation [...] (test code = MDIFF) NO BASIC METABOLIC [id number] 09:13:00* Test Item Value Reference Range Interpretation [...] code = CA) 7.9 mg/dL 8.0-10.5 L [id number] 09:13:00* Test Item Value Reference Range Interpretation Comments PHOSPHOROUS (test code = PHOS) 2.6 MG/DL 2.5-4.9 N [id number] 09:13:00* Test Item Value Reference Range Interpretation Comments MAGNESIUM (test code = MAG) 1.80 mg/dL 1.8-2.4 N CBC W/AUTO [id number] 08:19:00* Test Item Value Reference Range Interpretation [...] REQUIRED (test code = MDIFF) NO URINALYSIS [id number] 21:42:00* Test Item Value Reference Range Interpretation [...] /LPF NONE SEEN - XR CHEST 1 [id number] 10:34:00 FAX: Claude Ruffin MD [phone] [place]: St: ADM FAX: Joseph Ca MD [phone] Name: LEONOR VELIZ [facility] [place] : 1950 Age/S: 69/F [address] [place] [address] Unit #: [id number] Loc: [address] [place] [address] Phys: Claude Chacon MD Acct: [id number] Dis Date: Status: ADM IN PHONE #: [phone] Exam Date: 10/22/2019 1012 FAX #: [phone] Reason: TRAUMA EXAMS: CPT CODE: [id number] XR CHEST 1 V 61593 Portable chest performed October 22, 2019 0952 [...] Chacon MD; Joseph Ornelas MD Technologist: Marissa Fiore, RT(R), RTT Trnscrd Date/Time/By: 10/22/2019 (1034) : By: PatyG Orig Print D/T: S: 10/22/2019 (1037) PAGE 1 Signed Report T4 [id number] 09:59:00* Test Item Value Reference Range Interpretation Comments T4 FREE (test code = T4F) 1.0 ng/dL 0.77-1.61 N THYROID STIMULATING [id number] 09:59:00* Test Item Value Reference Range Interpretation Comments THYROID STIMULATING HORMONE (test code = TSH) 2.27 0.42-5.4 7 N Results in sid- International Units/mL RENAL FUNCTION [id number] 08:23:00* Test Item Value Reference Range Interpretation [...] code = PHOS) 3.2 MG/DL 2.5-4.9 N [id number] 08:23:00* Test Item Value Reference Range Interpretation Comments MAGNESIUM (test code = MAG) 1.90 mg/dL 1.8-2.4 N CBC W/AUTO [id number] 07:46:00* Test Item Value Reference Range Interpretation [...] NO - CT UP EXTREM W/O CONT [id number] 19:59:00 Name: VELIZLEONOR Jules [facility] : 1950 Age/S: 69 / F [address] [place] [address] Unit #: [id number] Loc: [place] [address] Phys: Claude Chacon MD Acct: [id number] Dis Date: Status: ADM IN PHONE #: [phone] Exam Date: 10/21/20191926 FAX #: [phone] Reason: ? distal ulnar fx seen on plain film EXAMS: CPT CODE: [id number] [place] EXTREM W/[place] [address] LEFT WRIST INDICATION: ? distal [...] margin. IMPRESSION: 1. There is no ac eyak osseous fracture. 2. There is chronic mid [...] are severe atherosclerotic vascula r calcifications. at 1959 Reported and signed by: Ty Guillory D.O. PAGE 1 Signed Report (CONTINUED) Name: LEONOR VELIZ [facility] : 1950 Age/S: 69 / F [address] [place] [address] Unit #: [id number] Loc: [place] [address] Phys: Claude Chacon MD Acct: [id number] Dis Date: Status: ADM IN PHONE #: [phone] Exam Date: 10/21/20191926 FAX #: [phone] Reason: ? distal u lnar fx seen on plain film EXAMS: CPT CODE: [id number] [place] UP EXTREM W/[place] [address] <Continued> CC: Alberto Davison MD; Claude Chacon MD; Joseph Ornelas MD Technologist:Bear Machado, RT(R)(CT) CTDI: DLP: Trnscb Date/Time: 10/21/2019 (1958) t.ALISR.JB33 Orig Print D/T: S: 10/21/2019 (2001) PAGE 2 Signed Report - XR HAND 3 + V [id number] 15:17:00 FAX: Robert Lara [phone] [place]: B St: REG FAX: Joseph Ca MD [phone] Name: LEONOR VELIZ [facility] : 1950 Age/S: 69/F [address] [facility] Unit #: [id number] Loc: [place] [address] Phys: Robert Lara MD Acct: [id number] Dis Date: Status: REG ER PHONE #: [phone] Exam Date: 10/21/2019 1503 FAX #: [phone] Reason: pain s/p fall EXAMS: CPT CODE: [id number] XR HAND 3 + [place] [address] EXAM: Left hand, 3 views; INFORMATION: Status [...] the wrist for further evaluation. Location code: [facility] at 1517 Reported and signed by: Abraham Armstrong M.D. CC: Robert Martinez MD; Joseph Ornelas MD Technologist: CATRACHITO LYN RT(R) Trnscrd Date/Time/By: 10/21/2019 (151 7) : By: [facility] Print D/T: S: 10/21/2019 (1520) PAGE 1 Signed Report - CT CHEST W/O [id number] 14:30:00 Name: LEONOR VELIZ [facility] : 1950 Age/S: 69 / F [address] [facility] Unit #: [id number] Loc: [place] [address] Phys: Robert Lara MD Acct: [id number] Dis Date: Status: REG ER PHONE #: [phone] Exam Date: 10/21/2019 1352 FAX #: [phone] Reason: left lower rib pains sp fall EXAMS: CPT CODE: [id number] CT CHEST W/O CONTRAST 93296 REASON FOR EXAM: left lower rib pains sp fall EXAM ORDER DATE: 10/21/2019 1:32 PM Ordering M.Aaron: Robert Lara MD PROCEDURE: - CT CHEST [...] well PAGE 1 Signed Report (CONTINUED) Name: KERENLEONOR L [facility] : 1950 Age/S: 69 / F [address] [facility] Unit #: [id number] Loc: [place] [address] Phys: Robert Lara MD Acct: [id number] Dis Date: Status: REG ER PHONE #: [phone] Exam Date: 10/21 1351 FAX #: [phone] Reason: left lower rib pains sp fall EXAMS: CPT CODE: [id number] CT CHEST W/O CONTRAST 71 250 <Continued> [...] may represent superimposed aspiration versus infection. Location: [facility] at 1430 Reported and signed by: Martinez Alvarez MD CC: Robert Lara MD; Joseph Ornelas MD Technologist:Estefania DolanRT(R),CT CTDI: DLP: Trnscb Date/Time: 10/21/2019 (1430) t.SDR.RR31 Orig Print D/T: S: 10/21/2019 (1553) PAGE 2 Signed Report - CT MAXIFAC W/O [id number] 14:10:00 Name: LEONOR VELIZ [facility] : 1950 Age/S: 69 / F [address] [facility] Unit #: [id number] Loc: [place] [address] Phys: Robert Lara MD Acct: [id number] Dis Date: Status: REG ER PHONE #: [phone] Exam Date: 10/21/2019 1348 FAX #: [phone] Reason: pain, trauma, fall EXAMS: CPT CODE: [id number] [place]IFAC [place] [address] HISTORY: HEADACHE TECHNIQUE: Noncontrast 2.5 mm axial [...] 1 Signed Report (CONTINUED) Name: LEONOR VELIZ [facility] : 1950 Age/S: 69 / F [address] [facility] Unit #: [id number] Loc: [place] [address] Phys: Robert Lara MD Acct: [id number] Dis Date: Status: REG ER PHONE #: [phone] Exam Date: 10/21/2019 9822 FAX #: [phone] Reason: pain, trauma, fall EXAMS: CPT CODE: [id number] CT MAXIFAC W/[place] [address] <Continued> foraminal narrowing at C5-C6. Moderate bilateral [...] appropriate alignment and no hardware loosening. Location: [facility] at 1410 Reported and signed by: Martinez Alvarez MD CC: Robert Lara MD; Joseph Ornelas MD Technologist:Estefania Dolan,RT(R),CT CTDI: DLP: Trnscb Date/Time: 10/21/2019 (1410) t.SDR.RR31 Orig Print D/T: S: 10/21/2019 (7863) PAGE 2 Signed Report - CT C-SPINE W/O [id number] 14:10:00 Name: LEONOR VELIZ [facility] : 1950 Age/S: 69 / F [address] [facility] Unit #: [id number] Loc: [place] [address] Phys: Robert Lara MD Acct: [id number] Dis Date: Status: REG ER PHONE #: [phone] Exam Date: 10/21/2019 1346 FAX #: [phone] Reason: Neck Pain EXAMS: CPT CODE: [id number] CT C-SPINE W/O CONTRAST 28449 HISTORY: HEADACHE TECHNIQUE: Noncontrast 2.5 mm axial [...] 1 Signed Report (CONTINUED) Name: LEONOR VELIZ [facility] : 1950 Age/S: 69 / F [address] [facility] Unit #: [id number] Loc: [place] [address] Phys: Robert Lara MD Acct: [id number] Dis Date: Status: REG ER PHONE #: [phone] Exam Date: 10/21/2019 1346 FAX #: [phone] Reason: Neck Pain EXAMS: CPT CODE: [id number] CT C-SPINE W/O CONTRAST 37031 < Continued> foraminal narrowing at C5-C6. Moderate [...] appropriate alignment and no hardware loosening. Location: [facility] at 1410 Reported and signed by: Martinez Alvarez MD CC: Robert Lara MD; Joseph Ornelas MD Technologist:Estefania Dolan,RT(R),CT CTDI: DLP: Trnscb Date/Time: 10/21/2019 (1410) t.SDR.RR31 Orig Print D/T: S: 10/21/2019 (4589) PAGE 2 Signed Report - CT HEAD/BRAIN W/O [id number] 14:10:00 Name: LEONOR VELIZ [facility] : 1950 Age/S: 69 / F [address] [facility] Unit #: [id number] Loc: [place] [address] Phys: Robert Lara MD Acct: [id number] Dis Date: Status: REG ER PHONE #: [phone] Exam Date: 10/21/2019 1346 FAX #: [phone] Reason: HEADACHE EXAMS: CPT CODE: [id number] CT HEAD/BRAIN W/O CONT 73441 HISTORY: HEADACHE TECHNIQUE: Noncontrast 2.5 mm axial [...] 1 Signed Report (CONTINUED) Name: LEONOR VELIZ [facility] : 1950 Age/S: 69 / F [address] [facility] Unit #: [id number] Loc: [place] [address] Phys: Robert Lara MD Acct: [id number] Dis Date: Status: REG ER PHONE #: [phone] Exam Date: 10/21/2019 1346 FAX #: [phone] Reason: HEADACHE EXAMS: CPT CODE: [id number] CT HEAD/BRAIN W/O CONT 00507 < Continued> foraminal narrowing at C5-C6. Moderate [...] appropriate alignment and no hardware loosening. Location: [facility] at 1410 Reported and signed by: Martinez Alvarez MD CC: Robert Lara MD; Joseph Ornelas MD Technologist:Estefania Dolan,RT(R),CT CTDI: DLP: Trnscb Date/Time: 10/21/2019 (141) t.ALISR.RR31 Orig Print D/T: S: 10/21/2019 (1413) PAGE 2 Signed Report PROTHROMBIN [id number] 14:09:00* Test Item Value Reference Range Interpretation [...] (2.5-3.5) IS PATIENT ON ANTICOAGULANTS? NTHROMBOPLASTIN TIME [id number] 14:09:00* Test Item Value Reference Range Interpretation Comments THROMBOPLASTIN TIME PARTIAL (test code = PTT) 29.2 seconds 25.0-36. 5 N IS PATIENT ON ANTICOAGULANTS? NCBC W/O [id number] 14:08:00* Test Item Value Reference Range Interpretation [...] MPV) 10.5 fL 6.7-11.0 N BASIC METABOLIC [id number] 14:08:00* Test Item Value Reference Range Interpretation [...] CA) 8.7 mg/dL 8.5-10.1 N BASIC METABOLIC [id number] 14:01:00* Test Item Value Reference Range Interpretation [...] 8.5-10.1 - MRI LOW EXT W/O CONT [id number] 17:09:00 FAX: Alexus Freire MD [phone] [place]: St: REG FAX: Joseph Ca MD [phone] Name: LEONOR VELIZ [facility] : 1950 Age/S: 69/F [address] Unit #: [id number] Loc: [place] [address] Phys: Alexus Elliott MD Acct: [id number] Dis Date: Status: REG CLI PHONE #: [phone] Exam Date: 10/17/2019 1320 FAX #: [phone] Reason: OSTEOMYELITIS, UNSPEC IFIED EXAMS: CPT CODE: [id number] MRI LOW EXT W/[place] [address] Exam: MRI right foot without contrast Dictation [...] Signed Report (CONTINUED) FAX: Alexus Freire MD [phone] [place]: [facility]: REG FAX: Joseph Ca MD [phone] Name: LEONOR VELIZ [facility] : 1950 Age/S: 69/F [address] Unit #: [id number] Loc: [place] [address] Phys: Alexus Elliott MD Acct: [id number] Dis Date: Status: REG CLI PHONE #: [phone] Exam Date: 10/17/2019 1320 FAX #: [phone] Reason: OSTEOMYELITIS, UNSPE CIFIED EXAMS: CPT CODE: [id number] MRI LOW EXT W/[place] [address] <Continued> CC: Alexus Elliott MD; Joseph Ornelas MD Technologist: NATALYA GARCIA Trnscrd Date/Time/By: 10/17/2019 (5569) : By: GeniaBC0 PAGE 2 Signed Report FAX: Alexus Freire MD [phone] [place]: [facility]: REG FAX: Joseph Ca MD [phone] Name: MARTA VELIZJosephine Vicente [facility] : 1950 Age/S: 69/F [address] Unit #: [id number] Loc: [place] [address] Phys: Alexus Elliott MD Acct: [id number] Dis Date: Status: REG CLI PHONE #: [phone] Exam Date: 10/17/2019 1320 FAX #: [phone] Reason: OSTEOMYELITIS, UNSPECIFIED EXAMS: CPT CODE: [id number] MRI [place]OW EXT W/[place] [address] <Continued> Orig Print D/T: S: 10/17/2019 (2962) PAGE 3 Signed Report - CT CHEST W/O [id number] 09:09:00 FAX: Kofi Briones [phone] [place]: [facility]: REG FAX: Joseph Ca MD [phone] Name: LEONOR VELIZ [facility] : 1950 Age/S: 69/F [address] Unit: [id number] Loc: [place] [address] Phys: Kofi Bean MD Acct: [id number] Dis Date: Status: REG CLI PHONE #: [phone] Exam Date: 06/20/2019 0806 FAX #: [phone] Reason: SOLITARY PULMONARY NODULE EXAMS: CPT CODE: [id number] CT CHEST W/O CONTRAST 28317 EXAM: - CT CHEST W/O CONTRAST HISTORY: [...] Signed R eport (CONTINUED) FAX: Kofi Briones [place]: St: REG FAX: Joseph Ca MD [phone] --- Na me: LEONOR VELIZ [facility] : Age/S: 69/F [address] Unit: [id number] Loc: [place] [address] Phys: Jj Bean MD Acct: [id number] Dis D ate: Status: REG CLI PHONE #: Exam Date: 06/20/2019 08 FAX #: [phone] Reason: SOLITARY PULMONARY NODULE EXAMS: CPT CODE: [id number] CT CHEST W/O CO NTRAST 24830 <Continued> at 0909 Reported and signed by: Catrachito Liu MD CC: Kofi Bean MD; Joseph Ornelas MD Technologist: LAVERN CORRAL Trnscrd Dt/Tm: 06/20/2019 (0909) GeniaCB5 Orig Print D/T: S: 06/20/2019 (0913 PAGE 2 Signed Report - XR HIP W/PEL UNI 2+V [id number] 15:35:00 FAX: Kofi Briones [phone] [place]: St: REG FAX: Joseph Ca MD [phone] Name: LEONOR VELIZ [facility] : 1950 Age/S: 68/F [address] Unit #: [id number] Loc: [place] [address] Phys: Kofi Bean MD Acct: [id number] Dis Date: Status: REG CLI PHONE #: [phone] Exam Date: 05/08/2019 1525 FAX #: [phone] Reason: PAIN IN UNSPCIFIED HIP EXAMS: CPT CODE: [id number] XR HIP W/PEL UNI 2+[place] [address] EXAM: - XR HIP W/PEL UNI 2+V [...] othe r acute osseous abnormality identified. at 1535 Reported and signed by: Kelli Gonzalez MD CC: Kofi Bean MD; Joseph Ornelas MD Technologist: Lori Liu PAGE 1 Signed Report FAX: Kofi Briones [phone] [place]: St: REG FAX: Joseph Ca MD [phone] Name: LEONOR VELIZ [facility] : 1950 Age/S: 68/F [address] Unit #: [id number] Loc: [place] [address] Phys: Kofi Bean MD Acct: [id number] Dis Date: Status: REG CLI PHONE #: [phone] Exam Date: 05/08/2019 1525 FAX #: [phone] Reason: PAIN IN UNSPCIFIED HIP EXAMS: CPT CODE: [id number] XR HIP W/PEL UNI 2+[place] [address] < Continued> Trngard Date/Time/By: 05/08/2019 (7975) : By: GeniaKW9 PAGE 2 Signed Report - CHST W/[id number] 13:18:00 FAX: Kofi Briones [phone] [place]: St: REG Name: LEONOR JOHNSON [facility] [place] : [birth year] Age/S: 68/F [address] Unit #: [id number] Loc: [place] [address] Phys: Kofi Bean MD Acct: [id number] Dis Date: Status: REG [facility] PHONE #: [phone] Exam Date: 05/06/2019 1142 FAX #: [phone] Reason: LEFT UPPER LOBE MASS EXAMS: CPT CODE: [id number] US CHST W/MEDIASTINUM 22898 EXAM: Ultrasound screen for left lung biopsy [...] was generated by using voice-recognition software. at 7707 Reported and signed by: Baljinder smith M.D. CC: Kofi Bean MD Technologist: Darci Ayoub RDMS Trnscrd Date/Time/By: 05/06/2019 (6509) : By: GeniaHPD PAGE 1 Signed Report FAX: Mansoor Briones [phone] [place]: St: REG Name: LEONOR VELIZ [facility] : 1950 Age/S: 68/F [address] Unit #: [id number] Loc: [place] [address] Phys: Kofi Bean MD Acct: [id number] Dis Date: Status: REG [facility] PHONE #: [phone] Exam Date: 2018 1142 FAX #: [phone] Reason: LEFT UPPER LOBE MASS EXAMS: CPT CODE: [id number] [facility]MEDIASTINUM 60855 <Continued> Orig Print D/T: S: 05/06/2019 (7713) PAGE 2 Signed Report - CT CHEST W/O [id number] 13:10:00 FAX: Kofi Briones [phone] [place]: St: REG Name: LEONOR BARONE [facility] : Age/S: 68/F [address] Unit: [id number] Loc: [place] [address] Phys: Kofi Bean MD Acct: [id number] Dis Date: Status: REG [facility] PHONE #: [phone] Exam Date: 05/06/2019 1155 FAX #: [phone] Reason: LEFT LUNG NODULE EXAMS: CPT CODE: [id number] CT CHEST W/O CONTRAST 14276 EXAM: CT CHEST WITHOUT CON TRAST HISTORY: [...] 1 Signed Report (CONTINUED) FAX: Kofi Briones [phone] [place]: St: REG -------- Name: LEONOR VELIZ [facility] : 1950 Age/S: 68/F [address] Uni t: [id number] Loc: [place] [address] Phys: Kofi Bean MD Acct: [id number] Dis Date: Status: REG SD P JOSÉ #: [phone] Exam Date: 05/06/2019 1155 FAX # : [phone] Reason: LEFT LUNG NODULE E XAMS: CPT CODE: [id number] CT CHEST W/O CONTRAST 74965 <Continued> nodule. We were unable to visualize [...] CARISSA VELIZ, RT(R,CT) Trnscrd Dt/Tm: 05/06/2019 (1310) GeniaHPD Orig Print D/T: S: 05/06/2019 (6673 PAGE 2 Signed Report PROTHROMBIN [id number] 19:54:00* Test Item Value Reference Range Interpretation [...] YESLIST ANTICOAGULANT/ANTI PLT MEDICATION: Ot herTHROMBOPLASTIN TIME [id number] 19:54:00* Test Item Value Reference Range Interpretation Comments THROMBOPLASTIN TIME PARTIAL (test code = PTT) 26.1 SECONDS 23.4-37. 0 N Therapeutic Range for Heparin EFFECTIVE 04/01/13 Heparin IU/mL aPTT Seconds0.3 64.30.7 88.8 IS PATIENT ON ANTICOAGULANTS ? YESLIST ANTICOAGULANT/ANTI PLT MEDICATION: Ot herBASIC METABOLIC [id number] 17:40:00* Test Item Value Reference Range Interpretation [...] CA) 9.0 mg/dL 8.4-10.2 N CBC W/AUTO [id number] 17:07:00* Test Item Value Reference Range Interpretation [...] 3/uL 0.0-0.1 N - CT CHEST W/O [id number] 13:40:00 FAX: Kofi Briones [phone] [place]: St: REG Name: LEONOR BARONE [facility] : 9 Age/S: 68/F [address] Unit: [id number] Loc: [place] [address] Phys: Kofi Bean MD Acct: [id number] Dis Date: Status: REG CLI PHONE #: [phone] Exam Date: 03/16/2019 1324 FAX #: [phone] Reason: SOLITARY PULMONARY NODULE EXAMS: CPT CODE: [id number] CT CHEST W/O CONTRAST 47618 EXAM: - CT CHEST W/O CONTRAST HISTORY: [...] Signed Repo rt (CONTINUED) FAX: Kofi Briones [place]: St: REG Name: LEONOR VELIZ [facility] : 1950 Age/S: 68/F [address] Unit: [id number] Loc: [place] [address] Phys: Kofi Bean MD Acct: [id number] Dis Date: Status: REG CLI PHONE #: [phone] Exam Date: 03/16/2019 1324 FAX #: [phone] Reason: SOLITARY PULMONARY NODULE EXAMS: CPT CODE: [id number] CT CHEST W/O CONTRAST 50555 < Continued> 2. Right lower lobe infiltrate/pneumonia has nearly resolved. at 1340 Reported and signed by: Catrachito Liu MD CC: Kofi Bean MD Technologist: Melvina Ramos Trnscrd Dt/Tm: 03/16/2019 (6922) Yuri.CB5 Orig Print D/T: S: 03/16/2019 (3642 PAGE 2 Signed Report - CT ABD PELVIS W/[id number] 17:07:00 [place]: St: REG Name: LEONOR BARONE [facility] : 9 Age/S: 68/F [address] Unit: [id number] Loc: [place] [address] Phys: Ximena Prather DIRECTOR OF [employer] Acct: [id number] Dis Date: Status: REG ER PHONE #: [phone] Exam Date: 03/01/2019 1645 FAX #: [phone] Reason: bleeding through stoma, hx of bowel resection EXAMS: CPT CODE: [id number] CT ABD PELVIS W/CONT 62831 EXAM: - CT ABD PELVIS W/CONT Location [...] is P AGE 1 Signed Report (CONTINUED) [place]: St: REG Name: Isabel VELIZ [facility] : 1950 e/S: 68/F [address] Unit: [id number] Loc: [place] [address] Phys: Ximena Prather [employer] Acct: [id number] Dis Date: Status: REG ER PHONE #: [phone] Exam Date: 03/01/2019 1645 FAX #: [phone] Reason : bleeding through stoma, hx of bowel resection EXAMS: CPT CODE: [id number] CT ABD PELVIS W/CONT 66278 <Continued> an IVC filter present. Lymphatics: No [...] patient's symptoms. 2. Right renal cyst. at 2609 Reported and signed by: Zac Copeland M.D. CC: Technologist: TEJINDER MAIN Trnscrd Dt/Tm: 03/01/2019 (2617) GeniaCP11 Orig Print D/T: S: 03/01/2019 (1710 PAGE 2 Signed Report BASIC METABOLIC [id number] 16:27:00* Test Item Value Reference Range Interpretation [...] CA) 9.3 mg/dL 8.4-10.2 N LIVER FUNCTION [id number] 16:27:00* Test Item Value Reference Range Interpretation [...] code = ALKP) 139 U/L 38-126 H [id number] 16:27:00* Test Item Value Reference Range Interpretation Comments LIPASE (test code = LIP) 91 U/L 23-300 N PROTHROMBIN [id number] 16:26:00* Test Item Value Reference Range Interpretation [...] with Food and Drug Administrationrecommendations. BASIC METABOLIC [id number] 16:23:00* Test Item Value Reference Range Interpretation [...] CA) 9.3 mg/dL 8.4-10.2 N LIVER FUNCTION [id number] 16:23:00* Test Item Value Reference Range Interpretation [...] code = ALKP) 139 U/L 38-126 H [id number] 16:23:00* Test Item Value Reference Range Interpretation Comments LIPASE (test code = LIP) U/L 23-300 CBC W/AUTO [id number] 16:16:00* Test Item Value Reference Range Interpretation [...] 3/uL 0.0-0.1 N - XR CHEST 2 [id number] 12:45:00 FAX: Alexus Freire MD [phone] [place]: [facility]: [facility] FAX: Carlito Foley [phone] Name: KERENLEONOR LYNN [facility] [place] : 1950 Age/S: 68/F [address] Unit #: [id number] Loc: [address] [place] [address] Phys: Alexus Elliott MD Acct: [id number] Dis Date: Status: ADM IN PHONE #: [phone] Exam Date: 01/23/2019 1225 FAX #: [phone] Reason: RT LL PNA EXAMS: CPT CODE: [id number] XR CHEST 2 V 66139 Chest x-ray 2 views History: RT LL [...] by Flavio Antonio MD on 01/23/2019 at 9634 Reported and signed by: Flavio Antonio MD CC: Alexus Elliott MD; Carlito Cordero Technologist: SANTY GOFF Trnscrd Date/Time/By: 01/23 (2427) : By: GeniaPMT PAGE 1 Signed Rep ort FAX: Alexus Freire MD [phone] [place]: St: ADM FAX: Carlito Foley [phone] ----- [facility] : [facility] Age/S: 68/F [address] Unit #: [id number] Loc: [place]red6618 [place] [address] Phys: Alexus Elliott MD Acct: [id number] Dis Date: Status: ADM IN PHONE #: [phone] Exam Date: 01/23/2019 1225 FAX #: [phone] Reason: RT LL PNA EXAMS: CPT CODE: [id number] XR CHEST 2 V 84863 <Continued> Orig Print D/T: S: 01/23/2019 (7070) PAGE 2 Signed Report BASIC METABOLIC [id number] 06:24:00* Test Item Value Reference Range Interpretation [...] CA) 9.4 mg/dL 8.4-10.2 N CBC W/AUTO [id number] 06:00:00* Test Item Value Reference Range Interpretation [...] 3/uL 0.0-0.1 N - XR CHEST 2 [id number] 11:56:00 FAX: Alexus Freire MD [phone] [place]: St: [facility] FAX: Carlito Foley [phone] Name: KERENLEONOR LYNN [facility] [place] : 1950 Age/S: 68/F [address] Unit #: [id number] Loc: [address] [place] [address] Phys: Alexus Elliott MD Acct: [id number] Dis Date: Status: ADM IN PHONE #: [phone] Exam Date: 01/17/2019 1151 FAX #: [phone] Reason: MRSA PNA. POSSIBLE RT LUNG ABSCESS EXAMS: CPT CODE: [id number] XR CHEST 2 V 49643 Chest Radiograph History: MRSA PNA. POSSIBLE RT [...] exam, there has been little change. at 1156 Reported and signed by: Flavio Antonio MD CC: Alexus Elliott MD; Carlito Cordero Technologist: JANET TERRAZAS RT (R); Adenike Andrade [facility] Date/Time/By: 01/17/2019 (9711) : By: GeniaPMT PAGE 1 Signed Report FAX: Alexus Freire MD [phone] [place]: St: ADM FAX: Yas Foley [phone] Name: LEONOR VELIZ [facility] : 1950 Age/S: 68/F [address] Unit #: [id number] Loc: [address] [place] [address] Phys: Alexus Elliott MD Acct: [id number] Dis Date: Status: ADM IN PHONE #: [phone] Exam Date: 01/17/2019 1151 FAX #: [phone] Reason: MRSA PNA. POSSIBLE RT LUNG ABSCESS EXAMS: CPT CODE: [id number] XR CHEST 2 V 13694 < Continued> Orig Print D/T: S: 01/17/2019 (4962) PAGE 2 Signed Report - XR ABDOMEN 1 [id number] 13:02:00 FAX: Carlito Foley [phone] [place]: St: ADM Name: LEONOR JOHNSON [facility] : [birth year] Age/S: 68/F [address] Unit #: [id number] Loc: [address] [place] [address] Phys: Carlito Cordero Acct: [id number] Dis Date: Status: ADM IN PHONE #: [phone] Exam Date: 01/15/2019 1240 FAX #: [phone] Reason: no colostomy output X 1 day EXAMS: CPT CODE: [id number] XR ABDOMEN 1 V 46538 EXAM: - XR ABDOMEN 1 V HISTORY: [...] seen. IMPRESSION: 1. No acute findings. at 8771 Reported and signed by: Catrachito Liu MD CC: Carlito Cordero Technologist: Joselyn Adams Trnscrd Date/Time/By: 01/15/2019 (0281) : By: GeniaCB5 PAGE 1 Signed Report FAX: Carlito Foley [phone] [place]: St: ADM Name: LEONOR JOHNSON [facility] : [birth year] Age/S: 68/F [address] Unit #: [id number] Loc: [address] [place] [address] Phys: Carlito Cordero Acct: [id number] Dis Date: Status: ADM IN PHONE #: [phone] Exam Date: 01/15/2019 1240 FAX #: [phone] Reason: no colostomy output X 1 day EXAMS: CPT CODE: [id number] XR ABDOMEN 1 V 27339 <Continued> Orig Print D/T: S: 01/15/2019 (0378) PAGE 2 Signed Report BASIC METABOLIC [id number] 06:07:00* Test Item Value Reference Range Interpretation [...] code = CA) 8.6 mg/dL 8.4-10.2 N [id number] 06:07:00* Test Item Value Reference Range Interpretation Comments MAGNESIUM (test code = MAG) 2.2 mg/dL 1.6-2.3 N BASIC METABOLIC [id number] 06:06:00* Test Item Value Reference Range Interpretation [...] code = CA) 8.6 mg/dL 8.4-10.2 N [id number] 06:06:00* Test Item Value Reference Range Interpretation Comments MAGNESIUM (test code = MAG) mg/dL 1.6-2.3 CBC W/AUTO [id number] 05:58:00* Test Item Value Reference Range Interpretation [...] 0.02 x10 3/uL 0.0-0.1 N COMPREHENSIVE METABOLIC [id number] 07:43:00* Test Item Value Reference Range Interpretation [...] code = ALKP) 137 U/L 38-126 H [id number] 07:43:00* Test Item Value Reference Range Interpretation Comments PREALBUMIN (test code = PREALB) 49.99 mg/dL 17.6-36.0 H COMPREHENSIVE METABOLIC [id number] 07:00:00* Test Item Value Reference Range Interpretation [...] code = ALKP) 137 U/L 38-126 H [id number] 07:00:00* Test Item Value Reference Range Interpretation Comments PREALBUMIN (test code = PREALB) mg/dL 17.6-36.0 PROTHROMBIN [id number] 06:51:00* Test Item Value Reference Range Interpretation [...] with Food and Drug Administrationrecommendations. THROMBOPLASTIN TIME [id number] 06:51:00* Test Item Value Reference Range Interpretation Comments THROMBOPLASTIN TIME PARTIAL (test code = PTT) 25.5 SECONDS 23.4-37. 0 N Therapeutic Range for Heparin EFFECTIVE 04/01/13 Heparin IU/mL aPTT Seconds0.3 64.30.7 88.8 CBC W/AUTO [id number] 06:39:00* Test Item Value Reference Range Interpretation [...] BA#) 0.03 x10 3/uL 0.0-0.1 N URINALYSIS [id number] 18:04:00* Test Item Value Reference Range Interpretation [...] code = MUCU) Rare /LPF <Rare A [id number] 10:50:00* Test Item Value Reference Range Interpretation Comments GLUBED (test code = GLUBED) 124 MG/DL 74-106 H [id number] 06:36:00* Test Item Value Reference Range Interpretation Comments GLUBED (test code = GLUBED) 86 MG/DL 74-106 N [id number] 06:36:00* Test Item Value Reference Range Interpretation Comments GLUBED (test code = GLUBED) 116 MG/DL 74-106 H [id number] 16:45:00* Test Item Value Reference Range Interpretation Comments GLUBED (test code = GLUBED) 104 MG/DL 74-106 N [id number] 11:19:00* Test Item Value Reference Range Interpretation Comments GLUBED (test code = GLUBED) 90 MG/DL 74-106 N [id number] 10:47:00* Test Item Value Reference Range Interpretation Comments GLUBED (test code = GLUBED) 112 MG/DL 74-106 H [id number] 07:18:00* Test Item Value Reference Range Interpretation Comments GLUBED (test code = GLUBED) 72 MG/DL 74-106 L BASIC METABOLIC [id number] 05:45:00* Test Item Value Reference Range Interpretation [...] CA) 9.0 mg/dL 8.4-10.2 N CBC W/AUTO [id number] 05:29:00* Test Item Value Reference Range Interpretation [...] 3/uL 0.0-0.1 N - CT CHEST W/O [id number] 20:18:00 FAX: Leanna England [phone] [place]: St: ADM FAX: Chemo Rivera MD [phone] Name: VELIZLEONOR SYLVESTER [facility] : 1950 Age/S: 68/F [address] Unit: [id number] Loc: [address], [place] [address] Phys: Leanna White MD Acct: [id number] Dis Date: Status: ADM IN PHONE #: [phone] Exam Date: 01/10/20192014 FAX #: [phone] Reason: pna EXAMS: CPT CODE: [id number] CT CHEST W/O CONTRAST 56945 EXAM: CHEST CT WITHOUT INTRAVENOUS CONTRAST CLINICAL [...] 1 Signed Report (CONTINUED) FAX: Leanna Elena [phone] [place]: St: ADM FAX: Chemo Rivera MD [phone] Name: LEONOR VELIZ [facility] : 1950 Age/S: 68/F [address] Unit: [id number] Loc: [address] [place] [address] Phys: Leanna White MD Acct: [id number] Dis Date: Status: ADM IN PHONE #: [phone] Exam Date: 01/10/20192014 FAX #: [phone] Reason: pna EXAMS: CPT CODE: [id number] CT CHEST W/O CONTRAST 85585 <Continued> IMPRESSION: Worsening right lower lobe consolidation [...] James Unger EZ Trnscrd Dt/Tm: 01/10/2019 (2018) [email or web address] Orig Print D/T: S: 01/10/2019 (1 PAGE 2 Signed Report GLUBED 2019-01-10 15:38:00* Test Item Value Reference Range Interpretation Comments GLUBED (test code = GLUBED) 87 MG/DL 74-106 N [id number] 11:36:00* Test Item Value Reference Range Interpretation Comments GLUBED (test code = GLUBED) 121 MG/DL 74-106 H [id number] 10:30:00* Test Item Value Reference Range Interpretation Comments GLUBED (test code = GLUBED) 84 MG/DL 74-106 N BASIC METABOLIC [id number] 06:44:00* Test Item Value Reference Range Interpretation [...] code = CA) 9.3 mg/dL 8.4-10.2 N [id number] 06:44:00* Test Item Value Reference Range Interpretation Comments MAGNESIUM (test code = MAG) 2.5 mg/dL 1.6-2.3 H CBC W/AUTO [id number] 06:28:00* Test Item Value Reference Range Interpretation [...] = BA#) 0.05 x10 3/uL 0.0-0.1 N [id number] 20:37:00* Test Item Value Reference Range Interpretation Comments GLUBED (test code = GLUBED) 109 MG/DL 74-106 H [id number] 19:49:00* Test Item Value Reference Range Interpretation Comments MAGNESIUM (test code = MAG) 2.2 mg/dL 1.6-2.3 N BASIC METABOLIC [id number] 19:05:00* Test Item Value Reference Range Interpretation [...] code = CA) 9.1 mg/dL 8.4-10.2 N [id number] 15:32:00* Test Item Value Reference Range Interpretation Comments GLUBED (test code = GLUBED) 118 MG/DL 74-106 H [id number] 10:32:00* Test Item Value Reference Range Interpretation Comments GLUBED (test code = GLUBED) 143 MG/DL 74-106 H - XR CHEST 1 [id number] 07:09:00 FAX: Chemo Rivera MD [phone] [place]: St: ADM FAX: Patricia Cadet [phone] Name: LEONOR VELIZ [facility] : 1950 Age/S: 68/F [address] Unit #: [id number] Loc: [address] [place] [address] Phys: Patricia Bell [employer]OR [employer] Acct: [id number] Dis Date: Status: ADM IN PHONE #: [phone] Exam Date: 01/09/2019 05 FAX #: [phone] Reason: pneumonia EXAMS: CPT CODE: [id number] XR CHEST 1 V 76929 EXAM: - XR CHEST 1 V LOCATION: [...] Nieves MD CC: Chemo Yusuf; Patricia Bell NP Technologist: VALENTINA JAQUEZ RT (R); Virgil Alas Trnscrd Date/Time/By: 01/09/2019 (0709) : By: Silvia V2 PAGE 1 Signed Report FAX: Chemo Rivera MD [phone] [place]: St: ADM FAX: Patricia Cadet [phone] [facility] 1950 Age/S: 68[facility]F [address] Unit #: [id number] Loc: CFred314T [place] [address] Phys: Arabella,Patricia Pateca DIRECTOR OF [employer]ETING Acct: [id number] Dis Date: Status: ADM IN PHONE #: [phone] Exam Date: 05 FAX #: [phone] Reason: pneumonia EXAMS: CPT CODE: [id number] XR CHEST 1 V 08519 <Continued> Orig Print D/T: S: 01/09/2019 (0712) PAGE 2 Signed Report [id number] 06:39:00* Test Item Value Reference Range Interpretation Comments GLUBED (test code = GLUBED) 100 MG/DL 74-106 N COMPREHENSIVE METABOLIC [id number] 05:17:00* Test Item Value Reference Range Interpretation [...] 156 U/L 38-126 H Last PROBNP result: 68221 g/dL on 01/05/19 - [id number] 05:17:00* Test Item Value Reference Range Interpretation Comments MAGNESIUM (test code = MAG) 1.8 mg/dL 1.6-2.3 N Last PROBNP result: 16872 g/dL on 01/05/19 - 0541NT PRO-BRAIN NATRIURETIC [...] on patients taking BIOTINsupplements. Last PROBNP result: 68385 g/dL on 01/05/19 - 41COMPREHENSIVE METABOLIC PANEL 2019-01-09 05:14:00* Test Item Value [...] 156 U/L 38-126 H Last PROBNP result: 18123 g/dL on 01/05/19 - [id number] 05:14:00* Test Item Value Reference Range Interpretation Comments MAGNESIUM (test code = MAG) 1.8 mg/dL 1.6-2.3 N Last PROBNP result: 29598 g/dL on 01/05/19 - 540NT PRO-BRAIN NATRIURETIC PEPTI 2019-01-09 05:14:00* Test Item Value Reference Range Interpretation Comments NT PRO-BRAIN NATRIURETIC PEPTI (test code = PROBNP) pg/mL 0- 299 Last PROBNP result: 21846 g/dL on 01/05/19540COMPREHENSIVE METABOLIC PANEL 2019-01-09 05:13:00* [...] 156 U/L 38-126 H Last PROBNP result: 92792 g/dL on 01/05/19 - [id number] 05:13:00* Test Item Value Reference Range Interpretation Comments MAGNESIUM (test code = MAG) mg/dL 1.6-2.3 Last PROBNP result: 37847 g/dL on 01/05/19 - 540NT PRO-BRAIN NATRIURETIC PEPTI 2019-01-09 05:13:00* Test Item Value Reference Range Interpretation Comments NT PRO-BRAIN NATRIURETIC PEPTI (test code = PROBNP) pg/mL 0- 299 Last PROBNP result: 12352 g/dL on 01/05/19 - 540CBC W/AUTO [id number] 04:49:00* Test Item Value Reference Range Interpretation [...] = BA#) 0.03 x10 3/uL 0.0-0.1 N [id number] 20:04:00* Test Item Value Reference Range Interpretation Comments GLUBED (test code = GLUBED) 85 MG/DL 74-106 N [id number] 17:01:00* Test Item Value Reference Range Interpretation Comments GLUBED (test code = GLUBED) 97 MG/DL 74-106 N [id number] 11:39:00* Test Item Value Reference Range Interpretation Comments GLUBED (test code = GLUBED) 113 MG/DL 74-106 H [id number] 07:14:00* Test Item Value Reference Range Interpretation Comments HAPTOGLOBIN (test code = HAPT) 461 mg/dL 34-200 A Performed At: [facility] [id number] Sanjai MD Ph:[phone] SENT 2 MLS SERUM REFR[facility]ERTAED TO [facility] [id number] 06:10:00* Test Item Value Reference Range Interpretation Comments GLUBED (test code = GLUBED) 83 MG/DL 74-106 N BASIC METABOLIC [id number] 06:02:00* Test Item Value Reference Range Interpretation [...] code = CA) 9.0 mg/dL 8.4-10.2 N [id number] 06:02:00* Test Item Value Reference Range Interpretation Comments MAGNESIUM (test code = MAG) 2.0 mg/dL 1.6-2.3 N CBC W/MANUAL [id number] 05:06:00* Test Item Value Reference Range Interpretation [...] PLTMORPH) NORMAL NORMAL - XR CHEST 1 [id number] 04:42:00 FAX: Kofi Briones [phone] [place]: St: ADM FAX: Patricia Moreno MD [phone] Name: LEONOR VELIZ [facility] : 1950 Age/S: 68/F [address] Unit #: [id number] Loc: ICU[address] [place] [address] Phys: Kofi Bean MD Acct: [id number] Dis Date: Status: ADM IN PHONE #: [phone] Exam Date: 01/07/2019 0417 FAX #: [phone] Reason: chf EXAMS: CPT CODE: [id number] XR CHEST 1 V 31274 Exam: Chest portable erect Location: F6 History: chf Comparison: 01/05/2019 Findings: No change has occurred in the aeration of the lungs. The heart size is unchanged. The mediastinal silhouette is unremarkable. The bony thorax is intact. Impression: Stable chest/no change. at 3072 Reported and signed by: Ismael Contreras CC: Kofi Bean MD; Patricia Hendrix MD Technologist: MONIQUE MCCLURE RT (R) Trnscrd Date/Time/By: 01/07/2019 (0442) : By: GeniaFC PAGE 1 Signed Report FAX: Kofi Briones [phone] [place]: St: ADM FAX: Patricia Moreno MD [phone] Name: ERIKA CARABALLOLEONOR SYLVESTER [facility] : Age/S: 68/F [address] Unit #: [id number] Loc: C.ICU0 [place] [address] Phys: Kofi Bean MD Acct: [id number] Dis Date: Status: ADM IN PHONE #: [phone] Exam Date: 01/07/2019416 FAX #: [phone] Reason: chf EXAMS: CPT CODE: [id number] XR CHEST 1 V 86256 <Continued> Orig Print D/T: S: 01/07/2019 (1471) PAGE 2 Signed Report CBC W/MANUAL [id number] 04:31:00* Test Item Value Reference Range Interpretation [...] code = LYMPH) % 20.5-45.5 CBC W/MANUAL [id number] 04:31:00* Test Item Value Reference Range Interpretation [...] code = LYMPH) % 20.5-45.5 BASIC METABOLIC [id number] 04:07:00* Test Item Value Reference Range Interpretation [...] code = CA) 9.0 mg/dL 8.4-10.2 N [id number] 04:07:00* Test Item Value Reference Range Interpretation Comments MAGNESIUM (test code = MAG) 1.7 mg/dL 1.6-2.3 N [id number] 22:51:00* Test Item Value Reference Range Interpretation Comments GLUBED (test code = GLUBED) 113 MG/DL 74-106 H [id number] 22:51:00* Test Item Value Reference Range Interpretation Comments GLUBED (test code = GLUBED) 101 MG/DL 74-106 N [id number] 22:51:00* Test Item Value Reference Range Interpretation Comments GLUBED (test code = GLUBED) 68 MG/DL 74-106 L [id number] 19:43:00* Test Item Value Reference Range Interpretation Comments GLUBED (test code = GLUBED) 81 MG/DL 74-106 N - XR SWLW FUNC W/C [id number] 12:31:00 FAX: Alfred Martinez [phone] [place]: [facility]: ADM FAX: Patricia Moreno MD [phone] Name: LEONOR VELIZ [facility] : 1950 Age/S: 68/F [address] Unit #: [id number] Loc: C.ICU0 [place] [address] Phys: Alfred Ragsdale DIRECTOR OF [employer] Acct: [id number] Dis Date: Status: ADM IN PHONE #: [phone] Exam Date: 01/06/2019 1152 FAX #: [phone] Reason: SYMPTOMATIC AT BEDSIDE EXAMS: CPT CODE: [id number] XR SWLW FUNC W/C V 68597 EXAM: Modified barium swallow INDICATION: SYMPTOMATIC AT BEDSIDE LOCATION: [place] [address] COMPARISON: None TECHNIQUE: Triphasic barium was given [...] pene tration. No evidence of aspiration seen. Kenneth barium phas e were administered via teaspoon [...] 1 Signed Report (CONTINUED) FAX: Alfred Martinez [phone] [place]: [facility]: ADM FAX: Patricia Moreno MD [phone] Name: LEONOR VELIZ [facility] : 1950 Age/S: 68/F [address] Unit #: [id number] Loc: C.ICU0 [place] [address] Phys: Alfred Ragsdale NP Acct: [id number] Dis Date: Status: ADM IN PHONE #: [phone] Exam Date: 01/06/2019 1152 FAX #: [phone] Reason: SYMPTOMATIC AT BEDSIDE EXAMS: CPT CODE: [id number] XR SWLW FUNC W/C V 42609 <Continued> CC: Alfred Ragsdale DIRECTOR OF [employer]; Patricia Hendrix MD Technologist: Bennett Lopez Trnrosard Date/Time/By: 01/06/2019 (6161) : By: Vinny PAGE 2 Signed Report FAX: Alfred Martinez [phone] [place]: [facility]: ADM FAX: Patricia Moreno MD [phone] Name: LEONOR VELIZ [facility] Ki george : 1950 Age/S: 68/F [address] Unit #: [id number] Loc: C.ICU0 [place] [address] Phys: Alfred Ragsdale DIRECTOR OF [employer] Acct: [id number] Dis Date: Status: ADM IN PHONE #: [phone] Exam Date: 01/06/2019 1152 FAX #: [phone] Reason: SYMPTOMATIC AT BEDSIDE EXAMS: CPT CODE: [id number] XR SWLW FUNC W/C V 11775 < Continued> Orig Print D/T: S: 01/06/2019 (1813) PAGE 3 Signed Report [id number] 09:23:00* Test Item Value Reference Range Interpretation Comments GLUBED (test code = GLUBED) 108 MG/DL 74-106 H [id number] 09:23:00* Test Item Value Reference Range Interpretation Comments GLUBED (test code = GLUBED) 84 MG/DL 74-106 N POC ARTERIAL BLOOD [id number] 09:07:00* Test Item Value Reference Range Interpretation Comments POC ARTERIAL BLOOD GAS PH (test code = POCPHA) 7.369 7.35-7. 45 N POC ARTERIAL BLOOD GAS PCO2 (test code = HJLQDX2W) 20.3 mmHg 35- 45 LL POC ARTERIAL BLOOD GAS PO2 (test code = ABTGZ8S) 87 mmHg 80-90 N POC HCO3 ARTERIAL (test code = PIHCUA6I) 11.7 mmol/L 22.0-24.0 L POC BASE EXCESS (test code = POCBEA) -14 mmol/L -2.0-2.0 L POC O2 SATURATION (test code = POCO2S) 97 % 95-98 N ABG DELIVERY (test code = KEVAN) Cannula DR NOTIFIED ABG SITE (test code = SITEA) L Rad ALLENS TEST (test code = ALLENS) Pass CBC W/MANUAL [id number] 23:53:00* Test Item Value Reference Range Interpretation [...] PLTMORPH) LARGE PLATELETS SEEN NOR MAL LACTIC [id number] 23:45:00* Test Item Value Reference Range Interpretation Comments LACTIC ACID (test code = LACT) 1.5 mmol/L 0.7-2.0 N BASIC METABOLIC [id number] 23:45:00* Test Item Value Reference Range Interpretation [...] reference ranges for the new Chemistry instrumentation. [id number] 23:45:00* Test Item Value Reference Range Interpretation Comments MAGNESIUM (test code = MAG) 1.6 mg/dL 1.6-2.3 N BASIC METABOLIC [id number] 23:44:00* Test Item Value Reference Range Interpretation [...] DEHYDROGENASE(LDH) (test code = LDH) U/L 313-618 [id number] 23:44:00* Test Item Value Reference Range Interpretation Comments MAGNESIUM (test code = MAG) mg/dL 1.6-2.3 CBC W/MANUAL [id number] 23:35:00* Test Item Value Reference Range Interpretation [...] code = LYMPH) % 20.5-45.5 CBC W/MANUAL [id number] 23:35:00* Test Item Value Reference Range Interpretation [...] (test code = LYMPH) % 20.5-45.5 RETICULOCYTE [id number] 23:27:00* Test Item Value Reference Range Interpretation Comments RETICULOCYTE COUNT (test code = RETICA) 2.7 % 0.5-1.5 H - XR CHEST 1 [id number] 22:33:00 FAX: Carlito Foley [phone] [place]: St: DIS FAX: Michelle Oseguera NP [phone] FAX: Kofi Briones [phone] Name: LEONOR VELIZN [facility] : 1950 Age/S: 68/F [address] Unit #: [id number] Loc: C.ICU0 [place] [address] Phys: Michelle Bloom NP Acct: [id number] Dis Date: 20190105 Status: DIS IN PH ONE #: [phone] Exam Date: 01/05/20192219 FAX #: [phone] Reason: sob EXAMS: CPT CODE: [id number] XR CHEST 1 V 77419 HISTOR Y: Shortness of breath Location: C3 COMPARISON:01/03/2019 FINDINGS: Heart size and vascularity are within normal limits. Patchy right basilar opacity is demonstrated. There is no pneumothorax. No other changes. IMPRESSION: 1. Patchy right basilar opacity most compatible with pneumonia. Fo llow-up to resolution recommended. at 2233 Reported and signed by: Siddharth Galindo MD CC: Carlito Cordero; Michelle Bloom NP; Isabel Bean MD Technologist: RT Portillo (R) Trnscrd Date/Time/By: 01/05/2019 (8852) : By: GeniaRXC2 PAGE 1 Signed Report FAX: Carlito Estrella [phone] [place]: St: DIS FAX: Criselda Oseguera NP [phone] FAX: Kofi Briones [phone] ------ Name: LEONOR VELIZ [facility] : [birth year] Age/S: 68/F [address] Unit #: [id number] Loc: C.ICU0 [place] [address] Phys: Michelle Bloom NP Acct: [id number] Dis Date: 20190105 Status: DIS IN PHONE #: Exam Date: 01/05/20190 FAX #: [phone] Reason: sob EXAMS: CPT CODE: [id number] XR CHEST 1 V 54564 <Continued> Orig Print D/T: S: 01/05/2019 (0538) PAGE 2 Signed Report NT PRO-BRAIN NATRIURETIC [id number] 11:50:00* Test Item Value Reference Range Interpretation Comments NT PRO-BRAIN NATRIURETIC PEPTI (test code = PROBNP) 80291 pg/mL 0- 299 H ~~~~~~~~~~~~~~~~~~~~~~~~~~~~~~~~~~~~~~~~~~~~~~~~~~~~~~~~~~~~NT PRO-BNP IS THE REPLACEMENT ASSAY FOR BNP.~~~~~~~~~~~~~~~~~~~~~~~~~~~~~~~~~~~~~~~~~~~~~~~~~~~~~~~~~~~~RULE-IN CUT POINTS FOR PATIENTS WITH SUSPECTED ACUTECONGESTIVE HEART FAILURE:<50 yrs old: >450 pg/mL50-75 yrs old: >900 pg/mL>75 yrs old: >1800 pg/mLA positive bias may occur on patients taking BIOTINsupplements. Last PROBNP result: 40130 g/dL on 12/09/18 - 0543CB W/MANUAL [id number] 07:11:00* Test Item Value Reference Range Interpretation [...] code = PLTMORPH) NORMAL NORMAL BASIC METABOLIC [id number] 06:19:00* Test Item Value Reference Range Interpretation [...] CA) 7.7 mg/dL 8.4-10.2 L CBC W/MANUAL [id number] 05:57:00* Test Item Value Reference Range Interpretation [...] code = LYMPH) % 20.5-45.5 CBC W/MANUAL [id number] 05:57:00* Test Item Value Reference Range Interpretation [...] = LYMPH) % 20.5-45.5 - US ABDOMEN [id number] 20:09:00 FAX: Carlito Foley [phone] [place]: St: ADM FAX: Kofi Briones [phone] FAX: Marcie Kitchen [phone] Name: LEONOR VELIZ [facility] : 1950 Age/S: 68/F [address] Unit #: [id number] Loc: C.6609 [place] [address] Phys: Marcie Lentz NP Acct: [id number] Dis Date: Status: ADM IN ONE #: [phone] Exam Date: 01/04/20191931 FAX #: [phone] Reason: distal incision site w/ redness and swelling r/ EXAMS: CPT CODE: [id number] ABDOMEN LTD 10786 EXAM: - US AB DOMEN LTD INDICATION: [...] by Ignacio Nieves MD on 01/04/2019 at 2009 Reported and signed by: Lizbeth MOORE, Ignacio CC: Carlito Cordero; Kofi Bean MD; Marcie Lentz NP Technologist: Neftaly Lott [facility] Trnscrd Date/Time/By: 01/04/2019 (2008) : By: Yuri.HV2 PAGE 1 Signed Report FAX: Carlito Foley [phone] [place]: St: ADM FAX: Michael Kofi Bean Josselin [phone] FAX: Marcie Kitchen [phone] Name: KERENLEONORALESSANDRO PHAN [facility] : 1950 Age/S: 68/F [address] Unit #: [id number] Loc: C.6[address] [place] [address] Phys: Marcie Lentz DIRECTOR OF [employer] Acct: [id number] Dis Date: Status: ADM IN PHONE #: [phone] Exam Date: 01/04/2019 193 FAX #: [phone] Reason: distal incision site w/ redness and swelling r/ EXAMS: CPT CODE: [id number] ABDOMEN LTD 27679 <Continued> Orig Print D/T: S: 01/04/2019 (2011) PAGE 2 Signed Report BASIC METABOLIC [id number] 06:18:00* Test Item Value Reference Range Interpretation [...] CA) 8.6 mg/dL 8.4-10.2 N CBC W/AUTO [id number] 06:01:00* Test Item Value Reference Range Interpretation [...] 0.04 x10 3/uL 0.0-0.1 N COMPREHENSIVE METABOLIC [id number] 01:22:00* Test Item Value Reference Range Interpretation [...] 38-126 H UA RFLX MICR CULT IF [id number] 00:49:00* Test Item Value Reference Range Interpretation [...] Culture: Temperature > 100.4F- CT CHEST W/O [id number] 00:43:00 FAX: Carlito Foley [facility] [phone] [place]: St: ADM FAX: Kofi Briones [phone] FAX: Marcie Kitchen [phone] [facility] 1950 Age/S: 68/F [address] Unit: [id number] Loc: C.6[address] [place] [address] Phys: LachelleJosie xiongnda [employer]OR [employer] Acct: [id number] Dis Date: Status: ADM IN PHONE #: [phone] Exam Date: 01/03/2019 0015 FAX #: [phone] Reason: cough, febrile, leukocytosis EXAMS: CPT CODE: [id number] CT CHEST W/O CONTRAST 62054 HISTORY: Fem cristi, 68 years of age [...] 1 Signed Report (CONTINUED) FAX: Carlito Foley [phone] [place]: St: ADM FAX: Kofi Briones [phone] FAX: Marcie Sanchez [phone] Name: LEONOR VELIZ [facility] Tomas [place] : 1950 Age/S: 68/F [address] Unit: [id number] Loc: C.6[address] [place] [address] Phys: Marcie Lentz NP Acct: [id number] Dis Date: Status: ADM IN PHONE #: [phone] Exam Date: 01/03/2019 0015 FAX #: [phone] Reason: cough, febrile, leukocytosis EXAMS: CPT CODE: [id number] CT CHEST W/O CONTRAST 36619 < Continued> at 0043 Reported and signed by: Karolyn Alicia MD CC: Carlito Cordero; Kofi Bean MD; Marcie Lentz NP Technologist: James Hawk Trnscrd Dt/Tm: 01/04/2019 (0043) tHERNAN.CLW Orig Print D/T: S: 01/04/2019 (0046 PAGE 2 Signed Report - CT CHEST W/O [id number] 00:43:00 FAX: Carlito Foley [phone] [place]: St: DIS FAX: Michael Kofi Bean [phone] FAX: Marcie Kitchen [phone] Name: LEONOR VELIZ [facility] : 1950 Age/S: 68/F [address] Unit: [id number] Loc: C.ICU[address] [place] [address] Phys: Marcie Lentz [employer]OR [employer] Acct: [id number] Dis Date: 01/05/2019 Status: DIS IN PHONE #: [phone] Exam Date: 01/03/2019 0015 FAX #: [phone] Reason: cough, febrile, leukocytosis EXAMS: CPT CODE: [id number] CT CHEST W/O CONTRAST 88382 HISTORY: Fem cristi, 68 years of age [...] 1 Signed Report (CONTINUED) FAX: Carlito Foley [phone] [place]: St: DIS FAX: Kofi Briones [phone] FAX: Marcie Sanchez [phone] Name: KERENLEONOR GHOSHN [facility] [place] : 1950 Age/S: 68/F [address] Unit: [id number] Loc: .ICU0 [place] [address] Phys: Marcie Lentz [employer] Acct: [id number] Dis Date: 01/05/2019 Status: DIS IN PHONE #: [phone] Exam Date: 01/03/2019 0015 FAX #: [phone] Reason: cough, febrile, leukocytosis EXAMS: CPT CODE: [id number] CT CHEST W/O CONTRAST 94871 < Continued> at 0043 Reported and signed by: Karolyn Alicia MD CC: Carlito Cordero; Kofi Bean MD; Marcie Lentz NP Technologist: James Johnson; HELEN HESS Trnscrd Dt/Tm: 01/04/2019 (0043) t.SDR.CLW Orig Print D/T: S: 01/04/2019 (0046 PAGE 2 Signed Report LACTIC [id number] 23:14:00* Test Item Value Reference Range Interpretation Comments LACTIC ACID (test code = LACT) 2.0 mmol/L 0.7-2.0 N REPORTED TO CSH5231 [id number] 23:11:00* Test Item Value Reference Range Interpretation Comments CREATININE (test code = CREAT) 1.7 mg/dL 0.5-1.0 H BILIRUBIN [id number] 23:11:00* Test Item Value Reference Range Interpretation Comments BILIRUBIN TOTAL (test code = BILT) 0.2 mg/dL 0.2-1.3 N CBC W/AUTO [id number] 22:59:00* Test Item Value Reference Range Interpretation [...] 3/uL 0.0-0.1 N - XR CHEST 1 [id number] 15:36:00 FAX: Carlito Foley [phone] [place]: St: [facility] FAX: Kofi Briones [phone] FAX: Marcie Kitchen [phone] Name: LEONOR VELIZ [facility] : 1950 Age/S: 68/F [address] Unit #: [id number] Loc: C.6[address] [place] [address] Phys: Marcie Lentz DIRECTOR [employer] Acct: [id number] Dis Date: Status: ADM IN ONE #: [phone] Exam Date: 01/03/2019 1455 FAX #: [phone] Reason: continuous cough EXAMS: CPT CODE: [id number] XR CHEST 1 V 39169 EXAM: CHEST ONE VIEW INDICATION: Cough COMPARISON: December 24, 2018 TECHNIQUE: AP view of the chest FINDINGS: The heart size is normal. The lungs are clear bilaterally. The pulmonary vas culature is normal. No pneumothorax or pleural effusion is identified. T he osseous structures are normal. IMPRESSION: No acute c ardiopulmonary process. [facility] Signed by Barbi Guadarrama MD on 01/03/2019 at 1536 Repor gilbert and signed by: Barbi Guadarrama MD CC: Carlito jaramillo; Kofi Bean MD; Marcie Lentz NP Technologist: Alyce Huff Date/Time/By: 01/03/2019 (1536) : By: Cecy D16 PAGE 1 Signed Report FAX: Carlito Foley [phone] [place]: St: ADM FAX: Kofi Briones [phone] FAX: Paul Kitchen [phone] Name: LEONOR VELIZ [facility] : 1950 Age/S: 68/F [address] Unit #: [id number] Loc: C.6[address] [place] [address] Phys: Marcie Lentz DIRECTOR OF [employer] Acct: [id number] Dis Date: Status: ADM IN PHONE #: [phone] Exam Date: 01/03/2019 4602 FAX #: [phone] Reason: continuous cough EXAMS: CPT CODE: [id number] XR CHEST 1 V 38702 <Continued> Orig Print D/T: S: 01/03/2019 (9112) PAGE 2 Signed Report CBC W/MANUAL [id number] 06:58:00* Test Item Value Reference Range Interpretation [...] code = PLTMORPH) NORMAL NORMAL BASIC METABOLIC [id number] 06:44:00* Test Item Value Reference Range Interpretation [...] CA) 8.8 mg/dL 8.4-10.2 N CBC W/MANUAL [id number] 06:33:00* Test Item Value Reference Range Interpretation [...] code = LYMPH) % 20.5-45.5 CBC W/MANUAL [id number] 06:33:00* Test Item Value Reference Range Interpretation [...] (test code = LYMPH) % 20.5-45.5 HGB [id number] 04:41:00* Test Item Value Reference Range Interpretation Comments HEMOGLOBIN (test code = HGB) 8.1 g/dL 12.0-16.0 L HEMATOCRIT (test code = HCT) 26.3 % 36.0-46.0 L HGB [id number] 06:18:00* Test Item Value Reference Range Interpretation Comments HEMOGLOBIN (test code = HGB) 8.1 g/dL 12.0-16.0 L HEMATOCRIT (test code = HCT) 26.5 % 36.0-46.0 L [id number] 13:01:00* Test Item Value Reference Range Interpretation Comments GLOBULIN (test code = GLOB) 2.7 g/dL 2.2-3.9 ALBUMIN/GLOBULIN RATIO (test code = A/G) 1.0 0.7-1.7 TOTAL PROTEIN (test code = PROTE) 5.3 g/dL 6.0-8.5 L ALBUMIN (test code = ALBE) 2.6 g/dL 2.9-4.4 L YHDQC-7-HZFBFOYD (test code = A1G) 0.4 g/dL 0.0-0.4 NBJOT-3-DNAEAPWM (test code = A2G) 1.1 g/dL 0.4-1.0 A BETA GLOBULIN (test code = BG) 1.0 g/dL 0.7-1.3 GAMMA GLOBULIN (test code = GG) 0.2 g/dL 0.4-1.8 A M-SPIKE,SERUM (test code = MSPIKES) NOT OBSERVED PROT.ELECTROPH.INTERPRETATION (test code = ELEINT) Protein electrophoresis scan will follow via computer,mail, or pay station department manager delivery.Performed At: [facility] [address] [id number] Gene Vicente MD Ph:[phone] At: [facility] [address] [place], [place] [address]Lnaljgu CN MD Ph:[phone] IMMUNOGLOBULIN A (test code = IMTIAZ) 24 mg/dL 87-352 A Result confirmed on concentration. IMMUNOGLOBULIN G (test code = IMMG) 87 mg/dL 700-1600 A Result confirmed on concentration. IMMUNOGLOBULIN M (test code = IMMM) 11 mg/dL 26-217 A Result confirmed on concentration. IEP INTERPRETATION (test code = IEPINT) All immunoglobulins appear decreased. Pattern suggestive ofhypogammaglobulinemia. VITAMIN [id number] 13:01:00* Test Item Value Reference Range Interpretation Comments VITAMIN B12 (test code = VITB12) 980 pg/mL 239-931 H FOLIC [id number] 13:01:00* Test Item Value Reference Range Interpretation Comments FOLIC ACID (test code = FOL) > 20.0 ng/mL REFERENCE RANGE:2.76 - >20 ng/mL A positive bias may occur on patients taking BIOTINsupplements. [id number] 13:01:00* Test Item Value Reference Range Interpretation Comments FERRITIN (test code = ERWIN) 359 ng/mL 11.1-264 H HGB [id number] 06:24:00* Test Item Value Reference Range Interpretation Comments HEMOGLOBIN (test code = HGB) 9.6 g/dL 12.0-16.0 L HEMATOCRIT (test code = HCT) 30.6 % 36.0-46.0 L [id number] 21:34:00* Test Item Value Reference Range Interpretation Comments GLOBULIN (test code = GLOB) 2.7 g/dL 2.2-3.9 ALBUMIN/GLOBULIN RATIO (test code = A/G) 1.0 0.7-1.7 TOTAL PROTEIN (test code = PROTE) 5.3 g/dL 6.0-8.5 L ALBUMIN (test code = ALBE) 2.6 g/dL 2.9-4.4 L [id number] (test code = A1G) 0.4 g/dL 0.0-0.4 [id number] (test code = A2G) 1.1 g/dL 0.4-1.0 A BETA GLOBULIN (test code = BG) 1.0 g/dL 0.7-1.3 GAMMA GLOBULIN (test code = GG) 0.2 g/dL 0.4-1.8 A M-SPIKE,SERUM (test code = MSPIKES) PROT.ELECTROPH.INTERPRETATION (test code = ELEINT) Protein electrophoresis scan will follow via computer,mail, or pay station department manager delivery.Performed At: [facility] [id number] [place], [place] [id number] Gene Vicente MD Ph:[phone] At: [facility] [id number] [place], [place] [id number] CN MD Ph:[phone] IMMUNOGLOBULIN A (test code = IMTIAZ) 24 mg/dL 87-352 A Result confirmed on concentration. IMMUNOGLOBULIN G (test code = IMMG) 87 mg/dL 700-1600 A Result confirmed on concentration. IMMUNOGLOBULIN M (test code = IMMM) 11 mg/dL 26-217 A Result confirmed on concentration. IEP INTERPRETATION (test code = IEPINT) All immunoglobulins appear decreased. Pattern suggestive ofhypogammaglobulinemia. VITAMIN [id number] 21:34:00* Test Item Value Reference Range Interpretation Comments VITAMIN B12 (test code = VITB12) 980 pg/mL 239-931 H FOLIC [id number] 21:34:00* Test Item Value Reference Range Interpretation Comments FOLIC ACID (test code = FOL) > 20.0 ng/mL REFERENCE RANGE:2.76 - >20 ng/mL A positive bias may occur on patients taking BIOTINsupplements. [id number] 21:34:00* Test Item Value Reference Range Interpretation Comments FERRITIN (test code = ERWIN) 359 ng/mL 11.1-264 H CBC W/MANUAL [id number] 06:31:00* Test Item Value Reference Range Interpretation [...] LARGE PLATELETS SEEN NOR MAL BASIC METABOLIC [id number] 06:21:00* Test Item Value Reference Range Interpretation [...] CA) 8.9 mg/dL 8.4-10.2 N CBC W/MANUAL [id number] 06:15:00* Test Item Value Reference Range Interpretation [...] code = LYMPH) % 20.5-45.5 CBC W/MANUAL [id number] 06:15:00* Test Item Value Reference Range Interpretation [...] LYMPHOCYTE (test code = LYMPH) % 20.5-45.5 [id number] 05:36:00* Test Item Value Reference Range Interpretation Comments GLUBED (test code = GLUBED) 81 MG/DL 74-106 N [id number] 20:59:00* Test Item Value Reference Range Interpretation Comments GLUBED (test code = GLUBED) 112 MG/DL 74-106 H - XR CHEST 1 [id number] 17:15:00 FAX: Carlito Foley [phone] [place]: St: ADM FAX: Kofi Briones [phone] FAX: Patricia Cadet [phone] Name: LEONOR VELIZ [facility] [place] : 1950 Age/S: 68/F [address] Unit #: [id number] Loc: C.6609 [place] [address] Phys: Patricia Bell DIRECTOR [employer] Acct: [id number] Dis Date: Status: ADM IN ONE #: [phone] Exam Date: 12/24/2018 1636 FAX #: [phone] Reason: cough, r/o infection EXAMS: CPT CODE: [id number] XR CHEST 1 V 78186 EXAM: Portable chest x-ray, one view INDICATION: [...] Bell NP Technologist: JOSUE PEREZ Date/Time/By: 11/2018 (3876) : By: Vinny PAGE 1 Signed R eport FAX: Carlito Foley [place]: St: ADM FAX: Kofi Briones [phone] FA X: Patricia Cadet [phone] Name: KERENLEONOR SYLVESTER [facility] : 1950 Age/S: 68/F [address] Unit #: [id number] Loc: C.10[address] [place] [address] Phys: Patricia Bell NP Acct: [id number] Dis Date: Status: ADM IN PHONE #: [phone] Exam Date: 11/2018 1636 FAX #: [phone] Reason: cough, r/o inf ection EXAMS: CPT CODE: [id number] XR CHEST 1 V 71 045 <Continued> Orig Print D/T: S: 12/24/2018 (1718) PAGE 2 Signed Report - CT ABD PELVIS W/O [id number] 17:05:00 FAX: Alexus Freire MD [phone] [place]: [facility]: ADM FAX: Carlito Foley [phone] FAX: Kofi Briones [phone] Name: LEONOR VELIZ [facility] : 1950 Age/S: 68/F [address] Unit: [id number] Loc: C.1234 [place] [address] Phys: Alexus Elliott MD Acct: [id number] Dis Date: Status: ADM IN PHONE #: [phone] Exam Date: 12/24/2018 1555 FAX #: [phone] Reason: BLOOD LOSS ANEMIA/RETROPERITONEAL BLEEDING EXAMS: CPT CODE: [id number] CT ABD PELVIS W/O CONT 75331 EXAM: CT pelvis without contrast HISTORY: 68 [...] Signed Report (CONTINUED) FAX: Alexus Freire MD [phone] [place]: St: ADM FAX: Carlito Foley [phone] FAX: Kofi Briones [phone] Name: KERNELEONORALESSANDRO PHAN [facility] : 1950 Age/S: 68/F [address] Unit: [id number] Loc: C.6[address] [place] [id number] Phys: Alexus Elliott MD Acct: [id number] Dis Date: Status: ADM IN PHONE #: [phone] Exam Date: 12/24/2018 1555 FAX #: [phone] Reason: BLOOD LOSS ANEMIA/RE TROPERITONEAL BLEEDING EXAMS: CPT CODE: [id number] CT ABD PELVIS W/O CONT 76475 <Continued> hydronephrosis. no nephrolithiasis Left kidney: The [...] Signed Report (CONTINUED) FAX: Alexus Freire MD [phone] [place]: St: ADM FAX: Michael CorderoCarlito Arth FAX: Kofi Briones [phone] Name: Isabel VELIZ [facility] : 1950 Ag e/S: 68/F [address] Unit: [id number] Loc: C6609 [place] [address] Phys: Alexus Elliott MD Acct: [id number] Dis Date: Status: ADM IN PHONE #: [phone] Exam Date: 12/24/2018 1555 FAX #: [phone] Reason : BLOOD LOSS ANEMIA/RETROPERITONEAL BLEEDING EXAMS: CPT CODE: [id number] CT ABD PELVIS W/O CONT 61518 <Continued> 4. Status post IVC filter placement. 5. Status post posterior spine fusion of the mid-lumbar spine. 6. Chronic T9 compression fx RECOMMENDATIONS: None. Internal Coding only:B3 at 1705 Reported and signed by: Baljinder Pfeiffer M.D. CC: Alexus Elliott MD; Carlito Cordero; Kofi Bean MD Technologist: Mirella Campos Trnscrd Dt/Tm: 12/24/2018 (2770) Vinny Orig Print D/T: S: 12/24/2018 (8464 PAGE 3 Signed Report COMPREHENSIVE METABOLIC [id number] 05:57:00* Test Item Value Reference Range Interpretation [...] code = ALKP) 205 U/L 38-126 H [id number] 05:57:00* Test Item Value Reference Range Interpretation Comments PREALBUMIN (test code = PREALB) 32.29 mg/dL 17.6-36.0 N COMPREHENSIVE METABOLIC [id number] 05:49:00* Test Item Value Reference Range Interpretation [...] code = ALKP) 205 U/L 38-126 H [id number] 05:49:00* Test Item Value Reference Range Interpretation Comments PREALBUMIN (test code = PREALB) mg/dL 17.6-36.0 PROTHROMBIN [id number] 05:43:00* Test Item Value Reference Range Interpretation [...] with Food and Drug Administrationrecommendations. THROMBOPLASTIN TIME [id number] 05:43:00* Test Item Value Reference Range Interpretation Comments THROMBOPLASTIN TIME PARTIAL (test code = PTT) 26.4 SECONDS 23.4-37. 0 N Therapeutic Range for Heparin EFFECTIVE 04/01/13 Heparin IU/mL aPTT Seconds0.3 64.30.7 88.8 URINALYSIS [id number] 05:40:00* Test Item Value Reference Range Interpretation [...] 0-5 (RARE) /HPF 0-5 (RARE) CBC W/AUTO [id number] 05:38:00* Test Item Value Reference Range Interpretation [...] BA#) 0.02 x10 3/uL 0.0-0.1 N URINALYSIS [id number] 05:35:00* Test Item Value Reference Range Interpretation [...] = SQU) 0-5 (RARE) /HPF 0-5 (RARE) [id number] 20:13:00* Test Item Value Reference Range Interpretation Comments GLUBED (test code = GLUBED) 124 MG/DL 74-106 H PROTEIN ELECTROPHORESIS [id number] 06:09:00* Test Item Value Reference Range Interpretation Comments TOTAL PROTEIN (test code = PROTE) gm/dl 6.0-8.5 ALBUMIN (test code = ALBE) g/dl 3.2-5.6 PTHCI-9-ZAWGPNRB (test code = A1G) g/dL WGYIL-7-KPHYYNMD (test code = A2G) g/dL BETA GLOBULIN (test code = BG) g/dL GAMMA GLOBULIN (test code = GG) g/dL M-SPIKE,SERUM (test code = MSPIKES) GLOBULIN ELECT (test code = GLOBE) ALBUMIN/GLOBULIN RATIO (test code = AGE) PROT.ELECTROPH.INTERPRETATION (test code = ELEINT) [id number] 06:09:00* Test Item Value Reference Range Interpretation Comments GLOBULIN (test code = GLOB) g/dL ALBUMIN/GLOBULIN RATIO (test code = A/G) IMMUNOGLOBULIN A (test code = IMTIAZ) mg/dL IMMUNOGLOBULIN G (test code = IMMG) mg/dL IMMUNOGLOBULIN M (test code = IMMM) mg/dL IEP INTERPRETATION (test code = IEPINT) VITAMIN [id number] 06:09:00* Test Item Value Reference Range Interpretation Comments VITAMIN B12 (test code = VITB12) 980 pg/mL 239-931 H FOLIC [id number] 06:09:00* Test Item Value Reference Range Interpretation Comments FOLIC ACID (test code = FOL) > 20.0 ng/mL REFERENCE RANGE:2.76 - >20 ng/mL A positive bias may occur on patients taking BIOTINsupplements. [id number] 06:09:00* Test Item Value Reference Range Interpretation Comments FERRITIN (test code = ERWIN) 359 ng/mL 11.1-264 H PROTEIN ELECTROPHORESIS [id number] 05:37:00* Test Item Value Reference Range Interpretation Comments TOTAL PROTEIN (test code = PROTE) gm/dl 6.0-8.5 ALBUMIN (test code = ALBE) g/dl 3.2-5.6 VMWUW-6-TWMDLYJV (test code = A1G) g/dL NVOLP-8-PBOTGXRG (test code = A2G) g/dL BETA GLOBULIN (test code = BG) g/dL GAMMA GLOBULIN (test code = GG) g/dL M-SPIKE,SERUM (test code = MSPIKES) GLOBULIN ELECT (test code = GLOBE) ALBUMIN/GLOBULIN RATIO (test code = AGE) PROT.ELECTROPH.INTERPRETATION (test code = ELEINT) [id number] 05:37:00* Test Item Value Reference Range Interpretation Comments GLOBULIN (test code = GLOB) g/dL ALBUMIN/GLOBULIN RATIO (test code = A/G) IMMUNOGLOBULIN A (test code = IMTIAZ) mg/dL IMMUNOGLOBULIN G (test code = IMMG) mg/dL IMMUNOGLOBULIN M (test code = IMMM) mg/dL IEP INTERPRETATION (test code = IEPINT) VITAMIN [id number] 05:37:00* Test Item Value Reference Range Interpretation Comments VITAMIN B12 (test code = VITB12) pg/mL 239-931 FOLIC [id number] 05:37:00* Test Item Value Reference Range Interpretation Comments FOLIC ACID (test code = FOL) ng/mL [id number] 05:37:00* Test Item Value Reference Range Interpretation Comments FERRITIN (test code = ERWIN) 359 ng/mL 11.1-264 H FE W/TOTAL IRON BINDING CAP.2018-12-23 05:18:00* Test Item Value Reference Range Interpretation Comments IRON (test code = IRON) 36 ug/dL 37-170 L TOTAL IRON BINDING CAPACITY (test code = TIBC) 291 ug/dL 265-497 N IRON SATURATION (test code = FESAT) 12 % 20-55 L BASIC METABOLIC [id number] 05:11:00* Test Item Value Reference Range Interpretation [...] (test code = FESAT) % 20-55 RETICULOCYTE [id number] 05:02:00* Test Item Value Reference Range Interpretation Comments RETICULOCYTE COUNT (test code = RETICA) 7.1 % 0.5-1.5 H CBC W/AUTO [id number] 04:48:00* Test Item Value Reference Range Interpretation [...] = BA#) 0.05 x10 3/uL 0.0-0.1 N [id number] 04:36:00* Test Item Value Reference Range Interpretation Comments GLUBED (test code = GLUBED) 97 MG/DL 74-106 N [id number] 21:06:00* Test Item Value Reference Range Interpretation Comments GLUBED (test code = GLUBED) 137 MG/DL 74-106 H BASIC METABOLIC [id number] 05:34:00* Test Item Value Reference Range Interpretation [...] code = CA) 9.2 mg/dL 8.4-10.2 N [id number] 05:34:00* Test Item Value Reference Range Interpretation Comments MAGNESIUM (test code = MAG) 1.9 mg/dL 1.6-2.3 N BASIC METABOLIC [id number] 05:33:00* Test Item Value Reference Range Interpretation [...] code = CA) 9.2 mg/dL 8.4-10.2 N [id number] 05:33:00* Test Item Value Reference Range Interpretation Comments MAGNESIUM (test code = MAG) mg/dL 1.6-2.3 CBC W/AUTO [id number] 05:20:00* Test Item Value Reference Range Interpretation [...] BA#) 0.04 x10 3/uL 0.0-0.1 N DIFFERENTIAL [id number] 05:20:00* Test Item Value Reference Range Interpretation Comments DIFFERENTIAL COMMENT (test code = DC) CBC W/AUTO [id number] 05:20:00* Test Item Value Reference Range Interpretation [...] = BA#) 0.04 x10 3/uL 0.0-0.1 N [id number] 21:18:00* Test Item Value Reference Range Interpretation Comments GLUBED (test code = GLUBED) 143 MG/DL 74-106 H BASIC METABOLIC [id number] 05:00:00* Test Item Value Reference Range Interpretation [...] code = CA) 9.2 mg/dL 8.4-10.2 N [id number] 05:00:00* Test Item Value Reference Range Interpretation Comments MAGNESIUM (test code = MAG) 2.1 mg/dL 1.6-2.3 N HGB [id number] 15:30:00* Test Item Value Reference Range Interpretation Comments HEMOGLOBIN (test code = HGB) 8.0 g/dL 12.0-16.0 L HEMATOCRIT (test code = HCT) 25.4 % 36.0-46.0 L CBC W/MANUAL [id number] 04:07:00* Test Item Value Reference Range Interpretation [...] Phleb: IF not already drawn todayBASIC METABOLIC [id number] 03:53:00* Test Item Value Reference Range Interpretation [...] stoppedComments to Phleb: IF not already drawn [id number] 03:53:00* Test Item Value Reference Range Interpretation Comments PHOSPHOROUS (test code = PHOS) 5.0 mg/dL 2.5-4.5 H Spec Comments: Order to be discontinued when PN is stoppedComments to Phleb: IF not already drawn bdtrrQQXKEENEP8962-76-41 03:53:00* Test Item Value Reference Range Interpretation Comments MAGNESIUM (test code = MAG) 2.2 mg/dL 1.6-2.3 N Spec Comments: Order to be discontinued when PN is stoppedComments to Phleb: IF not already drawn todayCBC W/MANUAL [id number] 03:37:00* Test Item Value Reference Range Interpretation [...] Phleb: IF not already drawn todayCBC W/MANUAL [id number] 03:37:00* Test Item Value Reference Range Interpretation [...] stoppedComments to Phleb: IF not already drawn [id number] 17:06:00* Test Item Value Reference Range Interpretation Comments GLUBED (test code = GLUBED) 93 MG/DL 74-106 N [id number] 05:51:00* Test Item Value Reference Range Interpretation Comments GLUBED (test code = GLUBED) 72 MG/DL 74-106 L CBC W/MANUAL [id number] 04:36:00* Test Item Value Reference Range Interpretation [...] Phleb: IF not already drawn todayBASIC METABOLIC [id number] 04:29:00* Test Item Value Reference Range Interpretation [...] to be discontinue d when PN is gjhwdunZLGBAKPXNJO0346-05-63 04:29:00* Test Item Value Reference Range Interpretation Comments PHOSPHOROUS (test code = PHOS) 4.1 mg/dL 2.5-4.5 N Spec Comments: Order to be discontinued when PN is stoppedComments to Phleb: IF not already drawn todaySpec Comments: weeklyComments to Phleb: to be discontinue d when PN is vrcsrftFAFZUYSERJQVF0195-99-80 04:29:00* Test Item Value Reference Range Interpretation Comments TRIGLYCERIDES (test code = TRIG) 285 mg/dL TRIGLYCERIDES REFERENCE RANGE:Normal: <150 mg/dLBorderline High: 150-199 mg/dLHigh: 200-499 mg/dLVery High: >=500 mg/dL Spec Comments: Order to be discontinued when PN is stoppedComments to Phleb: IF not already drawn todaySpec Comments: weeklyComments to Phleb: to be discontinue d when PN is [id number] 04:29:00* Test Item Value Reference Range Interpretation Comments MAGNESIUM (test code = MAG) 2.3 mg/dL 1.6-2.3 N Spec Comments: Order to be discontinued when PN is stoppedComments to Phleb: IF not already drawn todaySpec Comments: weeklyComments to Phleb: to be discontinue d when PN is wbtjdkaHIGDSCFNWU1227-59-47 04:29:00* Test Item Value Reference Range Interpretation Comments PREALBUMIN (test code = PREALB) 43.14 mg/dL 17.6-36.0 H Spec Comments: Order to be discontinued when PN is stoppedComments to Phleb: IF not already drawn todaySpec Comments: weeklyComments to Phleb: to be discontinue d when PN is stoppedBASIC METABOLIC [id number] 04:20:00* Test Item Value Reference Range Interpretation [...] to be discontinue d when PN is [id number] 04:20:00* Test Item Value Reference Range Interpretation Comments PHOSPHOROUS (test code = PHOS) 4.1 mg/dL 2.5-4.5 N Spec Comments: Order to be discontinued when PN is stoppedComments to Phleb: IF not already drawn todaySpec Comments: weeklyComments to Phleb: to be discontinue d when PN is nlorznxSKPVMVIQNUJAK9642-55-29 04:20:00* Test Item Value Reference Range Interpretation Comments TRIGLYCERIDES (test code = TRIG) 285 mg/dL TRIGLYCERIDES REFERENCE RANGE:Normal: <150 mg/dLBorderline High: 150-199 mg/dLHigh: 200-499 mg/dLVery High: >=500 mg/dL Spec Comments: Order to be discontinued when PN is stoppedComments to Phleb: IF not already drawn todaySpec Comments: weeklyComments to Phleb: to be discontinue d when PN is kkqjdrsNZMTCPKWW1454-08-47 04:20:00* Test Item Value Reference Range Interpretation Comments MAGNESIUM (test code = MAG) 2.3 mg/dL 1.6-2.3 N Spec Comments: Order to be discontinued when PN is stoppedComments to Phleb: IF not already drawn todaySpec Comments: weeklyComments to Phleb: to be discontinue d when PN is suhwrlpNPOBMNMABM0798-50-55 04:20:00* Test Item Value Reference Range Interpretation Comments PREALBUMIN (test code = PREALB) mg/dL 17.6-36.0 Spec Comments: Order to be discontinued when PN is stoppedComments to Phleb: IF not already drawn todaySpec Comments: weeklyComments to Phleb: to be discontinue d when PN is stoppedPROTHROMBIN [id number] 04:09:00* Test Item Value Reference Range Interpretation [...] d iscontinued when PN is stoppedCBC W/MANUAL [id number] 04:03:00* Test Item Value Reference Range Interpretation [...] Phleb: IF not already drawn todayCBC W/MANUAL [id number] 04:03:00* Test Item Value Reference Range Interpretation [...] stoppedComments to Phleb: IF not already drawn zilzeWXIYRB3556-67-73 02:06:00* Test Item Value Reference Range Interpretation Comments GLUBED (test code = GLUBED) 91 MG/DL 74-106 N [id number] 16:55:00* Test Item Value Reference Range Interpretation Comments GLUBED (test code = GLUBED) 91 MG/DL 74-106 N [id number] 12:42:00* Test Item Value Reference Range Interpretation Comments MAGNESIUM (test code = MAG) 2.7 mg/dL 1.6-2.3 H [id number] 11:58:00* Test Item Value Reference Range Interpretation Comments GLUBED (test code = GLUBED) 139 MG/DL 74-106 H [id number] 05:30:00* Test Item Value Reference Range Interpretation Comments GLUBED (test code = GLUBED) 116 MG/DL 74-106 H COMPREHENSIVE METABOLIC [id number] 03:56:00* Test Item Value Reference Range Interpretation [...] code = ALKP) 231 U/L 38-126 H [id number] 03:56:00* Test Item Value Reference Range Interpretation Comments PHOSPHOROUS (test code = PHOS) 3.3 mg/dL 2.5-4.5 N [id number] 03:56:00* Test Item Value Reference Range Interpretation Comments LIPASE (test code = LIP) 2835 U/L 23-300 H SVZGFDHCN4457-26-08 03:56:00* Test Item Value Reference Range Interpretation Comments MAGNESIUM (test code = MAG) 1.5 mg/dL 1.6-2.3 L CBC W/MANUAL [id number] 03:55:00* Test Item Value Reference Range Interpretation [...] Phleb: IF not already drawn todayCOMPREHENSIVE METABOLIC [id number] 03:49:00* Test Item Value Reference Range Interpretation [...] code = ALKP) 231 U/L 38-126 H DJZIYFAMNTQ5679-58-26 03:49:00* Test Item Value Reference Range Interpretation Comments PHOSPHOROUS (test code = PHOS) 3.3 mg/dL 2.5-4.5 N [id number] 03:49:00* Test Item Value Reference Range Interpretation Comments LIPASE (test code = LIP) U/L 23-300 [id number] 03:49:00* Test Item Value Reference Range Interpretation Comments MAGNESIUM (test code = MAG) 1.5 mg/dL 1.6-2.3 L THROMBOPLASTIN TIME [id number] 03:39:00* Test Item Value Reference Range Interpretation Comments THROMBOPLASTIN TIME PARTIAL (test code = PTT) 63.0 SECONDS 23.4-37. 0 H Therapeutic Range for Heparin EFFECTIVE 04/01/13 Heparin IU/mL aPTT Seconds0.3 64.30.7 88.8 IS PATIENT ON ANTICOAGULANTS ? YESLIST ANTICOAGULANT/ANTI PLT MEDICATION: Sukumar flood [facility]UAL [id number] 03:29:00* Test Item Value Reference Range Interpretation [...] Phleb: IF not already drawn todayCBC W/MANUAL [id number] 03:29:00* Test Item Value Reference Range Interpretation [...] stoppedComments to Phleb: IF not already drawn tdjuzNGLRGO8331-14-89 20:58:00* Test Item Value Reference Range Interpretation Comments GLUBED (test code = GLUBED) 144 MG/DL 74-106 H [id number] 17:37:00* Test Item Value Reference Range Interpretation Comments GLUBED (test code = GLUBED) 110 MG/DL 74-106 H - XR CHEST 1 [id number] 15:31:00 FAX: Michelle Oseguera NP [phone] [place]: St: ADM FAX: Kofi Briones [phone] FAX: Chemo Rivera MD [phone] Name: LEONOR VELIZ [facility] [place] : 1950 Age/S: 68/F [address] Unit #: [id number] Loc: C.[address] [place] [address] Phys: Michelle Bloom NP Acct: [id number] Dis Date: Status: ADM IN PH ONE #: [phone] Exam Date: 12/17/2018 1523 FAX #: [phone] Reason: SOB EXAMS: CPT CODE: [id number] XR CHEST 1 V 83141 Chest Radiogra ph History: SOB Comparison: December 14, 2018 Location: R16 A single frontal view of the chest is submitted. The heart appears unchanged in size. Pulmonary vasculature is unremarkable. The visualized lung rogel appear to be free of dise ase. The bones appear unchanged. The vascular catheter appears uncha nged. IMPRESSION: [facility] acute cardiopulmonary disease. Electronically Signed by Flavio Antonio MD on at 1531 Reported and signed by: Flavio Antonio MD CC: Michelle Bloom NP; Kofi Bean MD; Chemo durham MD Technologist: Treva Vaca; STUDENT 2ND YEAR [facility] Date/Time/By: 12/17/2018 (1531) : By: GeniaPMT PAGE 1 Signed Report FAX: Bhargavi Oseguera NP [phone] [place]: St: ADM FAX: Kofi Briones [phone] FAX: Chemo Rivera MD [phone] Name: LEONOR VELIZ [facility] : 1950 A ge/S: 68/F [address] Unit #: [id number] Loc : [address] [place] [address] Phys: Michelle Bloom DIRECTOR OF [employer] Acct: [id number] Dis Date: Status: ADM IN PHONE #: [phone] E xam Date: 12/17/2018 1523 FAX #: [phone] Reas on: SOB EXAMS: CPT CODE: [id number] XR CHEST 1 V 65015 <Continued> Orig Print D/T: S: 12/17/2018 (1532) PAGE 2 Signed Report [id number] 12:05:00* Test Item Value Reference Range Interpretation Comments GLUBED (test code = GLUBED) 105 MG/DL 74-106 N [id number] 05:23:00* Test Item Value Reference Range Interpretation Comments GLUBED (test code = GLUBED) 123 MG/DL 74-106 H CBC W/MANUAL [id number] 04:00:00* Test Item Value Reference Range Interpretation [...] stoppedComments to Phleb: IF not already [facility] todaySA[facility] METABOLIC [id number] 03:56:00* Test Item Value Reference Range Interpretation [...] stoppedComments to Phleb: IF not already drawn bdwbtVDNCDCCNIPU2524-93-70 03:56:00* Test Item Value Reference Range Interpretation Comments PHOSPHOROUS (test code = PHOS) 3.7 mg/dL 2.5-4.5 N Spec Comments: Order to be discontinued when PN is stoppedComments to Phleb: IF not already drawn eznuiXUEWLICJZ1698-43-06 03:56:00* Test Item Value Reference Range Interpretation Comments MAGNESIUM (test code = MAG) 1.8 mg/dL 1.6-2.3 N Spec Comments: Order to be discontinued when PN is stoppedComments to Phleb: IF not already drawn todayTHROMBOPLASTIN TIME [id number] 03:46:00* Test Item Value Reference Range Interpretation Comments THROMBOPLASTIN TIME PARTIAL (test code = PTT) 49.4 SECONDS 23.4-37. 0 H Therapeutic Range for Heparin EFFECTIVE 04/01/13 Heparin IU/mL aPTT Seconds0.3 64.30.7 88.8 IS PATIENT ON ANTICOAGULANTS ? YESLIST ANTICOAGULANT/ANTI PLT MEDICATION: Sukumar flood [facility] W/MANUAL [id number] 03:41:00* Test Item Value Reference Range Interpretation [...] Phleb: IF not already drawn todayCBC W/MANUAL JJSU1039-05-05 03:41:00* Test Item Value Reference Range Interpretation [...] stoppedComments to Phleb: IF not already drawn cnxztKZCWGG5947-89-30 22:42:00* Test Item Value Reference Range Interpretation Comments GLUBED (test code = GLUBED) 161 MG/DL 74-106 H THROMBOPLASTIN TIME [id number] 21:45:00* Test Item Value Reference Range Interpretation Comments THROMBOPLASTIN TIME PARTIAL (test code = PTT) 25.1 SECONDS 23.4-37. 0 N Therapeutic Range for Heparin EFFECTIVE 04/01/13 Heparin IU/mL aPTT Seconds0.3 64.30.7 88.8 IS PATIENT ON ANTICOAGULANTS ? YESLIST ANTICOAGULANT/ANTI PLT MEDICATION: Sukumar flood ProtocolHEPARIN INDUCED [id number] 21:45:00* Test Item Value Reference Range Interpretation Comments HEPARIN INDUCED THROMBOCYTOPEN (test code = HIT (PF4 JAQUELINE)) NEG ATIVE NEGATIVE OD READING 0.103 RANGE: 0.000-0. 399 IS PATIENT ON ANTICOAGULANTS ? YESLIST ANTICOAGULANT/ANTI PLT MEDICATION: [facility] ProtocolTHROMBOPLASTIN TIME [id number] 19:51:00* Test Item Value Reference Range Interpretation Comments THROMBOPLASTIN TIME PARTIAL (test code = PTT) 57.0 SECONDS 23.4-37. 0 H Therapeutic Range for Heparin EFFECTIVE 04/01/13 Heparin IU/mL aPTT Seconds0.3 64.30.7 88.8 IS PATIENT ON ANTICOAGULANTS ? YESLIST ANTICOAGULANT/ANTI PLT MEDICATION: [facility] [id number] 19:50:00* Test Item Value Reference Range Interpretation Comments POTASSIUM (test code = K) 4.2 mmol/L 3.4-5.0 N [id number] 19:41:00* Test Item Value Reference Range Interpretation Comments GLUBED (test code = GLUBED) 145 MG/DL 74-106 H [id number] 17:32:00* Test Item Value Reference Range Interpretation Comments GLUBED (test code = GLUBED) 145 MG/DL 74-106 H [id number] 13:19:00* Test Item Value Reference Range Interpretation Comments POTASSIUM (test code = K) 3.4 mmol/L 3.4-5.0 N [id number] 13:19:00* Test Item Value Reference Range Interpretation Comments MAGNESIUM (test code = MAG) 2.2 mg/dL 1.6-2.3 N THROMBOPLASTIN TIME [id number] 13:11:00* Test Item Value Reference Range Interpretation Comments THROMBOPLASTIN TIME PARTIAL (test code = PTT) 60.9 SECONDS 23.4-37. 0 H Therapeutic Range for Heparin EFFECTIVE 04/01/13 Heparin IU/mL aPTT Seconds0.3 64.30.7 88.8 IS PATIENT ON ANTICOAGULANTS ? YESLIST ANTICOAGULANT/ANTI PLT [facility] [id number] 04:17:00* Test Item Value Reference Range Interpretation [...] stoppedComments to Phleb: IF not already drawn erjtxLQKBFXFGCLF7684-64-73 04:17:00* Test Item Value Reference Range Interpretation Comments PHOSPHOROUS (test code = PHOS) 4.2 mg/dL 2.5-4.5 N Spec Comments: Order to be discontinued when PN is stoppedComments to Phleb: IF not already drawn [id number] 04:17:00* Test Item Value Reference Range Interpretation Comments MAGNESIUM (test code = MAG) 1.7 mg/dL 1.6-2.3 N Spec Comments: Order to be discontinued when PN is stoppedComments to Phleb: IF not already drawn todayCBC W/AUTO [id number] 03:59:00* Test Item Value Reference Range Interpretation [...] stoppedComments to Phleb: IF not already [facility] today[facility] [id number] 03:56:00* Test Item Value Reference Range Interpretation [...] to Phleb: IF not already drawn todayDIFFERENTIAL [id number] 03:56:00* Test Item Value Reference Range Interpretation Comments DIFFERENTIAL COMMENT (test code = DC) Spec Comments: Order to be discontinued when PN is stoppedComments to Phleb: IF not already drawn today- CT ABD PELVIS W/[id number] 00:28:00 FAX: Don Burt [phone] [place]: St: ADM FAX: Kofi Briones [phone] Name: LEONOR VELIZ [facility] : 1950 Age/S: 68/F [address] Unit: [id number] Loc: C.ICU0 [place] [address] Phys: Don Molina MD Acct: [id number] Dis Date: Status: ADM IN PHONE #: [phone] Exam Date: 12/15/20181934 FAX #: [phone] Reason: sepsis EXAMS: CPT CODE: [id number] CT ABD PELVIS W/CONT 13158 Location: T 18 CT of the abdomen [...] 1 Signed Report (CONTINUED) FAX: Don Burt [phone] [place]: St: ADM FAX: Michael Kofi Beanleana [phone] Name: LEONOR VELIZ [facility] : 1950 Age/S: 68/F [address] Unit: [id number] Loc: C.ICU0 [place] [address] Phys: Don Molina MD Acct: [id number] Dis Date: Status: ADM IN PHONE #: [phone] Exam Date: 12/15/20181934 FAX #: [phone] Reason: sepsis EXAMS: CPT CODE: [id number] CT ABD PELVIS W/CONT 42360 < Continued> definite focal masses or enlargement. [...] 2 Signed Report (CONTINUED) FAX: Don Burt [phone] [place]: St: ADM FAX: Kofi Briones Name: LEONOR VELIZ [facility] : 1950 Age/S: 68/F [address] U nit: [id number] Loc: C.ICU[address] [place] [address] Phys: Don Molina MD Acct: [id number] Dis Date: Status: ADM IN PHONE #: [phone] Exam Date: 12/15/2018 193 FAX #: [phone] Reason: sepsis EXAMS: CPT CODE: [id number] CT ABD PELVIS W/CONT 57399 <Continued> at 0028 Reported and signed by: Marii Noguera MD CC: Don Molina MD; Kofi Bean MD Technologist: Melvina Ramos [facility] Dt/Tm: 12/16/2018 (0028) ElysiaR.DAS6 Orig Print D/T: S: 12/16/2018 (0155 PAGE 3 Sign ed Report [id number] 23:46:00* Test Item Value Reference Range Interpretation Comments GLUBED (test code = GLUBED) 161 MG/DL 74-106 H [id number] 20:50:00* Test Item Value Reference Range Interpretation Comments MAGNESIUM (test code = MAG) 1.9 mg/dL 1.6-2.3 N [id number] 20:50:00* Test Item Value Reference Range Interpretation Comments GLUBED (test code = GLUBED) 81 MG/DL 74-106 N HGB [id number] 20:39:00* Test Item Value Reference Range Interpretation Comments HEMOGLOBIN (test code = HGB) 6.4 g/dL 12.0-16.0 L HEMATOCRIT (test code = HCT) 20.9 % 36.0-46.0 L THROMBOPLASTIN TIME [id number] 19:10:00* Test Item Value Reference Range Interpretation Comments THROMBOPLASTIN TIME PARTIAL (test code = PTT) 21.7 SECONDS 23.4-37. 0 L Therapeutic Range for Heparin EFFECTIVE 04/01/13 Heparin IU/mL aPTT Seconds0.3 64.30.7 88.8 IS PATIENT ON ANTICOAGULANTS ? YESLIST ANTICOAGULANT/ANTI PLT MEDICATION: Sukumar cortezn [id number] 18:28:00* Test Item Value Reference Range Interpretation Comments GLUBED (test code = GLUBED) 130 MG/DL 74-106 H [id number] 12:46:00* Test Item Value Reference Range Interpretation Comments GLUBED (test code = GLUBED) 145 MG/DL 74-106 H BASIC METABOLIC [id number] 04:19:00* Test Item Value Reference Range Interpretation [...] stoppedComments to Phleb: IF not already drawn [id number] 04:19:00* Test Item Value Reference Range Interpretation Comments PHOSPHOROUS (test code = PHOS) 3.3 mg/dL 2.5-4.5 N Spec Comments: Order to be discontinued when PN is stoppedComments to Phleb: IF not already drawn [id number] 04:19:00* Test Item Value Reference Range Interpretation Comments MAGNESIUM (test code = MAG) 1.5 mg/dL 1.6-2.3 L Spec Comments: Order to be discontinued when PN is stoppedComments to Phleb: IF not already drawn todayCBC W/AUTO [id number] 03:53:00* Test Item Value Reference Range Interpretation [...] stoppedComments to Phleb: IF not already drawn [id number] 18:02:00* Test Item Value Reference Range Interpretation Comments GLUBED (test code = GLUBED) 121 MG/DL 74-106 H THROMBOPLASTIN TIME [id number] 17:38:00* Test Item Value Reference Range Interpretation Comments THROMBOPLASTIN TIME PARTIAL (test code = PTT) 58.8 SECONDS 23.4-37. 0 H Therapeutic Range for Heparin EFFECTIVE 04/01/13 Heparin IU/mL aPTT Seconds0.3 64.30.7 88.8 IS PATIENT ON ANTICOAGULANTS ? YESLIST ANTICOAGULANT/ANTI PLT MEDICATION: Sukumar flood ProtocolComments to Phleb: THANK YOU!THROMBOPLASTIN TIME [id number] 11:44:00* Test Item Value Reference Range Interpretation Comments THROMBOPLASTIN TIME PARTIAL (test code = PTT) 66.6 SECONDS 23.4-37. 0 H Therapeutic Range for Heparin EFFECTIVE 04/01/13 Heparin IU/mL aPTT Seconds0.3 64.30.7 88.8 IS PATIENT ON ANTICOAGULANTS ? YESLIST ANTICOAGULANT/ANTI PLT MEDICATION: Sukumar flood ProtocolComments to Phleb: THANK YOU!- XR CHEST 1 [id number] 11:42:00 FAX: Kofi Briones [phone] [place]: St: ADM Name: LEONOR JOHNSON [facility] : [birth year] Age/S: 68/F [address] Unit #: [id number] Loc: C.ICU0 [place] [address] Phys: Kofi Bean MD Acct: [id number] Dis Date: Status: ADM IN PHONE #: [phone] Exam Date: 12/14/2018 1126 FAX #: [phone] Reason: PNA EXAMS: CPT CODE: [id number] XR CHEST 1 V 59926 EXAM: - XR CHEST 1 V LOCATION: [...] Nieves MD CC: Kofi Bean MD Technologist: KEITH TAPIA Jennifer Trnscrd Date/Time/By: (1369) : By: GeniaHV2 PAGE 1 Signed R eport FAX: Kofi Briones [phone] [place]: St: ADM Name: LEONOR VELIZ [facility] Amanda od : 1950 Age/S: 68/F [address] Unit #: [id number] Loc: ICU[address] [place] [address] Phys: Kofi Bean MD Acct: [id number] Dis Date: Status: ADM IN PHONE #: [phone] Exam Date: 12/14/2018 1126 FAX #: [phone] Reason: PNA EXAMS: CPT CODE: [id number] XR CHEST 1 V 98637 < Continued> Orig Print D/T: S: 12/14/2018 (1146) PAGE 2 Signed Report [id number] 11:34:00* Test Item Value Reference Range Interpretation Comments GLUBED (test code = GLUBED) 105 MG/DL 74-106 N [id number] 11:34:00* Test Item Value Reference Range Interpretation Comments GLUBED (test code = GLUBED) 112 MG/DL 74-106 H THROMBOPLASTIN TIME [id number] 05:42:00* Test Item Value Reference Range Interpretation Comments THROMBOPLASTIN TIME PARTIAL (test code = PTT) 70.1 SECONDS 23.4-37. 0 H Therapeutic Range for Heparin EFFECTIVE 04/01/13 Heparin IU/mL aPTT Seconds0.3 64.30.7 88.8 IS PATIENT ON ANTICOAGULANTS ? YESLIST ANTICOAGULANT/ANTI PLT MEDICATION: Sukumar flood ProtocolBASIC METABOLIC [id number] 02:38:00* Test Item Value Reference Range Interpretation [...] stoppedComments to Phleb: IF not already drawn joojnCLWAJDJKYSX3694-03-72 02:38:00* Test Item Value Reference Range Interpretation Comments PHOSPHOROUS (test code = PHOS) 3.2 mg/dL 2.5-4.5 N Spec Comments: Order to be discontinued when PN is stoppedComments to Phleb: IF not already drawn [id number] 02:38:00* Test Item Value Reference Range Interpretation Comments MAGNESIUM (test code = MAG) 1.8 mg/dL 1.6-2.3 N Spec Comments: Order to be discontinued when PN is stoppedComments to Phleb: IF not already drawn todayCBC W/AUTO [id number] 02:26:00* Test Item Value Reference Range Interpretation [...] stoppedComments to Phleb: IF not already drawn [id number] 01:10:00* Test Item Value Reference Range Interpretation Comments GLUBED (test code = GLUBED) 140 MG/DL 74-106 H [id number] 00:05:00* Test Item Value Reference Range Interpretation Comments GLUBED (test code = GLUBED) 130 MG/DL 74-106 H PROTHROMBIN [id number] 23:34:00* Test Item Value Reference Range Interpretation [...] ? YESLIST ANTICOAGULANT/ANTI PLT MEDICATION: Sukumar cortezn ProtocolTHROMBOPLASTIN TIME [id number] 23:34:00* Test Item Value Reference Range Interpretation Comments THROMBOPLASTIN TIME PARTIAL (test code = PTT) 73.5 SECONDS 23.4-37. 0 H Therapeutic Range for Heparin EFFECTIVE 04/01/13 Heparin IU/mL aPTT Seconds0.3 64.30.7 88.8 IS PATIENT ON ANTICOAGULANTS ? YESLIST ANTICOAGULANT/ANTI PLT MEDICATION: Sukumar cortezn [id number] 21:34:00* Test Item Value Reference Range Interpretation Comments POTASSIUM (test code = K) 4.5 mmol/L 3.4-5.0 N THROMBOPLASTIN TIME [id number] 18:08:00* Test Item Value Reference Range Interpretation Comments THROMBOPLASTIN TIME PARTIAL (test code = PTT) 50.9 SECONDS 23.4-37. 0 H Therapeutic Range for Heparin EFFECTIVE 04/01/13 Heparin IU/mL aPTT Seconds0.3 64.30.7 88.8 IS PATIENT ON ANTICOAGULANTS ? YESLIST ANTICOAGULANT/ANTI PLT MEDICATION: Sukumar cortezn [id number] 12:02:00* Test Item Value Reference Range Interpretation Comments POTASSIUM (test code = K) 3.2 mmol/L 3.4-5.0 L [id number] 12:02:00* Test Item Value Reference Range Interpretation Comments MAGNESIUM (test code = MAG) 2.7 mg/dL 1.6-2.3 H [id number] 11:59:00* Test Item Value Reference Range Interpretation Comments POTASSIUM (test code = K) 3.2 mmol/L 3.4-5.0 L [id number] 11:59:00* Test Item Value Reference Range Interpretation Comments MAGNESIUM (test code = MAG) mg/dL 1.6-2.3 THROMBOPLASTIN TIME [id number] 11:54:00* Test Item Value Reference Range Interpretation Comments THROMBOPLASTIN TIME PARTIAL (test code = PTT) 56.5 SECONDS 23.4-37. 0 H Therapeutic Range for Heparin EFFECTIVE 04/01/13 Heparin IU/mL aPTT Seconds0.3 64.30.7 88.8 IS PATIENT ON ANTICOAGULANTS ? YESLIST ANTICOAGULANT/ANTI PLT MEDICATION: remigio [id number] 09:01:00* Test Item Value Reference Range Interpretation Comments GLUBED (test code = GLUBED) 129 MG/DL 74-106 H THROMBOPLASTIN TIME [id number] 05:20:00* Test Item Value Reference Range Interpretation Comments THROMBOPLASTIN TIME PARTIAL (test code = PTT) 45.3 SECONDS 23.4-37. 0 H Therapeutic Range for Heparin EFFECTIVE 04/01/13 Heparin IU/mL aPTT Seconds0.3 64.30.7 88.8 IS PATIENT ON ANTICOAGULANTS ? YESLIST ANTICOAGULANT/ANTI PLT MEDICATION: remigio ProtocolCBC W/MANUAL [id number] 04:22:00* Test Item Value Reference Range Interpretation [...] Phleb: IF not already drawn todayBASIC METABOLIC [id number] 04:18:00* Test Item Value Reference Range Interpretation [...] stoppedComments to Phleb: IF not already drawn [id number] 04:18:00* Test Item Value Reference Range Interpretation Comments PHOSPHOROUS (test code = PHOS) 1.9 mg/dL 2.5-4.5 L Spec Comments: Order to be discontinued when PN is stoppedComments to Phleb: IF not already drawn xiiqbWRYASNWSS6118-03-05 04:18:00* Test Item Value Reference Range Interpretation Comments MAGNESIUM (test code = MAG) 1.4 mg/dL 1.6-2.3 L Spec Comments: Order to be discontinued when PN is stoppedComments to Phleb: IF not already drawn todayBASIC METABOLIC [id number] 04:14:00* Test Item Value Reference Range Interpretation [...] stoppedComments to Phleb: IF not already drawn [id number] 04:14:00* Test Item Value Reference Range Interpretation Comments PHOSPHOROUS (test code = PHOS) mg/dL 2.5-4.5 Spec Comments: Order to be discontinued when PN is stoppedComments to Phleb: IF not already drawn fbfsoRADHOOGOX8376-17-54 04:14:00* Test Item Value Reference Range Interpretation Comments MAGNESIUM (test code = MAG) mg/dL 1.6-2.3 Spec Comments: Order to be discontinued when PN is stoppedComments to Phleb: IF not already drawn todayCBC W/MANUAL [id number] 03:57:00* Test Item Value Reference Range Interpretation [...] Phleb: IF not already drawn todayCBC W/MANUAL [id number] 03:57:00* Test Item Value Reference Range Interpretation [...] Phleb: IF not already drawn todayCBC W/MANUAL [id number] 23:31:00* Test Item Value Reference Range Interpretation [...] LARGE PLATELETS SEEN NOR MAL THROMBOPLASTIN TIME [id number] 23:16:00* Test Item Value Reference Range Interpretation Comments THROMBOPLASTIN TIME PARTIAL (test code = PTT) 47.4 SECONDS 23.4-37. 0 H Therapeutic Range for Heparin EFFECTIVE 04/01/13 Heparin IU/mL aPTT Seconds0.3 64.30.7 88.8 IS PATIENT ON ANTICOAGULANTS ? YESLIST ANTICOAGULANT/ANTI PLT MEDICATION: Sukumar flood ProtocolCBC W/MANUAL [id number] 23:10:00* Test Item Value Reference Range Interpretation [...] code = LYMPH) % 20.5-45.5 CBC W/MANUAL [id number] 23:10:00* Test Item Value Reference Range Interpretation [...] LYMPHOCYTE (test code = LYMPH) % 20.5-45.5 [id number] 20:19:00* Test Item Value Reference Range Interpretation Comments GLUBED (test code = GLUBED) 146 MG/DL 74-106 H THROMBOPLASTIN TIME [id number] 17:23:00* Test Item Value Reference Range Interpretation Comments THROMBOPLASTIN TIME PARTIAL (test code = PTT) 25.1 SECONDS 23.4-37. 0 N Therapeutic Range for Heparin EFFECTIVE 04/01/13 Heparin IU/mL aPTT Seconds0.3 64.30.7 88.8 IS PATIENT ON ANTICOAGULANTS ? YESLIST ANTICOAGULANT/ANTI PLT MEDICATION: Sukumar flood ProtocolHEPARIN INDUCED [id number] 17:23:00* Test Item Value Reference Range Interpretation Comments HEPARIN INDUCED THROMBOCYTOPEN (test code = HIT (PF4 JAQUELINE)) NEGATIVE IS PATIENT ON ANTICOAGULANTS ? YESLIST ANTICOAGULANT/ANTI PLT MEDICATION: Sukumar flood [id number] 17:14:00* Test Item Value Reference Range Interpretation Comments GLUBED (test code = GLUBED) 113 MG/DL 74-106 H COLON SEGMENT RESEC. 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 CPT 96664 GROSS DESCRIPTION Received fresh labeled with the [...] margin; A2, parallel distal resection margin; A3-A7, applications sales representative se ctions of colon; A8, applications sales representative sections of skin. VT/DB/jv CONTINUED ON NEXT PAGE RUN DATE: [facility] PAGE 2 RUN TIME: 1710 Specimen Inquiry RUN US ER: INTERFACE -------- ----SPEC #: [id number] PATIENT: LEONOR VELIZ #[id number] (Continued) Signed SIGNATURE ON FILE Rodolfo Barraza MD 12/12/18 1710 END OF REPORT [id number] 16:01:00* Test Item Value Reference Range Interpretation Comments POTASSIUM (test code = K) 3.8 mmol/L 3.4-5.0 N [id number] 12:14:00* Test Item Value Reference Range Interpretation Comments GLUBED (test code = GLUBED) 106 MG/DL 74-106 N [id number] 12:05:00* Test Item Value Reference Range Interpretation Comments PHOSPHOROUS (test code = PHOS) 3.2 mg/dL 2.5-4.5 N LDTJVNWTF1992-58-88 10:15:00* Test Item Value Reference Range Interpretation Comments POTASSIUM (test code = K) 3.2 mmol/L 3.4-5.0 L [id number] 10:15:00* Test Item Value Reference Range Interpretation Comments MAGNESIUM (test code = MAG) mg/dL 1.6-2.3 [id number] 10:15:00* Test Item Value Reference Range Interpretation Comments POTASSIUM (test code = K) 3.2 mmol/L 3.4-5.0 L JBZCDYPFZ8626-04-49 10:15:00* Test Item Value Reference Range Interpretation Comments MAGNESIUM (test code = MAG) 2.1 mg/dL 1.6-2.3 N [id number] 09:29:00* Test Item Value Reference Range Interpretation Comments GLUBED (test code = GLUBED) 122 MG/DL 74-106 H CBC W/MANUAL [id number] 04:27:00* Test Item Value Reference Range Interpretation [...] Phleb: IF not already drawn todayBASIC METABOLIC [id number] 04:23:00* Test Item Value Reference Range Interpretation [...] Phleb: IF not already drawn todaySpec Comments: jrd9Gakd Comments: DAY 3PHOSPHOROUS 2018-12-12 04:23:00* Test Item Value Reference Range Interpretation Comments PHOSPHOROUS (test code = PHOS) <1.0 mg/dL 2.5-4.5 LL Critical Value reported [id number] READ BACK AND VERIFIEDby CFredLABFredNY, on 12/12/18, @ 0287. Spec Comments: Order to be discontinued when PN is stoppedComments to Phleb: IF not already drawn todaySpec Comments: ghn0Einv Comments: DAY 3TRIGLYCERIDES 2018-12-12 04:23:00* Test Item Value Reference Range Interpretation Comments TRIGLYCERIDES (test code = TRIG) 183 mg/dL TRIGLYCERIDES REFERENCE RANGE:Normal: <150 mg/dLBorderline High: 150-199 mg/dLHigh: 200-499 mg/dLVery High: >=500 mg/dL Spec Comments: Order to be discontinued when PN is stoppedComments to Phleb: IF not already drawn todaySpec Comments: hav5Thgh Comments: DAY 3MAGNESIUM 2018-12-12 04:23:00* Test Item Value Reference Range Interpretation Comments MAGNESIUM (test code = MAG) 1.5 mg/dL 1.6-2.3 L Spec Comments: Order to be discontinued when PN is stoppedComments to Phleb: IF not already drawn todaySpec Comments: ylf0Fcdb Comments: DAY 3PREALBUMIN 2018-12-12 04:23:00* Test Item Value Reference Range Interpretation Comments PREALBUMIN (test code = PREALB) 19.30 mg/dL 17.6-36.0 N Spec Comments: Order to be discontinued when PN is stoppedComments to Phleb: IF not already drawn todaySpec Comments: cpc4Uixm Comments: DAY 3PROTHROMBIN TIME 2018-12-12 04:19:00* Test [...] ANTICOAGULANT/ANTI PLT MEDICATION: Sukumar remigio ProtocolTHROMBOPLASTIN TIME [id number] 04:19:00* Test Item Value Reference Range Interpretation Comments THROMBOPLASTIN TIME PARTIAL (test code = PTT) 56.7 SECONDS 23.4-37. 0 H Therapeutic Range for Heparin EFFECTIVE 04/01/13 Heparin IU/mL aPTT Seconds0.3 64.30.7 88.8 IS PATIENT ON ANTICOAGULANTS ? YESLIST ANTICOAGULANT/ANTI PLT MEDICATION: Sukumar remigio ProtocolBASIC METABOLIC [id number] 04:16:00* Test Item Value Reference Range Interpretation [...] Phleb: IF not already drawn todaySpec Comments: hap4Lezw Comments: DAY 3PHOSPHOROUS 2018-12-12 04:16:00* Test Item Value Reference Range Interpretation Comments PHOSPHOROUS (test code = PHOS) <1.0 mg/dL 2.5-4.5 LL Critical Value reported [id number] READ BACK AND VERIFIEDby , on 12/12/18, @ 4662. Spec Comments: Order to be discontinued when PN is stoppedComments to Phleb: IF not already drawn todaySpec Comments: jhg0Kixd Comments: DAY 3TRIGLYCERIDES 2018-12-12 04:16:00* Test Item Value Reference Range Interpretation Comments TRIGLYCERIDES (test code = TRIG) 183 mg/dL TRIGLYCERIDES REFERENCE RANGE:Normal: <150 mg/dLBorderline High: 150-199 mg/dLHigh: 200-499 mg/dLVery High: >=500 mg/dL Spec Comments: Order to be discontinued when PN is stoppedComments to Phleb: IF not already drawn todaySpec Comments: rjg9Kokq Comments: DAY 3MAGNESIUM 2018-12-12 04:16:00* Test Item Value Reference Range Interpretation Comments MAGNESIUM (test code = MAG) 1.5 mg/dL 1.6-2.3 L Spec Comments: Order to be discontinued when PN is stoppedComments to Phleb: IF not already drawn todaySpec Comments: jnj0Fqai Comments: DAY 3PREALBUMIN 2018-12-12 04:16:00* Test Item Value Reference Range Interpretation Comments PREALBUMIN (test code = PREALB) mg/dL 17.6-36.0 Spec Comments: Order to be discontinued when PN is stoppedComments to Phleb: IF not already drawn todaySpec Comments: gyx6Qops Comments: DAY 3CBC W/MANUAL DIFF 2018-12-12 04:05:00* [...] stoppedComments to Phleb: IF not [facility] W/MANUAL [id number] 04:05:00* Test Item Value Reference Range Interpretation [...] Phleb: IF not already drawn todayTHROMBOPLASTIN TIME [id number] 23:49:00* Test Item Value Reference Range Interpretation Comments THROMBOPLASTIN TIME PARTIAL (test code = PTT) 55.9 SECONDS 23.4-37. 0 H Therapeutic Range for Heparin EFFECTIVE 04/01/13 Heparin IU/mL aPTT Seconds0.3 64.30.7 88.8 IS PATIENT ON ANTICOAGULANTS ? YESLIST ANTICOAGULANT/ANTI PLT MEDICATION: Sukumar flood [id number] 23:40:00* Test Item Value Reference Range Interpretation Comments GLUBED (test code = GLUBED) 138 MG/DL 74-106 H YCLSHTCIJ8532-10-23 21:37:00* Test Item Value Reference Range Interpretation Comments POTASSIUM (test code = K) 3.3 mmol/L 3.4-5.0 L THROMBOPLASTIN TIME [id number] 17:55:00* Test Item Value Reference Range Interpretation Comments THROMBOPLASTIN TIME PARTIAL (test code = PTT) 47.2 SECONDS 23.4-37. 0 H Therapeutic Range for Heparin EFFECTIVE 04/01/13 Heparin IU/mL aPTT Seconds0.3 64.30.7 88.8 IS PATIENT ON ANTICOAGULANTS ? YESLIST ANTICOAGULANT/ANTI PLT MEDICATION: [facility] [id number] 16:16:00* Test Item Value Reference Range Interpretation Comments UR SODIUM RANDOM (test code = KEELY) 122 mmol/L 30-90 H 24hr: 40-220 mmol/dayRandom: 30-90 mmol/L SEND TO [facility] POTASSIUM [id number] 16:16:00* Test Item Value Reference Range Interpretation Comments UR POTASSIUM RANDOM (test code = KU) 7 mmol/L 24hr: 25.0-125 mmol/day SEND TO [facility] [id number] 16:16:00* Test Item Value Reference Range Interpretation Comments UR CHLORIDE RANDOM (test code = CLU) 102 MMOL/L ~~~~~~~~~~~~~~~~~~~~~~~~~~~~~~~~~~~~~~~~~~~~~~~~~~~~~~~~~~~This test has been performed on a fluid type that has nopublished normal reference ranges. Please evaluate theseresults on an individual basis. ~~~~~~~~~~~~~~~~~~~~~~~~~~~~~~~~~~~~~~~~~~~~~~~~~~~~~~~~~~~ SEND TO [facility] MICROALBUMIN/CREAT [id number] 16:16:00* Test Item Value Reference Range Interpretation [...] mg/g cre 0.0 -30.0 H SEND TO [facility] OSMOLALITY [id number] 16:16:00* Test Item Value Reference Range Interpretation Comments UR OSMOLALITY RANDOM (test code = OSMOU) 320 mOsm/kg 300-1200 N SEND TO [id number] 14:33:00* Test Item Value Reference Range Interpretation Comments POTASSIUM (test code = K) 3.1 mmol/L 3.4-5.0 L [id number] 14:33:00* Test Item Value Reference Range Interpretation Comments MAGNESIUM (test code = MAG) mg/dL 1.6-2.3 [id number] 14:33:00* Test Item Value Reference Range Interpretation Comments POTASSIUM (test code = K) 3.1 mmol/L 3.4-5.0 L [id number] 14:33:00* Test Item Value Reference Range Interpretation Comments MAGNESIUM (test code = MAG) 2.0 mg/dL 1.6-2.3 N PROTHROMBIN [id number] 12:07:00* Test Item Value Reference Range Interpretation [...] PLT MEDICATION: [facility] HEPARIN PROTOCOLTHROMBOPLASTIN TIME [id number] 12:07:00* Test Item Value Reference Range Interpretation Comments THROMBOPLASTIN TIME PARTIAL (test code = PTT) 23.8 SECONDS 23.4-37. 0 N Therapeutic Range for Heparin EFFECTIVE 04/01/13 Heparin IU/mL aPTT Seconds0.3 64.30.7 88.8 IS PATIENT ON ANTICOAGULANTS ? YESLIST ANTICOAGULANT/ANTI PLT MEDICATION: [facility] HEPARIN [id number] 10:38:00* Test Item Value Reference Range Interpretation Comments GLUBED (test code = GLUBED) 152 MG/DL 74-106 H [id number] 10:38:00* Test Item Value Reference Range Interpretation Comments GLUBED (test code = GLUBED) 171 MG/DL 74-106 H POC ARTERIAL BLOOD [id number] 10:28:00* Test Item Value Reference Range Interpretation Comments POC ARTERIAL BLOOD GAS PH (test code = POCPHA) 7.482 7.35-7. 45 H POC ARTERIAL BLOOD GAS PCO2 (test code = DIRWKV7H) 27.0 mmHg 35- 45 LL POC ARTERIAL BLOOD GAS PO2 (test code = KMXNU0H) 168 mmHg 80-90 H POC HCO3 ARTERIAL (test code = OCBYXK4H) 20.2 mmol/L 22.0-24.0 L POC BASE EXCESS [...] code = ALLENDonna) Pass - SP FLUORO [id number] 09:05:00 FAX: Kofi Briones [phone] [place]: St: ADM Name: LEONOR JOHNSON [facility] IR : [birth year] Age/S: 68/F [address] Unit #: [id number] Loc: C.ICU0 [place] [address] Phys: Baljinder Pfeiffer MD Acct: [id number] Dis Date: Status: ADM IN PHONE #: Exam Date: 12/10/2018 6671 FAX #: Reason: EXAMS: CPT CODE: [id number] SP FLUORO NDL 69589 PROCEDURE: - SP FLUORO NDL 1. Ultrasound guidance cannulation of the common femoral vein. Performance and interpretation. 2. Right ilio-cavogram. 3. IVC filter placement, Bard [place], Retrieval time up to 67 days CPT code: 22191 INDICATION: DVT LOCATION CO DE: C3 COMPARISON: [...] by placement of a 0.035 guidewire. A 6-Belarusian sheath was placed over t he guidewire [...] 1 Signed Report (CONTINUED) FAX: Kofi Briones [phone] [place]: St: ADM Name: LEONOR VELIZ [facility] IR : 1950 Age/S: 68/F [address] Unit #: [id number] Loc: C.ICU0 [place] [address] Phys: Baljinder Pfeiffer MD Acct: [id number] Dis Date: Status: ADM IN PHONE #: Exam Date: 12/10/2018 1258 FAX #: Reason: EXAMS: CPT CODE: [id number] SP FLUORO NDL 64158 <Continued> No evidence of filling defect within the confluence of the common iliac vein and inferior vena cava. Satisfactory placement of IVC filter. Impression: 1. Status post IVC filter placement. at 0905 Reported and signed by: Baljinder Pfeiffer M.D. CC: Kofi Bean MD Technologist: JANI HAWKscrd Date/Time/By: 12/11/2018 (0905) : By: Vinny PAGE 2 Signed Report FAX: Kofi Briones [phone] [place]: St: ADM Name: LEONOR VELIZ [facility] : 1950 Age/S: 68/F [address] Unit #: [id number] Loc: C.ICU0 [place] [address] Phys: Baljinder Pfeiffer MD Acct: [id number] Dis Date: Status: ADM IN PHONE #: Exam Date: 12/10/2018 1253 FAX #: Reason: EXAMS: CPT CODE: [id number] SP FLUORO NDL 48428 <Continued> Orig Print D/T: S: 12/11/2018 (0908) PAGE 3 Signed Report UR SODIUM [id number] 05:36:00* Test Item Value Reference Range Interpretation Comments UR SODIUM RANDOM (test code = KEELY) 122 mmol/L 30-90 H 24hr: 40-220 mmol/dayRandom: 30-90 mmol/L UR POTASSIUM [id number] 05:36:00* Test Item Value Reference Range Interpretation Comments UR POTASSIUM RANDOM (test code = KU) 7 mmol/L 24hr: 25.0-125 mmol/day UR CHLORIDE [id number] 05:36:00* Test Item Value Reference Range Interpretation Comments UR CHLORIDE RANDOM (test code = CLU) MMOL/L UR MICROALBUMIN/CREAT [id number] 05:36:00* Test Item Value Reference Range Interpretation [...] mg/g cre 0.0 -30.0 H UR OSMOLALITY [id number] 05:36:00* Test Item Value Reference Range Interpretation Comments UR OSMOLALITY RANDOM (test code = OSMOU) 320 mOsm/kg 300-1200 N POC ARTERIAL BLOOD [id number] 05:08:00* Test Item Value Reference Range Interpretation Comments POC ARTERIAL BLOOD GAS PH (test code = POCPHA) 7.451 7.35-7. 45 H POC ARTERIAL BLOOD GAS PCO2 (test code = SKGJRK7R) 29.0 mmHg 35- 45 LL POC ARTERIAL BLOOD GAS PO2 (test code = RXYPE3T) 54 mmHg 80-90 L POC HCO3 ARTERIAL (test code = QRHPVD8Z) 20.2 mmol/L 22.0-24.0 L POC BASE EXCESS [...] (test code = ALLENS) N/A UR SODIUM [id number] 04:54:00* Test Item Value Reference Range Interpretation Comments UR SODIUM RANDOM (test code = KEELY) 122 mmol/L 30-90 H 24hr: 40-220 mmol/dayRandom: 30-90 mmol/L UR POTASSIUM [id number] 04:54:00* Test Item Value Reference Range Interpretation Comments UR POTASSIUM RANDOM (test code = KU) 7 mmol/L 24hr: 25.0-125 mmol/day UR CHLORIDE [id number] 04:54:00* Test Item Value Reference Range Interpretation Comments UR CHLORIDE RANDOM (test code = CLU) MMOL/L UR MICROALBUMIN/CREAT [id number] 04:54:00* Test Item Value Reference Range Interpretation [...] mg/g cre 0.0 -30.0 H UR OSMOLALITY [id number] 04:54:00* Test Item Value Reference Range Interpretation Comments UR OSMOLALITY RANDOM (test code = OSMOU) mOsm/kg 300-1200 - XR CHEST 1 [id number] 04:14:00 FAX: Alfred Martinez [phone] [place]: St: ADM FAX: Kofi Briones [phone] Name: LEONOR VELIZ [facility] : 1950 Age/S: 68/F [address] Unit #: [id number] Loc: C.ICU0 [place] [address] Phys: Alfred Ragsdale NP Acct: [id number] Dis Date: Status: ADM IN PHONE #: [phone] Exam Date: 12/11/2018 0409 FAX #: [phone] Reason: vent EXAMS: CPT CODE: [id number] XR CHEST 1 V 00841 Exam: Chest portable erect Location: F6 History: vent Comparison: 12/10/2018 Findings: No change has occurred in the aeration of the lungs. The heart size is unchanged. The mediastinal silhouette is unremarkable. The bony thorax is intact. Lines and tubes remain in place. Impression: Stable chest/no change. at 3621 Reported and signed by: Ismael Contreras CC: Alfred Ragsdale DIRECTOR OF [employer]; Kofi Bean MD Technologist: RT Millie Nath) Trnrosard Date/Time/By: 12/11/2018 (0414) : By: Genia PAGE 1 Signed Report FAX: Alfred Martinez [phone] [place]: St: ADM FAX: Kofi Briones [phone] Name: LEONOR VELIZN [facility] : 1950 Age/S: 68/F [address] Unit #: [id number] Loc: C.ICU0 [place] [address] Phys: JnJayara Vásquez DIRECTOR OF [employer] Acct: [id number] Dis Date: Status: ADM IN PHONE #: [phone] Exam Date: 12/11/2018408 FAX #: [phone] Reason: vent EXAMS: CPT CODE: [id number] XR CHEST 1 V 99199 < Continued> Orig Print D/T: S: 12/11/2018 (0418) PAGE 2 Signed Report BASIC METABOLIC [id number] 04:02:00* Test Item Value Reference Range Interpretation [...] stoppedComments to Phleb: IF not already drawn [id number] 04:02:00* Test Item Value Reference Range Interpretation Comments PHOSPHOROUS (test code = PHOS) 3.4 mg/dL 2.5-4.5 N Spec Comments: Order to be discontinued when PN is stoppedComments to Phleb: IF not already drawn [id number] 04:02:00* Test Item Value Reference Range Interpretation Comments MAGNESIUM (test code = MAG) 1.8 mg/dL 1.6-2.3 N Spec Comments: Order to be discontinued when PN is stoppedComments to Phleb: IF not already [facility] W/[facility]O [id number] 03:55:00* Test Item Value Reference Range Interpretation [...] stoppedComments to Phleb: IF not already drawn [id number] 00:15:00* Test Item Value Reference Range Interpretation Comments GLUBED (test code = GLUBED) 157 MG/DL 74-106 H [id number] 20:23:00* Test Item Value Reference Range Interpretation Comments GLUBED (test code = GLUBED) 106 MG/DL 74-106 N POC ARTERIAL BLOOD [id number] 16:14:00* Test Item Value Reference Range Interpretation Comments POC ARTERIAL BLOOD GAS PH (test code = POCPHA) 7.504 7.35-7. 45 HH POC ARTERIAL BLOOD GAS PCO2 (test code = MSIZTU3P) 25.8 mmHg 35- 45 LL POC ARTERIAL BLOOD GAS PO2 (test code = AOEMQ4W) 74 mmHg 80-90 L POC HCO3 ARTERIAL (test code = ZDILCA4Q) 20.3 mmol/L 22.0-24.0 L POC BASE EXCESS [...] ALLENS TEST (test code = ALLENS) Pass [id number] 15:49:00* Test Item Value Reference Range Interpretation Comments GLUBED (test code = GLUBED) 110 MG/DL 74-106 H POC ARTERIAL BLOOD [id number] 15:34:00* Test Item Value Reference Range Interpretation Comments POC ARTERIAL BLOOD GAS PH (test code = POCPHA) 7.497 7.35-7. 45 H POC ARTERIAL BLOOD GAS PCO2 (test code = WJOZWZ0C) 25.5 mmHg 35- 45 LL POC ARTERIAL BLOOD GAS PO2 (test code = PCVZB6A) 61 mmHg 80-90 L POC HCO3 ARTERIAL (test code = RYBICY8N) 19.8 mmol/L 22.0-24.0 L POC BASE EXCESS [...] ALLENS TEST (test code = ALLENS) Pass [id number] 07:56:00* Test Item Value Reference Range Interpretation Comments GLUBED (test code = GLUBED) 129 MG/DL 74-106 H POC ARTERIAL BLOOD [id number] 06:51:00* Test Item Value Reference Range Interpretation Comments POC ARTERIAL BLOOD GAS PH (test code = POCPHA) 7.488 7.35-7. 45 H POC ARTERIAL BLOOD GAS PCO2 (test code = DSBZAW0W) 22.6 mmHg 35- 45 LL POC ARTERIAL BLOOD GAS PO2 (test code = NAOSL1I) 95 mmHg 80-90 H POC HCO3 ARTERIAL (test code = VRPRJH2E) 17.1 mmol/L 22.0-24.0 L POC BASE EXCESS [...] (test code = ALLENS) N/A CBC W/MANUAL [id number] 06:03:00* Test Item Value Reference Range Interpretation [...] PLTMORPH) NORMAL NORMAL - XR CHEST 1 [id number] 04:39:00 FAX: Alfred Martinez [phone] [place]: St: [facility] FAX: Kofi Briones [phone] Name: LEONOR VELIZ [facility] : 1950 Age/S: 68/F [address] Unit #: [id number] Loc: CherylICU0 [place] [address] Phys: Alfred Ragsdale [employer]OR [employer] Acct: [id number] Dis Date: Status: ADM IN PHONE #: [phone] Exam Date: 12/10/2018 0432 FAX #: [phone] Reason: ventilator EXAMS: CPT CODE: [id number] XR CHEST 1 V 08842 EXAM: - XR CHEST 1 V HISTORY: [...] by: Marcelo Li MD CC: Alfred Ragsdale DIRECTOR [employer]; Kofi Bean MD Technologist: MONIQUE MCCLURE RT (R) Trnscrd Date/Time/By: 12/10/2018 (0439) : By: GeniaMKM4 PAGE 1 Signed Report FAX: Alfred Martinez [phone] [place]: St: ADM FAX: Kofi Briones [phone] Name: LEONOR JOHNSON [facility] : [birth year] Age/S: 68/F [address] Unit #: [id number] Loc: CherylICU0 [place] [address] Phys: Alfred Ragsdale NP Acct: [id number] Dis Date: Status: ADM IN PHONE #: [phone] Exam Date: 12/10/2018 0432 FAX #: [phone] Reason: ventilator EXAMS: CPT CODE: [id number] XR CHEST 1 V 24888 <Continued> Orig Print D/T: S: 12/10/2018 (0442) PAGE 2 Signed Report VANCOMYCIN 2018-12-10 04:28:00* Test Item Value Reference Range Interpretation Comments VANCOMYCIN (test code = VANCO) 12.72 ug/mL ~~~~~~~~~~~~~~~~~~~~~~~~~~~~~~~~~~~~~~~~~~~THERAPEUTIC REFERENCE RANGE NOT ESTABLISHEDWHEN NOT DRAWN PEAK OR TROUGH LEVEL.~~~~~~~~~~~~~~~~~~~~~~~~~~~~~~~~~~~~~~~~~~~ POC ARTERIAL BLOOD [id number] 04:25:00* Test Item Value Reference Range Interpretation Comments POC ARTERIAL BLOOD GAS PH (test code = POCPHA) 7.480 7.35-7. 45 H POC ARTERIAL BLOOD GAS PCO2 (test code = VCEKBQ9E) 23.6 mmHg 35- 45 LL POC ARTERIAL BLOOD GAS PO2 (test code = OAVWY5U) 203 mmHg 80-90 H POC HCO3 ARTERIAL (test code = GGHEDT9C) 17.6 mmol/L 22.0-24.0 L POC BASE EXCESS [...] (test code = ALLENS) N/A BASIC METABOLIC [id number] 04:24:00* Test Item Value Reference Range Interpretation [...] CA) 7.6 mg/dL 8.4-10.2 L CBC W/MANUAL [id number] 04:08:00* Test Item Value Reference Range Interpretation [...] code = LYMPH) % 20.5-45.5 CBC W/MANUAL [id number] 04:08:00* Test Item Value Reference Range Interpretation [...] = LYMPH) % 20.5-45.5 POC ARTERIAL BLOOD [id number] 22:41:00* Test Item Value Reference Range Interpretation Comments POC ARTERIAL BLOOD GAS PH (test code = POCPHA) 7.321 7.35-7. 45 L POC ARTERIAL BLOOD GAS PCO2 (test code = UWIVPM6R) 20.7 mmHg 35- 45 LL POC ARTERIAL BLOOD GAS PO2 (test code = LMETJ0E) 96 mmHg 80-90 H POC HCO3 ARTERIAL (test code = ORAYPZ0W) 10.7 mmol/L 22.0-24.0 L POC BASE EXCESS [...] ALLENS TEST (test code = ALLENS) N/A [id number] 21:46:00* Test Item Value Reference Range Interpretation Comments GLUBED (test code = GLUBED) 240 MG/DL 74-106 H POC VENOUS BLOOD [id number] 20:45:00* Test Item Value Reference Range Interpretation Comments SODIUM (POC) (test code = NA/ABG) 141 mmol/L 137-145 N POTASSIUM (POC) (test code = K/ABG) 3.5 MMOL/L 3.4-5.0 N IONIZED CALCIUM (test code = CAIABG) 0.78 mmol/L 1.12-1.32 L POC VENOUS BLOOD GAS PH (test code = POCPHV) 7.137 7.35-7.45 LL POC VENOUS BLOOD GAS PCO2 (test code = QXQUNI4G) 41.2 mmHg 35-45 N POC VENOUS BLOOD GAS PO2 (test code = PHALE3C) 258 mmHg 80-90 H POC TCO2 VENOUS (test code = SSVWFO4X) 15 MMOL/L 22-30 L POC HCO3 VENOUS (test code = YWWXSV0G) 13.9 mmol/L 22-24 L POC BASE EXCESS VENOUS (test code = POCBEV) -15 mmol/L -2-2 L POC O2 SATURATION VENOUS (test code = TALF1DI) 100 % 95-98 H [id number] 17:34:00* Test Item Value Reference Range Interpretation Comments GLUBED (test code = GLUBED) 80 MG/DL 74-106 N [id number] 17:26:00* Test Item Value Reference Range Interpretation Comments GLUBED (test code = GLUBED) 82 MG/DL 74-106 N [id number] 17:26:00* Test Item Value Reference Range Interpretation Comments GLUBED (test code = GLUBED) 61 MG/DL 74-106 L - CT ABD PELVIS W/[id number] 16:13:00 FAX: Don Burt [phone] [place]: [facility]: [facility] FAX: Kofi Briones [phone] Name: LEONOR VELIZ [facility] [place] : 1950 Age/S: 68/F [address] Unit: [id number] Loc: C.ICU0 [place] [address] Phys: Don Molina MD Acct: [id number] Dis Date: Status: ADM IN PHONE #: [phone] Exam Date: 12/09/2018 1550 FAX #: [phone] Reason: colitis EXAMS: CPT CODE: [id number] CT ABD PELVIS W/CONT 22801 C3 TIME OF STUDY: 12/09/2018 1:04 PM [...] 1 Signed Report (CONTINUED) FAX: Don Burt [phone] [place]: St: ADM FAX: Michael AlexmilenaKofi Schwab [phone] Name: LEONOR LANCASTER [facility] : 1950 Age/S: 68/F [address] Unit: [id number] c: C.ICU[address] [place] [address] Phys: Dno Molina MD Acct: [id number] Dis Date: Status: ADM IN PHONE #: [phone] Exam Date: 12/09/2018 1550 FAX #: [phone] Aditi son: colitis EXAMS: CPT CODE: [id number] CT ABD PELVIS W/CONT 47061 <Continued> CT Pelvis: The ureters and bladder [...] PURPOSES ONLY RESULT CODE : CVR at 1158 * * Reported and signed by: Savage Rodriguez MD CC: Don Molina MD; Kofi Bean MD Technologist: MONIQUE Verde Trnscrd Dt/Tm: 12/09/2018 (5777) t.SDR.SI1 Orig Print D/T: S: 12/09/2018 (1616 PAGE 2 Signed Report UA RFLX MICR CULT IF [id number] 14:58:00* Test Item Value Reference Range Interpretation [...] Culture: Sev Sepsis No Oth SourceCBC W/MANUAL [id number] 14:07:00* Test Item Value Reference Range Interpretation [...] code = PLTMORPH) NORMAL NORMAL BASIC METABOLIC [id number] 13:25:00* Test Item Value Reference Range Interpretation [...] CA) 6.3 mg/dL 8.4-10.2 L CBC W/MANUAL [id number] 13:17:00* Test Item Value Reference Range Interpretation [...] code = LYMPH) % 20.5-45.5 CBC W/MANUAL [id number] 13:17:00* Test Item Value Reference Range Interpretation [...] LYMPHOCYTE (test code = LYMPH) % 20.5-45.5 [id number] 10:18:00* Test Item Value Reference Range Interpretation Comments GLUBED (test code = GLUBED) 116 MG/DL 74-106 H [id number] 10:18:00* Test Item Value Reference Range Interpretation Comments GLUBED (test code = GLUBED) 59 MG/DL 74-106 L - XR CHEST 1 [id number] 10:10:00 FAX: Kofi Briones [phone] [place]: St: ADM FAX: Mary Monsalve NP [phone] Name: KERENLEONOR SYLVESTER [facility] : 1950 Age/S: 68/F [address] Unit #: [id number] Loc: C.ICU0 [place] [address] Phys: Mary Beltran NP Acct: [id number] Dis Date: Status: ADM IN PHONE #: [phone] Exam Date: 12/09/2018 09 FAX #: [phone] Reason: right IJ central line placement confirmation EXAMS: CPT CODE: [id number] XR CHEST 1 V 47764 LOCATION: T18 EXAM: CHEST 1 VIEW INDICATION: [...] Bean MD; Mary Beltran NP Technologist: SANTY Donovanrd Date/Time/By: 12/09/2018 (1010) : By: GeniaJP19 PAGE 1 Signed Report FAX: Kofi Briones [phone] [place]: St: ADM FAX: Mary Monsalve NP [phone] Name: LEONOR VELIZ [facility] franny : 1950 Age/S: 68/F [address] Unit #: [id number] Loc: .[address] [place] [address] Phys: Mary Beltran NP Acct: [id number] Dis Date: Status: ADM IN PHONE #: [phone] Exam Date: 12/09/2018954 FAX #: [phone] Reason: right IJ central line placement confirmation EXAMS: CPT COD E: [id number] XR CHEST 1 V 59615 <Continued> Orig Print D/T: S: 12/09/2018 (5980) PAGE 2 Signed Report LACTIC [id number] 09:24:00* Test Item Value Reference Range Interpretation Comments LACTIC ACID (test code = LACT) 1.4 mmol/L 0.7-2.0 N CBC W/MANUAL [id number] 07:59:00* Test Item Value Reference Range Interpretation [...] NOR MAL - CT ABD PELVIS W/O [id number] 07:02:00 FAX: Alfred Martinez [phone] [place]: St: ADM FAX: Kofi Briones [phone] Name: LEONOR VELIZ [facility] : 1950 Age/S: 68/F [address] Unit: [id number] Loc: C.ICU0 [place] [address] Phys: Alfred Ragsdale DIRECTOR [employer] Acct: [id number] Dis Date: Status: ADM IN PHONE #: [phone] Exam Date: 12/09/2018 0645 FAX #: [phone] Reason: ABD PAIN, R/O PANCREATITIS EXAMS: CPT CODE: [id number] CT ABD PELVIS W/O CONT 11782 EXAM: - CT ABD PELVIS W/O CONT [...] 1 Signed Report (CONTINUED) FAX: Alfred Martinez N [phone] [place]: St: ADM FAX: Michael BeanKofiliz Schwab [phone] [facility] 1950 Age/S: 68/F [address] Unit: [id number] Loc: C.ICU0 [place] [address] Phys: Alfred Ragsdale DIRECTOR [employer] Acct: [id number] Dis Date: Status: ADM IN PHONE #: [phone] Exam Date: 12/09/2018 0645 FAX #: [phone] Reason: ABD PAIN, R/O PANCREA TITIS EXAMS: CPT CODE: [id number] CT ABD PELVIS W/O CONT 61322 <Continued> Vascular: Atherosclerotic calcifications are seen within [...] by: Catrachito Liu MD CC: Alfred Ragsdale DIRECTOR [employer]; Kofi Bean MD Technologist: MISBAH TAPIA Trnscrd Dt/Tm: 12/09/2018 (0702) tCECILLER.CB5 Orig Print D/T: S: 12/09/2018 (8605 PAGE 2 Signed Report - CT HEAD/BRAIN W/O [id number] 06:58:00 FAX: Alfred Martinez [phone] [place]: St: ADM FAX: Kofi Briones [phone] Name: LEONOR VELIZ [facility] [place] : 1950 Age/S: 68/F [address] Unit: [id number] Loc: C.ICU0 [place] [address] Phys: Alfred Ragsdale DIRECTOR [employer] Acct: [id number] Dis Date: Status: ADM IN PHONE #: [phone] Exam Date: 12/09/2018 0645 FAX #: [phone] Reason: AMS EXAMS: CPT CODE: [id number] CT HEAD/BRAIN W/O CONT 93327 EXAM: - CT HEAD/BRAIN W/O CONT Location [...] Signed Report (CONT INUED) FAX: Alfred Martinez N [phone] [place]: St: ADM FA X: Kofi Briones [phone] Name: LEONRO VELIZ [facility] : 1950 Age/S: 68/F [address] Unit: [id number] Loc: C.ICU0 [place] [address] Phys: Alfred Ragsdale NP Acct: [id number] Dis Date: Status: ADM IN PHONE #: [phone] Exam Date: 2018 FAX #: [phone] Reason: AMS EXAMS: CPT CODE: [id number] CT HEAD/BRAIN W/O CONT 70 450 <Continued> 2. 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 3. Left mastoid effusion. at 0658 Reported and signed by: Catrachito Liu MD CC: Alfred Ragsdale DIRECTOR [employer]; Kofi Bean MD Technologist: MISBAH TAPIA Trnscrd Dt/Tm: 12/09/2018 (0658) GeniaCB5 Orig Print D/T: S: 12/09/2018 (0701 PAGE 2 Signed Report COMPREHENSIVE METABOLIC [id number] 06:49:00* Test Item Value Reference Range Interpretation [...] CHD)40-59mg/dL: Borderline Risk LDL Cholesterol<100mg/dL: Desirable LDL-C phajphbuhxkqg556-671he/dL: Borderline High Risk LDL-C dtkfiwtrucldq367-265qy/dL: High risk LDL-C concentration HDL-LDL Cholesterol is affected by a number of factors suchas smoking, age and sex.~~~~~~~~~~~~~~~~~~~~~~~~~~~~~~~~~~~~~~~~~~~~~~~~~~~~~~~~~~~~ [id number] 06:49:00* Test Item Value Reference Range Interpretation Comments PHOSPHOROUS (test code = PHOS) 6.1 mg/dL 2.5-4.5 H LACTIC DEHYDROGENASE(LDH)2018-12-09 06:49:00* Test Item Value Reference Range Interpretation Comments LACTIC DEHYDROGENASE(LDH) (test code = LDH) 586 U/L 313-618 N Please be advised of the updated reference ranges for the new Chemistry instrumentation. [id number] 06:49:00* Test Item Value Reference Range Interpretation Comments AMYLASE (test code = MELVINA) 437 U/L 30-110 H [id number] 06:49:00* Test Item Value Reference Range Interpretation Comments LIPASE (test code = LIP) 35 U/L 23-300 N [id number] 06:49:00* Test Item Value Reference Range Interpretation Comments MAGNESIUM (test code = MAG) 2.3 mg/dL 1.6-2.3 N THYROID STIMULATING [id number] 06:49:00* Test Item Value Reference Range Interpretation Comments THYROID STIMULATING HORMONE (test code = TSH) 11.800 mIU/L 0.465-4. 68 H A positive bias may occur for patients taking BIOTINsupplements. NT PRO-BRAIN NATRIURETIC [id number] 06:49:00* Test Item Value Reference Range Interpretation Comments NT PRO-BRAIN NATRIURETIC PEPTI (test code = PROBNP) 57743 pg/mL 0- 299 H ~~~~~~~~~~~~~~~~~~~~~~~~~~~~~~~~~~~~~~~~~~~~~~~~~~~~~~~~~~~~NT PRO-BNP IS THE REPLACEMENT ASSAY FOR BNP.~~~~~~~~~~~~~~~~~~~~~~~~~~~~~~~~~~~~~~~~~~~~~~~~~~~~~~~~~~~~RULE-IN CUT POINTS FOR PATIENTS WITH SUSPECTED ACUTECONGESTIVE HEART FAILURE:<50 yrs old: >450 pg/mL50-75 yrs old: >900 pg/mL>75 yrs old: >1800 pg/mLA positive bias may occur on patients taking BIOTINsupplements. CARDIAC ENZYMES [id number] 06:49:00* Test Item Value Reference Range Interpretation [...] PROCAL) 99.87 NG/ML HH Critical Value reported [facility] Name:[id number] Last Name:RESULTS READ BACK AND VERIFIEDby ROSI, on 12/09/18, @ 06. Procalcitonin (PCT) Normal Value: <0.05 NG/ML <0.5 NG/ML - low risk of severe sepsis and/or septic shock>2.0 NG/ML - high risk of severe sepsis and/or septic shock PCT concentrations between 0.5 and 2.0 NG/ML should beinterpreted taking into account the patient's history.It is recommended to retest PCT within 6-24 hours if anyconcentrations between 0.5-2.0 NG/ML are obtained. COMPREHENSIVE METABOLIC [id number] 06:35:00* Test Item Value Reference Range Interpretation [...] CHD)40-59mg/dL: Borderline Risk LDL Cholesterol<100mg/dL: Desirable LDL-C usjsakgesatbh857-016bz/dL: Borderline High Risk LDL-C tuqwsouvfqfgi872-962gy/dL: High risk LDL-C concentration HDL-LDL Cholesterol is affected by a number of factors suchas smoking, age and sex.~~~~~~~~~~~~~~~~~~~~~~~~~~~~~~~~~~~~~~~~~~~~~~~~~~~~~~~~~~~~ [id number] 06:35:00* Test Item Value Reference Range Interpretation Comments PHOSPHOROUS (test code = PHOS) 6.1 mg/dL 2.5-4.5 H LACTIC DEHYDROGENASE(LDH)2018-12-09 06:35:00* Test Item Value Reference Range Interpretation Comments LACTIC DEHYDROGENASE(LDH) (test code = LDH) 586 U/L 313-618 N Please be advised of the updated reference ranges for the new Chemistry instrumentation. [id number] 06:35:00* Test Item Value Reference Range Interpretation Comments AMYLASE (test code = MELVINA) 437 U/L 30-110 H [id number] 06:35:00* Test Item Value Reference Range Interpretation Comments LIPASE (test code = LIP) 35 U/L 23-300 N [id number] 06:35:00* Test Item Value Reference Range Interpretation Comments MAGNESIUM (test code = MAG) 2.3 mg/dL 1.6-2.3 N THYROID STIMULATING [id number] 06:35:00* Test Item Value Reference Range Interpretation Comments THYROID STIMULATING HORMONE (test code = TSH) mIU/L 0.465-4. 68 NT PRO-BRAIN NATRIURETIC [id number] 06:35:00* Test Item Value Reference Range Interpretation Comments NT PRO-BRAIN NATRIURETIC PEPTI (test code = PROBNP) 16238 pg/mL 0- 299 H ~~~~~~~~~~~~~~~~~~~~~~~~~~~~~~~~~~~~~~~~~~~~~~~~~~~~~~~~~~~~NT PRO-BNP IS THE REPLACEMENT ASSAY FOR BNP.~~~~~~~~~~~~~~~~~~~~~~~~~~~~~~~~~~~~~~~~~~~~~~~~~~~~~~~~~~~~RULE-IN CUT POINTS FOR PATIENTS WITH SUSPECTED ACUTECONGESTIVE HEART FAILURE:<50 yrs old: >450 pg/mL50-75 yrs old: >900 pg/mL>75 yrs old: >1800 pg/mLA positive bias may occur on patients taking BIOTINsupplements. CARDIAC ENZYMES [id number] 06:35:00* Test Item Value Reference Range Interpretation [...] valid only if similarmethodology is used.~~~~~~~~~~~~~~~~~~~~~~~~~~~~~~~~~~~~~~~~~~~~~~~~~~~~~~~~~~~ LACTIC [id number] 06:23:00* Test Item Value Reference Range Interpretation Comments LACTIC ACID (test code = LACT) 2.5 mmol/L 0.7-2.0 HH Critical Value reported toFirst Name:[id number] Last Name:RESULTS READ BACK AND VERIFIEDby CJENNIFER, on 12/09/18, @ 0622. Spec Comments: Must be collected witin 3hrs of time zeroCOMPREHENSIVE METABOLIC [id number] 06:21:00* Test Item Value Reference Range Interpretation [...] CHD)40-59mg/dL: Borderline Risk LDL Cholesterol<100mg/dL: Desirable LDL-C spxiacafyacib297-808sy/dL: Borderline High Risk LDL-C swgxytjbvxxat944-201mp/dL: High risk LDL-C concentration HDL-LDL Cholesterol is affected by a number of factors suchas smoking, age and sex.~~~~~~~~~~~~~~~~~~~~~~~~~~~~~~~~~~~~~~~~~~~~~~~~~~~~~~~~~~~~ [id number] 06:21:00* Test Item Value Reference Range Interpretation Comments PHOSPHOROUS (test code = PHOS) 6.1 mg/dL 2.5-4.5 H LACTIC DEHYDROGENASE(LDH)2018-12-09 06:21:00* Test Item Value Reference Range Interpretation Comments LACTIC DEHYDROGENASE(LDH) (test code = LDH) 586 U/L 313-618 N Please be advised of the updated reference ranges for the new Chemistry instrumentation. [id number] 06:21:00* Test Item Value Reference Range Interpretation Comments AMYLASE (test code = MELVINA) 437 U/L 30-110 H [id number] 06:21:00* Test Item Value Reference Range Interpretation Comments LIPASE (test code = LIP) 35 U/L 23-300 N [id number] 06:21:00* Test Item Value Reference Range Interpretation Comments MAGNESIUM (test code = MAG) 2.3 mg/dL 1.6-2.3 N THYROID STIMULATING [id number] 06:21:00* Test Item Value Reference Range Interpretation Comments THYROID STIMULATING HORMONE (test code = TSH) mIU/L 0.465-4. 68 NT PRO-BRAIN NATRIURETIC [id number] 06:21:00* Test Item Value Reference Range Interpretation Comments NT PRO-BRAIN NATRIURETIC PEPTI (test code = PROBNP) pg/mL 0- 299 CARDIAC ENZYMES [id number] 06:21:00* Test Item Value Reference Range Interpretation Comments CREATINE KINASE (CK) (test code = CK) 182 U/L 30-135 H CKMB (test code = CKMBT) ng/mL 0.5-5.0 TROPONIN-I (test code = TROPI) ng/mL 0.012-0.033 [id number] 06:21:00* Test Item Value Reference Range Interpretation Comments AMMONIA (test code = AMM) 31 umol/L 9-30 H PROTHROMBIN [id number] 06:14:00* Test Item Value Reference Range Interpretation [...] with Food and Drug Administrationrecommendations. THROMBOPLASTIN TIME [id number] 06:14:00* Test Item Value Reference Range Interpretation Comments THROMBOPLASTIN TIME PARTIAL (test code = PTT) 27.3 SECONDS 23.4-37. 0 N Therapeutic Range for Heparin EFFECTIVE 04/01/13 Heparin IU/mL aPTT Seconds0.3 64.30.7 88.8 POC ARTERIAL BLOOD [id number] 06:08:00* Test Item Value Reference Range Interpretation Comments POC ARTERIAL BLOOD GAS PH (test code = POCPHA) 7.365 7.35-7. 45 N POC ARTERIAL BLOOD GAS PCO2 (test code = JHHPFC9E) 18.8 mmHg 35- 45 LL POC ARTERIAL BLOOD GAS PO2 (test code = JQRMF1O) 98 mmHg 80-90 H POC HCO3 ARTERIAL (test code = MUAKYQ8N) 10.8 mmol/L 22.0-24.0 L POC BASE EXCESS (test code = POCBEA) -15 mmol/L -2.0-2.0 L POC O2 SATURATION (test code = POCO2S) 98 % 95-98 N ABG DELIVERY (test code = KEVAN) Cannula DR NOTIFIED ABG SITE (test code = SITEA) R Brach ALLENS TEST (test code = ALLENS) N/A CBC W/MANUAL [id number] 06:06:00* Test Item Value Reference Range Interpretation [...] LYMPH) % 20.5-45.5 - XR CHEST 1 [id number] 05:38:00 FAX: Alfred Martinez [phone] [place]: St: ADM FAX: Kofi Briones [phone] Name: LEONOR VELIZ [facility] : 1950 Age/S: 68/F [address] Unit #: [id number] Loc: C.ICU0 [place] [address] Phys: Alfred Ragsdale DIRECTOR OF [employer] 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 Bilateral shoulder degenerative changes. at 0595 Reported and signed by: Marcelo Li MD CC: Alfred Ragsdale DIRECTOR OF [employer]ING; Kofi Bean MD Technologist: RT Millie Nath) Trnscrd Date/Time/By: 12/09/2018 (2700) : By: [email or web address] PAGE 1 Signed Report FAX: Alfred Martinez [phone] [place]: [facility]: ADM FAX: Kofi Urena [phone] Name: LEONOR VELIZ [facility] : 1950 Age/S: 68/F [address] Unit #: [id number] Loc: [address] [address] Phys: Alfred Ragsdale NP Acct: [id number] Dis Date: Status: ADM IN PHONE #: [phone] Exam Date: 12/09/2018529 FAX #: [phone] Reason: baseline, sepsis EXAMS: CPT CODE: [id number] XR CHEST 1 V 20462 < Continued> Orig Print D/T: S: 12/09/2018 (8967) PAGE 2 Signed Report MRI SPINE LUMBAR WOW [place] [address] Patient Name: LEONOR VELIZ MR #: [id number] : 1950 Age/Sex: 67/F Req #: [id number] [facility] Physician: Ordered by: FRANCISCA VENTURA M.D. Report #: [id number] Location: MRI Room/Bed: Procedure: [id number] MRI/MRI SPINE LUMBAR WOW Exa m Date: [...] 4:07 PM Dictated By: COLLIN STRICKLAND MD 06 Transcribed By: TERESE on 11/13/171606 COPY TO: FRANCISCA VENTURA M.D. [place] [address] Patient Name: LEONOR VELIZ MR #: [id number] : 1950 Age/Sex: 67/F Req #: [id number] Adm Physician: Ordered by: AMBIKA VARGAS MD Report #: [id number] Location: MRI Room/Bed: Procedure: [id number] MRI/MRI SPINE CERVICAL WOW Exam Date: Exam [...] TO: AMBIKA VARGAS MD MRI BRAIN WOW [place] [address] Patient Name: LEONOR VELIZ MR #: [id number] : 1950 Age/Sex: 67/F Req #: [id number] Adm Physician: Ordered by: AMBIKA VARGAS MD Report #: [id number] Location: MRI Room/Bed: Procedure: [id number] MRI/MRI BRAIN WOW Exam Leighton e: Exam [...]
[2020-08-03 03:00] LABS: BASOPHILS # (AUTO) 0.1 (0.0-0.1); BASOPHILS % 0.6 % (0.0-1.0); EOSINOPHILS # (AUTO) 0.3 (0.0-0.4); HEMATOCRIT 30.3 % (34.2-44.1); HEMOGLOBIN 9.2 g/dL (12.0-16.0); LYMPHOCYTES # (AUTO) 1.1 (1.0-3.2); LYMPHOCYTES % 13.3 % (18.0-39.1); MEAN CORPUSCULAR HEMOGLOBIN 29.7 pg (28-32); MEAN CORPUSCULAR HGB CONC 30.4 g/dL (31-35); MEAN CORPUSCULAR VOLUME 97.7 fL (81-99); MONOCYTES # (AUTO) 1.1 (0.2-0.8); MONOCYTES % 13.9 % (4.4-11.3); NEUTROPHILS # (AUTO) 5.6 (2.1-6.9); NEUTROPHILS % 68.7 % (38.7-80.0); PLATELET COUNT 201 x10e3/uL (140-360)
[2020-08-03 03:18] LABS: ALBUMIN 3.1 g/dL (3.5-5.0); ALBUMIN/GLOBULIN RATIO 1.2 (0.8-2.0); ANION GAP 20.7 mmol/L (8-16); CREATININE, SERUM 1.74 mg/dL (0.57-1.11); POTASSIUM 4.7 mmol/L (3.5-5.1)
[2020-08-03 03:22] LABS: CREATINE KINASE MB 9.6 ng/mL (0-5.0)
[2020-08-03] MEDS ORDERED: HYDROCODONE/APAP 5MG-325MG TAB PO ONE (04:00)
[2020-08-03] MEDS ORDERED: BACLOFEN10 MG PO (06:47)
[2020-08-03] MEDS ORDERED: AMIODARONE HCL200 MG PO (06:47)
[2020-08-03] MEDS ORDERED: HYDROXYCHLOROQ200 MG PO (06:47)
[2020-08-03] MEDS ORDERED: LEVOTHYROXINE100 MCG PO (06:47)
[2020-08-03] MEDS ORDERED: ELIQUIS2.5 MG PO (06:47)
[2020-08-03] MEDS: HYDROXYCHLOROQUINE SULFATE 200 MG TAB PO SCH (09:00)
--- NOTE | 2020-08-03 09:53 | NUR ---
Received phone call from Dr. Camilla Portillo. Told to continue home medications but hold BP medication until further review.
[2020-08-03 10:35] LABS: CREATINE KINASE MB 8.9 ng/mL (0-5.0)
[2020-08-03] MEDS: AMIODARONE HCL 200 MG TAB PO SCH (11:08)
[2020-08-03] MEDS: HYDROCODONE/APAP 10MG-325MG TAB PO PRN ×2 (11:08→19:47)
[2020-08-03] MEDS: BACLOFEN 10 MG TAB PO SCH (11:08)
[2020-08-03 11:53] VITALS: BP 110/58
[2020-08-03 11:54] VITALS: BP 110/58
[2020-08-03 11:55] VITALS: BP 110/58
--- NOTE | 2020-08-03 12:00 | NUR ---
Pt received from ER at this time. Pt is aox4 and able to verbalize needs. Pt was admitted for increased weakness and fall. Breaths are even and unlabored on room air. Denies any pain at this time.
[2020-08-03] MEDS: METHYLPREDNISOLONE SOD SUCC 1,000 MG in SODIUM CHLORIDE 0.9% 250ML 250 ML IV SCH (12:15)
[2020-08-03] MEDS ORDERED: METHYLPREDNISOLONE SOD SUCC 1,000 MG/8 ML VIAL IV ONE (16:45)
[2020-08-03 16:52] VITALS: BP 126/54
[2020-08-03] MEDS ORDERED: METHYLPREDNISOLONE SOD SUCC 1,000 MG in SODIUM CHLORIDE 0.9% 100 ML IV ONE (17:00)
[2020-08-03] MEDS: APIXAB 2.5 MG TABLET PO SCH (17:07)
[2020-08-03 18:33] LABS: CREATINE KINASE MB 6.5 ng/mL (0-5.0)
[2020-08-03 20:00] VITALS: BP 122/56
--- NOTE | 2020-08-03 22:42 | NUR ---
CALLED MD Karley CRENSHAW. AWAITING CALL BACK.
--- NOTE | 2020-08-03 22:44 | NUR ---
SPOKE TO MD Karley CRENSHAW. NEW ORDERS RECEIVED.
--- NOTE | 2020-08-03 23:00 | NUR ---
History&Physical Chief Complaint - weakness and fall History of Present Illness Ms Villanueva is a 70 yo F with PMH significant for multiple sclerosis, SLE, RA, and paroxysmal Afib who presented for progressive lower extremity weakness and a recent fall. Patient states she slipped and fell 2 days prior to admission when walking on a sidewalk and stepping on the curb, falling, and hitting her head on the pavement. Denies losing consciousness at the time and states it was a misstep, however she does note she was feeling less balanced and sturdy on her feet. She was taking to a freestanding ER where CT head was negative for bleed, received stitches for her wounds, and sent home. Since then she has been feeling progressively weaker in her bilateral lower extremities and presented to [facility] ED for further evaluation. CXR and neck xray normal. Pelvic xray with possible nondisplaced ischial tuberosity fracture vs enthesopathic changes. Home Medications - see medication reconciliation Review of Systems - positive symptoms in bold General: No fever, chills, or fatigue HEENT: Denies visual changes, hearing loss, congestion, rhinorrhea, or bleeding Respiratory: No SOB, cough, or hemoptysis Cardiovascular: No chest pain, palpitations, SWANN, orthopnea, PND, leg edema, or claudication Gastrointestinal: No nausea, vomiting, diarrhea, constipation, or abdominal pain G/U: Denies dysuria, hematuria, incontinence, or discharge Musculoskeletal: No myalgias or arthralgias Neurological: No syncope, seizures, headaches, changes in sensation, or weakness Hematology: No bruising, bleeding, or lymphadenopathy Endocrine: No heat or cold intolerance, hair loss, or weight changes Skin: No rashes, sores, itching, bruising Psychiatric: Denies depression or elevated mood, or anxiety Past Medical History As per HPI Past Surgical History L5-6 spinal fusion Cervical spine laminectomy Family History Noncontributory Social History Does not drink, smoke, or use drugs Allergies Sulfa drugs, cimetidine Physical Exam Vitals: Temp: 98.7P: 72BP: 126/54RR: 18SpO2: 98% General Appearance: The patient is alert, oriented and in no acute distress. Appears euvolemic. Skin: Warm and hydrated without any rash. HEENT: Head is normocephalic, +large laceration to right protestant with crusted blood, sutures in place, no active bleeding; Nontender sinuses. Pupils are equal and reactive. The nares are patent. Oropharynx is moist and clear without lesions. Neck: Supple without lymphadenopathy. No JVD. 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 Normal S1 and S2 without S3/S4. No murmurs, rubs or gallops. Peripheral pulses symmetric +2. Respiratory / Chest: No crackles or wheezes are heard. Symmetric breath sounds. Preserved chest expansion. Abdomen: Soft, nontender, nondistended with good bowel sounds heard. No clinical organomegaly. Renal: There is no costovertebral angle tenderness. Extremities: Without cyanosis, clubbing or edema. Preserved ROM. Neurological: Gross nonfocal. Patient oriented x 3. Cranial nerves II - XII Grossly intact. DTRs +2. MS: bilateral upper extremities 4- / 5 strength; bilateral lower extremities 3+ / 5 strength and symmetrical Assessment/Plan #Bilateral lower extremity weakness #Gait instability/ataxia? - DDX: MS flare vs stroke vs metabolic cause - will obtain MRI Brain, c-spine, t-spine to assess for acute MS flare vs stroke - consult Neurology Dr Russell, appreciate assistance - at this time, low suspicion for metabolic cause of her weakness (no signs of infection, no confusion, labs largely unremarkable) - to clarify, patient never lost consciousness and does not require syncopal work-up #Afib - continue home eliquis and amiodarone I have spent 70 minutes oosy-ve-vbnc time with patient, reviewing clinical data, and formulating plan of treatment. Lazaro Portillo MD Internal Medicine
[2020-08-04] VITALS (7 sets, daily range): BP systolic 117–135; BP diastolic 56–65
[2020-08-04] MEDS: MORPHINE SULFATE 2 MG/ML SYR 1ML IV PRN ×2 (00:25→14:47)
[2020-08-04] MEDS: LEVOTHYROXINE SODIUM 75 MCG TAB PO SCH (05:10)
[2020-08-04 05:48] LABS: CALCIUM IONIZED 1.1 mmol/L (1.09-1.30)
[2020-08-04 06:08] LABS: ALBUMIN 2.3 g/dL (3.5-5.0); ALBUMIN/GLOBULIN RATIO 0.8 (0.8-2.0); ANION GAP 14.6 mmol/L (8-16); CALCIUM 8.4 mg/dL (8.4-10.2); CREATININE, SERUM 1.46 mg/dL (0.57-1.11); POTASSIUM 3.6 mmol/L (3.5-5.1)
[2020-08-04 06:31] LABS: MAGNESIUM 1.8 MG/DL (1.3-2.1); PHOSPHORUS 4.1 MG/DL (2.3-4.7)
--- NOTE | 2020-08-04 06:52 | NUR ---
REPORT GIVEN TO DAYSHIFT NURSE. ALERT AND ORIENTED. RESTING IN BED. NO SIGNS IV INFILTRATION. BED LOCKED AND IN LOW POSITION. BED ALARM ACTIVATED. RESPIRATORY AT BEDSIDE. CALL LIGHT WITHIN REACH.
[2020-08-04 07:15] LABS: BASOPHILS % 0.2 % (0.0-1.0); EOSINOPHILS # (AUTO) 0.8 (0.0-0.4); EOSINOPHILS % 16.2 % (0.0-6.0); HEMATOCRIT 26.4 % (34.2-44.1); LYMPHOCYTES # (AUTO) 0.6 (1.0-3.2); LYMPHOCYTES % 13.2 % (18.0-39.1); MEAN CORPUSCULAR HGB CONC 30.3 g/dL (31-35); MEAN CORPUSCULAR VOLUME 95.7 fL (81-99); MONOCYTES # (AUTO) 0.6 (0.2-0.8); MONOCYTES % 12.6 % (4.4-11.3); NEUTROPHILS # (AUTO) 2.7 (2.1-6.9); NEUTROPHILS % 57.4 % (38.7-80.0); PLATELET COUNT 161 x10e3/uL (140-360); RED BLOOD COUNT 2.76 x10e6/uL (3.6-5.1); RED CELL DISTRIBUTION WIDTH 14.9 % (11.7-14.4)
[2020-08-04] MEDS: HYDROXYCHLOROQUINE SULFATE 200 MG TAB PO SCH (08:38)
[2020-08-04] MEDS: AMIODARONE HCL 200 MG TAB PO SCH (08:38)
[2020-08-04] MEDS: BACLOFEN 10 MG TAB PO SCH (08:38)
[2020-08-04] MEDS: APIXAB 2.5 MG TABLET PO SCH ×2 (08:38→17:13)
[2020-08-04] MEDS ORDERED: METHYLPREDNISOLONE SOD SUCC 1,000 MG/8 ML VIAL IV SCH (09:15)
[2020-08-04 09:46] LABS: ANISOCYTOSIS SLIGHT; EOSINOPHILS % (MANUAL) 10 % (0-7); LYMPHOCYTES % (MANUAL) 7 % (19-48); MONOCYTES % (MANUAL) 13 % (3.4-9.0); NEUTROPHILS % (MANUAL) 70 % (40-74); PLATELET ESTIMATE ADEQUATE; PLATELET MORPHOLOGY COMMENT NORMAL; RBC MORPHOLOGY COMMENT NORMAL
[2020-08-04] MEDS ORDERED: SODIUM CHLORIDE 0.9% 250ML 250 ML ONE (11:56)
--- NOTE | 2020-08-04 12:17 | NUR ---
WOUND CARE CONSULT 70 YO FEMALE HX OF SYNCOPY AND FALL HARISH 20 0N CONSERVATIVE PUP STATUS AND INTERVENTIONS VISCO SURFACE LABS: WBC- 8.21 HGB- 9.2 GLUCOSE-84 HEAD TO TOE SKIN ASSESSMENT COMPLETE PATIENT PRESENTS WITH RIGHT ABOVE EYE SUTURE LINE LEFT GREAT TOE SCAB AREA R/T TRAMA FROM BUMPING IT RECOMMENDATIONS: NURSING TO CONTINUE TO MONITOR PATIENT AND KEEP SKIN CLEAN AND FREE FROM LOOSE STOOL OR IRRITATING MOISTURE AND CONTINUE TO FOLLOW CONSERVATIVE PUP STATUS INTERVENTIONS NURSING TO CONTINUE TO GET PATIENT OUT OF BED FOR MEALS AND MUCH TOLERATED NURSING TO CLEAN ABOVE EYE SUTURE LINE AND LEFT GREAT TOE SCAB AREA WITH NORMAL SALINE DAILY AND APPLY BACTROBAN OINTMENT AND LEAVE OPEN TO AIR Addendum: 08/04/20 at 1221 by Mike Holm RN Amended: Links added.
--- NOTE | 2020-08-04 12:36 | Consultation ---
DATE OF CONSULTATION: HISTORY OF PRESENT ILLNESS: A 70-year-old female with past medical history of paroxysmal atrial fibrillation. She also has history of diagnoses of rheumatoid arthritis, as well possibly other mixed connective tissue disease from 1993, being given steroids for a long time. She was also diagnosed with multiple sclerosis and has been following up with a neurologist. She was given Copaxone over 10 years ago, but now she is only on treatment for her rheumatoid arthritis and she was told by her neurologist that covers her multiple sclerosis as well. The patient has been having no difficulty with ambulation and weakness in upper or lower extremities recently and she tripped without passing out, that is the reason why she was admitted. Neurology consultation is for MS exacerbation. She received 1 g of Solu-Medrol so far. MEDICATIONS: Please refer to medication list. REVIEW OF SYSTEMS: Other than what mentioned above were all negative. PAST MEDICAL HISTORY: As above. PAST SURGICAL HISTORY: She has had spinal fusion in the lumbar area as well as cervical spine laminectomy. The patient also has history of chronic kidney disease and she cannot have contrast MRI or contrast CT for that reason. ALLERGIES: ALLERGIC TO SULFA DRUGS AND CIMETIDINE. PHYSICAL EXAMINATION: VITAL SIGNS: Temperature 98.7, respiratory rate 18, blood pressure 121/60, pulse rate 82. HEAD and NECK: Lacerations on right sabianism area, showed bruises. ABDOMEN: Soft. EXTREMITIES: Pulses present. NEUROLOGIC: The patient is alert. Follows commands. Normal speech. Good memory. Mental status examination is normal. Extraocular muscle movements are intact. Pupils are reactive bilaterally and equal to light. Sensation is normal on face. Full visual field to confrontation. Uvula midline. Gag positive. No facial asymmetry. Tongue midline. She had diffuse weakness around 4/5 in upper and lower extremity, symmetrical. Decreased pinprick and light touch distally. Three planters were equivocal. Gait not tested because she was very unsteady. The patient was noted to have abnormal talach-oz-cajz, mainly on the right side. ASSESSMENT: The patient with deteriorating neurological symptoms and signs from her baseline with a diagnosis of multiple sclerosis given to her in 2000 on top of rheumatoid arthritis and SLE. I am not certain if the work up confirms the diagnosis of multiple falls she had because she mentioned that was done only after she was diagnosed with rheumatoid arthritis and a diagnosis of multiple sclerosis was based on the MRI only. She is also on no immune modulating treatment specifically for multiple sclerosis. However, rheumatoid arthritis and vasculitic disease can give a similar picture which also responds to immuno-modulating treatments and corticosteroids. At this point, we will obtain an MRI of the brain and cervical spine and thoracic spine with and without contrast to evaluate for possible enhancing lesions suggestive of multiple sclerosis or stroke versus other and decide about treatment with Solu-Medrol, pulse treatment for five days in the form of 1 g daily. If the MRI does not show evidence of stroke, we will proceed with the IV Solu-Medrol treatment. In the meantime, we will continue with adequate as well as high dose statins, considering that she is high risk to have strokes. Physical therapy, occupational therapy and speech therapy. Consider rehabilitation evaluation. Shaneka Russell MD AM/SRINI /[id number]
--- NOTE | 2020-08-04 14:17 | NUR ---
logistics specialist visited the pt and enquired about her hospital stay and well being , she was able to share her life review , provided hope building and pastoral comfort and prayer. pt appreciated logistics specialist visit and prayer support
--- NOTE | 2020-08-04 15:00 | Diagnostic Imaging Report ---
Examination: MRI BRAIN WO HISTORY:Multiple sclerosis. COMPARISON:Multiple brain MRIs with the most recent performed January 29, 2020 TECHNIQUE: Sagittal FLAIR with axial and coronal reconstructions; axial precontrast T1, postcontrast T2, FLAIR Contrast: None. FINDINGS: T2 lesions: Number: Innumerable discrete and confluent T2 lesions. No new lesion. Location: Periventricular, deep, callosal septal interface, juxtacortical white matter. Gosia. T1 "black holes": There are no lesions of cerebrospinal fluid equivalent intensity. Enhancing lesions: Not able to be assessed. Corpus callosum volume: Mild volume loss particularly of the posterior body. Brain volume: Mild generalized volume loss. Additional finding: Chronic cortical/subcortical right parietal insult along the right superior parietal lobule and pars marginalis with encephalomalacia and gliosis remains unchanged. Unchanged small chronic lacunar infarcts present within the basal ganglia and in the left thalamus. IMPRESSION: No new lesion when compared to prior brain MRI performed January 29, 2020. Unchanged lesions, consistent multiple sclerosis. Signed by: Dr. Nanette Abreu M.D. on 08/04/2020 2:56 PM
--- NOTE | 2020-08-04 15:23 | Diagnostic Imaging Report ---
Examination: MRI SPINE CERVICAL WO HISTORY: Multiple sclerosis. COMPARISON: Cervical spine MRI performed January 29, 2020 TECHNIQUE: Sagittal and axial T1 ; sagittal T2 and STIR. Axial T2. Intravenous contrast: None FINDINGS: Spinal cord size: Normal, unchanged. Enhancing lesions: Cannot be assessed. T2 lesions: None, unchanged T1 lesions: There are no lesions of cerebrospinal fluid equivalent intensity. Vertebrae: Normal alignment, height, and signal intensity. Prior anterior cervical discectomy and fusion from C4 to C7. Interbody fusion present at C4-C5 and at C6-C7. Discs: Degenerative disks at C3-C4 and C6-C7, unchanged. Foramen magnum: No Chiari malformation, mass, or basilar invagination. Additional findings:None. IMPRESSION: No new demyelinating lesions of the cervical spinal cord when compared to prior cervical spine MRI performed January 29, 2020. Signed by: Dr. Nanette Abreu M.D. on 08/04/2020 3:20 PM
--- NOTE | 2020-08-04 15:28 | Diagnostic Imaging Report ---
Examination:MRI SPINE THORACIC WO HISTORY: Multiple sclerosis. . COMPARISON: Thoracic spine MRI performed January 29, 2020. TECHNIQUE: Sagittal T1; sagittal T2 and STIR. Axial T1 . Intravenous contrast: None . FINDINGS: Spinal cord size: Normal, unchanged. Enhancing lesions: Cannot be assessed. T2 lesions: No definite lesion. T1 lesions: None. Vertebrae: Normal alignment, height, and signal intensity. Chronic compression fracture of T9, unchanged. Discs: Multilevel degenerative disks at T2-T3, T5-T6, T6-T7 and T7-T8 without canal stenosis. Unchanged mild canal stenosis at T8-T9 due to mild retropulsed fragment of the T9 vertebral body. IMPRESSION: No definite new lesion when compared to prior thoracic spine MRI performed January 29, 2020. Unchanged chronic compression fracture of T9. Signed by: Dr. Nanette Abreu M.D. on 08/04/2020 3:25 PM
--- NOTE | 2020-08-04 15:47 | Diagnostic Imaging Report ---
TECHNIQUE: Magnetic resonance imaging of the RIGHT KNEE was performed WITHOUT injected contrast. HISTORY: Syncope and fall, rule out occult fracture COMPARISON: None available. FINDINGS: Evaluation is partially limited by motion artifacts. LIGAMENTS AND TENDONS: ACL: Intact PCL: Intact Collateral ligaments: Intact Iliotibial band: Intact. IT band inserts on lateral tibial plateau fracture fragment described below. Popliteal tendon: Intact Extensor mechanism: Intact JOINT: Menisci: Medial: Intact Lateral: Intact Articular Cartilage: Medial Compartment: Low-grade thinning along the weightbearing medial femoral condyle. No focal defect. Lateral Compartment: Low-grade thinning along the weightbearing lateral femoral condyle. Disruption of articular cartilage associated with lateral tibial plateau fracture described below. Patellofemoral Compartment: Diffuse low-grade thinning with high-grade fissuring along the lateral patellar facet. Joint Fluid: Moderate joint effusion. BONE: Nondisplaced vertical fracture along the lateral tibial plateau extending from the anterior aspect of the tibial spines to the posterior lateral periphery without significant impaction or step-off of the tibial articular surface. Additional bone marrow contusion along the periphery of the medial femoral condyle. SOFT TISSUES: Fluid signal tracking along the distal femur anterior to the biceps femoris muscle/tendon. IMPRESSION: 1. Nondisplaced vertical fracture of the lateral tibial plateau with extension from the tibial spines to the periphery. No significant impaction or step-off of the tibial articular surface. 2. Additional bone marrow contusion along the periphery of the medial femoral condyle. 3. Moderate joint effusion. Additional fluid signal tracking along the lateral soft tissues at the distal femur, may represent reactive edema and/or contusion. 4. Mild tricompartmental cartilage degeneration. Signed by: Dr. Cody Ruiz M.D. on 08/04/2020 3:43 PM
--- NOTE | 2020-08-04 16:51 | NUR ---
Paged Dr. Means to report MRI results, waiting for call back.
--- NOTE | 2020-08-04 18:37 | NUR ---
Progress Note Subjective 08/04: MRI brain, c-spine, t-spine without evidence of MS flare. These studies were without contrast as patient has CKD. Also, consulted Dr Means for assistance with pelvic fracture and R knee. Doing well today, PT ordered yesterday. History of Present Illness Ms Villanueva is a 70 yo F with PMH significant for multiple sclerosis, SLE, RA, and paroxysmal Afib who presented for progressive lower extremity weakness and a recent fall. Patient states she slipped and fell 2 days prior to admission when walking on a sidewalk and stepping on the curb, falling, and hitting her head on the pavement. Denies losing consciousness at the time and states it was a misstep, however she does note she was feeling less balanced and sturdy on her feet. She was taking to a freestanding ER where CT head was negative for bleed, received stitches for her wounds, and sent home. Since then she has been feeling progressively weaker in her bilateral lower extremities and presented to [facility] ED for further evaluation. CXR and neck xray normal. Pelvic xray with possible nondisplaced ischial tuberosity fracture vs enthesopathic changes. Physical Exam Vitals: Temp: 99.5P: 87BP: 135/64RR: 20SpO2: 100% General Appearance: The patient is alert, oriented and in no acute distress. Appears euvolemic. Skin: Warm and hydrated without any rash. HEENT: Head is normocephalic, +large laceration to right methodist with crusted blood, sutures in place, no active bleeding; Nontender sinuses. Pupils are equal and reactive. The nares are patent. Oropharynx is moist and clear without lesions. Neck: Supple without lymphadenopathy. No JVD. Thyroid NV/SENIOR LITIGATION [place] Heart / Cardiovascular: Regular rate and rhythm. Normal S1 and S2 without S3/S4. No murmurs, rubs or gallops. Peripheral pulses symmetric +2. Respiratory / Chest: No crackles or wheezes are heard. Symmetric breath sounds. Preserved chest expansion. Abdomen: Soft, nontender, nondistended with good bowel sounds heard. No clinical organomegaly. Renal: There is no costovertebral angle tenderness. Extremities: Without cyanosis, clubbing or edema. Preserved ROM. +right knee pain Neurological: Gross nonfocal. Patient oriented x 3. Cranial nerves II - XII Grossly intact. DTRs +2. MS: bilateral upper extremities 4- / 5 strength; bilateral lower extremities 3+ / 5 strength and symmetrical Assessment/Plan #Bilateral lower extremity weakness #Gait instability/ataxia? - DDX: MS flare vs stroke vs metabolic cause - MRI Brain, c-spine, t-spine without evidence of stroke or MS flare, however study is limited as we could not use contrast - consult Neurology Dr Russell, appreciate assistance - at this time, low suspicion for metabolic cause of her weakness (no signs of infection, no confusion, labs largely unremarkable) - to clarify, patient never lost consciousness and does not require syncopal work-up - per neuro, consider steroids #Nondisplaced vertical fracture of the right lateral tibial plateau - originally consulted Dr Means for concern of pelvic fracture, however this appears to be an old fracture; she complained of right knee pain so MRI ordered which showed nondisplaced fracture of right lateral tibial plateau - Dr Means to evaluate #Afib - continue home eliquis and amiodarone Lazaro Portillo MD Internal Medicine
--- NOTE | 2020-08-04 19:05 | NUR ---
RECEIVED BEDSIDE SHIFT REPORT FROM PREVIOUS NURSE. CALL LIGHT WITHIN REACH. PATIENT IN BED. PATIENT IS A&OX3.
[2020-08-05] VITALS (7 sets, daily range): BP systolic 122–142; BP diastolic 50–80
--- NOTE | 2020-08-05 00:41 | NUR ---
PATIENT ASLEEP IN BED. HOURLY ROUNDING PERFORMED
[2020-08-05] MEDS: LEVOTHYROXINE SODIUM 75 MCG TAB PO SCH (05:25)
[2020-08-05 05:44] LABS: BASOPHILS % 0.3 % (0.0-1.0); HEMATOCRIT 28.4 % (34.2-44.1); HEMOGLOBIN 8.8 g/dL (12.0-16.0); LYMPHOCYTES # (AUTO) 0.3 (1.0-3.2); LYMPHOCYTES % 9.3 % (18.0-39.1); MEAN CORPUSCULAR HEMOGLOBIN 29.4 pg (28-32); MONOCYTES # (AUTO) 0.1 (0.2-0.8); MONOCYTES % 2.2 % (4.4-11.3); NEUTROPHILS # (AUTO) 2.7 (2.1-6.9); NEUTROPHILS % 87.2 % (38.7-80.0); PLATELET COUNT 183 x10e3/uL (140-360); RED BLOOD COUNT 2.99 x10e6/uL (3.6-5.1); RED CELL DISTRIBUTION WIDTH 14.5 % (11.7-14.4)
[2020-08-05 05:56] LABS: CALCIUM IONIZED 1.1 mmol/L (1.09-1.30)
[2020-08-05 06:10] LABS: ALBUMIN 2.6 g/dL (3.5-5.0); ALBUMIN/GLOBULIN RATIO 0.7 (0.8-2.0); ANION GAP 15.2 mmol/L (8-16); CREATININE, SERUM 1.46 mg/dL (0.57-1.11); PHOSPHORUS 3.2 MG/DL (2.3-4.7); POTASSIUM 4.2 mmol/L (3.5-5.1)
--- NOTE | 2020-08-05 06:58 | NUR ---
GAVE BEDSIDE SHIFT REPORT TO ONCOMING NURSE. CALL LIGHT WITHIN REACH. PATIENT IN BED. HOURLY ROUNDING DONE.
[2020-08-05] MEDS: AMIODARONE HCL 200 MG TAB PO SCH (08:48)
[2020-08-05] MEDS: HYDROXYCHLOROQUINE SULFATE 200 MG TAB PO SCH (08:48)
[2020-08-05] MEDS: BACLOFEN 10 MG TAB PO SCH (08:48)
[2020-08-05] MEDS: APIXAB 2.5 MG TABLET PO SCH ×2 (08:48→17:09)
[2020-08-05] MEDS: MUPIROCIN 2% OINT 22 GM TUBE TOP SCH (10:36)
[2020-08-05] MEDS: METHYLPREDNISOLONE SOD SUCC 1,000 MG in SODIUM CHLORIDE 0.9% 250ML 250 ML IV SCH (10:36)
[2020-08-05] MEDS ORDERED: METOPROLOL TARTRATE 25 MG TAB PO ONE (12:00)
[2020-08-05] MEDS: DOCUSATE SODIUM 100 MG CAP PO SCH (12:42)
--- NOTE | 2020-08-05 12:56 | NUR ---
Received order for inpatient rehab eval. Spoke to pt at bedside. Gave her list of facilities in the area - [facility], [facility] and [facility]. Pt chose [facility] Kaya Waller. Choice letter signed. Copy to pt. Signed copy placed in chart. Referral sent to Odessa Chaves with [facility]. She confirmed that she received clinical.
--- NOTE | 2020-08-05 17:46 | NUR ---
Progress Note Subjective 08/05: Started on decadron per Dr Russell. Also placed in a right knee brace per Dr Means for right tibial fracture, pending outside records for comparison to finalize plan. Evaluating for inpatient rehab or SNF. 08/04: MRI brain, c-spine, t-spine without evidence of MS flare. These studies were without contrast as patient has CKD. Also, consulted Dr Means for assistance with pelvic fracture and R knee. Doing well today, PT ordered yesterday. History of Present Illness Ms Villanueva is a 70 yo F with PMH significant for multiple sclerosis, SLE, RA, and paroxysmal Afib who presented for progressive lower extremity weakness and a recent fall. Patient states she slipped and fell 2 days prior to admission when walking on a sidewalk and stepping on the curb, falling, and hitting her head on the pavement. Denies losing consciousness at the time and states it was a misstep, however she does note she was feeling less balanced and sturdy on her feet. She was taking to a freestanding ER where CT head was negative for bleed, received stitches for her wounds, and sent home. Since then she has been feeling progressively weaker in her bilateral lower extremities and present ed to [facility] ED for further evaluation. CXR and neck xray normal. Pelvic xray with possible nondisplaced ischial tuberosity fracture vs enthesopathic changes. Physical Exam Vitals: Temp: 99.4P: 77BP: 126/56RR: 17SpO2: 96% General Appearance: The patient is alert, oriented and in no acute distress. Appears euvolemic. Skin: Warm and hydrated without any rash. HEENT: Head is normocephalic, +large laceration to right holiness with crusted blood, sutures in place, no active bleeding; Nontender sinuses. Pupils are equal and reactive. The nares are patent. Oropharynx is moist and clear without lesions. Neck: Supple without lymphadenopathy. No JVD. 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 Normal S1 and S2 without S3/S4. No murmurs, rubs or gallops. Peripheral pulses symmetric +2. Respiratory / Chest: No crackles or wheezes are heard. Symmetric breath sounds. Preserved chest expansion. Abdomen: Soft, nontender, nondistended with good bowel sounds heard. No clinical organomegaly. Renal: There is no costovertebral angle tenderness. Extremities: Without cyanosis, clubbing or edema. Preserved ROM. +right knee in brace Neurological: Gross nonfocal. Patient oriented x 3. Cranial nerves II - XII Grossly intact. DTRs +2. MS: bilateral upper extremities 4- / 5 strength; bilateral lower extremities 3+ / 5 strength and symmetrical Assessment/Plan #Bilateral lower extremity weakness #Gait instability/ataxia? - DDX: MS flare vs stroke vs metabolic cause - MRI Brain, c-spine, t-spine without evidence of stroke or MS flare, however study is limited as we could not use contrast - consult Neurology Dr Russell, appreciate assistance - at this time, low suspicion for metabolic cause of her weakness (no signs of infection, no confusion, labs largely unremarkable) - to clarify, patient never lost consciousness and does not require syncopal work-up - per neuro, started decadron drip #Nondisplaced vertical fracture of the right lateral tibial plateau - originally consulted Dr Means for concern of pelvic fracture, however this appears to be an old fracture; she complained of right knee pain so MRI ordered which showed nondisplaced fracture of right lateral tibial plateau - Dr Means to evaluate, placed in brace, will compare prior images from another facility to see if this is a new vs old fracture #Afib - continue home eliquis and amiodarone - starting metoprolol tartrate 25mg BID #Disposition - given her weakness and right tibial fracture, patient would benefit from inpatient rehab vs SNF Lazaro Portillo MD Internal Medicine
--- NOTE | 2020-08-05 19:03 | NUR ---
RECEIVED BEDSIDE SHIFT REPORT FROM PREVIOUS NURSE. CALL LIGHT WITHIN REACH. PATIENT IN BED. RIGHT KNEE IMMOBILIZER IN PLACE.
--- NOTE | 2020-08-05 21:10 | Progress Note ---
DATE: SUBJECTIVE: The patient is with no new neurological symptoms. No reaction to Solu-Medrol. MEDICATIONS: Per list. PHYSICAL EXAMINATION: Essentially unchanged with no cranial nerve abnormalities. Normal mental status examination. Deep tendon reflexes are 3. Motor is 4+/5 all over. MRI of the brain and thoracic as well as cervical spine were done without contrast because of chronic kidney disease. As such, the results are not suggestive for any active inflammatory lesions to confirm or rule out definitely multiple sclerosis flare up and exasperation. In fact, the imaging does not show any new T2 lesions, which makes it less likely that she has any exacerbation of multiple sclerosis and add more questions to the diagnosis itself. It would be helpful to obtain neurodiagnostic study and nerve conduction study and EMG on the patient to evaluate for the potential of peripheral process that is causing her current symptoms and weakness. This could be related to her rheumatoid arthritis and vasculitic disease. At any rate, it would respond to pulse steroid treatment. Considering the findings on the MRI, we will stop the Solu-Medrol after the 3rd dose, which she has received already of Solu-Medrol 1 g daily over the last three days and we will switch her to a weaning dose of prednisone over the next four days. The patient is ready to be transferred to rehabilitation facility from Neurology standpoint. She can continue with the weaning dose of prednisone p.o. in the rehabilitation facility and she has been accepted apparently to [facility]. Arrangements for a neurodiagnostic study can be done as an outpatient or at the rehabilitation facility. Shaneka Russell MD AM/SRINI /[id number]
[2020-08-05] MEDS: METOPROLOL TARTRATE 25 MG TAB PO SCH (21:15)
[2020-08-05] MEDS: HYDROCODONE/APAP 10MG-325MG TAB PO PRN (22:19)
[2020-08-06] VITALS (8 sets, daily range): BP systolic 110–129; BP diastolic 54–68
[2020-08-06] MEDS: LEVOTHYROXINE SODIUM 75 MCG TAB PO SCH (05:28)
[2020-08-06 06:25] LABS: CALCIUM IONIZED 1.1 mmol/L (1.09-1.30)
[2020-08-06 06:34] LABS: BASOPHILS % 0.2 % (0.0-1.0); HEMATOCRIT 26.2 % (34.2-44.1); HEMOGLOBIN 8.3 g/dL (12.0-16.0); LYMPHOCYTES # (AUTO) 0.3 (1.0-3.2); LYMPHOCYTES % 4.8 % (18.0-39.1); MEAN CORPUSCULAR HEMOGLOBIN 30.4 pg (28-32); MEAN CORPUSCULAR HGB CONC 31.7 g/dL (31-35); MONOCYTES # (AUTO) 0.2 (0.2-0.8); MONOCYTES % 3.8 % (4.4-11.3); NEUTROPHILS # (AUTO) 5.2 (2.1-6.9); NEUTROPHILS % 90.3 % (38.7-80.0); PLATELET COUNT 207 x10e3/uL (140-360); RED BLOOD COUNT 2.73 x10e6/uL (3.6-5.1); RED CELL DISTRIBUTION WIDTH 14.4 % (11.7-14.4)
[2020-08-06 06:45] LABS: ALBUMIN 2.4 g/dL (3.5-5.0); ALBUMIN/GLOBULIN RATIO 0.8 (0.8-2.0); CALCIUM 8.2 mg/dL (8.4-10.2); CREATININE, SERUM 1.32 mg/dL (0.57-1.11); MAGNESIUM 2.1 MG/DL (1.3-2.1); PHOSPHORUS 2.7 MG/DL (2.3-4.7)
--- NOTE | 2020-08-06 07:00 | NUR ---
RECEIVED BEDSIDE SHIFT REPORT FROM OFF GOING NIGHT NURSE. PATIENT ABLE TO VOICE NEEDS. RESPIRATIONS EVEN AND NONLABORED PATIENT IN STABLE CONDITION, NO S/S OF DISTRESS NOTED. COLOSTOMY NOTED. TELEMETRY APPLIED. IV SITE ASYMPTOMATIC AND PATENT, TRANSPARENT DRESSING C/D/I. STITCHES NOTED TO THE RIGHT EYE AREA. BED IN LOWEST POSITION AND LOCKED, SIDE RAILS X 2, NONSKID SOCKS APPLIED. CALL LIGHT WITHIN REACH.
--- NOTE | 2020-08-06 07:04 | NUR ---
RECEIVED BEDSIDE SHIFT REPORT FROM PREVIOUS NURSE. CALL LIGHT WITHIN REACH. PATIENT IN BED. Addendum: 08/06/20 at 0705 by Erin Peralta RN GAVE BEDSIDE SHIFT REPORT TO PREVIOUS NURSE. CALL LIGHT WITHIN REACH. PATIENT IN BED. HOURLY ROUNDING PERFORMED. Addendum: 08/06/20 at 0715 by Erin Peralta RN GAVE BEDSIDE SHIFT REPORT TO ONCHONORIO NURSE NOT PREVIOUS NURSE
[2020-08-06] MEDS: AMIODARONE HCL 200 MG TAB PO SCH (09:00)
[2020-08-06] MEDS ORDERED: PREDNISONE 20 MG TAB PO SCH (09:00)
[2020-08-06] MEDS: MUPIROCIN 2% OINT 22 GM TUBE TOP SCH (09:00)
[2020-08-06] MEDS: DOCUSATE SODIUM 100 MG CAP PO SCH (09:00)
[2020-08-06] MEDS: BACLOFEN 10 MG TAB PO SCH (09:01)
[2020-08-06] MEDS: APIXAB 2.5 MG TABLET PO SCH ×2 (09:01→17:38)
[2020-08-06] MEDS: METOPROLOL TARTRATE 25 MG TAB PO SCH ×2 (09:01→20:20)
[2020-08-06] MEDS: HYDROXYCHLOROQUINE SULFATE 200 MG TAB PO SCH (09:02)
[2020-08-06] MEDS ORDERED: PREDNISONE 20 MG TAB PO NR (10:00)
[2020-08-06] MEDS: HYDROCODONE/APAP 10MG-325MG TAB PO PRN ×2 (13:06→20:31)
--- NOTE | 2020-08-06 16:21 | NUR ---
Spoke with patient today about her concerns regarding her ability to turn herself from side to side. We agreed to turn her every 2 hours or at least ask her if she wants to be turned. She was agreeable to this and a schedule was placed on her white board.
--- NOTE | 2020-08-06 19:13 | NUR ---
COMPLETED BEDSIDE SHIFT AND ROUNDING WITH ONCOMING NIGHT NURSE. PATIENT ABLE TO VOICE NEEDS. RESPIRATIONS EVEN AND NONLABORED. PATIENT IN STABLE CONDITION, NO S/S OF DISTRESS NOTED. IMMOBILIZER NOTED TO THE RIGHT LEG. COLOSTOMY NOTED. TELEMETRY APPLIED. IV SITE ASYMPTOMATIC AND PATENT, TRANSPARENT DRESSING C/D/I. STITCHES NOTED TO THE RIGHT EYE AREA. WOUND CARE COMPLETED TO THE LEFT TOE THIS SHIFT. BED IN LOWEST POSITION AND LOCKED, SIDE RAILS X 2, NONSKID SOCKS APPLIED. CALL LIGHT WITHIN REACH.
--- NOTE | 2020-08-06 20:39 | Progress Note ---
DATE: 08/06/2020 SUBJECTIVE: The patient had a good day, she said much better. She is now switched to the p.o. prednisone and she has pending discharge to [facility] rehabilitation. Had no more symptoms. MEDICATIONS: Per list. PHYSICAL EXAMINATION: VITAL SIGNS: Temperature 98.7, respiratory rate 16, pulse rate 82, blood pressure 121/60. HEAD AND NECK: Bruises stitches on the right face. No facial asymmetry of the midline. NEUROLOGIC: Gag positive. Motor around 5-/5 diffusely. Deep tendon reflexes are 2. Plantars are equivocal. ASSESSMENT: The patient seems to be doing much better. She is now on a weaning dose of prednisone over next 6 days including today. She will be going to [facility] rehabilitation or continue with Eliquis because of her atrial fibrillation and history of embolization as well as statins. Physical occupational therapy as scheduled. Shaneka Russell MD AM/SRINI /[id number]
[2020-08-07] VITALS (7 sets, daily range): BP systolic 121–131; BP diastolic 58–64
[2020-08-07] MEDS: HYDROCODONE/APAP 10MG-325MG TAB PO PRN ×2 (03:16→12:47)
[2020-08-07 05:53] LABS: HEMATOCRIT 24.1 % (34.2-44.1); HEMOGLOBIN 7.5 g/dL (12.0-16.0); LYMPHOCYTES # (AUTO) 0.3 (1.0-3.2); LYMPHOCYTES % 5.7 % (18.0-39.1); MEAN CORPUSCULAR HEMOGLOBIN 29.6 pg (28-32); MEAN CORPUSCULAR HGB CONC 31.1 g/dL (31-35); MEAN CORPUSCULAR VOLUME 95.3 fL (81-99); MONOCYTES # (AUTO) 0.3 (0.2-0.8); MONOCYTES % 6.2 % (4.4-11.3); NEUTROPHILS # (AUTO) 3.8 (2.1-6.9); NEUTROPHILS % 87.2 % (38.7-80.0); PLATELET COUNT 197 x10e3/uL (140-360); RED BLOOD COUNT 2.53 x10e6/uL (3.6-5.1); RED CELL DISTRIBUTION WIDTH 14.3 % (11.7-14.4)
[2020-08-07 06:16] LABS: ALBUMIN 2.3 g/dL (3.5-5.0); ALBUMIN/GLOBULIN RATIO 0.9 (0.8-2.0); CALCIUM 7.8 mg/dL (8.4-10.2); CREATININE, SERUM 1.27 mg/dL (0.57-1.11); PHOSPHORUS 2.8 MG/DL (2.3-4.7)
[2020-08-07 06:18] LABS: CALCIUM IONIZED 1.1 mmol/L (1.09-1.30)
[2020-08-07] MEDS: LEVOTHYROXINE SODIUM 75 MCG TAB PO SCH (06:22)
[2020-08-07] MEDS: DOCUSATE SODIUM 100 MG CAP PO SCH (09:00)
[2020-08-07] MEDS ORDERED: PREDNISONE 20 MG TAB PO SCH (09:00)
[2020-08-07] MEDS: BACLOFEN 10 MG TAB PO SCH (09:05)
[2020-08-07] MEDS: AMIODARONE HCL 200 MG TAB PO SCH (09:05)
[2020-08-07] MEDS: APIXAB 2.5 MG TABLET PO SCH ×2 (09:05→17:18)
[2020-08-07] MEDS: HYDROXYCHLOROQUINE SULFATE 200 MG TAB PO SCH (09:06)
[2020-08-07] MEDS: METOPROLOL TARTRATE 25 MG TAB PO SCH ×2 (09:06→20:49)
[2020-08-07] MEDS: MUPIROCIN 2% OINT 22 GM TUBE TOP SCH (09:12)
--- NOTE | 2020-08-07 19:25 | NUR ---
COMPLETED BEDSIDE SHIFT REPORT AND ROUNDING WITH ONCOMING NIGHT NURSE. PATIENT ABLE TO VOICE NEEDS. RESPIRATIONS EVEN AND NONLABORED. PATIENT IN STABLE CONDITION, NO S/S OF DISTRESS NOTED. IMMOBILIZER NOTED TO THE RIGHT LEG. COLOSTOMY NOTED. TELEMETRY APPLIED. IV SITE ASYMPTOMATIC AND PATENT, TRANSPARENT DRESSING C/D/I. STITCHES NOTED TO THE RIGHT EYE AREA. WOUND CARE COMPLETED TO THE LEFT TOE THIS SHIFT. BED IN LOWEST POSITION AND LOCKED, SIDE RAILS X 2, NONSKID SOCKS APPLIED. CALL LIGHT WITHIN REACH.
[2020-08-07] MEDS ORDERED: ZOLPIDEM TARTRATE 10 MG TAB PO PRN (20:45)
--- NOTE | 2020-08-07 23:08 | Progress Note ---
DATE: SUBJECTIVE: The patient with no new complaints. She is awaiting transfer to [facility] . She said she had a good day today. MEDICATIONS: Per medication list. PHYSICAL EXAMINATION: No ophthalmoplegia. Mental status examination normal. Cranial nerve examination normal. Mild diffuse weakness of 5-/5. Decreased vibration and proprioception distally in the upper and lower extremities. Deep tendon reflexes are 1. Plantars are equivocal. ASSESSMENT: The patient with a history of rheumatoid arthritis and systemic lupus erythematosus and diagnosis of multiple sclerosis and no new lesions on imaging of central nervous system. It is possible that her ongoing weakness is related to ongoing peripheral neuropathy process which could be related to her rheumatoid arthritis and systemic lupus erythematosus and vasculitis. The patient needs a nerve conduction study and EMG, which can be done at the rehabilitation facility. She received steroids and showed improvement without any side effects. We will continue with Eliquis with atrial fibrillation in this patient. Shaneka Russell MD AM/SRINI /[id number]
[2020-08-08] VITALS (8 sets, daily range): BP systolic 121–150; BP diastolic 57–73
[2020-08-08 06:10] LABS: HEMATOCRIT 25.8 % (34.2-44.1); HEMOGLOBIN 8.1 g/dL (12.0-16.0); LYMPHOCYTES # (AUTO) 0.4 (1.0-3.2); LYMPHOCYTES % 8.2 % (18.0-39.1); MEAN CORPUSCULAR HEMOGLOBIN 30.1 pg (28-32); MEAN CORPUSCULAR HGB CONC 31.4 g/dL (31-35); MEAN CORPUSCULAR VOLUME 95.9 fL (81-99); MONOCYTES # (AUTO) 0.5 (0.2-0.8); MONOCYTES % 10.4 % (4.4-11.3); NEUTROPHILS # (AUTO) 3.6 (2.1-6.9); NEUTROPHILS % 80.7 % (38.7-80.0); PLATELET COUNT 184 x10e3/uL (140-360); RED BLOOD COUNT 2.69 x10e6/uL (3.6-5.1)
[2020-08-08 06:26] LABS: ALBUMIN 2.4 g/dL (3.5-5.0); ALBUMIN/GLOBULIN RATIO 0.9 (0.8-2.0); CALCIUM 7.9 mg/dL (8.4-10.2); CREATININE, SERUM 1.08 mg/dL (0.57-1.11); MAGNESIUM 2.1 MG/DL (1.3-2.1); PHOSPHORUS 2.2 MG/DL (2.3-4.7)
[2020-08-08] MEDS: LEVOTHYROXINE SODIUM 75 MCG TAB PO SCH (06:33)
[2020-08-08 06:38] LABS: CALCIUM IONIZED 1.1 mmol/L (1.09-1.30)
[2020-08-08] MEDS ORDERED: PREDNISONE 20 MG TAB PO SCH (09:00)
[2020-08-08] MEDS: AMIODARONE HCL 200 MG TAB PO SCH (09:03)
[2020-08-08] MEDS: DOCUSATE SODIUM 100 MG CAP PO SCH (09:03)
[2020-08-08] MEDS: HYDROXYCHLOROQUINE SULFATE 200 MG TAB PO SCH (09:04)
[2020-08-08] MEDS: BACLOFEN 10 MG TAB PO SCH (09:04)
[2020-08-08] MEDS: APIXAB 2.5 MG TABLET PO SCH ×2 (09:04→17:08)
[2020-08-08] MEDS: MUPIROCIN 2% OINT 22 GM TUBE TOP SCH (09:05)
[2020-08-08] MEDS: METOPROLOL TARTRATE 25 MG TAB PO SCH ×2 (09:07→20:54)
--- NOTE | 2020-08-08 09:25 | NUR ---
Spoke with Malou with [facility] for update on referral status. States pt is in precert. Will get additional update at noon.
--- NOTE | 2020-08-08 11:59 | NUR ---
Progress Note Subjective 08/08: No acute overnight events. Did well over the weekend. Completed decadron, now on prednisone taper. Awaiting acceptance by [facility] inpatient [facility]hab. 08/05: Started on decadron per Dr Russell. Also placed in a right knee brace per Dr Means for right tibial fracture, pending outside records for comparison to finalize plan. Evaluating for inpatient rehab or SNF. 08/04: MRI brain, c-spine, t-spine without evidence of MS flare. These studies were without contrast as patient has CKD. Also, consulted Dr Means for assistance with pelvic fracture and R knee. Doing well today, PT ordered yesterday. History of Present Illness Ms Villanueva is a 70 yo F with PMH significant for multiple sclerosis, SLE, RA, and paroxysmal Afib who presented for progressive lower extremity weakness and a recent fall. Patient states she slipped and fell 2 days prior to admission when walking on a sidewalk and stepping on the curb, falling, and hitting her head on the pavement. Denies losing consciousness at the time and states it was a misstep, however she does note she was feeling less balanced and sturdy on her feet. She was taking to a freestanding ER where CT head was negative for bleed, received stitches for her wounds, and sent home. Since then she has been feeling progressively weaker in her bilateral lower extremities and presented to [facility] ED for further evaluation. CXR and neck xray normal. Pelvic xray with possible nondisplaced ischial tuberosity fracture vs enthesopathic changes. Physical Exam Vitals: Temp: 98.2P: 67BP: 150/64RR: 18SpO2: 99% General Appearance: The patient is alert, oriented and in no acute distress. Appears euvolemic. Skin: Warm and hydrated without any rash. HEENT: Head is normocephalic, +large laceration to right jehovah's witness with crusted blood, sutures in place, no active bleeding; Nontender sinuses. Pupils are equal and reactive. The nares are patent. Oropharynx is moist and clear without lesions. Neck: Supple without lymphadenopathy. No JVD. Thyroid NV/[employer] Heart / Cardiovascular: Regular rate and rhythm. Normal S1 and S2 without S3/S4. No murmurs, rubs or gallops. Peripheral pulses symmetric +2. Respiratory / Chest: No crackles or wheezes are heard. Symmetric breath sounds. Preserved chest expansion. Abdomen: Soft, nontender, nondistended with good bowel sounds heard. No clinical organomegaly. Renal: There is no costovertebral angle tenderness. Extremities: Without cyanosis, clubbing or edema. Preserved ROM. +right knee in brace Neurological: Gross nonfocal. Patient oriented x 3. Cranial nerves II - XII Grossly intact. DTRs +2. MS: bilateral upper extremities 4- / 5 strength; bilateral lower extremities 3+ / 5 strength and symmetrical Assessment/Plan #Bilateral lower extremity weakness #Gait instability/ataxia? - DDX: MS flare vs stroke vs metabolic cause - MRI Brain, c-spine, t-spine without evidence of stroke or MS flare, however study is limited as we could not use contrast - consult Neurology Dr Russell, appreciate assistance - at this time, low suspicion for metabolic cause of her weakness (no signs of infection, no confusion, labs largely unremarkable) - to clarify, patient never lost consciousness and does not require syncopal work-up - per neuro, completed decadron, now on prednisone taper - 20mg prednisone now, switch to 10mg prednisone daily from 08/10-08/14, then go down to prednisone 5mg daily and keep her there until she can follow up with her legal collector after inpatient rehab #Nondisplaced vertical fracture of the right lateral tibial plateau - originally consulted Dr Means for concern of pelvic fracture, however this appears to be an old fracture; she complained of right knee pain so MRI ordered which showed nondisplaced fracture of right lateral tibial plateau - Dr Means to evaluate, placed in brace, will compare prior images from another facility to see if this is a new vs old fracture, likely an old fracture, will keep in brace #Afib - continue home eliquis and amiodarone - starting metoprolol tartrate 25mg BID #severe protein calorie malnutrition - has bitemporal wasting and low BMI, overall debilitated - started on boost TID for protein supplementation - PT #Disposition - given her weakness and right tibial fracture, patient would benefit from inpatient rehab vs SNF Lazaro Portillo MD Internal Medicine
[2020-08-08] MEDS: HYDROCODONE/APAP 10MG-325MG TAB PO PRN (12:07)
--- NOTE | 2020-08-08 16:25 | NUR ---
Reached out to Malou with [facility] for an update. No response. Left message.
--- NOTE | 2020-08-08 16:31 | NUR ---
Mic Westfall, still pending auth.
--- NOTE | 2020-08-08 18:31 | NUR ---
Notified family of pt transfer and called report to Venus at [facility] rehab.
--- NOTE | 2020-08-08 19:00 | NUR ---
Resumed care of patient. Patient awake and resting in bed, no s/s of distress at this time. Immobilizer in place to right lower extremity, colostomy to RLQ. Pending transfer to [facility] and awaiting EMS. Bed locked and in lowest position, side rails upx3, alarm on, call light placed within reach. All safety measures in place.
--- NOTE | 2020-08-08 21:04 | Progress Note ---
DATE: SUBJECTIVE: The patient is doing fine. She is on a weaning dose of prednisone. Awaiting transfer to rehab. She had an MRI of the knee and she is being evaluated by Orthopedics. PHYSICAL EXAMINATION: Essentially unchanged. Diffuse weakness and decreased vibration and proprioception distally with normal cranial nerve exam and mental status examination. MEDICATIONS: Per list. ASSESSMENT: The patient with vasculitic disease related to rheumatoid arthritis and/or systemic lupus erythematosus with a diagnosis of multiple sclerosis, on no immune modulating treatment. The imaging did not show any new lesions. The patient received steroids for this admission as a treatment for a flare up of her rheumatoid arthritis. 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 She is on weaning dose of prednisone. We will continue with full anticoagulation as well as statins because of her atrial fibrillation and risk for strokes. Shaneka Russell MD AM/SRINI /[id number]
--- NOTE | 2020-08-08 21:21 | NUR ---
Patient transferring to [facility] rehab via EMS. Transition of care arranged. Patient in stable condition, no s/s of distress at this time. All personal belongings with patient.
[2020-08-10] MEDS ORDERED: PREDNISONE 10 MG TAB PO SCH (09:00)
--- NOTE | 2020-08-10 21:45 | NUR ---
Discharge Summary Patient: Jorge Alberto Villanueva Admission date: 08/03/2020 Discharge date: 08/08/2020 Attending physician: Lazaro Portillo MD Consultation: Dr Shaneka Russell, neurology Dr Storm Mann, orthopedic surgery Admitting Diagnosis: bilateral lower extremity weakness, gait instability, nondisplaced vertical fracture of the right lateral tibial plateau, paroxysmal atrial fibrillation, severe protein calorie malnutrition, multiple sclerosis, rheumatoid arthritis, systemic lupus erythematosus Discharge Diagnosis: bilateral lower extremity weakness, gait instability, nondisplaced vertical fracture of the right lateral tibial plateau, paroxysmal atrial fibrillation, severe protein calorie malnutrition, multiple sclerosis, rheumatoid arthritis, systemic lupus erythematosus Procedures: None Hospital Course: Ms Villanueva is a 70 yo F with PMH significant for multiple sclerosis, SLE, RA, and paroxysmal Afib who presented for progressive lower extremity weakness and a recent fall. Patient states she slipped and fell 2 days prior to admission when walking on a sidewalk and stepping on the curb, falling, and hitting her head on the pavement. Denies losing consciousness at the time and states it was a misstep, however she does note she was feeling less balanced and sturdy on her feet. She was taking to a freestanding ER where CT head was negative for bleed, received stitches for her wounds, and sent home. Since then she has been feeling progressively weaker in her bilateral lower extremities and presented to [facility] ED for further evaluation. CXR and neck xray normal. Pelvic xray with possible nondisplaced ischial tuberosity fracture vs enthesopathic changes. Dr Mann consulted for assistance with possible pelvic fracture, reviewed images and believes this was an old fracture. We then ordered right knee Xray as she had significant pain there, then found to have nondisplaced vertical fracture of the right tibial plateau then placed in a brace. Dr Mann decided against surgery. Patient was having significant bilateral lower extremit y weakness and gait instability which she states is why she fell (never lost consciousness). Dr Russell consulted for assistance with suspected MS flare. We ordered MRI brain, c-spine, and t-spine which demonstrated old MS lesions and no evidence of flare. Dr Russell believed this could be due to her RA and received decadron drip then transitioned to prednisone taper. She worked with PT and felt like her lower extremities were stronger. She was discharged to inpatient rehab to improve her lower extremity strength and gait. Physical Exam Vitals: Temp: 98.2P: 67BP: 150/64RR: 18SpO2: 99% General Appearance: The patient is alert, oriented and in no acute distress. Appears euvolemic. Skin: Warm and hydrated without any rash. HEENT: Head is normocephalic, +large laceration to right restoration with crusted blood, sutures in place, no active bleeding; Nontender sinuses. Pupils are equal and reactive. The nares are patent. Oropharynx is moist and clear without lesions. Neck: Supple without lymphadenopathy. No JVD. 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 Normal S1 and S2 without S3/S4. No murmurs, rubs or gallops. Peripheral pulses symmetric +2. Respiratory / Chest: No crackles or wheezes are heard. Symmetric breath sounds. Preserved chest expansion. Abdomen: Soft, nontender, nondistended with good bowel sounds heard. No clinical organomegaly. Renal: There is no costovertebral angle tenderness. Extremities: Without cyanosis, clubbing or edema. Preserved ROM. +right knee in brace Neurological: Gross nonfocal. Patient oriented x 3. Cranial nerves II - XII Grossly intact. DTRs +2. MS: bilateral upper extremities 4- / 5 strength; bilateral lower extremities 3+ / 5 strength and symmetrical Discharge medications: see medication reconciliation Discharge plan: Condition on discharge: good Activity: as tolerated Diet: discharge diet Follow-up: follow up with your PCP and neurologist after discharge from inpatient rehab facility Time spent on discharge: 45 minutes
== END 2020-08-08 21:21 | DRG 562 ==
LOC: ER 21:16 → ERHOLD 08-03 01:54 → MED/SURG2 08-03 11:31 → OBSVTOIN 08-04 09:27
PROVIDERS: ADMIT Internal Medicine; ATTEND Internal Medicine
DX: S82.144A Nondisplaced bicondylar fracture of right tibia, initial encounter for closed fracture (principal); E43 Unspecified severe protein-calorie malnutrition; G35 Multiple sclerosis; I48.0 Paroxysmal atrial fibrillation; N18.9 Chronic kidney disease, unspecified; M06.9 Rheumatoid arthritis, unspecified; M32.9 Systemic lupus erythematosus, unspecified; Z88.2 Allergy status to sulfonamides; Z88.8 Allergy status to other drugs, medicaments and biological substances; W17.89XA Other fall from one level to another, initial encounter; Z91.81 History of falling; Y93.01 Activity, walking, marching and hiking; Y92.242 Post office as the place of occurrence of the external cause; Z68.22 Body mass index [BMI] 22.0-22.9, adult
CPT/HCPCS: 36415; 70450; 70551; 71045; 72125; 72141; 72146; 72170; 80053; 82550; 82553; 83735; 84100; 84484; 85025; 97139; 99251; 99285; G0378; J2270; J2930; J7050; J7512; U0002